=== PATIENT | female | born 1950 | race Hispanic/Latino ===

== ENCOUNTER 2017-01-06 15:58 | Inpatient (IN) | payer MEDICARE, OTHER ==
[2017-01-06 16:40] LABS: ABG ALLEN TEST YES; ARTERIAL BLOOD GAS HCO3 25.2 mmol/L (21-28); ARTERIAL BLOOD GAS O2 SAT 98.1 % (95-98); ARTERIAL BLOOD GAS PCO2 41 mm/Hg (35-45); ARTERIAL BLOOD GAS PO2 67 mm/Hg (80-100); ARTERIAL BLOOD GAS TCO2 26.7 mmol/L (22-28)
[2017-01-06] MEDS ORDERED: Nitroglycerin 2% Ointment Foilpak UD TOP STA (16:43)
--- NOTE | 2017-01-06 17:00 | RAD ---
HISTORY: sob COMPARISON: Comparison made with chest radiograph and CTA chest both dated 02/04/2016. FINDINGS: LUNGS: The current study re- demonstrates in situ left-sided MediPort with tip in the SVC/RA junction. Lung caraballo appear overinflated with consistent with emphysema. There appears to be some mild bibasilar atelectasis/scarring changes. PLEURA: No evidence of effusion or pneumothorax. No significant pleural effusion identified, no pneumothorax apparent. CARDIOVASCULAR: Normal. OSSEOUS STRUCTURES: No significant abnormalities. VISUALIZED UPPER ABDOMEN: Normal. OTHER FINDINGS: None. IMPRESSION: Hyperinflation without secondary underlying emphysema seen to much better advantage on prior CTA chest. Bibasilar atelectasis/scarring.
--- NOTE | 2017-01-06 17:22 | ED PDOC ---
HPI: SOB/CHF/COPD Time Seen by Provider: 01/06/17 16:12 Chief Complaint (Nursing): Respiratory Distress Chief Complaint (Provider): Weakness History Per: Patient History/Exam Limitations: no limitations Onset/Duration Of Symptoms: Days (3) Current Symptoms Are (Timing): Still Present Quality: Other (chest heaviness) Additional Complaint(s): The patient is a 66yo female, presents to the Ed for evaluation of weakness which started about three days ago but has been progressively worsening. Pt reports she fees light headed and as if she will pass out; additionally reports she is having neck pain. Pt reports she has shortness of breath, cough and phlegm which are chronic due to her COPD but have recently worsened; states she has been using more Albuterol than usual. She reports associated chest heaviness but denies any fever, chest pain, leg swelling, focal weaknesses or blurry vision. Pt does not offer any other medical complaints. PMHx: COPD, kidney failure, electrolyte abnormalities, HTN (taken off medications 10 yrs ago). PCP: Dr. Jared Culver Past Medical History Reviewed: Historical Data, Nursing Documentation, Vital Signs Vital Signs: Last Vital Signs Temp 98.6 F 01/06/17 16:02 Pulse 85 01/06/17 17:41 Resp 20 01/06/17 16:02 BP 206/92 H 01/06/17 16:02 Pulse Ox 94 L 01/06/17 17:41 - Medical History PMH: COPD, Fibromyalgia, HTN (not on meds) Denies: Chronic Kidney Disease Other PMH: Kidney failure, electrolyte abnormalities - Surgical History Surgical History: Cholecystectomy, Hernia Repair (ileostomy s/p complications with hernia repair) Other surgeries: port-a-cath - Family History Family History: States: [place] (father ( at age 48), brother ( at age 55)) - Social History Current smoker - smoking cessation education provided: Yes Alcohol: None Drugs: Denies - Immunization History Hx Tetanus Toxoid Vaccination: No Hx Influenza Vaccination: Yes Hx Pneumococcal Vaccination: Yes - Home Medications Home Medications: Ambulatory Orders Medication Instructions Recorded Alprazolam [Xanax] 0.5 mg PO HS 02/02/16 Budesonide/Formoterol Fumarate 2 puff IH Q12H 02/02/16 [Symbicort 160-4.5 Mcg Inhaler] Cyanocobalamin [Vitamin B12 1000 1,000 mcg IM Q14D 02/02/16 mcg/ml Inj] Ergocalciferol (Vitamin D2) 50,000 unit PO MWF 02/02/16 [Vitamin D] HYDROmorphone [Dilaudid] 2 mg PO Q4 PRN 02/02/16 Multivitamin/Iron/Folic Acid 1 tab PO DAILY 02/02/16 [Daily Multivitamin-Iron Tablet] Omeprazole 40 mg PO DAILY 02/02/16 Sodium Bicarbonate 325 mg PO BID 02/02/16 Zolpidem [Ambien] 5 mg HS 02/02/16 traZODone [Desyrel] 100 mg PO HS 02/02/16 Albuterol Sulfate [Proair Hfa] 2 puff IH Q4H PRN 01/06/17 Cetirizine HCl [All Day Allergy 10 mg PO QPM 01/06/17 Relief] Fluticasone Nasal [Flonase] 2 spray PRATIBHA HS PRN 01/06/17 Octreotide [SandoSTATIN] 100 mcg SQ BID 01/06/17 Zolpidem [Ambien] 5 mg PO HS 01/06/17 - Allergies Allergies/Adverse Reactions: Allergies Allergy/AdvReac Type Severity Reaction Status Date / Time Sulfa (Sulfonamide Allergy crystallized Verified 02/02/16 18:10 Antibiotics) kidneys Review of Systems ROS Statement: Except As Marked, All Systems Reviewed And Found Negative Constitutional: Negative for: Fever Eyes: Negative for: Vision Change Cardiovascular: Positive for: Light Headedness, Other (chest heaviness). Negative for: Chest Pain Respiratory: Positive for: Cough, Shortness of Breath, Sputum Neurological: Negative for: Weakness Physical Exam - Reviewed Nursing Documentation Reviewed: Yes Vital Signs Reviewed: Yes - Physical Exam Appears: Positive for: Non-toxic, Uncomfortable (tired appearing; very hypertensive) Head Exam: Positive for: ATRAUMATIC, NORMAL INSPECTION, NORMOCEPHALIC Skin: Positive for: Normal Color, Warm Eye Exam: Positive for: Normal appearance Neck: Positive for: Normal, Painless ROM, Supple Respiratory: Positive for: Rhonchi (coarse rhonchi diffusely) Gastrointestinal/Abdominal: Positive for: Normal Exam Extremity: Positive for: Pedal Edema (trace b/l leg edema) Neurologic/Psych: Positive for: Alert, Oriented - Laboratory Results Result Diagrams: 01/06/17 17:10 01/06/17 17:10 - ECG ECG: Positive for: Interpreted By Me, Viewed By Me ECG Rhythm: Positive for: Sinus Rhythm, 1st Degree Heart Block. Negative for: ST/T Changes Rate: 85 O2 Sat by Pulse Oximetry: 94 (RA) Pulse Ox Interpretation: Normal (low normal, c/w COPD) - Radiology X-Ray: Read By Radiologist - Progress Re-evaluation Time: 18:00 Condition: Improving,but remains with symptoms - Critical Care Total Time (In Min): 30 Documented Critical Care: Time excludes all time spent performint seperately billable procedures Medical Decision Making Medical Decision Making: Time: 1630 Impression: Weakness and HTN Differential: ACS, CHF, HTN encephalopathy electrolyte abnormality, acute kidney injury or failure. Plan: -- EKG -- Bloodwork -- Albuterol -- Solumedrol -- Nitrobid 2% Reassess Accession No. : [id number] Patient Name / ID : JORDEN DILL / [id number] Exam Date : 01/06/2017 16:44:06 ( Approved ) Study Comment : Sex / Age : F / 66Y Creator : Jan Patricio MD Dictator : Jan Patricio MD Research Contracts Supervisor : Inventory Specialist Manager : Jan Patricio MD Approver2 : Report Date : 01/06/2017 16:58:55 My Comment : HISTORY: sob COMPARISON: Comparison made with chest radiograph and CTA chest both dated 02/04/2016. FINDINGS: LUNGS: The current study re- demonstrates in situ left-sided MediPort with tip in the SVC/RA junction. Lung caraballo appear overinflated with consistent with emphysema. There appears to be some mild bibasilar atelectasis/scarring changes. PLEURA: No evidence of effusion or pneumothorax. No significant pleural effusion identified, no pneumothorax apparent. CARDIOVASCULAR: Normal. OSSEOUS STRUCTURES: No significant abnormalities. VISUALIZED UPPER ABDOMEN: Normal. OTHER FINDINGS: None. IMPRESSION: Hyperinflation without secondary underlying emphysema seen to much better advantage on prior CTA chest. Bibasilar atelectasis/scarring. Mild hyponatremia, hypomagnesemia, otherwise no clinically significant lab abnormalities. Ms Kaiser presents with COPD exacerbation (by history, increased use of nebulizer and exam findings of rhonchi) and new accelerated hypertension ( currently not on medications) and neck pain which may be atypical angina. Will need admission for stabilization of multisystem conditions. [facility] Cook admitting for PMD Dr Rodriguez. Requests Dr Martinez for Cardiology. DW pt findings and plan of care. Scribe Attestation: Documented by Christin Jung acting as a scribe for Jane Rivera MD. Provider Attestation: All medical record entries made by the Scribe were at my direction and personally dictated by me. I have reviewed the chart and agree that the record accurately reflects my personal performance of the history, physical exam, medical decision making, and the department course for this patient. I have also personally directed, reviewed, and agree with the discharge instructions and disposition. Disposition - Clinical Impression Clinical Impression: Hyponatremia, COPD exacerbation, Hypertension, uncontrolled Counseled Patient/Family Regarding: Studies Performed, Diagnosis - Disposition Disposition Time: 18:00 Condition: FAIR - Pt Status Changed To: Hospital Disposition Of: Inpatient - Admit Certification Admit to Inpatient:: After my assessment, the patient will require hospitalization for at least two midnights. This is because of the severity of symptoms shown, intensity of services needed, and/or the medical risk in this patient being treated as an outpatient. - POA Present On Arrival: None
[2017-01-06 17:32] LABS: ALB/GLOB RATIO 1.6 (1.0-2.1); ALBUMIN 4.3 g/dL (3.5-5.0); ALT/SGPT 34 U/L (9-52); AST/SGOT 27 U/L (14-36); BLOOD UREA NITROGEN 10 mg/dl (7-17); CALCIUM 9.5 mg/dL (8.4-10.2); GFR AFRICAN-AMERICAN > 60; GFR NON-AFRICAN AMERICAN 55; MAGNESIUM 1.2 MG/DL (1.6-2.3)
[2017-01-06 17:34] LABS: BASO # 0.1 K/uL (0.0-0.2); EOS # 0.2 K/uL (0.0-0.7); EOS % 2.7 % (0.0-4.0); HEMOGLOBIN 13.3 g/dL (12.0-16.0); LYMPH # 1.7 K/uL (1.0-4.3); LYMPH % 22.3 % (20.0-40.0); MEAN CORPUSCULAR HEMOGLOBIN 31.3 pg (27.0-31.0); MEAN PLATELET VOLUME 7.4 fl (7.2-11.7); MONO # 0.7 K/uL (0.0-0.8); MONO % 8.5 % (0.0-10.0); NEUT # 5.1 K/uL (1.8-7.0); NEUT % 65.5 % (50.0-75.0); RBC 4.25 Mil/uL (3.80-5.20); RED CELL DISTRIBUTION WIDTH 14.1 % (11.5-14.5); WHITE BLOOD COUNT 7.7 K/uL (4.8-10.8)
[2017-01-06] MEDS ORDERED: Albuterol-Ipratrop 3 mg / 0.5 (3 ml) UD INH STA (17:37)
[2017-01-06] MEDS ORDERED: Albuterol-Ipratrop 3 mg / 0.5 (3 ml) UD ONE (17:39)
[2017-01-06 17:44] LABS: B-TYPE NATRIURETIC PEPTIDE 228 pg/ml (0-900)
[2017-01-06 18:00] LABS: PARTIAL THROMBOPLASTIN TIME 137.3 Seconds (25.6-37.1); PROTHROMBIN TIME 10.8 Seconds (9.8-13.1)
[2017-01-06] MEDS ORDERED: Magnesium Sulfate 2 gm/50 ml 2 GM/50 ML BAG IVPB ONE (18:04)
[2017-01-06] MEDS ORDERED: Magnesium Sulfate 2 gm/50 ml 2 GM/50 ML BAG ONE (18:40)
[2017-01-06] MEDS ORDERED: Albuterol-Ipratrop 3 mg / 0.5 (3 ml) UD INH PRN (23:40)
[2017-01-06] MEDS ORDERED: Patient's Own Med (Budesonide/Formoterol Fumarate [Symbicort 160-4.5 Mcg Inhaler] 2 PUFF) IH SCH (23:45)
[2017-01-06] MEDS ORDERED: Patient's Own Med (Albuterol Sulfate 2 PUFF) IH PRN (23:46)
[2017-01-07] MEDS ORDERED: Albuterol HFA 90 mcg/actuation (8 g) INH PRN (00:25)
[2017-01-07 06:08] LABS: HEMOGLOBIN 13.6 g/dL (12.0-16.0); MEAN CORPUSCULAR HEMOGLOBIN 31.8 pg (27.0-31.0); MEAN CORPUSCULAR HGB CONC 33.8 g/dL (33.0-37.0); RBC 4.26 Mil/uL (3.80-5.20); WHITE BLOOD COUNT 8.4 K/uL (4.8-10.8)
[2017-01-07 06:15] LABS: ALB/GLOB RATIO 1.5 (1.0-2.1); ALBUMIN 4.7 g/dL (3.5-5.0); ALT/SGPT 33 U/L (9-52); AST/SGOT 33 U/L (14-36); BLOOD UREA NITROGEN 10 mg/dl (7-17); CALCIUM 9.9 mg/dL (8.4-10.2); GFR AFRICAN-AMERICAN > 60; GFR NON-AFRICAN AMERICAN > 60
[2017-01-07] MEDS ORDERED: PRO AIR HFA 8.5GM INHALER(FOR OR USE ONLY) IH PRN (07:30)
[2017-01-07] MEDS: Fluticasone-Salmeterol 250-50mcg Diskus IH SCH ×2 (08:42→10:26)
[2017-01-07] MEDS: Pantoprazole 40 mg EC Tab PO SCH (08:44)
[2017-01-07] MEDS: Multivitamin With Minerals Tab PO SCH (08:45)
[2017-01-07] MEDS ORDERED: IRON PO SCH (09:00)
[2017-01-07] MEDS ORDERED: Patient's Own Med (Omeprazole [Omeprazole] 40 MG) PO SCH (09:00)
[2017-01-07] MEDS ORDERED: MULTIVITAMIN PO SCH (09:00)
[2017-01-07] MEDS ORDERED: FOLIC ACID PO SCH (09:00)
--- NOTE | 2017-01-07 09:50 | CARD ---
APPROVED REPORT EKG Measurement Heart [id number] <Conclusion> Sinus rhythm with 1st degree AV block Otherwise normal ECG
--- NOTE | 2017-01-07 13:51 | CP.PCM.CON ---
History of Present Illness - History of Present Illness History of Present Illness: THE PATIENT IS A 66 YEAR OLD FEMALE WITH A HISTORY OF COPD WITH A LONG HISTORY OF CIGARETTE SMOKING UP TO 3 PACKS PER DAY. SHE ALSO HAS A HISTORY OF HYPERTENSION, ANXIETY AND AN ELECTROLYTE IMBALANCE RESULTING FROM SURGERY FOR AN ABDOMINAL HERNIA WITH COMPLICATIONS THAT RESULTED IN A PERMANENT ILIOSTOMY. SHE STATES SHE WAS TOLD YEARS AGO THAT SHE DIDN'T NEED HER MEDICINE FOR HYPERTENSION ANY MORE AND SHE STOPPED TAKING IT. FOR A FEW WEEKS NOW SHE HAD AN INCREASE IN HER CHRONIC SOB, COUGH AND PHLEGM PRODUCTION. SHE NOW FELT WEAK AND TIRED FELT IF SHE MAY BLACK OUT SO SHE CAME TO THE ER. IN THE ER SHE WAS FOUND TO HAVE EXACERBATION OF COPD AND HYPERTENSION AND WAS ADMITTED. CARDIOLOGY WAS CALLED FOR HYPERTENSION AND CHEST PRESSURE. BUT, SHE ABSOLUTELY DENIES ANY CHEST PAIN OF ANY KIND TO ME. Past Patient History - Past Medical History & Family History Past Medical History?: Yes - Past Social History Smoking Status: Current Some Days Smoker - CARDIAC Hx Cardiac Disorders: Yes Hx Hypertension: Yes (not on any medication) - PULMONARY Hx Respiratory Disorders: Yes Hx Chronic Obstructive Pulmonary Disease (COPD): Yes - NEUROLOGICAL Hx Neurological Disorder: Yes Other/Comment: FIBROMYALGIA - HEENT Hx HEENT Problems: No - RENAL Hx Chronic Kidney Disease: No - ENDOCRINE/METABOLIC Hx Endocrine Disorders: No - HEMATOLOGICAL/ONCOLOGICAL Hx Blood Disorders: No Other/Comment: cytomegalovirus - INTEGUMENTARY Hx Dermatological Problems: No - MUSCULOSKELETAL/RHEUMATOLOGICAL Hx Musculoskeletal Disorders: No Hx Falls: No - GASTROINTESTINAL Hx Gastrointestinal Disorders: Yes Hx Ileostomy: Yes - GENITOURINARY/GYNECOLOGICAL Hx Genitourinary Disorders: No - PSYCHIATRIC Hx Psychophysiologic Disorder: Yes Hx Anxiety: Yes Hx Substance Use: No - SURGICAL HISTORY Hx Surgeries: Yes Hx Cholecystectomy: Yes Hx Herniorrhaphy: Yes Hx Hysterectomy: Yes (ovary removal) - ANESTHESIA Hx Anesthesia: Yes Hx Anesthesia Reactions: No Hx Malignant Hyperthermia: No Has any member of the family had a problem w/ anesthesia?: No Meds Allergies/Adverse Reactions: Allergies Allergy/AdvReac Type Severity Reaction Status Date / Time Sulfa (Sulfonamide Allergy crystallized Verified 02/02/16 18:10 Antibiotics) kidneys - Medications Medications: Current Medications Albuterol Sulfate (Proair Hfa) 2 puff IH RQ4 PRN PRN Reason: Shortness of Breath Albuterol/Ipratropium (Duoneb 3 Mg/0.5 Mg (3 Ml) Ud) 3 ml INH RQ6 PRN PRN Reason: Shortness of Breath Last Admin: 01/07/17 00:49 Dose: 3 ml Alprazolam (Xanax) 0.5 mg PO Q12 [facility] Last Admin: 01/07/17 08:48 Dose: 0.5 mg Amlodipine Besylate (Norvasc) 10 mg PO DAILY [facility] Last Admin: 01/07/17 08:44 Dose: 10 mg Cyanocobalamin (Vitamin B12 1000 Mcg/Ml Inj) 1,000 mcg IM Q14D [facility] Last Admin: 01/07/17 01:03 Dose: Not Given Ergocalciferol (Drisdol 50,000 Intl Units Cap) 1 cap PO MWF [facility] Fluticasone Propionate (Flonase) 2 spr PRATIBHA HS PRN PRN Reason: Allergy symptoms Hydromorphone HCl (Dilaudid) 2 mg PO Q4 PRN PRN Reason: Pain, severe (8-10) Last Admin: 01/07/17 10:58 Dose: 2 mg Loratadine (Claritin) 10 mg PO QPM [facility] Multivitamins/Minerals (Therapeutic-M Tab) 1 tab PO DAILY [facility] Last Admin: 01/07/17 08:45 Dose: 1 tab Nicotine (Nicoderm Cq) 1 patch TD DAILY [facility] Last Admin: 01/07/17 08:44 Dose: 1 patch Octreotide Acetate (Sandostatin) 100 mcg SC BID [facility] Last Admin: 01/07/17 08:44 Dose: 100 mcg Pantoprazole Sodium (Protonix Ec Tab) 40 mg PO DAILY [facility] Last Admin: 01/07/17 08:44 Dose: 40 mg Fluticasone/Salmeterol (Advair Diskus 250/50) 2 puff IH Q12 [facility] Last Admin: 01/07/17 10:26 Dose: Not Given Sodium Bicarbonate (Sodium Bicarbonate Tab) 325 mg PO BID [facility] Last Admin: 01/07/17 08:45 Dose: 325 mg Trazodone HCl (Desyrel) 100 mg PO HS [facility] Last Admin: 01/07/17 00:33 Dose: 100 mg Zolpidem Tartrate (Ambien) 5 mg PO HS [facility] Last Admin: 01/07/17 00:39 Dose: 5 mg Physical Exam - Respiratory Exam Respiratory Exam: Rhonchi, Wheezes - Cardiovascular Exam Cardiovascular Exam: REGULAR RHYTHM, +S1, +S2 - Extremities Exam Extremities exam: Positive for: normal inspection - Additional Findings Additional findings: EKG NSR, FIRST DEGREE AV BLOCK TROPONIN NORMAL X 3 CXR CHRONIC CHANGES NA 129 Results - Vital Signs Recent Vital Signs: Last Vital Signs Temp 97.4 F L 01/07/17 12:16 Pulse 84 01/07/17 12:16 Resp 20 01/07/17 12:16 BP 142/77 01/07/17 12:16 Pulse Ox 94 L 01/07/17 12:16 - Labs Result Diagrams: 01/07/17 05:40 01/07/17 05:40 Labs: Laboratory Results - last 24 hr 01/07/17 01/07/17 01/07/17 00:30 05:40 05:40 WBC 8.4 RBC 4.26 Hgb 13.6 Hct 40.1 MCV 94.0 MCH 31.8 H MCHC 33.8 RDW 14.0 Plt Count 206 APTT 34.6 D Sodium Potassium Chloride Carbon Dioxide Anion Gap BUN Creatinine Est GFR ( Amer) Est GFR (Non-Af Amer) Random Glucose Calcium Total Bilirubin AST ALT Alkaline Phosphatase Troponin I < 0.0120 Total Protein Albumin Globulin Albumin/Globulin Ratio 01/07/17 01/07/17 05:40 08:30 WBC RBC Hgb Hct MCV MCH MCHC RDW Plt Count APTT Sodium 130 L Potassium 4.0 Chloride 95 L Carbon Dioxide 23 Anion Gap 16 BUN 10 Creatinine 0.9 Est GFR ( Amer) > 60 Est GFR (Non-Af Amer) > 60 Random Glucose 140 H Calcium 9.9 Total Bilirubin 0.6 AST 33 ALT 33 Alkaline Phosphatase 81 Troponin I < 0.0120 Total Protein 7.7 Albumin 4.7 Globulin 3.1 Albumin/Globulin Ratio 1.5 Assessment & Plan - Assessment and Plan (Free Text) Assessment: COPD EXACERBATION HYPERTENSION HYPONATREMIA Plan: CONTINUE AMLODIPINE AND BRONCHODILATORS ECHOCARDIOGRAM
--- NOTE | 2017-01-07 15:17 | CT ---
PROCEDURE: CT HEAD WITHOUT CONTRAST. HISTORY: Possible TIA COMPARISON: 09/21/2010 TECHNIQUE: Axial computed tomography images were obtained through the head/brain without intravenous contrast. Radiation dose: Total exam DLP = 769.48 mGy-cm. This CT exam was performed using one or more of the following dose reduction techniques: Automated exposure control, adjustment of the mA and/or kV according to patient size, and/or use of iterative reconstruction technique. FINDINGS: HEMORRHAGE: No intracranial hemorrhage. BRAIN: No mass effect or edema. Mild volume loss, essentially stable. Patchy and confluent hypodensities throughout the bilateral cerebral hemispheric white matter are most likely from chronic small vessel ischemic changes. VENTRICLES: Unremarkable. No hydrocephalus. CALVARIUM: Unremarkable. PARANASAL SINUSES: Unremarkable as visualized. No significant inflammatory changes. MASTOID AIR CELLS: Unremarkable as visualized. No inflammatory changes. OTHER FINDINGS: None. IMPRESSION: No CT evidence of acute intracranial hemorrhage or acute territorial infarct. Acute infarction may be CT occult within first 24 hours. If a focal deficit persists, consider followup CT or MRI for further evaluation. Other findings as above
--- NOTE | 2017-01-07 16:33 | US ---
PROCEDURE: Duplex ultrasound of the carotid and vertebral arteries. HISTORY: MD orders COMPARISON: None available. TECHNIQUE: Grayscale and duplex Doppler evaluation of the cervical carotid and vertebral arteries were performed. The common carotid, carotid bifurcations and cervical ICA and proximal ECA were evaluated. The vertebral arteries were evaluated for gross patency and direction. FINDINGS: RIGHT CAROTID ARTERIES: Common Carotid Artery: Patent with minimal calcific plaque. Carotid Bifurcation: Mild heterogeneous plaque. Internal Carotid Artery:Focal calcific plaque in the proximal segment. Maximal flow velocity of 113.6 cm/s. Tortuous course. External Carotid Artery (proximal branches): Patent with no significant focal plaque. ICA/CCA Ratio: 2.3 LEFT CAROTID ARTERIES: Common Carotid Artery: Minimal calcific plaque. Carotid Bifurcation: Heterogeneous plaque. Internal Carotid Artery:Minimal scattered heterogeneous plaque. Maximal flow velocity of 75.5 cm/s. Tortuous course. External Carotid Artery (proximal branches): Patent with no significant focal plaque. ICA/CCA Ratio: 1.7 VERTEBRAL ARTERIES: Right Vertebral Artery: Patent. Antegrade flow. Left Vertebral Artery: Patent. Retrograde flow. OTHER FINDINGS: None. IMPRESSION: No hemodynamically significant stenosis identified in the extracranial internal carotid arteries. Retrograde flow in the left vertebral artery.
[2017-01-07] MEDS: Azithromycin 500 MG in Sodium Chloride 0.9% 250 ML IVPB SCH (17:34)
[2017-01-07] MEDS: Albuterol-Ipratrop 3 mg / 0.5 (3 ml) UD INH SCH (19:31)
[2017-01-07] MEDS: Acetylcysteine 20% Inhal Soln (4ml) INH SCH (19:31)
--- NOTE | 2017-01-07 22:32 | CP.PCM.PN ---
Subjective - Date & Time of Evaluation Date of Evaluation: 01/07/17 Time of Evaluation: 11:00 - Subjective Subjective: 66 year old with history of multiple medical problems Presented to ER with symptoms of worsening cough and shortness of breath over the last week. Patient carries the diagnosis of COPD. She is an active smoker. Patient also has cough with expectoration of yellowish sputum. Patient complains also of dizziness with tendency to fall towards the right side that has been noticed for two weeks duration. Patient has history of complicated abdominal hernia surgery. Currently she has iliostomy. Objective - Vital Signs/Intake and Output Vital Signs (last 24 hours): Temp Pulse Resp BP Pulse Ox 97.8 F 71 18 124/74 93 L 01/07/17 20:30 01/07/17 21:00 01/07/17 20:30 01/07/17 20:30 01/07/17 20:30 Intake and Output: 01/07/17 01/08/17 18:59 06:59 Intake Total 500 Balance 500 - Medications Medications: Current Medications Acetylcysteine (Acetylcysteine 20%) 2 ml INH Q6H [facility] Last Admin: 01/07/17 19:31 Dose: 2 ml Albuterol Sulfate (Proair Hfa) 2 puff IH RQ4 PRN PRN Reason: Shortness of Breath Albuterol/Ipratropium (Duoneb 3 Mg/0.5 Mg (3 Ml) Ud) 3 ml INH RQ6 PRN PRN Reason: Shortness of Breath Last Admin: 01/07/17 00:49 Dose: 3 ml Albuterol/Ipratropium (Duoneb 3 Mg/0.5 Mg (3 Ml) Ud) 3 ml INH RQ6 [facility] Last Admin: 01/07/17 19:31 Dose: 3 ml Alprazolam (Xanax) 0.5 mg PO Q12 [facility] Last Admin: 01/07/17 21:08 Dose: 0.5 mg Amlodipine Besylate (Norvasc) 10 mg PO DAILY [facility] Last Admin: 01/07/17 08:44 Dose: 10 mg Cyanocobalamin (Vitamin B12 1000 Mcg/Ml Inj) 1,000 mcg IM Q14D [facility] Last Admin: 01/07/17 01:03 Dose: Not Given Ergocalciferol (Drisdol 50,000 Intl Units Cap) 1 cap PO MWF [facility] Fluticasone Propionate (Flonase) 2 spr PRATIBHA HS PRN PRN Reason: Allergy symptoms Hydromorphone HCl (Dilaudid) 2 mg PO Q4 PRN PRN Reason: Pain, severe (8-10) Last Admin: 01/07/17 21:13 Dose: 2 mg Azithromycin 500 mg/ Sodium (Chloride) 250 mls @ 250 mls/hr IVPB DAILY [facility] Last Admin: 01/07/17 17:34 Dose: 250 mls/hr Ceftriaxone Sodium 1 gm/ (Sodium Chloride) 100 mls @ 100 mls/hr IVPB DAILY [facility] Last Admin: 01/07/17 17:33 Dose: 100 mls/hr Loratadine (Claritin) 10 mg PO QPM [facility] Last Admin: 01/07/17 17:35 Dose: 10 mg Multivitamins/Minerals (Therapeutic-M Tab) 1 tab PO DAILY [facility] Last Admin: 01/07/17 08:45 Dose: 1 tab Nicotine (Nicoderm Cq) 1 patch TD DAILY [facility] Last Admin: 01/07/17 08:44 Dose: 1 patch Octreotide Acetate (Sandostatin) 100 mcg SC Q12 [facility] Last Admin: 01/07/17 21:16 Dose: 100 mcg Pantoprazole Sodium (Protonix Ec Tab) 40 mg PO DAILY [facility] Last Admin: 01/07/17 08:44 Dose: 40 mg Sodium Bicarbonate (Sodium Bicarbonate Tab) 325 mg PO BID [facility] Last Admin: 01/07/17 17:34 Dose: 325 mg Trazodone HCl (Desyrel) 100 mg PO HS [facility] Last Admin: 01/07/17 00:33 Dose: 100 mg Zolpidem Tartrate (Ambien) 5 mg PO HS [facility] Last Admin: 01/07/17 00:39 Dose: 5 mg - Labs Labs: 01/07/17 05:40 01/07/17 05:40 PT 10.8 Seconds (9.8-13.1) 01/06/17 17:10 INR 1.0 (0.9-1.2) 01/06/17 17:10 APTT 34.6 Seconds (25.6-37.1) D 01/07/17 05:40 - Head Exam Head Exam: ATRAUMATIC, NORMAL INSPECTION, NORMOCEPHALIC - Eye Exam Eye Exam: Conjunctival injection - ENT Exam ENT Exam: Normal Exam - Neck Exam Neck Exam: Full ROM - Respiratory Exam Respiratory Exam: Clear to Ausculation Bilateral, NORMAL BREATHING PATTERN - Cardiovascular Exam Cardiovascular Exam: REGULAR RHYTHM - GI/Abdominal Exam GI & Abdominal Exam: Soft, Normal Bowel Sounds Additional comments: iliostomy is in place - Back Exam Back Exam: Full ROM Assessment and Plan - Assessment and Plan (Free Text) Assessment: Exacerbation of COPD Rule out TIA versus CVA Iliostomy Chest pain Plan: Cardiology and neurology consults and follow recommendations CT head and carotid Doppler Start Solumedrol and bronchodilators Resume home medications Echocardiogram PT
[2017-01-08] MEDS: Albuterol-Ipratrop 3 mg / 0.5 (3 ml) UD INH SCH ×4 (00:59→19:05)
[2017-01-08] MEDS: Acetylcysteine 20% Inhal Soln (4ml) INH SCH ×3 (08:04→19:05)
[2017-01-08] MEDS ORDERED: Azithromycin 500 MG in Sodium Chloride 0.9% 250 ML IVPB SCH (09:00)
[2017-01-08] MEDS ORDERED: ERGOCALCIFEROL 50000 UNIT PO SCH (09:00)
[2017-01-08] MEDS: Multivitamin With Minerals Tab PO SCH (09:01)
[2017-01-08] MEDS: Pantoprazole 40 mg EC Tab PO SCH (09:01)
[2017-01-08] MEDS: Azithromycin 500 MG in Sodium Chloride 0.9% 250 ML IVPB SCH (09:03)
[2017-01-08] MEDS: Ergocalciferol 50,000 Intl Units Cap PO SCH (09:05)
--- NOTE | 2017-01-08 10:45 | CP.PCM.PN ---
Subjective - Date & Time of Evaluation Date of Evaluation: 01/08/17 Time of Evaluation: 08:45 - Subjective Subjective: NO CHEST PAIN BREATHING BETTER Objective - Vital Signs/Intake and Output Vital Signs (last 24 hours): Temp Pulse Resp BP Pulse Ox 97.2 F L 80 20 105/55 L 94 L 01/08/17 08:40 01/08/17 09:09 01/08/17 08:40 01/08/17 09:09 01/08/17 08:40 - Medications Medications: Current Medications Acetylcysteine (Acetylcysteine 20%) 2 ml INH Q6H [facility] Last Admin: 01/08/17 08:04 Dose: 2 ml Albuterol/Ipratropium (Duoneb 3 Mg/0.5 Mg (3 Ml) Ud) 3 ml INH RQ6 PRN PRN Reason: Shortness of Breath Last Admin: 01/07/17 00:49 Dose: 3 ml Albuterol/Ipratropium (Duoneb 3 Mg/0.5 Mg (3 Ml) Ud) 3 ml INH RQ6 [facility] Last Admin: 01/08/17 08:05 Dose: 3 ml Alprazolam (Xanax) 0.5 mg PO Q12 [facility] Last Admin: 01/08/17 09:01 Dose: 0.5 mg Amlodipine Besylate (Norvasc) 10 mg PO DAILY [facility] Last Admin: 01/08/17 09:09 Dose: Not Given Cyanocobalamin (Vitamin B12 1000 Mcg/Ml Inj) 1,000 mcg IM Q14D [facility] Last Admin: 01/07/17 01:03 Dose: Not Given Ergocalciferol (Drisdol 50,000 Intl Units Cap) 1 cap PO MWF [facility] Last Admin: 01/08/17 09:05 Dose: 1 cap Fluticasone Propionate (Flonase) 2 spr PRATIBHA HS PRN PRN Reason: Allergy symptoms Hydromorphone HCl (Dilaudid) 2 mg PO Q4 PRN PRN Reason: Pain, severe (8-10) Last Admin: 01/08/17 01:30 Dose: 2 mg Azithromycin 500 mg/ Sodium (Chloride) 250 mls @ 250 mls/hr IVPB DAILY [facility] Last Admin: 01/08/17 09:03 Dose: 250 mls/hr Ceftriaxone Sodium 1 gm/ (Sodium Chloride) 100 mls @ 100 mls/hr IVPB DAILY [facility] Last Admin: 01/08/17 09:04 Dose: 100 mls/hr Loratadine (Claritin) 10 mg PO QPM [facility] Last Admin: 01/07/17 17:35 Dose: 10 mg Multivitamins/Minerals (Therapeutic-M Tab) 1 tab PO DAILY [facility] Last Admin: 01/08/17 09:01 Dose: 1 tab Nicotine (Nicoderm Cq) 1 patch TD DAILY [facility] Last Admin: 01/08/17 09:05 Dose: 1 patch Octreotide Acetate (Sandostatin) 100 mcg SC Q12 [facility] Last Admin: 01/08/17 09:02 Dose: 100 mcg Pantoprazole Sodium (Protonix Ec Tab) 40 mg PO DAILY [facility] Last Admin: 01/08/17 09:01 Dose: 40 mg Sodium Bicarbonate (Sodium Bicarbonate Tab) 325 mg PO BID [facility] Last Admin: 01/08/17 09:02 Dose: 325 mg Trazodone HCl (Desyrel) 100 mg PO HS [facility] Last Admin: 01/07/17 23:04 Dose: 100 mg Zolpidem Tartrate (Ambien) 5 mg PO HS [facility] Last Admin: 01/07/17 23:04 Dose: 5 mg - Labs Labs: 01/07/17 05:40 01/07/17 05:40 PT 10.8 Seconds (9.8-13.1) 01/06/17 17:10 INR 1.0 (0.9-1.2) 01/06/17 17:10 APTT 34.6 Seconds (25.6-37.1) D 01/07/17 05:40 - Respiratory Exam Respiratory Exam: Clear to Ausculation Bilateral - Cardiovascular Exam Cardiovascular Exam: REGULAR RHYTHM, +S1, +S2 - Extremities Exam Extremities Exam: Normal Inspection - Additional Findings Additional findings: BP 105/55 THIS AM [employer] NSR Assessment and Plan - Assessment and Plan (Free Text) Assessment: COPD EXACERBATION HYPERTENSION HISTORY BUT BLOOD PRESSURE IS LOW ON PRESENT DOSE OF AMLODIPINE Plan: WILL NOT GIVE AMLODIPINE TODAY AND OBSERVE BLOOD PRESSURE AND RESUME IT AT A LOWER DOSE IF NEEDED
[2017-01-08] MEDS: methylPREDNISolone 40 MG in Sodium Chloride 0.9% 50 ML IVPB SCH ×2 (14:19→21:09)
--- NOTE | 2017-01-08 14:30 | CP.PCM.CON ---
History of Present Illness - History of Present Illness History of Present Illness: Mrs. Kaiser is a 66-year-old woman with a past medical history of COPD, hypertension, who states that for the last 3 days, she has been having neck pain and developed difficulty with ambulation, feeling dizzy and wobbly. Head turning and looking down also makes her dizzy. Review of Systems - Review of Systems All systems: reviewed and no additional remarkable complaints except Past Patient History - Past Medical History & Family History Past Medical History?: Yes - Past Social History Smoking Status: Current Some Days Smoker - CARDIAC Hx Cardiac Disorders: Yes Hx Hypertension: Yes (not on any medication) - PULMONARY Hx Respiratory Disorders: Yes Hx Chronic Obstructive Pulmonary Disease (COPD): Yes - NEUROLOGICAL Hx Neurological Disorder: Yes Other/Comment: FIBROMYALGIA - HEENT Hx HEENT Problems: No - RENAL Hx Chronic Kidney Disease: No - ENDOCRINE/METABOLIC Hx Endocrine Disorders: No - HEMATOLOGICAL/ONCOLOGICAL Hx Blood Disorders: No Other/Comment: cytomegalovirus - INTEGUMENTARY Hx Dermatological Problems: No - MUSCULOSKELETAL/RHEUMATOLOGICAL Hx Musculoskeletal Disorders: No Hx Falls: No - GASTROINTESTINAL Hx Gastrointestinal Disorders: Yes Hx Ileostomy: Yes - GENITOURINARY/GYNECOLOGICAL Hx Genitourinary Disorders: No - PSYCHIATRIC Hx Psychophysiologic Disorder: Yes Hx Anxiety: Yes Hx Substance Use: No - SURGICAL HISTORY Hx Surgeries: Yes Hx Cholecystectomy: Yes Hx Herniorrhaphy: Yes Hx Hysterectomy: Yes (ovary removal) - ANESTHESIA Hx Anesthesia: Yes Hx Anesthesia Reactions: No Hx Malignant Hyperthermia: No Has any member of the family had a problem w/ anesthesia?: No Meds Allergies/Adverse Reactions: Allergies Allergy/AdvReac Type Severity Reaction Status Date / Time Sulfa (Sulfonamide Allergy crystallized Verified 02/02/16 18:10 Antibiotics) kidneys - Medications Medications: Current Medications Acetylcysteine (Acetylcysteine 20%) 2 ml INH Q6H [facility] Last Admin: 01/08/17 13:10 Dose: 2 ml Albuterol/Ipratropium (Duoneb 3 Mg/0.5 Mg (3 Ml) Ud) 3 ml INH RQ6 PRN PRN Reason: Shortness of Breath Last Admin: 01/07/17 00:49 Dose: 3 ml Albuterol/Ipratropium (Duoneb 3 Mg/0.5 Mg (3 Ml) Ud) 3 ml INH RQ6 [facility] Last Admin: 01/08/17 13:10 Dose: 3 ml Alprazolam (Xanax) 0.5 mg PO Q12 [facility] Last Admin: 01/08/17 09:01 Dose: 0.5 mg Cyanocobalamin (Vitamin B12 1000 Mcg/Ml Inj) 1,000 mcg IM Q14D [facility] Last Admin: 01/07/17 01:03 Dose: Not Given Ergocalciferol (Drisdol 50,000 Intl Units Cap) 1 cap PO MWF [facility] Last Admin: 01/08/17 09:05 Dose: 1 cap Fluticasone Propionate (Flonase) 2 spr PRATIBHA HS PRN PRN Reason: Allergy symptoms Hydromorphone HCl (Dilaudid) 2 mg PO Q4 PRN PRN Reason: Pain, severe (8-10) Last Admin: 01/08/17 14:18 Dose: 2 mg Azithromycin 500 mg/ Sodium (Chloride) 250 mls @ 250 mls/hr IVPB DAILY [facility] Last Admin: 01/08/17 09:03 Dose: 250 mls/hr Ceftriaxone Sodium 1 gm/ (Sodium Chloride) 100 mls @ 100 mls/hr IVPB DAILY [facility] Last Admin: 01/08/17 09:04 Dose: 100 mls/hr Methylprednisolone 40 mg/ (Sodium Chloride) 50 mls @ 100 mls/hr IVPB Q12 [facility] Loratadine (Claritin) 10 mg PO QPM [facility] Last Admin: 01/07/17 17:35 Dose: 10 mg Multivitamins/Minerals (Therapeutic-M Tab) 1 tab PO DAILY [facility] Last Admin: 01/08/17 09:01 Dose: 1 tab Nicotine (Nicoderm Cq) 1 patch TD DAILY [facility] Last Admin: 01/08/17 09:05 Dose: 1 patch Octreotide Acetate (Sandostatin) 100 mcg SC Q12 [facility] Last Admin: 01/08/17 09:02 Dose: 100 mcg Pantoprazole Sodium (Protonix Ec Tab) 40 mg PO DAILY [facility] Last Admin: 01/08/17 09:01 Dose: 40 mg Sodium Bicarbonate (Sodium Bicarbonate Tab) 325 mg PO BID [facility] Last Admin: 01/08/17 09:02 Dose: 325 mg Trazodone HCl (Desyrel) 100 mg PO HS [facility] Last Admin: 01/07/17 23:04 Dose: 100 mg Zolpidem Tartrate (Ambien) 5 mg PO HS [facility] Last Admin: 01/07/17 23:04 Dose: 5 mg Physical Exam - Constitutional Appears: Cachectic - Head Exam Head Exam: ATRAUMATIC, NORMAL INSPECTION, NORMOCEPHALIC - Eye Exam Eye Exam: Nystagmus Pupil Exam: PERRL - ENT Exam ENT Exam: Mucous Membranes Moist, Normal Exam - Neck Exam Neck exam: Positive for: Tenderness - Respiratory Exam Respiratory Exam: Decreased Breath Sounds, Wheezes, Stridor - Cardiovascular Exam Cardiovascular Exam: REGULAR RHYTHM, +S1, +S2 - GI/Abdominal Exam GI & Abdominal Exam: Normal Bowel Sounds, Soft. absent: Tenderness - Rectal Exam Rectal Exam: Deferred - Extremities Exam Extremities exam: Positive for: normal inspection - Back Exam Back exam: NORMAL INSPECTION - Neurological Exam Neurological exam: Abnormal Gait, Alert, CN II-XII Intact, Oriented x3, Reflexes Normal - Expanded Neurological Exam Expanded Patient oriented to: person, place, time Cranial nerves: Facial Sensation: Normal, Nystagmus: Abnormal Right Ataxia: Yes Cerebellar Function: Finger to Nose: Abnormal Right, Heel to Hall: Abnormal Right Upper motor neuron: Babinski Sign: Normal Sensory exam: Lower Extremity Light Touch: Normal, Lower Extremity Pin Prick: Normal, Upper Extremity Light Touch: Normal, Upper Extremity Pin Prick: Normal Neuro motor strength exam: Left Upper Extremity: 5, Right Upper Extremity: 5, Left Lower Extremity: 5, Right Lower Extremity: 5 DTR: Achilles Tendon Left: 2+, Achilles Tendon Right: 2+, Bicep Left: 2+, Bicep Right: 2+, Brachioradialis Left: 2+, Brachioradialis Right: 2+, Patellar Left: 2 +, Patellar Right: 2+, Tricep Left: 2+, Tricep Right: 2+ - Psychiatric Exam Psychiatric exam: Normal Affect, Normal Mood - Skin Skin Exam: Dry, Intact, Normal Color, Warm Results - Vital Signs Recent Vital Signs: Last Vital Signs Temp 97.3 F L 01/08/17 12:42 Pulse 71 01/08/17 12:42 Resp 20 01/08/17 12:42 BP 112/63 01/08/17 12:42 Pulse Ox 97 01/08/17 12:42 - Labs Result Diagrams: 01/07/17 05:40 01/07/17 05:40 - Imaging and Cardiology CT scan - head Status: Image reviewed by me, Report reviewed by me (No acute findings) Additional comment: No acute findings. Assessment & Plan (1) Vertigo Assessment and Plan: There is concern that there may be vertebrobasilar insufficiency in consideration of the carotid doppler report. I would like to obtain a STAT CTA of the head/neck and obtain an MRI of the brain. Since she has nystagmus on exam and continues to be ataxia with vertigo, I recommend loading her with Plavix 300 mg PO once and aspirin 81 mg PO. Continue aspirin 81 mg daily. Fluids with NS at 100 mL/hour. PT/OT eval and treat. Check lipids, HbA1c, TSH, B12. Permissive hypertension (do note treat SBP <180/100 mm Hg). Thank you. Status: Acute Priority: High
--- NOTE | 2017-01-08 16:06 | CARD ---
APPROVED REPORT EXAM: Two-dimensional and M-mode echocardiogram with Doppler and color Doppler. Other Information Quality : GoodRhythm : NSR INDICATION Hypertension/HCVD COPD 2D DIMENSIONS IVSd0.70 (0.7-1.1cm)LVDd4.30 (3.9-5.9cm) PWd0.68 (0.7-1.1cm)IVSs0.77 (0.8-1.2cm) LVDs3.04 (2.5-4.0cm)FS (%) 29.3 % PWs0.82 (0.8-1.2cm) M-Mode DIMENSIONS Left Atrium (MM)1.83 (2.5-4.0cm)IVSd0.79 (0.7-1.1cm) Aortic Root2.47 (2.2-3.7cm)LVDd5.09 (4.0-5.6cm) Aortic Cusp Exc.1.54 (1.5-2.0cm)PWd0.94 (0.7-1.1cm) IVSs1.62 cmFS (%) 52 % LVDs2.44 (2.0-3.8cm)PWs1.50 cm Mitral Valve MV E Xcmeyfri38.3cm/sMV DECEL [id number] A Hftktzjc59.6cm/s MV SRO63dsD/A ratio1.1MVA (PHT)4.58cm2 TDI Lateral E' Peak V11.16cm/sMedial E' Peak V10.43cm/sE/Lateral E'7.4 E/Medial E'7.9 Tricuspid Valve TR Peak Bqtwjjrz467uo/sRAP [id number] Peak Gr.26mmHg [id number] LEFT VENTRICLE The left ventricle is normal size. There is normal left ventricular wall thickness. The left ventricular function is normal. The left ventricular ejection fraction is within the normal range. The Ejection Fraction is 65-70%. There is normal LV segmental wall motion. The left ventricular diastolic function is normal. No left ventricle thrombus noted on this study. There is no mass noted in the left ventricle. RIGHT VENTRICLE The right ventricle is normal size. There is normal right ventricular wall thickness. The right ventricular systolic function is normal. ATRIA The left atrium size is normal. The right atrium size is normal. The interatrial septum is intact with no evidence for an atrial septal defect. AORTIC VALVE The aortic valve is normal in structure and function. No aortic regurgitation is present. There is no aortic valvular stenosis. There is no aortic valvular vegetation. MITRAL VALVE The mitral valve is normal in structure and function. There is no evidence of mitral valve prolapse. There is no mitral valve stenosis. There is no mitral valve regurgitation noted. TRICUSPID VALVE The tricuspid valve is normal in structure and function. There is mild tricuspid regurgitation. Right ventricular systolic pressure is estimated at 36 mmHg. There is mild pulmonary hypertension. There is no tricuspid valve prolapse or vegetation. There is no tricuspid valve stenosis. PULMONIC VALVE The pulmonary valve is normal in structure and function. There is no pulmonic valvular regurgitation. There is no pulmonic valvular stenosis. GREAT VESSELS The aortic root is normal in size. The IVC is normal in size and collapses >50% with inspiration. PERICARDIAL EFFUSION The pericardium appears normal. There is no pleural effusion. <Conclusion> The left ventricle is normal size. The left ventricular function is normal. The left ventricular ejection fraction is within the normal range. The Ejection Fraction is 65-70%. There is mild tricuspid regurgitation. Right ventricular systolic pressure is estimated at 36 mmHg. There is mild pulmonary hypertension.
[2017-01-08] MEDS ORDERED: Iodixanol 320 MG/ML 100 ML BOTTLE IV ONE (16:48)
[2017-01-08] MEDS ORDERED: Sodium Chloride 0.9% 50 ML IV ONE (16:49)
--- NOTE | 2017-01-08 19:49 | CT ---
EXAM: CT Angiography Head With Intravenous Contrast CT Angiography Neck With Intravenous Contrast CLINICAL HISTORY: 66 years old, female; Signs and symptoms; Other: Verterobasilar insufficiency; Additional info: Vertebrobasilar insufficiency TECHNIQUE: Axial computed tomographic angiography images of the head and neck with intravenous contrast using CT angiography protocol. This CT exam was performed using one or more of the following dose reduction techniques: automated exposure control, adjustment of the mA and/or kV according to patient size, and/or use of iterative reconstruction technique. MIP reconstructed images were created and reviewed. Coronal and sagittal reformatted images were created and reviewed. CONTRAST: 75 mL of VISIPAQUE 320 administered intravenously. EXAM DATE/TIME: 01/08/2017 2:04 PM COMPARISON: Prior head CT of 01/07/2017 2:38:13 PM FINDINGS: HEAD: RIGHT ANTERIOR CEREBRAL ARTERY: No evidence of occlusion. No aneurysm visualized. RIGHT MIDDLE CEREBRAL ARTERY: No evidence of occlusion. No aneurysm visualized. RIGHT POSTERIOR CEREBRAL ARTERY: The P3 branches of the right posterior cerebral artery are small in size compared with the left, however, there is no evidence of occlusion. RIGHT INTERNAL CAROTID ARTERY: Calcified plaque is seen in the cavernous and supraclinoid segments of the right internal carotid artery, with no evidence of associated significant stenosis or occlusion. LEFT ANTERIOR CEREBRAL ARTERY: No evidence of occlusion. No aneurysm visualized. LEFT MIDDLE CEREBRAL ARTERY: No evidence of occlusion. No aneurysm visualized. LEFT POSTERIOR CEREBRAL ARTERY: No evidence of occlusion. No aneurysm visualized. LEFT INTERNAL CAROTID ARTERY:Calcified plaque is seen in the cavernous and supraclinoid segments of the left internal carotid artery, with no evidence of significant associated stenosis or occlusion. BASILAR ARTERY: No evidence of occlusion or significant stenosis. No aneurysm visualized. NECK: RIGHT COMMON CAROTID ARTERY: No evidence of occlusion or significant stenosis. No evidence of dissection. RIGHT INTERNAL CAROTID ARTERY: Small amount of calcified plaque in the proximal right internal carotid artery, causing an approximately 20-30% stenosis. No evidence of occlusion. RIGHT EXTERNAL CAROTID ARTERY: No evidence of occlusion. RIGHT VERTEBRAL ARTERY: Small amount of calcified plaque at the origin of the right vertebral artery, with no evidence of associated significant stenosis or occlusion. Right vertebral artery is dominant. LEFT COMMON CAROTID ARTERY: No evidence of occlusion or significant stenosis. No evidence of dissection. LEFT INTERNAL CAROTID ARTERY: No evidence of occlusion or significant stenosis. No evidence of dissection. LEFT EXTERNAL CAROTID ARTERY: No evidence of occlusion. LEFT VERTEBRAL ARTERY: No evidence of occlusion or significant stenosis. No evidence of dissection. LUNG APICES: Diffuse emphysematous changes incidentally noted in the lung apices. HEAD and NECK: BRAIN: No CT findings to suggest an acute, large territorial infarct, however, small or early acute infarcts may not be visible on CT. BONES/JOINTS: No acute bony abnormality identified. SOFT TISSUES: No acute abnormality of the visualized soft tissues seen. TUBES, LINES AND DEVICES: Left Mediport catheter is in place. CAROTID STENOSIS REFERENCE USING NASCET CRITERIA: % ICA stenosis = (1 - narrowest ICA diameter/diameter of distal cervical ICA) x 100. Mild - <50% stenosis. Moderate - 50-69% stenosis. Severe - 70-94% stenosis. Near occlusion - 95-99% stenosis. Occluded - 100% stenosis. IMPRESSION: - No evidence of occlusion or other acute abnormality of the major intracranial or neck arteries. - Findings compatible with a mild approximately 20-30% stenosis of the right internal carotid artery. No evidence of occlusion. - See above for remaining findings.
--- NOTE | 2017-01-08 22:30 | CP.PCM.PN ---
Subjective - Date & Time of Evaluation Date of Evaluation: 01/08/17 Time of Evaluation: 16:50 - Subjective Subjective: Still has dizzness with tendency to fall to the rt. side. Objective - Vital Signs/Intake and Output Vital Signs (last 24 hours): Temp Pulse Resp BP Pulse Ox 97.4 F L 81 18 141/68 93 L 01/08/17 18:59 01/08/17 18:59 01/08/17 18:59 01/08/17 18:59 01/08/17 18:59 Intake and Output: 01/08/17 01/09/17 18:59 06:59 Intake Total 300 Output Total 60 Balance 300 -60 - Medications Medications: Current Medications Acetylcysteine (Acetylcysteine 20%) 2 ml INH Q6H [facility] Last Admin: 01/08/17 19:05 Dose: 2 ml Albuterol/Ipratropium (Duoneb 3 Mg/0.5 Mg (3 Ml) Ud) 3 ml INH RQ6 PRN PRN Reason: Shortness of Breath Last Admin: 01/07/17 00:49 Dose: 3 ml Albuterol/Ipratropium (Duoneb 3 Mg/0.5 Mg (3 Ml) Ud) 3 ml INH RQ6 [facility] Last Admin: 01/08/17 19:05 Dose: 3 ml Alprazolam (Xanax) 0.5 mg PO Q12 [facility] Last Admin: 01/08/17 21:10 Dose: 0.5 mg Aspirin (Ecotrin) 81 mg PO DAILY [facility] Last Admin: 01/08/17 14:36 Dose: 81 mg Cyanocobalamin (Vitamin B12 1000 Mcg/Ml Inj) 1,000 mcg IM Q14D [facility] Last Admin: 01/07/17 01:03 Dose: Not Given Ergocalciferol (Drisdol 50,000 Intl Units Cap) 1 cap PO MWF [facility] Last Admin: 01/08/17 09:05 Dose: 1 cap Fluticasone Propionate (Flonase) 2 spr PRATIBHA HS PRN PRN Reason: Allergy symptoms Hydromorphone HCl (Dilaudid) 2 mg PO Q4 PRN PRN Reason: Pain, severe (8-10) Last Admin: 01/08/17 14:18 Dose: 2 mg Azithromycin 500 mg/ Sodium (Chloride) 250 mls @ 250 mls/hr IVPB DAILY [facility] Last Admin: 01/08/17 09:03 Dose: 250 mls/hr Ceftriaxone Sodium 1 gm/ (Sodium Chloride) 100 mls @ 100 mls/hr IVPB DAILY [facility] Last Admin: 01/08/17 09:04 Dose: 100 mls/hr Methylprednisolone 40 mg/ (Sodium Chloride) 50 mls @ 100 mls/hr IVPB Q12 [facility] Last Admin: 01/08/17 21:09 Dose: 100 mls/hr Loratadine (Claritin) 10 mg PO QPM [facility] Last Admin: 01/08/17 21:10 Dose: 10 mg Multivitamins/Minerals (Therapeutic-M Tab) 1 tab PO DAILY [facility] Last Admin: 01/08/17 09:01 Dose: 1 tab Nicotine (Nicoderm Cq) 1 patch TD DAILY [facility] Last Admin: 01/08/17 09:05 Dose: 1 patch Octreotide Acetate (Sandostatin) 100 mcg SC Q12 [facility] Last Admin: 01/08/17 09:02 Dose: 100 mcg Pantoprazole Sodium (Protonix Ec Tab) 40 mg PO DAILY [facility] Last Admin: 01/08/17 09:01 Dose: 40 mg Sodium Bicarbonate (Sodium Bicarbonate Tab) 325 mg PO BID [facility] Last Admin: 01/08/17 21:11 Dose: 325 mg Trazodone HCl (Desyrel) 100 mg PO HS [facility] Last Admin: 01/07/17 23:04 Dose: 100 mg Zolpidem Tartrate (Ambien) 5 mg PO HS [facility] Last Admin: 01/07/17 23:04 Dose: 5 mg - Labs Labs: 01/07/17 05:40 01/07/17 05:40 PT 10.8 Seconds (9.8-13.1) 01/06/17 17:10 INR 1.0 (0.9-1.2) 01/06/17 17:10 APTT 34.6 Seconds (25.6-37.1) D 01/07/17 05:40 - Head Exam Head Exam: ATRAUMATIC, NORMOCEPHALIC - Eye Exam Eye Exam: PERRL - ENT Exam ENT Exam: Mucous Membranes Moist, Normal Exam - Neck Exam Neck Exam: Full ROM - Respiratory Exam Respiratory Exam: Rhonchi, Wheezes - Cardiovascular Exam Cardiovascular Exam: REGULAR RHYTHM - GI/Abdominal Exam GI & Abdominal Exam: Soft, Normal Bowel Sounds - Back Exam Back Exam: Full ROM - Neurological Exam Additional comments: Tendency to fall to the rt. side Assessment and Plan - Assessment and Plan (Free Text) Assessment: Exacerbation of COPD Rule out TIA versus CVA Iliostomy Chest pain Plan: Continue current medications and treatment . for CTA and follow neurology recommendations Fall precautions
[2017-01-09] MEDS: Acetylcysteine 20% Inhal Soln (4ml) INH SCH ×4 (01:13→20:53)
[2017-01-09] MEDS: Albuterol-Ipratrop 3 mg / 0.5 (3 ml) UD INH SCH ×4 (01:14→20:53)
[2017-01-09] MEDS: Pantoprazole 40 mg EC Tab PO SCH (08:50)
[2017-01-09] MEDS: Multivitamin With Minerals Tab PO SCH (08:50)
[2017-01-09] MEDS: methylPREDNISolone 40 MG in Sodium Chloride 0.9% 50 ML IVPB SCH ×2 (08:51→21:36)
[2017-01-09] MEDS: Azithromycin 500 MG in Sodium Chloride 0.9% 250 ML IVPB SCH (08:55)
--- NOTE | 2017-01-09 09:45 | CP.PCM.PN ---
Subjective - Date & Time of Evaluation Date of Evaluation: 01/09/17 Time of Evaluation: 09:00 - Subjective Subjective: NO CHEST PAIN OR SOB Objective - Vital Signs/Intake and Output Vital Signs (last 24 hours): Temp Pulse Resp BP Pulse Ox 97.7 F 69 18 99/63 L 97 01/09/17 08:00 01/09/17 08:00 01/09/17 08:00 01/09/17 08:00 01/09/17 08:00 Intake and Output: 01/09/17 01/09/17 06:59 18:59 Output Total 60 Balance -60 - Medications Medications: Current Medications Acetylcysteine (Acetylcysteine 20%) 2 ml INH Q6H [facility] Last Admin: 01/09/17 08:09 Dose: 2 ml Albuterol/Ipratropium (Duoneb 3 Mg/0.5 Mg (3 Ml) Ud) 3 ml INH RQ6 PRN PRN Reason: Shortness of Breath Last Admin: 01/07/17 00:49 Dose: 3 ml Albuterol/Ipratropium (Duoneb 3 Mg/0.5 Mg (3 Ml) Ud) 3 ml INH RQ6 [facility] Last Admin: 01/09/17 08:10 Dose: 3 ml Alprazolam (Xanax) 0.5 mg PO Q12 [facility] Last Admin: 01/09/17 08:57 Dose: 0.5 mg Aspirin (Ecotrin) 81 mg PO DAILY [facility] Last Admin: 01/09/17 08:52 Dose: 81 mg Cyanocobalamin (Vitamin B12 1000 Mcg/Ml Inj) 1,000 mcg IM Q14D [facility] Last Admin: 01/07/17 01:03 Dose: Not Given Ergocalciferol (Drisdol 50,000 Intl Units Cap) 1 cap PO MWF [facility] Last Admin: 01/08/17 09:05 Dose: 1 cap Fluticasone Propionate (Flonase) 2 spr PRATIBHA HS PRN PRN Reason: Allergy symptoms Hydromorphone HCl (Dilaudid) 2 mg PO Q4 PRN PRN Reason: Pain, severe (8-10) Last Admin: 01/09/17 02:20 Dose: 2 mg Azithromycin 500 mg/ Sodium (Chloride) 250 mls @ 250 mls/hr IVPB DAILY [facility] Last Admin: 01/09/17 08:55 Dose: 250 mls/hr Ceftriaxone Sodium 1 gm/ (Sodium Chloride) 100 mls @ 100 mls/hr IVPB DAILY [facility] Last Admin: 01/09/17 08:51 Dose: 100 mls/hr Methylprednisolone 40 mg/ (Sodium Chloride) 50 mls @ 100 mls/hr IVPB Q12 [facility] Last Admin: 01/09/17 08:51 Dose: 100 mls/hr Loratadine (Claritin) 10 mg PO QPM [facility] Last Admin: 01/08/17 21:10 Dose: 10 mg Multivitamins/Minerals (Therapeutic-M Tab) 1 tab PO DAILY [facility] Last Admin: 01/09/17 08:50 Dose: 1 tab Nicotine (Nicoderm Cq) 1 patch TD DAILY [facility] Last Admin: 01/09/17 08:50 Dose: 1 patch Octreotide Acetate (Sandostatin) 100 mcg SC Q12 [facility] Last Admin: 01/08/17 23:03 Dose: 100 mcg Pantoprazole Sodium (Protonix Ec Tab) 40 mg PO DAILY [facility] Last Admin: 01/09/17 08:50 Dose: 40 mg Sodium Bicarbonate (Sodium Bicarbonate Tab) 325 mg PO BID [facility] Last Admin: 01/09/17 08:49 Dose: 325 mg Trazodone HCl (Desyrel) 100 mg PO HS [facility] Last Admin: 01/08/17 23:59 Dose: 100 mg Zolpidem Tartrate (Ambien) 5 mg PO HS [facility] Last Admin: 01/08/17 23:59 Dose: 5 mg - Labs Labs: 01/07/17 05:40 01/07/17 05:40 PT 10.8 Seconds (9.8-13.1) 01/06/17 17:10 INR 1.0 (0.9-1.2) 01/06/17 17:10 APTT 34.6 Seconds (25.6-37.1) D 01/07/17 05:40 - Respiratory Exam Respiratory Exam: Clear to Ausculation Bilateral - Cardiovascular Exam Cardiovascular Exam: REGULAR RHYTHM, +S1, +S2 - Extremities Exam Extremities Exam: Normal Inspection - Additional Findings 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
--- NOTE | 2017-01-09 13:38 | MRI ---
PROCEDURE: MRI BRAIN WITHOUT CONTRAST HISTORY: rule out posterior circulation stroke COMPARISON: Noncontrast head CT from 01/07/2017 and MRI brain without contrast from 09/25/2010 TECHNIQUE: Multiplanar, multisequence MR images of the brain were obtained without intravenous contrast enhancement. FINDINGS: HEMORRHAGE: None DWI: No evidence of an acute or early subacute infarction. BRAIN PARENCHYMA: There are mild chronic microangiopathic changes. There is no mass, mass effect or abnormal extra-axial fluid collection. The midline sagittal structures are normal. VENTRICLES: There is mild age-related global parenchymal volume loss and proportionate enlargement of the ventricles and cortical sulci. CRANIUM: There is normal bone marrow signal pattern. ORBITS: Grossly unremarkable. PARANASAL SINUSES/MASTOIDS: The paranasal sinuses are predominantly clear. There are small mastoid effusions. VASCULAR SYSTEM: There are normal signal voids in the larger intracranial arteries. OTHER FINDINGS: None. IMPRESSION: No acute intracranial abnormality. Specifically, no evidence of acute infarction. Mild chronic microangiopathic changes and mild age-related global parenchymal volume loss.
--- NOTE | 2017-01-09 22:10 | CP.PCM.PN ---
Subjective - Date & Time of Evaluation Date of Evaluation: 01/09/17 Time of Evaluation: 16:30 - Subjective Subjective: Pt. had MRI today. , she still has tendency to fall on standing Objective - Vital Signs/Intake and Output Vital Signs (last 24 hours): Temp Pulse Resp BP Pulse Ox 97.8 F 77 18 93/52 L 93 L 01/09/17 20:04 01/09/17 20:04 01/09/17 20:04 01/09/17 20:04 01/09/17 20:04 Intake and Output: 01/09/17 01/10/17 18:59 06:59 Intake Total 1100 Balance 1100 - Medications Medications: Current Medications Acetylcysteine (Acetylcysteine 20%) 2 ml INH Q6H [facility] Last Admin: 01/09/17 20:53 Dose: 2 ml Albuterol/Ipratropium (Duoneb 3 Mg/0.5 Mg (3 Ml) Ud) 3 ml INH RQ6 PRN PRN Reason: Shortness of Breath Last Admin: 01/07/17 00:49 Dose: 3 ml Albuterol/Ipratropium (Duoneb 3 Mg/0.5 Mg (3 Ml) Ud) 3 ml INH RQ6 [facility] Last Admin: 01/09/17 20:53 Dose: 3 ml Alprazolam (Xanax) 0.5 mg PO Q12 [facility] Last Admin: 01/09/17 21:40 Dose: 0.5 mg Aspirin (Ecotrin) 81 mg PO DAILY [facility] Last Admin: 01/09/17 08:52 Dose: 81 mg Cyanocobalamin (Vitamin B12 1000 Mcg/Ml Inj) 1,000 mcg IM Q14D [facility] Last Admin: 01/07/17 01:03 Dose: Not Given Ergocalciferol (Drisdol 50,000 Intl Units Cap) 1 cap PO MWF [facility] Last Admin: 01/08/17 09:05 Dose: 1 cap Fluticasone Propionate (Flonase) 2 spr PRATIBHA HS PRN PRN Reason: Allergy symptoms Hydromorphone HCl (Dilaudid) 2 mg PO Q4 PRN PRN Reason: Pain, severe (8-10) Last Admin: 01/09/17 13:11 Dose: 2 mg Azithromycin 500 mg/ Sodium (Chloride) 250 mls @ 250 mls/hr IVPB DAILY [facility] Last Admin: 01/09/17 08:55 Dose: 250 mls/hr Ceftriaxone Sodium 1 gm/ (Sodium Chloride) 100 mls @ 100 mls/hr IVPB DAILY [facility] Last Admin: 01/09/17 08:51 Dose: 100 mls/hr Methylprednisolone 40 mg/ (Sodium Chloride) 50 mls @ 100 mls/hr IVPB Q12 [facility] Last Admin: 01/09/17 21:36 Dose: 100 mls/hr Loratadine (Claritin) 10 mg PO QPM [facility] Last Admin: 01/09/17 17:14 Dose: 10 mg Multivitamins/Minerals (Therapeutic-M Tab) 1 tab PO DAILY [facility] Last Admin: 01/09/17 08:50 Dose: 1 tab Nicotine (Nicoderm Cq) 1 patch TD DAILY [facility] Last Admin: 01/09/17 08:50 Dose: 1 patch Octreotide Acetate (Sandostatin) 100 mcg SC Q12 [facility] Last Admin: 01/09/17 21:40 Dose: 100 mcg Pantoprazole Sodium (Protonix Ec Tab) 40 mg PO DAILY [facility] Last Admin: 01/09/17 08:50 Dose: 40 mg Sodium Bicarbonate (Sodium Bicarbonate Tab) 325 mg PO BID [facility] Last Admin: 01/09/17 16:55 Dose: 325 mg Trazodone HCl (Desyrel) 100 mg PO HS [facility] Last Admin: 01/08/17 23:59 Dose: 100 mg Zolpidem Tartrate (Ambien) 5 mg PO HS [facility] Last Admin: 01/08/17 23:59 Dose: 5 mg - Labs Labs: 01/07/17 05:40 01/07/17 05:40 PT 10.8 Seconds (9.8-13.1) 01/06/17 17:10 INR 1.0 (0.9-1.2) 01/06/17 17:10 APTT 34.6 Seconds (25.6-37.1) D 01/07/17 05:40 - Head Exam Head Exam: ATRAUMATIC, NORMOCEPHALIC - Eye Exam Eye Exam: Normal appearance Pupil Exam: PERRL - ENT Exam ENT Exam: Mucous Membranes Moist - Neck Exam Neck Exam: Full ROM - Respiratory Exam Respiratory Exam: Rhonchi - Cardiovascular Exam Cardiovascular Exam: REGULAR RHYTHM - GI/Abdominal Exam GI & Abdominal Exam: Soft, Normal Bowel Sounds - Extremities Exam Extremities Exam: Full ROM - Back Exam Back Exam: NORMAL INSPECTION - Neurological Exam Neurological Exam: Alert, Awake Additional comments: unstedeaness and tendency to fall toward rt. side Assessment and Plan - Assessment and Plan (Free Text) Assessment: Exacerbation of COPD Rule out TIA versus CVA Iliostomy Chest pain Plan: Continue current medications. For MRI today F/U recommendations of neurologest.
[2017-01-10] MEDS: Acetylcysteine 20% Inhal Soln (4ml) INH SCH ×2 (00:59→07:53)
[2017-01-10] MEDS: Albuterol-Ipratrop 3 mg / 0.5 (3 ml) UD INH SCH ×3 (01:00→13:43)
[2017-01-10 08:28] VITALS: O2SAT 95
--- NOTE | 2017-01-10 09:11 | CP.PCM.PN ---
Subjective - Date & Time of Evaluation Date of Evaluation: 01/10/17 Time of Evaluation: 08:15 - Subjective Subjective: NO CHEST PAIN OR SOB Objective - Vital Signs/Intake and Output Vital Signs (last 24 hours): Temp Pulse Resp BP Pulse Ox 97.7 F 69 18 112/69 95 01/10/17 08:00 01/10/17 08:00 01/10/17 08:00 01/10/17 08:00 01/10/17 08:00 Intake and Output: 01/10/17 01/10/17 06:59 18:59 Intake Total 340 Balance 340 - Medications Medications: Current Medications Acetylcysteine (Acetylcysteine 20%) 2 ml INH Q6H [facility] Last Admin: 01/10/17 07:53 Dose: 2 ml Albuterol/Ipratropium (Duoneb 3 Mg/0.5 Mg (3 Ml) Ud) 3 ml INH RQ6 PRN PRN Reason: Shortness of Breath Last Admin: 01/07/17 00:49 Dose: 3 ml Albuterol/Ipratropium (Duoneb 3 Mg/0.5 Mg (3 Ml) Ud) 3 ml INH RQ6 [facility] Last Admin: 01/10/17 07:53 Dose: 3 ml Alprazolam (Xanax) 0.5 mg PO Q12 [facility] Last Admin: 01/09/17 21:40 Dose: 0.5 mg Aspirin (Ecotrin) 81 mg PO DAILY [facility] Last Admin: 01/09/17 08:52 Dose: 81 mg Cyanocobalamin (Vitamin B12 1000 Mcg/Ml Inj) 1,000 mcg IM Q14D [facility] Last Admin: 01/07/17 01:03 Dose: Not Given Ergocalciferol (Drisdol 50,000 Intl Units Cap) 1 cap PO MWF [facility] Last Admin: 01/08/17 09:05 Dose: 1 cap Fluticasone Propionate (Flonase) 2 spr PRATIBHA HS PRN PRN Reason: Allergy symptoms Hydromorphone HCl (Dilaudid) 2 mg PO Q4 PRN PRN Reason: Pain, severe (8-10) Last Admin: 01/10/17 01:27 Dose: 2 mg Azithromycin 500 mg/ Sodium (Chloride) 250 mls @ 250 mls/hr IVPB DAILY [facility] Last Admin: 01/09/17 08:55 Dose: 250 mls/hr Ceftriaxone Sodium 1 gm/ (Sodium Chloride) 100 mls @ 100 mls/hr IVPB DAILY [facility] Last Admin: 01/09/17 08:51 Dose: 100 mls/hr Methylprednisolone 40 mg/ (Sodium Chloride) 50 mls @ 100 mls/hr IVPB Q12 [facility] Last Admin: 01/09/17 21:36 Dose: 100 mls/hr Loratadine (Claritin) 10 mg PO QPM [facility] Last Admin: 01/09/17 17:14 Dose: 10 mg Multivitamins/Minerals (Therapeutic-M Tab) 1 tab PO DAILY [facility] Last Admin: 01/09/17 08:50 Dose: 1 tab Nicotine (Nicoderm Cq) 1 patch TD DAILY [facility] Last Admin: 01/09/17 08:50 Dose: 1 patch Octreotide Acetate (Sandostatin) 100 mcg SC Q12 [facility] Last Admin: 01/09/17 21:40 Dose: 100 mcg Pantoprazole Sodium (Protonix Ec Tab) 40 mg PO DAILY [facility] Last Admin: 01/09/17 08:50 Dose: 40 mg Sodium Bicarbonate (Sodium Bicarbonate Tab) 325 mg PO BID [facility] Last Admin: 01/09/17 16:55 Dose: 325 mg Trazodone HCl (Desyrel) 100 mg PO HS [facility] Last Admin: 01/09/17 23:53 Dose: 100 mg Zolpidem Tartrate (Ambien) 5 mg PO HS [facility] Last Admin: 01/09/17 23:54 Dose: 5 mg - Labs Labs: 01/07/17 05:40 01/07/17 05:40 PT 10.8 Seconds (9.8-13.1) 01/06/17 17:10 INR 1.0 (0.9-1.2) 01/06/17 17:10 APTT 34.6 Seconds (25.6-37.1) D 01/07/17 05:40 - Respiratory Exam Respiratory Exam: Clear to Ausculation Bilateral - Cardiovascular Exam Cardiovascular Exam: REGULAR RHYTHM, +S1, +S2 - Extremities Exam Extremities Exam: Normal Inspection - Additional Findings 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
[2017-01-10] MEDS: Ergocalciferol 50,000 Intl Units Cap PO SCH (09:38)
[2017-01-10] MEDS: Multivitamin With Minerals Tab PO SCH (09:38)
[2017-01-10] MEDS: Pantoprazole 40 mg EC Tab PO SCH (09:39)
[2017-01-10] MEDS: methylPREDNISolone 40 MG in Sodium Chloride 0.9% 50 ML IVPB SCH (09:40)
[2017-01-10] MEDS: Azithromycin 500 MG in Sodium Chloride 0.9% 250 ML IVPB SCH (09:54)
[2017-01-10 14:11] LABS: T4 6.45 ug/dl (5.5-11.0)
[2017-01-10 14:24] LABS: T3 0.524 nmol/L (1.49-2.60)
[2017-01-10 16:19] VITALS: BP 124/71; PULSE 74; RESP 16; TEMP 97.7
== END 2017-01-10 15:55 | DRG 191 ==
LOC: H.ER 15:58 → H.ERHOLD 17:59 → H.TEL 23:06
PROVIDERS: ADMIT Internal Medicine; ATTEND Internal Medicine
PROC: 3E0F7GC Introduction of Other Therapeutic Substance into Respiratory Tract, Via Natural or Artificial Opening (ICD-10-PCS; principal; 2017-01-07)
DX: J44.1 Chronic obstructive pulmonary disease with (acute) exacerbation (principal); E87.1 Hypo-osmolality and hyponatremia; I10 Essential (primary) hypertension; H55.00 Unspecified nystagmus; Z79.82 Long term (current) use of aspirin; M79.7 Fibromyalgia; R29.6 Repeated falls; Z90.49 Acquired absence of other specified parts of digestive tract; Z90.710 Acquired absence of both cervix and uterus; F41.9 Anxiety disorder, unspecified; M54.2 Cervicalgia; R07.89 Other chest pain; R42 Dizziness and giddiness; F17.210 Nicotine dependence, cigarettes, uncomplicated

== ENCOUNTER 2017-01-10 12:01 | Inpatient (IN) | payer OTHER ==
[2017-01-10 16:34] VITALS: BMI 20.2
[2017-01-10 17:39] VITALS: RESP 20
[2017-01-10] MEDS ORDERED: Albuterol-Ipratrop 3 mg / 0.5 (3 ml) UD INH PRN (20:14)
[2017-01-11] MEDS: Albuterol-Ipratrop 3 mg / 0.5 (3 ml) UD INH SCH ×4 (01:00→19:47)
[2017-01-11] MEDS: Multivitamin With Minerals Tab PO SCH (09:06)
--- NOTE | 2017-01-11 15:59 | CP.PCM.CON ---
History of Present Illness - History of Present Illness History of Present Illness: THE PATIENT IS A 67 YEAR OLD FEMALE WHO WAS ADMITTED TO LAST WEEK FOR COPD EXACERBATION AND NOW SHE WAS DISCHARGED TO TCU FOR REHAB. SHE ALSO HAS A HISTORY OF LABILE HYPERTENSION WITH A SYSTOLIC BLOOD PRESSURE OVER 200 IN THE ER LAST WEEK AND WAS GIVEN AMLODIPINE 10 MGS DAILY. HER BLOOD PRESSURE FELL TO LOW TO LOW-NORMAL SO IT WAS STOPPED. SHE ALSO HAD VERTIGO AND ATAXIA AND WAS SEEN BY NEUROLOGY AND HAD A NEGATIVE NEUROLOGY WORK UP WITH CAROTID US, CT SCAN AND MRI. HER BP WAS ELEVATED TODAY HIGH 182/80 IN TCU. SHE DENIES CHEAT PAIN OR PALPITATIONS. Past Patient History - Past Medical History & Family History Past Medical History?: Yes - Past Social History Smoking Status: Current Some Days Smoker - CARDIAC Hx Cardiac Disorders: Yes Hx Hypertension: Yes - PULMONARY Hx Chronic Obstructive Pulmonary Disease (COPD): Yes - NEUROLOGICAL Hx Neurological Disorder: Yes Other/Comment: FIBROMYALGIA - HEENT Hx HEENT Problems: No - RENAL Hx Chronic Kidney Disease: No - ENDOCRINE/METABOLIC Hx Endocrine Disorders: No - HEMATOLOGICAL/ONCOLOGICAL Hx Blood Disorders: No Hx AIDS: No Hx Human Immunodeficiency Virus (HIV): No Other/Comment: cytomegalovirus - INTEGUMENTARY Hx Dermatological Problems: No - MUSCULOSKELETAL/RHEUMATOLOGICAL Hx Musculoskeletal Disorders: No Hx Falls: No - GASTROINTESTINAL Hx Gastrointestinal Disorders: Yes Hx Ileostomy: Yes - GENITOURINARY/GYNECOLOGICAL Hx Genitourinary Disorders: No - PSYCHIATRIC Hx Psychophysiologic Disorder: Yes Hx Anxiety: Yes Hx Substance Use: No - SURGICAL HISTORY Hx Surgeries: Yes Hx Cholecystectomy: Yes Hx Herniorrhaphy: Yes Hx Hysterectomy: Yes (ovary removal) - ANESTHESIA Hx Anesthesia: Yes Hx Anesthesia Reactions: No Hx Malignant Hyperthermia: No Meds Allergies/Adverse Reactions: Allergies Allergy/AdvReac Type Severity Reaction Status Date / Time Sulfa (Sulfonamide Allergy crystallized Verified 01/10/17 16:34 Antibiotics) kidneys - Medications Medications: Current Medications Albuterol/Ipratropium (Duoneb 3 Mg/0.5 Mg (3 Ml) Ud) 3 ml INH RQ6 PRN PRN Reason: Shortness of Breath Albuterol/Ipratropium (Duoneb 3 Mg/0.5 Mg (3 Ml) Ud) 3 ml INH RQ6 [facility] Last Admin: 01/11/17 13:30 Dose: 3 ml Alprazolam (Xanax) 0.5 mg PO Q12 [facility] Last Admin: 01/11/17 09:11 Dose: 0.5 mg Amlodipine Besylate (Norvasc) 2.5 mg PO DAILY [facility] Aspirin (Aspirin Chewable) 81 mg PO DAILY [facility] Last Admin: 01/11/17 09:06 Dose: 81 mg Cyanocobalamin (Vitamin B12 1000 Mcg/Ml Inj) 1,000 mcg IM Q14D [facility] Last Admin: 01/10/17 21:06 Dose: Not Given Ergocalciferol (Drisdol 50,000 Intl Units Cap) 1 cap PO MWF [facility] Fluticasone Propionate (Flonase) 2 spr PRATIBHA HS PRN PRN Reason: Allergy symptoms Last Admin: 01/11/17 09:07 Dose: 2 spr Hydromorphone HCl (Dilaudid) 2 mg PO Q4 PRN PRN Reason: Pain, severe (8-10) Last Admin: 01/11/17 02:50 Dose: 2 mg Loratadine (Claritin) 10 mg PO QPM [facility] Multivitamins/Minerals (Therapeutic-M Tab) 1 tab PO DAILY [facility] Last Admin: 01/11/17 09:06 Dose: 1 tab Nicotine (Nicoderm Cq) 1 patch TD DAILY [facility] Last Admin: 01/11/17 09:06 Dose: 1 patch Octreotide Acetate (Sandostatin) 100 mcg SC Q12 [facility] Last Admin: 01/11/17 09:22 Dose: 100 mcg Prednisone (Prednisone Tab) 10 mg PO BID [facility] Stop: 01/13/17 17:01 Last Admin: 01/11/17 09:06 Dose: 10 mg Prednisone (Prednisone Tab) 10 mg PO DAILY [facility] Stop: 01/16/17 09:01 Sodium Bicarbonate (Sodium Bicarbonate Tab) 325 mg PO BID [facility] Last Admin: 01/11/17 09:08 Dose: 325 mg Trazodone HCl (Desyrel) 100 mg PO HS [facility] Last Admin: 01/10/17 22:03 Dose: 100 mg Zolpidem Tartrate (Ambien) 5 mg PO HS [facility] Last Admin: 01/10/17 22:03 Dose: 5 mg Physical Exam - Respiratory Exam Respiratory Exam: Clear to Auscultation Bilateral - Cardiovascular Exam Cardiovascular Exam: REGULAR RHYTHM, +S1, +S2 - Extremities Exam Extremities exam: Positive for: normal inspection Results - Vital Signs Recent Vital Signs: Last Vital Signs Temp 97.5 F L 01/11/17 08:41 Pulse 57 L 01/11/17 08:41 Resp 20 01/11/17 08:41 BP 175/76 H 01/11/17 11:30 Pulse Ox 95 01/11/17 11:30 Assessment & Plan - Assessment and Plan (Free Text) Assessment: COPD HYPERTENSION DECONDITIONING Plan: WILL RESUME AMLODIPINE BUT AT ONLY 2.5 MGS DAILY AND OBSERVE BP CONTINUE BRONCHODILATORS AND PREDNISONE CONTINUE PHYSICAL THERAPY
[2017-01-11] MEDS ORDERED: Bacitracin OINT 15GM TOP SCH (19:15)
[2017-01-11] MEDS: Bacitracin 500 Units/gm Oint Foilpak UD TOP SCH (21:54)
[2017-01-12] MEDS: Albuterol-Ipratrop 3 mg / 0.5 (3 ml) UD INH SCH ×4 (00:59→19:36)
[2017-01-12] MEDS: Multivitamin With Minerals Tab PO SCH (08:33)
[2017-01-12] MEDS: Bacitracin 500 Units/gm Oint Foilpak UD TOP SCH ×2 (09:01→17:47)
--- NOTE | 2017-01-12 13:34 | CP.PCM.CON ---
History of Present Illness - History of Present Illness History of Present Illness: RECURRENT DIZZINESS FOR THE LAST 3 MONTHS LASTS IN FEW SECONDS BUT THE LAST ONE WAS ABRUPT ONSET AND LASTED FOR ABOUT > 24 HRS LOST HER BALANCE AND BODY TENDENCY TO MOVE ON HER RIGHT NO DOUBLE VISION NAUSEA VOMITING OR SPEECH IMPAIRMENT CHRONIC NECK PAIN NO MOTOR WEAKNESS Past Patient History - Past Medical History & Family History Past Medical History?: Yes - Past Social History Smoking Status: Current Some Days Smoker - CARDIAC Hx Cardiac Disorders: Yes Hx Hypertension: Yes - PULMONARY Hx Chronic Obstructive Pulmonary Disease (COPD): Yes - NEUROLOGICAL Hx Neurological Disorder: Yes Other/Comment: FIBROMYALGIA - HEENT Hx HEENT Problems: No - RENAL Hx Chronic Kidney Disease: No - ENDOCRINE/METABOLIC Hx Endocrine Disorders: No - HEMATOLOGICAL/ONCOLOGICAL Hx Blood Disorders: No Hx AIDS: No Hx Human Immunodeficiency Virus (HIV): No Other/Comment: cytomegalovirus - INTEGUMENTARY Hx Dermatological Problems: No - MUSCULOSKELETAL/RHEUMATOLOGICAL Hx Musculoskeletal Disorders: No Hx Falls: No - GASTROINTESTINAL Hx Gastrointestinal Disorders: Yes Hx Ileostomy: Yes - GENITOURINARY/GYNECOLOGICAL Hx Genitourinary Disorders: No - PSYCHIATRIC Hx Psychophysiologic Disorder: Yes Hx Anxiety: Yes Hx Substance Use: No - SURGICAL HISTORY Hx Surgeries: Yes Hx Cholecystectomy: Yes Hx Herniorrhaphy: Yes Hx Hysterectomy: Yes (ovary removal) - ANESTHESIA Hx Anesthesia: Yes Hx Anesthesia Reactions: No Hx Malignant Hyperthermia: No Meds Allergies/Adverse Reactions: Allergies Allergy/AdvReac Type Severity Reaction Status Date / Time Sulfa (Sulfonamide Allergy crystallized Verified 01/10/17 16:34 Antibiotics) kidneys - Medications Medications: Current Medications Albuterol/Ipratropium (Duoneb 3 Mg/0.5 Mg (3 Ml) Ud) 3 ml INH RQ6 PRN PRN Reason: Shortness of Breath Albuterol/Ipratropium (Duoneb 3 Mg/0.5 Mg (3 Ml) Ud) 3 ml INH RQ6 [facility] Last Admin: 01/12/17 08:41 Dose: 3 ml Alprazolam (Xanax) 0.5 mg PO Q12 [facility] Last Admin: 01/12/17 08:58 Dose: 0.5 mg Amlodipine Besylate (Norvasc) 2.5 mg PO DAILY [facility] Last Admin: 01/12/17 08:32 Dose: 2.5 mg Aspirin (Aspirin Chewable) 81 mg PO DAILY [facility] Last Admin: 01/12/17 08:33 Dose: 81 mg Bacitracin (Bacitracin) 1 ea TOP BID [facility] Last Admin: 01/12/17 09:01 Dose: 1 ea Cyanocobalamin (Vitamin B12 1000 Mcg/Ml Inj) 1,000 mcg IM Q14D [facility] Last Admin: 01/10/17 21:06 Dose: Not Given Ergocalciferol (Drisdol 50,000 Intl Units Cap) 1 cap PO MWF [facility] Fluticasone Propionate (Flonase) 2 spr PRATIBHA HS PRN PRN Reason: Allergy symptoms Last Admin: 01/11/17 21:54 Dose: 2 spr Hydromorphone HCl (Dilaudid) 2 mg PO Q4 PRN PRN Reason: Pain, severe (8-10) Last Admin: 01/12/17 10:15 Dose: 2 mg Loratadine (Claritin) 10 mg PO QPM [facility] Last Admin: 01/11/17 18:30 Dose: 10 mg Multivitamins/Minerals (Therapeutic-M Tab) 1 tab PO DAILY [facility] Last Admin: 01/12/17 08:33 Dose: 1 tab Nicotine (Nicoderm Cq) 1 patch TD DAILY [facility] Last Admin: 01/12/17 08:32 Dose: 1 patch Octreotide Acetate (Sandostatin) 100 mcg SC Q12 [facility] Last Admin: 01/12/17 10:12 Dose: 100 mcg Prednisone (Prednisone Tab) 10 mg PO BID [facility] Stop: 01/13/17 17:01 Last Admin: 01/12/17 08:32 Dose: 10 mg Prednisone (Prednisone Tab) 10 mg PO DAILY [facility] Stop: 01/16/17 09:01 Sodium Bicarbonate (Sodium Bicarbonate Tab) 325 mg PO BID [facility] Last Admin: 01/12/17 08:32 Dose: 325 mg Trazodone HCl (Desyrel) 100 mg PO HS [facility] Last Admin: 01/11/17 21:54 Dose: 100 mg Zolpidem Tartrate (Ambien) 5 mg PO HS [facility] Last Admin: 01/11/17 21:54 Dose: 5 mg Physical Exam - Constitutional Appears: Non-toxic - Head Exam Head Exam: ATRAUMATIC - Eye Exam Eye Exam: EOMI, Normal appearance Pupil Exam: NORMAL ACCOMODATION - ENT Exam ENT Exam: Normal Exam - Respiratory Exam Additional comments: RIGHT CAROTID BRUIT - Cardiovascular Exam Additional comments: HEART RATE IS REGULARLY IRREGULAR VITAL SIGNS BEEN CHECKED BY ME SITTING 200 /80 PULSE 72 ONE MINUTE LATER STANDING 210/80 PULSE 110 - Neurological Exam Neurological exam: Abnormal Gait - Expanded Neurological Exam Expanded Patient oriented to: person, place, time Cranial nerves: EOM's Intact: Normal, Facial Palsey w/Forehead Movement: Normal , Facial Palsey w/o Forehead Movement: Normal, Facial Sensation: Normal, Gag Reflex: Normal, Nystagmus: Normal (2 -3 BEAT), Tongue Deviation: Normal Cerebellar Function: Finger to Nose: Abnormal Left, Romberg: Abnormal Left, Abnormal Right (POSITIVE) Upper motor neuron: Babinski Sign: Normal, Satish Neglect: Normal, Pronator Drift : Normal, Sensory Extinction: Normal Sensory exam: Lower Extremity Light Touch: Abnormal Left, Abnormal Right Neuro motor strength exam: Left Upper Extremity: 5, Right Upper Extremity: 5, Left Lower Extremity: 5, Right Lower Extremity: 5 DTR: Achilles Tendon Left: 1+, Achilles Tendon Right: 3+, Bicep Left: 0, Bicep Right: 2+, Brachioradialis Left: 1+, Brachioradialis Right: 1+, Patellar Left: 1 +, Patellar Right: 3+, Tricep Left: 1+, Tricep Right: 1+ Results - Vital Signs Recent Vital Signs: Last Vital Signs Temp 97.2 F L 01/12/17 08:09 Pulse 62 01/12/17 08:32 Resp 20 01/12/17 08:09 BP 155/76 H 01/12/17 08:32 Pulse Ox 98 01/12/17 08:09 - Imaging and Cardiology MRI BRAIN - NO ACUTE PATHOLOGY Additional comment: CAROTID DOPPLER ICA /CCA RT 2.3 LT 1.7 AND LEFT VERTEBRAL RETROGRADE FLOW Assessment & Plan (1) Steal syndrome, subclavian Assessment and Plan: CORRECT HER ORTHOSTATIC BLOOD PRESSURE CHANGES CORRECT ELECTROLYTES HYDRATION PLAVIX FOR STROKE PROPHYLAXIS FALL PRECAUTION PT CARDIOLOGY TO FOLLOW REASSURANCE AMBIEN , TRAZADONE CAN COME OFF AND LIMITED USE OF NARCOTICS Status: Acute
--- NOTE | 2017-01-12 15:49 | CP.PCM.PN ---
Subjective - Date & Time of Evaluation Date of Evaluation: 01/12/17 Time of Evaluation: 15:00 - Subjective Subjective: NO CHEST PAIN OR SOB Objective - Vital Signs/Intake and Output Vital Signs (last 24 hours): Temp Pulse Resp BP Pulse Ox 97.2 F L 62 20 155/76 H 98 01/12/17 08:09 01/12/17 08:32 01/12/17 08:09 01/12/17 08:32 01/12/17 08:09 - Medications Medications: Current Medications Albuterol/Ipratropium (Duoneb 3 Mg/0.5 Mg (3 Ml) Ud) 3 ml INH RQ6 PRN PRN Reason: Shortness of Breath Albuterol/Ipratropium (Duoneb 3 Mg/0.5 Mg (3 Ml) Ud) 3 ml INH RQ6 [facility] Last Admin: 01/12/17 13:58 Dose: 3 ml Alprazolam (Xanax) 0.5 mg PO Q12 [facility] Last Admin: 01/12/17 08:58 Dose: 0.5 mg Amlodipine Besylate (Norvasc) 2.5 mg PO DAILY [facility] Last Admin: 01/12/17 08:32 Dose: 2.5 mg Bacitracin (Bacitracin) 1 ea TOP BID [facility] Last Admin: 01/12/17 09:01 Dose: 1 ea Clopidogrel Bisulfate (Plavix) 75 mg PO DAILY [facility] Cyanocobalamin (Vitamin B12 1000 Mcg/Ml Inj) 1,000 mcg IM Q14D [facility] Last Admin: 01/10/17 21:06 Dose: Not Given Ergocalciferol (Drisdol 50,000 Intl Units Cap) 1 cap PO MWF [facility] Fluticasone Propionate (Flonase) 2 spr PRATIBHA HS PRN PRN Reason: Allergy symptoms Last Admin: 01/11/17 21:54 Dose: 2 spr Hydromorphone HCl (Dilaudid) 2 mg PO Q4 PRN PRN Reason: Pain, severe (8-10) Last Admin: 01/12/17 10:15 Dose: 2 mg Loratadine (Claritin) 10 mg PO QPM [facility] Last Admin: 01/11/17 18:30 Dose: 10 mg Multivitamins/Minerals (Therapeutic-M Tab) 1 tab PO DAILY [facility] Last Admin: 01/12/17 08:33 Dose: 1 tab Nicotine (Nicoderm Cq) 1 patch TD DAILY [facility] Last Admin: 01/12/17 08:32 Dose: 1 patch Octreotide Acetate (Sandostatin) 100 mcg SC Q12 [facility] Last Admin: 01/12/17 10:12 Dose: 100 mcg Prednisone (Prednisone Tab) 10 mg PO BID [facility] Stop: 01/13/17 17:01 Last Admin: 01/12/17 08:32 Dose: 10 mg Prednisone (Prednisone Tab) 10 mg PO DAILY [facility] Stop: 01/16/17 09:01 Sodium Bicarbonate (Sodium Bicarbonate Tab) 325 mg PO BID [facility] Last Admin: 01/12/17 08:32 Dose: 325 mg Trazodone HCl (Desyrel) 100 mg PO HS [facility] Last Admin: 01/11/17 21:54 Dose: 100 mg Zolpidem Tartrate (Ambien) 5 mg PO [facility] Last Admin: 01/11/17 21:54 Dose: 5 mg - Respiratory Exam Respiratory Exam: Clear to Ausculation Bilateral - Cardiovascular Exam Cardiovascular Exam: REGULAR RHYTHM, +S1, +S2 - Extremities Exam Extremities Exam: Normal Inspection Assessment and Plan - Assessment and Plan (Free Text) Assessment: HYPERTENSION COPD Plan: CONTINUE LOW DOSE AMLODIPINE, CLOPIDOGREL AND BRONCHODILATORS
--- NOTE | 2017-01-12 22:48 | CP.PCM.HP ---
History of Present Illness - History of Present Illness History of Present Illness: 67 years old white female was admitted to TCU after an acute care admission. Patient has been complaining of dizziness with tendency to fall towards the right side. Work up that included MRI, CTA, MRA of the head and neck did not reveal any significant abnormalities. Patient denied to have any shortness of breath, palpations, and other review of systems is negative. Past Patient History - Past Medical History & Family History Past Medical History?: Yes - Past Social History Smoking Status: Current Some Days Smoker - CARDIAC Hx Cardiac Disorders: Yes Hx Hypertension: Yes - PULMONARY Hx Chronic Obstructive Pulmonary Disease (COPD): Yes - NEUROLOGICAL Hx Neurological Disorder: Yes Other/Comment: FIBROMYALGIA - HEENT Hx HEENT Problems: No - RENAL Hx Chronic Kidney Disease: No - ENDOCRINE/METABOLIC Hx Endocrine Disorders: No - HEMATOLOGICAL/ONCOLOGICAL Hx Blood Disorders: No Hx AIDS: No Hx Human Immunodeficiency Virus (HIV): No Other/Comment: cytomegalovirus - INTEGUMENTARY Hx Dermatological Problems: No - MUSCULOSKELETAL/RHEUMATOLOGICAL Hx Musculoskeletal Disorders: No Hx Falls: No - GASTROINTESTINAL Hx Gastrointestinal Disorders: Yes Hx Ileostomy: Yes - GENITOURINARY/GYNECOLOGICAL Hx Genitourinary Disorders: No - PSYCHIATRIC Hx Psychophysiologic Disorder: Yes Hx Anxiety: Yes Hx Substance Use: No - SURGICAL HISTORY Hx Surgeries: Yes Hx Cholecystectomy: Yes Hx Herniorrhaphy: Yes Hx Hysterectomy: Yes (ovary removal) - ANESTHESIA Hx Anesthesia: Yes Hx Anesthesia Reactions: No Hx Malignant Hyperthermia: No Meds Allergies/Adverse Reactions: Allergies Allergy/AdvReac Type Severity Reaction Status Date / Time Sulfa (Sulfonamide Allergy crystallized Verified 01/10/17 16:34 Antibiotics) kidneys Physical Exam - Head Exam Head Exam: ATRAUMATIC, NORMOCEPHALIC - Eye Exam Eye Exam: PERRL - ENT Exam ENT Exam: Mucous Membranes Moist, Normal Exam - Neck Exam Neck exam: Positive for: Full Rom - Respiratory Exam Respiratory Exam: Clear to Auscultation Bilateral, NORMAL BREATHING PATTERN - Cardiovascular Exam Cardiovascular Exam: REGULAR RHYTHM - GI/Abdominal Exam GI & Abdominal Exam: Soft Results - Vital Signs Recent Vital Signs: Last Vital Signs Temp 97.3 F L 01/12/17 21:17 Pulse 72 01/12/17 21:17 Resp 20 01/12/17 21:17 BP 151/69 H 01/12/17 21:17 Pulse Ox 97 01/12/17 21:17 Assessment & Plan - Assessment and Plan (Free Text) Assessment: - Assessment and Plan (Free Text) Assessment: COPD HYPERTENSION DECONDITIONING Plan: WILL RESUME AMLODIPINE BUT AT ONLY 2.5 MGS DAILY AND OBSERVE BP CONTINUE BRONCHODILATORS AND PREDNISONE Plan: As above - Date & Time Date: 01/11/17 Time: 17:30
[2017-01-13] MEDS: Albuterol-Ipratrop 3 mg / 0.5 (3 ml) UD INH SCH ×4 (01:06→19:25)
[2017-01-13] MEDS: Bacitracin 500 Units/gm Oint Foilpak UD TOP SCH ×2 (09:08→17:30)
[2017-01-13] MEDS: Ergocalciferol 50,000 Intl Units Cap PO SCH (09:18)
[2017-01-13] MEDS: Multivitamin With Minerals Tab PO SCH (09:24)
[2017-01-13 13:05] LABS: MEAN CELL VOLUME 93.7 fl (81.0-99.0); MEAN CORPUSCULAR HEMOGLOBIN 31.7 pg (27.0-31.0); MEAN CORPUSCULAR HGB CONC 33.9 g/dL (33.0-37.0); RBC 2.84 Mil/uL (3.80-5.20); RED CELL DISTRIBUTION WIDTH 13.9 % (11.5-14.5)
[2017-01-13 13:31] LABS: BLOOD UREA NITROGEN 17 mg/dl (7-17); CALCIUM 9.4 mg/dL (8.4-10.2); GFR AFRICAN-AMERICAN > 60; GFR NON-AFRICAN AMERICAN 55
--- NOTE | 2017-01-13 14:11 | CP.PCM.PN ---
Subjective - Date & Time of Evaluation Date of Evaluation: 01/13/17 Time of Evaluation: 14:00 - Subjective Subjective: NO CHEST PAIN Objective - Vital Signs/Intake and Output Vital Signs (last 24 hours): Temp Pulse Resp BP Pulse Ox 98.2 F 60 20 150/72 95 01/13/17 08:39 01/13/17 09:19 01/13/17 08:39 01/13/17 09:19 01/13/17 08:39 - Medications Medications: Current Medications Albuterol/Ipratropium (Duoneb 3 Mg/0.5 Mg (3 Ml) Ud) 3 ml INH RQ6 PRN PRN Reason: Shortness of Breath Albuterol/Ipratropium (Duoneb 3 Mg/0.5 Mg (3 Ml) Ud) 3 ml INH RQ6 [facility] Last Admin: 01/13/17 13:55 Dose: 3 ml Alprazolam (Xanax) 0.5 mg PO Q12 [facility] Last Admin: 01/13/17 09:26 Dose: 0.5 mg Amlodipine Besylate (Norvasc) 2.5 mg PO DAILY [facility] Last Admin: 01/13/17 09:19 Dose: 2.5 mg Bacitracin (Bacitracin) 1 ea TOP BID [facility] Last Admin: 01/13/17 09:08 Dose: 1 ea Clopidogrel Bisulfate (Plavix) 75 mg PO DAILY [facility] Last Admin: 01/13/17 09:20 Dose: 75 mg Cyanocobalamin (Vitamin B12 1000 Mcg/Ml Inj) 1,000 mcg IM Q14D [facility] Last Admin: 01/10/17 21:06 Dose: Not Given Ergocalciferol (Drisdol 50,000 Intl Units Cap) 1 cap PO MWF [facility] Last Admin: 01/13/17 09:18 Dose: 1 cap Fluticasone Propionate (Flonase) 2 spr PRATIBHA HS PRN PRN Reason: Allergy symptoms Last Admin: 01/11/17 21:54 Dose: 2 spr Hydromorphone HCl (Dilaudid) 2 mg PO Q4 PRN PRN Reason: Pain, severe (8-10) Last Admin: 01/13/17 12:12 Dose: 2 mg Loratadine (Claritin) 10 mg PO QPM [facility] Last Admin: 01/12/17 17:11 Dose: 10 mg Multivitamins/Minerals (Therapeutic-M Tab) 1 tab PO DAILY [facility] Last Admin: 01/13/17 09:24 Dose: 1 tab Nicotine (Nicoderm Cq) 1 patch TD DAILY [facility] Last Admin: 01/13/17 09:18 Dose: 1 patch Octreotide Acetate (Sandostatin) 100 mcg SC Q12 [facility] Last Admin: 01/13/17 09:23 Dose: 100 mcg Prednisone (Prednisone Tab) 10 mg PO BID [facility] Stop: 01/13/17 17:01 Last Admin: 01/13/17 09:20 Dose: 10 mg Prednisone (Prednisone Tab) 10 mg PO DAILY [facility] Stop: 01/16/17 09:01 Sodium Bicarbonate (Sodium Bicarbonate Tab) 325 mg PO BID [facility] Last Admin: 01/13/17 09:24 Dose: 325 mg Trazodone HCl (Desyrel) 100 mg PO [facility] Last Admin: 01/12/17 21:57 Dose: 100 mg Zolpidem Tartrate (Ambien) 5 mg PO [facility] Last Admin: 01/12/17 21:57 Dose: 5 mg - Labs Labs: 01/13/17 12:30 01/13/17 12:30 - Respiratory Exam Respiratory Exam: Decreased Breath Sounds, Clear to Ausculation Bilateral - Cardiovascular Exam Cardiovascular Exam: REGULAR RHYTHM, +S1, +S2 - Extremities Exam Extremities Exam: Normal Inspection Assessment and Plan - Assessment and Plan (Free Text) Assessment: HYPERTENSION COPD [place] AND VERTIGO Plan: CONTINUE AMLODIPINE, CLOPIDOGREL AND BRONCHODILATORS
[2017-01-14] MEDS: Albuterol-Ipratrop 3 mg / 0.5 (3 ml) UD INH SCH ×4 (01:05→19:12)
[2017-01-14] MEDS: Multivitamin With Minerals Tab PO SCH (08:57)
[2017-01-14] MEDS: Bacitracin 500 Units/gm Oint Foilpak UD TOP SCH ×2 (08:57→16:47)
--- NOTE | 2017-01-14 11:34 | CP.PCM.PN ---
Subjective - Date & Time of Evaluation Date of Evaluation: 01/14/17 Time of Evaluation: 10:00 - Subjective Subjective: NO CHEST PAIN OR SOB FEELS BETTER TODAY, MORE ALERT, LESS DIZZY Objective - Vital Signs/Intake and Output Vital Signs (last 24 hours): Temp Pulse Resp BP Pulse Ox 98.1 F 68 20 131/61 100 01/13/17 19:37 01/14/17 08:54 01/13/17 19:37 01/14/17 08:54 01/13/17 19:37 - Medications Medications: Current Medications Albuterol/Ipratropium (Duoneb 3 Mg/0.5 Mg (3 Ml) Ud) 3 ml INH RQ6 PRN PRN Reason: Shortness of Breath Albuterol/Ipratropium (Duoneb 3 Mg/0.5 Mg (3 Ml) Ud) 3 ml INH RQ6 [facility] Last Admin: 01/14/17 07:30 Dose: 3 ml Alprazolam (Xanax) 0.5 mg PO Q12 [facility] Last Admin: 01/14/17 09:02 Dose: 0.5 mg Amlodipine Besylate (Norvasc) 2.5 mg PO DAILY [facility] Last Admin: 01/14/17 08:54 Dose: 2.5 mg Bacitracin (Bacitracin) 1 ea TOP BID [facility] Last Admin: 01/14/17 08:57 Dose: 1 ea Clopidogrel Bisulfate (Plavix) 75 mg PO DAILY [facility] Last Admin: 01/14/17 08:57 Dose: 75 mg Cyanocobalamin (Vitamin B12 1000 Mcg/Ml Inj) 1,000 mcg IM Q14D [facility] Last Admin: 01/10/17 21:06 Dose: Not Given Ergocalciferol (Drisdol 50,000 Intl Units Cap) 1 cap PO MWF [facility] Last Admin: 01/13/17 09:18 Dose: 1 cap Fluticasone Propionate (Flonase) 2 spr PRATIBHA HS PRN PRN Reason: Allergy symptoms Last Admin: 01/11/17 21:54 Dose: 2 spr Hydromorphone HCl (Dilaudid) 2 mg PO Q4 PRN PRN Reason: Pain, severe (8-10) Last Admin: 01/14/17 02:58 Dose: 2 mg Loratadine (Claritin) 10 mg PO QPM [facility] Last Admin: 01/13/17 17:30 Dose: 10 mg Multivitamins/Minerals (Therapeutic-M Tab) 1 tab PO DAILY [facility] Last Admin: 01/14/17 08:57 Dose: 1 tab Nicotine (Nicoderm Cq) 1 patch TD DAILY [facility] Last Admin: 01/14/17 08:58 Dose: 1 patch Octreotide Acetate (Sandostatin) 100 mcg SC Q12 [facility] Last Admin: 01/14/17 09:00 Dose: 100 mcg Prednisone (Prednisone Tab) 10 mg PO DAILY [facility] Stop: 01/16/17 09:01 Last Admin: 01/14/17 08:57 Dose: 10 mg Sodium Bicarbonate (Sodium Bicarbonate Tab) 325 mg PO BID [facility] Last Admin: 01/14/17 08:56 Dose: 325 mg Trazodone HCl (Desyrel) 100 mg PO HS [facility] Last Admin: 01/13/17 22:15 Dose: 100 mg Zolpidem Tartrate (Ambien) 5 mg PO HS [facility] Last Admin: 01/13/17 22:15 Dose: 5 mg - Labs Labs: 01/13/17 12:30 01/13/17 12:30 - Respiratory Exam Respiratory Exam: Clear to Ausculation Bilateral - Cardiovascular Exam Cardiovascular Exam: REGULAR RHYTHM, +S1, +S2 - Extremities Exam Extremities Exam: Normal Inspection Assessment and Plan - Assessment and Plan (Free Text) Assessment: HYPERTENSION COPD Plan: CONTINUE CLOPIDOGREL, AMLODIPINE AND BRONCHODILATORS
--- NOTE | 2017-01-14 13:12 | CP.PCM.PN ---
Subjective - Date & Time of Evaluation Date of Evaluation: 01/13/17 Time of Evaluation: 12:00 - Subjective Subjective: Blood pressure is not well controlled. Still feels dizzy on changing position. Objective - Vital Signs/Intake and Output Vital Signs (last 24 hours): Temp Pulse Resp BP Pulse Ox 98.1 F 76 20 193/82 H 100 01/13/17 19:37 01/14/17 12:35 01/13/17 19:37 01/14/17 12:35 01/13/17 19:37 - Medications Medications: Current Medications Albuterol/Ipratropium (Duoneb 3 Mg/0.5 Mg (3 Ml) Ud) 3 ml INH RQ6 PRN PRN Reason: Shortness of Breath Albuterol/Ipratropium (Duoneb 3 Mg/0.5 Mg (3 Ml) Ud) 3 ml INH RQ6 [facility] Last Admin: 01/14/17 07:30 Dose: 3 ml Alprazolam (Xanax) 0.5 mg PO Q12 [facility] Last Admin: 01/14/17 09:02 Dose: 0.5 mg Amlodipine Besylate (Norvasc) 2.5 mg PO DAILY [facility] Last Admin: 01/14/17 08:54 Dose: 2.5 mg Bacitracin (Bacitracin) 1 ea TOP BID [facility] Last Admin: 01/14/17 08:57 Dose: 1 ea Clopidogrel Bisulfate (Plavix) 75 mg PO DAILY [facility] Last Admin: 01/14/17 08:57 Dose: 75 mg Cyanocobalamin (Vitamin B12 1000 Mcg/Ml Inj) 1,000 mcg IM Q14D [facility] Last Admin: 01/10/17 21:06 Dose: Not Given Ergocalciferol (Drisdol 50,000 Intl Units Cap) 1 cap PO MWF [facility] Last Admin: 01/13/17 09:18 Dose: 1 cap Fluticasone Propionate (Flonase) 2 spr PRATIBHA HS PRN PRN Reason: Allergy symptoms Last Admin: 01/11/17 21:54 Dose: 2 spr Hydromorphone HCl (Dilaudid) 2 mg PO Q4 PRN PRN Reason: Pain, severe (8-10) Last Admin: 01/14/17 02:58 Dose: 2 mg Loratadine (Claritin) 10 mg PO QPM [facility] Last Admin: 01/13/17 17:30 Dose: 10 mg Multivitamins/Minerals (Therapeutic-M Tab) 1 tab PO DAILY [facility] Last Admin: 01/14/17 08:57 Dose: 1 tab Nicotine (Nicoderm Cq) 1 patch TD DAILY [facility] Last Admin: 01/14/17 08:58 Dose: 1 patch Octreotide Acetate (Sandostatin) 100 mcg SC Q12 [facility] Last Admin: 01/14/17 09:00 Dose: 100 mcg Prednisone (Prednisone Tab) 10 mg PO DAILY [facility] Stop: 01/16/17 09:01 Last Admin: 01/14/17 08:57 Dose: 10 mg Sodium Bicarbonate (Sodium Bicarbonate Tab) 325 mg PO BID [facility] Last Admin: 01/14/17 08:56 Dose: 325 mg Trazodone HCl (Desyrel) 100 mg PO HS [facility] Last Admin: 01/13/17 22:15 Dose: 100 mg Zolpidem Tartrate (Ambien) 5 mg PO HS [facility] Last Admin: 01/13/17 22:15 Dose: 5 mg - Labs Labs: 01/13/17 12:30 01/13/17 12:30 Assessment and Plan - Assessment and Plan (Free Text) Assessment: Uncontrlled HTN Exacerbation of COPD Positional vertigo Plan: CORRECT HER ORTHOSTATIC BLOOD PRESSURE CHANGES CORRECT ELECTROLYTES HYDRATION PLAVIX FOR STROKE PROPHYLAXIS FALL PRECAUTION PT CARDIOLOGY TO FOLLOW REASSURANCE AMBIEN , TRAZADONE CAN COME OFF AND LIMITED USE OF NARCOTICS
[2017-01-14] MEDS: Metoprolol Succinate 25 mg XL Tab PO SCH (18:09)
[2017-01-14] MEDS ORDERED: Bacitracin 500 Units/gm Oint Foilpak UD TOP PRN (20:49)
[2017-01-15] MEDS: Albuterol-Ipratrop 3 mg / 0.5 (3 ml) UD INH SCH ×4 (01:22→20:01)
[2017-01-15] MEDS: Ergocalciferol 50,000 Intl Units Cap PO SCH (08:22)
[2017-01-15] MEDS: Multivitamin With Minerals Tab PO SCH (08:24)
[2017-01-15] MEDS: Metoprolol Succinate 25 mg XL Tab PO SCH (08:25)
[2017-01-15 12:32] LABS: HEMOGLOBIN 13.2 g/dL (12.0-16.0); MEAN CELL VOLUME 94.4 fl (81.0-99.0); MEAN CORPUSCULAR HEMOGLOBIN 31.4 pg (27.0-31.0); MEAN CORPUSCULAR HGB CONC 33.3 g/dL (33.0-37.0); RBC 4.2 Mil/uL (3.80-5.20); RED CELL DISTRIBUTION WIDTH 13.9 % (11.5-14.5); WHITE BLOOD COUNT 16.3 K/uL (4.8-10.8)
[2017-01-15 12:56] LABS: ALB/GLOB RATIO 1.3 (1.0-2.1); ALBUMIN 3.8 g/dL (3.5-5.0); ALT/SGPT 37 U/L (9-52); AST/SGOT 27 U/L (14-36); BLOOD UREA NITROGEN 19 mg/dl (7-17); CALCIUM 9.6 mg/dL (8.4-10.2); GFR AFRICAN-AMERICAN > 60; GFR NON-AFRICAN AMERICAN 55; MAGNESIUM 1.5 MG/DL (1.6-2.3)
[2017-01-15 12:58] LABS: IRON 106 ug/dL (37-170)
[2017-01-15 13:07] LABS: % IRON SATURATION 36 % (20-55); TOTAL IRON BINDING CAPACITY 296 ug/dL (250-450)
--- NOTE | 2017-01-15 14:10 | CP.PCM.PN ---
Subjective - Date & Time of Evaluation Date of Evaluation: 01/15/17 Time of Evaluation: 11:00 - Subjective Subjective: NO CHEST PAIN FEELS BETTER Objective - Vital Signs/Intake and Output Vital Signs (last 24 hours): Temp Pulse Resp BP Pulse Ox 98.2 F 78 20 134/69 95 01/14/17 19:52 01/15/17 09:31 01/14/17 19:52 01/15/17 09:31 01/15/17 09:31 - Medications Medications: Current Medications Albuterol/Ipratropium (Duoneb 3 Mg/0.5 Mg (3 Ml) Ud) 3 ml INH RQ6 PRN PRN Reason: Shortness of Breath Albuterol/Ipratropium (Duoneb 3 Mg/0.5 Mg (3 Ml) Ud) 3 ml INH RQ6 [facility] Last Admin: 01/15/17 13:08 Dose: 3 ml Alprazolam (Xanax) 0.5 mg PO Q12 PRN PRN Reason: Anxiety Last Admin: 01/14/17 22:31 Dose: 0.5 mg Amlodipine Besylate (Norvasc) 2.5 mg PO DAILY [facility] Last Admin: 01/15/17 08:23 Dose: 2.5 mg Bacitracin (Bacitracin) 1 ea TOP BID PRN PRN Reason: Rash Clopidogrel Bisulfate (Plavix) 75 mg PO DAILY [facility] Last Admin: 01/15/17 08:23 Dose: 75 mg Cyanocobalamin (Vitamin B12 1000 Mcg/Ml Inj) 1,000 mcg IM Q14D [facility] Last Admin: 01/10/17 21:06 Dose: Not Given Ergocalciferol (Drisdol 50,000 Intl Units Cap) 1 cap PO MWF [facility] Last Admin: 01/15/17 08:22 Dose: 1 cap Fluticasone Propionate (Flonase) 2 spr PRATIBHA HS PRN PRN Reason: Allergy symptoms Last Admin: 01/11/17 21:54 Dose: 2 spr Hydromorphone HCl (Dilaudid) 2 mg PO Q8 PRN PRN Reason: Pain, severe (8-10) Last Admin: 01/14/17 16:50 Dose: 2 mg Loratadine (Claritin) 10 mg PO QPM [facility] Last Admin: 01/14/17 18:10 Dose: 10 mg Metoprolol Succinate (Toprol Xl) 25 mg PO DAILY [facility] Last Admin: 01/15/17 08:25 Dose: 25 mg Multivitamins/Minerals (Therapeutic-M Tab) 1 tab PO DAILY [facility] Last Admin: 01/15/17 08:24 Dose: 1 tab Nicotine (Nicoderm Cq) 1 patch TD DAILY [facility] Last Admin: 01/15/17 08:22 Dose: 1 patch Octreotide Acetate (Sandostatin) 100 mcg SC Q12 [facility] Last Admin: 01/15/17 08:42 Dose: 100 mcg Prednisone (Prednisone Tab) 10 mg PO DAILY [facility] Stop: 01/16/17 09:01 Last Admin: 01/15/17 08:23 Dose: 10 mg Sodium Bicarbonate (Sodium Bicarbonate Tab) 325 mg PO BID [facility] Last Admin: 01/15/17 08:24 Dose: 325 mg Trazodone HCl (Desyrel) 100 mg PO HS [facility] Last Admin: 01/14/17 21:49 Dose: 100 mg - Labs Labs: 01/15/17 12:26 01/15/17 12:26 - Respiratory Exam Respiratory Exam: Clear to Ausculation Bilateral - Cardiovascular Exam Cardiovascular Exam: REGULAR RHYTHM, +S1, +S2 - Extremities Exam Extremities Exam: Normal Inspection Assessment and Plan - Assessment and Plan (Free Text) Assessment: COPD HYPERTENSION DECONDITIONING Plan: CONTINUE BRONCHODILATORS AND CLOPIDOGREL AMLODIPINE STOPPED AND METOPROLOL STARTED CONTINUE PHYSICAL THERAPY
--- NOTE | 2017-01-15 18:54 | CP.PCM.PN ---
Subjective - Date & Time of Evaluation Date of Evaluation: 01/15/17 Time of Evaluation: 18:53 - Subjective Subjective: SHE IS MORE AWAKE DIZZINESS IS BETTER AND TOLERATING PLAVIX STILL HAVING HEADACHE ON AND OFF BP IS STABLE TODAY ENCOURAGE FLUIDS AVOID NARCOTICS Objective - Vital Signs/Intake and Output Vital Signs (last 24 hours): Temp Pulse Resp BP Pulse Ox 98.1 F 65 20 135/64 95 01/15/17 17:08 01/15/17 17:08 01/15/17 17:08 01/15/17 17:08 01/15/17 17:08 - Medications Medications: Current Medications Albuterol/Ipratropium (Duoneb 3 Mg/0.5 Mg (3 Ml) Ud) 3 ml INH RQ6 PRN PRN Reason: Shortness of Breath Albuterol/Ipratropium (Duoneb 3 Mg/0.5 Mg (3 Ml) Ud) 3 ml INH RQ6 [facility] Last Admin: 01/15/17 13:08 Dose: 3 ml Alprazolam (Xanax) 0.5 mg PO Q12 PRN PRN Reason: Anxiety Last Admin: 01/14/17 22:31 Dose: 0.5 mg Amlodipine Besylate (Norvasc) 2.5 mg PO DAILY [facility] Last Admin: 01/15/17 08:23 Dose: 2.5 mg Bacitracin (Bacitracin) 1 ea TOP BID PRN PRN Reason: Rash Clopidogrel Bisulfate (Plavix) 75 mg PO DAILY [facility] Last Admin: 01/15/17 08:23 Dose: 75 mg Cyanocobalamin (Vitamin B12 1000 Mcg/Ml Inj) 1,000 mcg IM Q14D [facility] Last Admin: 01/10/17 21:06 Dose: Not Given Ergocalciferol (Drisdol 50,000 Intl Units Cap) 1 cap PO MWF [facility] Last Admin: 01/15/17 08:22 Dose: 1 cap Fluticasone Propionate (Flonase) 2 spr PRATIBHA HS PRN PRN Reason: Allergy symptoms Last Admin: 01/11/17 21:54 Dose: 2 spr Hydromorphone HCl (Dilaudid) 2 mg PO Q8 PRN PRN Reason: Pain, severe (8-10) Last Admin: 01/15/17 16:38 Dose: 2 mg Loratadine (Claritin) 10 mg PO QPM [facility] Last Admin: 01/15/17 17:33 Dose: 10 mg Metoprolol Succinate (Toprol Xl) 25 mg PO DAILY [facility] Last Admin: 01/15/17 08:25 Dose: 25 mg Multivitamins/Minerals (Therapeutic-M Tab) 1 tab PO DAILY [facility] Last Admin: 01/15/17 08:24 Dose: 1 tab Nicotine (Nicoderm Cq) 1 patch TD DAILY [facility] Last Admin: 01/15/17 08:22 Dose: 1 patch Octreotide Acetate (Sandostatin) 100 mcg SC Q12 [facility] Last Admin: 01/15/17 08:42 Dose: 100 mcg Prednisone (Prednisone Tab) 10 mg PO DAILY [facility] Stop: 01/16/17 09:01 Last Admin: 01/15/17 08:23 Dose: 10 mg Sodium Bicarbonate (Sodium Bicarbonate Tab) 325 mg PO BID [facility] Last Admin: 01/15/17 17:33 Dose: 325 mg Trazodone HCl (Desyrel) 100 mg PO HS [facility] Last Admin: 01/14/17 21:49 Dose: 100 mg - Labs Labs: 01/15/17 12:26 01/15/17 12:26 Assessment and Plan (1) Steal syndrome, subclavian Status: Acute
[2017-01-15] MEDS ORDERED: Magnesium Sulfate 2 gm/50 ml 2 GM/50 ML BAG IVPB ONE (23:15)
--- NOTE | 2017-01-15 23:21 | CP.PCM.PN ---
Subjective - Date & Time of Evaluation Date of Evaluation: 01/15/17 Time of Evaluation: 12:00 - Subjective Subjective: Overall feels better. Objective - Vital Signs/Intake and Output Vital Signs (last 24 hours): Temp Pulse Resp BP Pulse Ox 98.1 F 65 20 135/64 95 01/15/17 17:08 01/15/17 17:08 01/15/17 17:08 01/15/17 17:08 01/15/17 17:08 - Medications Medications: Current Medications Albuterol/Ipratropium (Duoneb 3 Mg/0.5 Mg (3 Ml) Ud) 3 ml INH RQ6 PRN PRN Reason: Shortness of Breath Albuterol/Ipratropium (Duoneb 3 Mg/0.5 Mg (3 Ml) Ud) 3 ml INH RQ6 [facility] Last Admin: 01/15/17 20:01 Dose: 3 ml Alprazolam (Xanax) 0.5 mg PO Q12 PRN PRN Reason: Anxiety Last Admin: 01/14/17 22:31 Dose: 0.5 mg Amlodipine Besylate (Norvasc) 2.5 mg PO DAILY [facility] Last Admin: 01/15/17 08:23 Dose: 2.5 mg Bacitracin (Bacitracin) 1 ea TOP BID PRN PRN Reason: Rash Clopidogrel Bisulfate (Plavix) 75 mg PO DAILY [facility] Last Admin: 01/15/17 08:23 Dose: 75 mg Cyanocobalamin (Vitamin B12 1000 Mcg/Ml Inj) 1,000 mcg IM Q14D [facility] Last Admin: 01/10/17 21:06 Dose: Not Given Ergocalciferol (Drisdol 50,000 Intl Units Cap) 1 cap PO MWF [facility] Last Admin: 01/15/17 08:22 Dose: 1 cap Fluticasone Propionate (Flonase) 2 spr PRATIBHA HS PRN PRN Reason: Allergy symptoms Last Admin: 01/11/17 21:54 Dose: 2 spr Hydromorphone HCl (Dilaudid) 2 mg PO Q8 PRN PRN Reason: Pain, severe (8-10) Last Admin: 01/15/17 16:38 Dose: 2 mg Magnesium Sulfate (Magnesium Sulfate 2 Gm/50 Ml Water) 2 gm in 50 mls @ 50 mls/ hr IVPB ONCE ONE PRN Reason: 2 GM/HR Stop: 01/16/17 00:14 Loratadine (Claritin) 10 mg PO QPM [facility] Last Admin: 01/15/17 17:33 Dose: 10 mg Metoprolol Succinate (Toprol Xl) 25 mg PO DAILY [facility] Last Admin: 01/15/17 08:25 Dose: 25 mg Multivitamins/Minerals (Therapeutic-M Tab) 1 tab PO DAILY [facility] Last Admin: 01/15/17 08:24 Dose: 1 tab Nicotine (Nicoderm Cq) 1 patch TD DAILY [facility] Last Admin: 01/15/17 08:22 Dose: 1 patch Octreotide Acetate (Sandostatin) 100 mcg SC Q12 [facility] Last Admin: 01/15/17 21:47 Dose: 100 mcg Prednisone (Prednisone Tab) 10 mg PO DAILY [facility] Stop: 01/16/17 09:01 Last Admin: 01/15/17 08:23 Dose: 10 mg Sodium Bicarbonate (Sodium Bicarbonate Tab) 325 mg PO BID [facility] Last Admin: 01/15/17 17:33 Dose: 325 mg Trazodone HCl (Desyrel) 100 mg PO HS [facility] Last Admin: 01/15/17 21:47 Dose: 100 mg - Labs Labs: 01/15/17 12:26 01/15/17 12:26 - Head Exam Head Exam: ATRAUMATIC - Eye Exam Eye Exam: EOMI, PERRL Assessment and Plan - Assessment and Plan (Free Text) Assessment: Uncontrlled HTN Exacerbation of COPD Positional vertigo hyponatremia hypomagnesemia Plan: Nephrology consult Replace magnesium. Continue PT and OT
[2017-01-16] MEDS: Albuterol-Ipratrop 3 mg / 0.5 (3 ml) UD INH SCH ×4 (01:17→19:42)
[2017-01-16] MEDS: Multivitamin With Minerals Tab PO SCH (09:44)
[2017-01-16] MEDS: Metoprolol Succinate 25 mg XL Tab PO SCH ×2 (09:45→16:50)
--- NOTE | 2017-01-16 11:25 | CP.PCM.PN ---
Subjective - Date & Time of Evaluation Date of Evaluation: 01/16/17 Time of Evaluation: 10:30 - Subjective Subjective: FEELS BETTER AND STRONGER OVERALL NO CHEST PAIN BREATHING BETTER Objective - Vital Signs/Intake and Output Vital Signs (last 24 hours): Temp Pulse Resp BP Pulse Ox 97.2 F L 77 20 129/59 L 99 01/16/17 08:59 01/16/17 09:47 01/16/17 08:59 01/16/17 09:47 01/16/17 08:59 - Medications Medications: Current Medications Albuterol/Ipratropium (Duoneb 3 Mg/0.5 Mg (3 Ml) Ud) 3 ml INH RQ6 PRN PRN Reason: Shortness of Breath Albuterol/Ipratropium (Duoneb 3 Mg/0.5 Mg (3 Ml) Ud) 3 ml INH RQ6 [facility] Last Admin: 01/16/17 07:30 Dose: 3 ml Alprazolam (Xanax) 0.5 mg PO Q12 PRN PRN Reason: Anxiety Last Admin: 01/15/17 23:30 Dose: 0.5 mg Amlodipine Besylate (Norvasc) 2.5 mg PO DAILY [facility] Last Admin: 01/16/17 09:47 Dose: 2.5 mg Bacitracin (Bacitracin) 1 ea TOP BID PRN PRN Reason: Rash Clopidogrel Bisulfate (Plavix) 75 mg PO DAILY [facility] Last Admin: 01/16/17 09:43 Dose: 75 mg Cyanocobalamin (Vitamin B12 1000 Mcg/Ml Inj) 1,000 mcg IM Q14D [facility] Last Admin: 01/10/17 21:06 Dose: Not Given Ergocalciferol (Drisdol 50,000 Intl Units Cap) 1 cap PO MWF [facility] Last Admin: 01/15/17 08:22 Dose: 1 cap Fluticasone Propionate (Flonase) 2 spr PRATIBHA HS PRN PRN Reason: Allergy symptoms Last Admin: 01/11/17 21:54 Dose: 2 spr Hydromorphone HCl (Dilaudid) 2 mg PO Q8 PRN PRN Reason: Pain, severe (8-10) Last Admin: 01/16/17 01:03 Dose: 2 mg Loratadine (Claritin) 10 mg PO QPM [facility] Last Admin: 01/15/17 17:33 Dose: 10 mg Metoprolol Succinate (Toprol Xl) 25 mg PO DAILY [facility] Last Admin: 01/16/17 09:45 Dose: Not Given Multivitamins/Minerals (Therapeutic-M Tab) 1 tab PO DAILY [facility] Last Admin: 01/16/17 09:44 Dose: 1 tab Nicotine (Nicoderm Cq) 1 patch TD DAILY [facility] Last Admin: 01/16/17 09:42 Dose: 1 patch Octreotide Acetate (Sandostatin) 100 mcg SC Q12 [facility] Last Admin: 01/16/17 09:48 Dose: 100 mcg Sodium Bicarbonate (Sodium Bicarbonate Tab) 325 mg PO BID [facility] Last Admin: 01/16/17 09:43 Dose: 325 mg Trazodone HCl (Desyrel) 100 mg PO HS [facility] Last Admin: 01/15/17 21:47 Dose: 100 mg - Labs Labs: 01/15/17 12:26 01/15/17 12:26 - Respiratory Exam Respiratory Exam: Clear to Ausculation Bilateral - Cardiovascular Exam Cardiovascular Exam: REGULAR RHYTHM, +S1, +S2 - Extremities Exam Extremities Exam: Normal Inspection Assessment and Plan - Assessment and Plan (Free Text) Assessment: HYPERTENSION COPD DECONDITIONING Plan: CONTINUE BRONCHODILATORS, METOPROLOL, AMLODIPINE AND CLOPIDOGREL CONTINUE SUBACUTE REHAB AND OT
[2017-01-16 12:08] LABS: MEAN CELL VOLUME 93.7 fl (81.0-99.0); MEAN CORPUSCULAR HGB CONC 33.1 g/dL (33.0-37.0); RBC 4.18 Mil/uL (3.80-5.20); WHITE BLOOD COUNT 13.3 K/uL (4.8-10.8)
[2017-01-16] MEDS: Cholestyramine 4 gm/Pkt UD PO SCH ×2 (12:43→21:46)
[2017-01-16 12:57] LABS: ALB/GLOB RATIO 1.3 (1.0-2.1); ALBUMIN 3.7 g/dL (3.5-5.0); ALT/SGPT 36 U/L (9-52); AST/SGOT 28 U/L (14-36); BLOOD UREA NITROGEN 18 mg/dl (7-17); CALCIUM 9.2 mg/dL (8.4-10.2); GFR AFRICAN-AMERICAN > 60; GFR NON-AFRICAN AMERICAN > 60; MAGNESIUM 1.7 MG/DL (1.6-2.3)
[2017-01-16] MEDS ORDERED: Sodium Chloride 0.9% 1,000 ML IV SCH (13:00)
[2017-01-16 13:53] LABS: URINE BACTERIA RARE (<OCC); URINE BILIRUBIN NEGATIVE (NEGATIVE); URINE BLOOD NEGATIVE (NEGATIVE); URINE CLARITY CLEAR (Clear); URINE COLOR YELLOW (YELLOW); URINE GLUCOSE (UA) NEG (Normal); URINE LEUKOCYTE ESTERASE NEG Leu/uL (Negative); URINE NITRATE NEGATIVE (NEGATIVE); URINE PROTEIN NEGATIVE (NEGATIVE); URINE UROBILINOGEN 0.2-1.0 mg/dL (0.2-1.0)
--- NOTE | 2017-01-16 20:21 | CP.PCM.CON ---
History of Present Illness - History of Present Illness History of Present Illness: pt seen and examined by, full consult is dictated #[id number] 1. hyponatrimeia, r/o siadh, r/o psychogenic polydepsia 2. hypertension 3. anxiety 4. copd check urine lytes, osm serum tsh, cortisol, uric acid level, bmp stat and im, advised to hold ivf until bmp is results are avilable Past Patient History - Past Medical History & Family History Past Medical History?: Yes - Past Social History Smoking Status: Current Some Days Smoker - CARDIAC Hx Cardiac Disorders: Yes Hx Hypertension: Yes - PULMONARY Hx Chronic Obstructive Pulmonary Disease (COPD): Yes - NEUROLOGICAL Hx Neurological Disorder: Yes Other/Comment: FIBROMYALGIA - HEENT Hx HEENT Problems: No - RENAL Hx Chronic Kidney Disease: No - ENDOCRINE/METABOLIC Hx Endocrine Disorders: No - HEMATOLOGICAL/ONCOLOGICAL Hx Blood Disorders: No Hx AIDS: No Hx Human Immunodeficiency Virus (HIV): No Other/Comment: cytomegalovirus - INTEGUMENTARY Hx Dermatological Problems: No - MUSCULOSKELETAL/RHEUMATOLOGICAL Hx Musculoskeletal Disorders: No Hx Falls: No - GASTROINTESTINAL Hx Gastrointestinal Disorders: Yes Hx Ileostomy: Yes - GENITOURINARY/GYNECOLOGICAL Hx Genitourinary Disorders: No - PSYCHIATRIC Hx Psychophysiologic Disorder: Yes Hx Anxiety: Yes Hx Substance Use: No - SURGICAL HISTORY Hx Surgeries: Yes Hx Cholecystectomy: Yes Hx Herniorrhaphy: Yes Hx Hysterectomy: Yes (ovary removal) - ANESTHESIA Hx Anesthesia: Yes Hx Anesthesia Reactions: No Hx Malignant Hyperthermia: No Meds Allergies/Adverse Reactions: Allergies Allergy/AdvReac Type Severity Reaction Status Date / Time Sulfa (Sulfonamide Allergy crystallized Verified 01/10/17 16:34 Antibiotics) kidneys - Medications Medications: Current Medications Albuterol/Ipratropium (Duoneb 3 Mg/0.5 Mg (3 Ml) Ud) 3 ml INH RQ6 PRN PRN Reason: Shortness of Breath Albuterol/Ipratropium (Duoneb 3 Mg/0.5 Mg (3 Ml) Ud) 3 ml INH RQ6 [facility] Last Admin: 01/16/17 19:42 Dose: 3 ml Alprazolam (Xanax) 0.5 mg PO Q12 PRN PRN Reason: Anxiety Last Admin: 01/15/17 23:30 Dose: 0.5 mg Amlodipine Besylate (Norvasc) 2.5 mg PO DAILY [facility] Last Admin: 01/16/17 09:47 Dose: 2.5 mg Bacitracin (Bacitracin) 1 ea TOP BID PRN PRN Reason: Rash Cholestyramine Resin (Questran) 4 gm PO Q12 [facility] Last Admin: 01/16/17 12:43 Dose: 4 gm Clopidogrel Bisulfate (Plavix) 75 mg PO DAILY [facility] Last Admin: 01/16/17 09:43 Dose: 75 mg Cyanocobalamin (Vitamin B12 1000 Mcg/Ml Inj) 1,000 mcg IM Q14D [facility] Last Admin: 01/10/17 21:06 Dose: Not Given Ergocalciferol (Drisdol 50,000 Intl Units Cap) 1 cap PO MWF [facility] Last Admin: 01/15/17 08:22 Dose: 1 cap Fluticasone Propionate (Flonase) 2 spr PRATIBHA HS PRN PRN Reason: Allergy symptoms Last Admin: 01/11/17 21:54 Dose: 2 spr Hydromorphone HCl (Dilaudid) 2 mg PO Q8 PRN PRN Reason: Pain, severe (8-10) Last Admin: 01/16/17 01:03 Dose: 2 mg Sodium Chloride (Sodium Chloride 0.9%) 1,000 mls @ 70 mls/hr IV .[id number] [facility] Last Admin: 01/16/17 16:48 Dose: 70 mls/hr Loratadine (Claritin) 10 mg PO QPM PRN PRN Reason: Allergy symptoms Metoprolol Succinate (Toprol Xl) 25 mg PO DAILY [facility] Last Admin: 01/16/17 16:50 Dose: 25 mg Multivitamins/Minerals (Therapeutic-M Tab) 1 tab PO DAILY [facility] Last Admin: 01/16/17 09:44 Dose: 1 tab Nicotine (Nicoderm Cq) 1 patch TD DAILY [facility] Last Admin: 01/16/17 09:42 Dose: 1 patch Octreotide Acetate (Sandostatin) 100 mcg SC Q12 [facility] Last Admin: 01/16/17 09:48 Dose: 100 mcg Sodium Bicarbonate (Sodium Bicarbonate Tab) 325 mg PO BID [facility] Last Admin: 01/16/17 16:49 Dose: 325 mg Trazodone HCl (Desyrel) 100 mg PO HS [facility] Last Admin: 01/15/17 21:47 Dose: 100 mg Results - Vital Signs Recent Vital Signs: Last Vital Signs Temp 98.4 F 01/16/17 16:29 Pulse 66 01/16/17 16:50 Resp 20 01/16/17 16:29 BP 124/59 L 01/16/17 16:50 Pulse Ox 95 01/16/17 16:29 - Labs Result Diagrams: 01/16/17 11:50 01/16/17 21:00 Labs: Laboratory Results - last 24 hr 01/16/17 01/16/17 01/16/17 11:50 11:50 11:50 WBC 13.3 H RBC 4.18 Hgb 13.0 Hct 39.1 MCV 93.7 MCH 31.0 MCHC 33.1 RDW 14.0 Plt Count 237 Sodium 123 L Potassium 3.8 Chloride 91 L Carbon Dioxide 25 Anion Gap 11 BUN 18 H Creatinine 0.9 Est GFR ( Amer) > 60 Est GFR (Non-Af Amer) > 60 Random Glucose 116 H Calcium 9.2 Magnesium 1.7 Iron 84 Ferritin 277.0 Total Bilirubin 0.6 AST 28 ALT 36 Alkaline Phosphatase 79 Total Protein 6.4 Albumin 3.7 Globulin 2.8 Albumin/Globulin Ratio 1.3 Urine Color Urine Clarity Urine pH Ur Specific Reed Urine Protein Urine Glucose (UA) Urine Ketones Urine Blood Urine Nitrate Urine Bilirubin Urine Urobilinogen Ur Leukocyte Esterase Urine RBC (Auto) Urine Bacteria Urine Osmolality Ur Random Sodium Ur Random Potassium 01/16/17 01/16/17 13:32 13:32 WBC RBC Hgb Hct MCV MCH MCHC RDW Plt Count Sodium Potassium Chloride Carbon Dioxide Anion Gap BUN Creatinine Est GFR ( Amer) Est GFR (Non-Af Amer) Random Glucose Calcium Magnesium Iron Ferritin Total Bilirubin AST ALT Alkaline Phosphatase Total Protein Albumin Globulin Albumin/Globulin Ratio Urine Color Yellow Urine Clarity Clear Urine pH 6.0 Ur Specific Reed 1.005 Urine Protein Negative Urine Glucose (UA) Neg Urine Ketones Negative Urine Blood Negative Urine Nitrate Negative Urine Bilirubin Negative Urine Urobilinogen 0.2-1.0 Ur Leukocyte Esterase Neg Urine RBC (Auto) 1 Urine Bacteria Rare Urine Osmolality 210 L Ur Random Sodium 34 Ur Random Potassium 8.3
[2017-01-16 21:36] LABS: BLOOD UREA NITROGEN 16 mg/dl (7-17); GFR AFRICAN-AMERICAN > 60; GFR NON-AFRICAN AMERICAN > 60
[2017-01-16] MEDS: Sodium Chloride 0.9% 1,000 ML IV SCH (23:58)
[2017-01-17] MEDS: Albuterol-Ipratrop 3 mg / 0.5 (3 ml) UD INH SCH ×5 (01:56→23:56)
[2017-01-17 07:01] LABS: BLOOD UREA NITROGEN 13 mg/dl (7-17); CALCIUM 8.9 mg/dL (8.4-10.2); GFR AFRICAN-AMERICAN > 60; GFR NON-AFRICAN AMERICAN > 60; URIC ACID 4.7 mg/Dl (2.2-7.5)
[2017-01-17] MEDS: Ergocalciferol 50,000 Intl Units Cap PO SCH (08:30)
[2017-01-17] MEDS: Multivitamin With Minerals Tab PO SCH (08:30)
[2017-01-17] MEDS: Cholestyramine 4 gm/Pkt UD PO SCH ×3 (08:31→20:28)
[2017-01-17] MEDS: Sodium Chloride 0.9% 1,000 ML IV SCH (12:47)
--- NOTE | 2017-01-17 13:30 | CP.PCM.PN ---
Subjective - Date & Time of Evaluation Date of Evaluation: 01/17/17 Time of Evaluation: 12:30 - Subjective Subjective: NO CHEST PAIN BREATHING MUCH BETTER Objective - Vital Signs/Intake and Output Vital Signs (last 24 hours): Temp Pulse Resp BP Pulse Ox 97.7 F 56 L 20 121/63 92 L 01/17/17 08:28 01/17/17 08:31 01/17/17 08:28 01/17/17 08:31 01/17/17 08:28 - Medications Medications: Current Medications Albuterol/Ipratropium (Duoneb 3 Mg/0.5 Mg (3 Ml) Ud) 3 ml INH RQ6 PRN PRN Reason: Shortness of Breath Albuterol/Ipratropium (Duoneb 3 Mg/0.5 Mg (3 Ml) Ud) 3 ml INH RQ6 [facility] Last Admin: 01/17/17 07:49 Dose: 3 ml Alprazolam (Xanax) 0.5 mg PO Q12 PRN PRN Reason: Anxiety Last Admin: 01/16/17 23:56 Dose: 0.5 mg Amlodipine Besylate (Norvasc) 2.5 mg PO DAILY [facility] Last Admin: 01/17/17 08:31 Dose: 2.5 mg Bacitracin (Bacitracin) 1 ea TOP BID PRN PRN Reason: Rash Cholestyramine Resin (Questran) 4 gm PO Q12 [facility] Last Admin: 01/17/17 08:40 Dose: Not Given Clopidogrel Bisulfate (Plavix) 75 mg PO DAILY [facility] Last Admin: 01/17/17 08:31 Dose: 75 mg Cyanocobalamin (Vitamin B12 1000 Mcg/Ml Inj) 1,000 mcg IM Q14D [facility] Last Admin: 01/10/17 21:06 Dose: Not Given Ergocalciferol (Drisdol 50,000 Intl Units Cap) 1 cap PO MWF [facility] Last Admin: 01/17/17 08:30 Dose: 1 cap Fluticasone Propionate (Flonase) 2 spr PRATIBHA HS PRN PRN Reason: Allergy symptoms Last Admin: 01/11/17 21:54 Dose: 2 spr Hydromorphone HCl (Dilaudid) 2 mg PO Q8 PRN PRN Reason: Pain, severe (8-10) Last Admin: 01/17/17 01:40 Dose: 2 mg Sodium Chloride (Sodium Chloride 0.9%) 1,000 mls @ 80 mls/hr IV .[id number] [facility] Stop: 01/17/17 23:38 Last Admin: 01/17/17 12:47 Dose: 80 mls/hr Loratadine (Claritin) 10 mg PO QPM PRN PRN Reason: Allergy symptoms Metoprolol Succinate (Toprol Xl) 25 mg PO DAILY@1700 [facility] Multivitamins/Minerals (Therapeutic-M Tab) 1 tab PO DAILY [facility] Last Admin: 01/17/17 08:30 Dose: 1 tab Nicotine (Nicoderm Cq) 1 patch TD DAILY [facility] Last Admin: 01/17/17 08:32 Dose: 1 patch Octreotide Acetate (Sandostatin) 100 mcg SC Q12 [facility] Last Admin: 01/17/17 08:33 Dose: 100 mcg Sodium Bicarbonate (Sodium Bicarbonate Tab) 325 mg PO BID [facility] Last Admin: 01/17/17 08:31 Dose: 325 mg Trazodone HCl (Desyrel) 100 mg PO HS [facility] Last Admin: 01/16/17 23:57 Dose: 100 mg - Labs Labs: 01/16/17 11:50 01/17/17 05:30 - Respiratory Exam Respiratory Exam: Clear to Ausculation Bilateral - Cardiovascular Exam Cardiovascular Exam: REGULAR RHYTHM, +S1, +S2 - Extremities Exam Extremities Exam: Normal Inspection - Additional Findings Additional findings: NEPHROLOGY REPORT SEEN Assessment and Plan - Assessment and Plan (Free Text) Assessment: COPD NEPHROLOGY HYPONATREMIA DECONDITIONING Plan: CONTINUE AMLODIPINE, METOPROLOL, PLAVIX, BRONCHODILATORS CONTINUE PHYSICAL THERAPY
--- NOTE | 2017-01-17 17:20 | PN ---
DATE: 01/16/2017 SUBJECTIVE: The patient is seen today, 01/16/2017. She has low sodium of 126 and she is cooperative with physical therapy and occupational therapy. PHYSICAL EXAMINATION VITAL SIGNS: Blood pressure is 124/59, temperature 98.4, respiratory rate 20, and pulse 66. HEENT: Pupils equally reactive to light. Normal-appearing mucosa. [place] conjunctivae. Normal oropharyngeal mucosa. NECK: Supple. No JVD. No carotid bruits. No lymph nodes. No thyromegaly. CHEST AND LUNGS: Bilateral symmetrical expansion. Good air exchange. No rales. No rhonchi. CARDIOVASCULAR SYSTEM: PMI not recognized. S1, S2. No additional sounds. ABDOMEN: Normoactive bowel sounds. No tenderness. No organomegaly. No masses. The patient has ileostomy bag in place. EXTREMITIES: No cyanosis. No clubbing. No edema. NEUROLOGIC: Alert, awake, and oriented x2. No neurologic deficits could be appreciated. ASSESSMENT: 1. Hyponatremia. 2. Vertigo. 3. Hypertension. 4. Type 2 diabetes mellitus. PLAN: 1. Nephrology consult. 2. Anemia workup. 3. Continue physical therapy and occupational therapy. [facility] MD Joey
[2017-01-17] MEDS: Metoprolol Succinate 25 mg XL Tab PO SCH (17:22)
[2017-01-17 21:54] LABS: CORTISOL AM 1.2 ug/dL (4.46-22.7)
[2017-01-18] MEDS: Albuterol-Ipratrop 3 mg / 0.5 (3 ml) UD INH SCH ×4 (01:00→19:03)
[2017-01-18 05:51] LABS: GFR AFRICAN-AMERICAN > 60; GFR NON-AFRICAN AMERICAN > 60
[2017-01-18 05:52] LABS: BLOOD UREA NITROGEN 12 mg/dl (7-17); CALCIUM 8.9 mg/dL (8.4-10.2)
[2017-01-18] MEDS: Multivitamin With Minerals Tab PO SCH (08:43)
[2017-01-18] MEDS: Cholestyramine 4 gm/Pkt UD PO SCH ×2 (08:45→21:05)
--- NOTE | 2017-01-18 09:52 | CON ---
DATE:01/16/2017 The patient is located in Transitional Care Unit, room 709, bed 2. REQUESTING PHYSICIAN: Dr. Berny Cook. REASON FOR RENAL CONSULTATION: Hyponatremia and for further evaluation. HISTORY OF PRESENT ILLNESS: Mrs. Kaiser is a 67-year-old elderly female with past medical history significant for hypertension for 3-4 years in the past and for the last 10 years, the patient was not on any antihypertensive medications and was admitted to the emergency room with chief complaint of headache and found to have a very high blood pressure and also history of hernia repair complicated by multiple surgeries and requiring ileostomy in 2010 and also history COPD, active smoker, and total abdominal hysterectomy, and also cholecystectomy, was initially admitted on the ICU, subsequently transferred to transitional care unit. The patient is not in any acute distress. The patient is very anxious and complains of insomnia and renal consult was requested for evaluation of hyponatremia. The patient is also taking trazodone and Ambien. Denies any chest pain or palpitations. Denies any fever or cough. Denies any headache. No dizziness. Denies any nausea, vomiting, or diarrhea. The patient does complain of feeling thirsty. PAST MEDICAL HISTORY: Significant for insomnia and COPD and also hypertension about 10 years ago, not on any medication until this admission. PAST SURGICAL HISTORY: Status post hernia repair complications followed by ileostomy and also total abdominal hysterectomy and also cholecystectomy. ALLERGIES: ALLERGIC TO SULFA. CURRENT MEDICATIONS: Include: 1. Bacitracin topical b.i.d. 2. Claritin 10 mg p.o. at bedtime. 3. Trazodone 100 mg p.o. at bedtime. 4. Dilaudid 2 mg p.o. q.8 hours. 5. Vitamin D 50,000 units 3 times a week. 6. DuoNeb inhalers q.6 hours. 7. Flonase 2 sprays nasal at bedtime. 8. Nicotine patch daily. 9. Norvasc 2.5 mg daily. 10. Plavix 75 mg p.o. daily. 11. Questran 4 mg p.o. q.12 hours. 12. Octreotide 100 mg subcutaneously q.12 hours. 13. Sodium bicarbonate 325 mg p.o. t.i.d. 14. Multivitamin 1 tablet daily. 15. Metoprolol XL 25 mg daily. 16. B12 200 mcg every 2 weeks. 17. Xanax 0.5 mg p.o. q.12 hours. FAMILY HISTORY: Not significant. SOCIAL HISTORY: The patient is an active smoker. No alcohol abuse. No drug abuse. PERSONAL HISTORY: She is . She has one son. REVIEW OF SYSTEMS: Significant for feeling thirsty, anxious, and insomnia. All other review of systems are reviewed and are negative. PHYSICAL EXAMINATION GENERAL: Mrs. Kaiser is a 67-year-old elderly female, moderately built, moderately nourished, and not in distress. VITAL SIGNS: Blood pressure 151/66, pulse 66, respirations 20, temperature 97.7, saturation 98%, height 5 feet 2 inches, and weight 111 pounds. HEENT: Pupils are normal and reactive to light and accommodation. Conjunctivae pink. Sclerae anicteric. Tongue is dry. Trachea is midline. No thyroid enlargement. CARDIOVASCULAR: [place] of the fifth intercostal space, loudest at midclavicular line. S1 and S2 audible. No murmur. No gallop. LUNGS: Symmetrical on both sides. Bilateral breath sounds clear on auscultation. ABDOMEN: Normal in appearance. The patient has an ileostomy. The patient has a midline scar present from the previous surgeries. Abdomen is soft and there are no guarding. No rigidity. No hepatosplenomegaly. CENTRAL NERVOUS SYSTEM: The patient is alert, awake, and oriented x3. Nonfocal neurologic examination. Cranial nerves II through XII are grossly intact. Sensory motor system is within normal limits. EXTREMITIES: No cyanosis. No clubbing. No edema. LABORATORY DATA: Include as follows: As of 01/13/2017; WBC 9, hemoglobin 9, hematocrit is 26.6, and platelets 158. Sodium 128, potassium is 4, chloride 95, CO2 of 24, BUN 17, creatinine 1.0, glucose 101, and calcium 9.4. As of 01/15/2017; sodium 126, potassium 3.9, BUN and creatinine 19/1.0; total protein 6.6, and albumin is 3.8. As of 01/16/2017; WBC 13.3, hemoglobin 13, hematocrit 39.1, platelets 227; and sodium 123, potassium 3.8, chloride 91, CO2 of 25, BUN 18, creatinine 0.9, glucose 116, calcium is 9, magnesium 1.7, and iron is 84 and 106 and TIBC is 296, saturation is 26, and ferritin 277, total bilirubin 0.6, AST 28, ALT 36, alkaline phosphatase is 79, total protein is 6.4, and albumin 3.7. On urinalysis yellow clear, pH 6, specific gravity of 1.005. Urine protein negative, glucose negative, ketones negative, blood negative, bilirubin negative. Urobilinogen 0.2 to 1.0 and leukocyte esterase negative, RBC 1, bacteria rare, urine osmolality 210, urine sodium is 34, and urine potassium is 8.3. ASSESSMENT: In summary, Mrs. Kaiser is a 67-year-old elderly female with a history of chronic obstructive pulmonary disease, active smoker, was admitted with hypertension, headache, uncontrolled, not on any medication for the last 10-12 years, now renal consult requested for hyponatremia. 1. Hyponatremia. Rule out syndrome of inappropriate antidiuretic hormone secretion secondary to drugs and rule out psychogenic polydipsia also in the way specific gravity of 1.005. 2. Hypertension. 3. Anxiety. PLAN: We will check TSH level, serum uric acid level, serum cortisol level, and IV fluids are on the hold until repeat BMP was available this evening, now serum sodium is 126, we will continue normal saline, IV fluids, and repeat BMP in the a.m. If serum sodium na continue to improve, we will continue normal saline, otherwise, if there is any further decrease in serum sodium, we will stop IV fluids and then we will conside tolvaptan, also consider to hold trazodone also if needed, we will follow with you. Thank you for allowing me to participate in your patient's care. Deysi Carrillo MD [employer]
--- NOTE | 2017-01-18 14:32 | CP.PCM.PN ---
Subjective - Date & Time of Evaluation Date of Evaluation: 01/18/17 Time of Evaluation: 13:40 - Subjective Subjective: NO CHEST PAIN LESS SOB FEELS STRONGER Objective - Vital Signs/Intake and Output Vital Signs (last 24 hours): Temp Pulse Resp BP Pulse Ox 97.9 F 65 20 119/63 99 01/18/17 10:00 01/18/17 10:00 01/18/17 10:00 01/18/17 10:00 01/18/17 10:00 - Medications Medications: Current Medications Albuterol/Ipratropium (Duoneb 3 Mg/0.5 Mg (3 Ml) Ud) 3 ml INH RQ6 PRN PRN Reason: Shortness of Breath Albuterol/Ipratropium (Duoneb 3 Mg/0.5 Mg (3 Ml) Ud) 3 ml INH RQ6 [facility] Last Admin: 01/18/17 13:03 Dose: 3 ml Alprazolam (Xanax) 0.5 mg PO Q12 PRN PRN Reason: Anxiety Last Admin: 01/17/17 23:36 Dose: 0.5 mg Amlodipine Besylate (Norvasc) 2.5 mg PO DAILY [facility] Last Admin: 01/18/17 08:43 Dose: 2.5 mg Bacitracin (Bacitracin) 1 ea TOP BID PRN PRN Reason: Rash Last Admin: 01/17/17 15:06 Dose: 1 ea Cholestyramine Resin (Questran) 4 gm PO Q12 [facility] Last Admin: 01/18/17 08:45 Dose: Not Given Clopidogrel Bisulfate (Plavix) 75 mg PO DAILY [facility] Last Admin: 01/18/17 08:43 Dose: 75 mg Cyanocobalamin (Vitamin B12 1000 Mcg/Ml Inj) 1,000 mcg IM Q14D [facility] Last Admin: 01/10/17 21:06 Dose: Not Given Ergocalciferol (Drisdol 50,000 Intl Units Cap) 1 cap PO MWF [facility] Last Admin: 01/17/17 08:30 Dose: 1 cap Fluticasone Propionate (Flonase) 2 spr PRATIBHA HS PRN PRN Reason: Allergy symptoms Last Admin: 01/11/17 21:54 Dose: 2 spr Hydromorphone HCl (Dilaudid) 2 mg PO Q8 PRN PRN Reason: Pain, severe (8-10) Last Admin: 01/17/17 15:05 Dose: 2 mg Loratadine (Claritin) 10 mg PO QPM PRN PRN Reason: Allergy symptoms Metoprolol Succinate (Toprol Xl) 25 mg PO DAILY@1700 [facility] Last Admin: 01/17/17 17:22 Dose: 25 mg Multivitamins/Minerals (Therapeutic-M Tab) 1 tab PO DAILY [facility] Last Admin: 01/18/17 08:43 Dose: 1 tab Nicotine (Nicoderm Cq) 1 patch TD DAILY [facility] Last Admin: 01/18/17 08:44 Dose: 1 patch Octreotide Acetate (Sandostatin) 100 mcg SC Q12 [facility] Last Admin: 01/18/17 08:46 Dose: 100 mcg Sodium Bicarbonate (Sodium Bicarbonate Tab) 325 mg PO BID [facility] Last Admin: 01/18/17 08:42 Dose: 325 mg Trazodone HCl (Desyrel) 100 mg PO HS [facility] Last Admin: 01/17/17 23:36 Dose: 100 mg - Labs Labs: 01/16/17 11:50 01/18/17 05:20 Assessment and Plan - Assessment and Plan (Free Text) Assessment: COPD HYPERTENSION Plan: CONTINUE METOPROLOL, ATORVASTATIN, CLOPIDOGREL AND BRONCHODILATORS
--- NOTE | 2017-01-18 15:29 | CP.PCM.PN ---
Subjective - Date & Time of Evaluation Date of Evaluation: 01/18/17 Time of Evaluation: 15:28 - Subjective Subjective: pt seen and examined, by me, follow up consult is dictated #[id number] low serum cortisol and low tsh will need endo evaluation Objective - Vital Signs/Intake and Output Vital Signs (last 24 hours): Temp Pulse Resp BP Pulse Ox 97.9 F 65 20 119/63 99 01/18/17 10:00 01/18/17 10:00 01/18/17 10:00 01/18/17 10:00 01/18/17 10:00 - Medications Medications: Current Medications Albuterol/Ipratropium (Duoneb 3 Mg/0.5 Mg (3 Ml) Ud) 3 ml INH RQ6 PRN PRN Reason: Shortness of Breath Albuterol/Ipratropium (Duoneb 3 Mg/0.5 Mg (3 Ml) Ud) 3 ml INH RQ6 [facility] Last Admin: 01/18/17 13:03 Dose: 3 ml Alprazolam (Xanax) 0.5 mg PO Q12 PRN PRN Reason: Anxiety Last Admin: 01/17/17 23:36 Dose: 0.5 mg Amlodipine Besylate (Norvasc) 2.5 mg PO DAILY [facility] Last Admin: 01/18/17 08:43 Dose: 2.5 mg Bacitracin (Bacitracin) 1 ea TOP BID PRN PRN Reason: Rash Last Admin: 01/17/17 15:06 Dose: 1 ea Cholestyramine Resin (Questran) 4 gm PO Q12 [facility] Last Admin: 01/18/17 08:45 Dose: Not Given Clopidogrel Bisulfate (Plavix) 75 mg PO DAILY [facility] Last Admin: 01/18/17 08:43 Dose: 75 mg Cyanocobalamin (Vitamin B12 1000 Mcg/Ml Inj) 1,000 mcg IM Q14D [facility] Last Admin: 01/10/17 21:06 Dose: Not Given Ergocalciferol (Drisdol 50,000 Intl Units Cap) 1 cap PO MWF [facility] Last Admin: 01/17/17 08:30 Dose: 1 cap Fluticasone Propionate (Flonase) 2 spr PRATIBHA HS PRN PRN Reason: Allergy symptoms Last Admin: 01/11/17 21:54 Dose: 2 spr Hydromorphone HCl (Dilaudid) 2 mg PO Q8 PRN PRN Reason: Pain, severe (8-10) Last Admin: 01/17/17 15:05 Dose: 2 mg Sodium Chloride (Sodium Chloride 0.9%) 1,000 mls @ 80 mls/hr IV .[id number] [facility] Stop: 01/19/17 15:23 Loratadine (Claritin) 10 mg PO QPM PRN PRN Reason: Allergy symptoms Metoprolol Succinate (Toprol Xl) 25 mg PO DAILY@1700 [facility] Last Admin: 01/17/17 17:22 Dose: 25 mg Multivitamins/Minerals (Therapeutic-M Tab) 1 tab PO DAILY [facility] Last Admin: 01/18/17 08:43 Dose: 1 tab Nicotine (Nicoderm Cq) 1 patch TD DAILY [facility] Last Admin: 01/18/17 08:44 Dose: 1 patch Octreotide Acetate (Sandostatin) 100 mcg SC Q12 [facility] Last Admin: 01/18/17 08:46 Dose: 100 mcg Sodium Bicarbonate (Sodium Bicarbonate Tab) 325 mg PO BID [facility] Last Admin: 01/18/17 08:42 Dose: 325 mg Trazodone HCl (Desyrel) 100 mg PO HS [facility] Last Admin: 01/17/17 23:36 Dose: 100 mg - Labs Labs: 01/16/17 11:50 01/18/17 05:20
[2017-01-18] MEDS: Sodium Chloride 0.9% 1,000 ML IV SCH (15:52)
[2017-01-18] MEDS: Metoprolol Succinate 25 mg XL Tab PO SCH (16:48)
[2017-01-19] MEDS: Albuterol-Ipratrop 3 mg / 0.5 (3 ml) UD INH SCH ×4 (01:00→19:04)
[2017-01-19] MEDS: Sodium Chloride 0.9% 1,000 ML IV SCH (03:37)
[2017-01-19 08:45] LABS: T3 UPTAKE 0.71 T3 UPTAK (0.736-1.37); T4 7.79 ug/dl (5.5-11.0)
[2017-01-19 08:50] LABS: BLOOD UREA NITROGEN 9 mg/dl (7-17); CALCIUM 9.3 mg/dL (8.4-10.2); GFR AFRICAN-AMERICAN > 60; GFR NON-AFRICAN AMERICAN > 60
[2017-01-19 08:58] LABS: T3 0.691 nmol/L (1.49-2.60)
[2017-01-19] MEDS: Multivitamin With Minerals Tab PO SCH (09:46)
[2017-01-19] MEDS: Cholestyramine 4 gm/Pkt UD PO SCH ×2 (09:47→21:52)
[2017-01-19] MEDS: Metoprolol Succinate 25 mg XL Tab PO SCH (17:43)
--- NOTE | 2017-01-19 21:25 | CON ---
RENAL CONSULTATION DATE: The patient is located in room 709, bed 2. REQUESTING PHYSICIAN: Berny Cook MD REASON FOR RENAL CONSULTATION: Hyponatremia and for further evaluation. HISTORY OF PRESENT ILLNESS: Mrs. Kaiser is a 67-year-old elderly female with past medical history significant for hypertension, COPD, anxiety, and status post ileostomy, was admitted with uncontrolled hypertension and headache to the ICU initially, subsequently transferred to transitional care unit for physical therapy. The patient is feeling much better and not in acute distress and renal consult was initially requested for evaluation of the hyponatremia. The patient was started on IV fluids, normal saline, and serum sodium gradually improved now. Serum sodium improved from 123 to 131 this morning. The patient is not in acute distress. Denies any headache, dizziness, and denies any nausea, vomiting, or diarrhea. Denies any swelling of the legs. The patient does complain of occasional dizziness. CURRENT MEDICATIONS: Include as follows, 1. Bacitracin ointment topical. 2. Claritin 10 mg p.o. at bedtime. 3. Trazodone 100 mg p.o. at bedtime. 4. Dilaudid 2 mg p.o. q.8 hours. 5. Ergocalciferol 50,000 units 3 times a week. 6. DuoNeb inhaler. 7. Flonase. 8. Nicoderm patch daily. 9. Norvasc 2.5 mg daily. 10. Plavix 75 mg daily. 11. Prednisone 5 mg p.o. b.i.d. 12. Questran 4 mg p.o. q.12 hours. 13. Octreotide 100 mcg subcutaneously q.12 hours. 14. Sodium bicarbonate 325 mg p.o. b.i.d. 15. Multivitamin 1 tablet p.o. daily. 16. IV fluids, normal saline at 80 mL per hour. 17. Toprol-XL 25 mg p.o. daily. 18. Vitamin B12 1000 mcg every 2 weeks. 19. Xanax 0.5 mg p.o. q.12 hours. 20. Prednisone 10 mg p.o. x1 dose. PHYSICAL EXAMINATION GENERAL: Mrs. Kaiser is a 67-year-old elderly female, moderately built, moderately nourished, and not in acute distress. VITAL SIGNS: This afternoon as follows, blood pressure 123/52, pulse 67, respirations 20, temperature 97.2, and saturation 99%. HEENT: Pupils are normal, reactive to light and accommodation. Conjunctivae pink. Sclerae anicteric. Tongue is moist. NECK: Trachea is midline. CARDIOVASCULAR: [place] at the fifth intercostal space midclavicular line. S1 and S2 audible. No murmur or gallop. LUNGS: Symmetrical on both sides. Bilateral breath sounds clear on auscultation. ABDOMEN: Normal in appearance. The patient has ileostomy. No hepatosplenomegaly. Bowel sounds present and tympanic. No guarding. No rigidity. The patient has a midline scar present from the previous surgeries. CENTRAL NERVOUS SYSTEM: The patient is alert, awake, and oriented x3. Nonfocal neurologic examination. Cranial nerves II through XII are grossly intact. Sensory motor system is within normal limits. EXTREMITIES: No cyanosis. No clubbing. No edema. LABORATORY DATA: Include as follows; as of 01/18/2017, sodium 131, potassium 3.9, chloride 101, CO2 of 25, BUN 12, creatinine 0.9, glucose 79, and calcium 8.9. Other laboratory data, TSH 0.37 and serum cortisone level is 1.2. ASSESSMENT: In summary, Mrs. Kaiser is a 67-year-old elderly female with a history of hypertension, anxiety, status post ileostomy, who was admitted with uncontrolled hypertension and with dizziness and now found to have hyponatremia. Her workup showing low TSH level and low serum cortisone level, on IV fluids, normal saline: 1. Hyponatremia, etiology is not clear, rule out adrenal insufficiency, rule out thyroid disease, rule out hyperthyroidism. PLAN: We will continue IV fluids, normal saline at 80 mL per hour and endocrinology consult for further evaluation and the patient may need Cortrosyn stimulation test for evaluation of adrenal insufficiency and also we will check free T4 and T3 uptake and also we will check thyroglobulin antibodies and also antiperoxidase antibodies. Endocrinology consulted as per Dr. Cook and repeat BMP in the a.m. Thank you for allowing me to participate in your patient's care. Deysi Carrillo MD 2DT: 01/19/2017 1:56:56 [facility] # [id number]
--- NOTE | 2017-01-19 22:15 | CON ---
LOCATION: TCU room #709, [facility]. HISTORY OF PRESENT ILLNESS: This is a 67-year-old female with chronic obstructive lung disease and had a recent acute exacerbation and transferred now to TCU for further physical therapy from deconditioning and is also now being referred for endocrine evaluation because of abnormal thyroid and cortisol levels as noted. PAST MEDICAL HISTORY: As mentioned above, history of hypertension and dyslipidemia, history of chronic obstructive lung disease from nicotine dependence, history of chronic vertigo and recent bouts of dizziness and lightheadedness with recent ataxia and is currently undergoing neurological workup as noted. Also history of chronic fibromyalgia with polyarthralgias and myalgias noted episodically. PAST SURGICAL HISTORY: History of cholecystectomy and hysterectomy as noted. SOCIAL HISTORY: The patient has a supportive family and is actively smoking at this time. FAMILY HISTORY: Positive for hypertension and diabetes. REVIEW OF SYSTEMS: As mentioned above, admits to generalized body weakness with easy fatigability and tiredness and suboptimal energy level. Also admits to severe bouts of dizziness and lightheadedness with unsteady gait and ataxia, worse in the last few days while inpatient. No recent chest pain or palpitations or PNDs, however, admits to recent bronchorrhea and exacerbation of shortness of breath and productive cough as noted. Her oral intake is variable with nausea, dyspepsia, and occasional bouts of upper abdominal pain. She also admits to episodic neck and upper back pain with lower back pain in the last few days as noted. No recent alterations of bowel and her urinary patterns. PHYSICAL EXAMINATION GENERAL: This is a female, in no apparent distress. VITAL SIGNS: Blood pressure of 140/80, pulse of 70 beats per minute and regular, temperature 98, and respirations 20. Height is 5 feet 2 inches, weight is 111 pounds. HEENT: Head, normocephalic. Eyes, anicteric with pink conjunctivae. Funduscopy not possible at this time.. Ears, nose and throat are otherwise normal. NECK: Supple. Thyroid gland is normal sized. No carotid bruits or any cervical adenopathy. CARDIOPULMONARY: Adynamic precordium. S1 and S2 is rapid and regular. LUNGS: Clear to auscultation. ABDOMEN: Flat, soft with positive bowel sounds. EXTREMITIES: No peripheral edema. Pulses are +2 bilaterally. LABORATORY DATA: Her chemistries showed a BUN of 12, sodium 131, potassium 3.5, chloride 101, CO2 of 25, glucose 79 and creatinine 0.9. Her thyroid studies showed a TSH of 0.37 with a cortisol level of 1.2 mcg/dL. ASSESSMENT: This is a 67-year-old female with recent acute exacerbation of chronic obstructive pulmonary disease and steroid dependence, now transferred to TCU and is being referred for evaluation of abnormal thyroid and cortisol levels as noted. The thyroid levels are indicative of the so called acute sick euthyroid syndrome, especially with the recent steroid usage with transient TSH suppression from steroid use and will need further clarification of her thyroid studies with a comprehensive thyroid testing to be undertaken. 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 PLAN OF MANAGEMENT: We will restart her oral steroids right away with prednisone to be given at 10 mg as a stat dose tonight and tomorrow, start her on a lower dose of prednisone at 5 mg b.i.d. after meals as ordered. She cannot be taken off abruptly from the steroids being given as this will provoke or precipitate secondary adrenal insufficiency and will affect her hemodynamically and clinically as expected. We will obtain serum cortisol levels and titrate her dose regimen accordingly. We will also obtain a comprehensive thyroid hormonal profile to confirm the presence of thyroid dysfunction which is temporary again from the intercurrent stressors as mentioned. We will follow and advise accordingly. Karin Whitney MD
[2017-01-20] MEDS: Albuterol-Ipratrop 3 mg / 0.5 (3 ml) UD INH SCH ×4 (01:13→19:27)
--- NOTE | 2017-01-20 02:42 | PN ---
DATE: 01/19/2015 ROOM: 709. SUBJECTIVE: This is a 67-year-old female with recent admission for acute exacerbation of COPD and started on IV steroid therapy and has since then improved clinically and metabolically as noted. She is also being evaluated for hypoadrenalism and hypothyroidism as noted thereof. She is undergoing IV antibiotic management for acute pneumonitis as given and noted. Her glycemic values are much improved at this time and have ranged from 95 to 103 mg/dL. LABORATORY DATA: The latest chemistry showed the BUN of 9, sodium 134, potassium 4.2, chloride 102, CO2 of 24, glucose 103 and creatinine 0.4. A T4 of 7.79 with a free T4 which was actually not done and a TSH of 0.69. ASSESSMENT AND PLAN: At this time, we will continue the same medical therapy with Tapazole given as 10 mg b.i.d. as ordered. Her serum cortisol level is 1.2 mcg/dL and most likely related to hypoalbuminemia from the underlying *------* accordingly. We will obtain serial chemistries and supplement accordingly as needed. Karin Whitney MD
[2017-01-20 07:08] LABS: ALB/GLOB RATIO 1.3 (1.0-2.1); ALBUMIN 3.3 g/dL (3.5-5.0); ALT/SGPT 31 U/L (9-52); AST/SGOT 29 U/L (14-36); BLOOD UREA NITROGEN 11 mg/dl (7-17); CALCIUM 9.1 mg/dL (8.4-10.2); GFR AFRICAN-AMERICAN > 60; GFR NON-AFRICAN AMERICAN > 60
[2017-01-20 07:20] LABS: T4 6.93 ug/dl (5.5-11.0)
[2017-01-20] MEDS: Multivitamin With Minerals Tab PO SCH (09:22)
[2017-01-20] MEDS: Cholestyramine 4 gm/Pkt UD PO SCH ×2 (09:23→21:55)
[2017-01-20] MEDS: Ergocalciferol 50,000 Intl Units Cap PO SCH (09:29)
[2017-01-20 12:12] LABS: CORTISOL AM 2.5 ug/dL (4.46-22.7)
--- NOTE | 2017-01-20 13:41 | CP.PCM.PN ---
Subjective - Date & Time of Evaluation Date of Evaluation: 01/20/17 Time of Evaluation: 12:30 - Subjective Subjective: NO CHEST PAIN OR SOB FEELS BETTER Objective - Vital Signs/Intake and Output Vital Signs (last 24 hours): Temp Pulse Resp BP Pulse Ox 98.1 F 54 L 20 146/73 99 01/20/17 08:22 01/20/17 09:22 01/20/17 08:22 01/20/17 09:22 01/20/17 08:22 - Medications Medications: Current Medications Albuterol/Ipratropium (Duoneb 3 Mg/0.5 Mg (3 Ml) Ud) 3 ml INH RQ6 PRN PRN Reason: Shortness of Breath Last Admin: 01/18/17 23:41 Dose: 3 ml Albuterol/Ipratropium (Duoneb 3 Mg/0.5 Mg (3 Ml) Ud) 3 ml INH RQ6 ALCON Last Admin: 01/20/17 07:43 Dose: 3 ml Alprazolam (Xanax) 0.5 mg PO Q12 PRN PRN Reason: Anxiety Last Admin: 01/19/17 23:30 Dose: 0.5 mg Amlodipine Besylate (Norvasc) 2.5 mg PO DAILY [facility] Last Admin: 01/20/17 09:22 Dose: 2.5 mg Bacitracin (Bacitracin) 1 ea TOP BID PRN PRN Reason: Rash Last Admin: 01/17/17 15:06 Dose: 1 ea Cholestyramine Resin (Questran) 4 gm PO Q12 [facility] Last Admin: 01/20/17 09:23 Dose: Not Given Clopidogrel Bisulfate (Plavix) 75 mg PO DAILY [facility] Last Admin: 01/20/17 09:21 Dose: 75 mg Cyanocobalamin (Vitamin B12 1000 Mcg/Ml Inj) 1,000 mcg IM Q14D [facility] Last Admin: 01/10/17 21:06 Dose: Not Given Ergocalciferol (Drisdol 50,000 Intl Units Cap) 1 cap PO MWF [facility] Last Admin: 01/20/17 09:29 Dose: 1 cap Fluticasone Propionate (Flonase) 2 spr PRATIBHA HS PRN PRN Reason: Allergy symptoms Last Admin: 01/11/17 21:54 Dose: 2 spr Hydromorphone HCl (Dilaudid) 2 mg PO Q8 PRN PRN Reason: Pain, severe (8-10) Last Admin: 01/20/17 01:41 Dose: 2 mg Loratadine (Claritin) 10 mg PO QPM PRN PRN Reason: Allergy symptoms Last Admin: 01/19/17 21:52 Dose: 10 mg Metoprolol Succinate (Toprol Xl) 25 mg PO DAILY@1700 [facility] Last Admin: 01/19/17 17:43 Dose: 25 mg Multivitamins/Minerals (Therapeutic-M Tab) 1 tab PO DAILY [facility] Last Admin: 01/20/17 09:22 Dose: 1 tab Nicotine (Nicoderm Cq) 1 patch TD DAILY [facility] Last Admin: 01/20/17 09:23 Dose: 1 patch Octreotide Acetate (Sandostatin) 100 mcg SC Q12 [facility] Last Admin: 01/20/17 09:29 Dose: 100 mcg Prednisone (Prednisone Tab) 5 mg PO BID [facility] Last Admin: 01/20/17 09:22 Dose: 5 mg Sodium Bicarbonate (Sodium Bicarbonate Tab) 325 mg PO BID [facility] Last Admin: 01/20/17 09:23 Dose: 325 mg Trazodone HCl (Desyrel) 100 mg PO HS [facility] Last Admin: 01/19/17 21:52 Dose: 100 mg - Labs Labs: 01/16/17 11:50 01/20/17 05:45 - Respiratory Exam Respiratory Exam: Clear to Ausculation Bilateral - Cardiovascular Exam Cardiovascular Exam: REGULAR RHYTHM, +S1, +S2 - Extremities Exam Extremities Exam: Normal Inspection - Additional Findings Additional findings: T4 NORMAL T3, TSH AND CORTISOL ARE LOW Assessment and Plan - Assessment and Plan (Free Text) Assessment: COPD HYPERTENSION Plan: CONTINUE BRONCHODILATORS, CLOPIDOGREL, AMLODIPINE AND METOPROLOL ENDOCRINOLOGY TO SEE
[2017-01-20] MEDS: Metoprolol Succinate 25 mg XL Tab PO SCH (17:46)
[2017-01-21] MEDS: Albuterol-Ipratrop 3 mg / 0.5 (3 ml) UD INH SCH ×3 (01:01→13:09)
--- NOTE | 2017-01-21 03:12 | PN ---
ENDOCRINOLOGY FOLLOWUP NOTE DATE: ROOM: 709. SUBJECTIVE: This is a 67-year-old female with recent acute exacerbation of COPD and received IV steroids and has improved clinically and hemodynamically as noted thereof. She has been transferred now to TCU for ongoing physical therapy as noted and given. She remains clinically euthyroid and by chemically has evidence of the so called acute sick euthyroid syndrome as noted. Her thyroid indices showed a TSH of 0.14 with a total T4 of 6.93 expected with intercurrent oral steroid therapy as given. Her serum cortisol level done initially was 1.2 mcg/dL, which is extremely low and a repeat level today at 2.5 mcg/dL as noted. LABORATORY DATA: Her latest chemistry showed BUN of 11, sodium 132, potassium 4.0, chloride 100, CO2 of 24, glucose 106, and creatinine 0.9. ASSESSMENT AND PLAN: So at this time, we will continue the prednisone given as 5 mg b.i.d. after meals as ordered to optimize metabolic control. She clearly needs almost a lifelong low-dose basal steroid replacement to optimize the effects of secondary hypoadrenalism. We will follow and advise accordingly. Karin Whitney MD
--- NOTE | 2017-01-21 05:26 | CON ---
DATE: 01/20/2017 HISTORY OF PRESENT ILLNESS: Neurological problems, vertebrobasilar insufficiency. PHYSICAL EXAMINATION VITAL SIGNS: Blood pressure 175/71, mean arterial pressure of 110, pulse rate 60, respiratory rate 16, temperature afebrile. ASSESSMENT: The patient seems to be stable with vital signs. No dizziness. The patient is ambulatory on her own. The patient's neurostatus is improved and cardiac status also improved as well. RECOMMENDATIONS: The patient continues with the present management. No other workup is needed from neurological point of view. Jacobo Patterson MD
[2017-01-21 08:07] VITALS: BP 144/64; PULSE 56; TEMP 98.2; O2SAT 98
[2017-01-21] MEDS: Multivitamin With Minerals Tab PO SCH (08:26)
[2017-01-21] MEDS: Cholestyramine 4 gm/Pkt UD PO SCH (09:41)
--- NOTE | 2017-01-21 10:55 | CP.PCM.PN ---
Subjective - Date & Time of Evaluation Date of Evaluation: 01/21/17 Time of Evaluation: 10:00 - Subjective Subjective: NO CHEST PAIN BREATHING WELL TODAY NO DIZZINESS GAIT IS BETTER Objective - Vital Signs/Intake and Output Vital Signs (last 24 hours): Temp Pulse Resp BP Pulse Ox 98.2 F 56 L 20 144/64 98 01/21/17 08:06 01/21/17 08:27 01/21/17 08:06 01/21/17 08:27 01/21/17 08:06 - Medications Medications: Current Medications Albuterol/Ipratropium (Duoneb 3 Mg/0.5 Mg (3 Ml) Ud) 3 ml INH RQ6 PRN PRN Reason: Shortness of Breath Last Admin: 01/18/17 23:41 Dose: 3 ml Albuterol/Ipratropium (Duoneb 3 Mg/0.5 Mg (3 Ml) Ud) 3 ml INH RQ6 [facility] Last Admin: 01/21/17 07:35 Dose: 3 ml Alprazolam (Xanax) 0.5 mg PO Q12 PRN PRN Reason: Anxiety Last Admin: 01/20/17 21:57 Dose: 0.5 mg Amlodipine Besylate (Norvasc) 2.5 mg PO DAILY [facility] Last Admin: 01/21/17 08:27 Dose: 2.5 mg Bacitracin (Bacitracin) 1 ea TOP BID PRN PRN Reason: Rash Last Admin: 01/17/17 15:06 Dose: 1 ea Cholestyramine Resin (Questran) 4 gm PO Q12 [facility] Last Admin: 01/21/17 09:41 Dose: Not Given Clopidogrel Bisulfate (Plavix) 75 mg PO DAILY [facility] Last Admin: 01/21/17 08:26 Dose: 75 mg Cyanocobalamin (Vitamin B12 1000 Mcg/Ml Inj) 1,000 mcg IM Q14D [facility] Last Admin: 01/10/17 21:06 Dose: Not Given Ergocalciferol (Drisdol 50,000 Intl Units Cap) 1 cap PO MWF [facility] Last Admin: 01/20/17 09:29 Dose: 1 cap Fluticasone Propionate (Flonase) 2 spr PRATIBHA HS PRN PRN Reason: Allergy symptoms Last Admin: 01/11/17 21:54 Dose: 2 spr Hydromorphone HCl (Dilaudid) 2 mg PO Q8 PRN PRN Reason: Pain, severe (8-10) Last Admin: 01/21/17 01:14 Dose: 2 mg Loratadine (Claritin) 10 mg PO QPM PRN PRN Reason: Allergy symptoms Last Admin: 01/19/17 21:52 Dose: 10 mg Metoprolol Succinate (Toprol Xl) 25 mg PO DAILY@1700 [facility] Last Admin: 01/20/17 17:46 Dose: 25 mg Multivitamins/Minerals (Therapeutic-M Tab) 1 tab PO DAILY [facility] Last Admin: 01/21/17 08:26 Dose: 1 tab Nicotine (Nicoderm Cq) 1 patch TD DAILY [facility] Last Admin: 01/21/17 08:26 Dose: 1 patch Octreotide Acetate (Sandostatin) 100 mcg SC Q12 [facility] Last Admin: 01/21/17 09:55 Dose: 100 mcg Prednisone (Prednisone Tab) 5 mg PO BID [facility] Last Admin: 01/21/17 08:26 Dose: 5 mg Sodium Bicarbonate (Sodium Bicarbonate Tab) 325 mg PO BID [facility] Last Admin: 01/21/17 08:26 Dose: 325 mg Trazodone HCl (Desyrel) 100 mg PO HS [facility] Last Admin: 01/20/17 21:54 Dose: 100 mg - Labs Labs: 01/16/17 11:50 01/20/17 05:45 - Respiratory Exam Respiratory Exam: Clear to Ausculation Bilateral - Cardiovascular Exam Cardiovascular Exam: REGULAR RHYTHM, +S1, +S2 - Extremities Exam Extremities Exam: Normal Inspection Assessment and Plan - Assessment and Plan (Free Text) Assessment: HYPERTENSION COPD DECONDITIONING-IMPROVED Plan: CONTINUE BRONCHODILATORS, CLOPIDOGREL, AMLODIPINE AND METOPROLOL FOR DISCHARGE TODAY
--- NOTE | 2017-01-21 17:09 | PN ---
DATE: 01/20/2017 SUBJECTIVE: The patient is seen today, 01/20/2017. She is cooperative with physical therapy. PHYSICAL EXAMINATION VITAL SIGNS: Her blood pressure is 146/73, temperature 97.5, respiratory rate 20, and pulse 60. HEENT: Pupils are equal and reactive to light. Normal-appearing mucosa of the conjunctivae, oropharyngeal, and nasal membrane mucosa. NECK: Supple. No JVD, no carotid bruit, no lymph node, and no thyromegaly. CHEST AND LUNGS: Bilateral symmetrical expansion. Good air exchange. No rales, no rhonchi. CARDIOVASCULAR: PMI not localized. S1 and S2. No additional sounds. ABDOMEN: Normoactive bowel sounds. No tenderness. No organomegaly. No masses. EXTREMITIES: No cyanosis, no clubbing, no edema. HEAD OF HISTORY: Alert, awake and oriented x3. The patient moves all extremities equally. ASSESSMENT: 1. Transient ischemic attack. 2. Chest pain, likely musculoskeletal. 3. Status post ileostomy after a complicated *------* surgery. PLAN: Continue current medications and physical therapy and follow recommendation of manager route and stone sawyer regarding the low sodium and the possible adrenal deficiency. Berny Cook MD
--- NOTE | 2017-01-22 01:05 | PN ---
DATE: 01/21/2017 ROOM 709 [facility]. SUBJECTIVE: This is a 67-year-old female with recent acute exacerbation of COPD and given IV steroids and switched over to oral steroids as noted thereof. She continues, however, to have persistent generalized body weakness with headaches and episodic bouts of shortness of breath especially on exertion as noted thereof. Her latest chemistry showed a BUN of 11, sodium 132, potassium 4.0, chloride 100, CO2 of 24, glucose 106, creatinine 0.9. Her latest thyroid study showed a T4 of 6.93 with TSH of 0.14 and a total T3 of 0.691, which is indicative of the so called acute sick euthyroid syndrome with superimposed TSH suppression from the intercurrent steroid therapy as given. She also have been evaluated to have secondary adrenal insufficiency with hypoadrenalism and the initial cortisol level was 1.2 mg/dL with a repeat level yesterday of 2.5 mg/dL with the initiation of steroid therapy as ordered. So at this time, will clearly need long-term oral steroid therapy as maintenance dosing to obviate hypoadrenalism and adrenal insufficiency. We will continue the prednisone given at the lower dose of 5 mg b.i.d. after meals as ordered. We will titrate incremental as indicated to optimize metabolic control. We will also obtain serial thyroid studies and serial cortisol levels and even serial chemistries and supplement accordingly as needed. We will follow with you. Karin Whitney MD
--- NOTE | 2017-01-22 15:57 | DS ---
REASON FOR ADMISSION: This is a 67-year-old female with history of multiple medical problems, who was admitted to transitional care unit for deconditioning and subacute rehabilitation. COURSE OF HOSPITALIZATION: The patent was admitted to transitional care unit and she was started on physical therapy and occupational therapy. During the stay, the patient was found to be hyponatremic and she had a nephrology and endocrinology consultation. The patient also continued to be followed by treatment specialist, Dr. Rutledge. The patient was found to have some adrenal insufficiency and she was started on prednisone by endocrinology. The patient was discharged home in a stable condition to follow with her primary care physician, Dr. Chauncey Rodriguez. The patient will be continued on her cardiac medications and follow with Dr. Whitney, endocrinology as well as with her primary care physician. FINAL DIAGNOSES: Hypertension, adrenal insufficiency, hyponatremia, chronic obstructive pulmonary disease, smoker, status post ileostomy after complicated hernia surgery. Berny Cook MD
== END 2017-01-21 14:07 | disposition home health service (06) | DRG 190 ==
LOC: H.TCU 16:35
PROVIDERS: ADMIT Internal Medicine; ATTEND Internal Medicine
PROC: 3E0F7GC Introduction of Other Therapeutic Substance into Respiratory Tract, Via Natural or Artificial Opening (ICD-10-PCS; principal; 2017-01-11)
PROC: F07M6FZ Therapeutic Exercise Treatment of Musculoskeletal System - Whole Body using Assistive, Adaptive, Supportive or Protective Equipment (ICD-10-PCS; 2017-01-11)
PROC: F08Z4FZ Home Management Treatment using Assistive, Adaptive, Supportive or Protective Equipment (ICD-10-PCS; 2017-01-11)
DX: J44.0 Chronic obstructive pulmonary disease with (acute) lower respiratory infection (principal); J18.9 Pneumonia, unspecified organism; E27.49 Other adrenocortical insufficiency; E87.1 Hypo-osmolality and hyponatremia; G45.0 Vertebro-basilar artery syndrome; J44.1 Chronic obstructive pulmonary disease with (acute) exacerbation; E11.9 Type 2 diabetes mellitus without complications; E07.81 Sick-euthyroid syndrome; E83.42 Hypomagnesemia; E88.09 Other disorders of plasma-protein metabolism, not elsewhere classified; F17.200 Nicotine dependence, unspecified, uncomplicated; F41.9 Anxiety disorder, unspecified; I10 Essential (primary) hypertension; M79.7 Fibromyalgia; R29.6 Repeated falls; Z79.52 Long term (current) use of systemic steroids; Z83.3 Family history of diabetes mellitus; Z90.49 Acquired absence of other specified parts of digestive tract; Z90.710 Acquired absence of both cervix and uterus; Z93.2 Ileostomy status; G47.00 Insomnia, unspecified; M62.81 Muscle weakness (generalized); H81.10 Benign paroxysmal vertigo, unspecified ear

== ENCOUNTER 2017-09-02 16:04 | Inpatient (IN) | payer MEDICARE, OTHER ==
[2017-09-02 16:04] VITALS: BMI 20.2
[2017-09-02] MEDS ORDERED: Albuterol-Ipratrop 3 mg / 0.5 (3 ml) UD IH STA ×3 (16:17→16:26)
[2017-09-02] MEDS ORDERED: Albuterol-Ipratrop 3 mg / 0.5 (3 ml) UD ONE (16:22)
--- NOTE | 2017-09-02 16:32 | ED PDOC ---
HPI: SOB/CHF/COPD Time Seen by Provider: 09/02/17 16:13 Chief Complaint (Nursing): Shortness Of Breath Chief Complaint (Provider): Shortness Of Breath History Per: Patient History/Exam Limitations: no limitations Onset/Duration Of Symptoms: Days (x1 week) Current Symptoms Are (Timing): Still Present Additional Complaint(s): 67 year old female with medical history of COPD, presents to the emergency department with a complaint of progressive shortness of breath associated with productive cough of yellow sputum ongoing for 1 week. Denied any fever or chills. Patient reported no improvement with inhaler use at home. PMD: Lasha Rodriguez MD Past Medical History Reviewed: Historical Data, Nursing Documentation, Vital Signs Vital Signs: Last Vital Signs Temp 98.0 F 09/02/17 16:13 Pulse 91 H 09/02/17 16:13 Resp 18 09/02/17 16:13 BP 173/108 H 09/02/17 16:13 Pulse Ox 98 09/02/17 16:42 - Medical History PMH: Anxiety, COPD, Fibromyalgia, HTN Denies: HIV, Chronic Kidney Disease - Surgical History Surgical History: Cholecystectomy, Hernia Repair (ileostomy s/p complications with hernia repair) - Family History Family History: States: [place] (father ( at age 48), brother ( at age 55)) - Social History Current smoker - smoking cessation education provided: No Alcohol: None Drugs: Denies - Immunization History Hx Tetanus Toxoid Vaccination: No Hx Influenza Vaccination: Yes Hx Pneumococcal Vaccination: Yes - Home Medications Home Medications: Ambulatory Orders Medication Instructions Recorded Budesonide/Formoterol Fumarate 2 puff IH Q12H 02/02/16 [Symbicort 160-4.5 Mcg Inhaler] Cyanocobalamin [Vitamin B12 1000 1,000 mcg IM Q14D 02/02/16 mcg/ml Inj] Multivitamin/Iron/Folic Acid 1 tab PO DAILY 02/02/16 [Daily Multivitamin-Iron Tablet] Omeprazole 40 mg PO DAILY 02/02/16 traZODone [Desyrel] 100 mg PO HS 02/02/16 Albuterol Sulfate [Proair Hfa] 2 puff IH Q4H PRN 01/06/17 Cetirizine HCl [All Day Allergy 10 mg PO QPM 01/06/17 Relief] Fluticasone Nasal [Flonase] 2 spray PRATIBHA HS PRN 01/06/17 Octreotide [SandoSTATIN] 100 mcg SQ Q12 01/06/17 Alprazolam [Xanax] 0.5 mg PO HS 01/07/17 Alprazolam [Xanax] 0.5 mg PO DAILY PRN 09/02/17 Calcium Carbonate/Vitamin D3 1 tab PO DAILY 09/02/17 [Oyster Shell Calcium-Vit D Tab] Ergocalciferol (Vitamin D2) 50,000 unit PO MO 09/02/17 [Vitamin D2] Metoprolol Succinate [Toprol XL] 25 mg PO DAILY 09/02/17 Sodium Bicarbonate Tab [Sodium 650 mg PO Q12 09/02/17 Bicarbonate Tab] Zolpidem [Ambien] 10 mg PO HS 09/02/17 - Allergies Allergies/Adverse Reactions: Allergies Allergy/AdvReac Type Severity Reaction Status Date / Time Sulfa (Sulfonamide Allergy crystallized Verified 09/02/17 16:12 Antibiotics) kidneys Review of Systems ROS Statement: Except As Marked, All Systems Reviewed And Found Negative Constitutional: Negative for: Fever, Chills Respiratory: Positive for: Cough, Shortness of Breath, Sputum (thick and yellow) Physical Exam - Reviewed Nursing Documentation Reviewed: Yes Vital Signs Reviewed: Yes - Physical Exam Appears: Positive for: Uncomfortable, In Acute Distress Cardiovascular/Chest: Positive for: Chest Non Tender, Tachycardia, Other ( regular rate). Negative for: Regular Rate, Rhythm, Bradycardia Respiratory: Positive for: Decreased Breath Sounds, Rhonchi (bilateral), Wheezing (expiratory), Respiratory Distress (moderate). Negative for: Normal Breath Sounds Extremity: Positive for: Normal ROM (upper/lower). Negative for: Pedal Edema ( bilateral), Calf Tenderness (bilateral) Neurologic/Psych: Positive for: Alert (x3), Oriented - Laboratory Results Result Diagrams: 09/02/17 16:52 09/02/17 16:52 - ECG O2 Sat by Pulse Oximetry: 98 (RA) Pulse Ox Interpretation: Normal Medical Decision Making Medical Decision Making: Initial Impression: Progressive shortness of breath Initial Plan: * EKG * CMP * CBC * CXR * Duoneb 3ml INH * Prednisone 125mg IVP * Blood culture * Vapotherm * Peak flow pre/post treatment * Influenza A B Scribe Attestation: Documented by Karin Norris, acting as a scribe for Hipolito Jacobsen MD. Provider Scribe Attestation: All medical record entries made by the Scribe were at my direction and personally dictated by me. I have reviewed the chart and agree that the record accurately reflects my personal performance of the history, physical exam, medical decision making, and the department course for this patient. I have also personally directed, reviewed, and agree with the discharge instructions and disposition. Disposition - Clinical Impression Clinical Impression: COPD exacerbation, Bronchitis - Patient ED Disposition Is Patient to be Admitted: Yes - Disposition Disposition Time: 17:45 Condition: FAIR Forms: saambaa (Moroccan) - Pt Status Changed To: Hospital Disposition Of: Inpatient - Admit Certification Admit to Inpatient:: After my assessment, the patient will require hospitalization for at least two midnights. This is because of the severity of symptoms shown, intensity of services needed, and/or the medical risk in this patient being treated as an outpatient. - POA Present On Arrival: None
[2017-09-02] MEDS ORDERED: Azithromycin 500 MG in Sodium Chloride 0.9% 250 ML IVPB STA (16:53)
[2017-09-02] MEDS ORDERED: cefTRIAXone (Rocephin) 1 gm Inj ONE (17:00)
[2017-09-02 17:06] LABS: BASO % 0.4 % (0.0-2.0); EOS % 0.3 % (0.0-4.0); HEMOGLOBIN 15.5 g/dL (12.0-16.0); LYMPH # 1.3 K/uL (1.0-4.3); LYMPH % 15.2 % (20.0-40.0); MEAN CELL VOLUME 97.7 fl (81.0-99.0); MEAN CORPUSCULAR HEMOGLOBIN 32.5 pg (27.0-31.0); MEAN CORPUSCULAR HGB CONC 33.2 g/dL (33.0-37.0); MEAN PLATELET VOLUME 7.1 fl (7.2-11.7); MONO # 0.7 K/uL (0.0-0.8); MONO % 8.1 % (0.0-10.0); NEUT # 6.6 K/uL (1.8-7.0); NRBC % 0.1 % (0.0-0.0); RBC 4.79 Mil/uL (3.80-5.20); RED CELL DISTRIBUTION WIDTH 13.6 % (11.5-14.5); WHITE BLOOD COUNT 8.7 K/uL (4.8-10.8)
[2017-09-02 17:07] LABS: ALB/GLOB RATIO 1.2 (1.0-2.1); ALBUMIN 4.2 g/dL (3.5-5.0); ALT/SGPT 35 U/L (9-52); AST/SGOT 37 U/L (14-36); BLOOD UREA NITROGEN 8 mg/dl (7-17); CALCIUM 9.8 mg/dL (8.4-10.2); GFR AFRICAN-AMERICAN > 60; GFR NON-AFRICAN AMERICAN > 60
[2017-09-02 18:25] LABS: ABG ALLEN TEST YES; ARTERIAL BLOOD GAS O2 SAT 95.5 % (95-98); ARTERIAL BLOOD GAS PCO2 42 mm/Hg (35-45); ARTERIAL BLOOD GAS PH 7.41 (7.35-7.45); ARTERIAL BLOOD GAS PO2 57 mm/Hg (80-100); ARTERIAL BLOOD GAS TCO2 27.9 mmol/L (22-28)
--- NOTE | 2017-09-02 18:34 | RAD ---
HISTORY: cough COMPARISON: Comparison made with chest radiograph and CTA chest dated 01/06/2017 and 02/03/2016 respectively FINDINGS: In situ left subclavian MediPort with tip in the SVC unchanged LUNGS: Lung caraballo appear hyperinflated with flattened diaphragms consistent with underlying emphysema seen to much better advantage on prior CTA of the chest. Blunting both CP angles may be due to chronic pleural thickening. PLEURA: No significant pleural effusion identified, no pneumothorax apparent. CARDIOVASCULAR: Heart size normal. OSSEOUS STRUCTURES: No significant abnormalities. VISUALIZED UPPER ABDOMEN: Normal. OTHER FINDINGS: None. IMPRESSION: Hyperinflation consistent with emphysema. Blunting both CP angles likely due to chronic pleural thickening. No acute consolidation.
[2017-09-02 19:12] LABS: URINE AMORPHOUS SEDIMENT RARE /ul (<OCC); URINE BILIRUBIN NEGATIVE (NEGATIVE); URINE BLOOD SMALL (NEGATIVE); URINE CLARITY CLEAR (Clear); URINE COLOR YELLOW (YELLOW); URINE GLUCOSE (UA) NEG (Normal); URINE LEUKOCYTE ESTERASE NEG Leu/uL (Negative); URINE NITRATE NEGATIVE (NEGATIVE); URINE PROTEIN 100 mg/dL (NEGATIVE); URINE UROBILINOGEN 0.2-1.0 mg/dL (0.2-1.0)
[2017-09-02] MEDS ORDERED: Albuterol HFA 90 mcg/actuation (8 g) IH PRN (21:07)
[2017-09-02] MEDS ORDERED: Fluticasone-Salmeterol 250-50mcg Diskus IH SCH (21:15)
[2017-09-02] MEDS: Fluticasone-Salmeterol 250-50mcg Diskus IH SCH (23:17)
[2017-09-03] MEDS ORDERED: Albuterol-Ipratrop 3 mg / 0.5 (3 ml) UD INH STA (02:06)
[2017-09-03] MEDS ORDERED: Albuterol-Ipratrop 3 mg / 0.5 (3 ml) UD INH SCH (04:00)
[2017-09-03] MEDS ORDERED: methylPREDNISolone 60 MG in Sodium Chloride 0.9% 50 ML IVPB SCH (04:00)
[2017-09-03 07:33] LABS: BASO % 0.3 % (0.0-2.0); HEMOGLOBIN 13.9 g/dL (12.0-16.0); LYMPH # 0.7 K/uL (1.0-4.3); LYMPH % 13.6 % (20.0-40.0); MEAN CELL VOLUME 96.8 fl (81.0-99.0); MEAN CORPUSCULAR HEMOGLOBIN 32.6 pg (27.0-31.0); MEAN CORPUSCULAR HGB CONC 33.7 g/dL (33.0-37.0); MEAN PLATELET VOLUME 7.8 fl (7.2-11.7); MONO # 0.3 K/uL (0.0-0.8); MONO % 4.6 % (0.0-10.0); NEUT # 4.4 K/uL (1.8-7.0); NEUT % 81.5 % (50.0-75.0); NRBC % 0.2 % (0.0-0.0); RBC 4.28 Mil/uL (3.80-5.20); RED CELL DISTRIBUTION WIDTH 13.1 % (11.5-14.5); WHITE BLOOD COUNT 5.4 K/uL (4.8-10.8)
--- NOTE | 2017-09-03 08:05 | CP.PCM.HP ---
History of Present Illness - History of Present Illness History of Present Illness: Patient evaluated with Dr Munson during rounds. 67 Y/O FEMALE WITH A HISTORY OF COPD, HTN, Anxiety and LONG HISTORY OF CIGARETTE SMOKING UP TO 3 PACKS PER DAY. Presented Yesterday to ED c/o worsening SOB for the past 2-3 days not improving with home HFA treatment and patient was admitted for COPD exacerbation. Today patient is still SOB and c/o chest/epigastric pressure which is not new to her. Afebrile. Present on Admission - Present on Admission Any Indicators Present on Admission: No Review of Systems - Review of Systems All systems: reviewed and no additional remarkable complaints except - Cardiovascular Cardiovascular: Other (Chest pressure) - Respiratory Respiratory: Cough, Dyspnea, Wheezing. absent: Hemoptysis Past Patient History - Past Medical History & Family History Past Medical History?: Yes - Past Social History Smoking Status: Light Smoker < 10 Cigarettes Daily - CARDIAC Hx Cardiac Disorders: Yes Hx Hypertension: Yes - PULMONARY Hx Respiratory Disorders: Yes Hx Chronic Obstructive Pulmonary Disease (COPD): Yes - NEUROLOGICAL Hx Neurological Disorder: Yes Other/Comment: FIBROMYALGIA - HEENT Hx HEENT Problems: No - RENAL Hx Chronic Kidney Disease: No - ENDOCRINE/METABOLIC Hx Endocrine Disorders: No - HEMATOLOGICAL/ONCOLOGICAL Hx Blood Disorders: No Hx Human Immunodeficiency Virus (HIV): No - INTEGUMENTARY Hx Dermatological Problems: No - MUSCULOSKELETAL/RHEUMATOLOGICAL Hx Musculoskeletal Disorders: No Hx Falls: No - GASTROINTESTINAL Hx Gastrointestinal Disorders: Yes Hx Ileostomy: Yes - GENITOURINARY/GYNECOLOGICAL Hx Genitourinary Disorders: No - PSYCHIATRIC Hx Psychophysiologic Disorder: Yes Hx Anxiety: Yes Hx Substance Use: No - SURGICAL HISTORY Hx Surgeries: Yes Hx Cholecystectomy: Yes Hx Herniorrhaphy: Yes Hx Hysterectomy: Yes - ANESTHESIA Hx Anesthesia: Yes Hx Anesthesia Reactions: No Hx Malignant Hyperthermia: No Meds Allergies/Adverse Reactions: Allergies Allergy/AdvReac Type Severity Reaction Status Date / Time Sulfa (Sulfonamide Allergy crystallized Verified 09/02/17 16:12 Antibiotics) kidneys Physical Exam - Constitutional Appears: Non-toxic, In Acute Distress (SOB) - Eye Exam Eye Exam: EOMI, PERRL - ENT Exam ENT Exam: Mucous Membranes Moist - Respiratory Exam Respiratory Exam: Decreased Breath Sounds (B/L), Rhonchi, Wheezes. absent: Clear to Auscultation Bilateral - Cardiovascular Exam Cardiovascular Exam: REGULAR RHYTHM, +S1, +S2. absent: Gallop - GI/Abdominal Exam GI & Abdominal Exam: Normal Bowel Sounds, Soft. absent: Tenderness - Extremities Exam Extremities exam: Positive for: full ROM. Negative for: calf tenderness - Neurological Exam Neurological exam: Alert, Oriented x3 - Psychiatric Exam Psychiatric exam: Normal Affect, Normal Mood - Skin Skin Exam: Normal Color, Warm Results - Vital Signs Recent Vital Signs: Last Vital Signs Temp 97.7 F 09/03/17 08:00 Pulse 73 09/03/17 08:00 Resp 18 09/03/17 08:00 BP 171/91 H 09/03/17 08:00 Pulse Ox 96 09/03/17 08:00 - Labs Result Diagrams: 09/03/17 07:28 09/02/17 16:52 Labs: Laboratory Results - last 24 hr 09/02/17 09/02/17 09/02/17 16:52 16:52 17:08 WBC 8.7 RBC 4.79 Hgb 15.5 D Hct 46.8 MCV 97.7 D MCH 32.5 H MCHC 33.2 RDW 13.6 Plt Count 214 MPV 7.1 L Neut % (Auto) 76.0 H Lymph % (Auto) 15.2 L [place] % (Auto) 8.1 Eos % (Auto) 0.3 Baso % (Auto) 0.4 Neut # (Auto) 6.6 Lymph # (Auto) 1.3 [place] # (Auto) 0.7 Eos # (Auto) 0.0 Baso # (Auto) 0.0 pCO2 pO2 HCO3 ABG pH ABG Total CO2 ABG O2 Saturation ABG Base Excess Jonatan Test ABG Potassium A-a O2 Difference Glucose Lactate Vent Mode FiO2 Sodium 130 L Potassium 4.1 Chloride 93 L Carbon Dioxide 24 Anion Gap 17 BUN 8 Creatinine 0.8 Est GFR ( Amer) > 60 Est GFR (Non-Af Amer) > 60 Random Glucose 119 H Calcium 9.8 Total Bilirubin 0.6 AST 37 H ALT 35 Alkaline Phosphatase 94 Total Protein 7.7 Albumin 4.2 Globulin 3.5 Albumin/Globulin Ratio 1.2 Arterial Blood Potassium Urine Color Urine Clarity Urine pH Ur Specific [place] Urine Protein Urine Glucose (UA) Urine Ketones Urine Blood Urine Nitrate Urine Bilirubin Urine Urobilinogen Ur Leukocyte Esterase Urine RBC (Auto) Urine Microscopic WBC Amorphous Sediment Influenza Typ A,B (EIA) Negative for flu a/b 09/02/17 09/02/17 09/03/17 18:03 19:01 07:28 WBC 5.4 RBC 4.28 Hgb 13.9 Hct 41.4 MCV 96.8 MCH 32.6 H MCHC 33.7 RDW 13.1 Plt Count 183 MPV 7.8 Neut % (Auto) 81.5 H Lymph % (Auto) 13.6 L [place] % (Auto) 4.6 Eos % (Auto) 0.0 Baso % (Auto) 0.3 Neut # (Auto) 4.4 Lymph # (Auto) 0.7 L [place] # (Auto) 0.3 Eos # (Auto) 0.0 Baso # (Auto) 0.0 pCO2 42 pO2 57 L HCO3 26.0 ABG pH 7.41 ABG Total CO2 27.9 ABG O2 Saturation 95.5 ABG Base Excess 1.7 Jonatan Test Yes ABG Potassium 4.1 A-a O2 Difference 176.0 Glucose 138 H Lactate 1.3 Vent Mode High flow lpm FiO2 40.0 Sodium 127.0 L Potassium Chloride 96.0 L Carbon Dioxide Anion Gap BUN Creatinine Est GFR ( Amer) Est GFR (Non-Af Amer) Random Glucose Calcium Total Bilirubin AST ALT Alkaline Phosphatase Total Protein Albumin Globulin Albumin/Globulin Ratio Arterial Blood Potassium 4.1 Urine Color Yellow Urine Clarity Clear Urine pH 7.0 Ur Specific [place] 1.005 Urine Protein 100 Urine Glucose (UA) Neg Urine Ketones Negative Urine Blood Small Urine Nitrate Negative Urine Bilirubin Negative Urine Urobilinogen 0.2-1.0 Ur Leukocyte Esterase Neg Urine RBC (Auto) 1 Urine Microscopic WBC 2 Amorphous Sediment Rare H Influenza Typ A,B (EIA) Assessment & Plan - Assessment and Plan (Free Text) Assessment: 67 y/o F admitted for COPD exacerbation COPD exacerbation CXR no infiltrates C/W Duoneb and Steroids C/W IV Abx ABG at ED. PO2 57. Rest unremarkable CPT/PEP valve q8h ordered monitor Chest/Epigastric discomfort Poss due to COPD exacerbation Troponin stat to R/o Cardiac EKG at ED: NO acute ischemic changes: Pending report C/W Protonix daily Anxiety Chronic C/W Home meds
[2017-09-03] MEDS ORDERED: Azithromycin 500 MG in Sodium Chloride 0.9% 250 ML IVPB SCH (09:00)
[2017-09-03] MEDS: Fluticasone-Salmeterol 250-50mcg Diskus IH SCH ×2 (09:14→23:21)
[2017-09-03] MEDS: Pantoprazole 40 mg EC Tab PO SCH (09:15)
[2017-09-03] MEDS: Calcium-Vit D 500 mg-200 Units Tab UD PO SCH (09:15)
[2017-09-03] MEDS: Multivitamin With Minerals Tab PO SCH (09:19)
[2017-09-03] MEDS: Metoprolol Succinate 25 mg XL Tab PO SCH (09:20)
[2017-09-03 09:24] LABS: LDL CHOLESTEROL 48 mg/dL (0-129)
[2017-09-03 09:28] LABS: ALB/GLOB RATIO 1.2 (1.0-2.1); ALBUMIN 3.6 g/dL (3.5-5.0); ALT/SGPT 38 U/L (9-52); AST/SGOT 45 U/L (14-36); BLOOD UREA NITROGEN 12 mg/dl (7-17); CALCIUM 9.6 mg/dL (8.4-10.2); GFR AFRICAN-AMERICAN > 60; GFR NON-AFRICAN AMERICAN > 60; HDL CHOLESTEROL 34 MG/DL (30-70); T4 8.43 ug/dl (5.5-11.0)
[2017-09-03 09:42] LABS: T3 0.634 nmol/L (1.49-2.60)
[2017-09-03] MEDS ORDERED: Sodium Chloride 3% for Inhalation 4 ML VIAL.NEB IH PRN (10:03)
--- NOTE | 2017-09-03 11:35 | CARD ---
APPROVED REPORT EKG Measurement Heart [id number] <Conclusion> Normal sinus rhythm ST & Marked T wave abnormality, consider anterolateral ischemia Prolonged QT Abnormal ECG
--- NOTE | 2017-09-03 11:49 | CARD ---
APPROVED REPORT EKG Measurement Heart [id number] <Conclusion> Normal Sinus Rhythm
--- NOTE | 2017-09-03 12:16 | CON ---
DATE: HISTORY OF PRESENT ILLNESS: Ms. Kaiser is a 67-year-old female who was referred for pulmonary evaluation by Dr. Munson. She was admitted via the Emergency Room because of progressively worsening shortness of breath, exercise intolerance, swelling of legs and chest tightness for the past several days prior to presentation. She did not want to come to the Emergency Room, but EMT was called by family and then she was brought to the Emergency Room where she was diagnosed with acute exacerbation of chronic obstructive pulmonary disease. She has a history of hypertension, chronic obstructive pulmonary disease and continues to smoke cigarettes up to three packs a day for the past several years. She follows up with Dr. Rodriguez at [facility] who does not come to [facility]. She indicates that for the past several days has had what appeared to be a cold and has had exercise intolerance and chest tightness and has been taking high nebulized treatments and aerosolized bronchodilators, but continues to smoke cigarettes. She also took some Zithromax that was ordered by her primary care physician. FAMILY HISTORY: Remarkable for sister has COPD and hypertension and brother that of complications from cerebrovascular accident. PHYSICAL EXAMINATION GENERAL: The patient is alert and oriented, still has shortness of breath at rest and on mild exertion. VITAL SIGNS: Blood pressure of 171/91 with a pulse of 73 and respiratory rate of 18 to 20 per minute. She is febrile and O2 saturation of 96% on high-flow oxygen. SKIN: Shows fair turgor. HEENT: Pupils are equal and reactive to light and accommodation. Mouth shows fair hygiene with mucous engorgement of pharynx. LUNGS: Poor aeration bilaterally with rales and wheezing bilaterally with dullness at both bases. HEART: S1 and S2. ABDOMEN: Soft, nontender, and no organomegaly. EXTREMITIES: Shows 1+ bilateral pitting pedal edema. CENTRAL NERVOUS SYSTEM: Exam is grossly intact. LABORATORY DATA: WBC of 5.4, hemoglobin of 13.9, platelet count of 183,000, neutrophils of 81% and lymphocytes of 13. Sodium of 133, potassium of 4.5, BUN of 12, creatinine of 0.8, and serum glucose of 138. Troponin of 1.11. Arterial blood gas on 40% high-flow, pH of 7.41, pCO2 of 42, pO2 of 57, and O2 saturation of 95%. IMAGING DATA: Chest x-ray; hyperinflation consistent with emphysema, blunted costophrenic angles probably due to pleural thickening. EKG; accelerated junctional rhythm, some P-waves, so probably sinus rhythm, but official report is pending. IMPRESSION: Acute exacerbation of chronic obstructive pulmonary disease, probably secondary to upper respiratory tract infection, history of chronic cigarette smoking, history of hypertension, and mucus plugging of airways. PLAN: bronchodilators, oxygen high-flow, continuous. We will place the patient on Mucomyst to help expectorate specimen and sputum. The patient may benefit from cardiac evaluation in view of elevated at troponin level. Empiric antibiotic therapy for upper respiratory tract infection as well as bronchodilators [id number] and IV steroids. We will continue to follow with you. Further therapy will depend on findings. Nam Huddleston MD
[2017-09-03] MEDS: Enoxaparin 60 mg Syringe SC SCH ×2 (13:00→23:22)
[2017-09-03] MEDS ORDERED: Nitroglycerin 50mg in D5W 50 MG/250 ML BOTTLE IV ONE ×2 (13:17→23:28)
--- NOTE | 2017-09-03 13:52 | CP.PCM.CON ---
History of Present Illness - History of Present Illness History of Present Illness: THE PATIENT IS A 67 YEAR OLD FEMALE WITH A HISTORY OF COPD FROM CIGARETTE SMOKING, HYPERTENSION AND ANXIETY. SHE STATES THAT SHE HAD A COLD BEGINNING 6 DAYS AGO AND TOOK A Z PACK AND WAS STILL NOT FEELING BETTER AND SHE WAS COUGHING AND HAD SOB SO SHE WENT TO THE ER AND WAS ADMITTED FOR ACUTE EXACERBATION OF COPD AND WAS TREATED WITH ANTIBIOTICS, BRONCHODILATORS AND STEROIDS. SHE ALWAYS HAS CHEST PAIN FROM COUGHING AND CHEST WALL TENDERNESS. AN EKG DONE IN THE ER YESTERDAY WAS NORMAL. SHE HAD A TROPONIN DRAWN THIS MORNING SO CARDIOLOGY WAS CALLED. THE PATIENT TOLD ME THAT THE CHEST PAIN WAS A HEAVINESS AND TIGHTNESS. SHE DENIES ARM PAIN, NECK OR BACK PAIN, NAUSEA, VOMITING OR DIAPHORESIS. Past Patient History - Past Medical History & Family History Past Medical History?: Yes - Past Social History Smoking Status: Light Smoker < 10 Cigarettes Daily - CARDIAC Hx Cardiac Disorders: Yes Hx Hypertension: Yes - PULMONARY Hx Respiratory Disorders: Yes Hx Chronic Obstructive Pulmonary Disease (COPD): Yes - NEUROLOGICAL Hx Neurological Disorder: Yes Other/Comment: FIBROMYALGIA - HEENT Hx HEENT Problems: No - RENAL Hx Chronic Kidney Disease: No - ENDOCRINE/METABOLIC Hx Endocrine Disorders: No - HEMATOLOGICAL/ONCOLOGICAL Hx Blood Disorders: No Hx Human Immunodeficiency Virus (HIV): No - INTEGUMENTARY Hx Dermatological Problems: No - MUSCULOSKELETAL/RHEUMATOLOGICAL Hx Musculoskeletal Disorders: No Hx Falls: No - GASTROINTESTINAL Hx Gastrointestinal Disorders: Yes Hx Ileostomy: Yes - GENITOURINARY/GYNECOLOGICAL Hx Genitourinary Disorders: No - PSYCHIATRIC Hx Psychophysiologic Disorder: Yes Hx Anxiety: Yes Hx Substance Use: No - SURGICAL HISTORY Hx Surgeries: Yes Hx Cholecystectomy: Yes Hx Herniorrhaphy: Yes Hx Hysterectomy: Yes - ANESTHESIA Hx Anesthesia: Yes Hx Anesthesia Reactions: No Hx Malignant Hyperthermia: No Meds Allergies/Adverse Reactions: Allergies Allergy/AdvReac Type Severity Reaction Status Date / Time Sulfa (Sulfonamide Allergy crystallized Verified 09/02/17 16:12 Antibiotics) kidneys - Medications Medications: Current Medications Acetylcysteine (Acetylcysteine 20%) 2 ml INH RBID [facility] Albuterol/Ipratropium (Duoneb 3 Mg/0.5 Mg (3 Ml) Ud) 3 ml INH RQ4 [facility] Alprazolam (Xanax) 0.5 mg PO DAILY PRN PRN Reason: Anxiety Last Admin: 09/03/17 09:33 Dose: 0.5 mg Alprazolam (Xanax) 0.5 mg PO HS [facility] Last Admin: 09/02/17 23:15 Dose: 0.5 mg Aspirin (Aspirin) 325 mg PO DAILY [facility] Atorvastatin Calcium (Lipitor) 20 mg PO DAILY [facility] Calcium/Vitamin D (Oyster Shell Calcium/Vitamin D 500 Mg-200 Iu) 1 tab PO DAILY [facility] Last Admin: 09/03/17 09:15 Dose: 1 tab Cyanocobalamin (Vitamin B12 1000 Mcg/Ml Inj) 1,000 mcg IM Q14D [facility] Last Admin: 09/02/17 23:16 Dose: 1,000 mcg Enoxaparin Sodium (Lovenox) 50 mg SC Q12 [facility] PRN Reason: Protocol Last Admin: 09/03/17 13:00 Dose: 50 mg Ergocalciferol (Drisdol 50,000 Intl Units Cap) 1 cap PO MO [facility] Fluticasone Propionate (Flonase) 2 spr PRATIBHA HS PRN PRN Reason: Allergy symptoms Ceftriaxone Sodium 1 gm/ (Sodium Chloride) 100 mls @ 100 mls/hr IVPB DAILY@ 1600 [facility] PRN Reason: Protocol Azithromycin 500 mg/ Sodium (Chloride) 250 mls @ 250 mls/hr IVPB DAILY@1800 [facility] PRN Reason: Protocol Nitroglycerin/Dextrose (Nitroglycerin 50 Mg/250 Ml D5w) 50 mg in 250 mls @ 1.5 mls/hr IV .Q24H ONE; 5 MCG/MIN PRN Reason: Protocol Stop: 09/04/17 13:16 Methylprednisolone (Solu-Medrol) 60 mg IV Q6 [facility] Last Admin: 09/03/17 09:19 Dose: 60 mg Metoprolol Succinate (Toprol Xl) 25 mg PO DAILY [facility] Last Admin: 09/03/17 09:20 Dose: 25 mg Multivitamins/Minerals (Therapeutic-M Tab) 1 tab PO DAILY [facility] Last Admin: 09/03/17 09:19 Dose: 1 tab Octreotide Acetate (Sandostatin) 100 mcg SC Q12 [facility] Last Admin: 09/03/17 13:11 Dose: 100 mcg Pantoprazole Sodium (Protonix Ec Tab) 40 mg PO DAILY [facility] Last Admin: 09/03/17 09:15 Dose: 40 mg Fluticasone/Salmeterol (Advair Diskus 250/50) 1 puff IH Q12H [facility] Last Admin: 09/03/17 09:14 Dose: 1 puff Sodium Bicarbonate (Sodium Bicarbonate Tab) 650 mg PO Q12 [facility] Last Admin: 09/03/17 09:19 Dose: 650 mg Ticagrelor (Brilinta) 180 mg PO ONCE ONE Stop: 09/03/17 14:01 Trazodone HCl (Desyrel) 100 mg PO [facility] Last Admin: 09/03/17 00:30 Dose: Not Given Zolpidem Tartrate (Ambien) 5 mg PO [facility] Last Admin: 09/03/17 00:30 Dose: Not Given Physical Exam - Respiratory Exam Respiratory Exam: Decreased Breath Sounds - Cardiovascular Exam Cardiovascular Exam: REGULAR RHYTHM, +S1, +S2 - Extremities Exam Additional comments: NO LE EDEMA - Additional Findings Additional findings: EKG YESTERDAY NSR REPEAT EKG TODAY, NSR, NEW DEEP COVING OF THE T WAVES IN LIMB LEADS 2,3 AND F WELL CHEST LEADS V2 TO V6, AND NEW 1-[address] SEGMENT ELEVATIONS IN THE CHEST LEADS AND ABOUT [address] SEGMENT ELEVATIONS IN LIMB LEAD 2 TROPONIN # 1 ELEVATED AT 1.11 Results - Vital Signs Recent Vital Signs: Last Vital Signs Temp 97.7 F 09/03/17 12:00 Pulse 67 09/03/17 12:00 Resp 18 09/03/17 12:00 BP 145/88 09/03/17 12:00 Pulse Ox 99 09/03/17 12:00 - Labs Result Diagrams: 09/03/17 07:28 09/03/17 07:28 Labs: Laboratory Results - last 24 hr 09/02/17 09/02/17 09/02/17 16:52 16:52 17:08 WBC 8.7 RBC 4.79 Hgb 15.5 D Hct 46.8 MCV 97.7 D MCH 32.5 H MCHC 33.2 RDW 13.6 Plt Count 214 MPV 7.1 L Neut % (Auto) 76.0 H Lymph % (Auto) 15.2 L [place] % (Auto) 8.1 Eos % (Auto) 0.3 Baso % (Auto) 0.4 Neut # (Auto) 6.6 Lymph # (Auto) 1.3 [place] # (Auto) 0.7 Eos # (Auto) 0.0 Baso # (Auto) 0.0 pCO2 pO2 HCO3 ABG pH ABG Total CO2 ABG O2 Saturation ABG Base Excess Jonatan Test ABG Potassium A-a O2 Difference Glucose Lactate Vent Mode FiO2 Sodium 130 L Potassium 4.1 Chloride 93 L Carbon Dioxide 24 Anion Gap 17 BUN 8 Creatinine 0.8 Est GFR ( Amer) > 60 Est GFR (Non-Af Amer) > 60 Random Glucose 119 H Calcium 9.8 Total Bilirubin 0.6 AST 37 H ALT 35 Alkaline Phosphatase 94 Troponin I Total Protein 7.7 Albumin 4.2 Globulin 3.5 Albumin/Globulin Ratio 1.2 Triglycerides Cholesterol LDL Cholesterol Direct HDL Cholesterol Vitamin B12 Thyroxine (T4) Total T3 Arterial Blood Potassium Urine Color Urine Clarity Urine pH Ur Specific [place] Urine Protein Urine Glucose (UA) Urine Ketones Urine Blood Urine Nitrate Urine Bilirubin Urine Urobilinogen Ur Leukocyte Esterase Urine RBC (Auto) Urine Microscopic WBC Amorphous Sediment Influenza Typ A,B (EIA) Negative for flu a/b 09/02/17 09/02/17 09/03/17 18:03 19:01 07:20 WBC RBC Hgb Hct MCV MCH MCHC RDW Plt Count MPV Neut % (Auto) Lymph % (Auto) [place] % (Auto) Eos % (Auto) Baso % (Auto) Neut # (Auto) Lymph # (Auto) [place] # (Auto) Eos # (Auto) Baso # (Auto) pCO2 42 pO2 57 L HCO3 26.0 ABG pH 7.41 ABG Total CO2 27.9 ABG O2 Saturation 95.5 ABG Base Excess 1.7 Jonatan Test Yes ABG Potassium 4.1 A-a O2 Difference 176.0 Glucose 138 H Lactate 1.3 Vent Mode High flow lpm FiO2 40.0 Sodium 127.0 L Potassium Chloride 96.0 L Carbon Dioxide Anion Gap BUN Creatinine Est GFR ( Amer) Est GFR (Non-Af Amer) Random Glucose Calcium Total Bilirubin AST ALT Alkaline Phosphatase Troponin I 1.1100 H* Total Protein Albumin Globulin Albumin/Globulin Ratio Triglycerides Cholesterol LDL Cholesterol Direct HDL Cholesterol Vitamin B12 Thyroxine (T4) Total T3 Arterial Blood Potassium 4.1 Urine Color Yellow Urine Clarity Clear Urine pH 7.0 Ur Specific [place] 1.005 Urine Protein 100 Urine Glucose (UA) Neg Urine Ketones Negative Urine Blood Small Urine Nitrate Negative Urine Bilirubin Negative Urine Urobilinogen 0.2-1.0 Ur Leukocyte Esterase Neg Urine RBC (Auto) 1 Urine Microscopic WBC 2 Amorphous Sediment Rare H Influenza Typ A,B (EIA) 09/03/17 09/03/17 09/03/17 07:28 07:28 07:28 WBC 5.4 RBC 4.28 Hgb 13.9 Hct 41.4 MCV 96.8 MCH 32.6 H MCHC 33.7 RDW 13.1 Plt Count 183 MPV 7.8 Neut % (Auto) 81.5 H Lymph % (Auto) 13.6 L [place] % (Auto) 4.6 Eos % (Auto) 0.0 Baso % (Auto) 0.3 Neut # (Auto) 4.4 Lymph # (Auto) 0.7 L [place] # (Auto) 0.3 Eos # (Auto) 0.0 Baso # (Auto) 0.0 pCO2 pO2 HCO3 ABG pH ABG Total CO2 ABG O2 Saturation ABG Base Excess Jonatan Test ABG Potassium A-a O2 Difference Glucose Lactate Vent Mode FiO2 Sodium 133 Potassium 4.5 Chloride 93 L Carbon Dioxide 25 Anion Gap 20 BUN 12 Creatinine 0.8 Est GFR ( Amer) > 60 Est GFR (Non-Af Amer) > 60 Random Glucose 138 H Calcium 9.6 Total Bilirubin 0.4 AST 45 H D ALT 38 Alkaline Phosphatase 72 Troponin I Total Protein 6.7 Albumin 3.6 Globulin 3.1 Albumin/Globulin Ratio 1.2 Triglycerides 66 D Cholesterol 102 LDL Cholesterol Direct 48 HDL Cholesterol 34 Vitamin B12 > 1000 H Thyroxine (T4) 8.43 Total T3 0.634 L Arterial Blood Potassium Urine Color Urine Clarity Urine pH Ur Specific [place] Urine Protein Urine Glucose (UA) Urine Ketones Urine Blood Urine Nitrate Urine Bilirubin Urine Urobilinogen Ur Leukocyte Esterase Urine RBC (Auto) Urine Microscopic WBC Amorphous Sediment Influenza Typ A,B (EIA) Assessment & Plan - Assessment and Plan (Free Text) Assessment: ACUTE STEMI INVOLVING THE ANTERIOR WALL AND POSSIBLY THE INFERIOR WALL ALSO WITH ELEVATED FIRST TROPONIN AND THE EKG CHANGES ARE NEW FROM THE FIRST EKG DONE YESTERDAY HYPERTENSION COPD Plan: DR TINAJERO AND DR SANCHEZ WERE CALLED AND WE ALL AGREED THAT THE PATIENT SHOULD BE TRANSFERRED HAILY FOR A CARDIAC CATH TO SEE IF SHE NEED STENT(S) INSERTION OR EVEN CABGS DR Abigail VANG WAS CALLED AND HE WILL DO A CARDIAC CATH AND AGREES THAT IT MUST BE DONE TODAY AND HE WILL ARRANGE FOR A TRANSFER TO ANOTHER FACILITY THAT CAN DO A CARDIAC CATH THE PATIENT IS AGREEABLE AND HER BROTHER WHO WAS AT THE BEDSIDE AGREES THE PATIENT IS ON O2, METOPROLOL, ASPIRIN, ATORVASTATIN AND THERAPEUTIC DOSE LOVENOX A SECOND TROPONIN WAS ORDERED IV NTG WAS STARTED AND SHE WAS GIVEN [place] PER DR VANG SHE WAS TRANSFERRED TO THE ICU UNTIL SHE IS TRANSFERRED FOR A CARDIAC CATH
--- NOTE | 2017-09-03 14:51 | CP.CCUPN ---
CCU Subjective - Physician Review Subjective (Free Text): [employer] PROGRESS NOTE Patient examined, bloodwork and interim events reviewed: 67F with PMH COPD / smoker, HTN and anxiety disorder, transferred to ICU this AM [place] [facility] [place]. Patient had chest discomfort associated with SOB this AM prompting an EKG and cardiac enzyme eval which revealed diffuse, near-symmetrical T inversions in inferior and anterolateral leads, and with mild ST elevations V3-V4; and Trop level of 1.11. She is awake and alert, denies any increase in chest discomfort, nausea, palpitations diaphoresis nor radiation of discomfort. Other vitals and I/O s reviewed: afebrile, no fever spikes since admission. Allergies: Sulfa Meds: ProAir, Flonase, Budesonide, Xanax, CaCO3, D3, Toprol XL, Sandostatin, Omeprazole, YANG HCO3, Desyrel, Ambien. ROS: No other pertinent negs or positives on 10+ system review. PMSFH: All other Nursing and physician documentation reviewed to date; no new pertinent info noted relevant to current medical problems. LABS: WBC= 5.4 HGB= 13.9 PLTs= 183K Na= 133 K= 4.5 HCO3=25 CL= 93 BUN/Cr= 12/0.8 BS= 138 IMPRESSION / MAJOR PROBLEMS NOW: 1. ACS with Acute NSTEMI 2. COPD Exacerbation 3. 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 PLAN: 1. ASA, Ticagrelor loading, statin, BBs; and started on nitrates as per Cardio. 2. Has been on IV steroids Q6H Solumedrol, consider decreasing dosage to 40mg Q12h for now, Duonebs for any breakthrough wheezing. 3. Empiric abx coverage noted. 4. Hold Trazedone. CCU Objective - Vital Signs / Intake & Output Vital Signs (Last 4 hours): Vital Signs Temp Pulse Resp BP Pulse Ox 09/03/17 14:27 68 24 163/87 H 99 09/03/17 14:00 71 35 H 172/84 H 97 09/03/17 13:35 97.7 F 71 18 153/95 H 100 09/03/17 12:00 97.7 F 67 18 145/88 99 Intake and Output (Last 8hrs): Intake & Output 09/02/17 09/03/17 09/03/17 22:59 06:59 14:59 Weight 119 lb - Physical Exam Head: Positive for: Normocephalic Pupils: Positive for: PERRL Extroacular Muscles: Positive for: EOMI Conjunctiva: Positive for: Normal. Negative for: Icteric Mouth: Positive for: Moist Mucous Membranes Neck: Negative for: JVD Respiratory/Chest: Positive for: Clear to Auscultation, Decreased Breath Sounds Cardiovascular: Positive for: Regular Rate and Rhythm, Normal S1, S2. Negative for: Murmurs, Rub Abdomen: Positive for: Normal Bowel Sounds. Negative for: Tenderness, Distention, Mass/Organomegaly Lower Extremity: Positive for: NORMAL PULSES, Capillary Refill < 2 s. Negative for: CALF TENDERNESS, Cyanosis Neurological: Positive for: GCS=15, CN II-XII Intact, Motor Func Grossly Intact , Normal Sensory Function Skin: Positive for: Warm, Dry. Negative for: Rashes Psychiatric: Positive for: Alert, Oriented x 3 - Medications Active Medications: Active Medications Generic Name Dose Route Start Last Admin Trade Name Freq PRN Reason Stop Dose Admin Acetylcysteine 2 ml 09/03/17 20:00 Acetylcysteine 20% INH RBID ALCON Albuterol/Ipratropium 3 ml 09/03/17 12:00 Duoneb 3 Mg/0.5 Mg (3 Ml) Ud INH RQ4 [facility] Alprazolam 0.5 mg 09/02/17 21:07 09/03/17 09:33 Xanax PO 0.5 mg DAILY PRN Administration Anxiety Alprazolam 0.5 mg 09/02/17 22:00 09/02/17 23:15 Xanax PO 0.5 mg HS ALCON Administration Aspirin 325 mg 09/04/17 09:00 Aspirin PO DAILY [facility] Atorvastatin Calcium 20 mg 09/03/17 12:00 09/03/17 14:02 Lipitor PO 20 mg DAILY [facility] Administration Calcium/Vitamin D 1 tab 09/03/17 09:00 09/03/17 09:15 Oyster Shell Calcium/Vitamin D 500 Mg-200 Iu PO 1 tab DAILY [facility] Administration Cyanocobalamin 1,000 mcg 09/02/17 21:15 09/02/17 23:16 Vitamin B12 1000 Mcg/Ml Inj IM 1,000 mcg Q14D [facility] Administration Enoxaparin Sodium 50 mg 09/03/17 09:45 09/03/17 13:00 Lovenox SC 50 mg Q12 [facility] Administration Protocol Ergocalciferol 1 cap 09/08/17 21:07 Drisdol 50,000 Intl Units Cap PO MO [facility]CON Fluticasone Propionate 2 spr 09/02/17 21:07 Flonase PRATIBHA HS PRN Allergy symptoms Ceftriaxone Sodium 1 gm/ 100 mls @ 100 mls/hr 09/03/17 16:00 Sodium Chloride IVPB DAILY@1600 [facility] Protocol Azithromycin 500 mg/ Sodium 250 mls @ 250 mls/hr 09/03/17 18:00 Chloride IVPB DAILY@1800 [facility] Protocol Nitroglycerin/Dextrose 50 mg in 250 mls @ 1.5 mls/hr 09/03/17 13:17 09/03/17 14:00 Nitroglycerin 50 Mg/250 Ml D5w IV 09/04/17 13:16 1.5 mls/hr .Q24H ONE Administration Protocol 5 MCG/MIN Methylprednisolone 60 mg 09/02/17 22:00 09/03/17 09:19 Solu-Medrol IV 60 mg Q6 [facility] Administration Metoprolol Succinate 25 mg 09/03/17 09:00 09/03/17 09:20 Toprol Xl PO 25 mg DAILY [facility] Administration Multivitamins/Minerals 1 tab 09/03/17 09:00 09/03/17 09:19 Therapeutic-M Tab PO 1 tab DAILY [facility] Administration Octreotide Acetate 100 mcg 09/03/17 09:00 09/03/17 13:11 Sandostatin SC 100 mcg Q12 [facility] Administration Pantoprazole Sodium 40 mg 09/03/17 09:00 09/03/17 09:15 Protonix Ec Tab PO 40 mg DAILY [facility] Administration Fluticasone/Salmeterol 1 puff 09/02/17 21:45 09/03/17 09:14 Advair Diskus 250/50 IH 1 puff Q12H [facility] Administration Sodium Bicarbonate 650 mg 09/03/17 09:00 09/03/17 09:19 Sodium Bicarbonate Tab PO 650 mg Q12 [facility] Administration Trazodone HCl 100 mg 09/02/17 22:00 09/03/17 00:30 Desyrel PO Not Given HS ALCON Zolpidem Tartrate 5 mg 09/02/17 22:00 09/03/17 00:30 Ambien PO Not Given HS ALCON - Patient Studies Lab Studies: Lab Studies 09/03/17 09/03/17 09/03/17 Range/Units 07:28 07:28 07:28 WBC 5.4 (4.8-10.8) K/uL RBC 4.28 (3.80-5.20) Mil/uL Hgb 13.9 (12.0-16.0) g/dL Hct 41.4 (34.0-47.0) % MCV 96.8 (81.0-99.0) fl MCH 32.6 H (27.0-31.0) pg MCHC 33.7 (33.0-37.0) g/dL RDW 13.1 (11.5-14.5) % Plt Count 183 (130-400) K/uL MPV 7.8 (7.2-11.7) fl Neut % (Auto) 81.5 H (50.0-75.0) % Lymph % (Auto) 13.6 L (20.0-40.0) % Harris % (Auto) 4.6 (0.0-10.0) % Eos % (Auto) 0.0 (0.0-4.0) % Baso % (Auto) 0.3 (0.0-2.0) % Neut # (Auto) 4.4 (1.8-7.0) K/uL Lymph # (Auto) 0.7 L (1.0-4.3) K/uL Harris # (Auto) 0.3 (0.0-0.8) K/uL Eos # (Auto) 0.0 (0.0-0.7) K/uL Baso # (Auto) 0.0 (0.0-0.2) K/uL pCO2 (35-45) mm/Hg pO2 (80-100) mm/Hg HCO3 (21-28) mmol/L ABG pH (7.35-7.45) ABG Total CO2 (22-28) mmol/L ABG O2 Saturation (95-98) % ABG Base Excess (-2.0-3.0) mmol/L Jonatan Test ABG Potassium (3.6-5.2) mmol/L A-a O2 Difference mm/Hg Glucose (65-105) mg/dL Lactate (0.7-2.1) mmol/L Vent Mode FiO2 % Sodium 133 (132-148) mmol/l Potassium 4.5 (3.6-5.0) MMOL/L Chloride 93 L (98-107) mmol/L Carbon Dioxide 25 (22-30) mmol/L Anion Gap 20 (10-20) BUN 12 (7-17) mg/dl Creatinine 0.8 (0.7-1.2) mg/dl Est GFR ( Amer) > 60 Est GFR (Non-Af Amer) > 60 Random Glucose 138 H (65-105) mg/dL Calcium 9.6 (8.4-10.2) mg/dL Total Bilirubin 0.4 (0.2-1.3) mg/dl AST 45 H D (14-36) U/L ALT 38 (9-52) U/L Alkaline Phosphatase 72 (38-126) U/L Troponin I (0.00-0.120) ng/mL Total Protein 6.7 (6.3-8.2) G/DL Albumin 3.6 (3.5-5.0) g/dL Globulin 3.1 (2.2-3.9) gm/dL Albumin/Globulin Ratio 1.2 (1.0-2.1) Triglycerides 66 D (0-149) mg/DL Cholesterol 102 (0-199) mg/dL LDL Cholesterol Direct 48 (0-129) mg/dL HDL Cholesterol 34 (30-70) MG/DL Vitamin B12 > 1000 H (239-931) pg/mL Thyroxine (T4) 8.43 (5.5-11.0) ug/dl Total T3 0.634 L (1.49-2.60) nmol/L Arterial Blood Potassium (3.6-5.2) mmol/L Urine Color (YELLOW) Urine Clarity (Clear) Urine pH (5.0-8.0) Ur Specific [place] (1.003-1.030) Urine Protein (NEGATIVE) mg/dL Urine Glucose (UA) (Normal) mg/dL Urine Ketones (NEGATIVE) mg/dL Urine Blood (NEGATIVE) Urine Nitrate (NEGATIVE) Urine Bilirubin (NEGATIVE) Urine Urobilinogen (0.2-1.0) mg/dL Ur Leukocyte Esterase (Negative) Vasu/uL Urine RBC (Auto) (0-3) /hpf Urine Microscopic WBC (0-5) /hpf Amorphous Sediment (<OCC) /ul Influenza Typ A,B (EIA) (NEGATIVE) 09/03/17 09/02/17 09/02/17 Range/Units 07:20 19:01 18:03 WBC (4.8-10.8) K/uL RBC (3.80-5.20) Mil/uL Hgb (12.0-16.0) g/dL Hct (34.0-47.0) % MCV (81.0-99.0) fl MCH (27.0-31.0) pg MCHC (33.0-37.0) g/dL RDW (11.5-14.5) % Plt Count (130-400) K/uL MPV (7.2-11.7) fl Neut % (Auto) (50.0-75.0) % Lymph % (Auto) (20.0-40.0) % Harris % (Auto) (0.0-10.0) % Eos % (Auto) (0.0-4.0) % Baso % (Auto) (0.0-2.0) % Neut # (Auto) (1.8-7.0) K/uL Lymph # (Auto) (1.0-4.3) K/uL Harris # (Auto) (0.0-0.8) K/uL Eos # (Auto) (0.0-0.7) K/uL Baso # (Auto) (0.0-0.2) K/uL pCO2 42 (35-45) mm/Hg pO2 57 L (80-100) mm/Hg HCO3 26.0 (21-28) mmol/L ABG pH 7.41 (7.35-7.45) ABG Total CO2 27.9 (22-28) mmol/L ABG O2 Saturation 95.5 (95-98) % ABG Base Excess 1.7 (-2.0-3.0) mmol/L Jonatan Test Yes ABG Potassium 4.1 (3.6-5.2) mmol/L A-a O2 Difference 176.0 mm/Hg Glucose 138 H (65-105) mg/dL Lactate 1.3 (0.7-2.1) mmol/L Vent Mode High flow lpm FiO2 40.0 % Sodium 127.0 L (132-148) mmol/l Potassium (3.6-5.0) MMOL/L Chloride 96.0 L (98-107) mmol/L Carbon Dioxide (22-30) mmol/L Anion Gap (10-20) BUN (7-17) mg/dl Creatinine (0.7-1.2) mg/dl Est GFR ( Amer) Est GFR (Non-Af Amer) Random Glucose (65-105) mg/dL Calcium (8.4-10.2) mg/dL Total Bilirubin (0.2-1.3) mg/dl AST (14-36) U/L ALT (9-52) U/L Alkaline Phosphatase (38-126) U/L Troponin I 1.1100 H* (0.00-0.120) ng/mL Total Protein (6.3-8.2) G/DL Albumin (3.5-5.0) g/dL Globulin (2.2-3.9) gm/dL Albumin/Globulin Ratio (1.0-2.1) Triglycerides (0-149) mg/DL Cholesterol (0-199) mg/dL LDL Cholesterol Direct (0-129) mg/dL HDL Cholesterol (30-70) MG/DL Vitamin B12 (239-931) pg/mL Thyroxine (T4) (5.5-11.0) ug/dl Total T3 (1.49-2.60) nmol/L Arterial Blood Potassium 4.1 (3.6-5.2) mmol/L Urine Color Yellow (YELLOW) Urine Clarity Clear (Clear) Urine pH 7.0 (5.0-8.0) Ur Specific [place] 1.005 (1.003-1.030) Urine Protein 100 (NEGATIVE) mg/dL Urine Glucose (UA) Neg (Normal) mg/dL Urine Ketones Negative (NEGATIVE) mg/dL Urine Blood Small (NEGATIVE) Urine Nitrate Negative (NEGATIVE) Urine Bilirubin Negative (NEGATIVE) Urine Urobilinogen 0.2-1.0 (0.2-1.0) mg/dL Ur Leukocyte Esterase Neg (Negative) Vasu/uL Urine RBC (Auto) 1 (0-3) /hpf Urine Microscopic WBC 2 (0-5) /hpf Amorphous Sediment Rare H (<OCC) /ul Influenza Typ A,B (EIA) (NEGATIVE) 09/02/17 09/02/17 09/02/17 Range/Units 17:08 16:52 16:52 WBC 8.7 (4.8-10.8) K/uL RBC 4.79 (3.80-5.20) Mil/uL Hgb 15.5 D (12.0-16.0) g/dL Hct 46.8 (34.0-47.0) % MCV 97.7 D (81.0-99.0) fl MCH 32.5 H (27.0-31.0) pg MCHC 33.2 (33.0-37.0) g/dL RDW 13.6 (11.5-14.5) % Plt Count 214 (130-400) K/uL MPV 7.1 L (7.2-11.7) fl Neut % (Auto) 76.0 H (50.0-75.0) % Lymph % (Auto) 15.2 L (20.0-40.0) % Harris % (Auto) 8.1 (0.0-10.0) % Eos % (Auto) 0.3 (0.0-4.0) % Baso % (Auto) 0.4 (0.0-2.0) % Neut # (Auto) 6.6 (1.8-7.0) K/uL Lymph # (Auto) 1.3 (1.0-4.3) K/uL Harris # (Auto) 0.7 (0.0-0.8) K/uL Eos # (Auto) 0.0 (0.0-0.7) K/uL Baso # (Auto) 0.0 (0.0-0.2) K/uL pCO2 (35-45) mm/Hg pO2 (80-100) mm/Hg HCO3 (21-28) mmol/L ABG pH (7.35-7.45) ABG Total CO2 (22-28) mmol/L ABG O2 Saturation (95-98) % ABG Base Excess (-2.0-3.0) mmol/L Jonatan Test ABG Potassium (3.6-5.2) mmol/L A-a O2 Difference mm/Hg Glucose (65-105) mg/dL Lactate (0.7-2.1) mmol/L Vent Mode FiO2 % Sodium 130 L (132-148) mmol/l Potassium 4.1 (3.6-5.0) MMOL/L Chloride 93 L (98-107) mmol/L Carbon Dioxide 24 (22-30) mmol/L Anion Gap 17 (10-20) BUN 8 (7-17) mg/dl Creatinine 0.8 (0.7-1.2) mg/dl Est GFR ( Amer) > 60 Est GFR (Non-Af Amer) > 60 Random Glucose 119 H (65-105) mg/dL Calcium 9.8 (8.4-10.2) mg/dL Total Bilirubin 0.6 (0.2-1.3) mg/dl AST 37 H (14-36) U/L ALT 35 (9-52) U/L Alkaline Phosphatase 94 (38-126) U/L Troponin I (0.00-0.120) ng/mL Total Protein 7.7 (6.3-8.2) G/DL Albumin 4.2 (3.5-5.0) g/dL Globulin 3.5 (2.2-3.9) gm/dL Albumin/Globulin Ratio 1.2 (1.0-2.1) Triglycerides (0-149) mg/DL Cholesterol (0-199) mg/dL LDL Cholesterol Direct (0-129) mg/dL HDL Cholesterol (30-70) MG/DL Vitamin B12 (239-931) pg/mL Thyroxine (T4) (5.5-11.0) ug/dl Total T3 (1.49-2.60) nmol/L Arterial Blood Potassium (3.6-5.2) mmol/L Urine Color (YELLOW) Urine Clarity (Clear) Urine pH (5.0-8.0) Ur Specific [place] (1.003-1.030) Urine Protein (NEGATIVE) mg/dL Urine Glucose (UA) (Normal) mg/dL Urine Ketones (NEGATIVE) mg/dL Urine Blood (NEGATIVE) Urine Nitrate (NEGATIVE) Urine Bilirubin (NEGATIVE) Urine Urobilinogen (0.2-1.0) mg/dL Ur Leukocyte Esterase (Negative) Vasu/uL Urine RBC (Auto) (0-3) /hpf Urine Microscopic WBC (0-5) /hpf Amorphous Sediment (<OCC) /ul Influenza Typ A,B (EIA) Negative for flu a/b (NEGATIVE) Laboratory Results - last 24 hr 09/02/17 09/02/17 09/02/17 16:52 16:52 17:08 WBC 8.7 RBC 4.79 Hgb 15.5 D Hct 46.8 MCV 97.7 D MCH 32.5 H MCHC 33.2 RDW 13.6 Plt Count 214 MPV 7.1 L Neut % (Auto) 76.0 H Lymph % (Auto) 15.2 L Harris % (Auto) 8.1 Eos % (Auto) 0.3 Baso % (Auto) 0.4 Neut # (Auto) 6.6 Lymph # (Auto) 1.3 Harris # (Auto) 0.7 Eos # (Auto) 0.0 Baso # (Auto) 0.0 pCO2 pO2 HCO3 ABG pH ABG Total CO2 ABG O2 Saturation ABG Base Excess Jonatan Test ABG Potassium A-a O2 Difference Glucose Lactate Vent Mode FiO2 Sodium 130 L Potassium 4.1 Chloride 93 L Carbon Dioxide 24 Anion Gap 17 BUN 8 Creatinine 0.8 Est GFR ( Amer) > 60 Est GFR (Non-Af Amer) > 60 Random Glucose 119 H Calcium 9.8 Total Bilirubin 0.6 AST 37 H ALT 35 Alkaline Phosphatase 94 Troponin I Total Protein 7.7 Albumin 4.2 Globulin 3.5 Albumin/Globulin Ratio 1.2 Triglycerides Cholesterol LDL Cholesterol Direct HDL Cholesterol Vitamin B12 Thyroxine (T4) Total T3 Arterial Blood Potassium Urine Color Urine Clarity Urine pH Ur Specific [place] Urine Protein Urine Glucose (UA) Urine Ketones Urine Blood Urine Nitrate Urine Bilirubin Urine Urobilinogen Ur Leukocyte Esterase Urine RBC (Auto) Urine Microscopic WBC Amorphous Sediment Influenza Typ A,B (EIA) Negative for flu a/b 09/02/17 09/02/17 09/03/17 18:03 19:01 07:20 WBC RBC Hgb Hct MCV MCH MCHC RDW Plt Count MPV Neut % (Auto) Lymph % (Auto) Harris % (Auto) Eos % (Auto) Baso % (Auto) Neut # (Auto) Lymph # (Auto) Harris # (Auto) Eos # (Auto) Baso # (Auto) pCO2 42 pO2 57 L HCO3 26.0 ABG pH 7.41 ABG Total CO2 27.9 ABG O2 Saturation 95.5 ABG Base Excess 1.7 Jonatan Test Yes ABG Potassium 4.1 A-a O2 Difference 176.0 Glucose 138 H Lactate 1.3 Vent Mode High flow lpm FiO2 40.0 Sodium 127.0 L Potassium Chloride 96.0 L Carbon Dioxide Anion Gap BUN Creatinine Est GFR ( Amer) Est GFR (Non-Af Amer) Random Glucose Calcium Total Bilirubin AST ALT Alkaline Phosphatase Troponin I 1.1100 H* Total Protein Albumin Globulin Albumin/Globulin Ratio Triglycerides Cholesterol LDL Cholesterol Direct HDL Cholesterol Vitamin B12 Thyroxine (T4) Total T3 Arterial Blood Potassium 4.1 Urine Color Yellow Urine Clarity Clear Urine pH 7.0 Ur Specific [place] 1.005 Urine Protein 100 Urine Glucose (UA) Neg Urine Ketones Negative Urine Blood Small Urine Nitrate Negative Urine Bilirubin Negative Urine Urobilinogen 0.2-1.0 Ur Leukocyte Esterase Neg Urine RBC (Auto) 1 Urine Microscopic WBC 2 Amorphous Sediment Rare H Influenza Typ A,B (EIA) 09/03/17 09/03/17 09/03/17 07:28 07:28 07:28 WBC 5.4 RBC 4.28 Hgb 13.9 Hct 41.4 MCV 96.8 MCH 32.6 H MCHC 33.7 RDW 13.1 Plt Count 183 MPV 7.8 Neut % (Auto) 81.5 H Lymph % (Auto) 13.6 L Harris % (Auto) 4.6 Eos % (Auto) 0.0 Baso % (Auto) 0.3 Neut # (Auto) 4.4 Lymph # (Auto) 0.7 L Harris # (Auto) 0.3 Eos # (Auto) 0.0 Baso # (Auto) 0.0 pCO2 pO2 HCO3 ABG pH ABG Total CO2 ABG O2 Saturation ABG Base Excess Jonatan Test ABG Potassium A-a O2 Difference Glucose Lactate Vent Mode FiO2 Sodium 133 Potassium 4.5 Chloride 93 L Carbon Dioxide 25 Anion Gap 20 BUN 12 Creatinine 0.8 Est GFR ( Amer) > 60 Est GFR (Non-Af Amer) > 60 Random Glucose 138 H Calcium 9.6 Total Bilirubin 0.4 AST 45 H D ALT 38 Alkaline Phosphatase 72 Troponin I Total Protein 6.7 Albumin 3.6 Globulin 3.1 Albumin/Globulin Ratio 1.2 Triglycerides 66 D Cholesterol 102 LDL Cholesterol Direct 48 HDL Cholesterol 34 Vitamin B12 > 1000 H Thyroxine (T4) 8.43 Total T3 0.634 L Arterial Blood Potassium Urine Color Urine Clarity Urine pH Ur Specific [place] Urine Protein Urine Glucose (UA) Urine Ketones Urine Blood Urine Nitrate Urine Bilirubin Urine Urobilinogen Ur Leukocyte Esterase Urine RBC (Auto) Urine Microscopic WBC Amorphous Sediment Influenza Typ A,B (EIA) EKG/Cardiology Studies: See above Review of Systems - Review of Systems All systems: reviewed and no additional remarkable complaints except (as above) Critical Care Progress Note - Nutrition Nutrition: Nutrition Category Date Time Status NPO Diet [DIET] Diets 09/03/17 Lunch Active
[2017-09-03] MEDS: Albuterol-Ipratrop 3 mg / 0.5 (3 ml) UD INH SCH ×2 (15:40→19:38)
[2017-09-03] MEDS: Acetylcysteine 20% Inhal Soln (4ml) INH SCH (19:38)
[2017-09-03] MEDS ORDERED: HYDROmorphone 0.5 mg/0.5 ml ISec IVP STA (23:22)
[2017-09-04] MEDS: MethylPREDNISolone 40 mg Vial IV SCH ×3 (00:26→20:53)
[2017-09-04] MEDS: Albuterol-Ipratrop 3 mg / 0.5 (3 ml) UD INH SCH ×7 (00:29→19:37)
[2017-09-04] MEDS: Azithromycin 500 MG in Sodium Chloride 0.9% 250 ML IVPB SCH ×2 (02:55→17:04)
[2017-09-04 05:38] LABS: ABG ALLEN TEST YES; ARTERIAL BLOOD GAS HCO3 25.7 mmol/L (21-28); ARTERIAL BLOOD GAS HEMOGLOBIN 12.7 g/dL (11.7-17.4); ARTERIAL BLOOD GAS O2 CAPACITY 17.3 mL/dL (16-24); ARTERIAL BLOOD GAS O2 SAT 98.2 % (95-98); ARTERIAL BLOOD GAS PCO2 37 mm/Hg (35-45); ARTERIAL BLOOD GAS PH 7.44 (7.35-7.45); ARTERIAL BLOOD GAS PO2 83 mm/Hg (80-100); ARTERIAL BLOOD GAS TCO2 26.2 mmol/L (22-28)
[2017-09-04 05:55] LABS: HEMOGLOBIN 12.1 g/dL (12.0-16.0); MEAN CELL VOLUME 96.2 fl (81.0-99.0); MEAN CORPUSCULAR HEMOGLOBIN 32.2 pg (27.0-31.0); MEAN CORPUSCULAR HGB CONC 33.5 g/dL (33.0-37.0); RBC 3.75 Mil/uL (3.80-5.20); RED CELL DISTRIBUTION WIDTH 13.3 % (11.5-14.5); WHITE BLOOD COUNT 15.3 K/uL (4.8-10.8)
[2017-09-04 06:45] LABS: BLOOD UREA NITROGEN 19 mg/dl (7-17); CALCIUM 8.8 mg/dL (8.4-10.2); GFR AFRICAN-AMERICAN > 60; GFR NON-AFRICAN AMERICAN > 60
[2017-09-04] MEDS: Acetylcysteine 20% Inhal Soln (4ml) INH SCH ×2 (08:04→19:37)
[2017-09-04] MEDS: Pantoprazole 40 mg EC Tab PO SCH (08:41)
[2017-09-04] MEDS: Calcium-Vit D 500 mg-200 Units Tab UD PO SCH (08:42)
[2017-09-04] MEDS: Multivitamin With Minerals Tab PO SCH (08:42)
[2017-09-04] MEDS: Enoxaparin 60 mg Syringe SC SCH ×2 (08:44→20:54)
[2017-09-04] MEDS: Fluticasone-Salmeterol 250-50mcg Diskus IH SCH ×2 (08:45→20:52)
--- NOTE | 2017-09-04 08:52 | CP.PCM.PN ---
Subjective - Date & Time of Evaluation Date of Evaluation: 09/04/17 Time of Evaluation: 07:10 - Subjective Subjective: Patient evaluated with Dr Munson during rounds. Feeling better, CP resolved. Still SOB but improving. S/P Cardiac cath Yesterday. Objective - Vital Signs/Intake and Output Vital Signs (last 24 hours): Temp Pulse Resp BP Pulse Ox 97.9 F 76 15 112/62 99 09/04/17 08:00 09/04/17 08:00 09/04/17 08:05 09/04/17 08:00 09/04/17 08:00 - Medications Medications: Current Medications Acetylcysteine (Acetylcysteine 20%) 2 ml INH RBID [facility] Last Admin: 09/04/17 08:04 Dose: 2 ml Albuterol/Ipratropium (Duoneb 3 Mg/0.5 Mg (3 Ml) Ud) 3 ml INH RQ4 [facility] Last Admin: 09/04/17 08:05 Dose: 3 ml Alprazolam (Xanax) 0.5 mg PO DAILY PRN PRN Reason: Anxiety Last Admin: 09/03/17 09:33 Dose: 0.5 mg Alprazolam (Xanax) 0.5 mg PO HS [facility] Last Admin: 09/03/17 23:21 Dose: 0.5 mg Aspirin (Ecotrin) 81 mg PO DAILY [facility] Atorvastatin Calcium (Lipitor) 20 mg PO DAILY [facility] Last Admin: 09/04/17 08:42 Dose: 20 mg Calcium/Vitamin D (Oyster Shell Calcium/Vitamin D 500 Mg-200 Iu) 1 tab PO DAILY [facility] Last Admin: 09/04/17 08:42 Dose: 1 tab Clopidogrel Bisulfate (Plavix) 75 mg PO DAILY [facility] Cyanocobalamin (Vitamin B12 1000 Mcg/Ml Inj) 1,000 mcg IM Q14D [facility] Last Admin: 09/02/17 23:16 Dose: 1,000 mcg Enoxaparin Sodium (Lovenox) 50 mg SC Q12 [facility] PRN Reason: Protocol Last Admin: 09/04/17 08:44 Dose: 50 mg Ergocalciferol (Drisdol 50,000 Intl Units Cap) 1 cap PO MO [facility] Fluticasone Propionate (Flonase) 2 spr PRATIBHA HS PRN PRN Reason: Allergy symptoms Ceftriaxone Sodium 1 gm/ (Sodium Chloride) 100 mls @ 100 mls/hr IVPB DAILY@ 1600 [facility] PRN Reason: Protocol Last Admin: 09/04/17 02:56 Dose: 100 mls/hr Azithromycin 500 mg/ Sodium (Chloride) 250 mls @ 250 mls/hr IVPB DAILY@1800 [facility] PRN Reason: Protocol Last Admin: 09/04/17 02:55 Dose: 250 mls/hr Nitroglycerin/Dextrose (Nitroglycerin 50 Mg/250 Ml D5w) 50 mg in 250 mls @ 12 mls/hr IV .[id number] ONE; 40 MCG/MIN PRN Reason: Protocol Stop: 09/04/17 10:06 Last Admin: 09/04/17 07:49 Dose: 12 mls/hr Methylprednisolone (Solu-Medrol) 40 mg IV Q12 [facility] Last Admin: 09/04/17 08:43 Dose: 40 mg Metoprolol Succinate (Toprol Xl) 25 mg PO DAILY [facility] Last Admin: 09/03/17 09:20 Dose: 25 mg Multivitamins/Minerals (Therapeutic-M Tab) 1 tab PO DAILY [facility] Last Admin: 09/04/17 08:42 Dose: 1 tab Octreotide Acetate (Sandostatin) 100 mcg SC Q12 [facility] Last Admin: 09/03/17 23:37 Dose: 100 mcg Pantoprazole Sodium (Protonix Ec Tab) 40 mg PO DAILY [facility] Last Admin: 09/04/17 08:41 Dose: 40 mg Fluticasone/Salmeterol (Advair Diskus 250/50) 1 puff IH Q12H [facility] Last Admin: 09/04/17 08:45 Dose: 1 puff Sodium Bicarbonate (Sodium Bicarbonate Tab) 650 mg PO Q12 [facility] Last Admin: 09/04/17 08:42 Dose: 650 mg Trazodone HCl (Desyrel) 100 mg PO [facility] Last Admin: 09/03/17 00:30 Dose: Not Given Zolpidem Tartrate (Ambien) 5 mg PO [facility] Last Admin: 09/04/17 01:17 Dose: 5 mg - Labs Labs: 09/04/17 05:45 09/04/17 05:46 - Constitutional Appears: Non-toxic, Chronically Ill - Eye Exam Eye Exam: EOMI, PERRL - ENT Exam ENT Exam: Mucous Membranes Moist - Respiratory Exam Respiratory Exam: Decreased Breath Sounds (B/L), Wheezes (Scattered), NORMAL BREATHING PATTERN. absent: Stridor - Cardiovascular Exam Cardiovascular Exam: +S1, +S2. absent: Gallop - GI/Abdominal Exam GI & Abdominal Exam: Soft, Normal Bowel Sounds. absent: Tenderness - Extremities Exam Extremities Exam: absent: Calf Tenderness, Tenderness - Neurological Exam Neurological Exam: Alert, Awake, Oriented x3 - Psychiatric Exam Psychiatric exam: Anxious - Skin Skin Exam: Normal Color, Warm Assessment and Plan - Assessment and Plan (Free Text) Assessment: COPD exacerbation C/W Current meds Will add Spiriva daily Pulmonology consult appreciated Need to quit smoking Acute PA Likely Elevated trop with EKG changes yesterday CP resolved now S/P Cardiac Cath by Dr Armenta that showed multivessel stenosis but no oclusions. NO stent placed Likely patient had PA that resolved with medical treatment given in unit. Cardiology consult appreciated.
--- NOTE | 2017-09-04 09:23 | CP.PCM.PN ---
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 RX AND STEROIDS CARDIOLOGY FOLLOW UP Objective - Vital Signs/Intake and Output Vital Signs (last 24 hours): Temp Pulse Resp BP Pulse Ox 97.9 F 98 H 16 131/74 94 L 09/04/17 08:00 09/04/17 09:00 09/04/17 09:00 09/04/17 09:00 09/04/17 09:00 - Medications Medications: Current Medications Acetylcysteine (Acetylcysteine 20%) 2 ml INH RBID [facility] Last Admin: 09/04/17 08:04 Dose: 2 ml Albuterol/Ipratropium (Duoneb 3 Mg/0.5 Mg (3 Ml) Ud) 3 ml INH RQ4 [facility] Last Admin: 09/04/17 08:05 Dose: 3 ml Alprazolam (Xanax) 0.5 mg PO DAILY PRN PRN Reason: Anxiety Last Admin: 09/03/17 09:33 Dose: 0.5 mg Alprazolam (Xanax) 0.5 mg PO HS [facility] Last Admin: 09/03/17 23:21 Dose: 0.5 mg Aspirin (Ecotrin) 81 mg PO DAILY [facility] Atorvastatin Calcium (Lipitor) 20 mg PO DAILY [facility] Last Admin: 09/04/17 08:42 Dose: 20 mg Calcium/Vitamin D (Oyster Shell Calcium/Vitamin D 500 Mg-200 Iu) 1 tab PO DAILY [facility] Last Admin: 09/04/17 08:42 Dose: 1 tab Clopidogrel Bisulfate (Plavix) 75 mg PO DAILY [facility] Cyanocobalamin (Vitamin B12 1000 Mcg/Ml Inj) 1,000 mcg IM Q14D [facility] Last Admin: 09/02/17 23:16 Dose: 1,000 mcg Enoxaparin Sodium (Lovenox) 50 mg SC Q12 [facility] PRN Reason: Protocol Last Admin: 09/04/17 08:44 Dose: 50 mg Ergocalciferol (Drisdol 50,000 Intl Units Cap) 1 cap PO MO [facility] Fluticasone Propionate (Flonase) 2 spr PRATIBHA HS PRN PRN Reason: Allergy symptoms Ceftriaxone Sodium 1 gm/ (Sodium Chloride) 100 mls @ 100 mls/hr IVPB DAILY@ 1600 [facility] PRN Reason: Protocol Last Admin: 09/04/17 02:56 Dose: 100 mls/hr Azithromycin 500 mg/ Sodium (Chloride) 250 mls @ 250 mls/hr IVPB DAILY@1800 [facility] PRN Reason: Protocol Last Admin: 09/04/17 02:55 Dose: 250 mls/hr Nitroglycerin/Dextrose (Nitroglycerin 50 Mg/250 Ml D5w) 50 mg in 250 mls @ 12 mls/hr IV .[id number] ONE; 40 MCG/MIN PRN Reason: Protocol Stop: 09/04/17 10:06 Last Admin: 09/04/17 07:49 Dose: 12 mls/hr Methylprednisolone (Solu-Medrol) 40 mg IV Q12 [facility] Last Admin: 09/04/17 08:43 Dose: 40 mg Metoprolol Succinate (Toprol Xl) 25 mg PO DAILY [facility] Last Admin: 09/03/17 09:20 Dose: 25 mg Multivitamins/Minerals (Therapeutic-M Tab) 1 tab PO DAILY [facility] Last Admin: 09/04/17 08:42 Dose: 1 tab Octreotide Acetate (Sandostatin) 100 mcg SC Q12 [facility] Last Admin: 09/04/17 08:52 Dose: 100 mcg Pantoprazole Sodium (Protonix Ec Tab) 40 mg PO DAILY [facility] Last Admin: 09/04/17 08:41 Dose: 40 mg Fluticasone/Salmeterol (Advair Diskus 250/50) 1 puff IH Q12H [facility] Last Admin: 09/04/17 08:45 Dose: 1 puff Sodium Bicarbonate (Sodium Bicarbonate Tab) 650 mg PO Q12 [facility] Last Admin: 09/04/17 08:42 Dose: 650 mg Trazodone HCl (Desyrel) 100 mg PO [facility] Last Admin: 09/03/17 00:30 Dose: Not Given Zolpidem Tartrate (Ambien) 5 mg PO [facility] Last Admin: 09/04/17 01:17 Dose: 5 mg - Labs Labs: 09/04/17 05:45 09/04/17 05:46
[2017-09-04] MEDS: Metoprolol Succinate 25 mg XL Tab PO SCH (09:59)
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
[2017-09-04] MEDS: Tiotropium 18 mcg Cap For Inhalation INH SCH (13:29)
--- NOTE | 2017-09-04 18:21 | CARD ---
APPROVED REPORT EXAM: Two-dimensional and M-mode echocardiogram with Doppler and color Doppler. Other Information Quality : GoodRhythm : NSR INDICATION Chest Pain Non STEMI 2D DIMENSIONS IVSd0.87 (0.7-1.1cm)LVDd4.53 (3.9-5.9cm) LVOT Diameter2.18 (1.8-2.4cm)PWd0.87 (0.7-1.1cm) IVSs1.01 (0.8-1.2cm)LVDs3.42 (2.5-4.0cm) FS (%) 24.4 %PWs1.28 (0.8-1.2cm) M-Mode DIMENSIONS Left Atrium (MM)2.90 (2.5-4.0cm)IVSd0.74 (0.7-1.1cm) Aortic Root2.90 (2.2-3.7cm)LVDd5.13 (4.0-5.6cm) Aortic Cusp Exc.1.38 (1.5-2.0cm)PWd0.97 (0.7-1.1cm) IVSs1.38 cmFS (%) 47 % LVDs2.70 (2.0-3.8cm)PWs1.24 cm Mitral Valve MV E Ekoizmqi25.2cm/sMV DECEL [id number] A Sgtjolin75.1cm/s MV QPO57ifM/A ratio0.5MVA (PHT)2.34cm2 TDI Lateral E' Peak V3.42cm/sMedial E' Peak V3.59cm/sE/Lateral E'10.0 E/Medial E'9.5 Tricuspid Valve TR Peak Iiooshad472xn/sRAP [id number] Peak Gr.22mmHg [id number] LEFT VENTRICLE The left ventricle is normal size. There is normal left ventricular wall thickness. Left ventricle systolic function is moderately impaired. The Ejection Fraction is 40% The mayelin-septum , apical septum and apex are hypokinetic. Transmitral Doppler flow pattern is Grade I-abnormal relaxation pattern. No left ventricle thrombus noted on this study. There is no ventricular septal defect visualized. There is no left ventricular aneurysm. There is no mass noted in the left ventricle. RIGHT VENTRICLE The right ventricle is normal size. There is normal right ventricular wall thickness. The right ventricular systolic function is normal. ATRIA The left atrium size is normal. The right atrium size is normal. The interatrial septum is intact with no evidence for an atrial septal defect. AORTIC VALVE The aortic valve is normal in structure. No aortic regurgitation is present. There is no aortic valvular stenosis. There is no aortic valvular vegetation. MITRAL VALVE The mitral valve is normal in structure. There is no evidence of mitral valve prolapse. There is no mitral valve stenosis. There is no mitral valve regurgitation noted. TRICUSPID VALVE The tricuspid valve is normal in structure. There is mild tricuspid regurgitation. Right ventricular systolic pressure is estimated at 30-40 mmHg. There is no tricuspid valve prolapse or vegetation. There is no tricuspid valve stenosis. PULMONIC VALVE The pulmonary valve is normal in structure. There is no pulmonic valvular regurgitation. There is no pulmonic valvular stenosis. GREAT VESSELS The aortic root is normal in size. The ascending aorta is normal in size. The IVC is normal in size and collapses >50% with inspiration. PERICARDIAL EFFUSION The pericardium appears normal. There is no pleural effusion. <Conclusion> Moderate LV Systolic Dysfunction LVEF 40% LAD regional wall motion abnormality
[2017-09-04] MEDS ORDERED: Chlorhexidine Gluconate 1 APPL/PKT TP ONE (20:44)
[2017-09-05] MEDS: Albuterol-Ipratrop 3 mg / 0.5 (3 ml) UD INH SCH ×7 (00:29→23:32)
[2017-09-05 05:05] LABS: BASO % 0.1 % (0.0-2.0); HEMOGLOBIN 11.2 g/dL (12.0-16.0); LYMPH # 1.4 K/uL (1.0-4.3); MEAN CELL VOLUME 95.6 fl (81.0-99.0); MEAN CORPUSCULAR HGB CONC 33.4 g/dL (33.0-37.0); MEAN PLATELET VOLUME 7.9 fl (7.2-11.7); MONO # 0.9 K/uL (0.0-0.8); MONO % 5.2 % (0.0-10.0); NEUT # 15.6 K/uL (1.8-7.0); NEUT % 86.7 % (50.0-75.0); PLATELET COUNT 269 K/uL (130-400); RBC 3.49 Mil/uL (3.80-5.20); RED CELL DISTRIBUTION WIDTH 13.2 % (11.5-14.5)
[2017-09-05 05:41] LABS: ALB/GLOB RATIO 1.2 (1.0-2.1); CALCIUM 8.8 mg/dL (8.4-10.2)
[2017-09-05] MEDS: Acetylcysteine 20% Inhal Soln (4ml) INH SCH (07:43)
[2017-09-05] MEDS: Enoxaparin 60 mg Syringe SC SCH (08:21)
[2017-09-05] MEDS: Calcium-Vit D 500 mg-200 Units Tab UD PO SCH (08:21)
[2017-09-05] MEDS: Pantoprazole 40 mg EC Tab PO SCH (08:22)
[2017-09-05] MEDS: MethylPREDNISolone 40 mg Vial IV SCH ×2 (08:23→22:12)
[2017-09-05] MEDS: Metoprolol Succinate 25 mg XL Tab PO SCH (08:24)
[2017-09-05] MEDS: Tiotropium 18 mcg Cap For Inhalation INH SCH (08:24)
[2017-09-05] MEDS: Multivitamin With Minerals Tab PO SCH (08:24)
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
[2017-09-05 09:21] LABS: ANISOCYTOSIS SLIGHT; BANDS 1 % (0-2); BURR CELLS SLIGHT; GIANT PLATELETS PRESENT; LARGE PLATELETS PRESENT; LYMPHOCYTE 8 % (20-50); MONOCYTE 6 % (0-10); MYELOCYTE 1 % (0-0); NEUTROPHIL 83 % (42-75); OVALOCYTES SLIGHT; PLATELET ESTIMATE NORMAL (NORMAL); POIKILOCYTOSIS SLIGHT; REACTIVE LYMPHOCYTES 1 % (0-0); SCHISTOCYTES SLIGHT; TEARDROP CELLS SLIGHT; TOTAL CELLS COUNTED 100
[2017-09-05] MEDS: Fluticasone-Salmeterol 250-50mcg Diskus IH SCH ×2 (10:24→22:03)
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
[2017-09-05 11:51] LABS: OSMOLALITY,URINE 436 mosm/kg (300-1000)
[2017-09-05] MEDS ORDERED: Sodium Chloride 0.9% 500 ML IV SCH (15:00)
--- NOTE | 2017-09-05 16:04 | CP.PCM.PN ---
Subjective - Date & Time of Evaluation Date of Evaluation: 09/05/17 Time of Evaluation: 16:05 - Subjective Subjective: FEELS BETTER CHEST PAINS/SOB IMPROVED Objective - Vital Signs/Intake and Output Vital Signs (last 24 hours): Temp Pulse Resp BP Pulse Ox 98.0 F 88 17 123/63 95 09/05/17 08:00 09/05/17 13:59 09/05/17 13:59 09/05/17 13:59 09/05/17 13:59 Intake and Output: 09/05/17 09/05/17 06:59 18:59 Intake Total 120 Output Total 1000 Balance -880 - Medications Medications: Current Medications Albuterol/Ipratropium (Duoneb 3 Mg/0.5 Mg (3 Ml) Ud) 3 ml INH RQ4 [facility] Last Admin: 09/05/17 15:54 Dose: 3 ml Alprazolam (Xanax) 0.5 mg PO DAILY PRN PRN Reason: Anxiety Last Admin: 09/05/17 11:05 Dose: 0.5 mg Alprazolam (Xanax) 0.5 mg PO HS [facility] Last Admin: 09/04/17 21:01 Dose: 0.5 mg Aspirin (Ecotrin) 81 mg PO DAILY [facility] Last Admin: 09/05/17 08:20 Dose: 81 mg Atorvastatin Calcium (Lipitor) 20 mg PO DAILY [facility] Last Admin: 09/05/17 08:20 Dose: 20 mg Calcium/Vitamin D (Oyster Shell Calcium/Vitamin D 500 Mg-200 Iu) 1 tab PO DAILY [facility] Last Admin: 09/05/17 08:21 Dose: 1 tab Clopidogrel Bisulfate (Plavix) 75 mg PO DAILY [facility] Last Admin: 09/05/17 08:21 Dose: 75 mg Cyanocobalamin (Vitamin B12 1000 Mcg/Ml Inj) 1,000 mcg IM Q14D [facility] Last Admin: 09/02/17 23:16 Dose: 1,000 mcg Enoxaparin Sodium (Lovenox) 40 mg SC DAILY [facility] PRN Reason: Protocol Ergocalciferol (Drisdol 50,000 Intl Units Cap) 1 cap PO [facility] Fluticasone Propionate (Flonase) 2 spr PRATIBHA HS PRN PRN Reason: Allergy symptoms Last Admin: 09/05/17 11:03 Dose: 2 spr Ceftriaxone Sodium 1 gm/ (Sodium Chloride) 100 mls @ 100 mls/hr IVPB DAILY@ 1600 [facility] PRN Reason: Protocol Last Admin: 09/05/17 15:29 Dose: 100 mls/hr Azithromycin 500 mg/ Sodium (Chloride) 250 mls @ 250 mls/hr IVPB DAILY@1800 [facility] PRN Reason: Protocol Last Admin: 09/04/17 17:04 Dose: 250 mls/hr Sodium Chloride (Sodium Chloride 0.9%) 500 mls @ 80 mls/hr IV .Q6H15M [facility] Stop: 09/05/17 21:14 Last Admin: 09/05/17 15:30 Dose: 80 mls/hr Losartan Potassium (Cozaar) 12.5 mg PO DAILY [facility] Last Admin: 09/05/17 08:19 Dose: 12.5 mg Methylprednisolone (Solu-Medrol) 40 mg IV Q12 [facility] Last Admin: 09/05/17 08:23 Dose: 40 mg Metoprolol Succinate (Toprol Xl) 25 mg PO DAILY [facility] Last Admin: 09/05/17 08:24 Dose: 25 mg Multivitamins/Minerals (Therapeutic-M Tab) 1 tab PO DAILY [facility] Last Admin: 09/05/17 08:24 Dose: 1 tab Nicotine (Nicoderm Cq) 1 patch TD DAILY [facility] Last Admin: 09/05/17 10:17 Dose: 1 patch Octreotide Acetate (Sandostatin) 100 mcg SC Q12 [facility] Last Admin: 09/05/17 08:27 Dose: 100 mcg Pantoprazole Sodium (Protonix Ec Tab) 40 mg PO DAILY [facility] Last Admin: 09/05/17 08:22 Dose: 40 mg Fluticasone/Salmeterol (Advair Diskus 250/50) 1 puff IH Q12H [facility] Last Admin: 09/05/17 10:24 Dose: 1 puff Sodium Bicarbonate (Sodium Bicarbonate Tab) 650 mg PO Q12 [facility] Last Admin: 09/05/17 08:23 Dose: 650 mg Trazodone HCl (Desyrel) 100 mg PO HS [facility] Last Admin: 09/03/17 00:30 Dose: Not Given Zolpidem Tartrate (Ambien) 5 mg PO HS [facility] Last Admin: 09/05/17 00:42 Dose: 5 mg - Labs Labs: 09/05/17 04:13 09/05/17 04:13 - Constitutional Appears: Chronically Ill - Head Exam Head Exam: ATRAUMATIC, NORMAL INSPECTION, NORMOCEPHALIC - Eye Exam Eye Exam: EOMI, Normal appearance, PERRL Pupil Exam: NORMAL ACCOMODATION, PERRL - ENT Exam ENT Exam: Mucous Membranes Moist, Normal Exam - Neck Exam Neck Exam: Full ROM, Normal Inspection. absent: Lymphadenopathy - Respiratory Exam Respiratory Exam: Decreased Breath Sounds, Prolonged Expiratory Phase, Rales, Wheezes, NORMAL BREATHING PATTERN Additional comments: ON HIGH FLOW O2 - Cardiovascular Exam Cardiovascular Exam: REGULAR RHYTHM, +S1, +S2. absent: Murmur - GI/Abdominal Exam GI & Abdominal Exam: Soft, Normal Bowel Sounds. absent: Tenderness - Rectal Exam Rectal Exam: NORMAL INSPECTION - Extremities Exam Extremities Exam: Full ROM, Normal Capillary Refill, Normal Inspection. absent : Joint Swelling, Pedal Edema - Back Exam Back Exam: NORMAL INSPECTION - Neurological Exam Neurological Exam: Alert, Awake, CN II-XII Intact, Normal Gait, Oriented x3 - Psychiatric Exam Psychiatric exam: Anxious - Skin Skin Exam: Dry, Intact, Normal Color, Warm Assessment and Plan - Assessment and Plan (Free Text) Assessment: ACUTE EXAC OF COPD-IMPROVING ACUTE [place] ANXIETY Plan: FOR TRANSFER TO REGULAR FLOOR WILL CONTINUE HIGH FLOW O2 WILL BENEFIT FROM TCU
[2017-09-05] MEDS: Azithromycin 500 MG in Sodium Chloride 0.9% 250 ML IVPB SCH (17:12)
--- NOTE | 2017-09-05 18:02 | CARD ---
APPROVED REPORT EKG Measurement Heart [id number] <Conclusion> Normal sinus rhythm ST & Marked T wave abnormality, consider anterolateral ischemia Prolonged QT Abnormal ECG
--- NOTE | 2017-09-05 18:10 | CARD ---
APPROVED REPORT EKG Measurement Heart [id number] <Conclusion> Sinus rhythm with premature atrial complexes ST & Marked T wave abnormality, consider inferior ischemia ST & Marked T wave abnormality, consider anterolateral ischemia Prolonged QT Abnormal ECG
--- NOTE | 2017-09-05 18:20 | CARD ---
APPROVED REPORT EKG Measurement Heart [id number] <Conclusion> Normal sinus rhythm Anterior infarct, age undetermined Marked T wave abnormality, consider inferolateral ischemia Abnormal ECG
[2017-09-06] MEDS: Albuterol-Ipratrop 3 mg / 0.5 (3 ml) UD INH SCH ×6 (04:04→23:26)
[2017-09-06 07:29] LABS: BLOOD UREA NITROGEN 19 mg/dl (7-17); CALCIUM 8.6 mg/dL (8.4-10.2); GFR AFRICAN-AMERICAN > 60; GFR NON-AFRICAN AMERICAN > 60
[2017-09-06] MEDS: Pantoprazole 40 mg EC Tab PO SCH (08:22)
[2017-09-06] MEDS: Enoxaparin 40 mg Syringe SC SCH (08:22)
[2017-09-06] MEDS: Calcium-Vit D 500 mg-200 Units Tab UD PO SCH (08:23)
[2017-09-06] MEDS: Multivitamin With Minerals Tab PO SCH (08:23)
[2017-09-06] MEDS: MethylPREDNISolone 40 mg Vial IV SCH (08:23)
[2017-09-06] MEDS: Metoprolol Succinate 25 mg XL Tab PO SCH (08:23)
[2017-09-06] MEDS: Fluticasone-Salmeterol 250-50mcg Diskus IH SCH ×3 (08:36→22:08)
--- NOTE | 2017-09-06 12:29 | CP.PCM.PN ---
Subjective - Date & Time of Evaluation Date of Evaluation: 09/06/17 Time of Evaluation: 12:29 - Subjective Subjective: C/O PANIC ATTACKS SOB IMPROVING NO CHEST PAINS WANTS TO MAINTAIN HIGH FLOW O2 TODAY Objective - Vital Signs/Intake and Output Vital Signs (last 24 hours): Temp Pulse Resp BP Pulse Ox 98.1 F 73 18 104/61 98 09/06/17 08:00 09/06/17 08:23 09/06/17 11:13 09/06/17 08:23 09/06/17 08:00 - Medications Medications: Current Medications Albuterol/Ipratropium (Duoneb 3 Mg/0.5 Mg (3 Ml) Ud) 3 ml INH RQ4 [facility] Last Admin: 09/06/17 11:11 Dose: 3 ml Alprazolam (Xanax) 0.5 mg PO HS [facility] Last Admin: 09/05/17 22:05 Dose: 0.5 mg Alprazolam (Xanax) 0.5 mg PO Q8 [facility] Aspirin (Ecotrin) 81 mg PO DAILY [facility] Last Admin: 09/06/17 08:22 Dose: 81 mg Atorvastatin Calcium (Lipitor) 20 mg PO DAILY [facility] Last Admin: 09/06/17 08:24 Dose: 20 mg Calcium/Vitamin D (Oyster Shell Calcium/Vitamin D 500 Mg-200 Iu) 1 tab PO DAILY [facility] Last Admin: 09/06/17 08:23 Dose: 1 tab Clopidogrel Bisulfate (Plavix) 75 mg PO DAILY [facility] Last Admin: 09/06/17 08:22 Dose: 75 mg Cyanocobalamin (Vitamin B12 1000 Mcg/Ml Inj) 1,000 mcg IM Q14D [facility] Last Admin: 09/02/17 23:16 Dose: 1,000 mcg Enoxaparin Sodium (Lovenox) 40 mg SC DAILY [facility] PRN Reason: Protocol Last Admin: 09/06/17 08:22 Dose: 40 mg Ergocalciferol (Drisdol 50,000 Intl Units Cap) 1 cap PO [facility] Fluticasone Propionate (Flonase) 2 spr PRATIBHA HS PRN PRN Reason: Allergy symptoms Last Admin: 09/05/17 11:03 Dose: 2 spr Ceftriaxone Sodium 1 gm/ (Sodium Chloride) 100 mls @ 100 mls/hr IVPB DAILY@ 1600 [facility] PRN Reason: Protocol Last Admin: 09/05/17 15:29 Dose: 100 mls/hr Azithromycin 500 mg/ Sodium (Chloride) 250 mls @ 250 mls/hr IVPB DAILY@1800 [facility] PRN Reason: Protocol Last Admin: 09/05/17 17:12 Dose: 250 mls/hr Losartan Potassium (Cozaar) 12.5 mg PO DAILY [facility] Last Admin: 09/06/17 08:24 Dose: 12.5 mg Methylprednisolone (Solu-Medrol) 40 mg IV Q12 [facility] Last Admin: 09/06/17 08:23 Dose: 40 mg Metoprolol Succinate (Toprol Xl) 25 mg PO DAILY [facility] Last Admin: 09/06/17 08:23 Dose: 25 mg Multivitamins/Minerals (Therapeutic-M Tab) 1 tab PO DAILY [facility] Last Admin: 09/06/17 08:23 Dose: 1 tab Nicotine (Nicoderm Cq) 1 patch TD DAILY [facility] Last Admin: 09/06/17 08:23 Dose: 1 patch Octreotide Acetate (Sandostatin) 100 mcg SC Q12 [facility] Last Admin: 09/06/17 08:25 Dose: 100 mcg Pantoprazole Sodium (Protonix Ec Tab) 40 mg PO DAILY [facility] Last Admin: 09/06/17 08:22 Dose: 40 mg Fluticasone/Salmeterol (Advair Diskus 250/50) 1 puff IH Q12H [facility] Last Admin: 09/06/17 08:57 Dose: Not Given Sodium Bicarbonate (Sodium Bicarbonate Tab) 650 mg PO Q12 [facility] Last Admin: 09/06/17 08:23 Dose: 650 mg Trazodone HCl (Desyrel) 100 mg PO [facility] Last Admin: 09/03/17 00:30 Dose: Not Given Zolpidem Tartrate (Ambien) 5 mg PO [facility] Last Admin: 09/06/17 00:49 Dose: 5 mg - Labs Labs: 09/05/17 04:13 09/06/17 05:30 - Constitutional Appears: No Acute Distress - Head Exam Head Exam: ATRAUMATIC, NORMAL INSPECTION, NORMOCEPHALIC - Eye Exam Eye Exam: EOMI, Normal appearance, PERRL Pupil Exam: NORMAL ACCOMODATION, PERRL - ENT Exam ENT Exam: Mucous Membranes Moist, Normal Exam - Neck Exam Neck Exam: Full ROM, Normal Inspection. absent: Lymphadenopathy - Respiratory Exam Respiratory Exam: Decreased Breath Sounds, Prolonged Expiratory Phase, NORMAL BREATHING PATTERN - Cardiovascular Exam Cardiovascular Exam: REGULAR RHYTHM, +S1, +S2. absent: Murmur - GI/Abdominal Exam GI & Abdominal Exam: Soft, Normal Bowel Sounds. absent: Tenderness - Rectal Exam Rectal Exam: NORMAL INSPECTION - Extremities Exam Extremities Exam: Full ROM, Normal Capillary Refill, Normal Inspection. absent : Joint Swelling, Pedal Edema - Back Exam Back Exam: NORMAL INSPECTION - Neurological Exam Neurological Exam: Alert, Awake, CN II-XII Intact, Normal Gait, Oriented x3 - Psychiatric Exam Psychiatric exam: Anxious - Skin Skin Exam: Dry, Intact, Normal Color, Warm Assessment and Plan - Assessment and Plan (Free Text) Assessment: COPD ANXIETY S/P NM Plan: CONTINUE PRESENT RX TAPER STEROIDS REPEAT LABS IN AM INCREASE XANAX TO Q8H
[2017-09-06] MEDS: Azithromycin 500 MG in Sodium Chloride 0.9% 250 ML IVPB SCH (17:30)
[2017-09-06] MEDS ORDERED: HYDROmorphone 0.5 mg/0.5 ml ISec IVP ONE (22:18)
[2017-09-07] MEDS: Albuterol-Ipratrop 3 mg / 0.5 (3 ml) UD INH SCH ×6 (04:32→23:46)
[2017-09-07 07:00] LABS: HEMOGLOBIN 8.8 g/dL (12.0-16.0); MEAN CELL VOLUME 96.5 fl (81.0-99.0); MEAN CORPUSCULAR HEMOGLOBIN 32.8 pg (27.0-31.0); RBC 2.68 Mil/uL (3.80-5.20); RED CELL DISTRIBUTION WIDTH 13.3 % (11.5-14.5); WHITE BLOOD COUNT 18.2 K/uL (4.8-10.8)
[2017-09-07 07:12] LABS: ALB/GLOB RATIO 1.1 (1.0-2.1); ALBUMIN 2.7 g/dL (3.5-5.0); ALT/SGPT 41 U/L (9-52); AST/SGOT 38 U/L (14-36); BLOOD UREA NITROGEN 17 mg/dl (7-17); CALCIUM 8.6 mg/dL (8.4-10.2); GFR AFRICAN-AMERICAN > 60; GFR NON-AFRICAN AMERICAN > 60
[2017-09-07] MEDS: Multivitamin With Minerals Tab PO SCH (08:49)
[2017-09-07] MEDS: Fluticasone-Salmeterol 250-50mcg Diskus IH SCH ×2 (08:49→21:22)
[2017-09-07] MEDS: Calcium-Vit D 500 mg-200 Units Tab UD PO SCH (08:49)
[2017-09-07] MEDS: Metoprolol Succinate 25 mg XL Tab PO SCH (08:50)
[2017-09-07] MEDS: Pantoprazole 40 mg EC Tab PO SCH (08:50)
[2017-09-07] MEDS: Enoxaparin 40 mg Syringe SC SCH (08:51)
[2017-09-07] MEDS: MethylPREDNISolone 40 mg Vial IV SCH (10:17)
--- NOTE | 2017-09-07 11:06 | CP.PCM.PN ---
Subjective - Date & Time of Evaluation Date of Evaluation: 09/07/17 Time of Evaluation: 11:08 - Subjective Subjective: SOB LESS NO CHEST PAINS HAS ECCHYMOSIS OF SKIN HB LOWER THAN ON ADMISSION--PROBABLY DUE TO CATH AND ANTICOAGULATION Objective - Vital Signs/Intake and Output Vital Signs (last 24 hours): Temp Pulse Resp BP Pulse Ox 97.8 F 74 16 134/69 98 09/07/17 08:13 09/07/17 08:50 09/07/17 08:24 09/07/17 08:50 09/07/17 08:13 - Medications Medications: Current Medications Albuterol/Ipratropium (Duoneb 3 Mg/0.5 Mg (3 Ml) Ud) 3 ml INH RQ4 [facility] Last Admin: 09/07/17 08:10 Dose: 3 ml Alprazolam (Xanax) 0.5 mg PO HS [facility] Last Admin: 09/06/17 23:38 Dose: 0.5 mg Alprazolam (Xanax) 0.5 mg PO Q8 [facility] Last Admin: 09/07/17 08:52 Dose: Not Given Aspirin (Ecotrin) 81 mg PO DAILY [facility] Last Admin: 09/07/17 08:50 Dose: 81 mg Atorvastatin Calcium (Lipitor) 20 mg PO DAILY [facility] Last Admin: 09/07/17 08:50 Dose: 20 mg Calcium/Vitamin D (Oyster Shell Calcium/Vitamin D 500 Mg-200 Iu) 1 tab PO DAILY [facility] Last Admin: 09/07/17 08:49 Dose: 1 tab Clopidogrel Bisulfate (Plavix) 75 mg PO DAILY [facility] Last Admin: 09/07/17 08:50 Dose: 75 mg Cyanocobalamin (Vitamin B12 1000 Mcg/Ml Inj) 1,000 mcg IM Q14D [facility] Last Admin: 09/02/17 23:16 Dose: 1,000 mcg Enoxaparin Sodium (Lovenox) 40 mg SC DAILY [facility] PRN Reason: Protocol Last Admin: 09/07/17 08:51 Dose: 40 mg Ergocalciferol (Drisdol 50,000 Intl Units Cap) 1 cap PO MO [facility] Fluticasone Propionate (Flonase) 2 spr PRATIBHA HS PRN PRN Reason: Allergy symptoms Last Admin: 09/06/17 23:47 Dose: 2 spr Ceftriaxone Sodium 1 gm/ (Sodium Chloride) 100 mls @ 100 mls/hr IVPB DAILY@ 1600 [facility] PRN Reason: Protocol Last Admin: 09/06/17 16:08 Dose: 100 mls/hr Azithromycin 500 mg/ Sodium (Chloride) 250 mls @ 250 mls/hr IVPB DAILY@1800 [facility] PRN Reason: Protocol Last Admin: 09/06/17 17:30 Dose: 250 mls/hr Losartan Potassium (Cozaar) 12.5 mg PO DAILY [facility] Last Admin: 09/07/17 08:51 Dose: 12.5 mg Methylprednisolone (Solu-Medrol) 40 mg IV DAILY [facility] Last Admin: 09/07/17 10:17 Dose: 40 mg Metoprolol Succinate (Toprol Xl) 25 mg PO DAILY [facility] Last Admin: 09/07/17 08:50 Dose: 25 mg Multivitamins/Minerals (Therapeutic-M Tab) 1 tab PO DAILY [facility] Last Admin: 09/07/17 08:49 Dose: 1 tab Nicotine (Nicoderm Cq) 1 patch TD DAILY [facility] Last Admin: 09/07/17 08:51 Dose: 1 patch Octreotide Acetate (Sandostatin) 100 mcg SC Q12 [facility] Last Admin: 09/07/17 08:51 Dose: 100 mcg Pantoprazole Sodium (Protonix Ec Tab) 40 mg PO DAILY [facility] Last Admin: 09/07/17 08:50 Dose: 40 mg Fluticasone/Salmeterol (Advair Diskus 250/50) 1 puff IH Q12H [facility] Last Admin: 09/07/17 08:49 Dose: 1 puff Sodium Bicarbonate (Sodium Bicarbonate Tab) 650 mg PO Q12 [facility] Last Admin: 09/07/17 08:50 Dose: 650 mg Trazodone HCl (Desyrel) 100 mg PO [facility] Last Admin: 09/03/17 00:30 Dose: Not Given Zolpidem Tartrate (Ambien) 5 mg PO [facility] Last Admin: 09/06/17 23:44 Dose: 5 mg - Labs Labs: 09/07/17 05:30 09/07/17 05:30 - Constitutional Appears: No Acute Distress - Head Exam Head Exam: ATRAUMATIC, NORMAL INSPECTION, NORMOCEPHALIC - Eye Exam Eye Exam: EOMI, Normal appearance, PERRL Pupil Exam: NORMAL ACCOMODATION, PERRL - ENT Exam ENT Exam: Mucous Membranes Moist, Normal Exam - Neck Exam Neck Exam: Full ROM, Normal Inspection. absent: Lymphadenopathy - Respiratory Exam Respiratory Exam: Decreased Breath Sounds, Prolonged Expiratory Phase, Rales, NORMAL BREATHING PATTERN - Cardiovascular Exam Cardiovascular Exam: REGULAR RHYTHM, +S1, +S2. absent: Murmur - GI/Abdominal Exam GI & Abdominal Exam: Soft, Normal Bowel Sounds. absent: Tenderness Additional comments: COLOSTOMY IN PLACE - Rectal Exam Rectal Exam: NORMAL INSPECTION - Extremities Exam Extremities Exam: Full ROM, Normal Capillary Refill, Normal Inspection. absent : Joint Swelling, Pedal Edema - Back Exam Back Exam: NORMAL INSPECTION - Neurological Exam Neurological Exam: Alert, Awake, CN II-XII Intact, Normal Gait, Oriented x3 - Psychiatric Exam Psychiatric exam: Anxious - Skin Skin Exam: Dry, Intact, Warm Additional comments: ECCHYMOSIS Assessment and Plan - Assessment and Plan (Free Text) Assessment: COPD EXAC--IMPROVING CORONARY ARTERY DZ S/P AL POST OP ANEMIA Plan: D/C HIGH FLOW O2 PLACE ON O2 VIA NC MONITOR HB OOB TO CHAIR TOLERATED
--- NOTE | 2017-09-07 13:09 | CP.PCM.CON ---
<Lakisha Greer - Last Filed: 09/07/17 13:21> History of Present Illness - History of Present Illness History of Present Illness: PGY4 Initial GI consult ' Mayra Kaiser is a 67 F w/ hx of COPD, HTN, ileotomy s/p complicated hernia? who presented to the Er with complaints of SOB, chest pain, and cough. Pt was found to have ACS with NSTEMI. She was eventually loaded with ASA, antiplat, and lovenox. She eventually had a cath which revealed some LAD disease, but was " auto lysed" so no stent was deployed. For the past 2 days her hgb has trended down to 8.8. She denies any BRBPR or in her ilieostomy bag. Denies any melena, hematemesis or coffee-ground emesis. Pt does have a hx of colonic resection with ileostomy for complicated "hernia" as per pt. She denies any abd pain. She does noted marked echymosis around her IV site, inguinal area. PMHx: HTN, COPD, CAD PSHx: Iliostomy Family hx: denies [place] hx: longer term smoker > 30 years, at least 1PPD, social drinker, denies any illicit drugs Endo hx: EGD 2013: gastritis, esophageal stricture, hiatial hernia ROS: 12point ROS conducted neg other than above Past Patient History - Past Medical History & Family History Past Medical History?: Yes - Past Social History Smoking Status: Light Smoker < 10 Cigarettes Daily - CARDIAC Hx Cardiac Disorders: Yes Hx Hypertension: Yes - PULMONARY Hx Respiratory Disorders: Yes Hx Chronic Obstructive Pulmonary Disease (COPD): Yes - NEUROLOGICAL Hx Neurological Disorder: Yes Other/Comment: FIBROMYALGIA - HEENT Hx HEENT Problems: No - RENAL Hx Chronic Kidney Disease: No - ENDOCRINE/METABOLIC Hx Endocrine Disorders: No - HEMATOLOGICAL/ONCOLOGICAL Hx Blood Disorders: No Hx Human Immunodeficiency Virus (HIV): No - INTEGUMENTARY Hx Dermatological Problems: No - MUSCULOSKELETAL/RHEUMATOLOGICAL Hx Musculoskeletal Disorders: No Hx Falls: No - GASTROINTESTINAL Hx Gastrointestinal Disorders: Yes Hx Ileostomy: Yes - GENITOURINARY/GYNECOLOGICAL Hx Genitourinary Disorders: No - PSYCHIATRIC Hx Psychophysiologic Disorder: Yes Hx Anxiety: Yes Hx Substance Use: No - SURGICAL HISTORY Hx Surgeries: Yes Hx Cholecystectomy: Yes Hx Herniorrhaphy: Yes Hx Hysterectomy: Yes - ANESTHESIA Hx Anesthesia: Yes Hx Anesthesia Reactions: No Hx Malignant Hyperthermia: No Meds Allergies/Adverse Reactions: Allergies Allergy/AdvReac Type Severity Reaction Status Date / Time Sulfa (Sulfonamide Allergy crystallized Verified 09/02/17 16:12 Antibiotics) kidneys - Medications Medications: Current Medications Albuterol/Ipratropium (Duoneb 3 Mg/0.5 Mg (3 Ml) Ud) 3 ml INH RQ4 [facility] Last Admin: 09/07/17 11:33 Dose: 3 ml Alprazolam (Xanax) 0.5 mg PO HS [facility] Last Admin: 09/06/17 23:38 Dose: 0.5 mg Alprazolam (Xanax) 0.5 mg PO Q8 [facility] Last Admin: 09/07/17 08:52 Dose: Not Given Aspirin (Ecotrin) 81 mg PO DAILY [facility] Last Admin: 09/07/17 08:50 Dose: 81 mg Atorvastatin Calcium (Lipitor) 20 mg PO DAILY [facility] Last Admin: 09/07/17 08:50 Dose: 20 mg Calcium/Vitamin D (Oyster Shell Calcium/Vitamin D 500 Mg-200 Iu) 1 tab PO DAILY [facility] Last Admin: 09/07/17 08:49 Dose: 1 tab Clopidogrel Bisulfate (Plavix) 75 mg PO DAILY [facility] Last Admin: 09/07/17 08:50 Dose: 75 mg Cyanocobalamin (Vitamin B12 1000 Mcg/Ml Inj) 1,000 mcg IM Q14D [facility] Last Admin: 09/02/17 23:16 Dose: 1,000 mcg Enoxaparin Sodium (Lovenox) 40 mg SC DAILY [facility] PRN Reason: Protocol Last Admin: 09/07/17 08:51 Dose: 40 mg Ergocalciferol (Drisdol 50,000 Intl Units Cap) 1 cap PO MO [facility] Fluticasone Propionate (Flonase) 2 spr PRATIBHA HS PRN PRN Reason: Allergy symptoms Last Admin: 09/06/17 23:47 Dose: 2 spr Ceftriaxone Sodium 1 gm/ (Sodium Chloride) 100 mls @ 100 mls/hr IVPB DAILY@ 1600 [facility] PRN Reason: Protocol Last Admin: 09/06/17 16:08 Dose: 100 mls/hr Azithromycin 500 mg/ Sodium (Chloride) 250 mls @ 250 mls/hr IVPB DAILY@1800 [facility] PRN Reason: Protocol Last Admin: 09/06/17 17:30 Dose: 250 mls/hr Losartan Potassium (Cozaar) 12.5 mg PO DAILY [facility] Last Admin: 09/07/17 08:51 Dose: 12.5 mg Methylprednisolone (Solu-Medrol) 40 mg IV DAILY [facility] Last Admin: 09/07/17 10:17 Dose: 40 mg Metoprolol Succinate (Toprol Xl) 25 mg PO DAILY [facility] Last Admin: 09/07/17 08:50 Dose: 25 mg Multivitamins/Minerals (Therapeutic-M Tab) 1 tab PO DAILY [facility] Last Admin: 09/07/17 08:49 Dose: 1 tab Nicotine (Nicoderm Cq) 1 patch TD DAILY [facility] Last Admin: 09/07/17 08:51 Dose: 1 patch Octreotide Acetate (Sandostatin) 100 mcg SC Q12 [facility] Last Admin: 09/07/17 08:51 Dose: 100 mcg Pantoprazole Sodium (Protonix Ec Tab) 40 mg PO DAILY [facility] Last Admin: 09/07/17 08:50 Dose: 40 mg Fluticasone/Salmeterol (Advair Diskus 250/50) 1 puff IH Q12H [facility] Last Admin: 09/07/17 08:49 Dose: 1 puff Sodium Bicarbonate (Sodium Bicarbonate Tab) 650 mg PO Q12 [facility] Last Admin: 09/07/17 08:50 Dose: 650 mg Trazodone HCl (Desyrel) 100 mg PO [facility] Last Admin: 09/03/17 00:30 Dose: Not Given Zolpidem Tartrate (Ambien) 5 mg PO [facility] Last Admin: 09/06/17 23:44 Dose: 5 mg Physical Exam - Constitutional Appears: Well, No Acute Distress - Head Exam Head Exam: ATRAUMATIC, NORMOCEPHALIC - Eye Exam Eye Exam: Normal appearance - ENT Exam ENT Exam: Mucous Membranes Moist, Normal Exam - Neck Exam Neck exam: Positive for: Normal Inspection - Respiratory Exam Respiratory Exam: Clear to Auscultation Bilateral, NORMAL BREATHING PATTERN. absent: Rales, Rhonchi, Wheezes, Respiratory Distress - Cardiovascular Exam Cardiovascular Exam: REGULAR RHYTHM, +S1, +S2 - GI/Abdominal Exam GI & Abdominal Exam: Normal Bowel Sounds. absent: Guarding, Organomegaly, Rigid Additional comments: ileostomy bag with green/brown stool - Extremities Exam Extremities exam: Negative for: joint swelling, pedal edema - Neurological Exam Neurological exam: Alert, Oriented x3 - Psychiatric Exam Psychiatric exam: Normal Affect, Normal Mood - Skin Skin Exam: Dry, Intact, Normal Color, Warm Results - Vital Signs Recent Vital Signs: Last Vital Signs Temp 97.8 F 09/07/17 08:13 Pulse 74 09/07/17 08:50 Resp 16 09/07/17 08:24 BP 134/69 09/07/17 08:50 Pulse Ox 97 09/07/17 12:29 - Labs Result Diagrams: 09/07/17 05:30 09/07/17 05:30 Labs: Laboratory Results - last 24 hr 09/07/17 09/07/17 05:30 05:30 WBC 18.2 H RBC 2.68 L Hgb 8.8 L D Hct 25.8 L MCV 96.5 MCH 32.8 H MCHC 34.0 RDW 13.3 Plt Count 236 Sodium 128 L Potassium 4.0 Chloride 93 L Carbon Dioxide 28 Anion Gap 11 BUN 17 Creatinine 0.9 Est GFR ( Amer) > 60 Est GFR (Non-Af Amer) > 60 Random Glucose 91 Calcium 8.6 Total Bilirubin 0.5 AST 38 H ALT 41 Alkaline Phosphatase 45 Total Protein 5.0 L Albumin 2.7 L Globulin 2.4 Albumin/Globulin Ratio 1.1 Assessment & Plan - Assessment and Plan (Free Text) Assessment: Mayra Kaiser is a 67F w/ hx of ilieostomy, HTN, COPD, who presents with NTEMI. GI was consulted for TN Anemia, likely 2/2 blood loss from cath site Ecchymosis Ileiostomy Plan: -would eval CT Abd pelv to rule out hematoma from cath site -unlikley GI loss -monitor ilietomy bag -continue PPI -no endoscopic eval indicated at this time in the setting of acute TN -colonoscopy as oupt -should wait at least 6months prior to any endoscopic eval D/W Dr. Hirsch <Dwaine Hirsch - Last Filed: 09/07/17 15:36> Meds - Medications Medications: Current Medications Albuterol/Ipratropium (Duoneb 3 Mg/0.5 Mg (3 Ml) Ud) 3 ml INH RQ4 [facility] Last Admin: 09/07/17 11:33 Dose: 3 ml Alprazolam (Xanax) 0.5 mg PO HS [facility] Last Admin: 09/06/17 23:38 Dose: 0.5 mg Alprazolam (Xanax) 0.5 mg PO Q8 [facility] Last Admin: 09/07/17 13:08 Dose: 0.5 mg Aspirin (Ecotrin) 81 mg PO DAILY [facility] Last Admin: 09/07/17 08:50 Dose: 81 mg Atorvastatin Calcium (Lipitor) 20 mg PO DAILY [facility] Last Admin: 09/07/17 08:50 Dose: 20 mg Calcium/Vitamin D (Oyster Shell Calcium/Vitamin D 500 Mg-200 Iu) 1 tab PO DAILY [facility] Last Admin: 09/07/17 08:49 Dose: 1 tab Clopidogrel Bisulfate (Plavix) 75 mg PO DAILY [facility] Last Admin: 09/07/17 08:50 Dose: 75 mg Cyanocobalamin (Vitamin B12 1000 Mcg/Ml Inj) 1,000 mcg IM Q14D [facility] Last Admin: 09/02/17 23:16 Dose: 1,000 mcg Enoxaparin Sodium (Lovenox) 40 mg SC DAILY [facility] PRN Reason: Protocol Last Admin: 09/07/17 08:51 Dose: 40 mg Ergocalciferol (Drisdol 50,000 Intl Units Cap) 1 cap PO [facility] Fluticasone Propionate (Flonase) 2 spr PRATIBHA HS PRN PRN Reason: Allergy symptoms Last Admin: 09/06/17 23:47 Dose: 2 spr Ceftriaxone Sodium 1 gm/ (Sodium Chloride) 100 mls @ 100 mls/hr IVPB DAILY@ 1600 [facility] PRN Reason: Protocol Last Admin: 09/06/17 16:08 Dose: 100 mls/hr Azithromycin 500 mg/ Sodium (Chloride) 250 mls @ 250 mls/hr IVPB DAILY@1800 [facility] PRN Reason: Protocol Last Admin: 09/06/17 17:30 Dose: 250 mls/hr Losartan Potassium (Cozaar) 12.5 mg PO DAILY [facility] Last Admin: 09/07/17 08:51 Dose: 12.5 mg Methylprednisolone (Solu-Medrol) 40 mg IV DAILY [facility] Last Admin: 09/07/17 10:17 Dose: 40 mg Metoprolol Succinate (Toprol Xl) 25 mg PO DAILY [facility] Last Admin: 09/07/17 08:50 Dose: 25 mg Multivitamins/Minerals (Therapeutic-M Tab) 1 tab PO DAILY [facility] Last Admin: 09/07/17 08:49 Dose: 1 tab Nicotine (Nicoderm Cq) 1 patch TD DAILY [facility] Last Admin: 09/07/17 08:51 Dose: 1 patch Octreotide Acetate (Sandostatin) 100 mcg SC Q12 [facility] Last Admin: 09/07/17 08:51 Dose: 100 mcg Pantoprazole Sodium (Protonix Ec Tab) 40 mg PO DAILY [facility] Last Admin: 09/07/17 08:50 Dose: 40 mg Fluticasone/Salmeterol (Advair Diskus 250/50) 1 puff IH Q12H [facility] Last Admin: 09/07/17 08:49 Dose: 1 puff Sodium Bicarbonate (Sodium Bicarbonate Tab) 650 mg PO Q12 [facility] Last Admin: 09/07/17 08:50 Dose: 650 mg Trazodone HCl (Desyrel) 100 mg PO [facility] Last Admin: 09/03/17 00:30 Dose: Not Given Zolpidem Tartrate (Ambien) 5 mg PO [facility] Last Admin: 09/06/17 23:44 Dose: 5 mg Results - Vital Signs Recent Vital Signs: Last Vital Signs Temp 97.8 F 09/07/17 08:13 Pulse 80 09/07/17 14:19 Resp 17 09/07/17 14:19 BP 134/69 09/07/17 08:50 Pulse Ox 96 09/07/17 14:19 - Labs Result Diagrams: 09/07/17 05:30 09/07/17 05:30 Labs: Laboratory Results - last 24 hr 09/07/17 09/07/17 05:30 05:30 WBC 18.2 H RBC 2.68 L Hgb 8.8 L D Hct 25.8 L MCV 96.5 MCH 32.8 H MCHC 34.0 RDW 13.3 Plt Count 236 Sodium 128 L Potassium 4.0 Chloride 93 L Carbon Dioxide 28 Anion Gap 11 BUN 17 Creatinine 0.9 Est GFR ( Amer) > 60 Est GFR (Non-Af Amer) > 60 Random Glucose 91 Calcium 8.6 Total Bilirubin 0.5 AST 38 H ALT 41 Alkaline Phosphatase 45 Total Protein 5.0 L Albumin 2.7 L Globulin 2.4 Albumin/Globulin Ratio 1.1 Attending/Attestation - Attestation I have personally seen and examined this patient.: Yes I have fully participated in the care of the patient.: Yes I have reviewed all pertinent clinical information: Yes Notes (Text): 09/07/17 15:34 67 year old female with h/o COPD, HTN, CAD admitted with NSTEMI and COPD exacervation s/p cardiac cath, on dual antiplatelet therapy and also received brillinta and lovenox. We are consulted for anemia. She has acute blood loss anemia. She has significant eccyhmoses in the groin at the site of cath and likely developed a hematoma there as a consequence of anticoagulation/ procedure. She has no signs of GI bleeding, with green/brown output from the ileostomy. Would recommend cardiology eval of hematoma. Supportive measures. No indication for urgent endoscopy. Recommend PPI daily. Will sign off.
[2017-09-07 16:14] LABS: MEAN CELL VOLUME 96.5 fl (81.0-99.0); MEAN CORPUSCULAR HGB CONC 33.2 g/dL (33.0-37.0); RBC 2.8 Mil/uL (3.80-5.20); RED CELL DISTRIBUTION WIDTH 13.2 % (11.5-14.5); WHITE BLOOD COUNT 16.3 K/uL (4.8-10.8)
[2017-09-07] MEDS: Azithromycin 500 MG in Sodium Chloride 0.9% 250 ML IVPB SCH (17:02)
[2017-09-08] MEDS: Albuterol-Ipratrop 3 mg / 0.5 (3 ml) UD INH SCH ×5 (04:24→19:25)
[2017-09-08 07:07] LABS: ALB/GLOB RATIO 1.1 (1.0-2.1); ALBUMIN 2.5 g/dL (3.5-5.0); ALT/SGPT 48 U/L (9-52); AST/SGOT 33 U/L (14-36); BLOOD UREA NITROGEN 12 mg/dl (7-17); CALCIUM 8.4 mg/dL (8.4-10.2); GFR AFRICAN-AMERICAN > 60; GFR NON-AFRICAN AMERICAN > 60
[2017-09-08 07:09] LABS: MEAN CELL VOLUME 96.9 fl (81.0-99.0); MEAN CORPUSCULAR HEMOGLOBIN 32.7 pg (27.0-31.0); MEAN CORPUSCULAR HGB CONC 33.7 g/dL (33.0-37.0); RBC 2.46 Mil/uL (3.80-5.20); RED CELL DISTRIBUTION WIDTH 13.3 % (11.5-14.5)
--- NOTE | 2017-09-08 08:24 | PN ---
DATE: 09/06/2017 SUBJECTIVE: The patient is seen and examined. Interim events noted. Consults noted and appreciated. The patient remains in regular medical floor still complains of generalized weakness, also needed . No chest pain. No shortness of breath at this time. Sleeping actually has improved a lot. PHYSICAL EXAMINATION: GENERAL: The patient is in no acute distress. VITAL SIGNS: Stable. HEART: S1 and S2, normal and regular. LUNGS: Improved bilateral air exchange. ABDOMEN: Soft and nontender. EXTREMITIES: No edema. No calf swelling. No tenderness. No acute ischemia. The patient has ecchymosis cardiac . The patient also had little bleeding episode overnight, but now it has stopped. SENIOR QA TESTER: Essentially unchanged. DIAGNOSTIC DATA: Available diagnostic data reviewed. PLAN: Overall, the patient's general medical condition is stable and improving. Plan as ordered. Porfirio Munson MD
--- NOTE | 2017-09-08 08:48 | CP.PCM.PN ---
Subjective - Date & Time of Evaluation Date of Evaluation: 09/08/17 Time of Evaluation: 08:48 - Subjective Subjective: FEELS MUCH BETTER LESS ANXIOUS NO CHEST PAINS SOB LESS Objective - Vital Signs/Intake and Output Vital Signs (last 24 hours): Temp Pulse Resp BP Pulse Ox 97.7 F 82 20 147/67 99 09/08/17 07:54 09/08/17 07:54 09/08/17 07:54 09/08/17 07:54 09/08/17 07:54 - Medications Medications: Current Medications Albuterol/Ipratropium (Duoneb 3 Mg/0.5 Mg (3 Ml) Ud) 3 ml INH RQ4 [facility] Last Admin: 09/08/17 08:04 Dose: 3 ml Alprazolam (Xanax) 0.5 mg PO HS [facility] Last Admin: 09/07/17 21:18 Dose: 0.5 mg Alprazolam (Xanax) 0.5 mg PO Q8 [facility] Last Admin: 09/08/17 01:11 Dose: 0.5 mg Aspirin (Ecotrin) 81 mg PO DAILY [facility] Last Admin: 09/07/17 08:50 Dose: 81 mg Atorvastatin Calcium (Lipitor) 20 mg PO DAILY [facility] Last Admin: 09/07/17 08:50 Dose: 20 mg Calcium/Vitamin D (Oyster Shell Calcium/Vitamin D 500 Mg-200 Iu) 1 tab PO DAILY [facility] Last Admin: 09/07/17 08:49 Dose: 1 tab Clopidogrel Bisulfate (Plavix) 75 mg PO DAILY [facility] Last Admin: 09/07/17 08:50 Dose: 75 mg Cyanocobalamin (Vitamin B12 1000 Mcg/Ml Inj) 1,000 mcg IM Q14D [facility] Last Admin: 09/02/17 23:16 Dose: 1,000 mcg Enoxaparin Sodium (Lovenox) 40 mg SC DAILY [facility] PRN Reason: Protocol Last Admin: 09/07/17 08:51 Dose: 40 mg Ergocalciferol (Drisdol 50,000 Intl Units Cap) 1 cap PO MO [facility] Ferrous Sulfate (Feosol) 325 mg PO BID [facility] Last Admin: 09/07/17 17:03 Dose: 325 mg Fluticasone Propionate (Flonase) 2 spr PRATIBHA HS PRN PRN Reason: Allergy symptoms Last Admin: 09/06/17 23:47 Dose: 2 spr Ceftriaxone Sodium 1 gm/ (Sodium Chloride) 100 mls @ 100 mls/hr IVPB DAILY@ 1600 [facility] PRN Reason: Protocol Last Admin: 09/07/17 16:10 Dose: 100 mls/hr Azithromycin 500 mg/ Sodium (Chloride) 250 mls @ 250 mls/hr IVPB DAILY@1800 [facility] PRN Reason: Protocol Last Admin: 09/07/17 17:02 Dose: 250 mls/hr Losartan Potassium (Cozaar) 12.5 mg PO DAILY [facility] Last Admin: 09/07/17 08:51 Dose: 12.5 mg Methylprednisolone (Solu-Medrol) 40 mg IV DAILY [facility] Last Admin: 09/07/17 10:17 Dose: 40 mg Metoprolol Succinate (Toprol Xl) 25 mg PO DAILY [facility] Last Admin: 09/07/17 08:50 Dose: 25 mg Multivitamins/Minerals (Therapeutic-M Tab) 1 tab PO DAILY [facility] Last Admin: 09/07/17 08:49 Dose: 1 tab Nicotine (Nicoderm Cq) 1 patch TD DAILY [facility] Last Admin: 09/07/17 08:51 Dose: 1 patch Octreotide Acetate (Sandostatin) 100 mcg SC Q12 [facility] Last Admin: 09/07/17 21:22 Dose: 100 mcg Pantoprazole Sodium (Protonix Ec Tab) 40 mg PO DAILY [facility] Last Admin: 09/07/17 08:50 Dose: 40 mg Fluticasone/Salmeterol (Advair Diskus 250/50) 1 puff IH Q12H [facility] Last Admin: 09/07/17 21:22 Dose: 1 puff Sodium Bicarbonate (Sodium Bicarbonate Tab) 650 mg PO Q12 [facility] Last Admin: 09/07/17 21:19 Dose: 650 mg Trazodone HCl (Desyrel) 100 mg PO [facility] Last Admin: 09/03/17 00:30 Dose: Not Given Zolpidem Tartrate (Ambien) 5 mg PO [facility] Last Admin: 09/07/17 21:58 Dose: 5 mg - Labs Labs: 09/08/17 05:50 09/08/17 05:50 - Constitutional Appears: No Acute Distress - Head Exam Head Exam: ATRAUMATIC, NORMAL INSPECTION, NORMOCEPHALIC - Eye Exam Eye Exam: EOMI, Normal appearance, PERRL Pupil Exam: NORMAL ACCOMODATION, PERRL - ENT Exam ENT Exam: Mucous Membranes Moist, Normal Exam - Neck Exam Neck Exam: Full ROM, Normal Inspection. absent: Lymphadenopathy - Respiratory Exam Respiratory Exam: Clear to Ausculation Bilateral, Prolonged Expiratory Phase, NORMAL BREATHING PATTERN - Cardiovascular Exam Cardiovascular Exam: REGULAR RHYTHM, +S1, +S2. absent: Murmur - GI/Abdominal Exam GI & Abdominal Exam: Soft, Normal Bowel Sounds. absent: Tenderness - Rectal Exam Rectal Exam: NORMAL INSPECTION - Extremities Exam Extremities Exam: Full ROM, Normal Capillary Refill, Normal Inspection. absent : Joint Swelling, Pedal Edema - Back Exam Back Exam: NORMAL INSPECTION - Neurological Exam Neurological Exam: Alert, Awake, CN II-XII Intact, Normal Gait, Oriented x3 - Psychiatric Exam Psychiatric exam: Normal Affect, Normal Mood - Skin Skin Exam: Dry, Intact, Normal Color, Warm Assessment and Plan - Assessment and Plan (Free Text) Assessment: COPD IMPROVED S/P ACUTE PR DM ANXIETY Plan: CONTINUE PRESENT RX PT EVAL OK TO GO TO TCU IF APPROVED BY DR TINAJERO
[2017-09-08] MEDS: Fluticasone-Salmeterol 250-50mcg Diskus IH SCH ×2 (08:57→21:34)
[2017-09-08] MEDS: Enoxaparin 40 mg Syringe SC SCH (09:01)
[2017-09-08] MEDS: Calcium-Vit D 500 mg-200 Units Tab UD PO SCH (09:02)
[2017-09-08] MEDS: Pantoprazole 40 mg EC Tab PO SCH (09:03)
[2017-09-08] MEDS: MethylPREDNISolone 40 mg Vial IV SCH (09:06)
[2017-09-08] MEDS: Multivitamin With Minerals Tab PO SCH (09:07)
[2017-09-08] MEDS: Metoprolol Succinate 25 mg XL Tab PO SCH (09:07)
--- NOTE | 2017-09-08 14:46 | CP.PCM.PCO ---
Assessment/Plan - Assessment/Plan Assessment (Free Text): Pt stable, seen and cleared for d/c to TCU by all consultants. Pt seen and cleared for d/c to TCU by Dr. Munson. Cbc and chemistry reviewed with Dr. Munson Per Dr. Munson pt. may be transferred to TCU, he will monitor pt there
[2017-09-08 16:21] VITALS: BP 132/68; PULSE 83; RESP 19; TEMP 97.5; O2SAT 97
[2017-09-08] MEDS: Azithromycin 500 MG in Sodium Chloride 0.9% 250 ML IVPB SCH (17:37)
[2017-09-08] MEDS ORDERED: Ergocalciferol 50,000 Intl Units Cap PO SCH (21:07)
[2017-09-09] MEDS: Albuterol-Ipratrop 3 mg / 0.5 (3 ml) UD INH SCH (00:26)
--- NOTE | 2017-09-09 09:07 | PN ---
DATE: 09/08/2017 SUBJECTIVE: The patient is seen and examined. Interim events noted and appreciated. The patient had low hemoglobin. GI consult was requested, which is noted and appreciated. The patient is sleepy, arousable but does not want to get into conversation at this time as the patient has poor sleep, but denies any chest pain or shortness of breath. No specific issue reported by nursing staff other than lack of sleep. PHYSICAL EXAMINATION: GENERAL: The patient is in no acute distress. VITAL SIGNS: Stable. HEART: S1, S2, normal and regular. LUNGS: Improved bilateral air exchange. ABDOMEN: Soft, nontender. Ecchymosis is slowly resolving. No edema, no calf swelling. No tenderness. No acute ischemia. RELATIONSHIP MANAGEMENT LEAD: Essentially unchanged. DIAGNOSTIC DATA: Available diagnostic data reviewed. ASSESSMENT: Overall, the patient's general medical condition is stable. PLAN: Plan as ordered. Porfirio Munson MD
== END 2017-09-08 23:00 | DRG 190 ==
LOC: H.ER 16:04 → H.ERHOLD 17:42 → H.TEL 22:10 → H.ICU/CCU 09-03 13:32 → H.MEDSURG1 09-05 21:10
PROVIDERS: ADMIT Internal Medicine; ATTEND Internal Medicine
PROC: 3E0F73Z Introduction of Anti-inflammatory into Respiratory Tract, Via Natural or Artificial Opening (ICD-10-PCS; principal; 2017-09-02)
PROC: 4A023N7 Measurement of Cardiac Sampling and Pressure, Left Heart, Percutaneous Approach (ICD-10-PCS; 2017-09-03)
PROC: B205YZZ Plain Radiography of Left Heart using Other Contrast (ICD-10-PCS; 2017-09-03)
DX: J44.1 Chronic obstructive pulmonary disease with (acute) exacerbation (principal); I21.09 ST elevation (STEMI) myocardial infarction involving other coronary artery of anterior wall; E87.1 Hypo-osmolality and hyponatremia; D62 Acute posthemorrhagic anemia; J06.9 Acute upper respiratory infection, unspecified; E11.9 Type 2 diabetes mellitus without complications; I25.10 Atherosclerotic heart disease of native coronary artery without angina pectoris; F41.0 Panic disorder [episodic paroxysmal anxiety]; I10 Essential (primary) hypertension; M79.7 Fibromyalgia; F17.210 Nicotine dependence, cigarettes, uncomplicated; Z93.2 Ileostomy status; Z88.2 Allergy status to sulfonamides; Z79.51 Long term (current) use of inhaled steroids; Z90.710 Acquired absence of both cervix and uterus

== ENCOUNTER 2017-09-08 17:11 | Inpatient (IN) | payer OTHER ==
[2017-09-09] MEDS ORDERED: Patient's Own Med (Budesonide/Formoterol Fumarate [Symbicort 160-4.5 Mcg Inhaler] 2 PUFF) IH SCH (00:30)
[2017-09-09] MEDS: Albuterol-Ipratrop 3 mg / 0.5 (3 ml) UD INH SCH ×7 (06:14→23:42)
[2017-09-09 06:44] LABS: HEMOGLOBIN 7.6 g/dL (12.0-16.0); MEAN CORPUSCULAR HEMOGLOBIN 32.2 pg (27.0-31.0); MEAN CORPUSCULAR HGB CONC 32.8 g/dL (33.0-37.0); RBC 2.35 Mil/uL (3.80-5.20); RED CELL DISTRIBUTION WIDTH 13.7 % (11.5-14.5); WHITE BLOOD COUNT 19.7 K/uL (4.8-10.8)
--- NOTE | 2017-09-09 07:00 | CP.PCM.HP ---
<Anthony Rene - Last Filed: 09/09/17 11:04> History of Present Illness - History of Present Illness History of Present Illness: Evaluated with DR Munson this morning 67 F w/ PMhx of COPD, HTN, ileostomy, who was admitted to hosp for COPD exacerbation and found to have AWMI, had a cath which revealed some LAD disease , but was " auto lysed" so no stent was deployed. Patient recovered well cardiac and respiratory moses and was admitted to TCU yesterday for PT although for the past 2 days her hgb has been trending down to 7.6 today. She denies any BRBPR or in her ilieostomy bag. Denies any melena, hematemesis or coffee-ground emesis. She denies any abd pain. She does noted marked echymosis around her IV site, inguinal area. C/O feeling feet cold. She developed big ecchymotic areas in UE after CC and anticoagulation. PMHx: HTN, COPD, CAD PSHx: Iliostomy Family hx: denies [place] hx: longer term smoker > 30 years, at least 1PPD, social drinker, denies any illicit drugs Endo hx: EGD 2014: gastritis, esophageal stricture, hiatial hernia Present on Admission - Present on Admission Any Indicators Present on Admission: No Review of Systems - Review of Systems All systems: reviewed and no additional remarkable complaints except Review of Systems: as per HPi Past Patient History - Past Medical History & Family History Past Medical History?: Yes - Past Social History Smoking Status: Light Smoker < 10 Cigarettes Daily - CARDIAC Hx Cardiac Disorders: Yes Hx Hypertension: Yes Other/Comment: S/P cardiac cath - PULMONARY Hx Respiratory Disorders: Yes Hx Chronic Obstructive Pulmonary Disease (COPD): Yes Hx Emphysema: Yes - NEUROLOGICAL Hx Neurological Disorder: Yes Other/Comment: FIBROMYALGIA - HEENT Hx HEENT Problems: No - RENAL Hx Chronic Kidney Disease: No - ENDOCRINE/METABOLIC Hx Endocrine Disorders: No - HEMATOLOGICAL/ONCOLOGICAL Hx AIDS: No Hx Human Immunodeficiency Virus (HIV): No - INTEGUMENTARY Hx Dermatological Problems: No - MUSCULOSKELETAL/RHEUMATOLOGICAL Hx Falls: No - GASTROINTESTINAL Hx Gastrointestinal Disorders: Yes Hx Ileostomy: Yes - GENITOURINARY/GYNECOLOGICAL Hx Genitourinary Disorders: No - PSYCHIATRIC Hx Substance Use: No - SURGICAL HISTORY Hx Surgeries: Yes Hx Cholecystectomy: Yes Hx Herniorrhaphy: Yes Hx Hysterectomy: Yes - ANESTHESIA Hx Anesthesia: Yes Hx Anesthesia Reactions: No Hx Malignant Hyperthermia: No Meds Allergies/Adverse Reactions: Allergies Allergy/AdvReac Type Severity Reaction Status Date / Time Sulfa (Sulfonamide Allergy crystallized Verified 09/08/17 23:14 Antibiotics) kidneys Physical Exam - Constitutional Appears: Non-toxic, No Acute Distress - Eye Exam Eye Exam: EOMI, PERRL - ENT Exam ENT Exam: Mucous Membranes Moist - Respiratory Exam Respiratory Exam: NORMAL BREATHING PATTERN. absent: Rales, Respiratory Distress - Cardiovascular Exam Cardiovascular Exam: REGULAR RHYTHM, +S1, +S2. absent: Gallop - GI/Abdominal Exam GI & Abdominal Exam: Normal Bowel Sounds, Soft. absent: Tenderness Additional comments: Ileostomy bag intact. Greenish/brownish content in bag. - Extremities Exam Extremities exam: Positive for: normal capillary refill, pedal pulses present. Negative for: calf tenderness - Neurological Exam Neurological exam: Alert, Oriented x3 - Psychiatric Exam Psychiatric exam: Normal Affect, Normal Mood - Skin Skin Exam: Pallor, Warm Results - Vital Signs Recent Vital Signs: Last Vital Signs Temp Pulse Resp 20 09/09/17 01:24 BP Pulse Ox 93 L 09/09/17 01:24 - Labs Result Diagrams: 09/09/17 06:15 Assessment & Plan - Assessment and Plan (Free Text) Assessment: S/P AWMI C/W dual antiplatelet therapy C/W Statins, BB and ARbs Cardio consult appreciated C/W PT services Stable COPD exacerbation Improved C/W Current therapy Pulm consult appreciated Acute anemia Hgb trending down 7.6 today Big ecchymotic areas hold lovenox for now GI consult appreciated Hem-Onc consult ordered F/U Iron studies, Haptoglobin, Retic count Will order 2 units of PRBC <Porfirio Munson K - Last Filed: 09/13/17 10:54> Results - Vital Signs Recent Vital Signs: Last Vital Signs Temp 97.9 F 09/13/17 08:25 Pulse 78 09/13/17 09:34 Resp 20 09/13/17 08:25 BP 133/60 09/13/17 09:34 Pulse Ox 99 09/13/17 08:25 - Labs Result Diagrams: 09/12/17 06:50 Assessment & Plan - Assessment and Plan (Free Text) Assessment: Patient was personally seen and examined by me in rounds with residents. Available labs and diagnostic data reviewed. Case, patient's conditions and management plan discussed with residents in rounds. Agree with resident's progress note. Plan: As ordered.
--- NOTE | 2017-09-09 07:40 | CP.PCM.CON ---
<German Acuna - Last Filed: 09/09/17 08:32> History of Present Illness - History of Present Illness History of Present Illness: PGY5 GI Fellow Consult Note Patient is a 67yo female with PMHx significant for COPD, HTN, recent STEMI (09/03) s/p auto-lysis of an LAD lesion on cardiac catheterization, CAD with wall motion abnormality and systolic CHF with EF~30% who presented initially with chest pain and SOB and has now been moved to TCU. Our service was consulted following cardiac catheterization to evaluate patient for anemia. She remains on dual anti-platelet therapy with ASA/Plavix as well as anticoagulation with Lovenox daily. The patient has had no signs of overt GI blood loss and has only had brown/green stool in her ostomy. She did however develop eccymosis following her catheterization and blood loss was thought to be secondary to the procedure and eccymosis formation. She continues to have no evidence of overt GI blood loss. PMHx: See HPI PSHx: Ventral hernia repair with complications leading to need for permanent ileostomy, PCI FHx: Discussed with patient and she denies any significant family history Social: Extensive smoking history (3ppd at one point), occasional EtOH, denies illicit drug use Endo: EGD - 07/2013 - Esophageal stricture and spasm, hiatal hernia, gastric erosion 12 system ROS performed and negative except where stated Past Patient History - Past Medical History & Family History Past Medical History?: Yes - Past Social History Smoking Status: Light Smoker < 10 Cigarettes Daily - CARDIAC Hx Cardiac Disorders: Yes Hx Hypertension: Yes Other/Comment: S/P cardiac cath - PULMONARY Hx Respiratory Disorders: Yes Hx Chronic Obstructive Pulmonary Disease (COPD): Yes Hx Emphysema: Yes - NEUROLOGICAL Hx Neurological Disorder: Yes Other/Comment: FIBROMYALGIA - HEENT Hx HEENT Problems: No - RENAL Hx Chronic Kidney Disease: No - ENDOCRINE/METABOLIC Hx Endocrine Disorders: No - HEMATOLOGICAL/ONCOLOGICAL Hx AIDS: No Hx Human Immunodeficiency Virus (HIV): No - INTEGUMENTARY Hx Dermatological Problems: No - MUSCULOSKELETAL/RHEUMATOLOGICAL Hx Falls: No - GASTROINTESTINAL Hx Gastrointestinal Disorders: Yes Hx Ileostomy: Yes - GENITOURINARY/GYNECOLOGICAL Hx Genitourinary Disorders: No - PSYCHIATRIC Hx Substance Use: No - SURGICAL HISTORY Hx Surgeries: Yes Hx Cholecystectomy: Yes Hx Herniorrhaphy: Yes Hx Hysterectomy: Yes - ANESTHESIA Hx Anesthesia: Yes Hx Anesthesia Reactions: No Hx Malignant Hyperthermia: No Meds Allergies/Adverse Reactions: Allergies Allergy/AdvReac Type Severity Reaction Status Date / Time Sulfa (Sulfonamide Allergy crystallized Verified 09/08/17 23:14 Antibiotics) kidneys - Medications Medications: Current Medications Albuterol/Ipratropium (Duoneb 3 Mg/0.5 Mg (3 Ml) Ud) 3 ml INH RQ4 [facility] Last Admin: 09/09/17 06:14 Dose: Not Given Alprazolam (Xanax) 0.5 mg PO Q8@0600,1400,2200 [facility] Last Admin: 09/09/17 06:09 Dose: 0.5 mg Aspirin (Ecotrin) 81 mg PO DAILY [facility] Atorvastatin Calcium (Lipitor) 20 mg PO DAILY [facility] Calcium/Vitamin D (Oyster Shell Calcium/Vitamin D 500 Mg-200 Iu) 1 tab PO DAILY [facility] Ceftriaxone Sodium (Rocephin) 1 gm IM DAILY [facility] PRN Reason: Protocol Clopidogrel Bisulfate (Plavix) 75 mg PO DAILY [facility] Cyanocobalamin (Vitamin B12 1000 Mcg/Ml Inj) 1,000 mcg IM Q2W [facility] Enoxaparin Sodium (Lovenox) 40 mg SC DAILY [facility] PRN Reason: Protocol Ergocalciferol (Drisdol 50,000 Intl Units Cap) 1 cap PO MO [facility] Ferrous Sulfate (Feosol) 325 mg PO BID [facility] Fluticasone Propionate (Flonase) 2 spr PRATIBHA HS PRN PRN Reason: Allergy symptoms Hydromorphone HCl (Dilaudid) 1 mg PO Q12 [facility] PRN Reason: for pain 8-10 Azithromycin 500 mg/ Sodium (Chloride) 250 mls @ 250 mls/hr IVPB DAILY [facility] PRN Reason: Protocol Losartan Potassium (Cozaar) 12.5 mg PO DAILY [facility] Methylprednisolone (Solu-Medrol) 40 mg IV DAILY [facility] Metoprolol Succinate (Toprol Xl) 25 mg PO DAILY [facility] Multivitamins/Minerals (Therapeutic-M Tab) 1 tab PO DAILY [facility] Nicotine (Nicoderm Cq) 1 patch TD DAILY [facility] Octreotide Acetate (Sandostatin) 100 mcg SC Q12 [facility] Pantoprazole Sodium (Protonix Ec Tab) 40 mg PO DAILY [facility] Fluticasone/Salmeterol (Advair Diskus 250/50) 1 puff IH Q12 [facility] Sodium Bicarbonate (Sodium Bicarbonate Tab) 650 mg PO Q12 [facility] Zolpidem Tartrate (Ambien) 5 mg PO [facility] Last Admin: 09/09/17 01:00 Dose: 5 mg Zolpidem Tartrate (Ambien) 5 mg PO [facility] Physical Exam - Constitutional Appears: Non-toxic, No Acute Distress - Eye Exam Eye Exam: EOMI, PERRL - ENT Exam ENT Exam: Mucous Membranes Moist - Respiratory Exam Respiratory Exam: Decreased Breath Sounds. absent: Rales, Rhonchi, Wheezes - Cardiovascular Exam Cardiovascular Exam: RRR, +S1, +S2 - GI/Abdominal Exam GI & Abdominal Exam: Normal Bowel Sounds, Soft. absent: Distended, Firm, Guarding, Organomegaly, Rigid, Tenderness Additional comments: ostomy patent in RLQ with green/brown stool - Extremities Exam Extremities exam: Negative for: pedal edema Additional comments: significant ecchymosis on RUE - Neurological Exam Neurological exam: Alert, Oriented x3 - Psychiatric Exam Psychiatric exam: Normal Affect, Normal Mood - Skin Skin Exam: Dry, Warm Additional comments: right flank, thigh ecchymosis noted extending to pelvic area Results - Vital Signs Recent Vital Signs: Last Vital Signs Temp Pulse Resp 20 09/09/17 01:24 BP Pulse Ox 93 L 09/09/17 01:24 - Labs Result Diagrams: 09/09/17 06:15 Assessment & Plan - Assessment and Plan (Free Text) Assessment: Patient is a 67yo female with PMHx significant for COPD, HTN, recent STEMI (09/03) s/p auto-lysis of an LAD lesion on cardiac catheterization, CAD with wall motion abnormality and systolic CHF with EF~30% who presented initially with chest pain and SOB and has now been moved to TCU -Acute blood loss anemia following PCI, on dual antiplatelet therapy -Significant ecchymosis on RUE and RLE -Multi-vessel CAD with recent STEMI -Systolic CHF with EF 30% on recent catheterization -COPD -HTN Plan: -There is no evidence of overt GI blood loss, however there is significant ecchymosis of the RUE, right thigh extending to the pelvis -Suspect losses as a result of recent procedure/instrumentation with noted ecchymosis stated above -Continue Protonix 40mg PO QAMAC -Check iron studies, LDH, haptoglobin, reticulocyte count -No indication for urgent endoscopic interventions at this time -Consider further GI evaluation once patient returns home unless patient develops overt bleeding; however, given multiple co-morbidities and need for DAP therapy with recent STEMI/CAD, it is unlikely therapeutic options will be available until acute cardiac and pulmonary issues stabilize -Supportive care, transfusion support as needed - goal HGB per cardiology recommendations -Ambulation as tolerated -Miralax to prevent constipation PRN - Date & Time Date: 09/09/17 Time: 07:41 <Edmundo Nichole - Last Filed: 09/09/17 14:55> Meds - Medications Medications: Current Medications Albuterol/Ipratropium (Duoneb 3 Mg/0.5 Mg (3 Ml) Ud) 3 ml INH RQ4 [facility] Last Admin: 09/09/17 11:42 Dose: 3 ml Alprazolam (Xanax) 0.5 mg PO Q8@0600,1400,2200 [facility] Last Admin: 09/09/17 06:09 Dose: 0.5 mg Aspirin (Ecotrin) 81 mg PO DAILY [facility] Last Admin: 09/09/17 09:08 Dose: 81 mg Atorvastatin Calcium (Lipitor) 20 mg PO DAILY [facility] Last Admin: 09/09/17 09:10 Dose: 20 mg Calcium/Vitamin D (Oyster Shell Calcium/Vitamin D 500 Mg-200 Iu) 1 tab PO DAILY [facility] Last Admin: 09/09/17 09:09 Dose: 1 tab Ceftriaxone Sodium (Rocephin) 1 gm IM DAILY [facility] PRN Reason: Protocol Clopidogrel Bisulfate (Plavix) 75 mg PO DAILY [facility] Last Admin: 09/09/17 09:11 Dose: 75 mg Cyanocobalamin (Vitamin B12 1000 Mcg/Ml Inj) 1,000 mcg IM Q2W [facility] Enoxaparin Sodium (Lovenox) 40 mg SC DAILY [facility] PRN Reason: Protocol Last Admin: 09/09/17 09:08 Dose: 40 mg Ergocalciferol (Drisdol 50,000 Intl Units Cap) 1 cap PO MO [facility] Ferrous Sulfate (Feosol) 325 mg PO BID [facility] Last Admin: 09/09/17 09:09 Dose: 325 mg Fluticasone Propionate (Flonase) 2 spr PRATIBHA HS PRN PRN Reason: Allergy symptoms Hydromorphone HCl (Dilaudid) 1 mg PO Q12 PRN PRN Reason: for pain 8-10 Azithromycin 500 mg/ Sodium (Chloride) 250 mls @ 250 mls/hr IVPB DAILY [facility] PRN Reason: Protocol Losartan Potassium (Cozaar) 12.5 mg PO DAILY [facility] Last Admin: 09/09/17 09:08 Dose: 12.5 mg Methylprednisolone (Solu-Medrol) 40 mg IV DAILY [facility] Last Admin: 09/09/17 12:41 Dose: 40 mg Metoprolol Succinate (Toprol Xl) 25 mg PO DAILY [facility] Last Admin: 09/09/17 09:09 Dose: 25 mg Multivitamins/Minerals (Therapeutic-M Tab) 1 tab PO DAILY [facility] Last Admin: 09/09/17 09:09 Dose: 1 tab Nicotine (Nicoderm Cq) 1 patch TD DAILY [facility] Last Admin: 09/09/17 09:10 Dose: 1 patch Pantoprazole Sodium (Protonix Ec Tab) 40 mg PO DAILY [facility] Last Admin: 09/09/17 09:09 Dose: 40 mg Fluticasone/Salmeterol (Advair Diskus 250/50) 1 puff IH Q12 [facility] Last Admin: 09/09/17 09:07 Dose: 1 puff Sodium Bicarbonate (Sodium Bicarbonate Tab) 650 mg PO Q12 [facility] Last Admin: 09/09/17 09:10 Dose: 650 mg Zolpidem Tartrate (Ambien) 5 mg PO HS [facility] Last Admin: 09/09/17 01:00 Dose: 5 mg Zolpidem Tartrate (Ambien) 5 mg PO HS [facility] Results - Vital Signs Recent Vital Signs: Last Vital Signs Temp 98.1 F 09/09/17 09:04 Pulse 78 09/09/17 10:34 Resp 20 09/09/17 09:04 BP 115/55 L 09/09/17 09:09 Pulse Ox 95 09/09/17 10:34 - Labs Result Diagrams: 09/09/17 06:15 Labs: Laboratory Results - last 24 hr 09/09/17 09/09/17 09/09/17 06:15 08:30 08:30 WBC 19.7 H RBC 2.35 L Hgb 7.6 L Hct 23.1 L MCV 98.0 MCH 32.2 H MCHC 32.8 L RDW 13.7 Plt Count 234 Retic Count 5.0 H Iron TIBC % Saturation Ferritin 169.0 Lactate Dehydrogenase 380 Vitamin B12 Blood Type Antibody Screen Crossmatch BBK History Checked 03/12/2209/09/17 09/09/17 08:30 10:22 12:25 WBC RBC Hgb Hct MCV MCH MCHC RDW Plt Count Retic Count Iron 56 TIBC 286 % Saturation 20 Ferritin Lactate Dehydrogenase Vitamin B12 > 1000 H Blood Type O POSITIVE Antibody Screen Negative Crossmatch See Detail BBK History Checked Patient has bt Attending/Attestation - Attestation I have personally seen and examined this patient.: Yes I have fully participated in the care of the patient.: Yes I have reviewed all pertinent clinical information: Yes Notes (Text): 09/09/17 14:46 Patient seen and examined at bedside this am with GI fellow. In a nutshell this is a 67 yr old female with PMHx significant for COPD, HTN, recent STEMI (09/03/17 ) s/p cardiac catheterization, CAD with wall motion abnormality and systolic CHF with EF~30% who presented initially with chest pain and SOB and has now been moved to TCU. GI consulted with slow drop in hb. Large echchymotic area in pelvis and groin. Concern for hematoma with hemolysis. Will get CT abdomen and pelvis to rule out bleeding. Will send hemolysis work up. No indication for urgent endoscopic interventions at this time. Supportive care, transfusion support as needed - goal HGB per cardiology recommendations
[2017-09-09] MEDS ORDERED: CALCIUM CARBONATE PO SCH (09:00)
[2017-09-09] MEDS ORDERED: Enoxaparin 40 mg Syringe SC SCH (09:00)
[2017-09-09] MEDS ORDERED: VITAMIN D3 PO SCH (09:00)
[2017-09-09] MEDS ORDERED: FOLIC ACID PO SCH (09:00)
[2017-09-09] MEDS ORDERED: IRON PO SCH (09:00)
[2017-09-09] MEDS ORDERED: Patient's Own Med (Omeprazole [Omeprazole] 40 MG) PO SCH (09:00)
[2017-09-09] MEDS ORDERED: MULTIVITAMIN PO SCH (09:00)
[2017-09-09] MEDS: Fluticasone-Salmeterol 250-50mcg Diskus IH SCH ×2 (09:07→21:03)
[2017-09-09] MEDS: Pantoprazole 40 mg EC Tab PO SCH (09:09)
[2017-09-09] MEDS: Multivitamin With Minerals Tab PO SCH (09:09)
[2017-09-09] MEDS: Metoprolol Succinate 25 mg XL Tab PO SCH (09:09)
[2017-09-09] MEDS: Calcium-Vit D 500 mg-200 Units Tab UD PO SCH (09:09)
[2017-09-09 09:14] LABS: IRON 56 ug/dL (37-170)
[2017-09-09 09:23] LABS: % IRON SATURATION 20 % (20-55); TOTAL IRON BINDING CAPACITY 286 ug/dL (250-450)
--- NOTE | 2017-09-09 10:04 | CON ---
DATE: HISTORY OF PRESENT ILLNESS: Mrs. Kaiser is a 67-year-old female who is well known to me from a medical floor. She was originally admitted with acute exacerbation of chronic obstructive pulmonary disease and diagnosed to have an acute myocardial infarction status post cardiac catheterization for revascularization. She is transferred to the Transitional Care Unit for further therapy and physical therapy. She indicates that shortness of breath has improved and she no longer has chest pains, but still feels weak and tired. PAST MEDICAL HISTORY: Remarkable for chronic obstructive pulmonary disease, status post colostomy placement, hypertension, and coronary artery disease. FAMILY HISTORY: Remarkable for sister who has COPD and hypertension and her brother who of complications following cerebrovascular accident. SOCIAL HISTORY: Socially, the patient continues to smoke cigarettes. Does not drink alcohol. 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 PHYSICAL EXAMINATION: GENERAL: The patient is alert, oriented, and very anxious. VITAL SIGNS: Blood pressure, pulse and respiratory rate all reviewed and within normal limits. O2 saturation is 98% on nasal cannula oxygen. SKIN: Shows fair turgor with ecchymosis of right thigh and upper extremities. HEENT: Central nervous system exam is grossly intact. Mouth shows fair hygiene. LUNGS: Fair aeration with some basal dullness and few rales. HEART: Regular. BREASTS: Normal. ABDOMEN: Soft. Colostomy in place. EXTREMITIES: Trace bilateral pitting edema. CENTRAL NERVOUS SYSTEM: Exam grossly intact. LABORATORY DATA: Remarkable for hemoglobin of 7.6, WBC of 19.7, and platelet count of 234,000. IMPRESSION: Acute exacerbation of chronic obstructive pulmonary disease, improving with therapy, status post acute myocardial infarction, and anemia which is new probably secondary to some blood, loss but etiology has to be determined. Anxiety disorder and hyperlipidemia. PLAN: The plan is to continue therapy as ordered. The patient may need hematology intervention regarding transfusion of packed red blood cells or iron in view of decline in hemoglobin from 13 g to 7 g. We will continue to follow with you. Continue bronchodilator therapy and oxygen. Further therapy will depend on findings. Nam Huddleston MD
[2017-09-09] MEDS: MethylPREDNISolone 40 mg Vial IV SCH (12:41)
[2017-09-09] MEDS ORDERED: cefTRIAXone (Rocephin) 1 gm Inj IM SCH (16:00)
[2017-09-09] MEDS: Nystatin 100,000 Units/ml Oral Susp 5 ml UD PO SCH (21:01)
--- NOTE | 2017-09-09 21:09 | CP.PCM.CON ---
History of Present Illness - History of Present Illness History of Present Illness: 67 year old female with a history of tobacco abuse, COPD, admitted for COPD exacerbation, complicated by CA with autolysis of coronary thrombus, on dual antiplatelet therapy, currently admitted to TCU with progressive anemia. The patient reports to increased bruising. She denies overt abnormal bleeding. Review of her labs shows she was admitted with a normal hgb but has nadired today at 7.6. Past medical history: tobacco abuse, COPD, CAD Past surgical history: Hysterectomy Family history: Denies hematologic and oncologic problems Social history: 1ppd x 45 years, denies alcohol, and illicit drug use. Allergies: Sulfa Review of systems: All remaining review of systems including HEENT, cardiovascular, respiratory, gastrointestinal, genitourinary, musculoskeletal, dermatologic, neurologic, and psychiatric are negative unless mentioned in the HPI. Past Patient History - Past Medical History & Family History Past Medical History?: Yes - Past Social History Smoking Status: Light Smoker < 10 Cigarettes Daily - CARDIAC Hx Cardiac Disorders: Yes Hx Hypertension: Yes Other/Comment: S/P cardiac cath - PULMONARY Hx Respiratory Disorders: Yes Hx Chronic Obstructive Pulmonary Disease (COPD): Yes Hx Emphysema: Yes - NEUROLOGICAL Hx Neurological Disorder: Yes Other/Comment: FIBROMYALGIA - HEENT Hx HEENT Problems: No - RENAL Hx Chronic Kidney Disease: No - ENDOCRINE/METABOLIC Hx Endocrine Disorders: No - HEMATOLOGICAL/ONCOLOGICAL Hx AIDS: No Hx Human Immunodeficiency Virus (HIV): No - INTEGUMENTARY Hx Dermatological Problems: No - MUSCULOSKELETAL/RHEUMATOLOGICAL Hx Falls: No - GASTROINTESTINAL Hx Gastrointestinal Disorders: Yes Hx Ileostomy: Yes - GENITOURINARY/GYNECOLOGICAL Hx Genitourinary Disorders: No - PSYCHIATRIC Hx Substance Use: No - SURGICAL HISTORY Hx Surgeries: Yes Hx Cholecystectomy: Yes Hx Herniorrhaphy: Yes Hx Hysterectomy: Yes - ANESTHESIA Hx Anesthesia: Yes Hx Anesthesia Reactions: No Hx Malignant Hyperthermia: No Meds Allergies/Adverse Reactions: Allergies Allergy/AdvReac Type Severity Reaction Status Date / Time Sulfa (Sulfonamide Allergy crystallized Verified 09/08/17 23:14 Antibiotics) kidneys - Medications Medications: Current Medications Albuterol/Ipratropium (Duoneb 3 Mg/0.5 Mg (3 Ml) Ud) 3 ml INH RQ4 [facility] Last Admin: 09/09/17 19:33 Dose: 3 ml Alprazolam (Xanax) 0.5 mg PO Q8@0600,1400,2200 [facility] Last Admin: 09/09/17 21:00 Dose: 0.5 mg Aspirin (Ecotrin) 81 mg PO DAILY [facility] Last Admin: 09/09/17 09:08 Dose: 81 mg Atorvastatin Calcium (Lipitor) 20 mg PO DAILY [facility] Last Admin: 09/09/17 09:10 Dose: 20 mg Calcium/Vitamin D (Oyster Shell Calcium/Vitamin D 500 Mg-200 Iu) 1 tab PO DAILY [facility] Last Admin: 09/09/17 09:09 Dose: 1 tab Clopidogrel Bisulfate (Plavix) 75 mg PO DAILY [facility] Last Admin: 09/09/17 09:11 Dose: 75 mg Cyanocobalamin (Vitamin B12 1000 Mcg/Ml Inj) 1,000 mcg IM Q2W [facility] Enoxaparin Sodium (Lovenox) 40 mg SC DAILY [facility] PRN Reason: Protocol Last Admin: 09/09/17 09:08 Dose: 40 mg Ergocalciferol (Drisdol 50,000 Intl Units Cap) 1 cap PO MO [facility] Ferrous Sulfate (Feosol) 325 mg PO BID [facility] Last Admin: 09/09/17 17:14 Dose: 325 mg Fluticasone Propionate (Flonase) 2 spr PRATIBHA HS PRN PRN Reason: Allergy symptoms Hydromorphone HCl (Dilaudid) 1 mg PO Q12 PRN PRN Reason: for pain 8-10 Azithromycin 500 mg/ Sodium (Chloride) 250 mls @ 250 mls/hr IVPB DAILY [facility] PRN Reason: Protocol Ceftriaxone Sodium 1 gm/ (Dextrose) 100 mls @ 100 mls/hr IVPB DAILY@1700 [facility] PRN Reason: Protocol Last Admin: 09/09/17 20:47 Dose: 100 mls/hr Losartan Potassium (Cozaar) 12.5 mg PO DAILY [facility] Last Admin: 09/09/17 09:08 Dose: 12.5 mg Methylprednisolone (Solu-Medrol) 40 mg IV DAILY [facility] Last Admin: 09/09/17 12:41 Dose: 40 mg Metoprolol Succinate (Toprol Xl) 25 mg PO DAILY [facility] Last Admin: 09/09/17 09:09 Dose: 25 mg Multivitamins/Minerals (Therapeutic-M Tab) 1 tab PO DAILY [facility] Last Admin: 09/09/17 09:09 Dose: 1 tab Nicotine (Nicoderm Cq) 1 patch TD DAILY [facility] Last Admin: 09/09/17 09:10 Dose: 1 patch Nystatin (Nystatin Oral Susp) 5 ml PO QID [facility] Last Admin: 09/09/17 21:01 Dose: 5 ml Pantoprazole Sodium (Protonix Ec Tab) 40 mg PO DAILY [facility] Last Admin: 09/09/17 09:09 Dose: 40 mg Fluticasone/Salmeterol (Advair Diskus 250/50) 1 puff IH Q12 [facility] Last Admin: 09/09/17 21:03 Dose: 1 puff Sodium Bicarbonate (Sodium Bicarbonate Tab) 650 mg PO Q12 [facility] Last Admin: 09/09/17 21:01 Dose: 650 mg Zolpidem Tartrate (Ambien) 5 mg PO HS [facility] Last Admin: 09/09/17 01:00 Dose: 5 mg Physical Exam - Head Exam Head Exam: ATRAUMATIC - Eye Exam Eye Exam: Normal appearance - ENT Exam ENT Exam: Mucous Membranes Dry - Respiratory Exam Respiratory Exam: NORMAL BREATHING PATTERN - Cardiovascular Exam Cardiovascular Exam: +S1, +S2 - GI/Abdominal Exam GI & Abdominal Exam: Normal Bowel Sounds - Skin Skin Exam: Petechiae Additional comments: diffuse ecchymosis Results - Vital Signs Recent Vital Signs: Last Vital Signs Temp 97.2 F L 09/09/17 20:32 Pulse 87 09/09/17 20:32 Resp 20 09/09/17 20:32 BP 160/78 H 09/09/17 20:32 Pulse Ox 99 09/09/17 20:32 - Labs Result Diagrams: 09/09/17 06:15 Labs: Laboratory Results - last 24 hr 09/09/17 09/09/17 09/09/17 06:15 08:30 08:30 WBC 19.7 H RBC 2.35 L Hgb 7.6 L Hct 23.1 L MCV 98.0 MCH 32.2 H MCHC 32.8 L RDW 13.7 Plt Count 234 Retic Count 5.0 H Iron TIBC % Saturation Transferrin Ferritin 169.0 Lactate Dehydrogenase 380 Vitamin B12 Blood Type Antibody Screen Crossmatch [facility] History Checked 09/09/17 09/09/17 09/09/17 08:30 08:30 10:22 WBC RBC Hgb Hct MCV MCH MCHC RDW Plt Count Retic Count Iron 56 TIBC 286 % Saturation 20 Transferrin 200.89 L Ferritin Lactate Dehydrogenase Vitamin B12 > 1000 H Blood Type Antibody Screen Crossmatch BBK History Checked 09/09/17 12:25 WBC RBC Hgb Hct MCV MCH MCHC RDW Plt Count Retic Count Iron TIBC % Saturation Transferrin Ferritin Lactate Dehydrogenase Vitamin B12 Blood Type O POSITIVE Antibody Screen Negative Crossmatch See Detail [facility] History Checked Patient has bt Assessment & Plan (1) Anemia Assessment and Plan: hypoproliferative erythroid response; no evidence of hemolysis normal iron and b12 stores, f/u folate FOBT negative agree with transfusion support; 2U PRBC today ? blunted bone marrow response due to recent acute illness will check for monoclonal protein will consider Procrit supplementation if H/H cont. to decline despite transfusion Thank you for this interesting consult. Status: Acute
[2017-09-09] MEDS: Azithromycin 500 MG in Sodium Chloride 0.9% 250 ML IVPB SCH (21:49)
[2017-09-09 22:11] LABS: FOLATE > 20.0 ng/mL
[2017-09-10] MEDS: Albuterol-Ipratrop 3 mg / 0.5 (3 ml) UD INH SCH ×6 (05:00→23:40)
[2017-09-10 06:21] LABS: HEMOGLOBIN 9.7 g/dL (12.0-16.0); MEAN CORPUSCULAR HEMOGLOBIN 32.2 pg (27.0-31.0); MEAN CORPUSCULAR HGB CONC 33.9 g/dL (33.0-37.0); RED CELL DISTRIBUTION WIDTH 14.6 % (11.5-14.5); WHITE BLOOD COUNT 21.8 K/uL (4.8-10.8)
--- NOTE | 2017-09-10 07:35 | CP.PCM.PN ---
<Anthony Rene - Last Filed: 09/10/17 09:38> Subjective - Date & Time of Evaluation Date of Evaluation: 09/10/17 Time of Evaluation: 07:00 - Subjective Subjective: Evaluated at bedside with Dr Munson this morning Stable, feels improved after 1 unit of PRBC overnight, c/o multiple ecchymosis mostly R/leg one. Denies CP, SOB, dizziness. Concerned about ebcoming axnious at times but admits improvement with PO PRN meds. Objective - Vital Signs/Intake and Output Vital Signs (last 24 hours): Temp Pulse Resp BP Pulse Ox 97.2 F L 87 20 160/78 H 99 09/09/17 20:32 09/09/17 20:32 09/09/17 20:32 09/09/17 20:32 09/09/17 20:32 - Medications Medications: Current Medications Albuterol/Ipratropium (Duoneb 3 Mg/0.5 Mg (3 Ml) Ud) 3 ml INH RQ4 [facility] Last Admin: 09/10/17 05:00 Dose: 3 ml Alprazolam (Xanax) 0.5 mg PO Q8@0600,1400,2200 [facility] Last Admin: 09/10/17 05:19 Dose: 0.5 mg Aspirin (Ecotrin) 81 mg PO DAILY [facility] Last Admin: 09/09/17 09:08 Dose: 81 mg Atorvastatin Calcium (Lipitor) 20 mg PO DAILY [facility] Last Admin: 09/09/17 09:10 Dose: 20 mg Calcium/Vitamin D (Oyster Shell Calcium/Vitamin D 500 Mg-200 Iu) 1 tab PO DAILY [facility] Last Admin: 09/09/17 09:09 Dose: 1 tab Clopidogrel Bisulfate (Plavix) 75 mg PO DAILY [facility] Last Admin: 09/09/17 09:11 Dose: 75 mg Cyanocobalamin (Vitamin B12 1000 Mcg/Ml Inj) 1,000 mcg IM Q2W [facility] Ergocalciferol (Drisdol 50,000 Intl Units Cap) 1 cap PO MO [facility] Ferrous Sulfate (Feosol) 325 mg PO BID [facility] Last Admin: 09/09/17 17:14 Dose: 325 mg Fluticasone Propionate (Flonase) 2 spr PRATIBHA HS PRN PRN Reason: Allergy symptoms Hydromorphone HCl (Dilaudid) 1 mg PO Q12 PRN PRN Reason: for pain 8-10 Last Admin: 09/10/17 00:27 Dose: 1 mg Azithromycin 500 mg/ Sodium (Chloride) 250 mls @ 250 mls/hr IVPB DAILY [facility] PRN Reason: Protocol Last Admin: 09/09/17 21:49 Dose: 250 mls/hr Ceftriaxone Sodium 1 gm/ (Dextrose) 100 mls @ 100 mls/hr IVPB DAILY@1700 [facility] PRN Reason: Protocol Last Admin: 09/09/17 20:47 Dose: 100 mls/hr Losartan Potassium (Cozaar) 12.5 mg PO DAILY [facility] Last Admin: 09/09/17 09:08 Dose: 12.5 mg Methylprednisolone (Solu-Medrol) 40 mg IV DAILY [facility] Last Admin: 09/09/17 12:41 Dose: 40 mg Metoprolol Succinate (Toprol Xl) 25 mg PO DAILY [facility] Last Admin: 09/09/17 09:09 Dose: 25 mg Multivitamins/Minerals (Therapeutic-M Tab) 1 tab PO DAILY [facility] Last Admin: 09/09/17 09:09 Dose: 1 tab Nicotine (Nicoderm Cq) 1 patch TD DAILY [facility] Last Admin: 09/09/17 09:10 Dose: 1 patch Nystatin (Nystatin Oral Susp) 5 ml PO QID [facility] Last Admin: 09/09/17 21:01 Dose: 5 ml Pantoprazole Sodium (Protonix Ec Tab) 40 mg PO DAILY [facility] Last Admin: 09/09/17 09:09 Dose: 40 mg Fluticasone/Salmeterol (Advair Diskus 250/50) 1 puff IH Q12 [facility] Last Admin: 09/09/17 21:03 Dose: 1 puff Sodium Bicarbonate (Sodium Bicarbonate Tab) 650 mg PO Q12 [facility] Last Admin: 09/09/17 21:01 Dose: 650 mg Zolpidem Tartrate (Ambien) 5 mg PO HS [facility] Last Admin: 09/09/17 23:59 Dose: 5 mg - Labs Labs: 09/10/17 05:15 - Constitutional Appears: Non-toxic, Chronically Ill - Eye Exam Eye Exam: EOMI, PERRL - ENT Exam ENT Exam: Mucous Membranes Moist - Respiratory Exam Respiratory Exam: Clear to Ausculation Bilateral, NORMAL BREATHING PATTERN - Cardiovascular Exam Cardiovascular Exam: REGULAR RHYTHM, +S1, +S2. absent: Gallop - GI/Abdominal Exam GI & Abdominal Exam: Soft. absent: Guarding, Tenderness, Rebound - Extremities Exam Extremities Exam: absent: Normal Inspection (Multiple big ecchymosis in upper and lower ext) - Neurological Exam Neurological Exam: Alert, Awake, Oriented x3 - Psychiatric Exam Psychiatric exam: Normal Affect, Normal Mood - Skin Skin Exam: Warm. absent: Normal Color (Ecchymosis) Assessment and Plan - Assessment and Plan (Free Text) Assessment: Acute anemia S/P 1 unit of PRBC Hgb 9.[address] abd and pelvic to check for poss hematomas FOBT neg Retic count 5 Iron studies unremarkable C/W Feosol BID Hem-onc consult appreciated GI consult appreciated S/O AWMI Stable No CP Cardio consult appreciated C/W Current plan COPD Stable improved Pulm consult appreciated C/W Current plan <Porfirio Munson K - Last Filed: 09/13/17 10:57> Objective - Vital Signs/Intake and Output Vital Signs (last 24 hours): Temp Pulse Resp BP Pulse Ox 97.9 F 78 20 133/60 99 09/13/17 08:25 09/13/17 09:34 09/13/17 08:25 09/13/17 09:34 09/13/17 08:25 - Medications Medications: Current Medications Albuterol/Ipratropium (Duoneb 3 Mg/0.5 Mg (3 Ml) Ud) 3 ml INH RQ4 [facility] Last Admin: 09/13/17 07:28 Dose: Not Given Aspirin (Ecotrin) 81 mg PO DAILY [facility] Last Admin: 09/13/17 09:33 Dose: 81 mg Atorvastatin Calcium (Lipitor) 20 mg PO DAILY@2100 [facility] Last Admin: 09/12/17 22:04 Dose: 20 mg Calcium/Vitamin D (Oyster Shell Calcium/Vitamin D 500 Mg-200 Iu) 1 tab PO DAILY [facility] Last Admin: 09/13/17 09:33 Dose: 1 tab Clopidogrel Bisulfate (Plavix) 75 mg PO DAILY [facility] Last Admin: 09/13/17 09:33 Dose: 75 mg Cyanocobalamin (Vitamin B12 1000 Mcg/Ml Inj) 1,000 mcg IM Q2W [facility] Ergocalciferol (Drisdol 50,000 Intl Units Cap) 1 cap PO MO [facility] Ferrous Sulfate (Feosol) 325 mg PO BID [facility] Last Admin: 09/13/17 09:33 Dose: 325 mg Fluticasone Propionate (Flonase) 2 spr PRATIBHA HS PRN PRN Reason: Allergy symptoms Last Admin: 09/11/17 16:39 Dose: 2 spr Hydromorphone HCl (Dilaudid) 1 mg PO Q8 PRN PRN Reason: for pain 8-10 Last Admin: 09/13/17 00:04 Dose: 1 mg Azithromycin 500 mg/ Sodium (Chloride) 250 mls @ 250 mls/hr IVPB DAILY@1700 [facility] PRN Reason: Protocol Last Admin: 09/12/17 17:18 Dose: 250 mls/hr Losartan Potassium (Cozaar) 12.5 mg PO DAILY [facility] Last Admin: 09/13/17 09:34 Dose: 12.5 mg Metoprolol Succinate (Toprol Xl) 25 mg PO DAILY [facility] Last Admin: 09/13/17 09:34 Dose: 25 mg Multivitamins/Minerals (Therapeutic-M Tab) 1 tab PO DAILY [facility] Last Admin: 09/13/17 09:33 Dose: 1 tab Nicotine (Nicoderm Cq) 1 patch TD DAILY [facility] Last Admin: 09/13/17 09:34 Dose: 1 patch Nystatin (Nystatin Oral Susp) 5 ml PO QID [facility] Last Admin: 09/13/17 09:34 Dose: 5 ml Octreotide Acetate (Sandostatin) 100 mcg SC Q12 [facility] Last Admin: 09/13/17 09:32 Dose: 100 mcg Pantoprazole Sodium (Protonix Ec Tab) 40 mg PO DAILY [facility] Last Admin: 09/13/17 09:32 Dose: 40 mg Prednisone (Prednisone Tab) 10 mg PO DAILY [facility] Fluticasone/Salmeterol (Advair Diskus 250/50) 1 puff IH Q12 [facility] Last Admin: 09/13/17 09:31 Dose: 1 puff Sodium Bicarbonate (Sodium Bicarbonate Tab) 650 mg PO Q12 [facility] Last Admin: 09/13/17 09:32 Dose: 650 mg Zolpidem Tartrate (Ambien) 5 mg PO HS [facility] Last Admin: 09/13/17 00:40 Dose: 5 mg - Labs Labs: 09/12/17 06:50 Assessment and Plan - Assessment and Plan (Free Text) Assessment: Patient was personally seen and examined by me in rounds with residents. Available labs and diagnostic data reviewed. Case, patient's conditions and management plan discussed with residents in rounds. Agree with resident's progress note. Plan: As ordered.
--- NOTE | 2017-09-10 07:43 | CP.PCM.PN ---
<GalindomariaGerman - Last Filed: 09/10/17 08:13> Subjective - Date & Time of Evaluation Date of Evaluation: 09/10/17 Time of Evaluation: 07:42 - Subjective Subjective: PGY5 GI Fellow Progress Note Patient seen and examined bedside this morning. The patient states she feels a heaviness in the right leg upon ambulating yesterday. Also admitting to sore throat and concern for thrush with use of inhalers. Denies any dysphagia, odynophagia, nausea, vomiting, fever, chills. 12 system ROS performed and negative except where stated. Objective - Vital Signs/Intake and Output Vital Signs (last 24 hours): Temp Pulse Resp BP Pulse Ox 97.2 F L 87 20 160/78 H 99 09/09/17 20:32 09/09/17 20:32 09/09/17 20:32 09/09/17 20:32 09/09/17 20:32 - Medications Medications: Current Medications Albuterol/Ipratropium (Duoneb 3 Mg/0.5 Mg (3 Ml) Ud) 3 ml INH RQ4 [facility] Last Admin: 09/10/17 05:00 Dose: 3 ml Alprazolam (Xanax) 0.5 mg PO Q8@0600,1400,2200 [facility] Last Admin: 09/10/17 05:19 Dose: 0.5 mg Aspirin (Ecotrin) 81 mg PO DAILY [facility] Last Admin: 09/09/17 09:08 Dose: 81 mg Atorvastatin Calcium (Lipitor) 20 mg PO DAILY [facility] Last Admin: 09/09/17 09:10 Dose: 20 mg Calcium/Vitamin D (Oyster Shell Calcium/Vitamin D 500 Mg-200 Iu) 1 tab PO DAILY [facility] Last Admin: 09/09/17 09:09 Dose: 1 tab Clopidogrel Bisulfate (Plavix) 75 mg PO DAILY [facility] Last Admin: 09/09/17 09:11 Dose: 75 mg Cyanocobalamin (Vitamin B12 1000 Mcg/Ml Inj) 1,000 mcg IM Q2W [facility] Ergocalciferol (Drisdol 50,000 Intl Units Cap) 1 cap PO MO [facility] Ferrous Sulfate (Feosol) 325 mg PO BID [facility] Last Admin: 09/09/17 17:14 Dose: 325 mg Fluticasone Propionate (Flonase) 2 spr PRATIBHA HS PRN PRN Reason: Allergy symptoms Hydromorphone HCl (Dilaudid) 1 mg PO Q12 PRN PRN Reason: for pain 8-10 Last Admin: 09/10/17 00:27 Dose: 1 mg Azithromycin 500 mg/ Sodium (Chloride) 250 mls @ 250 mls/hr IVPB DAILY [facility] PRN Reason: Protocol Last Admin: 09/09/17 21:49 Dose: 250 mls/hr Ceftriaxone Sodium 1 gm/ (Dextrose) 100 mls @ 100 mls/hr IVPB DAILY@1700 [facility] PRN Reason: Protocol Last Admin: 09/09/17 20:47 Dose: 100 mls/hr Losartan Potassium (Cozaar) 12.5 mg PO DAILY [facility] Last Admin: 09/09/17 09:08 Dose: 12.5 mg Methylprednisolone (Solu-Medrol) 40 mg IV DAILY [facility] Last Admin: 09/09/17 12:41 Dose: 40 mg Metoprolol Succinate (Toprol Xl) 25 mg PO DAILY [facility] Last Admin: 09/09/17 09:09 Dose: 25 mg Multivitamins/Minerals (Therapeutic-M Tab) 1 tab PO DAILY [facility] Last Admin: 09/09/17 09:09 Dose: 1 tab Nicotine (Nicoderm Cq) 1 patch TD DAILY [facility] Last Admin: 09/09/17 09:10 Dose: 1 patch Nystatin (Nystatin Oral Susp) 5 ml PO QID [facility] Last Admin: 09/09/17 21:01 Dose: 5 ml Pantoprazole Sodium (Protonix Ec Tab) 40 mg PO DAILY [facility] Last Admin: 09/09/17 09:09 Dose: 40 mg Fluticasone/Salmeterol (Advair Diskus 250/50) 1 puff IH Q12 [facility] Last Admin: 09/09/17 21:03 Dose: 1 puff Sodium Bicarbonate (Sodium Bicarbonate Tab) 650 mg PO Q12 [facility] Last Admin: 09/09/17 21:01 Dose: 650 mg Zolpidem Tartrate (Ambien) 5 mg PO HS [facility] Last Admin: 09/09/17 23:59 Dose: 5 mg - Labs Labs: 09/10/17 05:15 - Constitutional Appears: Non-toxic, No Acute Distress - Eye Exam Eye Exam: EOMI, PERRL - ENT Exam ENT Exam: Mucous Membranes Moist - Respiratory Exam Respiratory Exam: Decreased Breath Sounds. absent: Rales, Rhonchi, Wheezes - Cardiovascular Exam Cardiovascular Exam: RRR, +S1, +S2 - GI/Abdominal Exam GI & Abdominal Exam: Soft, Normal Bowel Sounds. absent: Distended, Firm, Guarding, Rigid, Tenderness, Organomegaly Additional comments: iliostomy patent, green stool in bag - Extremities Exam Extremities Exam: Normal Inspection. absent: Pedal Edema - Neurological Exam Neurological Exam: Alert, Awake, Oriented x3 - Psychiatric Exam Psychiatric exam: Normal Affect, Normal Mood - Skin Skin Exam: Dry, Warm Assessment and Plan - Assessment and Plan (Free Text) Assessment: Patient is a 67yo female with PMHx significant for COPD, HTN, recent STEMI (09/03) s/p auto-lysis of an LAD lesion on cardiac catheterization, CAD with wall motion abnormality and systolic CHF with EF~30% who presented initially with chest pain and SOB and has now been moved to TCU -Acute blood loss anemia following PCI, on dual antiplatelet therapy -Significant ecchymosis on RUE and RLE -Multi-vessel CAD with recent STEMI -Systolic CHF with EF 30% on recent catheterization -COPD -HTN Plan: -Still without overt GI blood loss -Patient s/p 1 unit PRBC yesterday, to get another unit today per nursing -CT with and without IV contrast ordered to evaluate abd/pelvis and cardiac cath site - r/o worsening hematoma or ongoing hemorrhage; patient does not need to be NPO for CT abd/pelvis -Protonix 40mg PO QAMAC -Patient was on octreotide 100mcg SC BID since January of 2017 for high output to ostomy - will resume therapy -Iron studies WNL, Retic count elevated, Haptoglobin pending -Hematology consult appreciate -Started on Nytatin swish and swallow, monitor for improvement -No indication for urgent endoscopic interventions at this time; will benefit as outpatient when patient can safely be off DAP therapy -Ambulation as tolerated -Miralax to prevent constipation PRN <Dwaine Hirsch - Last Filed: 09/10/17 14:27> Objective - Vital Signs/Intake and Output Vital Signs (last 24 hours): Temp Pulse Resp BP Pulse Ox 97.2 F L 89 20 130/64 95 09/10/17 08:32 09/10/17 09:31 09/10/17 08:32 09/10/17 09:31 09/10/17 08:32 - Medications Medications: Current Medications Albuterol/Ipratropium (Duoneb 3 Mg/0.5 Mg (3 Ml) Ud) 3 ml INH RQ4 [facility] Last Admin: 09/10/17 11:02 Dose: 3 ml Alprazolam (Xanax) 0.5 mg PO Q8@0600,1400,2200 [facility] Last Admin: 09/10/17 13:25 Dose: 0.5 mg Aspirin (Ecotrin) 81 mg PO DAILY [facility] Last Admin: 09/10/17 09:30 Dose: 81 mg Atorvastatin Calcium (Lipitor) 20 mg PO DAILY@2100 [facility] Calcium/Vitamin D (Oyster Shell Calcium/Vitamin D 500 Mg-200 Iu) 1 tab PO DAILY [facility] Last Admin: 09/10/17 09:30 Dose: 1 tab Clopidogrel Bisulfate (Plavix) 75 mg PO DAILY [facility] Last Admin: 09/10/17 09:30 Dose: 75 mg Cyanocobalamin (Vitamin B12 1000 Mcg/Ml Inj) 1,000 mcg IM Q2W [facility] Ergocalciferol (Drisdol 50,000 Intl Units Cap) 1 cap PO MO [facility] Ferrous Sulfate (Feosol) 325 mg PO BID [facility] Last Admin: 09/10/17 09:30 Dose: 325 mg Fluticasone Propionate (Flonase) 2 spr PRATIBHA HS PRN PRN Reason: Allergy symptoms Hydromorphone HCl (Dilaudid) 1 mg PO Q12 PRN PRN Reason: for pain 8-10 Last Admin: 09/10/17 00:27 Dose: 1 mg Azithromycin 500 mg/ Sodium (Chloride) 250 mls @ 250 mls/hr IVPB DAILY@2100 [facility] PRN Reason: Protocol Losartan Potassium (Cozaar) 12.5 mg PO DAILY [facility] Last Admin: 09/10/17 09:29 Dose: 12.5 mg Metoprolol Succinate (Toprol Xl) 25 mg PO DAILY [facility] Last Admin: 09/10/17 09:31 Dose: 25 mg Multivitamins/Minerals (Therapeutic-M Tab) 1 tab PO DAILY [facility] Last Admin: 09/10/17 09:30 Dose: 1 tab Nicotine (Nicoderm Cq) 1 patch TD DAILY [facility] Last Admin: 09/10/17 09:30 Dose: 1 patch Nystatin (Nystatin Oral Susp) 5 ml PO QID [facility] Last Admin: 09/10/17 12:20 Dose: 5 ml Octreotide Acetate (Sandostatin) 100 mcg SC Q12 [facility] Last Admin: 09/10/17 10:48 Dose: 100 mcg Pantoprazole Sodium (Protonix Ec Tab) 40 mg PO DAILY [facility] Last Admin: 09/10/17 09:30 Dose: 40 mg Prednisone (Prednisone Tab) 20 mg PO DAILY [facility] Last Admin: 09/10/17 11:56 Dose: 20 mg Fluticasone/Salmeterol (Advair Diskus 250/50) 1 puff IH Q12 [facility] Last Admin: 09/10/17 09:28 Dose: 1 puff Sodium Bicarbonate (Sodium Bicarbonate Tab) 650 mg PO Q12 [facility] Last Admin: 09/10/17 09:30 Dose: 650 mg Zolpidem Tartrate (Ambien) 5 mg PO HS [facility] Last Admin: 09/09/17 23:59 Dose: 5 mg - Labs Labs: 09/10/17 05:15 Attending/Attestation - Attestation I have personally seen and examined this patient.: Yes I have fully participated in the care of the patient.: Yes I have reviewed all pertinent clinical information, including history, physical exam and plan: Yes Notes (Text): 09/10/17 14:26 67 year old female with h/o CAD, COPD admitted to rehab after NSTEMI, also with anemia in the setting of recent anticoagulation and dual antiplatelet therapy, with cath and hematoma. Supportive measures. Agree with transfusion. No GI bleeding. Green stool. Restart octreotide for ileostomy output reduction. COntinue PPi.
[2017-09-10] MEDS: Azithromycin 500 MG in Sodium Chloride 0.9% 250 ML IVPB SCH ×2 (08:31→21:22)
[2017-09-10] MEDS: Fluticasone-Salmeterol 250-50mcg Diskus IH SCH ×2 (09:28→21:10)
[2017-09-10] MEDS: MethylPREDNISolone 40 mg Vial IV SCH (09:29)
[2017-09-10] MEDS: Calcium-Vit D 500 mg-200 Units Tab UD PO SCH (09:30)
[2017-09-10] MEDS: Pantoprazole 40 mg EC Tab PO SCH (09:30)
[2017-09-10] MEDS: Nystatin 100,000 Units/ml Oral Susp 5 ml UD PO SCH ×4 (09:30→21:11)
[2017-09-10] MEDS: Multivitamin With Minerals Tab PO SCH (09:30)
[2017-09-10] MEDS: Metoprolol Succinate 25 mg XL Tab PO SCH (09:31)
--- NOTE | 2017-09-10 09:31 | CP.PCM.PN ---
Subjective - Date & Time of Evaluation Date of Evaluation: 09/10/17 Time of Evaluation: 09:35 - Subjective Subjective: FEELS BETTER SOB IMPROVED Objective - Vital Signs/Intake and Output Vital Signs (last 24 hours): Temp Pulse Resp BP Pulse Ox 97.2 F L 89 20 130/64 95 09/10/17 08:32 09/10/17 08:32 09/10/17 08:32 09/10/17 08:32 09/10/17 08:32 - Medications Medications: Current Medications Albuterol/Ipratropium (Duoneb 3 Mg/0.5 Mg (3 Ml) Ud) 3 ml INH RQ4 [facility] Last Admin: 09/10/17 08:18 Dose: Not Given Alprazolam (Xanax) 0.5 mg PO Q8@0600,1400,2200 [facility] Last Admin: 09/10/17 05:19 Dose: 0.5 mg Aspirin (Ecotrin) 81 mg PO DAILY [facility] Last Admin: 09/09/17 09:08 Dose: 81 mg Atorvastatin Calcium (Lipitor) 20 mg PO DAILY@2100 [facility] Calcium/Vitamin D (Oyster Shell Calcium/Vitamin D 500 Mg-200 Iu) 1 tab PO DAILY [facility] Last Admin: 09/09/17 09:09 Dose: 1 tab Clopidogrel Bisulfate (Plavix) 75 mg PO DAILY [facility] Last Admin: 09/09/17 09:11 Dose: 75 mg Cyanocobalamin (Vitamin B12 1000 Mcg/Ml Inj) 1,000 mcg IM Q2W [facility] Ergocalciferol (Drisdol 50,000 Intl Units Cap) 1 cap PO MO [facility] Ferrous Sulfate (Feosol) 325 mg PO BID [facility] Last Admin: 09/09/17 17:14 Dose: 325 mg Fluticasone Propionate (Flonase) 2 spr PRATIBHA HS PRN PRN Reason: Allergy symptoms Hydromorphone HCl (Dilaudid) 1 mg PO Q12 PRN PRN Reason: for pain 8-10 Last Admin: 09/10/17 00:27 Dose: 1 mg Ceftriaxone Sodium 1 gm/ (Dextrose) 100 mls @ 100 mls/hr IVPB DAILY@1700 [facility] PRN Reason: Protocol Last Admin: 09/09/17 20:47 Dose: 100 mls/hr Azithromycin 500 mg/ Sodium (Chloride) 250 mls @ 250 mls/hr IVPB DAILY@2100 [facility] PRN Reason: Protocol Losartan Potassium (Cozaar) 12.5 mg PO DAILY [facility] Last Admin: 09/09/17 09:08 Dose: 12.5 mg Methylprednisolone (Solu-Medrol) 40 mg IV DAILY [facility] Last Admin: 09/09/17 12:41 Dose: 40 mg Metoprolol Succinate (Toprol Xl) 25 mg PO DAILY [facility] Last Admin: 09/09/17 09:09 Dose: 25 mg Multivitamins/Minerals (Therapeutic-M Tab) 1 tab PO DAILY [facility] Last Admin: 09/09/17 09:09 Dose: 1 tab Nicotine (Nicoderm Cq) 1 patch TD DAILY [facility] Last Admin: 09/09/17 09:10 Dose: 1 patch Nystatin (Nystatin Oral Susp) 5 ml PO QID [facility] Last Admin: 09/09/17 21:01 Dose: 5 ml Octreotide Acetate (Sandostatin) 100 mcg SC Q12 [facility] Pantoprazole Sodium (Protonix Ec Tab) 40 mg PO DAILY [facility] Last Admin: 09/09/17 09:09 Dose: 40 mg Fluticasone/Salmeterol (Advair Diskus 250/50) 1 puff IH Q12 [facility] Last Admin: 09/09/17 21:03 Dose: 1 puff Sodium Bicarbonate (Sodium Bicarbonate Tab) 650 mg PO Q12 [facility] Last Admin: 09/09/17 21:01 Dose: 650 mg Zolpidem Tartrate (Ambien) 5 mg PO HS [facility] Last Admin: 09/09/17 23:59 Dose: 5 mg - Labs Labs: 09/10/17 05:15 - Constitutional Appears: No Acute Distress - Head Exam Head Exam: ATRAUMATIC, NORMAL INSPECTION, NORMOCEPHALIC - Eye Exam Eye Exam: EOMI, Normal appearance, PERRL Pupil Exam: NORMAL ACCOMODATION, PERRL - ENT Exam ENT Exam: Mucous Membranes Moist, Normal Exam - Neck Exam Neck Exam: Full ROM, Normal Inspection. absent: Lymphadenopathy - Respiratory Exam Respiratory Exam: Decreased Breath Sounds, Prolonged Expiratory Phase, NORMAL BREATHING PATTERN - Cardiovascular Exam Cardiovascular Exam: REGULAR RHYTHM, +S1, +S2. absent: Murmur - GI/Abdominal Exam GI & Abdominal Exam: Soft, Normal Bowel Sounds. absent: Tenderness - Rectal Exam Rectal Exam: NORMAL INSPECTION - Extremities Exam Extremities Exam: Full ROM, Normal Capillary Refill, Normal Inspection. absent : Joint Swelling, Pedal Edema - Back Exam Back Exam: NORMAL INSPECTION - Neurological Exam Neurological Exam: Alert, Awake, CN II-XII Intact, Normal Gait, Oriented x3 - Psychiatric Exam Psychiatric exam: Normal Affect, Normal Mood - Skin Skin Exam: Dry, Intact, Normal Color, Warm Assessment and Plan - Assessment and Plan (Free Text) Assessment: COPD EXAC S/P [place] URI ANEMIA Plan: CONTINUE CURRENT RX D/C SOLUMEDROL AND BEGIN PO PREDNISONE D/C ROCEPHIN AND MAINTAIN ZITHROMAX
[2017-09-10 14:42] VITALS: BMI 22.6
--- NOTE | 2017-09-10 16:16 | CT ---
PROCEDURE: CT Abdomen and Pelvis with and without intravenous contrast HISTORY: R/O HEMATOMA. RECENT CARDIAC CATH COMPARISON: Unenhanced abdomen pelvis CT examination 05/28/2010. TECHNIQUE: Axial images of the abdomen were obtained in the pre contrast, portal venous and delayed phases of enhancement. Coronal and sagittal reformats were generated. Contrast dose: Omnipaque 300, 85 cc Radiation dose: Total exam DLP = 749.38 mGy-cm. This CT exam was performed using one or more of the following dose reduction techniques: Automated exposure control, adjustment of the mA and/or kV according to patient size, and/or use of iterative reconstruction technique. FINDINGS: LOWER THORAX: Dense infiltrate left lower lobe with limited left pleural effusion in question. Small hiatal hernia identified. No right-sided infiltrate or pleural effusion. LIVER: Unremarkable. No gross lesion or ductal dilatation. GALLBLADDER AND BILE DUCTS: Prior cholecystectomy again evident. PANCREAS: Unremarkable. No gross lesion or ductal dilatation. SPLEEN: Unremarkable. ADRENALS: Unremarkable. No mass. KIDNEYS AND URETERS: Unremarkable. No hydronephrosis. No solid mass. VASCULATURE: Unremarkable. No aortic aneurysm. BOWEL: Stomach is collapsed. There is no bowel obstruction appreciated. Patient status post subtotal if not total colectomy in the right lower quadrant ostomy present. APPENDIX: Not identified. No right lower quadrant inflammatory change appreciable. PERITONEUM: Unremarkable. No free fluid. No free air. LYMPH NODES: Unremarkable. No enlarged lymph nodes. BLADDER: Unremarkable. REPRODUCTIVE: Prior hysterectomy again evident. BONES: No acute fracture. OTHER FINDINGS: A 4.2 x 2.7 x 2.3 cm (superoinferior by transverse by anteroposterior dimensions) pain in toes appreciated in the deep subcutaneous fat superficial to the anterior compartments which are of the proximal right thigh approximate 2-3 cm inferior to the right femoral head. IMPRESSION: 4.2 cm hematoma is appreciated in the deep subcutaneous fat overlying the musculature of proximal right thigh at 2-3 cm inferior to the level of the right femoral head. If a larger hematoma is palpated here than consider ultrasound of the affected territory including color Doppler technique. Other lesser, nonacute findings as discussed above.
[2017-09-11] MEDS: Albuterol-Ipratrop 3 mg / 0.5 (3 ml) UD INH SCH ×6 (04:17→23:38)
[2017-09-11 06:15] LABS: HEMOGLOBIN 11.5 g/dL (12.0-16.0); MEAN CELL VOLUME 94.4 fl (81.0-99.0); MEAN CORPUSCULAR HEMOGLOBIN 31.7 pg (27.0-31.0); MEAN CORPUSCULAR HGB CONC 33.5 g/dL (33.0-37.0); RBC 3.63 Mil/uL (3.80-5.20); RED CELL DISTRIBUTION WIDTH 15.2 % (11.5-14.5); WHITE BLOOD COUNT 23.1 K/uL (4.8-10.8)
--- NOTE | 2017-09-11 07:48 | CP.PCM.PN ---
<Anthony Rene - Last Filed: 09/11/17 08:25> Subjective - Date & Time of Evaluation Date of Evaluation: 09/11/17 Time of Evaluation: 07:20 - Subjective Subjective: Evaluated at bedside with Dr Munson during rounds Feels much better, stable, is eager to c/w PT. Denies CP, SOB, palpitations, nausea, vomiting, melena, hematochezia. S/P 2 units of PRBC Objective - Vital Signs/Intake and Output Vital Signs (last 24 hours): Temp Pulse Resp BP Pulse Ox 97.5 F L 86 20 117/60 98 09/10/17 21:50 09/10/17 21:50 09/10/17 21:50 09/10/17 21:50 09/10/17 21:50 - Medications Medications: Current Medications Albuterol/Ipratropium (Duoneb 3 Mg/0.5 Mg (3 Ml) Ud) 3 ml INH RQ4 [facility] Last Admin: 09/11/17 04:17 Dose: 3 ml Alprazolam (Xanax) 0.5 mg PO Q8@0600,1400,2200 [facility] Last Admin: 09/11/17 05:46 Dose: 0.5 mg Aspirin (Ecotrin) 81 mg PO DAILY [facility] Last Admin: 09/10/17 09:30 Dose: 81 mg Atorvastatin Calcium (Lipitor) 20 mg PO DAILY@2100 [facility] Last Admin: 09/10/17 21:10 Dose: 20 mg Calcium/Vitamin D (Oyster Shell Calcium/Vitamin D 500 Mg-200 Iu) 1 tab PO DAILY [facility] Last Admin: 09/10/17 09:30 Dose: 1 tab Clopidogrel Bisulfate (Plavix) 75 mg PO DAILY [facility] Last Admin: 09/10/17 09:30 Dose: 75 mg Cyanocobalamin (Vitamin B12 1000 Mcg/Ml Inj) 1,000 mcg IM Q2W [facility] Ergocalciferol (Drisdol 50,000 Intl Units Cap) 1 cap PO MO [facility] Ferrous Sulfate (Feosol) 325 mg PO BID [facility] Last Admin: 09/10/17 17:15 Dose: 325 mg Fluticasone Propionate (Flonase) 2 spr PRATIBHA HS PRN PRN Reason: Allergy symptoms Hydromorphone HCl (Dilaudid) 1 mg PO Q8 PRN PRN Reason: for pain 8-10 Last Admin: 09/11/17 01:00 Dose: 1 mg Azithromycin 500 mg/ Sodium (Chloride) 250 mls @ 250 mls/hr IVPB DAILY@2100 [facility] PRN Reason: Protocol Last Admin: 09/10/17 21:22 Dose: 250 mls/hr Losartan Potassium (Cozaar) 12.5 mg PO DAILY [facility] Last Admin: 09/10/17 09:29 Dose: 12.5 mg Metoprolol Succinate (Toprol Xl) 25 mg PO DAILY [facility] Last Admin: 09/10/17 09:31 Dose: 25 mg Multivitamins/Minerals (Therapeutic-M Tab) 1 tab PO DAILY [facility] Last Admin: 09/10/17 09:30 Dose: 1 tab Nicotine (Nicoderm Cq) 1 patch TD DAILY [facility] Last Admin: 09/10/17 09:30 Dose: 1 patch Nystatin (Nystatin Oral Susp) 5 ml PO QID [facility] Last Admin: 09/10/17 21:11 Dose: 5 ml Octreotide Acetate (Sandostatin) 100 mcg SC Q12 [facility] Last Admin: 09/10/17 21:11 Dose: 100 mcg Pantoprazole Sodium (Protonix Ec Tab) 40 mg PO DAILY [facility] Last Admin: 09/10/17 09:30 Dose: 40 mg Prednisone (Prednisone Tab) 20 mg PO DAILY [facility] Last Admin: 09/10/17 11:56 Dose: 20 mg Fluticasone/Salmeterol (Advair Diskus 250/50) 1 puff IH Q12 [facility] Last Admin: 09/10/17 21:10 Dose: 1 puff Sodium Bicarbonate (Sodium Bicarbonate Tab) 650 mg PO Q12 [facility] Last Admin: 09/10/17 21:10 Dose: 650 mg Zolpidem Tartrate (Ambien) 5 mg PO HS [facility] Last Admin: 09/10/17 23:09 Dose: 5 mg - Labs Labs: 09/11/17 05:45 - Constitutional Appears: Non-toxic, No Acute Distress, Chronically Ill - Eye Exam Eye Exam: PERRL - ENT Exam ENT Exam: Mucous Membranes Moist - Respiratory Exam Respiratory Exam: NORMAL BREATHING PATTERN. absent: Decreased Breath Sounds, Prolonged Expiratory Phase, Respiratory Distress - Cardiovascular Exam Cardiovascular Exam: REGULAR RHYTHM, +S1, +S2. absent: Gallop - GI/Abdominal Exam GI & Abdominal Exam: Soft, Normal Bowel Sounds. absent: Tenderness - Neurological Exam Neurological Exam: Alert, Awake, Oriented x3 - Psychiatric Exam Psychiatric exam: Normal Affect, Normal Mood - Skin Skin Exam: Warm. absent: Normal Color (Multiple ecchymosis in different stages of evolution mainly in right arm and leg) Assessment and Plan - Assessment and Plan (Free Text) Assessment: Acute anemia improved s/p 2 units of PRBC Hgb today =11s Feeling much better Hem-onc consult appreciated GI consult appreciated: FOBT+ s/p AWMI Stable C/W Dual antiplatelet therapy R/thigh hematoma Sx consult Likely secondary to procedure + anticoagulation Stable <Munson,Porfirio K - Last Filed: 09/13/17 11:01> Objective - Vital Signs/Intake and Output Vital Signs (last 24 hours): Temp Pulse Resp BP Pulse Ox 97.9 F 78 20 133/60 99 09/13/17 08:25 09/13/17 09:34 09/13/17 08:25 09/13/17 09:34 09/13/17 08:25 - Medications Medications: Current Medications Albuterol/Ipratropium (Duoneb 3 Mg/0.5 Mg (3 Ml) Ud) 3 ml INH RQ4 [facility] Last Admin: 09/13/17 07:28 Dose: Not Given Aspirin (Ecotrin) 81 mg PO DAILY [facility] Last Admin: 09/13/17 09:33 Dose: 81 mg Atorvastatin Calcium (Lipitor) 20 mg PO DAILY@2100 [facility] Last Admin: 09/12/17 22:04 Dose: 20 mg Calcium/Vitamin D (Oyster Shell Calcium/Vitamin D 500 Mg-200 Iu) 1 tab PO DAILY [facility] Last Admin: 09/13/17 09:33 Dose: 1 tab Clopidogrel Bisulfate (Plavix) 75 mg PO DAILY [facility] Last Admin: 09/13/17 09:33 Dose: 75 mg Cyanocobalamin (Vitamin B12 1000 Mcg/Ml Inj) 1,000 mcg IM Q2W [facility] Ergocalciferol (Drisdol 50,000 Intl Units Cap) 1 cap PO MO [facility] Ferrous Sulfate (Feosol) 325 mg PO BID [facility] Last Admin: 09/13/17 09:33 Dose: 325 mg Fluticasone Propionate (Flonase) 2 spr PRATIBHA HS PRN PRN Reason: Allergy symptoms Last Admin: 09/11/17 16:39 Dose: 2 spr Hydromorphone HCl (Dilaudid) 1 mg PO Q8 PRN PRN Reason: for pain 8-10 Last Admin: 09/13/17 00:04 Dose: 1 mg Azithromycin 500 mg/ Sodium (Chloride) 250 mls @ 250 mls/hr IVPB DAILY@1700 [facility] PRN Reason: Protocol Last Admin: 09/12/17 17:18 Dose: 250 mls/hr Losartan Potassium (Cozaar) 12.5 mg PO DAILY [facility] Last Admin: 09/13/17 09:34 Dose: 12.5 mg Metoprolol Succinate (Toprol Xl) 25 mg PO DAILY [facility] Last Admin: 09/13/17 09:34 Dose: 25 mg Multivitamins/Minerals (Therapeutic-M Tab) 1 tab PO DAILY [facility] Last Admin: 09/13/17 09:33 Dose: 1 tab Nicotine (Nicoderm Cq) 1 patch TD DAILY [facility] Last Admin: 09/13/17 09:34 Dose: 1 patch Nystatin (Nystatin Oral Susp) 5 ml PO QID [facility] Last Admin: 09/13/17 09:34 Dose: 5 ml Octreotide Acetate (Sandostatin) 100 mcg SC Q12 [facility] Last Admin: 09/13/17 09:32 Dose: 100 mcg Pantoprazole Sodium (Protonix Ec Tab) 40 mg PO DAILY [facility] Last Admin: 09/13/17 09:32 Dose: 40 mg Prednisone (Prednisone Tab) 10 mg PO DAILY [facility] Fluticasone/Salmeterol (Advair Diskus 250/50) 1 puff IH Q12 [facility] Last Admin: 09/13/17 09:31 Dose: 1 puff Sodium Bicarbonate (Sodium Bicarbonate Tab) 650 mg PO Q12 [facility] Last Admin: 09/13/17 09:32 Dose: 650 mg Zolpidem Tartrate (Ambien) 5 mg PO HS [facility] Last Admin: 09/13/17 00:40 Dose: 5 mg - Labs Labs: 09/12/17 06:50 Assessment and Plan - Assessment and Plan (Free Text) Assessment: Patient was personally seen and examined by me in rounds with residents. Available labs and diagnostic data reviewed. Case, patient's conditions and management plan discussed with residents in rounds. Agree with resident's progress note. Plan: As ordered.
--- NOTE | 2017-09-11 08:18 | CP.PCM.CON ---
<Zach Greer - Last Filed: 09/11/17 10:35> History of Present Illness - History of Present Illness History of Present Illness: Surgery Consult Note: Dr. Dunbar 67 year old female patient with PMHx of COPD, HTN, ileostomy, EGD 2013, gastritis, esophageal stricture, hiatial hernia, and a recent IL was seen and evaluated at bedside for hematoma on the right thigh. Patient reports that she has been taking a lot of medications since the IL and she started developing ecchymosis all over her body due to blood pressure cuffs and lead placements. Reports that she just recently had a cardiac cath done. Patient denies of any other complains at this time. Denies of having any recent F/N/V/C/SOB/headache. PMHx: COPD, HTN, EGD 2013: gastritis, esophageal stricture, hiatial hernia, ileostomy, and a recent IL PSHx: Cardiac cath, Hysterectomy, Cholecystectomy, ileostomy Allergies: Sulfa drugs SocialHx: onger term smoker > 30 years, at least 1PPD, social drinker, denies any illicit drugs Review of Systems - Constitutional Constitutional: As Per HPI - Integumentary Integumentary: Unusual Bruising Past Patient History - Past Medical History & Family History Past Medical History?: Yes - Past Social History Smoking Status: Light Smoker < 10 Cigarettes Daily - CARDIAC Hx Cardiac Disorders: Yes Hx Hypertension: Yes Other/Comment: S/P cardiac cath - PULMONARY Hx Respiratory Disorders: Yes Hx Chronic Obstructive Pulmonary Disease (COPD): Yes Hx Emphysema: Yes - NEUROLOGICAL Hx Neurological Disorder: Yes Other/Comment: FIBROMYALGIA - HEENT Hx HEENT Problems: No - RENAL Hx Chronic Kidney Disease: No - ENDOCRINE/METABOLIC Hx Endocrine Disorders: No - HEMATOLOGICAL/ONCOLOGICAL Hx AIDS: No Hx Human Immunodeficiency Virus (HIV): No - INTEGUMENTARY Hx Dermatological Problems: No - MUSCULOSKELETAL/RHEUMATOLOGICAL Hx Falls: No - GASTROINTESTINAL Hx Gastrointestinal Disorders: Yes Hx Ileostomy: Yes - GENITOURINARY/GYNECOLOGICAL Hx Genitourinary Disorders: No - PSYCHIATRIC Hx Substance Use: No - SURGICAL HISTORY Hx Surgeries: Yes Hx Cholecystectomy: Yes Hx Herniorrhaphy: Yes Hx Hysterectomy: Yes - ANESTHESIA Hx Anesthesia: Yes Hx Anesthesia Reactions: No Hx Malignant Hyperthermia: No Meds Allergies/Adverse Reactions: Allergies Allergy/AdvReac Type Severity Reaction Status Date / Time Sulfa (Sulfonamide Allergy crystallized Verified 09/08/17 23:14 Antibiotics) kidneys - Medications Medications: Current Medications Albuterol/Ipratropium (Duoneb 3 Mg/0.5 Mg (3 Ml) Ud) 3 ml INH RQ4 [facility] Last Admin: 09/11/17 04:17 Dose: 3 ml Alprazolam (Xanax) 0.5 mg PO Q8@0600,1400,2200 [facility] Last Admin: 09/11/17 05:46 Dose: 0.5 mg Aspirin (Ecotrin) 81 mg PO DAILY [facility] Last Admin: 09/10/17 09:30 Dose: 81 mg Atorvastatin Calcium (Lipitor) 20 mg PO DAILY@2100 [facility] Last Admin: 09/10/17 21:10 Dose: 20 mg Calcium/Vitamin D (Oyster Shell Calcium/Vitamin D 500 Mg-200 Iu) 1 tab PO DAILY [facility] Last Admin: 09/10/17 09:30 Dose: 1 tab Clopidogrel Bisulfate (Plavix) 75 mg PO DAILY [facility] Last Admin: 09/10/17 09:30 Dose: 75 mg Cyanocobalamin (Vitamin B12 1000 Mcg/Ml Inj) 1,000 mcg IM Q2W [facility] Ergocalciferol (Drisdol 50,000 Intl Units Cap) 1 cap PO MO [facility] Ferrous Sulfate (Feosol) 325 mg PO BID [facility] Last Admin: 09/10/17 17:15 Dose: 325 mg Fluticasone Propionate (Flonase) 2 spr PRATIBHA HS PRN PRN Reason: Allergy symptoms Hydromorphone HCl (Dilaudid) 1 mg PO Q8 PRN PRN Reason: for pain 8-10 Last Admin: 09/11/17 01:00 Dose: 1 mg Azithromycin 500 mg/ Sodium (Chloride) 250 mls @ 250 mls/hr IVPB DAILY@2100 [facility] PRN Reason: Protocol Last Admin: 09/10/17 21:22 Dose: 250 mls/hr Losartan Potassium (Cozaar) 12.5 mg PO DAILY [facility] Last Admin: 09/10/17 09:29 Dose: 12.5 mg Metoprolol Succinate (Toprol Xl) 25 mg PO DAILY [facility] Last Admin: 09/10/17 09:31 Dose: 25 mg Multivitamins/Minerals (Therapeutic-M Tab) 1 tab PO DAILY [facility] Last Admin: 09/10/17 09:30 Dose: 1 tab Nicotine (Nicoderm Cq) 1 patch TD DAILY [facility] Last Admin: 09/10/17 09:30 Dose: 1 patch Nystatin (Nystatin Oral Susp) 5 ml PO QID [facility] Last Admin: 09/10/17 21:11 Dose: 5 ml Octreotide Acetate (Sandostatin) 100 mcg SC Q12 [facility] Last Admin: 09/10/17 21:11 Dose: 100 mcg Pantoprazole Sodium (Protonix Ec Tab) 40 mg PO DAILY [facility] Last Admin: 09/10/17 09:30 Dose: 40 mg Prednisone (Prednisone Tab) 20 mg PO DAILY [facility] Last Admin: 09/10/17 11:56 Dose: 20 mg Fluticasone/Salmeterol (Advair Diskus 250/50) 1 puff IH Q12 [facility] Last Admin: 09/10/17 21:10 Dose: 1 puff Sodium Bicarbonate (Sodium Bicarbonate Tab) 650 mg PO Q12 [facility] Last Admin: 09/10/17 21:10 Dose: 650 mg Zolpidem Tartrate (Ambien) 5 mg PO HS [facility] Last Admin: 09/10/17 23:09 Dose: 5 mg Physical Exam - Constitutional Appears: Well, Non-toxic, No Acute Distress - Eye Exam Eye Exam: Normal appearance - Neck Exam Neck exam: Positive for: Normal Inspection - Respiratory Exam Respiratory Exam: NORMAL BREATHING PATTERN - GI/Abdominal Exam GI & Abdominal Exam: Soft. absent: Mass, Rigid, Tenderness - Rectal Exam Rectal Exam: Deferred - Extremities Exam Additional comments: Site of cardiac cath entry point on R thigh appears non-infected. Hematoma appears to have resolved on its own. no active bleeding Ecchymosis noted on bilateral lower and upper extremities Results - Vital Signs Recent Vital Signs: Last Vital Signs Temp 97.5 F L 09/10/17 21:50 Pulse 86 09/10/17 21:50 Resp 20 09/10/17 21:50 BP 117/60 09/10/17 21:50 Pulse Ox 98 09/10/17 21:50 - Labs Result Diagrams: 09/11/17 05:45 Labs: Laboratory Results - last 24 hr 09/09/17 09/10/17 09/11/17 12:25 17:50 05:45 WBC 23.1 H RBC 3.63 L Hgb 11.5 L Hct 34.3 MCV 94.4 MCH 31.7 H MCHC 33.5 RDW 15.2 H Plt Count 246 Stool Occult Blood Positive H Blood Type O POSITIVE Antibody Screen Negative Crossmatch See Detail BBK History Checked Patient has bt Assessment & Plan - Assessment and Plan (Free Text) Assessment: 67 year old female patient with significant PMHx with right thigh hematoma Plan: -Patient seen and evaluated -Compressive dressing, CATHLEEN bandage -No surgical intervention at this time -Thank you for the consult; Surgical team to signoff at this time, please re- consult if needed above discussed with Dr. Dunbar - Date & Time Date: 09/11/17 Time: 08:24 <Parker Dunbar - Last Filed: 09/12/17 13:16> History of Present Illness - History of Present Illness History of Present Illness: Patient was seen and examined at the bedside. Agree with resident's note above. Meds - Medications Medications: Current Medications Albuterol/Ipratropium (Duoneb 3 Mg/0.5 Mg (3 Ml) Ud) 3 ml INH RQ4 [facility] Last Admin: 09/12/17 11:58 Dose: 3 ml Alprazolam (Xanax) 0.5 mg PO Q8@0600,1400,2200 [facility] Last Admin: 09/12/17 06:05 Dose: 0.5 mg Aspirin (Ecotrin) 81 mg PO DAILY [facility] Last Admin: 09/12/17 09:42 Dose: 81 mg Atorvastatin Calcium (Lipitor) 20 mg PO DAILY@2100 [facility] Last Admin: 09/11/17 21:27 Dose: 20 mg Calcium/Vitamin D (Oyster Shell Calcium/Vitamin D 500 Mg-200 Iu) 1 tab PO DAILY [facility] Last Admin: 09/12/17 09:41 Dose: 1 tab Clopidogrel Bisulfate (Plavix) 75 mg PO DAILY [facility] Last Admin: 09/12/17 09:41 Dose: 75 mg Cyanocobalamin (Vitamin B12 1000 Mcg/Ml Inj) 1,000 mcg IM Q2W [facility] Ergocalciferol (Drisdol 50,000 Intl Units Cap) 1 cap PO MO [facility] Ferrous Sulfate (Feosol) 325 mg PO BID [facility] Last Admin: 09/12/17 09:40 Dose: 325 mg Fluticasone Propionate (Flonase) 2 spr PRATIBHA HS PRN PRN Reason: Allergy symptoms Last Admin: 09/11/17 16:39 Dose: 2 spr Hydromorphone HCl (Dilaudid) 1 mg PO Q8 PRN PRN Reason: for pain 8-10 Last Admin: 09/11/17 01:00 Dose: 1 mg Azithromycin 500 mg/ Sodium (Chloride) 250 mls @ 250 mls/hr IVPB DAILY@1700 [facility] PRN Reason: Protocol Losartan Potassium (Cozaar) 12.5 mg PO DAILY [facility] Last Admin: 09/12/17 09:42 Dose: 12.5 mg Metoprolol Succinate (Toprol Xl) 25 mg PO DAILY [facility] Last Admin: 09/12/17 09:41 Dose: 25 mg Multivitamins/Minerals (Therapeutic-M Tab) 1 tab PO DAILY [facility] Last Admin: 09/12/17 09:48 Dose: 1 tab Nicotine (Nicoderm Cq) 1 patch TD DAILY [facility] Last Admin: 09/12/17 09:40 Dose: 1 patch Nystatin (Nystatin Oral Susp) 5 ml PO QID [facility] Last Admin: 09/12/17 12:23 Dose: 5 ml Octreotide Acetate (Sandostatin) 100 mcg SC Q12 [facility] Last Admin: 09/12/17 09:55 Dose: 100 mcg Pantoprazole Sodium (Protonix Ec Tab) 40 mg PO DAILY [facility] Last Admin: 09/12/17 09:41 Dose: 40 mg Prednisone (Prednisone Tab) 20 mg PO DAILY [facility] Last Admin: 09/12/17 09:41 Dose: 20 mg Fluticasone/Salmeterol (Advair Diskus 250/50) 1 puff IH Q12 [facility] Last Admin: 09/12/17 09:39 Dose: 1 puff Sodium Bicarbonate (Sodium Bicarbonate Tab) 650 mg PO Q12 [facility] Last Admin: 09/12/17 09:41 Dose: 650 mg Zolpidem Tartrate (Ambien) 5 mg PO HS [facility] Last Admin: 09/11/17 21:30 Dose: 5 mg Results - Vital Signs Recent Vital Signs: Last Vital Signs Temp 97.7 F 09/12/17 08:39 Pulse 89 09/12/17 10:21 Resp 20 09/12/17 08:39 BP 139/62 09/12/17 09:42 Pulse Ox 94 L 09/12/17 10:21 - Labs Result Diagrams: 09/12/17 06:50 Labs: Laboratory Results - last 24 hr 09/12/17 06:50 WBC 17.4 H RBC 3.26 L Hgb 10.6 L Hct 30.6 L MCV 93.9 MCH 32.5 H MCHC 34.6 RDW 15.0 H Plt Count 207
[2017-09-11] MEDS: Fluticasone-Salmeterol 250-50mcg Diskus IH SCH ×2 (08:47→21:27)
[2017-09-11] MEDS: Nystatin 100,000 Units/ml Oral Susp 5 ml UD PO SCH ×4 (08:48→21:28)
[2017-09-11] MEDS: Pantoprazole 40 mg EC Tab PO SCH (08:49)
[2017-09-11] MEDS: Calcium-Vit D 500 mg-200 Units Tab UD PO SCH (08:49)
[2017-09-11] MEDS: Multivitamin With Minerals Tab PO SCH (08:50)
[2017-09-11] MEDS: Metoprolol Succinate 25 mg XL Tab PO SCH (08:50)
--- NOTE | 2017-09-11 10:37 | CP.PCM.PN ---
<ShelbyneetamariaGerman - Last Filed: 09/11/17 10:34> Subjective - Date & Time of Evaluation Date of Evaluation: 09/11/17 Time of Evaluation: 08:15 - Subjective Subjective: PGY5 GI Fellow Progress Note Patient seen and exmained bedside this morning. The patient states that she is feeling well and has no complaints. Some fatigue after working with PT in the gym on the TCU floor. 12 system ROS performed and negative except where stated. Objective - Vital Signs/Intake and Output Vital Signs (last 24 hours): Temp Pulse Resp BP Pulse Ox 97.5 F L 89 20 121/87 95 09/11/17 08:14 09/11/17 10:00 09/11/17 08:14 09/11/17 10:00 09/11/17 10:00 - Medications Medications: Current Medications Albuterol/Ipratropium (Duoneb 3 Mg/0.5 Mg (3 Ml) Ud) 3 ml INH RQ4 [facility] Last Admin: 09/11/17 08:54 Dose: 3 ml Alprazolam (Xanax) 0.5 mg PO Q8@0600,1400,2200 [facility] Last Admin: 09/11/17 05:46 Dose: 0.5 mg Aspirin (Ecotrin) 81 mg PO DAILY [facility] Last Admin: 09/11/17 08:49 Dose: 81 mg Atorvastatin Calcium (Lipitor) 20 mg PO DAILY@2100 [facility] Last Admin: 09/10/17 21:10 Dose: 20 mg Calcium/Vitamin D (Oyster Shell Calcium/Vitamin D 500 Mg-200 Iu) 1 tab PO DAILY [facility] Last Admin: 09/11/17 08:49 Dose: 1 tab Clopidogrel Bisulfate (Plavix) 75 mg PO DAILY [facility] Last Admin: 09/11/17 08:49 Dose: 75 mg Cyanocobalamin (Vitamin B12 1000 Mcg/Ml Inj) 1,000 mcg IM Q2W [facility] Ergocalciferol (Drisdol 50,000 Intl Units Cap) 1 cap PO MO [facility] Ferrous Sulfate (Feosol) 325 mg PO BID [facility] Last Admin: 09/11/17 08:49 Dose: 325 mg Fluticasone Propionate (Flonase) 2 spr PRATIBHA HS PRN PRN Reason: Allergy symptoms Hydromorphone HCl (Dilaudid) 1 mg PO Q8 PRN PRN Reason: for pain 8-10 Last Admin: 09/11/17 01:00 Dose: 1 mg Azithromycin 500 mg/ Sodium (Chloride) 250 mls @ 250 mls/hr IVPB DAILY@2100 [facility] PRN Reason: Protocol Last Admin: 09/10/17 21:22 Dose: 250 mls/hr Losartan Potassium (Cozaar) 12.5 mg PO DAILY [facility] Last Admin: 09/11/17 08:48 Dose: 12.5 mg Metoprolol Succinate (Toprol Xl) 25 mg PO DAILY [facility] Last Admin: 09/11/17 08:50 Dose: 25 mg Multivitamins/Minerals (Therapeutic-M Tab) 1 tab PO DAILY [facility] Last Admin: 09/11/17 08:50 Dose: 1 tab Nicotine (Nicoderm Cq) 1 patch TD DAILY [facility] Last Admin: 09/11/17 08:49 Dose: 1 patch Nystatin (Nystatin Oral Susp) 5 ml PO QID [facility] Last Admin: 09/11/17 08:48 Dose: 5 ml Octreotide Acetate (Sandostatin) 100 mcg SC Q12 [facility] Last Admin: 09/11/17 08:54 Dose: 100 mcg Pantoprazole Sodium (Protonix Ec Tab) 40 mg PO DAILY [facility] Last Admin: 09/11/17 08:49 Dose: 40 mg Prednisone (Prednisone Tab) 20 mg PO DAILY [facility] Last Admin: 09/11/17 08:49 Dose: 20 mg Fluticasone/Salmeterol (Advair Diskus 250/50) 1 puff IH Q12 [facility] Last Admin: 09/11/17 08:47 Dose: 1 puff Sodium Bicarbonate (Sodium Bicarbonate Tab) 650 mg PO Q12 [facility] Last Admin: 09/11/17 08:48 Dose: 650 mg Zolpidem Tartrate (Ambien) 5 mg PO HS [facility] Last Admin: 09/10/17 23:09 Dose: 5 mg - Labs Labs: 09/11/17 05:45 - Constitutional Appears: Non-toxic, No Acute Distress - Eye Exam Eye Exam: EOMI, PERRL - ENT Exam ENT Exam: Mucous Membranes Moist - Respiratory Exam Respiratory Exam: Clear to Ausculation Bilateral. absent: Rales, Rhonchi, Wheezes - Cardiovascular Exam Cardiovascular Exam: RRR, +S1, +S2 - GI/Abdominal Exam GI & Abdominal Exam: Soft, Normal Bowel Sounds. absent: Distended, Firm, Guarding, Rigid, Tenderness, Organomegaly - Extremities Exam Extremities Exam: absent: Pedal Edema Additional comments: hematoma in right groin, improving - Neurological Exam Neurological Exam: Alert, Awake, Oriented x3 - Psychiatric Exam Psychiatric exam: Normal Affect, Normal Mood - Skin Skin Exam: Dry, Warm Assessment and Plan - Assessment and Plan (Free Text) Assessment: Patient is a 67yo female with PMHx significant for COPD, HTN, recent STEMI (09/03) s/p auto-lysis of an LAD lesion on cardiac catheterization, CAD with wall motion abnormality and systolic CHF with EF~30% who presented initially with chest pain and SOB and has now been moved to TCU -Acute blood loss anemia following PCI, on dual antiplatelet therapy - hematoma in right groin -Significant ecchymosis on RUE and RLE -Multi-vessel CAD with recent STEMI -Systolic CHF with EF 30% on recent catheterization -COPD -HTN Plan: -Continue to monitor right groin hematoma for any concern of expansion/blood loss in to this limb/area -No evidence of overt GI blood loss -S/P 2 units PRBCs with more than appropriate response -CT reviewed - hematoma noted -Protonix 40mg PO QAMAC -Octreotide 100mcg SC BID for high output to ostomy -Nytatin swish and swallow, monitor for improvement -No indication for urgent endoscopic interventions at this time; will benefit as outpatient when patient can safely be off DAP therapy -Ambulation as tolerated -Miralax to prevent constipation PRN <Edmundo Nichole - Last Filed: 09/11/17 15:37> Objective - Vital Signs/Intake and Output Vital Signs (last 24 hours): Temp Pulse Resp BP Pulse Ox 97.5 F L 89 20 121/87 95 09/11/17 08:14 09/11/17 10:00 09/11/17 08:14 09/11/17 10:00 09/11/17 10:00 - Medications Medications: Current Medications Albuterol/Ipratropium (Duoneb 3 Mg/0.5 Mg (3 Ml) Ud) 3 ml INH RQ4 [facility] Last Admin: 09/11/17 12:09 Dose: 3 ml Alprazolam (Xanax) 0.5 mg PO Q8@0600,1400,2200 [facility] Last Admin: 09/11/17 13:19 Dose: 0.5 mg Aspirin (Ecotrin) 81 mg PO DAILY [facility] Last Admin: 09/11/17 08:49 Dose: 81 mg Atorvastatin Calcium (Lipitor) 20 mg PO DAILY@2100 [facility] Last Admin: 09/10/17 21:10 Dose: 20 mg Calcium/Vitamin D (Oyster Shell Calcium/Vitamin D 500 Mg-200 Iu) 1 tab PO DAILY [facility] Last Admin: 09/11/17 08:49 Dose: 1 tab Clopidogrel Bisulfate (Plavix) 75 mg PO DAILY [facility] Last Admin: 09/11/17 08:49 Dose: 75 mg Cyanocobalamin (Vitamin B12 1000 Mcg/Ml Inj) 1,000 mcg IM Q2W [facility] Ergocalciferol (Drisdol 50,000 Intl Units Cap) 1 cap PO MO [facility] Ferrous Sulfate (Feosol) 325 mg PO BID [facility] Last Admin: 09/11/17 08:49 Dose: 325 mg Fluticasone Propionate (Flonase) 2 spr PRATIBHA HS PRN PRN Reason: Allergy symptoms Hydromorphone HCl (Dilaudid) 1 mg PO Q8 PRN PRN Reason: for pain 8-10 Last Admin: 09/11/17 01:00 Dose: 1 mg Azithromycin 500 mg/ Sodium (Chloride) 250 mls @ 250 mls/hr IVPB DAILY@2100 [facility] PRN Reason: Protocol Last Admin: 09/10/17 21:22 Dose: 250 mls/hr Losartan Potassium (Cozaar) 12.5 mg PO DAILY [facility] Last Admin: 09/11/17 08:48 Dose: 12.5 mg Metoprolol Succinate (Toprol Xl) 25 mg PO DAILY [facility] Last Admin: 09/11/17 08:50 Dose: 25 mg Multivitamins/Minerals (Therapeutic-M Tab) 1 tab PO DAILY [facility] Last Admin: 09/11/17 08:50 Dose: 1 tab Nicotine (Nicoderm Cq) 1 patch TD DAILY [facility] Last Admin: 09/11/17 08:49 Dose: 1 patch Nystatin (Nystatin Oral Susp) 5 ml PO QID [facility] Last Admin: 09/11/17 12:53 Dose: 5 ml Octreotide Acetate (Sandostatin) 100 mcg SC Q12 [facility] Last Admin: 09/11/17 08:54 Dose: 100 mcg Pantoprazole Sodium (Protonix Ec Tab) 40 mg PO DAILY [facility] Last Admin: 09/11/17 08:49 Dose: 40 mg Prednisone (Prednisone Tab) 20 mg PO DAILY [facility] Last Admin: 09/11/17 08:49 Dose: 20 mg Fluticasone/Salmeterol (Advair Diskus 250/50) 1 puff IH Q12 [facility] Last Admin: 09/11/17 08:47 Dose: 1 puff Sodium Bicarbonate (Sodium Bicarbonate Tab) 650 mg PO Q12 [facility] Last Admin: 09/11/17 08:48 Dose: 650 mg Zolpidem Tartrate (Ambien) 5 mg PO HS [facility] Last Admin: 09/10/17 23:09 Dose: 5 mg - Labs Labs: 09/11/17 05:45 Attending/Attestation - Attestation I have personally seen and examined this patient.: Yes I have fully participated in the care of the patient.: Yes I have reviewed all pertinent clinical information, including history, physical exam and plan: Yes Notes (Text): 09/11/17 15:36 Patient seen and examined at bedside this am with GI fellow. In a nutshell this is a 67 yr old female with PMHx significant for COPD, HTN, recent STEMI (09/03/17 ) s/p cardiac catheterization, CAD with wall motion abnormality and systolic CHF with EF~30% who presented initially with chest pain and SOB and has now been moved to TCU. GI consulted with slow drop in hb. Large echchymotic area in pelvis and groin. Concern for hematoma with hemolysis. CT abdomen and pelvis confirmed the suspicion. No indication for urgent endoscopic interventions at this time. Supportive care, transfusion support as needed - goal HGB per cardiology recommendations. Will sign off at this time. Thank you for letting us participate in the care of your patient
--- NOTE | 2017-09-11 16:36 | CP.PCM.PN ---
Subjective - Date & Time of Evaluation Date of Evaluation: 09/11/17 Time of Evaluation: 16:00 - Subjective Subjective: Participating with PT CT scan findings noted Objective - Vital Signs/Intake and Output Vital Signs (last 24 hours): Temp Pulse Resp BP Pulse Ox 97.5 F L 89 20 121/87 95 09/11/17 08:14 09/11/17 10:00 09/11/17 08:14 09/11/17 10:00 09/11/17 10:00 - Medications Medications: Current Medications Albuterol/Ipratropium (Duoneb 3 Mg/0.5 Mg (3 Ml) Ud) 3 ml INH RQ4 [facility] Last Admin: 09/11/17 12:09 Dose: 3 ml Alprazolam (Xanax) 0.5 mg PO Q8@0600,1400,2200 [facility] Last Admin: 09/11/17 13:19 Dose: 0.5 mg Aspirin (Ecotrin) 81 mg PO DAILY [facility] Last Admin: 09/11/17 08:49 Dose: 81 mg Atorvastatin Calcium (Lipitor) 20 mg PO DAILY@2100 [facility] Last Admin: 09/10/17 21:10 Dose: 20 mg Calcium/Vitamin D (Oyster Shell Calcium/Vitamin D 500 Mg-200 Iu) 1 tab PO DAILY [facility] Last Admin: 09/11/17 08:49 Dose: 1 tab Clopidogrel Bisulfate (Plavix) 75 mg PO DAILY [facility] Last Admin: 09/11/17 08:49 Dose: 75 mg Cyanocobalamin (Vitamin B12 1000 Mcg/Ml Inj) 1,000 mcg IM Q2W [facility] Ergocalciferol (Drisdol 50,000 Intl Units Cap) 1 cap PO MO [facility] Ferrous Sulfate (Feosol) 325 mg PO BID [facility] Last Admin: 09/11/17 08:49 Dose: 325 mg Fluticasone Propionate (Flonase) 2 spr PRATIBHA HS PRN PRN Reason: Allergy symptoms Hydromorphone HCl (Dilaudid) 1 mg PO Q8 PRN PRN Reason: for pain 8-10 Last Admin: 09/11/17 01:00 Dose: 1 mg Azithromycin 500 mg/ Sodium (Chloride) 250 mls @ 250 mls/hr IVPB DAILY@2100 [facility] PRN Reason: Protocol Last Admin: 09/10/17 21:22 Dose: 250 mls/hr Losartan Potassium (Cozaar) 12.5 mg PO DAILY [facility] Last Admin: 09/11/17 08:48 Dose: 12.5 mg Metoprolol Succinate (Toprol Xl) 25 mg PO DAILY [facility] Last Admin: 09/11/17 08:50 Dose: 25 mg Multivitamins/Minerals (Therapeutic-M Tab) 1 tab PO DAILY [facility] Last Admin: 09/11/17 08:50 Dose: 1 tab Nicotine (Nicoderm Cq) 1 patch TD DAILY [facility] Last Admin: 09/11/17 08:49 Dose: 1 patch Nystatin (Nystatin Oral Susp) 5 ml PO QID [facility] Last Admin: 09/11/17 12:53 Dose: 5 ml Octreotide Acetate (Sandostatin) 100 mcg SC Q12 [facility] Last Admin: 09/11/17 08:54 Dose: 100 mcg Pantoprazole Sodium (Protonix Ec Tab) 40 mg PO DAILY [facility] Last Admin: 09/11/17 08:49 Dose: 40 mg Prednisone (Prednisone Tab) 20 mg PO DAILY [facility] Last Admin: 09/11/17 08:49 Dose: 20 mg Fluticasone/Salmeterol (Advair Diskus 250/50) 1 puff IH Q12 [facility] Last Admin: 09/11/17 08:47 Dose: 1 puff Sodium Bicarbonate (Sodium Bicarbonate Tab) 650 mg PO Q12 [facility] Last Admin: 09/11/17 08:48 Dose: 650 mg Zolpidem Tartrate (Ambien) 5 mg PO HS [facility] Last Admin: 09/10/17 23:09 Dose: 5 mg - Labs Labs: 09/11/17 05:45 - Head Exam Head Exam: ATRAUMATIC - Eye Exam Eye Exam: Normal appearance - ENT Exam ENT Exam: Mucous Membranes Dry - Respiratory Exam Respiratory Exam: NORMAL BREATHING PATTERN - Cardiovascular Exam Cardiovascular Exam: +S1, +S2 - GI/Abdominal Exam GI & Abdominal Exam: Normal Bowel Sounds - Extremities Exam Extremities Exam: Normal Inspection Assessment and Plan (1) Anemia Assessment & Plan: hematoma noted by CT; secondary to cath intervention and antiplatelets s/p 2U PRBC normal iron/b12/folate stores H/H improved Status: Acute
[2017-09-11] MEDS: Azithromycin 500 MG in Sodium Chloride 0.9% 250 ML IVPB SCH (21:28)
[2017-09-12] MEDS: Albuterol-Ipratrop 3 mg / 0.5 (3 ml) UD INH SCH ×7 (04:22→23:15)
[2017-09-12 07:31] LABS: HEMOGLOBIN 10.6 g/dL (12.0-16.0); MEAN CELL VOLUME 93.9 fl (81.0-99.0); MEAN CORPUSCULAR HEMOGLOBIN 32.5 pg (27.0-31.0); MEAN CORPUSCULAR HGB CONC 34.6 g/dL (33.0-37.0); RBC 3.26 Mil/uL (3.80-5.20); WHITE BLOOD COUNT 17.4 K/uL (4.8-10.8)
[2017-09-12] MEDS: Fluticasone-Salmeterol 250-50mcg Diskus IH SCH ×2 (09:39→22:03)
[2017-09-12] MEDS: Nystatin 100,000 Units/ml Oral Susp 5 ml UD PO SCH ×4 (09:40→22:04)
[2017-09-12] MEDS: Metoprolol Succinate 25 mg XL Tab PO SCH (09:41)
[2017-09-12] MEDS: Pantoprazole 40 mg EC Tab PO SCH (09:41)
[2017-09-12] MEDS: Calcium-Vit D 500 mg-200 Units Tab UD PO SCH (09:41)
--- NOTE | 2017-09-12 09:43 | CP.PCM.PN ---
<Anthony Rene - Last Filed: 09/12/17 12:17> Subjective - Date & Time of Evaluation Date of Evaluation: 09/12/17 Time of Evaluation: 07:55 - Subjective Subjective: Evaluated at bedside with Dr Munson during rounds Feels much better, stable. Denies CP, SOB, palpitations, nausea, vomiting, melena, hematochezia. No acute events overnight. C/O Anxiety at times but she is able to control it and doesnt want to be evaluated by psych. Denies SI, HI, hallucinations Objective - Vital Signs/Intake and Output Vital Signs (last 24 hours): Temp Pulse Resp BP Pulse Ox 97.7 F 78 20 139/62 99 09/12/17 08:39 09/12/17 08:39 09/12/17 08:39 09/12/17 08:39 09/12/17 08:39 - Medications Medications: Current Medications Albuterol/Ipratropium (Duoneb 3 Mg/0.5 Mg (3 Ml) Ud) 3 ml INH RQ4 [facility] Last Admin: 09/12/17 08:21 Dose: Not Given Alprazolam (Xanax) 0.5 mg PO Q8@0600,1400,2200 [facility] Last Admin: 09/12/17 06:05 Dose: 0.5 mg Aspirin (Ecotrin) 81 mg PO DAILY [facility] Last Admin: 09/11/17 08:49 Dose: 81 mg Atorvastatin Calcium (Lipitor) 20 mg PO DAILY@2100 [facility] Last Admin: 09/11/17 21:27 Dose: 20 mg Calcium/Vitamin D (Oyster Shell Calcium/Vitamin D 500 Mg-200 Iu) 1 tab PO DAILY [facility] Last Admin: 09/11/17 08:49 Dose: 1 tab Clopidogrel Bisulfate (Plavix) 75 mg PO DAILY [facility] Last Admin: 09/11/17 08:49 Dose: 75 mg Cyanocobalamin (Vitamin B12 1000 Mcg/Ml Inj) 1,000 mcg IM Q2W [facility] Ergocalciferol (Drisdol 50,000 Intl Units Cap) 1 cap PO MO [facility] Ferrous Sulfate (Feosol) 325 mg PO BID [facility] Last Admin: 09/11/17 16:40 Dose: 325 mg Fluticasone Propionate (Flonase) 2 spr PRATIBHA HS PRN PRN Reason: Allergy symptoms Last Admin: 09/11/17 16:39 Dose: 2 spr Hydromorphone HCl (Dilaudid) 1 mg PO Q8 PRN PRN Reason: for pain 8-10 Last Admin: 09/11/17 01:00 Dose: 1 mg Azithromycin 500 mg/ Sodium (Chloride) 250 mls @ 250 mls/hr IVPB DAILY@1700 [facility] PRN Reason: Protocol Losartan Potassium (Cozaar) 12.5 mg PO DAILY [facility] Last Admin: 09/11/17 08:48 Dose: 12.5 mg Metoprolol Succinate (Toprol Xl) 25 mg PO DAILY [facility] Last Admin: 09/11/17 08:50 Dose: 25 mg Multivitamins/Minerals (Therapeutic-M Tab) 1 tab PO DAILY [facility] Last Admin: 09/11/17 08:50 Dose: 1 tab Nicotine (Nicoderm Cq) 1 patch TD DAILY [facility] Last Admin: 09/11/17 08:49 Dose: 1 patch Nystatin (Nystatin Oral Susp) 5 ml PO QID [facility] Last Admin: 09/11/17 21:28 Dose: 5 ml Octreotide Acetate (Sandostatin) 100 mcg SC Q12 [facility] Last Admin: 09/11/17 21:54 Dose: 100 mcg Pantoprazole Sodium (Protonix Ec Tab) 40 mg PO DAILY [facility] Last Admin: 09/11/17 08:49 Dose: 40 mg Prednisone (Prednisone Tab) 20 mg PO DAILY [facility] Last Admin: 09/11/17 08:49 Dose: 20 mg Fluticasone/Salmeterol (Advair Diskus 250/50) 1 puff IH Q12 [facility] Last Admin: 09/11/17 21:27 Dose: 1 puff Sodium Bicarbonate (Sodium Bicarbonate Tab) 650 mg PO Q12 [facility] Last Admin: 09/11/17 21:27 Dose: 650 mg Zolpidem Tartrate (Ambien) 5 mg PO HS [facility] Last Admin: 09/11/17 21:30 Dose: 5 mg - Labs Labs: 09/12/17 06:50 - Constitutional Appears: Non-toxic, Chronically Ill - Eye Exam Eye Exam: PERRL - ENT Exam ENT Exam: Mucous Membranes Moist - Respiratory Exam Respiratory Exam: NORMAL BREATHING PATTERN. absent: Decreased Breath Sounds, Rales, Respiratory Distress - Cardiovascular Exam Cardiovascular Exam: REGULAR RHYTHM, +S1, +S2. absent: Gallop - GI/Abdominal Exam GI & Abdominal Exam: Soft, Normal Bowel Sounds. absent: Guarding, Rigid, Tenderness - Extremities Exam Extremities Exam: absent: Normal Inspection (Extensive area in LE and UE of ecchymosis that seems in resolution) Additional comments: 4 cm hematoma R/thigh - Neurological Exam Neurological Exam: Alert - Psychiatric Exam Psychiatric exam: Anxious (at times), Normal Affect, Normal Mood - Skin Skin Exam: Warm. absent: Normal Color Assessment and Plan - Assessment and Plan (Free Text) Assessment: Acute anemia improved after transfusion Poss due to hematoma in R/thigh and anticoagulation FOBT + Stable VS Doing better Lovenox stopped C/W Dual antiplatelet s/p AWMI Vascular Sx consult GI, Hem-onc, Sx, Cardio, Pulmonology consults appreciated <Porfirio Munson K - Last Filed: 09/13/17 11:04> Objective - Vital Signs/Intake and Output Vital Signs (last 24 hours): Temp Pulse Resp BP Pulse Ox 97.9 F 78 20 133/60 99 09/13/17 08:25 09/13/17 09:34 09/13/17 08:25 09/13/17 09:34 09/13/17 08:25 - Medications Medications: Current Medications Albuterol/Ipratropium (Duoneb 3 Mg/0.5 Mg (3 Ml) Ud) 3 ml INH RQ4 [facility] Last Admin: 09/13/17 07:28 Dose: Not Given Aspirin (Ecotrin) 81 mg PO DAILY [facility] Last Admin: 09/13/17 09:33 Dose: 81 mg Atorvastatin Calcium (Lipitor) 20 mg PO DAILY@2100 [facility] Last Admin: 09/12/17 22:04 Dose: 20 mg Calcium/Vitamin D (Oyster Shell Calcium/Vitamin D 500 Mg-200 Iu) 1 tab PO DAILY [facility] Last Admin: 09/13/17 09:33 Dose: 1 tab Clopidogrel Bisulfate (Plavix) 75 mg PO DAILY [facility] Last Admin: 09/13/17 09:33 Dose: 75 mg Cyanocobalamin (Vitamin B12 1000 Mcg/Ml Inj) 1,000 mcg IM Q2W [facility] Ergocalciferol (Drisdol 50,000 Intl Units Cap) 1 cap PO MO [facility] Ferrous Sulfate (Feosol) 325 mg PO BID [facility] Last Admin: 09/13/17 09:33 Dose: 325 mg Fluticasone Propionate (Flonase) 2 spr PRATIBHA HS PRN PRN Reason: Allergy symptoms Last Admin: 09/11/17 16:39 Dose: 2 spr Hydromorphone HCl (Dilaudid) 1 mg PO Q8 PRN PRN Reason: for pain 8-10 Last Admin: 09/13/17 00:04 Dose: 1 mg Azithromycin 500 mg/ Sodium (Chloride) 250 mls @ 250 mls/hr IVPB DAILY@1700 [facility] PRN Reason: Protocol Last Admin: 09/12/17 17:18 Dose: 250 mls/hr Losartan Potassium (Cozaar) 12.5 mg PO DAILY [facility] Last Admin: 09/13/17 09:34 Dose: 12.5 mg Metoprolol Succinate (Toprol Xl) 25 mg PO DAILY [facility] Last Admin: 09/13/17 09:34 Dose: 25 mg Multivitamins/Minerals (Therapeutic-M Tab) 1 tab PO DAILY [facility] Last Admin: 09/13/17 09:33 Dose: 1 tab Nicotine (Nicoderm Cq) 1 patch TD DAILY [facility] Last Admin: 09/13/17 09:34 Dose: 1 patch Nystatin (Nystatin Oral Susp) 5 ml PO QID [facility] Last Admin: 09/13/17 09:34 Dose: 5 ml Octreotide Acetate (Sandostatin) 100 mcg SC Q12 [facility] Last Admin: 09/13/17 09:32 Dose: 100 mcg Pantoprazole Sodium (Protonix Ec Tab) 40 mg PO DAILY [facility] Last Admin: 09/13/17 09:32 Dose: 40 mg Prednisone (Prednisone Tab) 10 mg PO DAILY [facility] Fluticasone/Salmeterol (Advair Diskus 250/50) 1 puff IH Q12 [facility] Last Admin: 09/13/17 09:31 Dose: 1 puff Sodium Bicarbonate (Sodium Bicarbonate Tab) 650 mg PO Q12 [facility] Last Admin: 09/13/17 09:32 Dose: 650 mg Zolpidem Tartrate (Ambien) 5 mg PO HS [facility] Last Admin: 09/13/17 00:40 Dose: 5 mg - Labs Labs: 09/12/17 06:50 Assessment and Plan - Assessment and Plan (Free Text) Assessment: Patient was personally seen and examined by me in rounds with residents. Available labs and diagnostic data reviewed. Case, patient's conditions and management plan discussed with residents in rounds. Agree with resident's progress note. Plan: As ordered.
[2017-09-12] MEDS: Multivitamin With Minerals Tab PO SCH (09:48)
--- NOTE | 2017-09-12 14:52 | CP.PCM.PN ---
Subjective - Date & Time of Evaluation Date of Evaluation: 09/12/17 Time of Evaluation: 14:53 - Subjective Subjective: CLINICALLY IMPROVING NO APPARENT DISTRESS Objective - Vital Signs/Intake and Output Vital Signs (last 24 hours): Temp Pulse Resp BP Pulse Ox 97.7 F 89 20 139/62 94 L 09/12/17 08:39 09/12/17 10:21 09/12/17 08:39 09/12/17 09:42 09/12/17 10:21 - Medications Medications: Current Medications Albuterol/Ipratropium (Duoneb 3 Mg/0.5 Mg (3 Ml) Ud) 3 ml INH RQ4 [facility] Last Admin: 09/12/17 11:58 Dose: 3 ml Alprazolam (Xanax) 0.5 mg PO Q8@0600,1400,2200 [facility] Last Admin: 09/12/17 13:14 Dose: 0.5 mg Aspirin (Ecotrin) 81 mg PO DAILY [facility] Last Admin: 09/12/17 09:42 Dose: 81 mg Atorvastatin Calcium (Lipitor) 20 mg PO DAILY@2100 [facility] Last Admin: 09/11/17 21:27 Dose: 20 mg Calcium/Vitamin D (Oyster Shell Calcium/Vitamin D 500 Mg-200 Iu) 1 tab PO DAILY [facility] Last Admin: 09/12/17 09:41 Dose: 1 tab Clopidogrel Bisulfate (Plavix) 75 mg PO DAILY [facility] Last Admin: 09/12/17 09:41 Dose: 75 mg Cyanocobalamin (Vitamin B12 1000 Mcg/Ml Inj) 1,000 mcg IM Q2W [facility] Ergocalciferol (Drisdol 50,000 Intl Units Cap) 1 cap PO MO [facility] Ferrous Sulfate (Feosol) 325 mg PO BID [facility] Last Admin: 09/12/17 09:40 Dose: 325 mg Fluticasone Propionate (Flonase) 2 spr PRATIBHA HS PRN PRN Reason: Allergy symptoms Last Admin: 09/11/17 16:39 Dose: 2 spr Hydromorphone HCl (Dilaudid) 1 mg PO Q8 PRN PRN Reason: for pain 8-10 Last Admin: 09/11/17 01:00 Dose: 1 mg Azithromycin 500 mg/ Sodium (Chloride) 250 mls @ 250 mls/hr IVPB DAILY@1700 [facility] PRN Reason: Protocol Losartan Potassium (Cozaar) 12.5 mg PO DAILY [facility] Last Admin: 09/12/17 09:42 Dose: 12.5 mg Metoprolol Succinate (Toprol Xl) 25 mg PO DAILY [facility] Last Admin: 09/12/17 09:41 Dose: 25 mg Multivitamins/Minerals (Therapeutic-M Tab) 1 tab PO DAILY [facility] Last Admin: 09/12/17 09:48 Dose: 1 tab Nicotine (Nicoderm Cq) 1 patch TD DAILY [facility] Last Admin: 09/12/17 09:40 Dose: 1 patch Nystatin (Nystatin Oral Susp) 5 ml PO QID [facility] Last Admin: 09/12/17 12:23 Dose: 5 ml Octreotide Acetate (Sandostatin) 100 mcg SC Q12 [facility] Last Admin: 09/12/17 09:55 Dose: 100 mcg Pantoprazole Sodium (Protonix Ec Tab) 40 mg PO DAILY [facility] Last Admin: 09/12/17 09:41 Dose: 40 mg Prednisone (Prednisone Tab) 20 mg PO DAILY [facility] Last Admin: 09/12/17 09:41 Dose: 20 mg Fluticasone/Salmeterol (Advair Diskus 250/50) 1 puff IH Q12 [facility] Last Admin: 09/12/17 09:39 Dose: 1 puff Sodium Bicarbonate (Sodium Bicarbonate Tab) 650 mg PO Q12 [facility] Last Admin: 09/12/17 09:41 Dose: 650 mg Zolpidem Tartrate (Ambien) 5 mg PO HS [facility] Last Admin: 09/11/17 21:30 Dose: 5 mg - Labs Labs: 09/12/17 06:50 - Constitutional Appears: No Acute Distress - Head Exam Head Exam: ATRAUMATIC, NORMAL INSPECTION, NORMOCEPHALIC - Eye Exam Eye Exam: EOMI, Normal appearance, PERRL Pupil Exam: NORMAL ACCOMODATION, PERRL - ENT Exam ENT Exam: Mucous Membranes Moist, Normal Exam - Neck Exam Neck Exam: Full ROM, Normal Inspection. absent: Lymphadenopathy - Respiratory Exam Respiratory Exam: Prolonged Expiratory Phase, NORMAL BREATHING PATTERN - Cardiovascular Exam Cardiovascular Exam: REGULAR RHYTHM, +S1, +S2. absent: Murmur - GI/Abdominal Exam GI & Abdominal Exam: Soft, Normal Bowel Sounds. absent: Tenderness - Rectal Exam Rectal Exam: NORMAL INSPECTION - Extremities Exam Extremities Exam: Full ROM, Normal Capillary Refill, Normal Inspection. absent : Joint Swelling, Pedal Edema - Back Exam Back Exam: NORMAL INSPECTION - Neurological Exam Neurological Exam: Alert, Awake, CN II-XII Intact, Normal Gait, Oriented x3 - Psychiatric Exam Psychiatric exam: Normal Affect, Normal Mood - Skin Skin Exam: Dry, Intact, Normal Color, Warm Assessment and Plan - Assessment and Plan (Free Text) Assessment: COPD ANEMIA S/P [place] Plan: CONTINUE CURRENT RX
--- NOTE | 2017-09-12 15:36 | CP.PCM.CON ---
History of Present Illness - History of Present Illness History of Present Illness: Surgery Consult Note: Dr. Dunbar 67 year old female patient with PMHx of COPD, HTN, ileostomy, EGD 2013, gastritis, esophageal stricture, hiatial hernia, and a recent VA was seen and evaluated at bedside for hematoma on the right thigh. Patient reports that she has been taking dual antiplatlet therapy since the VA and she started developing ecchymosis all over her body due to blood pressure cuffs and lead placements. Reports that she just recently had a cardiac cath 09/02/17. Patient denies of any other complains at this time. Denies of having any recent F/N/V/C/ SOB/headache. PMHx: COPD, HTN, EGD 2013: gastritis, esophageal stricture, hiatial hernia, ileostomy, and a recent VA PSHx: Cardiac cath, Hysterectomy, Cholecystectomy, ileostomy Allergies: Sulfa drugs SocialHx: onger term smoker > 30 years, at least 1PPD, social drinker, denies any illicit drugs Review of Systems - Review of Systems All systems: reviewed and no additional remarkable complaints except - Integumentary Integumentary: As Per HPI - Hematologic/Lymphatic Hematologic: As Per HPI Past Patient History - Past Medical History & Family History Past Medical History?: Yes - Past Social History Smoking Status: Light Smoker < 10 Cigarettes Daily - CARDIAC Hx Cardiac Disorders: Yes Hx Congestive Heart Failure: Yes Hx Hypertension: Yes - PULMONARY Hx Respiratory Disorders: Yes Hx Chronic Obstructive Pulmonary Disease (COPD): Yes Hx Emphysema: Yes - NEUROLOGICAL Hx Neurological Disorder: Yes Other/Comment: FIBROMYALGIA - HEENT Hx HEENT Problems: No - RENAL Hx Chronic Kidney Disease: No - ENDOCRINE/METABOLIC Hx Endocrine Disorders: No - HEMATOLOGICAL/ONCOLOGICAL Hx AIDS: No Hx Human Immunodeficiency Virus (HIV): No - INTEGUMENTARY Hx Dermatological Problems: No - MUSCULOSKELETAL/RHEUMATOLOGICAL Hx Falls: No - GASTROINTESTINAL Hx Gastrointestinal Disorders: Yes Hx Ileostomy: Yes - GENITOURINARY/GYNECOLOGICAL Hx Genitourinary Disorders: No - PSYCHIATRIC Hx Substance Use: No - SURGICAL HISTORY Hx Surgeries: Yes Hx Cholecystectomy: Yes Hx Herniorrhaphy: Yes Hx Hysterectomy: Yes - ANESTHESIA Hx Anesthesia: Yes Hx Anesthesia Reactions: No Hx Malignant Hyperthermia: No Meds Allergies/Adverse Reactions: Allergies Allergy/AdvReac Type Severity Reaction Status Date / Time Sulfa (Sulfonamide Allergy crystallized Verified 09/08/17 23:14 Antibiotics) kidneys - Medications Medications: Current Medications Albuterol/Ipratropium (Duoneb 3 Mg/0.5 Mg (3 Ml) Ud) 3 ml INH RQ4 [facility] Last Admin: 09/12/17 11:58 Dose: 3 ml Alprazolam (Xanax) 0.5 mg PO Q8@0600,1400,2200 [facility] Last Admin: 09/12/17 13:14 Dose: 0.5 mg Aspirin (Ecotrin) 81 mg PO DAILY [facility] Last Admin: 09/12/17 09:42 Dose: 81 mg Atorvastatin Calcium (Lipitor) 20 mg PO DAILY@2100 [facility] Last Admin: 09/11/17 21:27 Dose: 20 mg Calcium/Vitamin D (Oyster Shell Calcium/Vitamin D 500 Mg-200 Iu) 1 tab PO DAILY [facility] Last Admin: 09/12/17 09:41 Dose: 1 tab Clopidogrel Bisulfate (Plavix) 75 mg PO DAILY [facility] Last Admin: 09/12/17 09:41 Dose: 75 mg Cyanocobalamin (Vitamin B12 1000 Mcg/Ml Inj) 1,000 mcg IM Q2W [facility] Ergocalciferol (Drisdol 50,000 Intl Units Cap) 1 cap PO MO [facility] Ferrous Sulfate (Feosol) 325 mg PO BID [facility] Last Admin: 09/12/17 09:40 Dose: 325 mg Fluticasone Propionate (Flonase) 2 spr PRATIBHA HS PRN PRN Reason: Allergy symptoms Last Admin: 09/11/17 16:39 Dose: 2 spr Hydromorphone HCl (Dilaudid) 1 mg PO Q8 PRN PRN Reason: for pain 8-10 Last Admin: 09/11/17 01:00 Dose: 1 mg Azithromycin 500 mg/ Sodium (Chloride) 250 mls @ 250 mls/hr IVPB DAILY@1700 [facility] PRN Reason: Protocol Losartan Potassium (Cozaar) 12.5 mg PO DAILY [facility] Last Admin: 09/12/17 09:42 Dose: 12.5 mg Metoprolol Succinate (Toprol Xl) 25 mg PO DAILY [facility] Last Admin: 09/12/17 09:41 Dose: 25 mg Multivitamins/Minerals (Therapeutic-M Tab) 1 tab PO DAILY [facility] Last Admin: 09/12/17 09:48 Dose: 1 tab Nicotine (Nicoderm Cq) 1 patch TD DAILY [facility] Last Admin: 09/12/17 09:40 Dose: 1 patch Nystatin (Nystatin Oral Susp) 5 ml PO QID [facility] Last Admin: 09/12/17 12:23 Dose: 5 ml Octreotide Acetate (Sandostatin) 100 mcg SC Q12 [facility] Last Admin: 09/12/17 09:55 Dose: 100 mcg Pantoprazole Sodium (Protonix Ec Tab) 40 mg PO DAILY [facility] Last Admin: 09/12/17 09:41 Dose: 40 mg Prednisone (Prednisone Tab) 20 mg PO DAILY [facility] Last Admin: 09/12/17 09:41 Dose: 20 mg Fluticasone/Salmeterol (Advair Diskus 250/50) 1 puff IH Q12 [facility] Last Admin: 09/12/17 09:39 Dose: 1 puff Sodium Bicarbonate (Sodium Bicarbonate Tab) 650 mg PO Q12 [facility] Last Admin: 09/12/17 09:41 Dose: 650 mg Zolpidem Tartrate (Ambien) 5 mg PO HS [facility] Last Admin: 09/11/17 21:30 Dose: 5 mg Physical Exam - Constitutional Additional comments: - Constitutional Appears: Well, Non-toxic, No Acute Distress - Eye Exam Eye Exam: Normal appearance - Neck Exam Neck exam: Positive for: Normal Inspection - Respiratory Exam Respiratory Exam: NORMAL BREATHING PATTERN - GI/Abdominal Exam GI & Abdominal Exam: Soft. absent: Mass, Rigid, Tenderness - Rectal Exam Rectal Exam: Deferred - Extremities Exam Additional comments: Site of cardiac cath entry point on R thigh appears non-infected. Hematoma appears to have resolved on its own. no active bleeding Ecchymosis noted on bilateral lower and upper extremities Results - Vital Signs Recent Vital Signs: Last Vital Signs Temp 97.7 F 09/12/17 08:39 Pulse 89 09/12/17 10:21 Resp 20 09/12/17 08:39 BP 139/62 09/12/17 09:42 Pulse Ox 94 L 09/12/17 10:21 - Labs Result Diagrams: 09/12/17 06:50 Labs: Laboratory Results - last 24 hr 09/12/17 06:50 WBC 17.4 H RBC 3.26 L Hgb 10.6 L Hct 30.6 L MCV 93.9 MCH 32.5 H MCHC 34.6 RDW 15.0 H Plt Count 207 Assessment & Plan - Assessment and Plan (Free Text) Assessment: 67 year old female patient with significant PMHx with right thigh hematoma 2 wks s/p cardiac cath Plan: -Patient seen and evaluated -RLE US Ordered will followup D/W Dr. Julianne Mayorga PGY2
[2017-09-12] MEDS: Azithromycin 500 MG in Sodium Chloride 0.9% 250 ML IVPB SCH (17:18)
[2017-09-13] MEDS: Albuterol-Ipratrop 3 mg / 0.5 (3 ml) UD INH SCH ×6 (03:48→23:52)
--- NOTE | 2017-09-13 05:37 | CP.PCM.PN ---
Subjective - Date & Time of Evaluation Date of Evaluation: 09/13/17 Time of Evaluation: 05:45 - Subjective Subjective: Vascular surgery Note for Dr Whitaker Patient seen and examined at bedside. No acute event overnight. Patient states that she still has some tenderness. She was able to do PT yesterday. US will be done this morning. Patient has no other complaints. Objective - Vital Signs/Intake and Output Vital Signs (last 24 hours): Temp Pulse Resp BP Pulse Ox 97.0 F L 73 20 114/60 100 09/12/17 19:39 09/12/17 19:39 09/12/17 19:39 09/12/17 19:39 09/12/17 19:39 - Medications Medications: Current Medications Albuterol/Ipratropium (Duoneb 3 Mg/0.5 Mg (3 Ml) Ud) 3 ml INH RQ4 [facility] Last Admin: 09/13/17 03:48 Dose: 3 ml Alprazolam (Xanax) 0.5 mg PO Q8@0600,1400,2200 [facility] Last Admin: 09/12/17 22:05 Dose: 0.5 mg Aspirin (Ecotrin) 81 mg PO DAILY [facility] Last Admin: 09/12/17 09:42 Dose: 81 mg Atorvastatin Calcium (Lipitor) 20 mg PO DAILY@2100 [facility] Last Admin: 09/12/17 22:04 Dose: 20 mg Calcium/Vitamin D (Oyster Shell Calcium/Vitamin D 500 Mg-200 Iu) 1 tab PO DAILY [facility] Last Admin: 09/12/17 09:41 Dose: 1 tab Clopidogrel Bisulfate (Plavix) 75 mg PO DAILY [facility] Last Admin: 09/12/17 09:41 Dose: 75 mg Cyanocobalamin (Vitamin B12 1000 Mcg/Ml Inj) 1,000 mcg IM Q2W [facility] Ergocalciferol (Drisdol 50,000 Intl Units Cap) 1 cap PO MO [facility] Ferrous Sulfate (Feosol) 325 mg PO BID [facility] Last Admin: 09/12/17 17:17 Dose: 325 mg Fluticasone Propionate (Flonase) 2 spr PRATIBHA HS PRN PRN Reason: Allergy symptoms Last Admin: 09/11/17 16:39 Dose: 2 spr Hydromorphone HCl (Dilaudid) 1 mg PO Q8 PRN PRN Reason: for pain 8-10 Last Admin: 09/13/17 00:04 Dose: 1 mg Azithromycin 500 mg/ Sodium (Chloride) 250 mls @ 250 mls/hr IVPB DAILY@1700 [facility] PRN Reason: Protocol Last Admin: 09/12/17 17:18 Dose: 250 mls/hr Losartan Potassium (Cozaar) 12.5 mg PO DAILY [facility] Last Admin: 09/12/17 09:42 Dose: 12.5 mg Metoprolol Succinate (Toprol Xl) 25 mg PO DAILY [facility] Last Admin: 09/12/17 09:41 Dose: 25 mg Multivitamins/Minerals (Therapeutic-M Tab) 1 tab PO DAILY [facility] Last Admin: 09/12/17 09:48 Dose: 1 tab Nicotine (Nicoderm Cq) 1 patch TD DAILY [facility] Last Admin: 09/12/17 09:40 Dose: 1 patch Nystatin (Nystatin Oral Susp) 5 ml PO QID [facility] Last Admin: 09/12/17 22:04 Dose: 5 ml Octreotide Acetate (Sandostatin) 100 mcg SC Q12 [facility] Last Admin: 09/12/17 22:04 Dose: 100 mcg Pantoprazole Sodium (Protonix Ec Tab) 40 mg PO DAILY [facility] Last Admin: 09/12/17 09:41 Dose: 40 mg Prednisone (Prednisone Tab) 20 mg PO DAILY [facility] Last Admin: 09/12/17 09:41 Dose: 20 mg Fluticasone/Salmeterol (Advair Diskus 250/50) 1 puff IH Q12 [facility] Last Admin: 09/12/17 22:03 Dose: 1 puff Sodium Bicarbonate (Sodium Bicarbonate Tab) 650 mg PO Q12 [facility] Last Admin: 09/12/17 22:05 Dose: 650 mg Zolpidem Tartrate (Ambien) 5 mg PO HS [facility] Last Admin: 09/13/17 00:40 Dose: 5 mg - Labs Labs: 09/12/17 06:50 - Constitutional Appears: No Acute Distress - Head Exam Head Exam: ATRAUMATIC, NORMOCEPHALIC - Eye Exam Eye Exam: EOMI, Normal appearance Pupil Exam: PERRL - ENT Exam ENT Exam: Mucous Membranes Moist - Respiratory Exam Respiratory Exam: NORMAL BREATHING PATTERN - Cardiovascular Exam Cardiovascular Exam: REGULAR RHYTHM - GI/Abdominal Exam GI & Abdominal Exam: Soft. absent: Tenderness - Extremities Exam Extremities Exam: Normal Capillary Refill Additional comments: groin is mildly tender, hematoma appears to be resolving but ecchymosis is has grown slightly larger outside demarcated borders - Neurological Exam Neurological Exam: Alert, Awake, Oriented x3 - Psychiatric Exam Psychiatric exam: Normal Affect, Normal Mood - Skin Skin Exam: Dry, Intact, Warm Additional comments: Ecchymosis noted on bilateral lower and upper extremities Assessment and Plan - Assessment and Plan (Free Text) Plan: 67 F with right groin hematoma s/p cardiac cath -US will be done this morning - f/u study -Medical management as per primary -will discuss with Dr. Julianne Sarkar PGY1
--- NOTE | 2017-09-13 09:11 | PN ---
DATE: 09/13/2017 SUBJECTIVE: The patient is seen and examined. Interim events noted. Consults noted and appreciated. Surgery followup and interventions noted and appreciated. The patient remains in Transitional Care Unit. The patient feels okay. Pain is improving. No chest pain, no shortness of breath. Current medication helping well. PHYSICAL EXAMINATION: GENERAL: The patient is in no acute distress. VITAL SIGNS: Stable. HEART: S1 and S2, normal and regular. LUNGS: Good bilateral air exchange. ABDOMEN: Soft and nontender. EXTREMITIES: No edema. No calf swelling. No tenderness. No acute ischemia. Right thigh ecchymosis is healing. No sign of worsening hematoma. No sign of distal neurovascular compromise. 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 DIAGNOSTIC DATA: Available diagnostic data reviewed. PLAN: Overall, the patient's general medical condition remains stable. The patient needs for extremity ultrasound today. Plan as ordered. Case and plan discussed with the patient. Porfirio Munson MD
[2017-09-13] MEDS: Fluticasone-Salmeterol 250-50mcg Diskus IH SCH ×2 (09:31→21:45)
[2017-09-13] MEDS: Pantoprazole 40 mg EC Tab PO SCH (09:32)
[2017-09-13] MEDS: Multivitamin With Minerals Tab PO SCH (09:33)
[2017-09-13] MEDS: Calcium-Vit D 500 mg-200 Units Tab UD PO SCH (09:33)
[2017-09-13] MEDS: Metoprolol Succinate 25 mg XL Tab PO SCH (09:34)
[2017-09-13] MEDS: Nystatin 100,000 Units/ml Oral Susp 5 ml UD PO SCH ×4 (09:34→21:45)
--- NOTE | 2017-09-13 10:48 | CP.PCM.PN ---
Subjective - Date & Time of Evaluation Date of Evaluation: 09/13/17 Time of Evaluation: 10:48 - Subjective Subjective: SOB IMPROVED COUGH LESS ECCHYMOSES OF SKIN PERSISTS Objective - Vital Signs/Intake and Output Vital Signs (last 24 hours): Temp Pulse Resp BP Pulse Ox 97.9 F 78 20 133/60 99 09/13/17 08:25 09/13/17 09:34 09/13/17 08:25 09/13/17 09:34 09/13/17 08:25 - Medications Medications: Current Medications Albuterol/Ipratropium (Duoneb 3 Mg/0.5 Mg (3 Ml) Ud) 3 ml INH RQ4 [facility] Last Admin: 09/13/17 07:28 Dose: Not Given Aspirin (Ecotrin) 81 mg PO DAILY [facility] Last Admin: 09/13/17 09:33 Dose: 81 mg Atorvastatin Calcium (Lipitor) 20 mg PO DAILY@2100 [facility] Last Admin: 09/12/17 22:04 Dose: 20 mg Calcium/Vitamin D (Oyster Shell Calcium/Vitamin D 500 Mg-200 Iu) 1 tab PO DAILY [facility] Last Admin: 09/13/17 09:33 Dose: 1 tab Clopidogrel Bisulfate (Plavix) 75 mg PO DAILY [facility] Last Admin: 09/13/17 09:33 Dose: 75 mg Cyanocobalamin (Vitamin B12 1000 Mcg/Ml Inj) 1,000 mcg IM Q2W [facility] Ergocalciferol (Drisdol 50,000 Intl Units Cap) 1 cap PO MO [facility] Ferrous Sulfate (Feosol) 325 mg PO BID [facility] Last Admin: 09/13/17 09:33 Dose: 325 mg Fluticasone Propionate (Flonase) 2 spr PRATIBHA HS PRN PRN Reason: Allergy symptoms Last Admin: 09/11/17 16:39 Dose: 2 spr Hydromorphone HCl (Dilaudid) 1 mg PO Q8 PRN PRN Reason: for pain 8-10 Last Admin: 09/13/17 00:04 Dose: 1 mg Azithromycin 500 mg/ Sodium (Chloride) 250 mls @ 250 mls/hr IVPB DAILY@1700 [facility] PRN Reason: Protocol Last Admin: 09/12/17 17:18 Dose: 250 mls/hr Losartan Potassium (Cozaar) 12.5 mg PO DAILY [facility] Last Admin: 09/13/17 09:34 Dose: 12.5 mg Metoprolol Succinate (Toprol Xl) 25 mg PO DAILY [facility] Last Admin: 09/13/17 09:34 Dose: 25 mg Multivitamins/Minerals (Therapeutic-M Tab) 1 tab PO DAILY [facility] Last Admin: 09/13/17 09:33 Dose: 1 tab Nicotine (Nicoderm Cq) 1 patch TD DAILY [facility] Last Admin: 09/13/17 09:34 Dose: 1 patch Nystatin (Nystatin Oral Susp) 5 ml PO QID [facility] Last Admin: 09/13/17 09:34 Dose: 5 ml Octreotide Acetate (Sandostatin) 100 mcg SC Q12 [facility] Last Admin: 09/13/17 09:32 Dose: 100 mcg Pantoprazole Sodium (Protonix Ec Tab) 40 mg PO DAILY [facility] Last Admin: 09/13/17 09:32 Dose: 40 mg Fluticasone/Salmeterol (Advair Diskus 250/50) 1 puff IH Q12 [facility] Last Admin: 09/13/17 09:31 Dose: 1 puff Sodium Bicarbonate (Sodium Bicarbonate Tab) 650 mg PO Q12 [facility] Last Admin: 09/13/17 09:32 Dose: 650 mg Zolpidem Tartrate (Ambien) 5 mg PO HS [facility] Last Admin: 09/13/17 00:40 Dose: 5 mg - Labs Labs: 09/12/17 06:50 - Constitutional Appears: No Acute Distress - Head Exam Head Exam: ATRAUMATIC, NORMAL INSPECTION, NORMOCEPHALIC - Eye Exam Eye Exam: EOMI, Normal appearance, PERRL Pupil Exam: NORMAL ACCOMODATION, PERRL - ENT Exam ENT Exam: Mucous Membranes Moist, Normal Exam - Neck Exam Neck Exam: Full ROM, Normal Inspection. absent: Lymphadenopathy - Respiratory Exam Respiratory Exam: Prolonged Expiratory Phase, NORMAL BREATHING PATTERN - Cardiovascular Exam Cardiovascular Exam: REGULAR RHYTHM, +S1, +S2. absent: Murmur - GI/Abdominal Exam GI & Abdominal Exam: Soft, Normal Bowel Sounds. absent: Tenderness - Rectal Exam Rectal Exam: NORMAL INSPECTION - Extremities Exam Extremities Exam: Full ROM, Normal Capillary Refill, Normal Inspection. absent : Joint Swelling, Pedal Edema - Back Exam Back Exam: NORMAL INSPECTION - Neurological Exam Neurological Exam: Alert, Awake, CN II-XII Intact, Normal Gait, Oriented x3 - Psychiatric Exam Psychiatric exam: Normal Affect, Normal Mood - Skin Skin Exam: Dry, Intact, Warm Additional comments: ECCHYMOSES Assessment and Plan - Assessment and Plan (Free Text) Assessment: COPD RESP FAILURE--IMPROVED S/P [place] ANEMIA Plan: CONTINUE CURRENT RX TAPER STEROIDS
[2017-09-13] MEDS: Azithromycin 500 MG in Sodium Chloride 0.9% 250 ML IVPB SCH (18:20)
--- NOTE | 2017-09-13 18:54 | CP.PCM.PN ---
Subjective - Date & Time of Evaluation Date of Evaluation: 09/13/17 Time of Evaluation: 18:35 - Subjective Subjective: Feeling better Objective - Vital Signs/Intake and Output Vital Signs (last 24 hours): Temp Pulse Resp BP Pulse Ox 97.3 F L 82 20 145/88 96 09/13/17 15:55 09/13/17 15:55 09/13/17 15:55 09/13/17 15:55 09/13/17 15:55 - Medications Medications: Current Medications Albuterol/Ipratropium (Duoneb 3 Mg/0.5 Mg (3 Ml) Ud) 3 ml INH RQ4 [facility] Last Admin: 09/13/17 15:23 Dose: Not Given Alprazolam (Xanax) 0.5 mg PO Q8@0600,1400,2200 [facility] Last Admin: 09/13/17 15:44 Dose: 0.5 mg Aspirin (Ecotrin) 81 mg PO DAILY [facility] Last Admin: 09/13/17 09:33 Dose: 81 mg Atorvastatin Calcium (Lipitor) 20 mg PO DAILY@2100 [facility] Last Admin: 09/12/17 22:04 Dose: 20 mg Calcium/Vitamin D (Oyster Shell Calcium/Vitamin D 500 Mg-200 Iu) 1 tab PO DAILY [facility] Last Admin: 09/13/17 09:33 Dose: 1 tab Clopidogrel Bisulfate (Plavix) 75 mg PO DAILY [facility] Last Admin: 09/13/17 09:33 Dose: 75 mg Cyanocobalamin (Vitamin B12 1000 Mcg/Ml Inj) 1,000 mcg IM Q2W [facility] Ergocalciferol (Drisdol 50,000 Intl Units Cap) 1 cap PO MO [facility] Ferrous Sulfate (Feosol) 325 mg PO BID [facility] Last Admin: 09/13/17 18:21 Dose: 325 mg Fluticasone Propionate (Flonase) 2 spr PRATIBHA HS PRN PRN Reason: Allergy symptoms Last Admin: 09/11/17 16:39 Dose: 2 spr Hydromorphone HCl (Dilaudid) 1 mg PO Q8 PRN PRN Reason: for pain 8-10 Last Admin: 09/13/17 00:04 Dose: 1 mg Azithromycin 500 mg/ Sodium (Chloride) 250 mls @ 250 mls/hr IVPB DAILY@1700 [facility] PRN Reason: Protocol Last Admin: 03/10/18 18:20 Dose: 250 mls/hr Losartan Potassium (Cozaar) 12.5 mg PO DAILY [facility] Last Admin: 09/13/17 09:34 Dose: 12.5 mg Metoprolol Succinate (Toprol Xl) 25 mg PO DAILY [facility] Last Admin: 09/13/17 09:34 Dose: 25 mg Multivitamins/Minerals (Therapeutic-M Tab) 1 tab PO DAILY [facility] Last Admin: 09/13/17 09:33 Dose: 1 tab Nicotine (Nicoderm Cq) 1 patch TD DAILY [facility] Last Admin: 09/13/17 09:34 Dose: 1 patch Nystatin (Nystatin Oral Susp) 5 ml PO QID [facility] Last Admin: 09/13/17 18:21 Dose: 5 ml Octreotide Acetate (Sandostatin) 100 mcg SC Q12 [facility] Last Admin: 09/13/17 09:32 Dose: 100 mcg Pantoprazole Sodium (Protonix Ec Tab) 40 mg PO DAILY [facility] Last Admin: 09/13/17 09:32 Dose: 40 mg Prednisone (Prednisone Tab) 10 mg PO DAILY [facility] Last Admin: 09/13/17 12:08 Dose: Not Given Fluticasone/Salmeterol (Advair Diskus 250/50) 1 puff IH Q12 [facility] Last Admin: 09/13/17 09:31 Dose: 1 puff Sodium Bicarbonate (Sodium Bicarbonate Tab) 650 mg PO Q12 [facility] Last Admin: 09/13/17 09:32 Dose: 650 mg Zolpidem Tartrate (Ambien) 5 mg PO HS [facility] Last Admin: 09/13/17 00:40 Dose: 5 mg - Labs Labs: 09/12/17 06:50 - Head Exam Head Exam: ATRAUMATIC - Eye Exam Eye Exam: Normal appearance - ENT Exam ENT Exam: Mucous Membranes Dry - Respiratory Exam Respiratory Exam: NORMAL BREATHING PATTERN - Cardiovascular Exam Cardiovascular Exam: +S1, +S2 - GI/Abdominal Exam GI & Abdominal Exam: Normal Bowel Sounds Assessment and Plan (1) Anemia Assessment & Plan: s/p groin bleeding with hematoma post cardiac cath and antiplatelet normal iron, b12, folate stores. s/p PRBC transfusion Status: Acute
--- NOTE | 2017-09-13 21:36 | US ---
EXAM: US Duplex Right Lower Extremity Arteries EXAM DATE/TIME: 09/13/2017 12:16 PM CLINICAL HISTORY: 67 years old, female; Signs and symptoms; Swelling; Upper leg; Right; Prior surgery; Surgery date: Post-operative (0-2 days); Surgery type: S/P cardiac cath; Additional info: S/P cath procedure R/O pseudoaneurysm TECHNIQUE: Real-time ultrasound scan of the arteries of the right lower extremity with 2-D sousa scale, color Doppler flow and spectral waveform analysis. COMPARISON: There are no prior studies for comparison. FINDINGS: There is expected color flow in the right common femoral artery. There is a triphasic in the common femoral artery above the puncture site.. There is a pseudoaneurysm at the puncture site. Neck of the aneurysm measures approximately 3 mm in diameter. Aneurysm measures approximately 2.5 x 2 x 1.7 cm. aneurysm is partially thrombosed. There is arterial flow in the pseudoaneurysm. There is triphasic waveform in the femoral artery inferior to the puncture site. IMPRESSION: Right groin pseudoaneurysm
[2017-09-14] MEDS: Albuterol-Ipratrop 3 mg / 0.5 (3 ml) UD INH SCH ×5 (05:15→19:17)
[2017-09-14] MEDS ORDERED: Thrombin Topical 5,000 Int Units Spray Kit TOP ONE (08:00)
[2017-09-14 08:20] LABS: BASO % 0.1 % (0.0-2.0); EOS # 0.1 K/uL (0.0-0.7); EOS % 0.6 % (0.0-4.0); HEMOGLOBIN 10.8 g/dL (12.0-16.0); LYMPH # 1.9 K/uL (1.0-4.3); MEAN CELL VOLUME 95.5 fl (81.0-99.0); MEAN CORPUSCULAR HEMOGLOBIN 31.3 pg (27.0-31.0); MEAN CORPUSCULAR HGB CONC 32.8 g/dL (33.0-37.0); MEAN PLATELET VOLUME 7.6 fl (7.2-11.7); MONO # 1.2 K/uL (0.0-0.8); MONO % 8.6 % (0.0-10.0); NEUT # 10.4 K/uL (1.8-7.0); NEUT % 76.7 % (50.0-75.0); NRBC % 0.1 % (0.0-0.0); RBC 3.45 Mil/uL (3.80-5.20); RED CELL DISTRIBUTION WIDTH 14.7 % (11.5-14.5); WHITE BLOOD COUNT 13.6 K/uL (4.8-10.8)
[2017-09-14] MEDS: Fluticasone-Salmeterol 250-50mcg Diskus IH SCH ×2 (08:30→21:22)
[2017-09-14] MEDS: Nystatin 100,000 Units/ml Oral Susp 5 ml UD PO SCH ×4 (08:31→21:23)
[2017-09-14] MEDS: Calcium-Vit D 500 mg-200 Units Tab UD PO SCH (08:31)
[2017-09-14] MEDS: Metoprolol Succinate 25 mg XL Tab PO SCH (08:32)
[2017-09-14] MEDS: Multivitamin With Minerals Tab PO SCH (08:32)
[2017-09-14] MEDS: Pantoprazole 40 mg EC Tab PO SCH (08:32)
[2017-09-14] MEDS: Azithromycin 500 MG in Sodium Chloride 0.9% 250 ML IVPB SCH (16:58)
--- NOTE | 2017-09-14 18:41 | CP.PCM.PN ---
Subjective - Date & Time of Evaluation Date of Evaluation: 09/14/17 Time of Evaluation: 08:15 - Subjective Subjective: Vascular surgery Note for Dr Daylin Savage, PGY-1 Pt S & E at bedside. Pt reports no pain in lower extremities. Is very anxious about having a procedure performed on her. Is OOBTC, was ambulating, tolerating diet. Objective - Vital Signs/Intake and Output Vital Signs (last 24 hours): Temp Pulse Resp BP Pulse Ox 97.9 F 81 20 117/61 99 09/14/17 16:45 09/14/17 16:45 09/14/17 16:45 09/14/17 16:45 09/14/17 16:45 - Medications Medications: Current Medications Albuterol/Ipratropium (Duoneb 3 Mg/0.5 Mg (3 Ml) Ud) 3 ml INH RQ4 [facility] Last Admin: 09/14/17 15:28 Dose: 3 ml Alprazolam (Xanax) 0.5 mg PO Q8@0600,1400,2200 [facility] Last Admin: 09/14/17 13:26 Dose: 0.5 mg Aspirin (Ecotrin) 81 mg PO DAILY [facility] Last Admin: 09/14/17 08:31 Dose: 81 mg Atorvastatin Calcium (Lipitor) 20 mg PO DAILY@2100 [facility] Last Admin: 09/13/17 21:45 Dose: 20 mg Calcium/Vitamin D (Oyster Shell Calcium/Vitamin D 500 Mg-200 Iu) 1 tab PO DAILY [facility] Last Admin: 09/14/17 08:31 Dose: 1 tab Clopidogrel Bisulfate (Plavix) 75 mg PO DAILY [facility] Last Admin: 09/14/17 08:31 Dose: 75 mg Cyanocobalamin (Vitamin B12 1000 Mcg/Ml Inj) 1,000 mcg IM Q2W [facility] Ergocalciferol (Drisdol 50,000 Intl Units Cap) 1 cap PO MO [facility] Ferrous Sulfate (Feosol) 325 mg PO BID [facility] Last Admin: 09/14/17 16:59 Dose: 325 mg Fluticasone Propionate (Flonase) 2 spr PRATIBHA HS PRN PRN Reason: Allergy symptoms Last Admin: 09/11/17 16:39 Dose: 2 spr Hydromorphone HCl (Dilaudid) 1 mg PO Q8 PRN PRN Reason: for pain 8-10 Last Admin: 09/14/17 01:41 Dose: 1 mg Azithromycin 500 mg/ Sodium (Chloride) 250 mls @ 250 mls/hr IVPB DAILY@2100 [facility] PRN Reason: Protocol Losartan Potassium (Cozaar) 12.5 mg PO DAILY [facility] Last Admin: 09/14/17 08:30 Dose: 12.5 mg Metoprolol Succinate (Toprol Xl) 25 mg PO DAILY [facility] Last Admin: 09/14/17 08:32 Dose: 25 mg Multivitamins/Minerals (Therapeutic-M Tab) 1 tab PO DAILY [facility] Last Admin: 09/14/17 08:32 Dose: 1 tab Nicotine (Nicoderm Cq) 1 patch TD DAILY [facility] Last Admin: 09/14/17 08:31 Dose: 1 patch Nystatin (Nystatin Oral Susp) 5 ml PO QID [facility] Last Admin: 09/14/17 16:59 Dose: 5 ml Octreotide Acetate (Sandostatin) 100 mcg SC Q12 [facility] Last Admin: 09/14/17 08:32 Dose: 100 mcg Pantoprazole Sodium (Protonix Ec Tab) 40 mg PO DAILY [facility] Last Admin: 09/14/17 08:32 Dose: 40 mg Prednisone (Prednisone Tab) 10 mg PO DAILY [facility] Last Admin: 09/14/17 08:31 Dose: 10 mg Fluticasone/Salmeterol (Advair Diskus 250/50) 1 puff IH Q12 [facility] Last Admin: 09/14/17 08:30 Dose: 1 puff Sodium Bicarbonate (Sodium Bicarbonate Tab) 650 mg PO Q12 [facility] Last Admin: 09/14/17 08:32 Dose: 650 mg Zolpidem Tartrate (Ambien) 5 mg PO HS [facility] Last Admin: 09/13/17 23:58 Dose: 5 mg - Labs Labs: 09/14/17 06:30 - Constitutional Appears: Non-toxic, No Acute Distress - Head Exam Head Exam: ATRAUMATIC, NORMAL INSPECTION, NORMOCEPHALIC - Eye Exam Eye Exam: EOMI, Normal appearance - ENT Exam ENT Exam: Mucous Membranes Moist, Normal Exam - Neck Exam Neck Exam: Full ROM, Normal Inspection - Respiratory Exam Respiratory Exam: NORMAL BREATHING PATTERN - Cardiovascular Exam Cardiovascular Exam: REGULAR RHYTHM, +S1, +S2 - GI/Abdominal Exam GI & Abdominal Exam: Soft. absent: Distended, Firm, Guarding, Rigid, Tenderness - Extremities Exam Extremities Exam: Normal Inspection. absent: Tenderness - Neurological Exam Neurological Exam: Alert, Awake, CN II-XII Intact, Oriented x3 - Psychiatric Exam Psychiatric exam: Normal Affect, Normal Mood - Skin Skin Exam: Dry, Intact, Warm. absent: Normal Color (pubic area with diffuse ecchymosis, multiple ecchymoses over b/l upper extremities) Assessment and Plan - Assessment and Plan (Free Text) Assessment: 67 F with right groin hematoma and pseudoaneurysm s/p cardiac cath Plan: U/S finding of Right femoral pseudoaneurysm Plan for thrombin injection therapy in [place] tomorrow Consent in chart NPO pMN Further mgmt as per primary team ALBERT attending Janette, PGY-1
[2017-09-14] MEDS ORDERED: Azithromycin 500 MG in Sodium Chloride 0.9% 250 ML IVPB SCH (21:00)
--- NOTE | 2017-09-14 23:55 | CP.PCM.PN ---
Subjective - Date & Time of Evaluation Date of Evaluation: 09/14/17 Time of Evaluation: 18:30 Objective - Vital Signs/Intake and Output Vital Signs (last 24 hours): Temp Pulse Resp BP Pulse Ox 97.7 F 84 20 142/69 100 09/14/17 20:05 09/14/17 20:05 09/14/17 20:05 09/14/17 20:05 09/14/17 20:05 - Medications Medications: Current Medications Albuterol/Ipratropium (Duoneb 3 Mg/0.5 Mg (3 Ml) Ud) 3 ml INH RQ4 [facility] Last Admin: 09/14/17 19:17 Dose: 3 ml Alprazolam (Xanax) 0.5 mg PO Q8@0600,1400,2200 [facility] Last Admin: 09/14/17 21:27 Dose: 0.5 mg Aspirin (Ecotrin) 81 mg PO DAILY [facility] Last Admin: 09/14/17 08:31 Dose: 81 mg Atorvastatin Calcium (Lipitor) 20 mg PO DAILY@2100 [facility] Last Admin: 09/14/17 21:23 Dose: 20 mg Calcium/Vitamin D (Oyster Shell Calcium/Vitamin D 500 Mg-200 Iu) 1 tab PO DAILY [facility] Last Admin: 09/14/17 08:31 Dose: 1 tab Clopidogrel Bisulfate (Plavix) 75 mg PO DAILY [facility] Last Admin: 09/14/17 08:31 Dose: 75 mg Cyanocobalamin (Vitamin B12 1000 Mcg/Ml Inj) 1,000 mcg IM Q2W [facility] Ergocalciferol (Drisdol 50,000 Intl Units Cap) 1 cap PO MO [facility] Ferrous Sulfate (Feosol) 325 mg PO BID [facility] Last Admin: 09/14/17 16:59 Dose: 325 mg Fluticasone Propionate (Flonase) 2 spr PRATIBHA HS PRN PRN Reason: Allergy symptoms Last Admin: 09/11/17 16:39 Dose: 2 spr Hydromorphone HCl (Dilaudid) 1 mg PO Q8 PRN PRN Reason: for pain 8-10 Last Admin: 09/14/17 01:41 Dose: 1 mg Azithromycin 500 mg/ Sodium (Chloride) 250 mls @ 250 mls/hr IVPB DAILY@2100 [facility] PRN Reason: Protocol Last Admin: 09/14/17 21:19 Dose: 250 mls/hr Losartan Potassium (Cozaar) 12.5 mg PO DAILY [facility] Last Admin: 09/14/17 08:30 Dose: 12.5 mg Metoprolol Succinate (Toprol Xl) 25 mg PO DAILY [facility] Last Admin: 09/14/17 08:32 Dose: 25 mg Multivitamins/Minerals (Therapeutic-M Tab) 1 tab PO DAILY [facility] Last Admin: 09/14/17 08:32 Dose: 1 tab Nicotine (Nicoderm Cq) 1 patch TD DAILY [facility] Last Admin: 09/14/17 08:31 Dose: 1 patch Nystatin (Nystatin Oral Susp) 5 ml PO QID [facility] Last Admin: 09/14/17 21:23 Dose: 5 ml Octreotide Acetate (Sandostatin) 100 mcg SC Q12 [facility] Last Admin: 09/14/17 21:27 Dose: 100 mcg Pantoprazole Sodium (Protonix Ec Tab) 40 mg PO DAILY [facility] Last Admin: 09/14/17 08:32 Dose: 40 mg Prednisone (Prednisone Tab) 10 mg PO DAILY [facility] Last Admin: 09/14/17 08:31 Dose: 10 mg Fluticasone/Salmeterol (Advair Diskus 250/50) 1 puff IH Q12 [facility] Last Admin: 09/14/17 21:22 Dose: 1 puff Sodium Bicarbonate (Sodium Bicarbonate Tab) 650 mg PO Q12 [facility] Last Admin: 09/14/17 21:25 Dose: 650 mg Zolpidem Tartrate (Ambien) 5 mg PO HS [facility] Last Admin: 09/14/17 22:46 Dose: 5 mg - Labs Labs: 09/14/17 06:30
[2017-09-15] MEDS: Albuterol-Ipratrop 3 mg / 0.5 (3 ml) UD INH SCH ×7 (00:04→23:24)
[2017-09-15] MEDS: Ergocalciferol 50,000 Intl Units Cap PO SCH ×2 (01:16→01:36)
[2017-09-15 06:52] LABS: PROTHROMBIN TIME 10.6 Seconds (9.8-13.1)
[2017-09-15 06:54] LABS: HEMOGLOBIN 10.8 g/dL (12.0-16.0); MEAN CELL VOLUME 95.8 fl (81.0-99.0); MEAN CORPUSCULAR HGB CONC 33.4 g/dL (33.0-37.0); RBC 3.36 Mil/uL (3.80-5.20)
[2017-09-15 06:58] LABS: ALB/GLOB RATIO 1.1 (1.0-2.1); ALBUMIN 2.8 g/dL (3.5-5.0); ALT/SGPT 48 U/L (9-52); AST/SGOT 33 U/L (14-36); BLOOD UREA NITROGEN 11 mg/dl (7-17); CALCIUM 8.9 mg/dL (8.4-10.2); GFR AFRICAN-AMERICAN > 60; GFR NON-AFRICAN AMERICAN > 60
[2017-09-15] MEDS: Calcium-Vit D 500 mg-200 Units Tab UD PO SCH (08:24)
[2017-09-15] MEDS: Nystatin 100,000 Units/ml Oral Susp 5 ml UD PO SCH ×4 (08:24→21:38)
[2017-09-15] MEDS: Pantoprazole 40 mg EC Tab PO SCH (08:25)
[2017-09-15] MEDS: Multivitamin With Minerals Tab PO SCH ×2 (08:25→21:43)
--- NOTE | 2017-09-15 08:27 | CP.PCM.PN ---
Subjective - Date & Time of Evaluation Date of Evaluation: 09/15/17 Time of Evaluation: 08:27 - Subjective Subjective: SCHEDULED FOR VASCULAR SURGERY TODAY DENIES CHEST PAINS SOB IMPROVED Objective - Vital Signs/Intake and Output Vital Signs (last 24 hours): Temp Pulse Resp BP Pulse Ox 97.2 F L 72 18 116/56 L 98 09/15/17 07:46 09/15/17 07:46 09/15/17 07:46 09/15/17 07:46 09/15/17 07:46 - Medications Medications: Current Medications Albuterol/Ipratropium (Duoneb 3 Mg/0.5 Mg (3 Ml) Ud) 3 ml INH RQ4 [facility] Last Admin: 09/15/17 07:00 Dose: 3 ml Alprazolam (Xanax) 0.5 mg PO Q8@0600,1400,2200 [facility] Last Admin: 09/15/17 06:49 Dose: 0.5 mg Aspirin (Ecotrin) 81 mg PO DAILY [facility] Last Admin: 09/14/17 08:31 Dose: 81 mg Atorvastatin Calcium (Lipitor) 20 mg PO DAILY@2100 [facility] Last Admin: 09/14/17 21:23 Dose: 20 mg Calcium/Vitamin D (Oyster Shell Calcium/Vitamin D 500 Mg-200 Iu) 1 tab PO DAILY [facility] Last Admin: 09/14/17 08:31 Dose: 1 tab Clopidogrel Bisulfate (Plavix) 75 mg PO DAILY [facility] Last Admin: 09/14/17 08:31 Dose: 75 mg Cyanocobalamin (Vitamin B12 1000 Mcg/Ml Inj) 1,000 mcg IM Q2W [facility] Ergocalciferol (Drisdol 50,000 Intl Units Cap) 1 cap PO MO [facility] Last Admin: 09/15/17 01:36 Dose: Not Given Ferrous Sulfate (Feosol) 325 mg PO BID [facility] Last Admin: 09/14/17 16:59 Dose: 325 mg Fluticasone Propionate (Flonase) 2 spr PRATIBHA HS PRN PRN Reason: Allergy symptoms Last Admin: 09/11/17 16:39 Dose: 2 spr Hydromorphone HCl (Dilaudid) 1 mg PO Q8 PRN PRN Reason: for pain 8-10 Last Admin: 09/15/17 01:04 Dose: 1 mg Azithromycin 500 mg/ Sodium (Chloride) 250 mls @ 250 mls/hr IVPB DAILY@2100 [facility] PRN Reason: Protocol Last Admin: 09/14/17 21:19 Dose: 250 mls/hr Losartan Potassium (Cozaar) 12.5 mg PO DAILY [facility] Last Admin: 09/14/17 08:30 Dose: 12.5 mg Metoprolol Succinate (Toprol Xl) 25 mg PO DAILY [facility] Last Admin: 09/14/17 08:32 Dose: 25 mg Multivitamins/Minerals (Therapeutic-M Tab) 1 tab PO DAILY [facility] Last Admin: 09/14/17 08:32 Dose: 1 tab Nicotine (Nicoderm Cq) 1 patch TD DAILY [facility] Last Admin: 09/14/17 08:31 Dose: 1 patch Nystatin (Nystatin Oral Susp) 5 ml PO QID [facility] Last Admin: 09/14/17 21:23 Dose: 5 ml Octreotide Acetate (Sandostatin) 100 mcg SC Q12 [facility] Last Admin: 09/14/17 21:27 Dose: 100 mcg Pantoprazole Sodium (Protonix Ec Tab) 40 mg PO DAILY [facility] Last Admin: 09/14/17 08:32 Dose: 40 mg Prednisone (Prednisone Tab) 10 mg PO DAILY [facility] Last Admin: 09/14/17 08:31 Dose: 10 mg Fluticasone/Salmeterol (Advair Diskus 250/50) 1 puff IH Q12 [facility] Last Admin: 09/14/17 21:22 Dose: 1 puff Sodium Bicarbonate (Sodium Bicarbonate Tab) 650 mg PO Q12 [facility] Last Admin: 09/14/17 21:25 Dose: 650 mg Zolpidem Tartrate (Ambien) 5 mg PO HS [facility] Last Admin: 09/14/17 22:46 Dose: 5 mg - Labs Labs: 09/15/17 05:45 09/15/17 05:45 PT 10.6 Seconds (9.8-13.1) 09/15/17 05:45 INR 1.0 (0.9-1.2) 09/15/17 05:45 - Constitutional Appears: No Acute Distress - Head Exam Head Exam: ATRAUMATIC, NORMAL INSPECTION, NORMOCEPHALIC - Eye Exam Eye Exam: EOMI, Normal appearance, PERRL Pupil Exam: NORMAL ACCOMODATION, PERRL - ENT Exam ENT Exam: Mucous Membranes Moist, Normal Exam - Neck Exam Neck Exam: Full ROM, Normal Inspection. absent: Lymphadenopathy - Respiratory Exam Respiratory Exam: Clear to Ausculation Bilateral, Prolonged Expiratory Phase, NORMAL BREATHING PATTERN - Cardiovascular Exam Cardiovascular Exam: REGULAR RHYTHM, +S1, +S2. absent: Murmur - GI/Abdominal Exam GI & Abdominal Exam: Soft, Normal Bowel Sounds. absent: Tenderness - Rectal Exam Rectal Exam: NORMAL INSPECTION - Extremities Exam Extremities Exam: Full ROM, Normal Capillary Refill, Normal Inspection, Pedal Edema. absent: Joint Swelling - Back Exam Back Exam: NORMAL INSPECTION - Neurological Exam Neurological Exam: Alert, Awake, CN II-XII Intact, Normal Gait, Oriented x3 - Psychiatric Exam Psychiatric exam: Anxious, Normal Affect, Normal Mood - Skin Skin Exam: Dry, Intact, Normal Color, Warm Assessment and Plan - Assessment and Plan (Free Text) Assessment: COPD--IMPROVING ANEMIA S/P NC Plan: CONTINUE CURRENT RX WILL FOLLOW WITH YOU
[2017-09-15] MEDS: Fluticasone-Salmeterol 250-50mcg Diskus IH SCH ×2 (08:33→21:25)
[2017-09-15] MEDS: Metoprolol Succinate 25 mg XL Tab PO SCH (08:34)
--- NOTE | 2017-09-15 08:37 | CP.PCM.CON ---
History of Present Illness - History of Present Illness History of Present Illness: THE PATIENT IS A 67 YEAR OLD FEMALE WITH A HISTORY OF CAD, HYPERTENSION, COPD FROM CIGARETTE SMOKING, ANEMIA AND ANXIETY. SHE WAS ON [facility] TWO WEEKS AGO AND ON 09/03/17 HAD AN ACUTE STEMI IN THE ANTERIOR WALL AND WAS TREATED WITH ASPIRIN, CLOPIDOGREL, LOVENOX AND BRILINTA AND SHE WAS TRANSFERRED FOR AN URGENT CARDIAC CATH. DR VANG DID THE CARDIAC CATH AND SHE APPARENTLY AUTOLYSED THE CLOT AND DIDN'T NEED A STENT OR CABGS. SHE WAS SENT BACK TO [facility] AND DID WELL FOR THE REST OF THAT ADMISSION AND WAS DISCHARGED TO TCU ON 09/08/17 AND HAS REMAINED CHEST PAIN FREE. LAST WEEK SHE WAS FOUND TO BE ANEMIC AND WAS TRANSFUSED. 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 Past Patient History - Past Medical History & Family History Past Medical History?: Yes - Past Social History Smoking Status: Light Smoker < 10 Cigarettes Daily - CARDIAC Hx Cardiac Disorders: Yes Hx Congestive Heart Failure: Yes Hx Hypertension: Yes - PULMONARY Hx Respiratory Disorders: Yes Hx Chronic Obstructive Pulmonary Disease (COPD): Yes Hx Emphysema: Yes - NEUROLOGICAL Hx Neurological Disorder: Yes Other/Comment: FIBROMYALGIA - HEENT Hx HEENT Problems: No - RENAL Hx Chronic Kidney Disease: No - ENDOCRINE/METABOLIC Hx Endocrine Disorders: No - HEMATOLOGICAL/ONCOLOGICAL Hx AIDS: No Hx Human Immunodeficiency Virus (HIV): No - INTEGUMENTARY Hx Dermatological Problems: No - MUSCULOSKELETAL/RHEUMATOLOGICAL Hx Falls: No - GASTROINTESTINAL Hx Gastrointestinal Disorders: Yes Hx Ileostomy: Yes - GENITOURINARY/GYNECOLOGICAL Hx Genitourinary Disorders: No - PSYCHIATRIC Hx Substance Use: No - SURGICAL HISTORY Hx Surgeries: Yes Hx Cholecystectomy: Yes Hx Herniorrhaphy: Yes Hx Hysterectomy: Yes - ANESTHESIA Hx Anesthesia: Yes Hx Anesthesia Reactions: No Hx Malignant Hyperthermia: No Meds Allergies/Adverse Reactions: Allergies Allergy/AdvReac Type Severity Reaction Status Date / Time Sulfa (Sulfonamide Allergy crystallized Verified 09/15/17 12:38 Antibiotics) kidneys - Medications Medications: Current Medications Albuterol/Ipratropium (Duoneb 3 Mg/0.5 Mg (3 Ml) Ud) 3 ml INH RQ4 [facility] Last Admin: 09/15/17 07:00 Dose: 3 ml Alprazolam (Xanax) 0.5 mg PO Q8@0600,1400,2200 [facility] Last Admin: 09/15/17 06:49 Dose: 0.5 mg Aspirin (Ecotrin) 81 mg PO DAILY [facility] Last Admin: 09/15/17 08:24 Dose: Not Given Atorvastatin Calcium (Lipitor) 20 mg PO DAILY@2100 [facility] Last Admin: 09/14/17 21:23 Dose: 20 mg Calcium/Vitamin D (Oyster Shell Calcium/Vitamin D 500 Mg-200 Iu) 1 tab PO DAILY [facility] Last Admin: 09/15/17 08:24 Dose: Not Given Clopidogrel Bisulfate (Plavix) 75 mg PO DAILY [facility] Last Admin: 09/15/17 08:24 Dose: Not Given Cyanocobalamin (Vitamin B12 1000 Mcg/Ml Inj) 1,000 mcg IM Q2W [facility] Ergocalciferol (Drisdol 50,000 Intl Units Cap) 1 cap PO MO [facility] Last Admin: 09/15/17 01:36 Dose: Not Given Ferrous Sulfate (Feosol) 325 mg PO BID [facility] Last Admin: 09/15/17 08:24 Dose: Not Given Fluticasone Propionate (Flonase) 2 spr PRATIBHA HS PRN PRN Reason: Allergy symptoms Last Admin: 09/11/17 16:39 Dose: 2 spr Hydromorphone HCl (Dilaudid) 1 mg PO Q8 PRN PRN Reason: for pain 8-10 Last Admin: 09/15/17 01:04 Dose: 1 mg Losartan Potassium (Cozaar) 12.5 mg PO DAILY [facility] Last Admin: 09/15/17 08:33 Dose: Not Given Metoprolol Succinate (Toprol Xl) 25 mg PO DAILY [facility] Last Admin: 09/15/17 08:34 Dose: 25 mg Multivitamins/Minerals (Therapeutic-M Tab) 1 tab PO DAILY [facility] Last Admin: 09/15/17 08:25 Dose: Not Given Nicotine (Nicoderm Cq) 1 patch TD DAILY [facility] Last Admin: 09/15/17 08:33 Dose: 1 patch Nystatin (Nystatin Oral Susp) 5 ml PO QID [facility] Last Admin: 09/15/17 08:24 Dose: Not Given Octreotide Acetate (Sandostatin) 100 mcg SC Q12 [facility] Last Admin: 09/15/17 08:33 Dose: 100 mcg Pantoprazole Sodium (Protonix Ec Tab) 40 mg PO DAILY [facility] Last Admin: 09/15/17 08:25 Dose: Not Given Prednisone (Prednisone Tab) 10 mg PO DAILY [facility] Last Admin: 09/15/17 08:24 Dose: Not Given Fluticasone/Salmeterol (Advair Diskus 250/50) 1 puff IH Q12 [facility] Last Admin: 09/15/17 08:33 Dose: 1 puff Sodium Bicarbonate (Sodium Bicarbonate Tab) 650 mg PO Q12 [facility] Last Admin: 09/15/17 08:25 Dose: Not Given Zolpidem Tartrate (Ambien) 5 mg PO HS [facility] Last Admin: 09/14/17 22:46 Dose: 5 mg Physical Exam - Respiratory Exam Respiratory Exam: Clear to Auscultation Bilateral - Cardiovascular Exam Cardiovascular Exam: REGULAR RHYTHM, +S1, +S2 - Extremities Exam Additional comments: RIGHT FEMORAL AREA HEMATOMA Results - Vital Signs Recent Vital Signs: Last Vital Signs Temp 97.2 F L 09/15/17 07:46 Pulse 72 09/15/17 08:34 Resp 18 09/15/17 07:46 BP 116/56 L 09/15/17 08:34 Pulse Ox 98 09/15/17 07:46 - Labs Result Diagrams: 09/22/17 07:50 09/22/17 07:50 Labs: Laboratory Results - last 24 hr 09/15/17 09/15/17 09/15/17 05:45 05:45 05:45 WBC 15.0 H RBC 3.36 L Hgb 10.8 L Hct 32.2 L MCV 95.8 MCH 32.0 H MCHC 33.4 RDW 15.0 H Plt Count 238 PT 10.6 INR 1.0 Sodium 124 L Potassium 3.8 Chloride 87 L Carbon Dioxide 26 Anion Gap 15 BUN 11 Creatinine 0.8 Est GFR ( Amer) > 60 Est GFR (Non-Af Amer) > 60 Random Glucose 88 Calcium 8.9 Total Bilirubin 1.7 H AST 33 ALT 48 Alkaline Phosphatase 55 Total Protein 5.5 L Albumin 2.8 L Globulin 2.7 Albumin/Globulin Ratio 1.1 Assessment & Plan - Assessment and Plan (Free Text) Assessment: CAD WITH RECENT AWMI AND CARDIAC CATH HYPERTENSION COPD RIGHT FEMORAL AREA HEMATOMA AND PSEUDOANEURYSM Plan: FOR THROMBIN INJECTION TODAY
--- NOTE | 2017-09-15 13:31 | PCM.SURG1 ---
Surgeon's Initial Post Op Note - Surgeon's Notes Surgeon: Julianne Fluid Jet Cutter Operator: Ace Pre-Operative Diagnosis: Right Common Femoral Artery Pseudoanerysm Operative Findings: Right Common Femoral Artery Pseudoanerysm Post-Operative Diagnosis: Right Common Femoral Artery Pseudoanerysm Operation Performed: Injection of thrombin into Right Common Femoral Artery Pseudoanerysm Specimen/Specimens Removed: n/a Estimated Blood Loss: EBL {In ML}: 0 Date of Surgery/Procedure: 09/15/17 Time of Surgery/Procedure: 12:00
--- NOTE | 2017-09-15 21:44 | CP.PCM.PN ---
Subjective - Date & Time of Evaluation Date of Evaluation: 09/15/17 Time of Evaluation: 19:45 - Subjective Subjective: No complaints, s/p pseudo aneurysm injection Objective - Vital Signs/Intake and Output Vital Signs (last 24 hours): Temp Pulse Resp BP Pulse Ox 96.8 F L 76 20 129/65 100 09/15/17 19:38 09/15/17 19:38 09/15/17 19:38 09/15/17 19:38 09/15/17 19:38 - Medications Medications: Current Medications Albuterol/Ipratropium (Duoneb 3 Mg/0.5 Mg (3 Ml) Ud) 3 ml INH RQ4 [facility] Last Admin: 09/15/17 19:12 Dose: 3 ml Alprazolam (Xanax) 0.5 mg PO Q8@0200,1000,1800 [facility] Last Admin: 09/15/17 18:38 Dose: 0.5 mg Aspirin (Ecotrin) 81 mg PO DAILY [facility] Last Admin: 09/15/17 08:24 Dose: Not Given Atorvastatin Calcium (Lipitor) 20 mg PO DAILY@2100 [facility] Last Admin: 09/15/17 21:38 Dose: 20 mg Calcium/Vitamin D (Oyster Shell Calcium/Vitamin D 500 Mg-200 Iu) 1 tab PO DAILY [facility] Last Admin: 09/15/17 08:24 Dose: Not Given Clopidogrel Bisulfate (Plavix) 75 mg PO DAILY [facility] Last Admin: 09/15/17 08:24 Dose: Not Given Cyanocobalamin (Vitamin B12 1000 Mcg/Ml Inj) 1,000 mcg IM Q2W [facility] Ergocalciferol (Drisdol 50,000 Intl Units Cap) 1 cap PO MO [facility] Last Admin: 09/15/17 01:36 Dose: Not Given Ferrous Sulfate (Feosol) 325 mg PO BID [facility] Last Admin: 09/15/17 17:17 Dose: 325 mg Fluticasone Propionate (Flonase) 2 spr PRTAIBHA HS PRN PRN Reason: Allergy symptoms Last Admin: 09/11/17 16:39 Dose: 2 spr Hydromorphone HCl (Dilaudid) 1 mg PO Q8 PRN PRN Reason: for pain 8-10 Last Admin: 09/15/17 01:04 Dose: 1 mg Losartan Potassium (Cozaar) 12.5 mg PO DAILY [facility] Last Admin: 09/15/17 08:33 Dose: Not Given Metoprolol Succinate (Toprol Xl) 25 mg PO DAILY [facility] Last Admin: 09/15/17 08:34 Dose: 25 mg Multivitamins/Minerals (Therapeutic-M Tab) 1 tab PO DAILY [facility] Last Admin: 09/15/17 08:25 Dose: Not Given Nicotine (Nicoderm Cq) 1 patch TD DAILY [facility] Last Admin: 09/15/17 08:33 Dose: 1 patch Nystatin (Nystatin Oral Susp) 5 ml PO QID [facility] Last Admin: 09/15/17 21:38 Dose: 5 ml Octreotide Acetate (Sandostatin) 100 mcg SC Q12 [facility] Last Admin: 09/15/17 08:33 Dose: 100 mcg Pantoprazole Sodium (Protonix Ec Tab) 40 mg PO DAILY [facility] Last Admin: 09/15/17 08:25 Dose: Not Given Prednisone (Prednisone Tab) 10 mg PO DAILY [facility] Last Admin: 09/15/17 08:24 Dose: Not Given Fluticasone/Salmeterol (Advair Diskus 250/50) 1 puff IH Q12 [facility] Last Admin: 09/15/17 21:25 Dose: 1 puff Sodium Bicarbonate (Sodium Bicarbonate Tab) 650 mg PO Q12 [facility] Last Admin: 09/15/17 08:25 Dose: Not Given Zolpidem Tartrate (Ambien) 5 mg PO HS [facility] Last Admin: 09/14/17 22:46 Dose: 5 mg - Labs Labs: 09/15/17 05:45 09/15/17 05:45 PT 10.6 Seconds (9.8-13.1) 09/15/17 05:45 INR 1.0 (0.9-1.2) 09/15/17 05:45 - Head Exam Head Exam: ATRAUMATIC - Eye Exam Eye Exam: Normal appearance - ENT Exam ENT Exam: Mucous Membranes Dry - Respiratory Exam Respiratory Exam: NORMAL BREATHING PATTERN - Cardiovascular Exam Cardiovascular Exam: +S1, +S2 Assessment and Plan (1) Anemia Assessment & Plan: chronic disease, hematoma bleeding s/p pseudo aneurysm injection s/p PRBC transfusion Status: Acute
--- NOTE | 2017-09-15 22:28 | CP.PCM.PN ---
Subjective - Date & Time of Evaluation Date of Evaluation: 09/15/17 - Subjective Subjective: feels much better today Objective - Vital Signs/Intake and Output Vital Signs (last 24 hours): Temp Pulse Resp BP Pulse Ox 96.8 F L 76 20 129/65 100 09/15/17 19:38 09/15/17 19:38 09/15/17 19:38 09/15/17 19:38 09/15/17 19:38 - Medications Medications: Current Medications Albuterol/Ipratropium (Duoneb 3 Mg/0.5 Mg (3 Ml) Ud) 3 ml INH RQ4 [facility] Last Admin: 09/15/17 19:12 Dose: 3 ml Alprazolam (Xanax) 0.5 mg PO Q8@0200,1000,1800 [facility] Last Admin: 09/15/17 18:38 Dose: 0.5 mg Aspirin (Ecotrin) 81 mg PO DAILY [facility] Last Admin: 09/15/17 08:24 Dose: Not Given Atorvastatin Calcium (Lipitor) 20 mg PO DAILY@2100 [facility] Last Admin: 09/15/17 21:38 Dose: 20 mg Calcium/Vitamin D (Oyster Shell Calcium/Vitamin D 500 Mg-200 Iu) 1 tab PO DAILY [facility] Last Admin: 09/15/17 08:24 Dose: Not Given Clopidogrel Bisulfate (Plavix) 75 mg PO DAILY [facility] Last Admin: 09/15/17 08:24 Dose: Not Given Cyanocobalamin (Vitamin B12 1000 Mcg/Ml Inj) 1,000 mcg IM Q2W [facility] Ergocalciferol (Drisdol 50,000 Intl Units Cap) 1 cap PO MO [facility] Last Admin: 09/15/17 01:36 Dose: Not Given Ferrous Sulfate (Feosol) 325 mg PO BID [facility] Last Admin: 09/15/17 17:17 Dose: 325 mg Fluticasone Propionate (Flonase) 2 spr PRATIBHA HS PRN PRN Reason: Allergy symptoms Last Admin: 09/11/17 16:39 Dose: 2 spr Hydromorphone HCl (Dilaudid) 1 mg PO Q8 PRN PRN Reason: for pain 8-10 Last Admin: 09/15/17 01:04 Dose: 1 mg Losartan Potassium (Cozaar) 12.5 mg PO DAILY [facility] Last Admin: 09/15/17 08:33 Dose: Not Given Metoprolol Succinate (Toprol Xl) 25 mg PO DAILY [facility] Last Admin: 09/15/17 08:34 Dose: 25 mg Multivitamins/Minerals (Therapeutic-M Tab) 1 tab PO DAILY [facility] Last Admin: 09/15/17 08:25 Dose: Not Given Nicotine (Nicoderm Cq) 1 patch TD DAILY [facility] Last Admin: 09/15/17 08:33 Dose: 1 patch Nystatin (Nystatin Oral Susp) 5 ml PO QID [facility] Last Admin: 09/15/17 21:38 Dose: 5 ml Octreotide Acetate (Sandostatin) 100 mcg SC Q12 [facility] Last Admin: 09/15/17 21:42 Dose: 100 mcg Pantoprazole Sodium (Protonix Ec Tab) 40 mg PO DAILY [facility] Last Admin: 09/15/17 08:25 Dose: Not Given Prednisone (Prednisone Tab) 10 mg PO DAILY [facility] Last Admin: 09/15/17 08:24 Dose: Not Given Fluticasone/Salmeterol (Advair Diskus 250/50) 1 puff IH Q12 [facility] Last Admin: 09/15/17 21:25 Dose: 1 puff Sodium Bicarbonate (Sodium Bicarbonate Tab) 650 mg PO Q12 [facility] Last Admin: 09/15/17 21:43 Dose: 650 mg Zolpidem Tartrate (Ambien) 5 mg PO HS [facility] Last Admin: 09/14/17 22:46 Dose: 5 mg - Labs Labs: 09/15/17 05:45 09/15/17 05:45 PT 10.6 Seconds (9.8-13.1) 09/15/17 05:45 INR 1.0 (0.9-1.2) 09/15/17 05:45 - Constitutional Appears: Well, Non-toxic - Head Exam Head Exam: ATRAUMATIC - Eye Exam Eye Exam: EOMI, PERRL - ENT Exam ENT Exam: Mucous Membranes Moist - Neck Exam Neck Exam: Full ROM - Respiratory Exam Respiratory Exam: Clear to Ausculation Bilateral - Cardiovascular Exam Cardiovascular Exam: REGULAR RHYTHM - GI/Abdominal Exam GI & Abdominal Exam: Normal Bowel Sounds Additional comments: R colostomy with output - Extremities Exam Extremities Exam: Full ROM Additional comments: R thigh extensive ecchymosis non tender, melissa Upper ext ecchymosis - Neurological Exam Neurological Exam: Alert, CN II-XII Intact, Oriented x3 - Psychiatric Exam Psychiatric exam: Normal Affect - Skin Skin Exam: Dry Assessment and Plan - Assessment and Plan (Free Text) Assessment: 67 y/o female with AMI s/p cath with hematoma R thigh, improved, continue with current medical management, monitor CBC chronic hyponatremia, monitor closely
[2017-09-16] MEDS: Albuterol-Ipratrop 3 mg / 0.5 (3 ml) UD INH SCH ×6 (04:34→23:48)
[2017-09-16 06:16] LABS: HEMOGLOBIN 10.6 g/dL (12.0-16.0); MEAN CELL VOLUME 95.1 fl (81.0-99.0); MEAN CORPUSCULAR HEMOGLOBIN 32.1 pg (27.0-31.0); MEAN CORPUSCULAR HGB CONC 33.8 g/dL (33.0-37.0); RBC 3.29 Mil/uL (3.80-5.20); RED CELL DISTRIBUTION WIDTH 14.7 % (11.5-14.5); WHITE BLOOD COUNT 13.5 K/uL (4.8-10.8)
[2017-09-16 06:33] LABS: BLOOD UREA NITROGEN 9 mg/dl (7-17); CALCIUM 8.8 mg/dL (8.4-10.2); GFR AFRICAN-AMERICAN > 60; GFR NON-AFRICAN AMERICAN > 60
--- NOTE | 2017-09-16 08:33 | CP.PCM.PN ---
Subjective - Date & Time of Evaluation Date of Evaluation: 09/16/17 Time of Evaluation: 08:33 - Subjective Subjective: CLINICALLY CONTINUES TO IMPROVE SOB LESS NO CHEST PAINS/COUGH Objective - Vital Signs/Intake and Output Vital Signs (last 24 hours): Temp Pulse Resp BP Pulse Ox 97.7 F 78 18 123/62 98 09/16/17 07:49 09/16/17 07:49 09/16/17 07:49 09/16/17 07:49 09/16/17 07:49 - Medications Medications: Current Medications Albuterol/Ipratropium (Duoneb 3 Mg/0.5 Mg (3 Ml) Ud) 3 ml INH RQ4 [facility] Last Admin: 09/16/17 07:26 Dose: 3 ml Alprazolam (Xanax) 0.5 mg PO Q8@0600,1400,2200 [facility] Last Admin: 09/16/17 06:52 Dose: 0.5 mg Aspirin (Ecotrin) 81 mg PO DAILY [facility] Last Admin: 09/15/17 08:24 Dose: Not Given Atorvastatin Calcium (Lipitor) 20 mg PO DAILY@2100 [facility] Last Admin: 09/15/17 21:38 Dose: 20 mg Calcium/Vitamin D (Oyster Shell Calcium/Vitamin D 500 Mg-200 Iu) 1 tab PO DAILY [facility] Last Admin: 09/15/17 08:24 Dose: Not Given Clopidogrel Bisulfate (Plavix) 75 mg PO DAILY [facility] Last Admin: 09/15/17 08:24 Dose: Not Given Cyanocobalamin (Vitamin B12 1000 Mcg/Ml Inj) 1,000 mcg IM Q2W [facility] Ergocalciferol (Drisdol 50,000 Intl Units Cap) 1 cap PO MO [facility] Last Admin: 09/15/17 01:36 Dose: Not Given Ferrous Sulfate (Feosol) 325 mg PO BID [facility] Last Admin: 09/15/17 17:17 Dose: 325 mg Fluticasone Propionate (Flonase) 2 spr PRATIBHA HS PRN PRN Reason: Allergy symptoms Last Admin: 09/11/17 16:39 Dose: 2 spr Hydromorphone HCl (Dilaudid) 1 mg PO Q8 PRN PRN Reason: for pain 8-10 Last Admin: 09/16/17 02:20 Dose: 1 mg Losartan Potassium (Cozaar) 12.5 mg PO DAILY [facility] Last Admin: 09/15/17 08:33 Dose: Not Given Metoprolol Succinate (Toprol Xl) 25 mg PO DAILY [facility] Last Admin: 09/15/17 08:34 Dose: 25 mg Multivitamins/Minerals (Therapeutic-M Tab) 1 tab PO DAILY [facility] Last Admin: 09/15/17 08:25 Dose: Not Given Nicotine (Nicoderm Cq) 1 patch TD DAILY [facility] Last Admin: 09/15/17 08:33 Dose: 1 patch Nystatin (Nystatin Oral Susp) 5 ml PO QID [facility] Last Admin: 09/15/17 21:38 Dose: 5 ml Octreotide Acetate (Sandostatin) 100 mcg SC Q12 [facility] Last Admin: 09/15/17 21:42 Dose: 100 mcg Pantoprazole Sodium (Protonix Ec Tab) 40 mg PO DAILY [facility] Last Admin: 09/15/17 08:25 Dose: Not Given Prednisone (Prednisone Tab) 10 mg PO DAILY [facility] Last Admin: 09/15/17 08:24 Dose: Not Given Fluticasone/Salmeterol (Advair Diskus 250/50) 1 puff IH Q12 [facility] Last Admin: 09/15/17 21:25 Dose: 1 puff Sodium Bicarbonate (Sodium Bicarbonate Tab) 650 mg PO Q12 [facility] Last Admin: 09/15/17 21:43 Dose: 650 mg Zolpidem Tartrate (Ambien) 5 mg PO HS [facility] Last Admin: 09/15/17 23:56 Dose: 5 mg - Labs Labs: 09/16/17 05:45 09/16/17 05:45 PT 10.6 Seconds (9.8-13.1) 09/15/17 05:45 INR 1.0 (0.9-1.2) 09/15/17 05:45 - Constitutional Appears: No Acute Distress - Head Exam Head Exam: ATRAUMATIC, NORMAL INSPECTION, NORMOCEPHALIC - Eye Exam Eye Exam: EOMI, Normal appearance, PERRL Pupil Exam: NORMAL ACCOMODATION, PERRL - ENT Exam ENT Exam: Mucous Membranes Moist, Normal Exam - Neck Exam Neck Exam: Full ROM, Normal Inspection. absent: Lymphadenopathy - Respiratory Exam Respiratory Exam: Clear to Ausculation Bilateral, NORMAL BREATHING PATTERN - Cardiovascular Exam Cardiovascular Exam: REGULAR RHYTHM, +S1, +S2. absent: Murmur - GI/Abdominal Exam GI & Abdominal Exam: Soft, Normal Bowel Sounds. absent: Tenderness - Rectal Exam Rectal Exam: NORMAL INSPECTION - Extremities Exam Extremities Exam: Full ROM, Normal Capillary Refill, Normal Inspection. absent : Joint Swelling, Pedal Edema - Back Exam Back Exam: NORMAL INSPECTION - Neurological Exam Neurological Exam: Alert, Awake, CN II-XII Intact, Normal Gait, Oriented x3 - Psychiatric Exam Psychiatric exam: Normal Affect, Normal Mood - Skin Skin Exam: Dry, Intact, Normal Color, Warm Assessment and Plan - Assessment and Plan (Free Text) Assessment: COPD IMPROVING S/P ACUTE [place] ANEMIA-STABLE Plan: CONTINUE CURRENT RX
[2017-09-16] MEDS: Fluticasone-Salmeterol 250-50mcg Diskus IH SCH ×2 (08:50→22:01)
[2017-09-16] MEDS: Pantoprazole 40 mg EC Tab PO SCH (08:55)
[2017-09-16] MEDS: Calcium-Vit D 500 mg-200 Units Tab UD PO SCH (08:56)
[2017-09-16] MEDS: Nystatin 100,000 Units/ml Oral Susp 5 ml UD PO SCH ×4 (08:56→22:09)
[2017-09-16] MEDS: Multivitamin With Minerals Tab PO SCH (08:57)
[2017-09-16] MEDS: Metoprolol Succinate 25 mg XL Tab PO SCH (08:57)
--- NOTE | 2017-09-16 09:06 | CP.PCM.PN ---
Subjective - Date & Time of Evaluation Date of Evaluation: 09/16/17 Time of Evaluation: 07:05 - Subjective Subjective: SURGERY PROGRESS FOR DR. HECK 67F seen and examined at bedside. No acute events overnight. Patient denies pain in the site of operation. Objective - Vital Signs/Intake and Output Vital Signs (last 24 hours): Temp Pulse Resp BP Pulse Ox 97.7 F 78 18 123/62 98 09/16/17 07:49 09/16/17 07:49 09/16/17 07:49 09/16/17 07:49 09/16/17 07:49 - Medications Medications: Current Medications Albuterol/Ipratropium (Duoneb 3 Mg/0.5 Mg (3 Ml) Ud) 3 ml INH RQ4 [facility] Last Admin: 09/16/17 07:26 Dose: 3 ml Alprazolam (Xanax) 0.5 mg PO Q8@0600,1400,2200 [facility] Last Admin: 09/16/17 06:52 Dose: 0.5 mg Aspirin (Ecotrin) 81 mg PO DAILY [facility] Last Admin: 09/15/17 08:24 Dose: Not Given Atorvastatin Calcium (Lipitor) 20 mg PO DAILY@2100 [facility] Last Admin: 09/15/17 21:38 Dose: 20 mg Calcium/Vitamin D (Oyster Shell Calcium/Vitamin D 500 Mg-200 Iu) 1 tab PO DAILY [facility] Last Admin: 09/15/17 08:24 Dose: Not Given Clopidogrel Bisulfate (Plavix) 75 mg PO DAILY [facility] Last Admin: 09/15/17 08:24 Dose: Not Given Cyanocobalamin (Vitamin B12 1000 Mcg/Ml Inj) 1,000 mcg IM Q2W [facility] Ergocalciferol (Drisdol 50,000 Intl Units Cap) 1 cap PO MO [facility] Last Admin: 09/15/17 01:36 Dose: Not Given Ferrous Sulfate (Feosol) 325 mg PO BID [facility] Last Admin: 09/15/17 17:17 Dose: 325 mg Fluticasone Propionate (Flonase) 2 spr PRATIBHA HS PRN PRN Reason: Allergy symptoms Last Admin: 09/11/17 16:39 Dose: 2 spr Hydromorphone HCl (Dilaudid) 1 mg PO Q8 PRN PRN Reason: for pain 8-10 Last Admin: 09/16/17 02:20 Dose: 1 mg Losartan Potassium (Cozaar) 12.5 mg PO DAILY [facility] Last Admin: 09/15/17 08:33 Dose: Not Given Metoprolol Succinate (Toprol Xl) 25 mg PO DAILY [facility] Last Admin: 09/15/17 08:34 Dose: 25 mg Multivitamins/Minerals (Therapeutic-M Tab) 1 tab PO DAILY [facility] Last Admin: 09/15/17 08:25 Dose: Not Given Nicotine (Nicoderm Cq) 1 patch TD DAILY [facility] Last Admin: 09/15/17 08:33 Dose: 1 patch Nystatin (Nystatin Oral Susp) 5 ml PO QID [facility] Last Admin: 09/15/17 21:38 Dose: 5 ml Octreotide Acetate (Sandostatin) 100 mcg SC Q12 [facility] Last Admin: 09/15/17 21:42 Dose: 100 mcg Pantoprazole Sodium (Protonix Ec Tab) 40 mg PO DAILY [facility] Last Admin: 09/15/17 08:25 Dose: Not Given Prednisone (Prednisone Tab) 10 mg PO DAILY [facility] Last Admin: 09/15/17 08:24 Dose: Not Given Fluticasone/Salmeterol (Advair Diskus 250/50) 1 puff IH Q12 [facility] Last Admin: 09/15/17 21:25 Dose: 1 puff Sodium Bicarbonate (Sodium Bicarbonate Tab) 650 mg PO Q12 [facility] Last Admin: 09/15/17 21:43 Dose: 650 mg Zolpidem Tartrate (Ambien) 5 mg PO HS [facility] Last Admin: 09/15/17 23:56 Dose: 5 mg - Labs Labs: 09/16/17 05:45 09/16/17 05:45 PT 10.6 Seconds (9.8-13.1) 09/15/17 05:45 INR 1.0 (0.9-1.2) 09/15/17 05:45 - Constitutional Appears: Well, Non-toxic, No Acute Distress - Respiratory Exam Respiratory Exam: Clear to Ausculation Bilateral, NORMAL BREATHING PATTERN - Cardiovascular Exam Cardiovascular Exam: REGULAR RHYTHM, +S1, +S2 - GI/Abdominal Exam GI & Abdominal Exam: Soft. 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 Julianne Bello, PGY2
--- NOTE | 2017-09-16 13:12 | CP.SDSHP ---
Same Day Surgery H & P - History Proposed Procedure: Port evaluation Pre-Op Diagnosis: Poor flow from port. - Allergies Allergies: Allergies Sulfa (Sulfonamide Antibiotics) Allergy (Verified 09/15/17 12:38) crystallized kidneys - Physical Exam Vital Signs: Vital Signs 09/16/17 09/16/17 09/16/17 07:49 08:57 09:02 Temperature 97.7 F Pulse Rate 78 78 91 H Respiratory 18 96 H Rate Blood Pressure 123/62 123/62 O2 Sat by Pulse 98 Oximetry 09/16/17 09:26 Temperature Pulse Rate 86 Respiratory Rate Blood Pressure 123/62 O2 Sat by Pulse Oximetry Mental Status: Alert & Oriented x3 - Impression Impression: Pt with left chest port with reported poor flow. Plan port evaluation with injection of contrast dye to assess for venous stenosis or fibrin products that may impact flow. Pt. Evaluated Today:Candidate for Anesthesia & Procedure: No - Date & Time Date: 09/16/17 Time: 13:05 Short Stay Discharge - Short Stay Discharge Admitting Diagnosis/Reason for Visit: EXACERBATION COPD Disposition: REHAB FACILITY/REHAB UNIT Referrals: Lasha Rodriguez MD [Primary Care Provider] -
--- NOTE | 2017-09-16 13:37 | PCM.SURG1 ---
Surgeon's Initial Post Op Note - Surgeon's Notes Surgeon: Wilber Bergeron MD Duct Layer: NONE Type of Anesthesia: None Pre-Operative Diagnosis: Port dysfunction Operative Findings: Left subclavian port. Port is intact. No evidence of fibrin sheet. Port flushes and aspirates easily. Post-Operative Diagnosis: Port dysfunction Operation Performed: Port evaluation Specimen/Specimens Removed: NONE Estimated Blood Loss: EBL {In ML}: 0 Blood Products Given: N/A Drains Used: No Drains Post-Op Condition: Fair Date of Surgery/Procedure: 09/16/17 Time of Surgery/Procedure: 13:30
--- NOTE | 2017-09-16 21:41 | CP.PCM.PN ---
Objective - Vital Signs/Intake and Output Vital Signs (last 24 hours): Temp Pulse Resp BP Pulse Ox 97.5 F L 88 20 137/65 94 L 09/16/17 20:53 09/16/17 20:53 09/16/17 20:53 09/16/17 20:53 09/16/17 20:53 - Medications Medications: Current Medications Albuterol/Ipratropium (Duoneb 3 Mg/0.5 Mg (3 Ml) Ud) 3 ml INH RQ4 [facility] Last Admin: 09/16/17 20:12 Dose: 3 ml Alprazolam (Xanax) 0.5 mg PO Q8@0600,1400,2200 [facility] Last Admin: 09/16/17 14:01 Dose: 0.5 mg Aspirin (Ecotrin) 81 mg PO DAILY [facility] Last Admin: 09/16/17 16:40 Dose: 81 mg Atorvastatin Calcium (Lipitor) 20 mg PO DAILY@2100 [facility] Last Admin: 09/15/17 21:38 Dose: 20 mg Calcium/Vitamin D (Oyster Shell Calcium/Vitamin D 500 Mg-200 Iu) 1 tab PO DAILY [facility] Last Admin: 09/16/17 08:56 Dose: 1 tab Clopidogrel Bisulfate (Plavix) 75 mg PO DAILY [facility] Last Admin: 09/16/17 16:40 Dose: 75 mg Cyanocobalamin (Vitamin B12 1000 Mcg/Ml Inj) 1,000 mcg IM Q2W [facility] Ergocalciferol (Drisdol 50,000 Intl Units Cap) 1 cap PO MO [facility] Last Admin: 09/15/17 01:36 Dose: Not Given Ferrous Sulfate (Feosol) 325 mg PO BID [facility] Last Admin: 09/16/17 16:40 Dose: 325 mg Fluticasone Propionate (Flonase) 2 spr PRATIBHA HS PRN PRN Reason: Allergy symptoms Last Admin: 09/11/17 16:39 Dose: 2 spr Hydromorphone HCl (Dilaudid) 1 mg PO Q8 PRN PRN Reason: for pain 8-10 Last Admin: 09/16/17 02:20 Dose: 1 mg Losartan Potassium (Cozaar) 12.5 mg PO DAILY [facility] Last Admin: 09/16/17 09:26 Dose: 12.5 mg Metoprolol Succinate (Toprol Xl) 25 mg PO DAILY [facility] Last Admin: 09/16/17 08:57 Dose: 25 mg Multivitamins/Minerals (Therapeutic-M Tab) 1 tab PO DAILY [facility] Last Admin: 09/16/17 08:57 Dose: 1 tab Nicotine (Nicoderm Cq) 1 patch TD DAILY [facility] Last Admin: 09/16/17 08:51 Dose: 1 patch Nystatin (Nystatin Oral Susp) 5 ml PO QID [facility] Last Admin: 09/16/17 16:39 Dose: 5 ml Octreotide Acetate (Sandostatin) 100 mcg SC Q12 [facility] Last Admin: 09/16/17 10:07 Dose: 100 mcg Pantoprazole Sodium (Protonix Ec Tab) 40 mg PO DAILY [facility] Last Admin: 09/16/17 08:55 Dose: 40 mg Prednisone (Prednisone Tab) 10 mg PO DAILY [facility] Last Admin: 09/16/17 08:55 Dose: 10 mg Fluticasone/Salmeterol (Advair Diskus 250/50) 1 puff IH Q12 [facility] Last Admin: 09/16/17 08:50 Dose: 1 puff Sodium Bicarbonate (Sodium Bicarbonate Tab) 650 mg PO Q12 [facility] Last Admin: 09/16/17 08:50 Dose: 650 mg Zolpidem Tartrate (Ambien) 5 mg PO HS [facility] Last Admin: 09/15/17 23:56 Dose: 5 mg - Labs Labs: 09/16/17 05:45 09/16/17 05:45 PT 10.6 Seconds (9.8-13.1) 09/15/17 05:45 INR 1.0 (0.9-1.2) 09/15/17 05:45
[2017-09-17] MEDS: Albuterol-Ipratrop 3 mg / 0.5 (3 ml) UD INH SCH ×6 (04:21→23:10)
[2017-09-17] MEDS: Fluticasone-Salmeterol 250-50mcg Diskus IH SCH ×2 (08:53→21:00)
[2017-09-17] MEDS: Calcium-Vit D 500 mg-200 Units Tab UD PO SCH (08:53)
[2017-09-17] MEDS: Multivitamin With Minerals Tab PO SCH (08:53)
[2017-09-17] MEDS: Pantoprazole 40 mg EC Tab PO SCH (08:54)
[2017-09-17] MEDS: Nystatin 100,000 Units/ml Oral Susp 5 ml UD PO SCH ×4 (08:57→21:01)
[2017-09-17] MEDS: Metoprolol Succinate 25 mg XL Tab PO SCH (09:30)
--- NOTE | 2017-09-17 10:42 | CP.PCM.PN ---
Subjective - Date & Time of Evaluation Date of Evaluation: 09/17/17 Time of Evaluation: 09:30 - Subjective Subjective: NO COMPLAINTS OF CHEST PAIN LESS DISCOMFORT IN THE RIGHT GROIN Objective - Vital Signs/Intake and Output Vital Signs (last 24 hours): Temp Pulse Resp BP Pulse Ox 96.6 F L 85 20 132/52 L 96 09/17/17 08:47 09/17/17 09:30 09/17/17 08:47 09/17/17 09:30 09/17/17 08:56 - Medications Medications: Current Medications Albuterol/Ipratropium (Duoneb 3 Mg/0.5 Mg (3 Ml) Ud) 3 ml INH RQ4 [facility] Last Admin: 09/17/17 07:30 Dose: 3 ml Alprazolam (Xanax) 0.5 mg PO Q8@0600,1400,2200 [facility] Last Admin: 09/17/17 06:19 Dose: 0.5 mg Aspirin (Ecotrin) 81 mg PO DAILY [facility] Last Admin: 09/17/17 09:31 Dose: 81 mg Atorvastatin Calcium (Lipitor) 20 mg PO DAILY@2100 [facility] Last Admin: 09/16/17 22:08 Dose: 20 mg Calcium/Vitamin D (Oyster Shell Calcium/Vitamin D 500 Mg-200 Iu) 1 tab PO DAILY [facility] Last Admin: 09/17/17 08:53 Dose: 1 tab Clopidogrel Bisulfate (Plavix) 75 mg PO DAILY [facility] Last Admin: 09/17/17 08:54 Dose: 75 mg Cyanocobalamin (Vitamin B12 1000 Mcg/Ml Inj) 1,000 mcg IM Q2W [facility] Ergocalciferol (Drisdol 50,000 Intl Units Cap) 1 cap PO MO [facility] Last Admin: 09/15/17 01:36 Dose: Not Given Ferrous Sulfate (Feosol) 325 mg PO BID [facility] Last Admin: 09/17/17 08:54 Dose: 325 mg Fluticasone Propionate (Flonase) 2 spr RPATIBHA HS PRN PRN Reason: Allergy symptoms Last Admin: 09/11/17 16:39 Dose: 2 spr Hydromorphone HCl (Dilaudid) 1 mg PO Q8 PRN PRN Reason: for pain 8-10 Last Admin: 09/17/17 00:53 Dose: 1 mg Losartan Potassium (Cozaar) 12.5 mg PO DAILY [facility] Last Admin: 09/17/17 08:54 Dose: 12.5 mg Metoprolol Succinate (Toprol Xl) 25 mg PO DAILY [facility] Last Admin: 09/17/17 09:30 Dose: 25 mg Multivitamins/Minerals (Therapeutic-M Tab) 1 tab PO DAILY [facility] Last Admin: 09/17/17 08:53 Dose: 1 tab Nicotine (Nicoderm Cq) 1 patch TD DAILY [facility] Last Admin: 09/17/17 08:57 Dose: 1 patch Nystatin (Nystatin Oral Susp) 5 ml PO QID [facility] Last Admin: 09/17/17 08:57 Dose: 5 ml Octreotide Acetate (Sandostatin) 100 mcg SC Q12 [facility] Last Admin: 09/17/17 09:31 Dose: 100 mcg Pantoprazole Sodium (Protonix Ec Tab) 40 mg PO DAILY [facility] Last Admin: 09/17/17 08:54 Dose: 40 mg Prednisone (Prednisone Tab) 10 mg PO DAILY [facility] Last Admin: 09/17/17 08:53 Dose: 10 mg Fluticasone/Salmeterol (Advair Diskus 250/50) 1 puff IH Q12 [facility] Last Admin: 09/17/17 08:53 Dose: 1 puff Sodium Bicarbonate (Sodium Bicarbonate Tab) 650 mg PO Q12 [facility] Last Admin: 09/17/17 08:53 Dose: 650 mg Zolpidem Tartrate (Ambien) 5 mg PO HS [facility] Last Admin: 09/16/17 22:06 Dose: 5 mg - Labs Labs: 09/16/17 05:45 09/16/17 05:45 PT 10.6 Seconds (9.8-13.1) 09/15/17 05:45 INR 1.0 (0.9-1.2) 09/15/17 05:45 - Respiratory Exam Respiratory Exam: Clear to Ausculation Bilateral - Cardiovascular Exam Cardiovascular Exam: REGULAR RHYTHM, +S1, +S2 - Extremities Exam Additional comments: NO LE EDEMA - Additional Findings Additional findings: OR NOTE FROM VASCULAR REVIEWED WITH THROMBIN INJECTION INTO RIGHT COMMON FEMORAL ARTERY PSEUDOANEURYSM Assessment and Plan - Assessment and Plan (Free Text) Assessment: CAD WITH AWMI 2 WEEKS AGO-STABLE HYPERTENSION COPD Plan: CONTINUE METOPROLOL, LOSARTAN, ASPIRIN, CLOPIDOGREL, ATORVASTATIN AND BRONCHODILATORS
--- NOTE | 2017-09-17 22:14 | CP.PCM.PN ---
Subjective - Subjective Subjective: Pt is resting in bed, no CP or SOB, no abd pain or leg pain Objective - Vital Signs/Intake and Output Vital Signs (last 24 hours): Temp Pulse Resp BP Pulse Ox 96.8 F L 75 20 125/58 L 92 L 09/17/17 19:44 09/17/17 19:44 09/17/17 19:44 09/17/17 19:44 09/17/17 19:44 - Medications Medications: Current Medications Albuterol/Ipratropium (Duoneb 3 Mg/0.5 Mg (3 Ml) Ud) 3 ml INH RQ4 [facility] Last Admin: 09/17/17 19:54 Dose: 3 ml Alprazolam (Xanax) 0.5 mg PO Q8@0600,1400,2200 [facility] Last Admin: 09/17/17 14:06 Dose: 0.5 mg Aspirin (Ecotrin) 81 mg PO DAILY [facility] Last Admin: 09/17/17 09:31 Dose: 81 mg Atorvastatin Calcium (Lipitor) 20 mg PO DAILY@2100 [facility] Last Admin: 09/17/17 21:00 Dose: 20 mg Calcium/Vitamin D (Oyster Shell Calcium/Vitamin D 500 Mg-200 Iu) 1 tab PO DAILY [facility] Last Admin: 09/17/17 08:53 Dose: 1 tab Clopidogrel Bisulfate (Plavix) 75 mg PO DAILY [facility] Last Admin: 09/17/17 08:54 Dose: 75 mg Cyanocobalamin (Vitamin B12 1000 Mcg/Ml Inj) 1,000 mcg IM Q2W [facility] Ergocalciferol (Drisdol 50,000 Intl Units Cap) 1 cap PO MO [facility] Last Admin: 09/15/17 01:36 Dose: Not Given Ferrous Sulfate (Feosol) 325 mg PO BID [facility] Last Admin: 09/17/17 17:21 Dose: 325 mg Fluticasone Propionate (Flonase) 2 spr PRATIBHA HS PRN PRN Reason: Allergy symptoms Last Admin: 09/11/17 16:39 Dose: 2 spr Hydromorphone HCl (Dilaudid) 1 mg PO Q8 PRN PRN Reason: for pain 8-10 Last Admin: 09/17/17 00:53 Dose: 1 mg Losartan Potassium (Cozaar) 12.5 mg PO DAILY [facility] Last Admin: 09/17/17 08:54 Dose: 12.5 mg Metoprolol Succinate (Toprol Xl) 25 mg PO DAILY [facility] Last Admin: 09/17/17 09:30 Dose: 25 mg Multivitamins/Minerals (Therapeutic-M Tab) 1 tab PO DAILY [facility] Last Admin: 09/17/17 08:53 Dose: 1 tab Nicotine (Nicoderm Cq) 1 patch TD DAILY [facility] Last Admin: 09/17/17 08:57 Dose: 1 patch Nystatin (Nystatin Oral Susp) 5 ml PO QID [facility] Last Admin: 09/17/17 21:01 Dose: 5 ml Octreotide Acetate (Sandostatin) 100 mcg SC Q12 [facility] Last Admin: 09/17/17 21:03 Dose: 100 mcg Pantoprazole Sodium (Protonix Ec Tab) 40 mg PO DAILY [facility] Last Admin: 09/17/17 08:54 Dose: 40 mg Prednisone (Prednisone Tab) 10 mg PO DAILY [facility] Last Admin: 09/17/17 08:53 Dose: 10 mg Fluticasone/Salmeterol (Advair Diskus 250/50) 1 puff IH Q12 [facility] Last Admin: 09/17/17 21:00 Dose: 1 puff Sodium Bicarbonate (Sodium Bicarbonate Tab) 650 mg PO Q12 [facility] Last Admin: 09/17/17 21:02 Dose: 650 mg Zolpidem Tartrate (Ambien) 5 mg PO HS [facility] Last Admin: 09/16/17 22:06 Dose: 5 mg - Labs Labs: 09/16/17 05:45 09/16/17 05:45 PT 10.6 Seconds (9.8-13.1) 09/15/17 05:45 INR 1.0 (0.9-1.2) 09/15/17 05:45 - Constitutional Appears: Well, No Acute Distress, Older Than Stated Age, Chronically Ill - Head Exam Head Exam: ATRAUMATIC - Eye Exam Eye Exam: EOMI, Normal appearance, PERRL Pupil Exam: NORMAL ACCOMODATION - ENT Exam ENT Exam: Mucous Membranes Moist - Neck Exam Neck Exam: Normal Inspection - Respiratory Exam Respiratory Exam: Clear to Ausculation Bilateral, NORMAL BREATHING PATTERN - Cardiovascular Exam Cardiovascular Exam: REGULAR RHYTHM - GI/Abdominal Exam GI & Abdominal Exam: Normal Bowel Sounds Additional comments: R colostomy - Extremities Exam Extremities Exam: Full ROM Additional comments: R thigh ecchymosis decreasing and resolving - Back Exam Back Exam: NORMAL INSPECTION - Neurological Exam Neurological Exam: Alert, Awake, Oriented x3 - Psychiatric Exam Psychiatric exam: Normal Affect, Normal Mood - Skin Skin Exam: Dry, Intact Additional comments: Ecchymosis to ext Assessment and Plan - Assessment and Plan (Free Text) Assessment: 67 y/o female with -AMI s/p cath with hematoma R thigh, improved, continue with current medical management, monitor CBC -chronic hyponatremia, asymptomatic, monitor closely -chronic COPD, ambulates short distance with decreasing O2 sat to <80%, will need home O2, continue medical management, home O2 supplement on discharge.
[2017-09-18] MEDS: Albuterol-Ipratrop 3 mg / 0.5 (3 ml) UD INH SCH ×5 (03:12→19:18)
[2017-09-18] MEDS: Fluticasone-Salmeterol 250-50mcg Diskus IH SCH ×2 (08:16→21:58)
[2017-09-18] MEDS: Calcium-Vit D 500 mg-200 Units Tab UD PO SCH (08:17)
[2017-09-18] MEDS: Metoprolol Succinate 25 mg XL Tab PO SCH (08:18)
[2017-09-18] MEDS: Multivitamin With Minerals Tab PO SCH (08:18)
[2017-09-18] MEDS: Pantoprazole 40 mg EC Tab PO SCH (08:18)
[2017-09-18] MEDS: Nystatin 100,000 Units/ml Oral Susp 5 ml UD PO SCH ×4 (08:19→21:59)
--- NOTE | 2017-09-18 16:31 | CP.PCM.PN ---
Subjective - Date & Time of Evaluation Date of Evaluation: 09/17/17 Time of Evaluation: 13:00 - Subjective Subjective: Gets short of breath with PT Objective - Vital Signs/Intake and Output Vital Signs (last 24 hours): Temp Pulse Resp BP Pulse Ox 97.9 F 84 20 114/56 L 97 09/18/17 07:59 09/18/17 08:47 09/18/17 07:59 09/18/17 08:19 09/18/17 08:47 - Medications Medications: Current Medications Albuterol/Ipratropium (Duoneb 3 Mg/0.5 Mg (3 Ml) Ud) 3 ml INH RQ4 [facility] Last Admin: 09/18/17 15:55 Dose: 3 ml Alprazolam (Xanax) 0.5 mg PO Q8@0600,1400,2200 [facility] Last Admin: 09/18/17 13:14 Dose: 0.5 mg Aspirin (Ecotrin) 81 mg PO DAILY [facility] Last Admin: 09/18/17 08:18 Dose: 81 mg Atorvastatin Calcium (Lipitor) 20 mg PO DAILY@2100 [facility] Last Admin: 09/17/17 21:00 Dose: 20 mg Calcium/Vitamin D (Oyster Shell Calcium/Vitamin D 500 Mg-200 Iu) 1 tab PO DAILY [facility] Last Admin: 09/18/17 08:17 Dose: 1 tab Clopidogrel Bisulfate (Plavix) 75 mg PO DAILY [facility] Last Admin: 09/18/17 08:18 Dose: 75 mg Cyanocobalamin (Vitamin B12 1000 Mcg/Ml Inj) 1,000 mcg IM Q2W [facility] Ergocalciferol (Drisdol 50,000 Intl Units Cap) 1 cap PO MO [facility] Last Admin: 09/15/17 01:36 Dose: Not Given Ferrous Sulfate (Feosol) 325 mg PO BID [facility] Last Admin: 09/18/17 08:18 Dose: 325 mg Fluticasone Propionate (Flonase) 2 spr PRATIBHA HS PRN PRN Reason: Allergy symptoms Last Admin: 09/11/17 16:39 Dose: 2 spr Hydromorphone HCl (Dilaudid) 1 mg PO Q8 PRN PRN Reason: for pain 8-10 Last Admin: 09/17/17 00:53 Dose: 1 mg Losartan Potassium (Cozaar) 12.5 mg PO DAILY [facility] Last Admin: 09/18/17 08:19 Dose: 12.5 mg Metoprolol Succinate (Toprol Xl) 25 mg PO DAILY [facility] Last Admin: 09/18/17 08:18 Dose: 25 mg Multivitamins/Minerals (Therapeutic-M Tab) 1 tab PO DAILY [facility] Last Admin: 09/18/17 08:18 Dose: 1 tab Nicotine (Nicoderm Cq) 1 patch TD DAILY [facility] Last Admin: 09/18/17 08:17 Dose: 1 patch Nystatin (Nystatin Oral Susp) 5 ml PO QID [facility] Last Admin: 09/18/17 13:09 Dose: 5 ml Octreotide Acetate (Sandostatin) 100 mcg SC Q12 [facility] Last Admin: 09/18/17 08:25 Dose: 100 mcg Pantoprazole Sodium (Protonix Ec Tab) 40 mg PO DAILY [facility] Last Admin: 09/18/17 08:18 Dose: 40 mg Fluticasone/Salmeterol (Advair Diskus 250/50) 1 puff IH Q12 [facility] Last Admin: 09/18/17 08:16 Dose: 1 puff Sodium Bicarbonate (Sodium Bicarbonate Tab) 650 mg PO Q12 [facility] Last Admin: 09/18/17 08:17 Dose: 650 mg Zolpidem Tartrate (Ambien) 5 mg PO HS [facility] Last Admin: 09/17/17 22:14 Dose: 5 mg - Labs Labs: 09/16/17 05:45 09/16/17 05:45 PT 10.6 Seconds (9.8-13.1) 09/15/17 05:45 INR 1.0 (0.9-1.2) 09/15/17 05:45 - Head Exam Head Exam: ATRAUMATIC - Eye Exam Eye Exam: Normal appearance - ENT Exam ENT Exam: Mucous Membranes Dry - Respiratory Exam Respiratory Exam: NORMAL BREATHING PATTERN - Cardiovascular Exam Cardiovascular Exam: +S1, +S2 - GI/Abdominal Exam GI & Abdominal Exam: Normal Bowel Sounds Assessment and Plan (1) Anemia Assessment & Plan: counts stable chronic disease, hematoma bleeding s/p pseudo aneurysm injection s/p PRBC transfusion Status: Acute
--- NOTE | 2017-09-18 22:09 | CP.PCM.PN ---
Objective - Vital Signs/Intake and Output Vital Signs (last 24 hours): Temp Pulse Resp BP Pulse Ox 97.5 F L 80 20 113/63 98 09/18/17 21:17 09/18/17 21:17 09/18/17 21:17 09/18/17 21:17 09/18/17 21:17 - Medications Medications: Current Medications Albuterol/Ipratropium (Duoneb 3 Mg/0.5 Mg (3 Ml) Ud) 3 ml INH RQ4 [facility] Last Admin: 09/18/17 19:18 Dose: 3 ml Alprazolam (Xanax) 0.5 mg PO Q8@0600,1400,2200 [facility] Last Admin: 09/18/17 22:05 Dose: 0.5 mg Aspirin (Ecotrin) 81 mg PO DAILY [facility] Last Admin: 09/18/17 08:18 Dose: 81 mg Atorvastatin Calcium (Lipitor) 20 mg PO DAILY@2100 [facility] Last Admin: 09/18/17 21:59 Dose: 20 mg Calcium/Vitamin D (Oyster Shell Calcium/Vitamin D 500 Mg-200 Iu) 1 tab PO DAILY [facility] Last Admin: 09/18/17 08:17 Dose: 1 tab Clopidogrel Bisulfate (Plavix) 75 mg PO DAILY [facility] Last Admin: 09/18/17 08:18 Dose: 75 mg Cyanocobalamin (Vitamin B12 1000 Mcg/Ml Inj) 1,000 mcg IM Q2W [facility] Ergocalciferol (Drisdol 50,000 Intl Units Cap) 1 cap PO MO [facility] Last Admin: 09/15/17 01:36 Dose: Not Given Ferrous Sulfate (Feosol) 325 mg PO BID [facility] Last Admin: 09/18/17 17:01 Dose: 325 mg Fluticasone Propionate (Flonase) 2 spr PRATIBHA HS PRN PRN Reason: Allergy symptoms Last Admin: 09/11/17 16:39 Dose: 2 spr Hydromorphone HCl (Dilaudid) 1 mg PO Q8 PRN PRN Reason: for pain 8-10 Last Admin: 09/17/17 00:53 Dose: 1 mg Losartan Potassium (Cozaar) 12.5 mg PO DAILY [facility] Last Admin: 09/18/17 08:19 Dose: 12.5 mg Metoprolol Succinate (Toprol Xl) 25 mg PO DAILY [facility] Last Admin: 09/18/17 08:18 Dose: 25 mg Multivitamins/Minerals (Therapeutic-M Tab) 1 tab PO DAILY [facility] Last Admin: 09/18/17 08:18 Dose: 1 tab Nicotine (Nicoderm Cq) 1 patch TD DAILY [facility] Last Admin: 09/18/17 08:17 Dose: 1 patch Nystatin (Nystatin Oral Susp) 5 ml PO QID [facility] Last Admin: 09/18/17 21:59 Dose: 5 ml Octreotide Acetate (Sandostatin) 100 mcg SC Q12 [facility] Last Admin: 09/18/17 22:00 Dose: 100 mcg Pantoprazole Sodium (Protonix Ec Tab) 40 mg PO DAILY [facility] Last Admin: 09/18/17 08:18 Dose: 40 mg Prednisone (Prednisone Tab) 10 mg PO DAILY [facility] Fluticasone/Salmeterol (Advair Diskus 250/50) 1 puff IH Q12 [facility] Last Admin: 09/18/17 21:58 Dose: 1 puff Sodium Bicarbonate (Sodium Bicarbonate Tab) 650 mg PO Q12 [facility] Last Admin: 09/18/17 22:05 Dose: 650 mg Zolpidem Tartrate (Ambien) 5 mg PO HS [facility] Last Admin: 09/17/17 22:14 Dose: 5 mg - Labs Labs: 09/16/17 05:45 09/16/17 05:45 PT 10.6 Seconds (9.8-13.1) 09/15/17 05:45 INR 1.0 (0.9-1.2) 09/15/17 05:45
[2017-09-19] MEDS: Albuterol-Ipratrop 3 mg / 0.5 (3 ml) UD INH SCH ×6 (00:04→21:08)
[2017-09-19 07:25] LABS: BLOOD UREA NITROGEN 10 mg/dl (7-17); GFR AFRICAN-AMERICAN > 60; GFR NON-AFRICAN AMERICAN > 60
[2017-09-19 07:29] LABS: HEMOGLOBIN 10.3 g/dL (12.0-16.0); MEAN CELL VOLUME 93.5 fl (81.0-99.0); MEAN CORPUSCULAR HEMOGLOBIN 32.5 pg (27.0-31.0); MEAN CORPUSCULAR HGB CONC 34.8 g/dL (33.0-37.0); RBC 3.18 Mil/uL (3.80-5.20); RED CELL DISTRIBUTION WIDTH 14.9 % (11.5-14.5); WHITE BLOOD COUNT 11.4 K/uL (4.8-10.8)
[2017-09-19] MEDS: Fluticasone-Salmeterol 250-50mcg Diskus IH SCH ×2 (08:37→21:25)
[2017-09-19] MEDS: Nystatin 100,000 Units/ml Oral Susp 5 ml UD PO SCH ×4 (08:38→21:48)
[2017-09-19] MEDS: Calcium-Vit D 500 mg-200 Units Tab UD PO SCH (08:38)
[2017-09-19] MEDS: Pantoprazole 40 mg EC Tab PO SCH (08:38)
[2017-09-19] MEDS: Multivitamin With Minerals Tab PO SCH (08:39)
[2017-09-19] MEDS: Metoprolol Succinate 25 mg XL Tab PO SCH (08:39)
--- NOTE | 2017-09-19 12:38 | CP.PCM.PN ---
Subjective - Date & Time of Evaluation Date of Evaluation: 09/19/17 Time of Evaluation: 11:45 - Subjective Subjective: NO CHEST PAIN BREATHING COMFORTABLY STILL DOESN'T THINK SHE IS READY TO GO HOME Objective - Vital Signs/Intake and Output Vital Signs (last 24 hours): Temp Pulse Resp BP Pulse Ox 97.9 F 81 20 132/59 L 100 09/19/17 08:59 09/19/17 08:59 09/19/17 08:59 09/19/17 08:59 09/19/17 08:59 - Medications Medications: Current Medications Albuterol/Ipratropium (Duoneb 3 Mg/0.5 Mg (3 Ml) Ud) 3 ml INH RQ4 [facility] Last Admin: 09/19/17 11:17 Dose: 3 ml Alprazolam (Xanax) 0.5 mg PO Q8@0600,1400,2200 [facility] Last Admin: 09/19/17 05:16 Dose: 0.5 mg Aspirin (Ecotrin) 81 mg PO DAILY [facility] Last Admin: 09/19/17 08:37 Dose: 81 mg Atorvastatin Calcium (Lipitor) 20 mg PO DAILY@2100 [facility] Last Admin: 09/18/17 21:59 Dose: 20 mg Calcium/Vitamin D (Oyster Shell Calcium/Vitamin D 500 Mg-200 Iu) 1 tab PO DAILY [facility] Last Admin: 09/19/17 08:38 Dose: 1 tab Clopidogrel Bisulfate (Plavix) 75 mg PO DAILY [facility] Last Admin: 09/19/17 08:38 Dose: 75 mg Cyanocobalamin (Vitamin B12 1000 Mcg/Ml Inj) 1,000 mcg IM Q2W [facility] Ergocalciferol (Drisdol 50,000 Intl Units Cap) 1 cap PO MO [facility] Last Admin: 09/15/17 01:36 Dose: Not Given Ferrous Sulfate (Feosol) 325 mg PO BID [facility] Last Admin: 09/19/17 08:37 Dose: 325 mg Fluticasone Propionate (Flonase) 2 spr PRATIBHA HS PRN PRN Reason: Allergy symptoms Last Admin: 09/11/17 16:39 Dose: 2 spr Hydromorphone HCl (Dilaudid) 1 mg PO Q8 PRN PRN Reason: for pain 8-10 Last Admin: 09/18/17 23:21 Dose: 1 mg Losartan Potassium (Cozaar) 12.5 mg PO DAILY [facility] Last Admin: 09/19/17 08:37 Dose: 12.5 mg Metoprolol Succinate (Toprol Xl) 25 mg PO DAILY [facility] Last Admin: 09/19/17 08:39 Dose: 25 mg Multivitamins/Minerals (Therapeutic-M Tab) 1 tab PO DAILY [facility] Last Admin: 09/19/17 08:39 Dose: 1 tab Nicotine (Nicoderm Cq) 1 patch TD DAILY [facility] Last Admin: 09/19/17 08:38 Dose: 1 patch Nystatin (Nystatin Oral Susp) 5 ml PO QID [facility] Last Admin: 09/19/17 12:34 Dose: 5 ml Octreotide Acetate (Sandostatin) 100 mcg SC Q12 [facility] Last Admin: 09/19/17 08:38 Dose: 100 mcg Pantoprazole Sodium (Protonix Ec Tab) 40 mg PO DAILY [facility] Last Admin: 09/19/17 08:38 Dose: 40 mg Prednisone (Prednisone Tab) 10 mg PO DAILY [facility] Last Admin: 09/19/17 08:38 Dose: 10 mg Fluticasone/Salmeterol (Advair Diskus 250/50) 1 puff IH Q12 [facility] Sodium Bicarbonate (Sodium Bicarbonate Tab) 650 mg PO Q12 [facility] Last Admin: 09/19/17 08:39 Dose: 650 mg Zolpidem Tartrate (Ambien) 5 mg PO HS [facility] Last Admin: 09/19/17 00:32 Dose: 5 mg - Labs Labs: 09/19/17 07:04 09/19/17 07:04 PT 10.6 Seconds (9.8-13.1) 09/15/17 05:45 INR 1.0 (0.9-1.2) 09/15/17 05:45 - Respiratory Exam Respiratory Exam: Clear to Ausculation Bilateral - Cardiovascular Exam Cardiovascular Exam: REGULAR RHYTHM, +S1, +S2 - Back Exam Additional comments: NO LE EDEMA AT THE PRESENT TIME Assessment and Plan - Assessment and Plan (Free Text) Assessment: CAD WITH RECENT PA HYPERTENSION COPD Plan: CONTINUE ASPIRIN, CLOPIDOGREL, ATORVASTATIN, METOPROLOL, LOSARTAN AND BRONCHODILATORS THE PATIENT HAS BEEN EXTENDED IN SUBACUTE REHAB
--- NOTE | 2017-09-19 13:38 | CP.PCM.PN ---
Subjective - Date & Time of Evaluation Date of Evaluation: 09/19/17 Time of Evaluation: 13:38 - Subjective Subjective: FEELS BETTER SOB IMPROVED PT/OT PROGRESSING WELL LUNGS-FAIR AERATION HEART-S1S2 IMP-COPD IMPROVING PLAN-CONTINUE CURRENT RX Objective - Vital Signs/Intake and Output Vital Signs (last 24 hours): Temp Pulse Resp BP Pulse Ox 97.9 F 81 20 132/59 L 100 09/19/17 08:59 09/19/17 08:59 09/19/17 08:59 09/19/17 08:59 09/19/17 08:59 - Medications Medications: Current Medications Albuterol/Ipratropium (Duoneb 3 Mg/0.5 Mg (3 Ml) Ud) 3 ml INH RQ4 [facility] Last Admin: 09/19/17 11:17 Dose: 3 ml Alprazolam (Xanax) 0.5 mg PO Q8@0600,1400,2200 [facility] Last Admin: 09/19/17 05:16 Dose: 0.5 mg Aspirin (Ecotrin) 81 mg PO DAILY [facility] Last Admin: 09/19/17 08:37 Dose: 81 mg Atorvastatin Calcium (Lipitor) 20 mg PO DAILY@2100 [facility] Last Admin: 09/18/17 21:59 Dose: 20 mg Calcium/Vitamin D (Oyster Shell Calcium/Vitamin D 500 Mg-200 Iu) 1 tab PO DAILY [facility] Last Admin: 09/19/17 08:38 Dose: 1 tab Clopidogrel Bisulfate (Plavix) 75 mg PO DAILY [facility] Last Admin: 09/19/17 08:38 Dose: 75 mg Cyanocobalamin (Vitamin B12 1000 Mcg/Ml Inj) 1,000 mcg IM Q2W [facility] Ergocalciferol (Drisdol 50,000 Intl Units Cap) 1 cap PO MO [facility] Last Admin: 09/15/17 01:36 Dose: Not Given Ferrous Sulfate (Feosol) 325 mg PO BID [facility] Last Admin: 09/19/17 08:37 Dose: 325 mg Fluticasone Propionate (Flonase) 2 spr PRATIBHA HS PRN PRN Reason: Allergy symptoms Last Admin: 09/11/17 16:39 Dose: 2 spr Hydromorphone HCl (Dilaudid) 1 mg PO Q8 PRN PRN Reason: for pain 8-10 Last Admin: 09/18/17 23:21 Dose: 1 mg Losartan Potassium (Cozaar) 12.5 mg PO DAILY [facility] Last Admin: 09/19/17 08:37 Dose: 12.5 mg Metoprolol Succinate (Toprol Xl) 25 mg PO DAILY [facility] Last Admin: 09/19/17 08:39 Dose: 25 mg Multivitamins/Minerals (Therapeutic-M Tab) 1 tab PO DAILY [facility] Last Admin: 09/19/17 08:39 Dose: 1 tab Nicotine (Nicoderm Cq) 1 patch TD DAILY [facility] Last Admin: 09/19/17 08:38 Dose: 1 patch Nystatin (Nystatin Oral Susp) 5 ml PO QID [facility] Last Admin: 09/19/17 12:34 Dose: 5 ml Octreotide Acetate (Sandostatin) 100 mcg SC Q12 [facility] Last Admin: 09/19/17 08:38 Dose: 100 mcg Pantoprazole Sodium (Protonix Ec Tab) 40 mg PO DAILY [facility] Last Admin: 09/19/17 08:38 Dose: 40 mg Prednisone (Prednisone Tab) 10 mg PO DAILY [facility] Last Admin: 09/19/17 08:38 Dose: 10 mg Fluticasone/Salmeterol (Advair Diskus 250/50) 1 puff IH Q12 [facility] Sodium Bicarbonate (Sodium Bicarbonate Tab) 650 mg PO Q12 [facility] Last Admin: 09/19/17 08:39 Dose: 650 mg Zolpidem Tartrate (Ambien) 5 mg PO HS [facility] Last Admin: 09/19/17 00:32 Dose: 5 mg - Labs Labs: 09/19/17 07:04 09/19/17 07:04 PT 10.6 Seconds (9.8-13.1) 09/15/17 05:45 INR 1.0 (0.9-1.2) 09/15/17 05:45
--- NOTE | 2017-09-19 22:14 | CP.PCM.PN ---
Objective - Vital Signs/Intake and Output Vital Signs (last 24 hours): Temp Pulse Resp BP Pulse Ox 98.1 F 71 20 127/67 91 L 09/19/17 20:24 09/19/17 20:24 09/19/17 20:24 09/19/17 20:24 09/19/17 20:24 - Medications Medications: Current Medications Albuterol/Ipratropium (Duoneb 3 Mg/0.5 Mg (3 Ml) Ud) 3 ml INH RQ4 [facility] Last Admin: 09/19/17 21:08 Dose: 3 ml Alprazolam (Xanax) 0.5 mg PO Q8@0600,1400,2200 [facility] Last Admin: 09/19/17 14:11 Dose: 0.5 mg Aspirin (Ecotrin) 81 mg PO DAILY [facility] Last Admin: 09/19/17 08:37 Dose: 81 mg Atorvastatin Calcium (Lipitor) 20 mg PO DAILY@2100 [facility] Last Admin: 09/19/17 21:26 Dose: 20 mg Calcium/Vitamin D (Oyster Shell Calcium/Vitamin D 500 Mg-200 Iu) 1 tab PO DAILY [facility] Last Admin: 09/19/17 08:38 Dose: 1 tab Clopidogrel Bisulfate (Plavix) 75 mg PO DAILY [facility] Last Admin: 09/19/17 08:38 Dose: 75 mg Cyanocobalamin (Vitamin B12 1000 Mcg/Ml Inj) 1,000 mcg IM Q2W [facility] Ergocalciferol (Drisdol 50,000 Intl Units Cap) 1 cap PO MO [facility] Last Admin: 09/15/17 01:36 Dose: Not Given Ferrous Sulfate (Feosol) 325 mg PO BID [facility] Last Admin: 09/19/17 16:50 Dose: 325 mg Fluticasone Propionate (Flonase) 2 spr PRATIBHA HS PRN PRN Reason: Allergy symptoms Last Admin: 09/11/17 16:39 Dose: 2 spr Hydromorphone HCl (Dilaudid) 1 mg PO Q8 PRN PRN Reason: for pain 8-10 Last Admin: 09/18/17 23:21 Dose: 1 mg Losartan Potassium (Cozaar) 12.5 mg PO DAILY [facility] Last Admin: 09/19/17 08:37 Dose: 12.5 mg Metoprolol Succinate (Toprol Xl) 25 mg PO DAILY [facility] Last Admin: 09/19/17 08:39 Dose: 25 mg Multivitamins/Minerals (Therapeutic-M Tab) 1 tab PO DAILY [facility] Last Admin: 09/19/17 08:39 Dose: 1 tab Nicotine (Nicoderm Cq) 1 patch TD DAILY [facility] Last Admin: 09/19/17 08:38 Dose: 1 patch Nystatin (Nystatin Oral Susp) 5 ml PO QID [facility] Last Admin: 09/19/17 21:48 Dose: 5 ml Octreotide Acetate (Sandostatin) 100 mcg SC Q12 [facility] Last Admin: 09/19/17 21:26 Dose: 100 mcg Pantoprazole Sodium (Protonix Ec Tab) 40 mg PO DAILY [facility] Last Admin: 09/19/17 08:38 Dose: 40 mg Prednisone (Prednisone Tab) 10 mg PO DAILY [facility] Last Admin: 09/19/17 08:38 Dose: 10 mg Fluticasone/Salmeterol (Advair Diskus 250/50) 1 puff IH Q12 [facility] Last Admin: 09/19/17 21:25 Dose: 1 puff Sodium Bicarbonate (Sodium Bicarbonate Tab) 650 mg PO Q12 [facility] Last Admin: 09/19/17 21:27 Dose: 650 mg Zolpidem Tartrate (Ambien) 5 mg PO HS [facility] Last Admin: 09/19/17 00:32 Dose: 5 mg - Labs Labs: 09/19/17 07:04 09/19/17 07:04 PT 10.6 Seconds (9.8-13.1) 09/15/17 05:45 INR 1.0 (0.9-1.2) 09/15/17 05:45
[2017-09-20] MEDS: Albuterol-Ipratrop 3 mg / 0.5 (3 ml) UD INH SCH ×7 (00:02→23:38)
[2017-09-20] MEDS: Fluticasone-Salmeterol 250-50mcg Diskus IH SCH ×2 (08:18→20:29)
[2017-09-20] MEDS: Calcium-Vit D 500 mg-200 Units Tab UD PO SCH (08:19)
[2017-09-20] MEDS: Multivitamin With Minerals Tab PO SCH (08:19)
[2017-09-20] MEDS: Nystatin 100,000 Units/ml Oral Susp 5 ml UD PO SCH ×4 (08:20→21:22)
[2017-09-20] MEDS: Pantoprazole 40 mg EC Tab PO SCH (08:21)
[2017-09-20] MEDS: Metoprolol Succinate 25 mg XL Tab PO SCH (08:21)
--- NOTE | 2017-09-20 16:42 | CP.PCM.PN ---
Objective - Vital Signs/Intake and Output Vital Signs (last 24 hours): Temp Pulse Resp BP Pulse Ox 97.7 F 72 20 152/76 H 97 09/20/17 15:41 09/20/17 15:41 09/20/17 15:41 09/20/17 15:41 09/20/17 15:41 - Medications Medications: Current Medications Albuterol/Ipratropium (Duoneb 3 Mg/0.5 Mg (3 Ml) Ud) 3 ml INH RQ4 [facility] Last Admin: 09/20/17 15:56 Dose: 3 ml Alprazolam (Xanax) 0.5 mg PO Q8@0600,1400,2200 [facility] Last Admin: 09/20/17 13:55 Dose: 0.5 mg Aspirin (Ecotrin) 81 mg PO DAILY [facility] Last Admin: 09/20/17 08:19 Dose: 81 mg Atorvastatin Calcium (Lipitor) 20 mg PO DAILY@2100 [facility] Last Admin: 09/19/17 21:26 Dose: 20 mg Calcium/Vitamin D (Oyster Shell Calcium/Vitamin D 500 Mg-200 Iu) 1 tab PO DAILY [facility] Last Admin: 09/20/17 08:19 Dose: 1 tab Clopidogrel Bisulfate (Plavix) 75 mg PO DAILY [facility] Last Admin: 09/20/17 08:18 Dose: 75 mg Cyanocobalamin (Vitamin B12 1000 Mcg/Ml Inj) 1,000 mcg IM Q2W [facility] Ergocalciferol (Drisdol 50,000 Intl Units Cap) 1 cap PO MO [facility] Last Admin: 09/15/17 01:36 Dose: Not Given Ferrous Sulfate (Feosol) 325 mg PO BID [facility] Last Admin: 09/20/17 08:18 Dose: 325 mg Fluticasone Propionate (Flonase) 2 spr PRATIBHA HS PRN PRN Reason: Allergy symptoms Last Admin: 09/11/17 16:39 Dose: 2 spr Hydromorphone HCl (Dilaudid) 1 mg PO Q8 PRN PRN Reason: for pain 8-10 Last Admin: 09/19/17 23:18 Dose: 1 mg Losartan Potassium (Cozaar) 12.5 mg PO DAILY [facility] Last Admin: 09/20/17 08:22 Dose: 12.5 mg Metoprolol Succinate (Toprol Xl) 25 mg PO DAILY [facility] Last Admin: 09/20/17 08:21 Dose: 25 mg Multivitamins/Minerals (Therapeutic-M Tab) 1 tab PO DAILY [facility] Last Admin: 09/20/17 08:19 Dose: 1 tab Nicotine (Nicoderm Cq) 1 patch TD DAILY [facility] Last Admin: 09/20/17 08:20 Dose: 1 patch Nystatin (Nystatin Oral Susp) 5 ml PO QID [facility] Last Admin: 09/20/17 12:36 Dose: 5 ml Octreotide Acetate (Sandostatin) 100 mcg SC Q12 [facility] Last Admin: 09/20/17 08:24 Dose: 100 mcg Pantoprazole Sodium (Protonix Ec Tab) 40 mg PO DAILY [facility] Last Admin: 09/20/17 08:21 Dose: 40 mg Prednisone (Prednisone Tab) 10 mg PO DAILY [facility] Last Admin: 09/20/17 08:19 Dose: 10 mg Fluticasone/Salmeterol (Advair Diskus 250/50) 1 puff IH Q12 [facility] Last Admin: 09/20/17 08:18 Dose: 1 puff Sodium Bicarbonate (Sodium Bicarbonate Tab) 650 mg PO Q12 [facility] Last Admin: 09/20/17 08:19 Dose: 650 mg Zolpidem Tartrate (Ambien) 5 mg PO HS [facility] Last Admin: 09/20/17 00:23 Dose: 5 mg - Labs Labs: 09/19/17 07:04 09/19/17 07:04 PT 10.6 Seconds (9.8-13.1) 09/15/17 05:45 INR 1.0 (0.9-1.2) 09/15/17 05:45
--- NOTE | 2017-09-20 18:24 | CP.PCM.PN ---
Subjective - Date & Time of Evaluation Date of Evaluation: 09/20/17 Time of Evaluation: 17:00 - Subjective Subjective: No complaints, feeling better. Objective - Vital Signs/Intake and Output Vital Signs (last 24 hours): Temp Pulse Resp BP Pulse Ox 97.7 F 72 20 152/76 H 97 09/20/17 15:41 09/20/17 15:41 09/20/17 15:41 09/20/17 15:41 09/20/17 15:41 - Medications Medications: Current Medications Albuterol/Ipratropium (Duoneb 3 Mg/0.5 Mg (3 Ml) Ud) 3 ml INH RQ4 [facility] Last Admin: 09/20/17 15:56 Dose: 3 ml Alprazolam (Xanax) 0.5 mg PO Q8@0600,1400,2200 [facility] Last Admin: 09/20/17 13:55 Dose: 0.5 mg Aspirin (Ecotrin) 81 mg PO DAILY [facility] Last Admin: 09/20/17 08:19 Dose: 81 mg Atorvastatin Calcium (Lipitor) 20 mg PO DAILY@2100 [facility] Last Admin: 09/19/17 21:26 Dose: 20 mg Calcium/Vitamin D (Oyster Shell Calcium/Vitamin D 500 Mg-200 Iu) 1 tab PO DAILY [facility] Last Admin: 09/20/17 08:19 Dose: 1 tab Clopidogrel Bisulfate (Plavix) 75 mg PO DAILY [facility] Last Admin: 09/20/17 08:18 Dose: 75 mg Cyanocobalamin (Vitamin B12 1000 Mcg/Ml Inj) 1,000 mcg IM Q2W [facility] Ergocalciferol (Drisdol 50,000 Intl Units Cap) 1 cap PO MO [facility] Last Admin: 09/15/17 01:36 Dose: Not Given Ferrous Sulfate (Feosol) 325 mg PO BID [facility] Last Admin: 09/20/17 17:11 Dose: 325 mg Fluticasone Propionate (Flonase) 2 spr PRATIBHA HS PRN PRN Reason: Allergy symptoms Last Admin: 09/11/17 16:39 Dose: 2 spr Hydromorphone HCl (Dilaudid) 1 mg PO Q8 PRN PRN Reason: for pain 8-10 Last Admin: 09/19/17 23:18 Dose: 1 mg Losartan Potassium (Cozaar) 12.5 mg PO DAILY [facility] Last Admin: 09/20/17 08:22 Dose: 12.5 mg Metoprolol Succinate (Toprol Xl) 25 mg PO DAILY [facility] Last Admin: 09/20/17 08:21 Dose: 25 mg Multivitamins/Minerals (Therapeutic-M Tab) 1 tab PO DAILY [facility] Last Admin: 09/20/17 08:19 Dose: 1 tab Nicotine (Nicoderm Cq) 1 patch TD DAILY [facility] Last Admin: 09/20/17 08:20 Dose: 1 patch Nystatin (Nystatin Oral Susp) 5 ml PO QID [facility] Last Admin: 09/20/17 17:11 Dose: 5 ml Octreotide Acetate (Sandostatin) 100 mcg SC Q12 [facility] Last Admin: 09/20/17 08:24 Dose: 100 mcg Pantoprazole Sodium (Protonix Ec Tab) 40 mg PO DAILY [facility] Last Admin: 09/20/17 08:21 Dose: 40 mg Prednisone (Prednisone Tab) 10 mg PO DAILY [facility] Last Admin: 09/20/17 08:19 Dose: 10 mg Fluticasone/Salmeterol (Advair Diskus 250/50) 1 puff IH Q12 [facility] Last Admin: 09/20/17 08:18 Dose: 1 puff Sodium Bicarbonate (Sodium Bicarbonate Tab) 650 mg PO Q12 [facility] Last Admin: 09/20/17 08:19 Dose: 650 mg Zolpidem Tartrate (Ambien) 5 mg PO HS [facility] Last Admin: 09/20/17 00:23 Dose: 5 mg - Labs Labs: 09/19/17 07:04 09/19/17 07:04 PT 10.6 Seconds (9.8-13.1) 09/15/17 05:45 INR 1.0 (0.9-1.2) 09/15/17 05:45 - Head Exam Head Exam: ATRAUMATIC - Eye Exam Eye Exam: Normal appearance - ENT Exam ENT Exam: Mucous Membranes Dry - Respiratory Exam Respiratory Exam: NORMAL BREATHING PATTERN - Cardiovascular Exam Cardiovascular Exam: +S1, +S2 - GI/Abdominal Exam GI & Abdominal Exam: Normal Bowel Sounds Assessment and Plan (1) Anemia Assessment & Plan: counts stable chronic disease, hematoma bleeding s/p pseudo aneurysm injection s/p PRBC transfusion Status: Acute
[2017-09-21] MEDS: Albuterol-Ipratrop 3 mg / 0.5 (3 ml) UD INH SCH ×6 (03:56→23:58)
[2017-09-21] MEDS: Fluticasone-Salmeterol 250-50mcg Diskus IH SCH ×2 (08:02→22:40)
[2017-09-21] MEDS: Pantoprazole 40 mg EC Tab PO SCH (08:04)
[2017-09-21] MEDS: Nystatin 100,000 Units/ml Oral Susp 5 ml UD PO SCH ×4 (08:04→22:41)
[2017-09-21] MEDS: Calcium-Vit D 500 mg-200 Units Tab UD PO SCH (08:04)
[2017-09-21] MEDS: Multivitamin With Minerals Tab PO SCH (08:04)
[2017-09-21] MEDS: Metoprolol Succinate 25 mg XL Tab PO SCH (08:05)
--- NOTE | 2017-09-21 09:16 | PN ---
DATE: 09/21/2017 SUBJECTIVE: The patient is seen and examined. Interim events noted. The patient remains in Transitional Care Unit. She feels much better. Leg pain is present, but controlled. She is able to do her ADLs with assistance and walker. PHYSICAL EXAMINATION: GENERAL: The patient is in no acute distress. VITAL SIGNS: Stable. HEART: S1 and S2, normal and regular. LUNGS: Good bilateral air exchange. ABDOMEN: Soft and nontender. EXTREMITIES: No edema. No calf swelling. No tenderness. No acute ischemia. CENTRAL NERVOUS SYSTEM: Exam is essentially unchanged. Hematoma on the leg is healing nicely. Ecchymosis is also fading. IMPRESSION AND PLAN: Overall, the patient's general medical condition is stable and improving. Plan as ordered. Porfirio Munson MD
--- NOTE | 2017-09-21 10:42 | CP.PCM.PN ---
Subjective - Date & Time of Evaluation Date of Evaluation: 09/21/17 Time of Evaluation: 10:49 - Subjective Subjective: FEELS BETTER NO CHEST PAINS/SOB Objective - Vital Signs/Intake and Output Vital Signs (last 24 hours): Temp Pulse Resp BP Pulse Ox 97.2 F L 74 20 120/61 95 09/21/17 07:59 09/21/17 08:05 09/21/17 07:59 09/21/17 08:05 09/21/17 07:59 - Medications Medications: Current Medications Albuterol/Ipratropium (Duoneb 3 Mg/0.5 Mg (3 Ml) Ud) 3 ml INH RQ4 [facility] Last Admin: 09/21/17 07:24 Dose: 3 ml Alprazolam (Xanax) 0.5 mg PO Q8@0600,1400,2200 [facility] Last Admin: 09/21/17 06:17 Dose: 0.5 mg Aspirin (Ecotrin) 81 mg PO DAILY [facility] Last Admin: 09/21/17 08:03 Dose: 81 mg Atorvastatin Calcium (Lipitor) 20 mg PO DAILY@2100 [facility] Last Admin: 09/20/17 20:27 Dose: 20 mg Calcium/Vitamin D (Oyster Shell Calcium/Vitamin D 500 Mg-200 Iu) 1 tab PO DAILY [facility] Last Admin: 09/21/17 08:04 Dose: 1 tab Clopidogrel Bisulfate (Plavix) 75 mg PO DAILY [facility] Last Admin: 09/21/17 08:04 Dose: 75 mg Cyanocobalamin (Vitamin B12 1000 Mcg/Ml Inj) 1,000 mcg IM Q2W [facility] Ergocalciferol (Drisdol 50,000 Intl Units Cap) 1 cap PO MO [facility] Last Admin: 09/15/17 01:36 Dose: Not Given Ferrous Sulfate (Feosol) 325 mg PO BID [facility] Last Admin: 09/21/17 08:03 Dose: 325 mg Fluticasone Propionate (Flonase) 2 spr PRATIBHA HS PRN PRN Reason: Allergy symptoms Last Admin: 09/11/17 16:39 Dose: 2 spr Hydromorphone HCl (Dilaudid) 1 mg PO Q8 PRN PRN Reason: for pain 8-10 Last Admin: 09/20/17 23:25 Dose: 1 mg Losartan Potassium (Cozaar) 12.5 mg PO DAILY [facility] Last Admin: 09/21/17 08:03 Dose: 12.5 mg Metoprolol Succinate (Toprol Xl) 25 mg PO DAILY [facility] Last Admin: 09/21/17 08:05 Dose: 25 mg Multivitamins/Minerals (Therapeutic-M Tab) 1 tab PO DAILY [facility] Last Admin: 09/21/17 08:04 Dose: 1 tab Nicotine (Nicoderm Cq) 1 patch TD DAILY [facility] Last Admin: 09/21/17 08:03 Dose: 1 patch Nystatin (Nystatin Oral Susp) 5 ml PO QID [facility] Last Admin: 09/21/17 08:04 Dose: 5 ml Octreotide Acetate (Sandostatin) 100 mcg SC Q12 [facility] Last Admin: 09/21/17 08:02 Dose: 100 mcg Pantoprazole Sodium (Protonix Ec Tab) 40 mg PO DAILY [facility] Last Admin: 09/21/17 08:04 Dose: 40 mg Prednisone (Prednisone Tab) 10 mg PO DAILY [facility] Last Admin: 09/21/17 08:04 Dose: 10 mg Fluticasone/Salmeterol (Advair Diskus 250/50) 1 puff IH Q12 [facility] Last Admin: 09/21/17 08:02 Dose: 1 puff Sodium Bicarbonate (Sodium Bicarbonate Tab) 650 mg PO Q12 [facility] Last Admin: 09/21/17 08:04 Dose: 650 mg Sodium Chloride (Sodium Chloride Tab) 1 gm PO BID [facility] Last Admin: 09/21/17 08:05 Dose: 1 gm Zolpidem Tartrate (Ambien) 5 mg PO HS [facility] Last Admin: 09/20/17 22:46 Dose: 5 mg - Labs Labs: 09/19/17 07:04 09/19/17 07:04 PT 10.6 Seconds (9.8-13.1) 09/15/17 05:45 INR 1.0 (0.9-1.2) 09/15/17 05:45 - Constitutional Appears: Well - Head Exam Head Exam: ATRAUMATIC, NORMAL INSPECTION, NORMOCEPHALIC - Eye Exam Eye Exam: EOMI, Normal appearance, PERRL Pupil Exam: NORMAL ACCOMODATION, PERRL - ENT Exam ENT Exam: Mucous Membranes Moist, Normal Exam - Neck Exam Neck Exam: Full ROM, Normal Inspection. absent: Lymphadenopathy - Respiratory Exam Respiratory Exam: Clear to Ausculation Bilateral, NORMAL BREATHING PATTERN - Cardiovascular Exam Cardiovascular Exam: REGULAR RHYTHM, +S1, +S2. absent: Murmur - GI/Abdominal Exam GI & Abdominal Exam: Soft, Normal Bowel Sounds. absent: Tenderness - Rectal Exam Rectal Exam: NORMAL INSPECTION - Extremities Exam Extremities Exam: Full ROM, Normal Capillary Refill, Normal Inspection. absent : Joint Swelling, Pedal Edema - Back Exam Back Exam: NORMAL INSPECTION - Neurological Exam Neurological Exam: Alert, Awake, CN II-XII Intact, Normal Gait, Oriented x3 - Psychiatric Exam Psychiatric exam: Normal Affect, Normal Mood - Skin Skin Exam: Dry, Intact, Normal Color, Warm Assessment and Plan - Assessment and Plan (Free Text) Assessment: COPD S/P AR ANEMIA Plan: CONTINUE CURRENT RX FOR SUBACUTE CARE
[2017-09-22] MEDS: Ergocalciferol 50,000 Intl Units Cap PO SCH (01:12)
[2017-09-22] MEDS: Albuterol-Ipratrop 3 mg / 0.5 (3 ml) UD INH SCH ×2 (04:00→07:43)
[2017-09-22 07:39] VITALS: BP 136/65; PULSE 76; RESP 18; TEMP 98.2; O2SAT 98
[2017-09-22 08:00] LABS: HEMOGLOBIN 10.9 g/dL (12.0-16.0); MEAN CELL VOLUME 93.9 fl (81.0-99.0); MEAN CORPUSCULAR HGB CONC 35.1 g/dL (33.0-37.0); RBC 3.32 Mil/uL (3.80-5.20); RED CELL DISTRIBUTION WIDTH 14.9 % (11.5-14.5); WHITE BLOOD COUNT 12.1 K/uL (4.8-10.8)
[2017-09-22] MEDS: Multivitamin With Minerals Tab PO SCH (08:05)
[2017-09-22] MEDS: Fluticasone-Salmeterol 250-50mcg Diskus IH SCH (08:05)
[2017-09-22] MEDS: Nystatin 100,000 Units/ml Oral Susp 5 ml UD PO SCH (08:05)
[2017-09-22] MEDS: Calcium-Vit D 500 mg-200 Units Tab UD PO SCH (08:06)
[2017-09-22] MEDS: Metoprolol Succinate 25 mg XL Tab PO SCH (08:06)
[2017-09-22] MEDS: Pantoprazole 40 mg EC Tab PO SCH (08:07)
[2017-09-22 08:12] LABS: ALB/GLOB RATIO 1.1 (1.0-2.1); ALBUMIN 3.1 g/dL (3.5-5.0); ALT/SGPT 65 U/L (9-52); AST/SGOT 46 U/L (14-36); BLOOD UREA NITROGEN 10 mg/dl (7-17); CALCIUM 9.1 mg/dL (8.4-10.2); GFR AFRICAN-AMERICAN > 60; GFR NON-AFRICAN AMERICAN > 60
--- NOTE | 2017-09-22 09:38 | CP.PCM.PN ---
Subjective - Date & Time of Evaluation Date of Evaluation: 09/22/17 Time of Evaluation: 09:00 - Subjective Subjective: NO CHEST PAIN BREATHING WELL STILL FEELS WEAK Objective - Vital Signs/Intake and Output Vital Signs (last 24 hours): Temp Pulse Resp BP Pulse Ox 98.2 F 76 18 136/65 98 09/22/17 07:38 09/22/17 08:06 09/22/17 07:38 09/22/17 08:06 09/22/17 07:38 - Medications Medications: Current Medications Albuterol/Ipratropium (Duoneb 3 Mg/0.5 Mg (3 Ml) Ud) 3 ml INH RQ4 [facility] Last Admin: 09/22/17 07:43 Dose: 3 ml Alprazolam (Xanax) 0.5 mg PO Q8@0600,1400,2200 [facility] Last Admin: 09/22/17 06:06 Dose: 0.5 mg Aspirin (Ecotrin) 81 mg PO DAILY [facility] Last Admin: 09/22/17 08:06 Dose: 81 mg Atorvastatin Calcium (Lipitor) 20 mg PO DAILY@2100 [facility] Last Admin: 09/21/17 22:41 Dose: 20 mg Calcium/Vitamin D (Oyster Shell Calcium/Vitamin D 500 Mg-200 Iu) 1 tab PO DAILY [facility] Last Admin: 09/22/17 08:06 Dose: 1 tab Clopidogrel Bisulfate (Plavix) 75 mg PO DAILY [facility] Last Admin: 09/22/17 08:07 Dose: 75 mg Cyanocobalamin (Vitamin B12 1000 Mcg/Ml Inj) 1,000 mcg IM Q2W [facility] Ergocalciferol (Drisdol 50,000 Intl Units Cap) 1 cap PO MO [facility] Last Admin: 09/22/17 01:12 Dose: 1 cap Ferrous Sulfate (Feosol) 325 mg PO BID [facility] Last Admin: 09/22/17 08:06 Dose: 325 mg Fluticasone Propionate (Flonase) 2 spr PRATIBHA HS PRN PRN Reason: Allergy symptoms Last Admin: 09/11/17 16:39 Dose: 2 spr Hydromorphone HCl (Dilaudid) 1 mg PO Q8 PRN PRN Reason: for pain 8-10 Last Admin: 09/21/17 23:29 Dose: 1 mg Losartan Potassium (Cozaar) 12.5 mg PO DAILY [facility] Last Admin: 09/22/17 08:05 Dose: 12.5 mg Metoprolol Succinate (Toprol Xl) 25 mg PO DAILY [facility] Last Admin: 09/22/17 08:06 Dose: 25 mg Multivitamins/Minerals (Therapeutic-M Tab) 1 tab PO DAILY [facility] Last Admin: 09/22/17 08:05 Dose: 1 tab Nicotine (Nicoderm Cq) 1 patch TD DAILY [facility] Last Admin: 09/22/17 08:05 Dose: 1 patch Nystatin (Nystatin Oral Susp) 5 ml PO QID [facility] Last Admin: 09/22/17 08:05 Dose: 5 ml Octreotide Acetate (Sandostatin) 100 mcg SC Q12 [facility] Last Admin: 09/22/17 09:14 Dose: 100 mcg Pantoprazole Sodium (Protonix Ec Tab) 40 mg PO DAILY [facility] Last Admin: 09/22/17 08:07 Dose: 40 mg Prednisone (Prednisone Tab) 10 mg PO DAILY [facility] Last Admin: 09/22/17 08:06 Dose: 10 mg Fluticasone/Salmeterol (Advair Diskus 250/50) 1 puff IH Q12 [facility] Last Admin: 09/22/17 08:05 Dose: 1 puff Sodium Bicarbonate (Sodium Bicarbonate Tab) 650 mg PO Q12 [facility] Last Admin: 09/22/17 08:06 Dose: 650 mg Sodium Chloride (Sodium Chloride Tab) 1 gm PO BID [facility] Last Admin: 09/22/17 08:06 Dose: 1 gm Zolpidem Tartrate (Ambien) 5 mg PO HS [facility] Last Admin: 09/22/17 00:19 Dose: 5 mg - Labs Labs: 09/22/17 07:50 09/22/17 07:50 PT 10.6 Seconds (9.8-13.1) 09/15/17 05:45 INR 1.0 (0.9-1.2) 09/15/17 05:45 - Respiratory Exam Respiratory Exam: Clear to Ausculation Bilateral - Cardiovascular Exam Cardiovascular Exam: REGULAR RHYTHM, +S1, +S2 - Extremities Exam Extremities Exam: Normal Inspection Assessment and Plan - Assessment and Plan (Free Text) Assessment: CAD WITH RECENT AWMI HYPERTENSION COPD Plan: CONTINUE ASPIRIN, CLOPIDOGREL, LOSARTAN, METOPROLOL, ATORVASTATIN, BRONCHODILATORS FOR DISCHARGE TO [facility]
--- NOTE | 2017-09-23 09:34 | PN ---
DATE: 09/22/2017 SUBJECTIVE: The patient is seen and examined. Interim events noted. The patient remains in Transitional Care Unit. Pulmonary followup and interventions noted and appreciated. The patient feels better. No new complaints. No chest pain or shortness of breath. Complains of generalized weakness. Leg pain has improved. PHYSICAL EXAMINATION: GENERAL: The patient is in no acute distress. VITAL SIGNS: Stable. Physical examination is essentially unchanged. DIAGNOSTIC DATA: Available diagnostic data reviewed. PLAN: Overall, the patient's general medical condition is stable. The patient is possible transfer to subacute rehab. Plan as ordered. Porfirio Munson MD
== END 2017-09-22 11:26 | DRG 280 ==
LOC: H.TCU 23:49
PROVIDERS: ADMIT Internal Medicine; ATTEND Internal Medicine
PROC: 30233N1 Transfusion of Nonautologous Red Blood Cells into Peripheral Vein, Percutaneous Approach (ICD-10-PCS; principal; 2017-09-10)
PROC: 3E0F7GC Introduction of Other Therapeutic Substance into Respiratory Tract, Via Natural or Artificial Opening (ICD-10-PCS; 2017-09-10)
PROC: F08Z4FZ Home Management Treatment using Assistive, Adaptive, Supportive or Protective Equipment (ICD-10-PCS; 2017-09-10)
PROC: F07M6FZ Therapeutic Exercise Treatment of Musculoskeletal System - Whole Body using Assistive, Adaptive, Supportive or Protective Equipment (ICD-10-PCS; 2017-09-10)
DX: I21.09 ST elevation (STEMI) myocardial infarction involving other coronary artery of anterior wall (principal); J96.90 Respiratory failure, unspecified, unspecified whether with hypoxia or hypercapnia; J44.1 Chronic obstructive pulmonary disease with (acute) exacerbation; D62 Acute posthemorrhagic anemia; I11.0 Hypertensive heart disease with heart failure; E87.1 Hypo-osmolality and hyponatremia; I50.20 Unspecified systolic (congestive) heart failure; E78.5 Hyperlipidemia, unspecified; F17.210 Nicotine dependence, cigarettes, uncomplicated; F41.9 Anxiety disorder, unspecified; I25.10 Atherosclerotic heart disease of native coronary artery without angina pectoris; M79.7 Fibromyalgia; S30.1XXD Contusion of abdominal wall, subsequent encounter; Y84.0 Cardiac catheterization as the cause of abnormal reaction of the patient, or of later complication, without mention of misadventure at the time of the procedure; Y82.9 Unspecified medical devices associated with adverse incidents; S70.11XD Contusion of right thigh, subsequent encounter; Z82.3 Family history of stroke; Z90.49 Acquired absence of other specified parts of digestive tract; Z90.710 Acquired absence of both cervix and uterus; Z93.3 Colostomy status; I72.4 Aneurysm of artery of lower extremity; J02.9 Acute pharyngitis, unspecified

== ENCOUNTER 2017-09-15 09:47 | Day surgery (SDC) | payer MEDICARE, OTHER ==
[2017-09-15] MEDS ORDERED: Thrombin Topical 5,000 Int Units Spray Kit ONE ×2 (11:04→11:44)
[2017-09-15] MEDS ORDERED: Lidocaine 1% w Epi 1:100,000 Inj ONE (11:44)
[2017-09-15] MEDS ORDERED: Bupivacaine 0.5% Inj(30mL) ONE (11:44)
[2017-09-15] MEDS ORDERED: Lidocaine 1% Inj (20ml) ONE (11:44)
[2017-09-15 11:51] VITALS: BMI 22.4
[2017-09-15] MEDS ORDERED: Thrombin Topical 5,000 Int Units Spray Kit TOP ONE ×2 (12:38→12:55)
[2017-09-15] MEDS ORDERED: Lidocaine 1% Inj (20ml) IJ ONE (12:55)
[2017-09-15 13:40] VITALS: RESP 18
[2017-09-15 15:26] VITALS: PULSE 80
[2017-09-15 15:53] VITALS: BP 133/58; TEMP 97.8; O2SAT 97
--- NOTE | 2017-10-24 08:19 | OP ---
PROCEDURE DATE: 09/15/2017 PREOPERATIVE DIAGNOSIS: Pseudoaneurysm, right groin. POSTOPERATIVE DIAGNOSES: Pseudoaneurysm, right groin and pseudoaneurysm right common femoral artery. PROCEDURE: Thrombin injection, right femoral artery pseudoaneurysm. SURGEON: Charlie Whitaker MD ANESTHESIA: Local anesthesia. COMPLICATIONS: None. INDICATIONS: Mrs. Kaiser is a 67-year-old female patient who underwent cardiac cath and postoperatively she developed small pseudoaneurysm. The patient was on antiplatelet therapy. The pseudoaneurysm observed and has not clotted, so brought her for the operating room for the injection thrombin to the aneurysm. Risks and benefits were explained to the family and the patient and they agreed to proceed. DESCRIPTION OF PROCEDURE: The patient came to the operating room and she was lying in a supine position. She was prepped and draped in usual sterile fashion. Local anesthesia, 1% lidocaine to infiltrate the skin. Ultrasound guided, we identified the pseudoaneurysm and the small connection to the artery which has been excised and we used needle to spray the thrombin and ultrasound guided, we injected pseudoaneurysm about 0.3 mm. Going thrombosis incidentally ____ was injected to close to neck and the pseudoaneurysm will no flow had detected anymore. Pressure was applied to the area for few minute and after that sterile dressing applied. The patient tolerated the procedure well. No complications. Charlie Whitaker MD
== END 2017-09-15 16:35 ==
LOC: H.SDS 09:47
PROVIDERS: ATTEND Surgery
DX: I72.4 Aneurysm of artery of lower extremity (principal)
CPT/HCPCS: 36002; 96374; C1894; J7030

== ENCOUNTER 2017-09-16 11:28 | Day surgery (SDC) | payer MEDICARE, OTHER ==
[2017-09-15 11:51] VITALS: BMI 22.4
[2017-09-16 11:56] VITALS: RESP 20
[2017-09-16] MEDS ORDERED: Iodixanol 320 mg/ml 50 ml Sol IV ONE (13:10)
[2017-09-16 15:55] VITALS: BP 138/62; PULSE 79; TEMP 97.9; O2SAT 99
--- NOTE | 2017-09-17 10:43 | VASCULAR ---
PROCEDURE: Date of study: 09/16/2017 Procedure: 1. Port Evaluation 2. Superior vena cavagram. Medications: None Fluoroscopic time: 15 seconds Radiation: 2.4 mGy Blood loss: 0 HISTORY: No blood return from left internal jugular vein port. TECHNIQUE: History and physical performed prior to the procedure. Following formed consent the procedure time-out, the patient placed supine on interventional table and the left neck and chest were prepped and draped in the usual sterile fashion. A fluoroscopic image showed a left subclavian vein port catheter with tip in the SVC. Contrast injected through the Bland needle a showed an intact port catheter. No fibrin sheath is present at end of the port catheter. A superior vena cavagram was performed that showed no stenosis in the SVC. The port flushes easily and there was good blood return. The port was flushed and locked with heparin. IMPRESSION: Left subclavian vein port is intact and may be used.
== END 2017-09-16 16:00 | disposition home or self-care (01) ==
LOC: H.OPSURG 11:28
PROVIDERS: ATTEND Internal Medicine
DX: Z46.89 Encounter for fitting and adjustment of other specified devices (principal)
CPT/HCPCS: 37799; Q9967

== ENCOUNTER 2018-07-23 00:02 | Inpatient (IN) | payer MEDICARE, OTHER ==
[2018-07-23 00:02] VITALS: BMI 22.4
[2018-07-23] MEDS ORDERED: Albuterol-Ipratrop 3 mg / 0.5 (3 ml) UD INH STA ×3 (00:22→00:29)
[2018-07-23 00:49] LABS: BASO % 0.2 % (0.0-2.0); EOS % 0.1 % (0.0-4.0); HEMOGLOBIN 13.5 g/dL (12.0-16.0); LYMPH # 0.4 K/uL (1.0-4.3); LYMPH % 4.5 % (20.0-40.0); MEAN CELL VOLUME 100.8 fl (81.0-99.0); MEAN CORPUSCULAR HEMOGLOBIN 33.8 pg (27.0-31.0); MEAN CORPUSCULAR HGB CONC 33.6 g/dL (33.0-37.0); MEAN PLATELET VOLUME 7.4 fl (7.2-11.7); MONO # 0.5 K/uL (0.0-0.8); MONO % 5.6 % (0.0-10.0); NEUT # 8.3 K/uL (1.8-7.0); NEUT % 89.6 % (50.0-75.0); PLATELET COUNT 165 K/uL (130-400); WHITE BLOOD COUNT 9.2 K/uL (4.8-10.8)
[2018-07-23 01:09] LABS: ABG ALLEN TEST YES; ARTERIAL BLOOD GAS HCO3 23.7 mmol/L (21-28); ARTERIAL BLOOD GAS PCO2 52 mm/Hg (35-45); ARTERIAL BLOOD GAS PO2 215 mm/Hg (80-100); ARTERIAL BLOOD GAS TCO2 27.2 mmol/L (22-28)
[2018-07-23 01:11] LABS: B-TYPE NATRIURETIC PEPTIDE 840 pg/ml (0-900); BLOOD UREA NITROGEN 12 mg/dl (7-17); CALCIUM 9.4 mg/dL (8.4-10.2); GFR NON-AFRICAN AMERICAN > 60
--- NOTE | 2018-07-23 02:01 | ED PDOC ---
HPI: SOB/CHF/COPD Time Seen by Provider: 07/23/18 00:16 Chief Complaint (Nursing): Shortness Of Breath Chief Complaint (Provider): Shortness Of Breath History Per: Patient History/Exam Limitations: no limitations Additional Complaint(s): 68 y/o female with PMHx of COPD, Subclavian steal syndrome, anemia, hyponatremia, presents with shortness of breath, worsening throughout the day. Patient reports there was no improvement with nebulizer treatment at home. She state that in the last 36 hours she developed a subjective fever and chills. States she also had chst pain today. Patient took x2 sublingual nitros prior to arrival. Patient states it feels like this is COPD. When asked about previous intubation states she is DNR and DNI. Otherwise no nausea or vomiting. Patient did not take temperature for her fever. Of note, patient has left sided chest port and refuses to take IV attempts anywhere else. Past Medical History Reviewed: Historical Data, Nursing Documentation, Vital Signs Vital Signs: Last Vital Signs Temp 98.9 F 07/23/18 00:08 Pulse 124 H 07/23/18 00:08 Resp 21 07/23/18 00:08 BP 207/116 H 07/23/18 00:08 Pulse Ox 100 07/23/18 00:08 - Medical History PMH: Anemia, Anxiety, COPD, Depression, Emphysema, Fibromyalgia, HTN, Hypercholesterolemia Denies: HIV, Chronic Kidney Disease Other PMH: Subclavian steal syndrome, hyponatremia - Surgical History Surgical History: Cholecystectomy, Hernia Repair (ileostomy s/p complications with hernia repair) - Family History Family History: States: [place] (father ( at age 48), brother ( at age 55)) - Immunization History Hx Tetanus Toxoid Vaccination: No Hx Influenza Vaccination: Yes Hx Pneumococcal Vaccination: Yes - Home Medications Home Medications: Ambulatory Orders Medication Instructions Recorded RX: Cyanocobalamin [Vitamin B12 1,000 mcg IM Q14D 02/02/16 1000 mcg/ml Inj] RX: Multivitamin/Iron/Folic Acid 1 tab PO DAILY 02/02/16 [Daily Multivitamin-Iron Tablet] RX: Omeprazole 40 mg PO DAILY 02/02/16 RX: Fluticasone Nasal [Flonase] 2 spray PRATIBHA HS PRN 01/06/17 RX: Octreotide [SandoSTATIN] 100 mcg SQ Q12 01/06/17 RX: Alprazolam [Xanax] 0.5 mg PO Q8 09/02/17 RX: Ergocalciferol (Vitamin D2) 50,000 unit PO MO 09/02/17 [Vitamin D2] RX: Metoprolol Succinate XL 25 mg PO DAILY 09/02/17 [Toprol XL] RX: Zolpidem [Ambien] 5 mg PO HS 09/02/17 Nicotine [Nicoderm Cq] 14 mg TD DAILY 09/08/17 RX: Atorvastatin [Lipitor] 20 mg PO DAILY tab 09/08/17 HYDROmorphone [Dilaudid] 1 mg PO Q4 PRN 09/22/17 Nystatin [Nystatin Oral Susp] 2 mg PO QID 09/22/17 RX: Sodium Chloride [Sodium 325 mg PO BID 09/22/17 Chloride Tab] predniSONE [Prednisone] 2.5 mg PO BID 09/22/17 Albuterol 0.083% [Albuterol 3 ml IH Q4 07/23/18 Sulfate 3 Ml] Albuterol Sulfate [Proair Hfa] 0.09 mg IH Q4 PRN 07/23/18 Budesonide/Formoterol Fumarate 2 puff IH BID 07/23/18 [Symbicort] Fluticasone Propionate [Flovent 0.22 mg IH BID 07/23/18 Hfa] Nitroglycerin [Nitrostat] 0.4 mg SL DAILY 07/23/18 RX: Isosorbide Mononitrate 30 mg PO DAILY 07/23/18 [Isosorbide Mononitrate ER] RX: Losartan [Cozaar] 25 mg PO DAILY 07/23/18 RX: traZODone [Desyrel] 100 mg PO HS 07/23/18 - Allergies Allergies/Adverse Reactions: Allergies Allergy/AdvReac Type Severity Reaction Status Date / Time Sulfa (Sulfonamide Allergy crystallized Verified 09/15/17 12:38 Antibiotics) kidneys Review of Systems ROS Statement: Except As Marked, All Systems Reviewed And Found Negative Constitutional: Positive for: Chills. Negative for: Fever Cardiovascular: Positive for: Chest Pain Respiratory: Positive for: Shortness of Breath Gastrointestinal: Negative for: Nausea, Vomiting Physical Exam - Reviewed Nursing Documentation Reviewed: Yes Vital Signs Reviewed: Yes - Physical Exam Appears: Positive for: Well, Non-toxic, No Acute Distress Head Exam: Positive for: ATRAUMATIC, NORMOCEPHALIC Skin: Positive for: Normal Color, Warm, DRY Eye Exam: Positive for: EOMI, Normal appearance, PERRL Neck: Positive for: Normal, Painless ROM Cardiovascular/Chest: Positive for: Regular Rate, Rhythm, Tachycardia. Negative for: Murmur Respiratory: Positive for: Crackles (bilateral mild), Respiratory Distress (shortness of breath) Gastrointestinal/Abdominal: Positive for: Normal Exam, Soft. Negative for: Tenderness Extremity: Positive for: Normal ROM. Negative for: Pedal Edema, Calf Tenderness (pain on calf squeeze), Deformity, Swelling Neurologic/Psych: Positive for: Alert, Oriented. Negative for: Motor/Sensory Deficits - Laboratory Results Result Diagrams: 07/23/18 08:50 07/23/18 08:50 Lab Results: pCO2 52 mm/Hg (35-45) H 07/23/18 01:03 pO2 215 mm/Hg (80-100) H 07/23/18 01:03 HCO3 23.7 mmol/L (21-28) 07/23/18 01:03 ABG pH 7.30 (7.35-7.45) L 07/23/18 01:03 ABG Total CO2 27.2 mmol/L (22-28) 07/23/18 01:03 ABG O2 Saturation 101.0 % (95-98) H 07/23/18 01:03 ABG Base Excess -1.6 mmol/L (-2.0-3.0) 07/23/18 01:03 Jonatan Test Yes 07/23/18 01:03 ABG Potassium 4.6 mmol/L (3.6-5.2) 07/23/18 01:03 A-a O2 Difference 34.0 mm/Hg 07/23/18 01:03 Sodium 119.0 mmol/L (132-148) L* 07/23/18 01:03 Chloride 90.0 mmol/L (98-107) L 07/23/18 01:03 Glucose 126 mg/dL (65-105) H 07/23/18 01:03 Lactate 0.7 mmol/L (0.7-2.1) 07/23/18 01:03 Vent Mode 6l nebtx 07/23/18 01:03 FiO2 44.0 % 07/23/18 01:03 Crit Value Called To Angelica shen md 07/23/18 01:03 Crit Value Called By Viral 07/23/18 01:03 Crit Value Read Back Y 07/23/18 01:03 Blood Gas Notified Time 109 07/23/18 01:03 Troponin I 0.0140 ng/mL (0.00-0.120) 07/23/18 00:40 NT-Pro-B Natriuret Pep 840 pg/ml (0-900) 07/23/18 00:40 - ECG O2 Sat by Pulse Oximetry: 100 (RA) Pulse Ox Interpretation: Normal Medical Decision Making Medical Decision Making: Time: 00:16 Initial Impression: Workup for shortness of breath also symptoms of viral ill ness * Initial Plan: * Duoneb * Solumedrol * Consider BIPAP (patient agrees to BIPAP if necessary) * Flu swab * Labs * Admits to Dr. Gonzales, will see patient in the morning 0220 Pt with improved respiration. CXR shows no infiltrates. Labs show no elevated WBC, troponin WNL, BNP WNL. Pt improved with duonebs, solumedrol, and magnesium. Pt to be admitted to telemetry for further COPD exacerbation shaneka atment. Scribe Attestation: Documented by Kirby Keyes acting as a scribe for Angelica Shen MD. Provider Scribe Attestation: All medical record entries made by the Scribe were at my direction and personally dictated by me. I have reviewed the chart and agree that the record accurately reflects my personal performance of the history, physical exam, medical decision making, and the department course for this patient. I have also personally directed, reviewed, and agree with the discharge instructions and disposition. Disposition - Clinical Impression Clinical Impression: Chronic congestive heart failure, COPD exacerbation - Patient ED Disposition Is Patient to be Admitted: Yes - Disposition Disposition Time: 02:20 Condition: FAIR
[2018-07-23] MEDS ORDERED: Magnesium Sulfate 2 gm/50 ml 2 GM/50 ML BAG IVPB STA (02:02)
[2018-07-23] MEDS ORDERED: Magnesium Sulfate 2 gm/50 ml 2 GM/50 ML BAG ONE (02:06)
[2018-07-23 02:41] LABS: LYMPHOCYTE 4 % (20-50); MONOCYTE 6 % (0-10); NEUTROPHIL 90 % (42-75); PLATELET ESTIMATE NORMAL (NORMAL); TOTAL CELLS COUNTED 100
[2018-07-23] MEDS ORDERED: Albuterol-Ipratrop 3 mg / 0.5 (3 ml) UD INH PRN (05:58)
[2018-07-23] MEDS ORDERED: HYDROMORPHONE 1 MG PO PRN (06:00)
[2018-07-23] MEDS: Budesonide 0.25 mg/2 ml Inhal Susp UD INH SCH ×2 (07:21→19:12)
--- NOTE | 2018-07-23 07:46 | RAD ---
Date of service: 07/23/2018 HISTORY: SOB, Influenza COMPARISON: Chest x-ray 09/02/2017 TECHNIQUE: Chest PA and lateral FINDINGS: LUNGS: Lungs are hyperinflated with flattening of the diaphragms which can be seen in COPD. mild left basilar atelectasis. PLEURA: No pleural effusion is identified. CARDIOVASCULAR: Heart size is within normal limits. Atherosclerotic calcifications present of the aorta.There is a left-sided Port-A-Cath with tip overlying the region of the distal SVC/right atrial junction. OSSEOUS STRUCTURES: Degenerative changes noted of the spine. VISUALIZED UPPER ABDOMEN: Unremarkable. OTHER FINDINGS: None. IMPRESSION: Lungs are hyperinflated with flattening of the diaphragms which can be seen in COPD. mild left basilar atelectasis.
--- NOTE | 2018-07-23 07:56 | CARD ---
APPROVED REPORT Date of service: 07/23/2018 EKG Measurement Heart [id number] <Conclusion> Normal sinus rhythm Baseline artifact Nonspecifc ST chnages Abnormal ECG
[2018-07-23] MEDS ORDERED: Sodium Chloride 3% for Inhalation 4 ML VIAL.NEB IH PRN (08:53)
[2018-07-23 08:55] LABS: BASO % 0.1 % (0.0-2.0); HEMOGLOBIN 14.2 g/dL (12.0-16.0); LYMPH # 0.2 K/uL (1.0-4.3); LYMPH % 2.2 % (20.0-40.0); MEAN CELL VOLUME 99.9 fl (81.0-99.0); MEAN CORPUSCULAR HEMOGLOBIN 34.1 pg (27.0-31.0); MEAN CORPUSCULAR HGB CONC 34.1 g/dL (33.0-37.0); MEAN PLATELET VOLUME 7.6 fl (7.2-11.7); MONO # 0.4 K/uL (0.0-0.8); MONO % 3.6 % (0.0-10.0); NEUT # 9.6 K/uL (1.8-7.0); NEUT % 94.1 % (50.0-75.0); NRBC % 0.1 % (0.0-0.0); PLATELET COUNT 183 K/uL (130-400); RBC 4.18 Mil/uL (3.80-5.20); RED CELL DISTRIBUTION WIDTH 13.9 % (11.5-14.5); WHITE BLOOD COUNT 10.2 K/uL (4.8-10.8)
[2018-07-23] MEDS ORDERED: IRON PO SCH (09:00)
[2018-07-23] MEDS ORDERED: MULTIVITAMIN PO SCH (09:00)
[2018-07-23] MEDS ORDERED: Enoxaparin 40 mg Syringe SC SCH (09:00)
[2018-07-23] MEDS ORDERED: FOLIC ACID PO SCH (09:00)
[2018-07-23] MEDS ORDERED: Patient's Own Med (Omeprazole [Omeprazole] 40 MG) PO SCH (09:00)
[2018-07-23 09:15] LABS: ALB/GLOB RATIO 1.2 (1.0-2.1); ALBUMIN 3.9 g/dL (3.5-5.0); ALT/SGPT 33 U/L (9-52); AST/SGOT 40 U/L (14-36); BLOOD UREA NITROGEN 12 mg/dl (7-17); CALCIUM 9.4 mg/dL (8.4-10.2); GFR NON-AFRICAN AMERICAN > 60
--- NOTE | 2018-07-23 10:03 | CP.PCM.CON ---
History of Present Illness - History of Present Illness History of Present Illness: THE PATIENT IS A 68 YEAR OLD FEMALE WITH A HISTORY OF CAD, HYPERTENSION COPD, ANEMIA, ANXIETY AND HYPONATREMIA. SHE HAD AN ACUTE ST ELEVATION ANTERIOR DE IN 2018 AND HAD AN EMERGENCY CARDIAC CATH AND THE LAD CLOT HAD RESOLVED WITH ANT ITHROMBOTICS GIVEN AT THE TIME OF THE DE AND THEREFORE SHE DID NOT NEED A STAENT. THE OTHER CORONARY ARTERIES WERE GOOD. SHE HAS HAD OCCASIONAL CHEST PAIN SINCE THEN RELIEVED BY NITRATES. SHE PRESENTLY STATES THE SHE HAS HAD PROGRESSIVELY MORE AND MORE SOB FOR ABOUT I WEEK ASSOCIATED WITH A HACKING COUGH AND SHE ALSO HAD FEVERS AND CHILLS. SHE WAS SO SOB YESTERDAY THAT SHE WENT TO THE ER AND WAS FOUND TO HAVE THE FLU AND WAS ADMITTED. I WAS ASKED TO FOLLOW HER DURING THIS ADMISSION. SHE ALSO HAD CHEST PAIN LAST NIGHT RELIEVED BY 2 SL NTG TABLETS AND IS PAIN FREE NOW. Past Patient History - Past Medical History & Family History Past Medical History?: Yes - Past Social History Smoking Status: Light Smoker < 10 Cigarettes Daily - CARDIAC Hx Cardiac Disorders: Yes Hx Hypercholesterolemia: Yes Hx Hypertension: Yes - PULMONARY Hx Respiratory Disorders: Yes Hx Chronic Obstructive Pulmonary Disease (COPD): Yes Hx Emphysema: Yes - NEUROLOGICAL Hx Neurological Disorder: Yes Other/Comment: FIBROMYALGIA - HEENT Hx HEENT Problems: No - RENAL Hx Chronic Kidney Disease: No - ENDOCRINE/METABOLIC Hx Endocrine Disorders: No - HEMATOLOGICAL/ONCOLOGICAL Hx Blood Disorders: Yes Hx Anemia: Yes Hx Human Immunodeficiency Virus (HIV): No - INTEGUMENTARY Hx Dermatological Problems: No - MUSCULOSKELETAL/RHEUMATOLOGICAL Hx Musculoskeletal Disorders: No Hx Falls: Yes - GASTROINTESTINAL Hx Gastrointestinal Disorders: Yes Hx Ileostomy: Yes - GENITOURINARY/GYNECOLOGICAL Hx Genitourinary Disorders: No - PSYCHIATRIC Hx Psychophysiologic Disorder: Yes Hx Anxiety: Yes Hx Depression: Yes - SURGICAL HISTORY Hx Surgeries: Yes Hx Cholecystectomy: Yes - ANESTHESIA Hx Anesthesia: Yes Hx Anesthesia Reactions: No Hx Malignant Hyperthermia: No Meds Allergies/Adverse Reactions: Allergies Allergy/AdvReac Type Severity Reaction Status Date / Time Sulfa (Sulfonamide Allergy crystallized Verified 09/15/17 12:38 Antibiotics) kidneys - Medications Medications: Current Medications Acetylcysteine (Acetylcysteine 20%) 2 ml INH RBID [facility] Albuterol/Ipratropium (Duoneb 3 Mg/0.5 Mg (3 Ml) Ud) 3 ml INH RQ4 [facility] Alprazolam (Xanax) 0.5 mg PO Q8 PRN PRN Reason: Anxiety Atorvastatin Calcium (Lipitor) 20 mg PO DAILY [facility] Budesonide (Pulmicort Respules) 0.25 mg INH RBID [facility] Last Admin: 07/23/18 07:21 Dose: 0.25 mg Cyanocobalamin (Vitamin B12 1000 Mcg/Ml Inj) 1,000 mcg IM Q14D [facility] Enoxaparin Sodium (Lovenox) 40 mg SC DAILY [facility]; Protocol Ergocalciferol (Drisdol 50,000 Intl Units Cap) 1 cap PO MO [facility] Fluticasone Propionate (Flonase) 2 spr PRATIBHA HS PRN PRN Reason: Allergy symptoms Hydromorphone HCl (Dilaudid) 1 mg PO Q4 PRN PRN Reason: Pain, severe (8-10) Azithromycin 500 mg/ Sodium (Chloride) 250 mls @ 250 mls/hr IVPB DAILY [facility]; Protocol Isosorbide Mononitrate (Imdur Er) 30 mg PO DAILY [facility] Losartan Potassium (Cozaar) 25 mg PO DAILY [facility] Methylprednisolone (Solu-Medrol) 60 mg IVP Q6 [facility] Metoprolol Succinate (Toprol Xl) 25 mg PO DAILY [facility] Multivitamins/Minerals (Therapeutic-M Tab) 1 tab PO DAILY [facility] Nicotine (Nicoderm Cq) 1 patch TD DAILY [facility] Nitroglycerin (Nitrostat Sl Tab) 0.4 mg SL DAILY PRN PRN Reason: chest pain Octreotide Acetate (Sandostatin) 100 mcg SC Q12 [facility] Oseltamivir Phosphate (Tamiflu Cap) 75 mg PO BID [facility]; Protocol Pantoprazole Sodium (Protonix Ec Tab) 40 mg PO DAILY [facility] Sodium Chloride (Sodium Chloride Tab) 1 gm PO DAILY [facility] Trazodone HCl (Desyrel) 100 mg PO HS [facility] Zolpidem Tartrate (Ambien) 5 mg PO HS PRN PRN Reason: Insomnia Physical Exam - Respiratory Exam Respiratory Exam: Wheezes - Cardiovascular Exam Cardiovascular Exam: REGULAR RHYTHM, +S1, +S2 - Extremities Exam Additional comments: NO SIGNIFICANT LE EDEMA - Additional Findings Additional findings: FIRST EKG SHOWS SINUS RHYTHM WITH BASELINE ARTEFACT AND NSSTT CHANGES EKG THIS AM SHOWS SINUS RHYTHM, NEW AND ACUTE ST ELEVATIONS IN CHEST LEADS V2 TO V6 TROPONIN #1 0.014 TROPONIN #2 1.20 NA 119 Results - Vital Signs Recent Vital Signs: Last Vital Signs Temp 98.4 F 07/23/18 08:02 Pulse 91 H 07/23/18 08:02 Resp 20 07/23/18 08:02 BP 154/89 H 07/23/18 08:02 Pulse Ox 97 07/23/18 04:53 - Labs Result Diagrams: 07/23/18 08:50 07/23/18 08:50 Labs: Laboratory Results - last 24 hr 07/23/18 07/23/18 07/23/18 00:40 00:40 00:48 WBC 9.2 RBC 4.00 Hgb 13.5 D Hct 40.3 MCV 100.8 H D MCH 33.8 H MCHC 33.6 RDW 14.0 Plt Count 165 MPV 7.4 Neut % (Auto) 89.6 H Lymph % (Auto) 4.5 L [place] % (Auto) 5.6 Eos % (Auto) 0.1 Baso % (Auto) 0.2 Neut # (Auto) 8.3 H Lymph # (Auto) 0.4 L [place] # (Auto) 0.5 Eos # (Auto) 0.0 Baso # (Auto) 0.0 Neutrophils % (Manual) 90 H Lymphocytes % (Manual) 4 L Monocytes % (Manual) 6 Platelet Estimate Normal RBC Morphology Normal pCO2 pO2 HCO3 ABG pH ABG Total CO2 ABG O2 Saturation ABG Base Excess Jonatan Test ABG Potassium A-a O2 Difference Glucose Lactate Vent Mode FiO2 Crit Value Called To Crit Value Called By Crit Value Read Back Blood Gas Notified Time Sodium 123 L Potassium 4.9 Chloride 86 L Carbon Dioxide 26 Anion Gap 16 BUN 12 Creatinine 0.8 Est GFR ( Amer) > 60 Est GFR (Non-Af Amer) > 60 Random Glucose 122 H Calcium 9.4 Magnesium Total Bilirubin AST ALT Alkaline Phosphatase Troponin I 0.0140 NT-Pro-B Natriuret Pep 840 Total Protein Albumin Globulin Albumin/Globulin Ratio TSH 3rd Generation Arterial Blood Potassium Influenza Typ A,B (EIA) Pos for influenza a H 07/23/18 07/23/18 07/23/18 01:03 08:50 08:50 WBC 10.2 RBC 4.18 Hgb 14.2 Hct 41.8 MCV 99.9 H MCH 34.1 H MCHC 34.1 RDW 13.9 Plt Count 183 MPV 7.6 Neut % (Auto) 94.1 H Lymph % (Auto) 2.2 L [place] % (Auto) 3.6 Eos % (Auto) 0.0 Baso % (Auto) 0.1 Neut # (Auto) 9.6 H Lymph # (Auto) 0.2 L [place] # (Auto) 0.4 Eos # (Auto) 0.0 Baso # (Auto) 0.0 Neutrophils % (Manual) Lymphocytes % (Manual) Monocytes % (Manual) Platelet Estimate RBC Morphology pCO2 52 H pO2 215 H HCO3 23.7 ABG pH 7.30 L ABG Total CO2 27.2 ABG O2 Saturation 101.0 H ABG Base Excess -1.6 Jonatan Test Yes ABG Potassium 4.6 A-a O2 Difference 34.0 Glucose 126 H Lactate 0.7 Vent Mode 6l nebtx FiO2 44.0 Crit Value Called To Angelica mcdonnell md Crit Value Called By 333 Crit Value Read Back Y Blood Gas Notified Time 109 Sodium 119.0 L* 126 L Potassium 4.7 Chloride 90.0 L 89 L Carbon Dioxide 29 Anion Gap 13 BUN 12 Creatinine 0.8 Est GFR ( Amer) > 60 Est GFR (Non-Af Amer) > 60 Random Glucose 151 H Calcium 9.4 Magnesium 2.2 Total Bilirubin 0.6 AST 40 H ALT 33 Alkaline Phosphatase 99 Troponin I 1.2000 H* NT-Pro-B Natriuret Pep Total Protein 7.3 Albumin 3.9 Globulin 3.4 Albumin/Globulin Ratio 1.2 TSH 3rd Generation 0.26 L Arterial Blood Potassium 4.6 Influenza Typ A,B (EIA) Assessment & Plan - Assessment and Plan (Free Text) Assessment: COPD WITH FLU INFECTION CAD WITH AWMI IN 2018 WITH DISSOLUTION OF THE LAD THROMBUS ON CARDIAC CATH. PRESENTLY WITH NEW AND ACUTE ANTERIOR WALL ST ELEVATIONS AND ELEVATED 2ND T ROPONIN C/W ACUTE AWMI. HYPONATREMIA Plan: THE PATIENT WAS TOLD ABOUT HER EKG CHANGES AND ELEVATED TROPONIN AND THAT THE CORRECT COURSE OF ACTION WOULD BE TO PROCEED WITH AN EMERGENCY CARDIAC CATH TO SEE IF SHE NEEDS A CORONARY STENT OR CABGS THIS WOULD DECREASE MYOCARDIAL INJURY AND MAY EVEN BE LIFE SAVING. SHE IS AWAKE, ALERT AND ORIENTED X 3 AND ABSOLUTELY REFUSES ANY INVASIVE TREATMENT INSISTING THAT SHE IS A DNR AND DNI AND ONLY WANTS CONSERVATIVE MEDICAL TREATMENT. CONTINUE O2, METOPROLOL, LOSARTAN, NITRATES, ASPIRIN, CLOPODOGREL, THERAPEUTIC DOSAGE LOVENOX, ATORVASTATIN, ANTIBIOTICS, TAMIFLU AND COPD MEDS
[2018-07-23] MEDS: Azithromycin 500 MG in Sodium Chloride 0.9% 250 ML IVPB SCH (10:07)
[2018-07-23] MEDS: Multivitamin With Minerals Tab PO SCH (10:09)
[2018-07-23] MEDS: Pantoprazole 40 mg EC Tab PO SCH (10:16)
[2018-07-23] MEDS: Metoprolol Succinate 25 mg XL Tab PO SCH (10:16)
[2018-07-23 10:23] LABS: BANDS 6 % (0-2); LYMPHOCYTE 4 % (20-50); MONOCYTE 2 % (0-10); NEUTROPHIL 88 % (42-75); PLATELET ESTIMATE NORMAL (NORMAL); TOTAL CELLS COUNTED 100
[2018-07-23] MEDS ORDERED: Enoxaparin 60 mg Syringe SC STA (10:29)
--- NOTE | 2018-07-23 10:53 | CP.PCM.PCO ---
Assessment and Plan - Assessment and Plan (Free Text) Assessment: Received a critical troponin elevation from lab this morning at 945am T=1.2. Patient was seen and examined, she denied chest pain, shortness of breath. EKG ordered, and some acute changes seen compared to old ekg. Discussed with Dr Rutledge and medications were ordered, aspirin, plavix, lovenox Patient does not want any invasive tests at this time. All the above discussed with Dr Rutledge and Dr Gonzales
[2018-07-23] MEDS: Aspirin 325 mg EC Tablets PO SCH (11:32)
[2018-07-23] MEDS: Albuterol-Ipratrop 3 mg / 0.5 (3 ml) UD INH SCH ×3 (13:50→19:12)
[2018-07-23] MEDS: Acetylcysteine 20% Inhal Soln (4ml) INH SCH (19:12)
--- NOTE | 2018-07-23 20:18 | CARD ---
APPROVED REPORT Date of service: 07/23/2018 EKG Measurement Heart [id number] <Conclusion> Normal sinus rhythm Left axis deviation Anteroseptal infarct, possibly acute T wave abnormality, consider lateral ischemia ACUTE [place] / STEMI Abnormal ECG
--- NOTE | 2018-07-23 20:20 | CARD ---
APPROVED REPORT Date of service: 07/23/2018 EKG Measurement Heart [id number] <Conclusion> Sinus rhythm with premature atrial complexes Left axis deviation Anteroseptal infarct, possibly acute ACUTE [place] / STEMI Abnormal ECG
[2018-07-23] MEDS: Enoxaparin 60 mg Syringe SC SCH (21:26)
[2018-07-24] MEDS: Albuterol-Ipratrop 3 mg / 0.5 (3 ml) UD INH SCH ×7 (04:56→23:46)
[2018-07-24] MEDS: Budesonide 0.25 mg/2 ml Inhal Susp UD INH SCH ×2 (08:15→20:01)
[2018-07-24] MEDS: Acetylcysteine 20% Inhal Soln (4ml) INH SCH ×2 (08:15→19:59)
[2018-07-24] MEDS: Metoprolol Succinate 25 mg XL Tab PO SCH (08:16)
[2018-07-24] MEDS: Multivitamin With Minerals Tab PO SCH (08:16)
[2018-07-24] MEDS: Aspirin 325 mg EC Tablets PO SCH (08:17)
[2018-07-24] MEDS: Pantoprazole 40 mg EC Tab PO SCH (08:17)
[2018-07-24] MEDS: Enoxaparin 60 mg Syringe SC SCH (08:18)
[2018-07-24] MEDS: Azithromycin 500 MG in Sodium Chloride 0.9% 250 ML IVPB SCH (08:27)
--- NOTE | 2018-07-24 08:30 | CARD ---
APPROVED REPORT Date of service: 07/24/2018 EKG Measurement Heart [id number] <Conclusion> Normal sinus rhythm ST & Marked T wave abnormality, consider anterolateral ischemia Prolonged QT Abnormal ECG
[2018-07-24 08:36] LABS: OSMOLALITY,URINE 472 mosm/kg (300-1000)
--- NOTE | 2018-07-24 09:03 | CP.PCM.HP ---
History of Present Illness - History of Present Illness History of Present Illness: CC: Shortness of breath and chest pain History of Present Illness: A 68 y/o female with PMHx of CAD status post Stents, Hypertension, COPD, Subclavian steal syndrome, anemia, and chronic hyponatremia, presents with shortness of breath, worsening throughout the day. She was prescribed Medrol pack and azithromycin by her PCP for Possible COPD exacerbation. Patient reports there was no improvement with outpatient treatment with DuoNeb and steroids. She also stated that in the last 36 hours she developed a subjective fever and chills but did not check temperature. She also had retrosternal chest pain on the day of presentation to the ER which has resolved since. Patien is DNR and DNI. Otherwise no nausea or vomiting. In the ER patient was found to have EKG changes, and later the troponin trended up. Patient was offered possible cardiac Catheterization which she does not want to have any invasive procedure. Also blood work showed Hyponatremia. Patient is currently being treated for COPD exacerbation, non-ST elevation OH and Hyponatremia. Present on Admission - Present on Admission Any Indicators Present on Admission: Yes Review of Systems - Review of Systems All systems: reviewed and no additional remarkable complaints except Review of Systems: as pe HPI Past Patient History - Past Medical History & Family History Past Medical History?: Yes Past Family History: Reviewed and not pertinent - Past Social History Smoking Status: Light Smoker < 10 Cigarettes Daily Alcohol: Social Drugs: Denies - CARDIAC Hx Hypercholesterolemia: Yes Hx Hypertension: Yes - PULMONARY Hx Chronic Obstructive Pulmonary Disease (COPD): Yes Hx Emphysema: Yes - NEUROLOGICAL Hx Neurological Disorder: Yes Other/Comment: FIBROMYALGIA - HEENT Hx HEENT Problems: No - RENAL Hx Chronic Kidney Disease: No - ENDOCRINE/METABOLIC Hx Endocrine Disorders: No - HEMATOLOGICAL/ONCOLOGICAL Hx Anemia: Yes Hx Human Immunodeficiency Virus (HIV): No - INTEGUMENTARY Hx Dermatological Problems: No - MUSCULOSKELETAL/RHEUMATOLOGICAL Hx Musculoskeletal Disorders: No Hx Falls: Yes - GASTROINTESTINAL Hx Gastrointestinal Disorders: Yes Hx Ileostomy: Yes - GENITOURINARY/GYNECOLOGICAL Hx Genitourinary Disorders: No - PSYCHIATRIC Hx Anxiety: Yes Hx Depression: Yes - SURGICAL HISTORY Hx Cholecystectomy: Yes - ANESTHESIA Hx Anesthesia: Yes Hx Anesthesia Reactions: No Hx Malignant Hyperthermia: No Meds Allergies/Adverse Reactions: Allergies Allergy/AdvReac Type Severity Reaction Status Date / Time Sulfa (Sulfonamide Allergy crystallized Verified 09/15/17 12:38 Antibiotics) kidneys Physical Exam - Constitutional Appears: In Acute Distress, Chronically Ill - Head Exam Head Exam: ATRAUMATIC, NORMAL INSPECTION, NORMOCEPHALIC - Eye Exam Eye Exam: EOMI - ENT Exam ENT Exam: Mucous Membranes Dry, Normal Exam - Neck Exam Neck exam: Positive for: Full Rom, Normal Inspection - Respiratory Exam Respiratory Exam: Accessory Muscle Use, Decreased Breath Sounds, Prolonged Expiratory Phase, Wheezes. absent: Rales Additional comments: Left Chest Port-A-Cath - Cardiovascular Exam Cardiovascular Exam: Tachycardia, REGULAR RHYTHM, +S1, +S2 - GI/Abdominal Exam GI & Abdominal Exam: Normal Bowel Sounds, Soft Additional comments: Colostomy bag - Extremities Exam Extremities exam: Positive for: full ROM, normal capillary refill - Back Exam Back exam: FULL ROM, NORMAL INSPECTION - Neurological Exam Neurological exam: Abnormal Gait, Alert, CN II-XII Intact, Oriented x3, Reflexes Normal - Psychiatric Exam Psychiatric exam: Anxious, Depressed - Skin Skin Exam: Dry, Intact, Normal Color Results - Vital Signs Recent Vital Signs: Last Vital Signs Temp 97.5 F L 07/24/18 07:59 Pulse 76 07/24/18 08:17 Resp 18 07/24/18 07:59 BP 126/65 07/24/18 08:17 Pulse Ox 96 07/24/18 07:59 - Labs Result Diagrams: 07/23/18 08:50 07/23/18 08:50 Labs: Laboratory Results - last 24 hr 07/23/18 07/23/18 07/23/18 08:50 08:50 17:00 WBC 10.2 RBC 4.18 Hgb 14.2 Hct 41.8 MCV 99.9 H MCH 34.1 H MCHC 34.1 RDW 13.9 Plt Count 183 MPV 7.6 Neut % (Auto) 94.1 H Lymph % (Auto) 2.2 L [place] % (Auto) 3.6 Eos % (Auto) 0.0 Baso % (Auto) 0.1 Neut # (Auto) 9.6 H Lymph # (Auto) 0.2 L [place] # (Auto) 0.4 Eos # (Auto) 0.0 Baso # (Auto) 0.0 Neutrophils % (Manual) 88 H Band Neutrophils % 6 H Lymphocytes % (Manual) 4 L Monocytes % (Manual) 2 Platelet Estimate Normal RBC Morphology Normal Sodium 126 L Potassium 4.7 Chloride 89 L Carbon Dioxide 29 Anion Gap 13 BUN 12 Creatinine 0.8 Est GFR ( Amer) > 60 Est GFR (Non-Af Amer) > 60 Random Glucose 151 H Serum Osmolality Calcium 9.4 Magnesium 2.2 Total Bilirubin 0.6 AST 40 H ALT 33 Alkaline Phosphatase 99 Troponin I 1.2000 H* 2.5800 H* Total Protein 7.3 Albumin 3.9 Globulin 3.4 Albumin/Globulin Ratio 1.2 Vitamin B12 606 TSH 3rd Generation 0.26 L Urine Osmolality Ur Random Sodium 07/23/18 07/24/18 07/24/18 23:25 00:55 06:40 WBC RBC Hgb Hct MCV MCH MCHC RDW Plt Count MPV Neut % (Auto) Lymph % (Auto) [place] % (Auto) Eos % (Auto) Baso % (Auto) Neut # (Auto) Lymph # (Auto) [place] # (Auto) Eos # (Auto) Baso # (Auto) Neutrophils % (Manual) Band Neutrophils % Lymphocytes % (Manual) Monocytes % (Manual) Platelet Estimate RBC Morphology Sodium Potassium Chloride Carbon Dioxide Anion Gap BUN Creatinine Est GFR ( Amer) Est GFR (Non-Af Amer) Random Glucose Serum Osmolality 269 L Calcium Magnesium Total Bilirubin AST ALT Alkaline Phosphatase Troponin I 1.9600 H* Total Protein Albumin Globulin Albumin/Globulin Ratio Vitamin B12 TSH 3rd Generation Urine Osmolality 472 Ur Random Sodium < 5 07/24/18 08:06 WBC RBC Hgb Hct MCV MCH MCHC RDW Plt Count MPV Neut % (Auto) Lymph % (Auto) [place] % (Auto) Eos % (Auto) Baso % (Auto) Neut # (Auto) Lymph # (Auto) [place] # (Auto) Eos # (Auto) Baso # (Auto) Neutrophils % (Manual) Band Neutrophils % Lymphocytes % (Manual) Monocytes % (Manual) Platelet Estimate RBC Morphology Sodium Potassium Chloride Carbon Dioxide Anion Gap BUN Creatinine Est GFR ( Amer) Est GFR (Non-Af Amer) Random Glucose Serum Osmolality Calcium Magnesium Total Bilirubin AST ALT Alkaline Phosphatase Troponin I 1.4700 H* Total Protein Albumin Globulin Albumin/Globulin Ratio Vitamin B12 TSH 3rd Generation Urine Osmolality Ur Random Sodium - EKG Data EKG Interpreted by: Other EKG shows normal: Sinus rhythm - Impressions Impression: EKG done 07/23/18: Normal sinus rhythm at 80 bpm, left axis deviation, T wave abnormalities on lateral leads, questionable ST elevation Assessment & Plan (1) Influenza A H1N1 infection Status: Acute Priority: High (2) COPD exacerbation Status: Acute Priority: High (3) NSTEMI (non-ST elevated myocardial infarction) Status: Acute Priority: High (4) Hyponatremia Status: Acute Priority: High (5) Chronic congestive heart failure Status: Acute Priority: Medium (6) Anxiety disorder Status: Acute (7) Hypertension Status: Chronic Priority: Low - Assessment and Plan (Free Text) Plan: Admit to telemetry O2 DuoNeb every 4 hours exnybl-vgi-oblah IV Solu-Medrol 60 mg IV every 6 hours Pulmicort 0.5 mg twice daily via neb Azithromycin 500 IV daily Tamiflu 75 mg twice daily for 5 days Aspirin /therapeutic Lovenox /Plavix/beta-jag Sodium salt Serum and urine osmolality Urine sodium, random Repeat transthoracic echo Serial Troponin and EKG TSH, lipid profile and vitamin B12 level Cardiology and pulmonary consult Continue home medications Colostomy care
[2018-07-24 10:43] LABS: BASO % 0.1 % (0.0-2.0); HEMOGLOBIN 11.9 g/dL (12.0-16.0); LYMPH # 0.4 K/uL (1.0-4.3); LYMPH % 3.4 % (20.0-40.0); MEAN CELL VOLUME 100.7 fl (81.0-99.0); MEAN CORPUSCULAR HEMOGLOBIN 33.5 pg (27.0-31.0); MEAN CORPUSCULAR HGB CONC 33.3 g/dL (33.0-37.0); MEAN PLATELET VOLUME 7.7 fl (7.2-11.7); MONO # 0.5 K/uL (0.0-0.8); MONO % 4.7 % (0.0-10.0); NEUT # 10.2 K/uL (1.8-7.0); NEUT % 91.8 % (50.0-75.0); PLATELET COUNT 161 K/uL (130-400); RBC 3.54 Mil/uL (3.80-5.20); RED CELL DISTRIBUTION WIDTH 13.7 % (11.5-14.5); WHITE BLOOD COUNT 11.1 K/uL (4.8-10.8)
[2018-07-24 11:05] LABS: BLOOD UREA NITROGEN 16 mg/dl (7-17); CALCIUM 8.6 mg/dL (8.4-10.2); GFR NON-AFRICAN AMERICAN > 60
[2018-07-24 11:12] LABS: B-TYPE NATRIURETIC PEPTIDE 10000 pg/ml (0-900)
--- NOTE | 2018-07-24 11:15 | CP.PCM.PN ---
Subjective - Date & Time of Evaluation Date of Evaluation: 07/24/18 Time of Evaluation: 11:18 - Subjective Subjective: FEELS WEAK COUGH PERSISTS BUT LESS C/O CHEST PRESSURE AND SWELLING WITH DISCOLORATION OF L GROIN AREA FOLLOWING LOVENOX INJECTION Objective - Vital Signs/Intake and Output Vital Signs (last 24 hours): Temp Pulse Resp BP Pulse Ox 97.5 F L 76 18 126/65 96 07/24/18 07:59 07/24/18 08:17 07/24/18 07:59 07/24/18 08:17 07/24/18 07:59 - Medications Medications: Current Medications Acetaminophen (Tylenol 325mg Tab) 650 mg PO Q6 PRN PRN Reason: Headache Last Admin: 07/23/18 22:24 Dose: 650 mg Acetylcysteine (Acetylcysteine 20%) 2 ml INH RBID [facility] Last Admin: 07/24/18 08:15 Dose: 2 ml Albuterol/Ipratropium (Duoneb 3 Mg/0.5 Mg (3 Ml) Ud) 3 ml INH RQ4 [facility] Last Admin: 07/24/18 08:15 Dose: 3 ml Alprazolam (Xanax) 0.5 mg PO Q8 PRN PRN Reason: Anxiety Last Admin: 07/23/18 21:26 Dose: 0.5 mg Aspirin (Ecotrin) 325 mg PO DAILY [facility] Last Admin: 07/24/18 08:17 Dose: 325 mg Atorvastatin Calcium (Lipitor) 20 mg PO DAILY [facility] Last Admin: 07/24/18 08:18 Dose: 20 mg Budesonide (Pulmicort Respules) 0.25 mg INH RBID [facility] Last Admin: 07/24/18 08:15 Dose: 0.25 mg Clopidogrel Bisulfate (Plavix) 75 mg PO DAILY [facility] Last Admin: 07/24/18 08:21 Dose: 75 mg Cyanocobalamin (Vitamin B12 1000 Mcg/Ml Inj) 1,000 mcg IM Q14D [facility] Last Admin: 07/23/18 10:17 Dose: 1,000 mcg Enoxaparin Sodium (Lovenox) 45 mg SC Q12 [facility]; Protocol Last Admin: 07/24/18 08:18 Dose: 45 mg Ergocalciferol (Drisdol 50,000 Intl Units Cap) 1 cap PO MO [facility] Fluticasone Propionate (Flonase) 2 spr PRATIBHA HS PRN PRN Reason: Allergy symptoms Hydromorphone HCl (Dilaudid) 1 mg PO Q4 PRN PRN Reason: Pain, severe (8-10) Azithromycin 500 mg/ Sodium (Chloride) 250 mls @ 250 mls/hr IVPB DAILY [facility]; Protocol Last Admin: 07/24/18 08:27 Dose: 250 mls/hr Isosorbide Mononitrate (Imdur Er) 30 mg PO DAILY [facility] Last Admin: 07/24/18 08:17 Dose: 30 mg Losartan Potassium (Cozaar) 25 mg PO DAILY [facility] Last Admin: 07/24/18 08:17 Dose: 25 mg Methylprednisolone (Solu-Medrol) 60 mg IVP Q6 [facility] Last Admin: 07/24/18 09:55 Dose: 60 mg Metoprolol Succinate (Toprol Xl) 25 mg PO DAILY [facility] Last Admin: 07/24/18 08:16 Dose: 25 mg Multivitamins/Minerals (Therapeutic-M Tab) 1 tab PO DAILY [facility] Last Admin: 07/24/18 08:16 Dose: 1 tab Nicotine (Nicoderm Cq) 1 patch TD DAILY [facility] Last Admin: 07/24/18 08:19 Dose: 1 patch Nitroglycerin (Nitrostat Sl Tab) 0.4 mg SL DAILY PRN PRN Reason: chest pain Octreotide Acetate (Sandostatin) 100 mcg SC Q12 [facility] Last Admin: 07/24/18 08:26 Dose: 100 mcg Oseltamivir Phosphate (Tamiflu Cap) 75 mg PO BID [facility]; Protocol Last Admin: 07/24/18 08:20 Dose: 75 mg Pantoprazole Sodium (Protonix Ec Tab) 40 mg PO DAILY [facility] Last Admin: 07/24/18 08:17 Dose: 40 mg Sodium Chloride (Sodium Chloride Tab) 1 gm PO DAILY [facility] Last Admin: 07/24/18 08:20 Dose: 1 gm Trazodone HCl (Desyrel) 100 mg PO HS [facility] Last Admin: 07/23/18 21:26 Dose: 100 mg Zolpidem Tartrate (Ambien) 5 mg PO HS PRN PRN Reason: Insomnia - Labs Labs: 07/24/18 10:35 07/24/18 08:06 - Constitutional Appears: Chronically Ill - Head Exam Head Exam: ATRAUMATIC, NORMAL INSPECTION, NORMOCEPHALIC - Eye Exam Eye Exam: EOMI, Normal appearance, PERRL Pupil Exam: NORMAL ACCOMODATION, PERRL - ENT Exam ENT Exam: Mucous Membranes Moist, Normal Exam - Neck Exam Neck Exam: Full ROM, Normal Inspection. absent: Lymphadenopathy - Respiratory Exam Respiratory Exam: Decreased Breath Sounds, Prolonged Expiratory Phase, Rales, Wheezes, NORMAL BREATHING PATTERN - Cardiovascular Exam Cardiovascular Exam: REGULAR RHYTHM, +S1, +S2. absent: Murmur - GI/Abdominal Exam GI & Abdominal Exam: Soft, Normal Bowel Sounds. absent: Tenderness - Rectal Exam Rectal Exam: NORMAL INSPECTION - Extremities Exam Extremities Exam: Full ROM, Normal Capillary Refill, Normal Inspection. absent: Joint Swelling, Pedal Edema - Back Exam Back Exam: NORMAL INSPECTION - Neurological Exam Neurological Exam: Alert, Awake, CN II-XII Intact, Normal Gait, Oriented x3 - Psychiatric Exam Psychiatric exam: Anxious - Skin Skin Exam: Dry, Intact, Warm Additional comments: L GROIN HEMATOMA/ECHYMOSIS Assessment and Plan - Assessment and Plan (Free Text) Assessment: ACUTE EXAC OF COPD H.FLU INFECTION ACUTE MYOCARDIAL INFARCTION HEMATOMA L GROIN AREA ANXIETY Plan: CONTINUE RX ORDERED WILL NEED CT SCAN OR U/S TO R/O HEMATOMA OF L GROIN--NURSE TO CALL PMD PT REFUSES CARDIAC INTERVENTION FOR ACUTE OH
--- NOTE | 2018-07-24 11:25 | CP.PCM.PN ---
Subjective - Date & Time of Evaluation Date of Evaluation: 07/24/18 Time of Evaluation: 09:00 - Subjective Subjective: NO CHEST PAIN TODAY LESS SOB AND LESS COUGH FEELS A LITTLE STRONGER TODAY Objective - Vital Signs/Intake and Output Vital Signs (last 24 hours): Temp Pulse Resp BP Pulse Ox 97.5 F L 76 18 126/65 96 07/24/18 07:59 07/24/18 08:17 07/24/18 07:59 07/24/18 08:17 07/24/18 07:59 - Medications Medications: Current Medications Acetaminophen (Tylenol 325mg Tab) 650 mg PO Q6 PRN PRN Reason: Headache Last Admin: 07/23/18 22:24 Dose: 650 mg Acetylcysteine (Acetylcysteine 20%) 2 ml INH RBID [facility] Last Admin: 07/24/18 08:15 Dose: 2 ml Albuterol/Ipratropium (Duoneb 3 Mg/0.5 Mg (3 Ml) Ud) 3 ml INH RQ4 [facility] Last Admin: 07/24/18 08:15 Dose: 3 ml Alprazolam (Xanax) 0.5 mg PO Q8 PRN PRN Reason: Anxiety Last Admin: 07/23/18 21:26 Dose: 0.5 mg Aspirin (Ecotrin) 325 mg PO DAILY [facility] Last Admin: 07/24/18 08:17 Dose: 325 mg Atorvastatin Calcium (Lipitor) 20 mg PO DAILY [facility] Last Admin: 07/24/18 08:18 Dose: 20 mg Budesonide (Pulmicort Respules) 0.25 mg INH RBID [facility] Last Admin: 07/24/18 08:15 Dose: 0.25 mg Clopidogrel Bisulfate (Plavix) 75 mg PO DAILY [facility] Last Admin: 07/24/18 08:21 Dose: 75 mg Cyanocobalamin (Vitamin B12 1000 Mcg/Ml Inj) 1,000 mcg IM Q14D [facility] Last Admin: 07/23/18 10:17 Dose: 1,000 mcg Enoxaparin Sodium (Lovenox) 45 mg SC Q12 [facility]; Protocol Last Admin: 07/24/18 08:18 Dose: 45 mg Ergocalciferol (Drisdol 50,000 Intl Units Cap) 1 cap PO MO [facility] Fluticasone Propionate (Flonase) 2 spr PRATIBHA HS PRN PRN Reason: Allergy symptoms Hydromorphone HCl (Dilaudid) 1 mg PO Q4 PRN PRN Reason: Pain, severe (8-10) Azithromycin 500 mg/ Sodium (Chloride) 250 mls @ 250 mls/hr IVPB DAILY [facility]; Protocol Last Admin: 07/24/18 08:27 Dose: 250 mls/hr Isosorbide Mononitrate (Imdur Er) 30 mg PO DAILY [facility] Last Admin: 07/24/18 08:17 Dose: 30 mg Losartan Potassium (Cozaar) 25 mg PO DAILY [facility] Last Admin: 07/24/18 08:17 Dose: 25 mg Methylprednisolone (Solu-Medrol) 60 mg IVP Q6 [facility] Last Admin: 07/24/18 09:55 Dose: 60 mg Metoprolol Succinate (Toprol Xl) 25 mg PO DAILY [facility] Last Admin: 07/24/18 08:16 Dose: 25 mg Multivitamins/Minerals (Therapeutic-M Tab) 1 tab PO DAILY [facility] Last Admin: 07/24/18 08:16 Dose: 1 tab Nicotine (Nicoderm Cq) 1 patch TD DAILY [facility] Last Admin: 07/24/18 08:19 Dose: 1 patch Nitroglycerin (Nitrostat Sl Tab) 0.4 mg SL DAILY PRN PRN Reason: chest pain Octreotide Acetate (Sandostatin) 100 mcg SC Q12 [facility] Last Admin: 07/24/18 08:26 Dose: 100 mcg Oseltamivir Phosphate (Tamiflu Cap) 75 mg PO BID [facility]; Protocol Last Admin: 07/24/18 08:20 Dose: 75 mg Pantoprazole Sodium (Protonix Ec Tab) 40 mg PO DAILY [facility] Last Admin: 07/24/18 08:17 Dose: 40 mg Sodium Chloride (Sodium Chloride Tab) 1 gm PO DAILY [facility] Last Admin: 07/24/18 08:20 Dose: 1 gm Trazodone HCl (Desyrel) 100 mg PO HS [facility] Last Admin: 07/23/18 21:26 Dose: 100 mg Zolpidem Tartrate (Ambien) 5 mg PO HS PRN PRN Reason: Insomnia - Labs Labs: 07/24/18 10:35 07/24/18 08:06 - Respiratory Exam Respiratory Exam: Clear to Ausculation Bilateral - Cardiovascular Exam Cardiovascular Exam: REGULAR RHYTHM, +S1, +S2 - Extremities Exam Extremities Exam: Normal Inspection - Additional Findings Additional findings: EKG TODAY NSR, STILL WITH SOME ST SEGMENT ELEVATION IN THE CHEST LEADS BUT ALSO DEEP DT WAVE COVING IN THE ANTERIOR AND INFERIOR LEADS TROPONINS TRENDING DOWN Assessment and Plan - Assessment and Plan (Free Text) Plan: CONTINUE O2, ASPIRIN, CLOPIDOGREL, LOVENOX, METOPROLOL, ATORVASTATIN, LOSARTAN, NITRATES, TAMIFLU, ANTIBIOTICS AND COPD MEDS
[2018-07-24 12:23] LABS: BANDS 7 % (0-2); LYMPHOCYTE 4 % (20-50); MONOCYTE 5 % (0-10); NEUTROPHIL 84 % (42-75); PLATELET ESTIMATE NORMAL (NORMAL); TOTAL CELLS COUNTED 100
--- NOTE | 2018-07-24 13:02 | CP.PCM.PCO ---
Assessment & Plan - Assessment and Plan (Free Text) Assessment: pt. sitting up in bed; c/o LLQ pain and intermittent sob large LLQ hematoma noted; cbc stat ordered; drop in hgb from 14 to [address] abd pelvis w/o contrast warm compress D/w Dr. Rutledge , cont. asa plavix, hold lovenox trend cbc this afternoon and cont to monitor
[2018-07-24] MEDS ORDERED: Nystatin 100,000 Units/ml Oral Susp 5 ml UD PO PRN (13:28)
[2018-07-24 13:38] LABS: PROTHROMBIN TIME 11.3 Seconds (9.8-13.1)
--- NOTE | 2018-07-24 16:38 | CT ---
Date of service: 07/24/2018 PROCEDURE: CT Abdomen and Pelvis without intravenous contrast HISTORY: LLQ hematoma, pain COMPARISON: 09/10/2017 TECHNIQUE: Without contrast.. Contrast dose: 0 Radiation dose: Total exam DLP = 258.17 mGy-cm. This CT exam was performed using one or more of the following dose reduction techniques: Automated exposure control, adjustment of the mA and/or kV according to patient size, and/or use of iterative reconstruction technique. FINDINGS: LOWER THORAX: Centrilobular pulmonary emphysema. Patchy bilateral lower lobe infiltrates, left greater than right. Possible pneumonia. LIVER: Unremarkable. No gross lesion or ductal dilatation. GALLBLADDER AND BILE DUCTS: Cholecystectomy PANCREAS: Unremarkable. No gross lesion or ductal dilatation. SPLEEN: Unremarkable. ADRENALS: Unremarkable. No mass. KIDNEYS AND URETERS: Unremarkable. No hydronephrosis. No solid mass. VASCULATURE: No aortic aneurysm. There is atherosclerotic calcification of the abdominal aorta. BOWEL: No bowel obstruction. Partial colectomy. Right lower quadrant colostomy. Parastomal hernia noted containing loop of likely small bowel. APPENDIX: Not identified. PERITONEUM: No ascites. No pneumoperitoneum. Please note that there is small amount of subcutaneous gas in the subcutaneous soft tissues of the far inferior right lower anterior abdominal wall with associated ill-defined soft tissue density. Uncertain significance. Possible subcutaneous injection site. Please correlate. There is a left lower anterior abdominal wall/left anterior pelvic soft tissue ecchymosis/hematoma with thickening of the overlying skin consistent with cutaneous ecchymosis. LYMPH NODES: Unremarkable. No enlarged lymph nodes. BLADDER: Unremarkable. REPRODUCTIVE: Nondistended hysterectomy BONES: No acute fracture. OTHER FINDINGS: None. IMPRESSION: Hematoma/subcutaneous ecchymosis left lower anterior abdominal wall. Right lower quadrant colostomy with parastomal hernia. No bowel obstruction. Bilateral lower lobe patchy infiltrates, left greater than right. Possible pneumonia. Small amount of gas seen in subcutaneous soft tissues far inferior right lower anterior abdominal wall associated with soft tissue density, uncertain significance. This could represent a subcutaneous injection site. Please correlate.
--- NOTE | 2018-07-24 20:48 | CARD ---
APPROVED REPORT Date of service: 07/24/2018 EXAM: Two-dimensional and M-mode echocardiogram with Doppler and color Doppler. Other Information Quality : AverageRhythm : NSR Technically limited study due to smoking.COPD INDICATION Non STEMI 2D DIMENSIONS IVSd0.98 (0.7-1.1cm)LVDd4.15 (3.9-5.9cm) PWd0.80 (0.7-1.1cm)IVSs1.09 (0.8-1.2cm) LVDs3.44 (2.5-4.0cm)FS (%) 17.2 % PWs0.76 (0.8-1.2cm) M-Mode DIMENSIONS Left Atrium (MM)1.85 (2.5-4.0cm)IVSd0.77 (0.7-1.1cm) Aortic Root2.26 (2.2-3.7cm)LVDd4.80 (4.0-5.6cm) Aortic Cusp Exc.1.63 (1.5-2.0cm)PWd0.94 (0.7-1.1cm) IVSs1.24 cmFS (%) 37 % LVDs3.03 (2.0-3.8cm)PWs1.16 cm Aortic Valve AoV Peak Flkynbti73.5cm/sAoV VTI18.4cmAO Peak GR.4mmHg LVOT Peak Bkrpbqqk57.6cm/sLVOT VTI17.65cmAO Mean GR.2mmHg Mitral Valve MV E Fpiwhvnj62.7cm/sMV DECEL [id number] A Aoricudy98.6cm/s MV SXF03boI/A ratio0.5MVA (PHT)2.86cm2 TDI Lateral E' Peak V4.48cm/sMedial E' Peak V4.97cm/sE/Lateral E'8.9 E/Medial E'8.0 Tricuspid Valve TR Peak [id number]/sRAP PIYBZKPF96xpFqOQ Peak Gr.19mmHg [id number] LEFT VENTRICLE The left ventricle is normal size. There is normal left ventricular wall thickness. The systolic function is moderately to severely impaired. The estimated ejection fraction is 35-40% Mid to apical anterior wall severe hypokinesis. Transmitral Doppler flow pattern is Grade I-abnormal relaxation pattern. No left ventricle thrombus noted on this study. There is no ventricular septal defect visualized. There is no left ventricular aneurysm. There is no mass noted in the left ventricle. RIGHT VENTRICLE The right ventricle is normal size. There is normal right ventricular wall thickness. The right ventricular systolic function is normal. ATRIA The left atrium size is normal. The right atrium size is normal. The interatrial septum is intact with no evidence for an atrial septal defect. AORTIC VALVE The aortic valve is normal in structure. No aortic regurgitation is present. There is no aortic valvular stenosis. There is no aortic valvular vegetation. MITRAL VALVE The mitral valve is normal in structure. There is no evidence of mitral valve prolapse. There is no mitral valve stenosis. There is no mitral valve regurgitation noted. TRICUSPID VALVE The tricuspid valve is normal in structure. There is mild tricuspid valve regurgitation noted. RVSP is calculated at 25 mm Hg. There is no tricuspid valve prolapse or vegetation. There is no tricuspid valve stenosis. PULMONIC VALVE The pulmonary valve is normal in structure. There is no pulmonic valvular regurgitation. There is no pulmonic valvular stenosis. GREAT VESSELS The aortic root is normal in size. The ascending aorta is normal in size. The pulmonary artery is normal. The IVC is normal in size and collapses >50% with inspiration. PERICARDIAL EFFUSION There is no pericardial effusion. There is no pleural effusion. <Conclusion> Technically difficult study The systolic function is moderately to severely impaired. The estimated ejection fraction is 35-40% Mid to apical anterior wall severe hypokinesis. Transmitral Doppler flow pattern is Grade I-abnormal relaxation pattern. There is mild tricuspid valve regurgitation noted. RVSP is calculated at 25 mm Hg.
--- NOTE | 2018-07-24 23:01 | CP.PCM.CON ---
History of Present Illness - History of Present Illness History of Present Illness: 68 yo F w of CAD status post stent last year, HTN, COPD, Subclavian steal syndrome, anemia, s/p ileostomy creation, and chronic hyponatremia, presented to ED with progressive shortness of breath; nephrology being consulted for hyponatremia; Patient reports increased dyspnea lately; also with increased leg swelling that is new since past few weeks; reports chest pain that she thinks is related to anxiety; has irregular appetite but eats adequate protein diet (fish, chicken for dinner); reports emptying ileostomy bag about 7-8 times per day and drinks about 3-4 sixteen oz bottles of water daily; adheres to low sodium diet; has kn own about hyponatremia for quite a while and reports having been on salt tabs previously but wasn't able to tolerate them; Patient additionally found to have NSTEMI with concern for anterior wall VT; however, she is currently refusing cardiac intervention due to previous complications that she had with cardiac cath; Review of Systems - Constitutional Constitutional: absent: Anorexia - EENT Eyes: absent: Change in Vision Nose/Mouth/Throat: Sore Throat - Respiratory Respiratory: Cough, Dyspnea - Gastrointestinal Gastrointestinal: As Per HPI - Genitourinary Genitourinary: absent: Difficulty Urinating, Dysuria - Musculoskeletal Musculoskeletal: Back Pain Additional comments: takes only tylenol arthritis, rarely takes dilaudid - Integumentary Integumentary: Unusual Bruising - Neurological Neurological: absent: Dizziness - Psychiatric Psychiatric: Anxiety - Hematologic/Lymphatic Hematologic: Easy Bruising Past Patient History - Past Medical History & Family History Past Medical History?: Yes Past Family History: Reviewed and not pertinent Pertinent Family History: heart disease - Past Social History Smoking Status: Light Smoker < 10 Cigarettes Daily Alcohol: Social Drugs: Denies - CARDIAC Hx Hypercholesterolemia: Yes Hx Hypertension: Yes - PULMONARY Hx Chronic Obstructive Pulmonary Disease (COPD): Yes Hx Emphysema: Yes - NEUROLOGICAL Hx Neurological Disorder: Yes Other/Comment: FIBROMYALGIA - HEENT Hx HEENT Problems: No - RENAL Hx Chronic Kidney Disease: No - ENDOCRINE/METABOLIC Hx Endocrine Disorders: No - HEMATOLOGICAL/ONCOLOGICAL Hx Anemia: Yes Hx Human Immunodeficiency Virus (HIV): No - INTEGUMENTARY Hx Dermatological Problems: No - MUSCULOSKELETAL/RHEUMATOLOGICAL Hx Musculoskeletal Disorders: No Hx Falls: Yes - GASTROINTESTINAL Hx Gastrointestinal Disorders: Yes Hx Ileostomy: Yes - GENITOURINARY/GYNECOLOGICAL Hx Genitourinary Disorders: No - PSYCHIATRIC Hx Anxiety: Yes Hx Depression: Yes - SURGICAL HISTORY Hx Cholecystectomy: Yes - ANESTHESIA Hx Anesthesia: Yes Hx Anesthesia Reactions: No Hx Malignant Hyperthermia: No Meds Allergies/Adverse Reactions: Allergies Allergy/AdvReac Type Severity Reaction Status Date / Time Sulfa (Sulfonamide Allergy crystallized Verified 09/15/17 12:38 Antibiotics) kidneys - Medications Medications: Current Medications Acetaminophen (Tylenol 325mg Tab) 650 mg PO Q6 PRN PRN Reason: Headache Last Admin: 07/23/18 22:24 Dose: 650 mg Acetylcysteine (Acetylcysteine 20%) 2 ml INH RBID [facility] Last Admin: 07/24/18 19:59 Dose: 2 ml Albuterol/Ipratropium (Duoneb 3 Mg/0.5 Mg (3 Ml) Ud) 3 ml INH RQ4 [facility] Last Admin: 07/24/18 19:59 Dose: 3 ml Alprazolam (Xanax) 0.5 mg PO Q8 PRN PRN Reason: Anxiety Last Admin: 07/24/18 16:33 Dose: 0.5 mg Aspirin (Ecotrin) 325 mg PO DAILY [facility] Last Admin: 07/24/18 08:17 Dose: 325 mg Atorvastatin Calcium (Lipitor) 20 mg PO DAILY [facility] Last Admin: 07/24/18 08:18 Dose: 20 mg Budesonide (Pulmicort Respules) 0.25 mg INH RBID [facility] Last Admin: 07/24/18 20:01 Dose: Not Given Clopidogrel Bisulfate (Plavix) 75 mg PO DAILY [facility] Last Admin: 07/24/18 08:21 Dose: 75 mg Cyanocobalamin (Vitamin B12 1000 Mcg/Ml Inj) 1,000 mcg IM Q14D [facility] Last Admin: 07/23/18 10:17 Dose: 1,000 mcg Enoxaparin Sodium (Lovenox) 45 mg SC Q12 [facility]; Protocol Last Admin: 07/24/18 08:18 Dose: 45 mg Ergocalciferol (Drisdol 50,000 Intl Units Cap) 1 cap PO MO [facility] Fluticasone Propionate (Flonase) 2 spr PRATIBHA HS PRN PRN Reason: Allergy symptoms Last Admin: 07/24/18 19:13 Dose: 2 spr Furosemide (Lasix) 20 mg PO DAILY [facility] Hydromorphone HCl (Dilaudid) 1 mg PO Q4 PRN PRN Reason: Pain, severe (8-10) Azithromycin 500 mg/ Sodium (Chloride) 250 mls @ 250 mls/hr IVPB DAILY [facility]; Protocol Last Admin: 07/24/18 08:27 Dose: 250 mls/hr Isosorbide Mononitrate (Imdur Er) 30 mg PO DAILY [facility] Last Admin: 07/24/18 08:17 Dose: 30 mg Losartan Potassium (Cozaar) 25 mg PO DAILY [facility] Last Admin: 07/24/18 08:17 Dose: 25 mg Methylprednisolone (Solu-Medrol) 60 mg IVP Q8 [facility] Last Admin: 07/24/18 16:25 Dose: 60 mg Metoprolol Succinate (Toprol Xl) 25 mg PO DAILY [facility] Last Admin: 07/24/18 08:16 Dose: 25 mg Multivitamins/Minerals (Therapeutic-M Tab) 1 tab PO DAILY [facility] Last Admin: 07/24/18 08:16 Dose: 1 tab Nicotine (Nicoderm Cq) 1 patch TD DAILY [facility] Last Admin: 07/24/18 08:19 Dose: 1 patch Nitroglycerin (Nitrostat Sl Tab) 0.4 mg SL DAILY PRN PRN Reason: chest pain Octreotide Acetate (Sandostatin) 100 mcg SC Q12 [facility] Last Admin: 07/24/18 22:18 Dose: 100 mcg Oseltamivir Phosphate (Tamiflu Cap) 75 mg PO BID [facility]; Protocol Last Admin: 07/24/18 16:26 Dose: 75 mg Pantoprazole Sodium (Protonix Ec Tab) 40 mg PO DAILY [facility] Last Admin: 07/24/18 08:17 Dose: 40 mg Sodium Chloride (Sodium Chloride Tab) 1 gm PO DAILY [facility] Last Admin: 07/24/18 08:20 Dose: 1 gm Trazodone HCl (Desyrel) 100 mg PO HS [facility] Last Admin: 07/23/18 21:26 Dose: 100 mg Zolpidem Tartrate (Ambien) 5 mg PO HS PRN PRN Reason: Insomnia Physical Exam - Constitutional Appears: Non-toxic, No Acute Distress - Eye Exam Eye Exam: Normal appearance - ENT Exam ENT Exam: Mucous Membranes Dry - Respiratory Exam Respiratory Exam: absent: Rhonchi, Wheezes, Respiratory Distress Additional comments: mild b/l basal rales; - Cardiovascular Exam Cardiovascular Exam: RRR, +S1, +S2. absent: Gallop, JVD, Rubs - GI/Abdominal Exam GI & Abdominal Exam: Soft. absent: Distended, Tenderness - Exam Exam: absent: Bladder Distension - Extremities Exam Additional comments: minimal lower leg edema; - Neurological Exam Neurological exam: Alert, Oriented x3 - Psychiatric Exam Psychiatric exam: Normal Affect, Normal Mood - Skin Skin Exam: Normal Color, Warm Results - Vital Signs Recent Vital Signs: Last Vital Signs Temp 98.6 F 07/24/18 19:51 Pulse 77 07/24/18 19:51 Resp 18 07/24/18 19:51 BP 116/72 07/24/18 19:51 Pulse Ox 95 07/24/18 19:51 - Labs Result Diagrams: 07/24/18 10:35 07/24/18 08:06 Labs: Laboratory Results - last 24 hr 07/23/18 07/24/18 07/24/18 23:25 00:55 06:40 WBC RBC Hgb Hct MCV MCH MCHC RDW Plt Count MPV Neut % (Auto) Lymph % (Auto) [place] % (Auto) Eos % (Auto) Baso % (Auto) Neut # (Auto) Lymph # (Auto) [place] # (Auto) Eos # (Auto) Baso # (Auto) Neutrophils % (Manual) Band Neutrophils % Lymphocytes % (Manual) Monocytes % (Manual) Platelet Estimate RBC Morphology PT INR Sodium Potassium Chloride Carbon Dioxide Anion Gap BUN Creatinine Est GFR ( Amer) Est GFR (Non-Af Amer) Random Glucose Serum Osmolality 269 L Calcium Magnesium Troponin I 1.9600 H* NT-Pro-B Natriuret Pep Urine Osmolality 472 Ur Random Sodium < 5 07/24/18 07/24/18 07/24/18 08:06 10:35 13:14 WBC 11.1 H RBC 3.54 L Hgb 11.9 L D Hct 35.7 MCV 100.7 H MCH 33.5 H MCHC 33.3 RDW 13.7 Plt Count 161 MPV 7.7 Neut % (Auto) 91.8 H Lymph % (Auto) 3.4 L [place] % (Auto) 4.7 Eos % (Auto) 0.0 Baso % (Auto) 0.1 Neut # (Auto) 10.2 H Lymph # (Auto) 0.4 L [place] # (Auto) 0.5 Eos # (Auto) 0.0 Baso # (Auto) 0.0 Neutrophils % (Manual) 84 H Band Neutrophils % 7 H Lymphocytes % (Manual) 4 L Monocytes % (Manual) 5 Platelet Estimate Normal RBC Morphology Normal PT 11.3 INR 1.0 Sodium 125 L Potassium 4.8 Chloride 91 L Carbon Dioxide 29 Anion Gap 10 BUN 16 Creatinine 0.8 Est GFR ( Amer) > 60 Est GFR (Non-Af Amer) > 60 Random Glucose 127 H Serum Osmolality Calcium 8.6 Magnesium 1.8 Troponin I 1.4700 H* NT-Pro-B Natriuret Pep 06316 H Urine Osmolality Ur Random Sodium - Imaging and Cardiology Chest x-ray Status: Image reviewed by me Additional comment: lungs clear Assessment & Plan (1) Hyponatremia Assessment and Plan: Mostly chronic with mild worsening on admission labs (Na 123 on chem panel, ABG result of 119 not accurate); virtually undetectable urine sodium is consistent with decreased effective arterial blood volume as the stimulus; clinically no evidence of being heart failure; appears dry on exam and is likely volume depleted, consistent with history of excessive ileostomy losses despite having hypertensive readings at times; -Agree with salt tabs if patient can tolerate them; -Recommend high sodium diet to avoid volume depletion (which is likely chronic); -Starting lasix 20 mg every other day to decrease urinary concentrating ability (will help alleviate degree of hyponatremia as long as patient adheres to some degree of PO fluid restriction); -Giving dose of tolvaptan; will try to get her tolvaptan as outpatient; Status: Acute (2) Chronic congestive heart failure Assessment and Plan: Systolic dysfunction but not currently in failure; continue B-jag/CATHLEEN inhibitor per cardio; Status: Chronic Priority: Medium (3) Hypertension Assessment and Plan: On toprol XL, losartan and imdur; BP controlled, continue; Status: Chronic Priority: Low
--- NOTE | 2018-07-24 23:03 | CP.PCM.PN ---
Subjective - Date & Time of Evaluation Date of Evaluation: 07/24/18 Objective - Vital Signs/Intake and Output Vital Signs (last 24 hours): Temp Pulse Resp BP Pulse Ox 98.6 F 77 18 116/72 95 07/24/18 19:51 07/24/18 19:51 07/24/18 19:51 07/24/18 19:51 07/24/18 19:51 - Medications Medications: Current Medications Acetaminophen (Tylenol 325mg Tab) 650 mg PO Q6 PRN PRN Reason: Headache Last Admin: 07/23/18 22:24 Dose: 650 mg Acetylcysteine (Acetylcysteine 20%) 2 ml INH RBID [facility] Last Admin: 07/24/18 19:59 Dose: 2 ml Albuterol/Ipratropium (Duoneb 3 Mg/0.5 Mg (3 Ml) Ud) 3 ml INH RQ4 [facility] Last Admin: 07/24/18 19:59 Dose: 3 ml Alprazolam (Xanax) 0.5 mg PO Q8 PRN PRN Reason: Anxiety Last Admin: 07/24/18 16:33 Dose: 0.5 mg Aspirin (Ecotrin) 325 mg PO DAILY [facility] Last Admin: 07/24/18 08:17 Dose: 325 mg Atorvastatin Calcium (Lipitor) 20 mg PO DAILY [facility] Last Admin: 07/24/18 08:18 Dose: 20 mg Budesonide (Pulmicort Respules) 0.25 mg INH RBID [facility] Last Admin: 07/24/18 20:01 Dose: Not Given Clopidogrel Bisulfate (Plavix) 75 mg PO DAILY [facility] Last Admin: 07/24/18 08:21 Dose: 75 mg Cyanocobalamin (Vitamin B12 1000 Mcg/Ml Inj) 1,000 mcg IM Q14D [facility] Last Admin: 07/23/18 10:17 Dose: 1,000 mcg Enoxaparin Sodium (Lovenox) 45 mg SC Q12 [facility]; Protocol Last Admin: 07/24/18 08:18 Dose: 45 mg Ergocalciferol (Drisdol 50,000 Intl Units Cap) 1 cap PO MO [facility] Fluticasone Propionate (Flonase) 2 spr PRATIBHA HS PRN PRN Reason: Allergy symptoms Last Admin: 07/24/18 19:13 Dose: 2 spr Furosemide (Lasix) 20 mg PO DAILY [facility] Hydromorphone HCl (Dilaudid) 1 mg PO Q4 PRN PRN Reason: Pain, severe (8-10) Azithromycin 500 mg/ Sodium (Chloride) 250 mls @ 250 mls/hr IVPB DAILY [facility]; Protocol Last Admin: 07/24/18 08:27 Dose: 250 mls/hr Isosorbide Mononitrate (Imdur Er) 30 mg PO DAILY [facility] Last Admin: 07/24/18 08:17 Dose: 30 mg Losartan Potassium (Cozaar) 25 mg PO DAILY [facility] Last Admin: 07/24/18 08:17 Dose: 25 mg Methylprednisolone (Solu-Medrol) 60 mg IVP Q8 [facility] Last Admin: 07/24/18 16:25 Dose: 60 mg Metoprolol Succinate (Toprol Xl) 25 mg PO DAILY [facility] Last Admin: 07/24/18 08:16 Dose: 25 mg Multivitamins/Minerals (Therapeutic-M Tab) 1 tab PO DAILY [facility] Last Admin: 07/24/18 08:16 Dose: 1 tab Nicotine (Nicoderm Cq) 1 patch TD DAILY [facility] Last Admin: 07/24/18 08:19 Dose: 1 patch Nitroglycerin (Nitrostat Sl Tab) 0.4 mg SL DAILY PRN PRN Reason: chest pain Octreotide Acetate (Sandostatin) 100 mcg SC Q12 [facility] Last Admin: 07/24/18 22:18 Dose: 100 mcg Oseltamivir Phosphate (Tamiflu Cap) 75 mg PO BID [facility]; Protocol Last Admin: 07/24/18 16:26 Dose: 75 mg Pantoprazole Sodium (Protonix Ec Tab) 40 mg PO DAILY [facility] Last Admin: 07/24/18 08:17 Dose: 40 mg Sodium Chloride (Sodium Chloride Tab) 1 gm PO DAILY [facility] Last Admin: 07/24/18 08:20 Dose: 1 gm Trazodone HCl (Desyrel) 100 mg PO HS [facility] Last Admin: 07/23/18 21:26 Dose: 100 mg Zolpidem Tartrate (Ambien) 5 mg PO HS PRN PRN Reason: Insomnia - Labs Labs: 07/24/18 10:35 07/24/18 08:06 PT 11.3 Seconds (9.8-13.1) 07/24/18 13:14 INR 1.0 07/24/18 13:14 Assessment and Plan (1) Influenza A H1N1 infection Status: Acute (2) COPD exacerbation Status: Acute (3) NSTEMI (non-ST elevated myocardial infarction) Status: Acute (4) Hyponatremia Status: Acute (5) Chronic congestive heart failure Status: Acute (6) Anxiety disorder Status: Acute (7) Hypertension Status: Chronic
[2018-07-25] MEDS: Mag&Al/Simet/Diphen/Lido 237 ML KIT MM SCH ×4 (00:35→17:28)
[2018-07-25] MEDS: Albuterol-Ipratrop 3 mg / 0.5 (3 ml) UD INH SCH ×6 (04:45→23:00)
[2018-07-25] MEDS: Acetylcysteine 20% Inhal Soln (4ml) INH SCH ×2 (08:05→19:10)
[2018-07-25] MEDS: Budesonide 0.25 mg/2 ml Inhal Susp UD INH SCH ×2 (08:05→19:10)
[2018-07-25] MEDS ORDERED: Tolvaptan 15 MG TAB PO ONE (09:12)
[2018-07-25] MEDS: Azithromycin 500 MG in Sodium Chloride 0.9% 250 ML IVPB SCH (10:13)
[2018-07-25] MEDS: Aspirin 325 mg EC Tablets PO SCH (10:22)
[2018-07-25] MEDS: Multivitamin With Minerals Tab PO SCH (10:23)
[2018-07-25] MEDS: Metoprolol Succinate 25 mg XL Tab PO SCH (10:25)
[2018-07-25] MEDS: Pantoprazole 40 mg EC Tab PO SCH (10:26)
--- NOTE | 2018-07-25 11:01 | CP.PCM.PN ---
Subjective - Date & Time of Evaluation Date of Evaluation: 07/25/18 Time of Evaluation: 11:02 - Subjective Subjective: SOB IMPROVING C/O DRY MOUTH REQUESTS A COUGH SYRUP Objective - Vital Signs/Intake and Output Vital Signs (last 24 hours): Temp Pulse Resp BP Pulse Ox 98.0 F 78 18 110/68 96 07/25/18 07:38 07/25/18 10:25 07/25/18 07:38 07/25/18 10:25 07/25/18 07:38 - Medications Medications: Current Medications Acetaminophen (Tylenol 325mg Tab) 650 mg PO Q6 PRN PRN Reason: Headache Last Admin: 07/23/18 22:24 Dose: 650 mg Acetylcysteine (Acetylcysteine 20%) 2 ml INH RBID [facility] Last Admin: 07/25/18 08:05 Dose: 2 ml Albuterol/Ipratropium (Duoneb 3 Mg/0.5 Mg (3 Ml) Ud) 3 ml INH RQ4 [facility] Last Admin: 07/25/18 08:05 Dose: 3 ml Alprazolam (Xanax) 0.5 mg PO Q8 PRN PRN Reason: Anxiety Last Admin: 07/24/18 16:33 Dose: 0.5 mg Aspirin (Ecotrin) 325 mg PO DAILY [facility] Last Admin: 07/25/18 10:22 Dose: 325 mg Atorvastatin Calcium (Lipitor) 20 mg PO DAILY [facility] Last Admin: 07/25/18 10:22 Dose: 20 mg Budesonide (Pulmicort Respules) 0.25 mg INH RBID [facility] Last Admin: 07/25/18 08:05 Dose: Not Given Clopidogrel Bisulfate (Plavix) 75 mg PO DAILY [facility] Last Admin: 07/25/18 10:22 Dose: 75 mg Cyanocobalamin (Vitamin B12 1000 Mcg/Ml Inj) 1,000 mcg IM Q14D [facility] Last Admin: 07/23/18 10:17 Dose: 1,000 mcg Enoxaparin Sodium (Lovenox) 45 mg SC Q12 [facility]; Protocol Last Admin: 07/24/18 08:18 Dose: 45 mg Ergocalciferol (Drisdol 50,000 Intl Units Cap) 1 cap PO MO [facility] Fluticasone Propionate (Flonase) 2 spr PRATIBHA HS PRN PRN Reason: Allergy symptoms Last Admin: 07/25/18 10:27 Dose: 2 spr Furosemide (Lasix) 20 mg PO DAILY [facility] Last Admin: 07/25/18 05:20 Dose: Not Given Hydromorphone HCl (Dilaudid) 1 mg PO Q4 PRN PRN Reason: Pain, severe (8-10) Azithromycin 500 mg/ Sodium (Chloride) 250 mls @ 250 mls/hr IVPB DAILY [facility]; Protocol Last Admin: 07/25/18 10:13 Dose: 250 mls/hr Isosorbide Mononitrate (Imdur Er) 30 mg PO DAILY [facility] Last Admin: 07/25/18 10:17 Dose: 30 mg Losartan Potassium (Cozaar) 25 mg PO DAILY [facility] Last Admin: 07/25/18 10:19 Dose: 25 mg Methylprednisolone (Solu-Medrol) 60 mg IVP Q8 [facility] Last Admin: 07/25/18 10:43 Dose: 60 mg Metoprolol Succinate (Toprol Xl) 25 mg PO DAILY [facility] Last Admin: 07/25/18 10:25 Dose: 25 mg Multivitamins/Minerals (Therapeutic-M Tab) 1 tab PO DAILY [facility] Last Admin: 07/25/18 10:23 Dose: 1 tab Nicotine (Nicoderm Cq) 1 patch TD DAILY [facility] Last Admin: 07/25/18 10:23 Dose: 1 patch Nitroglycerin (Nitrostat Sl Tab) 0.4 mg SL DAILY PRN PRN Reason: chest pain Octreotide Acetate (Sandostatin) 100 mcg SC Q12 [facility] Last Admin: 07/24/18 22:18 Dose: 100 mcg Oseltamivir Phosphate (Tamiflu Cap) 75 mg PO BID [facility]; Protocol Last Admin: 07/25/18 10:21 Dose: 75 mg Pantoprazole Sodium (Protonix Ec Tab) 40 mg PO DAILY [facility] Last Admin: 07/25/18 10:26 Dose: 40 mg Promethazine HCl/Codeine (Phenergan/Codeine Oral Syrup) 10 ml PO Q6 PRN PRN Reason: Cough Saliva Substitute (First Magic Mouthwash) 5 ml MM TID [facility] Last Admin: 07/25/18 10:53 Dose: 5 ml Sodium Chloride (Sodium Chloride Tab) 1 gm PO DAILY [facility] Last Admin: 07/25/18 10:23 Dose: 1 gm Trazodone HCl (Desyrel) 100 mg PO HS [facility] Last Admin: 07/24/18 22:30 Dose: 100 mg Zolpidem Tartrate (Ambien) 5 mg PO HS PRN PRN Reason: Insomnia - Labs Labs: 07/24/18 10:35 07/24/18 08:06 PT 11.3 Seconds (9.8-13.1) 07/24/18 13:14 INR 1.0 07/24/18 13:14 - Constitutional Appears: Chronically Ill - Head Exam Head Exam: ATRAUMATIC, NORMAL INSPECTION, NORMOCEPHALIC - Eye Exam Eye Exam: EOMI, Normal appearance, PERRL Pupil Exam: NORMAL ACCOMODATION, PERRL - ENT Exam ENT Exam: Mucous Membranes Moist, Normal Exam - Neck Exam Neck Exam: Full ROM, Normal Inspection. absent: Lymphadenopathy - Respiratory Exam Respiratory Exam: Decreased Breath Sounds, Prolonged Expiratory Phase, Rales, Wheezes, NORMAL BREATHING PATTERN - Cardiovascular Exam Cardiovascular Exam: REGULAR RHYTHM, +S1, +S2. absent: Murmur - GI/Abdominal Exam GI & Abdominal Exam: Soft, Normal Bowel Sounds. absent: Tenderness - Rectal Exam Rectal Exam: NORMAL INSPECTION - Exam External exam: NORMAL EXTERNAL EXAM - Extremities Exam Extremities Exam: Full ROM, Normal Capillary Refill, Normal Inspection. absent: Joint Swelling, Pedal Edema - Back Exam Back Exam: NORMAL INSPECTION - Neurological Exam Neurological Exam: Alert, Awake, CN II-XII Intact, Normal Gait, Oriented x3 - Psychiatric Exam Psychiatric exam: Anxious - Skin Skin Exam: Dry, Intact, Warm Additional comments: HEMATOMA L GROIN Assessment and Plan - Assessment and Plan (Free Text) Assessment: COPD EXAC S/P ACUTE LA URI ANXIETY HEMATOMA L GROIN Plan: CONTINUE RX ORDERED WILL FOLLOW CONTINUES TO REFUSE CARDIAC CATH AND INDICATES THAT SHE IS A DNR/DNI
[2018-07-25] MEDS: Promethazine/Cod 6.25mg-10mg/5ml Syr UD PO PRN (11:38)
--- NOTE | 2018-07-25 12:49 | CP.PCM.PN ---
Subjective - Date & Time of Evaluation Date of Evaluation: 07/25/18 Time of Evaluation: 11:45 - Subjective Subjective: NO CHEST PAIN BREATHING BETTER Objective - Vital Signs/Intake and Output Vital Signs (last 24 hours): Temp Pulse Resp BP Pulse Ox 97.5 F L 107 H 18 118/68 94 L 07/25/18 11:47 07/25/18 11:47 07/25/18 11:47 07/25/18 11:47 07/25/18 11:47 - Medications Medications: Current Medications Acetaminophen (Tylenol 325mg Tab) 650 mg PO Q6 PRN PRN Reason: Headache Last Admin: 07/23/18 22:24 Dose: 650 mg Acetylcysteine (Acetylcysteine 20%) 2 ml INH RBID [facility] Last Admin: 07/25/18 08:05 Dose: 2 ml Albuterol/Ipratropium (Duoneb 3 Mg/0.5 Mg (3 Ml) Ud) 3 ml INH RQ4 [facility] Last Admin: 07/25/18 12:14 Dose: 3 ml Alprazolam (Xanax) 0.5 mg PO Q8 PRN PRN Reason: Anxiety Last Admin: 07/25/18 11:05 Dose: 0.5 mg Aspirin (Ecotrin) 325 mg PO DAILY [facility] Last Admin: 07/25/18 10:22 Dose: 325 mg Atorvastatin Calcium (Lipitor) 20 mg PO DAILY [facility] Last Admin: 07/25/18 10:22 Dose: 20 mg Budesonide (Pulmicort Respules) 0.25 mg INH RBID [facility] Last Admin: 07/25/18 08:05 Dose: Not Given Clopidogrel Bisulfate (Plavix) 75 mg PO DAILY [facility] Last Admin: 07/25/18 10:22 Dose: 75 mg Cyanocobalamin (Vitamin B12 1000 Mcg/Ml Inj) 1,000 mcg IM Q14D [facility] Last Admin: 07/23/18 10:17 Dose: 1,000 mcg Enoxaparin Sodium (Lovenox) 45 mg SC Q12 [facility]; Protocol Last Admin: 07/24/18 08:18 Dose: 45 mg Ergocalciferol (Drisdol 50,000 Intl Units Cap) 1 cap PO MO [facility] Fluticasone Propionate (Flonase) 2 spr PRATIBHA HS PRN PRN Reason: Allergy symptoms Last Admin: 07/25/18 10:27 Dose: 2 spr Furosemide (Lasix) 20 mg PO Q48H [facility] Hydromorphone HCl (Dilaudid) 1 mg PO Q4 PRN PRN Reason: Pain, severe (8-10) Azithromycin 500 mg/ Sodium (Chloride) 250 mls @ 250 mls/hr IVPB DAILY [facility]; Protocol Last Admin: 07/25/18 10:13 Dose: 250 mls/hr Isosorbide Mononitrate (Imdur Er) 30 mg PO DAILY [facility] Last Admin: 07/25/18 10:17 Dose: 30 mg Losartan Potassium (Cozaar) 25 mg PO DAILY [facility] Last Admin: 07/25/18 10:19 Dose: 25 mg Methylprednisolone (Solu-Medrol) 60 mg IVP Q8 [facility] Last Admin: 07/25/18 10:43 Dose: 60 mg Metoprolol Succinate (Toprol Xl) 25 mg PO DAILY [facility] Last Admin: 07/25/18 10:25 Dose: 25 mg Multivitamins/Minerals (Therapeutic-M Tab) 1 tab PO DAILY [facility] Last Admin: 07/25/18 10:23 Dose: 1 tab Nicotine (Nicoderm Cq) 1 patch TD DAILY [facility] Last Admin: 07/25/18 10:23 Dose: 1 patch Nitroglycerin (Nitrostat Sl Tab) 0.4 mg SL DAILY PRN PRN Reason: chest pain Octreotide Acetate (Sandostatin) 100 mcg SC Q12 [facility] Last Admin: 07/25/18 11:40 Dose: 100 mcg Oseltamivir Phosphate (Tamiflu Cap) 75 mg PO BID [facility]; Protocol Last Admin: 07/25/18 10:21 Dose: 75 mg Pantoprazole Sodium (Protonix Ec Tab) 40 mg PO DAILY [facility] Last Admin: 07/25/18 10:26 Dose: 40 mg Promethazine HCl/Codeine (Phenergan/Codeine Oral Syrup) 10 ml PO Q6 PRN PRN Reason: Cough Last Admin: 07/25/18 11:38 Dose: 10 ml Saliva Substitute (First Magic Mouthwash) 5 ml MM TID [facility] Last Admin: 07/25/18 10:53 Dose: 5 ml Sodium Chloride (Sodium Chloride Tab) 1 gm PO DAILY [facility] Last Admin: 07/25/18 10:23 Dose: 1 gm Trazodone HCl (Desyrel) 100 mg PO HS [facility] Last Admin: 07/24/18 22:30 Dose: 100 mg Zolpidem Tartrate (Ambien) 5 mg PO HS PRN PRN Reason: Insomnia - Labs Labs: 07/24/18 10:35 07/24/18 08:06 PT 11.3 Seconds (9.8-13.1) 07/24/18 13:14 INR 1.0 07/24/18 13:14 - Respiratory Exam Respiratory Exam: Clear to Ausculation Bilateral - Cardiovascular Exam Cardiovascular Exam: REGULAR RHYTHM, +S1, +S2 - Extremities Exam Additional comments: NO LE EDEMA Assessment and Plan - Assessment and Plan (Free Text) Assessment: CAD WITH OLD AWMI AND NEW NE IN SAME AREA(PROBABLE EXTENSION)-CHEST PAIN FREE HYPERTENSION COPD WITH INFLUENZA Plan: CONTINUE ASPIRIN, CLOPIDOGREL, LOVENOX, METOPROLOL, LOSARTAN, NITRATES, ANTIBIOTICS, TAMIFLU, COPD MEDS
--- NOTE | 2018-07-25 13:27 | PQF ---
PROVIDER RESPONSE TEXT: Acute on Chronic Systolic CHF REVIEWER QUERY TEXT: Conflicting Documentation Clarification 2 (two) queries: 1. Please clarify if CHF is Chronic versus Acute : for this encounter. 2. Please clarify the Type of CHF if known Such as: Type: -- Systolic -- Diastolic -- Combined -- Other, please specify Acuity: -- Acute -- Chronic -- Acute on chronic -- Other, please specify --Or: Unable to determine ProBNP: [id number] 07/23 CXR: Lungs are hyperinflated with flattening of the diaphragms which can be seen in COPD. mild left basilar atelectasis. H and P: includes: Chronic congestive heart failure Status: Acute Priority: Medium 07/24 Pulmonary progress note includes: - Respiratory Exam: Decreased Breath Sounds, Prolonged Expirat ory Phase, Rales, Wheezes, NORMAL BREATHING PATTERN The patient's Clinical Indicators include: -- Query created by: Yoselin Jasmine on 07/24/2018 12:39 PM Electronically signed by: Ana Gonzales MD 07/25/2018 1:24 PM
[2018-07-25 14:39] LABS: LYMPH # 0.2 K/uL (1.0-4.3); LYMPH % 1.8 % (20.0-40.0); MEAN CORPUSCULAR HEMOGLOBIN 33.6 pg (27.0-31.0); MEAN CORPUSCULAR HGB CONC 33.2 g/dL (33.0-37.0); MEAN PLATELET VOLUME 7.3 fl (7.2-11.7); MONO # 0.5 K/uL (0.0-0.8); MONO % 4.7 % (0.0-10.0); NEUT # 10.7 K/uL (1.8-7.0); NEUT % 93.5 % (50.0-75.0); NRBC % 0.1 % (0.0-0.0); PLATELET COUNT 178 K/uL (130-400); RBC 2.98 Mil/uL (3.80-5.20); RED CELL DISTRIBUTION WIDTH 13.6 % (11.5-14.5); WHITE BLOOD COUNT 11.4 K/uL (4.8-10.8)
[2018-07-25 14:53] LABS: ALB/GLOB RATIO 0.9 (1.0-2.1); ALBUMIN 2.5 g/dL (3.5-5.0); ALT/SGPT 28 U/L (9-52); AST/SGOT 35 U/L (14-36); BLOOD UREA NITROGEN 17 mg/dl (7-17); CALCIUM 8.8 mg/dL (8.4-10.2); GFR NON-AFRICAN AMERICAN > 60
[2018-07-25 15:25] LABS: BANDS 6 % (0-2); BURR CELLS SLIGHT; HYPOCHROMIC SLIGHT; LYMPHOCYTE 3 % (20-50); METAMYELOCYTE 1 % (0-0); MONOCYTE 6 % (0-10); NEUTROPHIL 84 % (42-75); OVALOCYTES SLIGHT; PLATELET ESTIMATE NORMAL (NORMAL); TOTAL CELLS COUNTED 100
[2018-07-25 15:26] LABS: LARGE PLATELETS PRESENT
[2018-07-25] MEDS ORDERED: Sodium Chloride 0.9% 500 ML IV SCH (23:45)
--- NOTE | 2018-07-25 23:56 | CP.PCM.PN ---
Subjective - Date & Time of Evaluation Date of Evaluation: 07/25/18 Time of Evaluation: 12:30 - Subjective Subjective: Patient reporting anxiety; per nursing, empties out ostomy on her own, cannot say how many times; still reports dry mouth; Objective - Vital Signs/Intake and Output Vital Signs (last 24 hours): Temp Pulse Resp BP Pulse Ox 97.3 F L 83 20 95/57 L 94 L 07/25/18 20:06 07/25/18 20:06 07/25/18 20:06 07/25/18 20:06 07/25/18 20:06 - Medications Medications: Current Medications Acetaminophen (Tylenol 325mg Tab) 650 mg PO Q6 PRN PRN Reason: Headache Last Admin: 07/23/18 22:24 Dose: 650 mg Acetylcysteine (Acetylcysteine 20%) 2 ml INH RBID [facility] Last Admin: 07/25/18 19:10 Dose: 2 ml Albuterol/Ipratropium (Duoneb 3 Mg/0.5 Mg (3 Ml) Ud) 3 ml INH RQ4 [facility] Last Admin: 07/25/18 23:00 Dose: 3 ml Alprazolam (Xanax) 0.5 mg PO Q8 PRN PRN Reason: Anxiety Last Admin: 07/25/18 11:05 Dose: 0.5 mg Aspirin (Ecotrin) 325 mg PO DAILY [facility] Last Admin: 07/25/18 10:22 Dose: 325 mg Atorvastatin Calcium (Lipitor) 20 mg PO DAILY [facility] Last Admin: 07/25/18 10:22 Dose: 20 mg Budesonide (Pulmicort Respules) 0.25 mg INH RBID [facility] Last Admin: 07/25/18 19:10 Dose: Not Given Clopidogrel Bisulfate (Plavix) 75 mg PO DAILY [facility] Last Admin: 07/25/18 10:22 Dose: 75 mg Cyanocobalamin (Vitamin B12 1000 Mcg/Ml Inj) 1,000 mcg IM Q14D [facility] Last Admin: 07/23/18 10:17 Dose: 1,000 mcg Enoxaparin Sodium (Lovenox) 45 mg SC Q12 [facility]; Protocol Last Admin: 07/24/18 08:18 Dose: 45 mg Ergocalciferol (Drisdol 50,000 Intl Units Cap) 1 cap PO MO [facility] Fluticasone Propionate (Flonase) 2 spr PRATIBHA HS PRN PRN Reason: Allergy symptoms Last Admin: 07/25/18 10:27 Dose: 2 spr Furosemide (Lasix) 20 mg PO Q48H [facility] Hydromorphone HCl (Dilaudid) 1 mg PO Q4 PRN PRN Reason: Pain, severe (8-10) Azithromycin 500 mg/ Sodium (Chloride) 250 mls @ 250 mls/hr IVPB DAILY [facility]; Protocol Last Admin: 07/25/18 10:13 Dose: 250 mls/hr Sodium Chloride (Sodium Chloride 0.9%) 500 mls @ 80 mls/hr IV .Q6H15M [facility] Stop: 07/26/18 23:53 Isosorbide Mononitrate (Imdur Er) 30 mg PO DAILY [facility] Last Admin: 07/25/18 10:17 Dose: 30 mg Losartan Potassium (Cozaar) 25 mg PO DAILY [facility] Last Admin: 07/25/18 10:19 Dose: 25 mg Methylprednisolone (Solu-Medrol) 60 mg IVP Q8 [facility] Last Admin: 07/25/18 17:23 Dose: 60 mg Metoprolol Succinate (Toprol Xl) 25 mg PO DAILY [facility] Last Admin: 07/25/18 10:25 Dose: 25 mg Multivitamins/Minerals (Therapeutic-M Tab) 1 tab PO DAILY [facility] Last Admin: 07/25/18 10:23 Dose: 1 tab Nicotine (Nicoderm Cq) 1 patch TD DAILY [facility] Last Admin: 07/25/18 10:23 Dose: 1 patch Nitroglycerin (Nitrostat Sl Tab) 0.4 mg SL DAILY PRN PRN Reason: chest pain Octreotide Acetate (Sandostatin) 100 mcg SC Q12 [facility] Last Admin: 07/25/18 21:30 Dose: 100 mcg Oseltamivir Phosphate (Tamiflu Cap) 75 mg PO BID [facility]; Protocol Last Admin: 07/25/18 17:29 Dose: 75 mg Pantoprazole Sodium (Protonix Ec Tab) 40 mg PO DAILY [facility] Last Admin: 07/25/18 10:26 Dose: 40 mg Promethazine HCl/Codeine (Phenergan/Codeine Oral Syrup) 10 ml PO Q6 PRN PRN Reason: Cough Last Admin: 07/25/18 11:38 Dose: 10 ml Saliva Substitute (First Magic Mouthwash) 5 ml MM TID [facility] Last Admin: 07/25/18 17:28 Dose: 5 ml Sodium Chloride (Sodium Chloride Tab) 1 gm PO DAILY [facility] Last Admin: 07/25/18 10:23 Dose: 1 gm Trazodone HCl (Desyrel) 100 mg PO HS [facility] Last Admin: 07/25/18 21:30 Dose: 100 mg Zolpidem Tartrate (Ambien) 5 mg PO HS PRN PRN Reason: Insomnia - Labs Labs: 07/25/18 14:20 07/25/18 14:20 PT 11.3 Seconds (9.8-13.1) 07/24/18 13:14 INR 1.0 07/24/18 13:14 - Constitutional Appears: Non-toxic, No Acute Distress - Eye Exam Eye Exam: Normal appearance - ENT Exam Additional comments: dry tongue; - Respiratory Exam Respiratory Exam: absent: Rhonchi, Wheezes, Respiratory Distress - Cardiovascular Exam Cardiovascular Exam: RRR. absent: Gallop, Rubs - GI/Abdominal Exam GI & Abdominal Exam: Soft. absent: Distended, Tenderness - Extremities Exam Additional comments: no leg edema; - Neurological Exam Neurological Exam: Alert, Awake - Skin Skin Exam: Warm. absent: Cyanosis Assessment and Plan (1) Hyponatremia Assessment & Plan: Worsened today; given tolvaptan just before labs drawn but appears volume depleted; -giving 500 cc NS overnight at 80 cc/hr (cautiously due to CHF status) ; -holding lasix for now (hasn't gotten any) -continue salt tabs; should be on higher Na diet; Status: Acute (2) Chronic congestive heart failure Assessment & Plan: Continue B-jag/ARB for CHF optimization; Status: Chronic (3) Hypertension Assessment & Plan: Hypotensive at times; consider decreasing imdur dose; Status: Chronic
--- NOTE | 2018-07-26 00:48 | CP.PCM.PN ---
Subjective - Date & Time of Evaluation Date of Evaluation: 07/25/18 Objective - Vital Signs/Intake and Output Vital Signs (last 24 hours): Temp Pulse Resp BP Pulse Ox 97.3 F L 83 20 95/57 L 94 L 07/25/18 20:06 07/25/18 20:06 07/25/18 20:06 07/25/18 20:06 07/25/18 20:06 - Medications Medications: Current Medications Acetaminophen (Tylenol 325mg Tab) 650 mg PO Q6 PRN PRN Reason: Headache Last Admin: 07/23/18 22:24 Dose: 650 mg Acetylcysteine (Acetylcysteine 20%) 2 ml INH RBID [facility] Last Admin: 07/25/18 19:10 Dose: 2 ml Albuterol/Ipratropium (Duoneb 3 Mg/0.5 Mg (3 Ml) Ud) 3 ml INH RQ4 [facility] Last Admin: 07/25/18 23:00 Dose: 3 ml Alprazolam (Xanax) 0.5 mg PO Q8 PRN PRN Reason: Anxiety Last Admin: 07/25/18 11:05 Dose: 0.5 mg Aspirin (Ecotrin) 325 mg PO DAILY [facility] Last Admin: 07/25/18 10:22 Dose: 325 mg Atorvastatin Calcium (Lipitor) 20 mg PO DAILY [facility] Last Admin: 07/25/18 10:22 Dose: 20 mg Budesonide (Pulmicort Respules) 0.25 mg INH RBID [facility] Last Admin: 07/25/18 19:10 Dose: Not Given Clopidogrel Bisulfate (Plavix) 75 mg PO DAILY [facility] Last Admin: 07/25/18 10:22 Dose: 75 mg Cyanocobalamin (Vitamin B12 1000 Mcg/Ml Inj) 1,000 mcg IM Q14D [facility] Last Admin: 07/23/18 10:17 Dose: 1,000 mcg Enoxaparin Sodium (Lovenox) 45 mg SC Q12 [facility]; Protocol Last Admin: 07/24/18 08:18 Dose: 45 mg Ergocalciferol (Drisdol 50,000 Intl Units Cap) 1 cap PO MO [facility] Fluticasone Propionate (Flonase) 2 spr PRATIBHA HS PRN PRN Reason: Allergy symptoms Last Admin: 07/25/18 10:27 Dose: 2 spr Furosemide (Lasix) 20 mg PO Q48H [facility] Hydromorphone HCl (Dilaudid) 1 mg PO Q4 PRN PRN Reason: Pain, severe (8-10) Azithromycin 500 mg/ Sodium (Chloride) 250 mls @ 250 mls/hr IVPB DAILY [facility]; Protocol Last Admin: 07/25/18 10:13 Dose: 250 mls/hr Sodium Chloride (Sodium Chloride 0.9%) 500 mls @ 80 mls/hr IV .Q6H15M [facility] Stop: 07/26/18 23:53 Isosorbide Mononitrate (Imdur Er) 30 mg PO DAILY [facility] Last Admin: 07/25/18 10:17 Dose: 30 mg Losartan Potassium (Cozaar) 25 mg PO DAILY [facility] Last Admin: 07/25/18 10:19 Dose: 25 mg Methylprednisolone (Solu-Medrol) 60 mg IVP Q8 [facility] Last Admin: 07/25/18 17:23 Dose: 60 mg Metoprolol Succinate (Toprol Xl) 25 mg PO DAILY [facility] Last Admin: 07/25/18 10:25 Dose: 25 mg Multivitamins/Minerals (Therapeutic-M Tab) 1 tab PO DAILY [facility] Last Admin: 07/25/18 10:23 Dose: 1 tab Nicotine (Nicoderm Cq) 1 patch TD DAILY [facility] Last Admin: 07/25/18 10:23 Dose: 1 patch Nitroglycerin (Nitrostat Sl Tab) 0.4 mg SL DAILY PRN PRN Reason: chest pain Octreotide Acetate (Sandostatin) 100 mcg SC Q12 [facility] Last Admin: 07/25/18 21:30 Dose: 100 mcg Oseltamivir Phosphate (Tamiflu Cap) 75 mg PO BID [facility]; Protocol Last Admin: 07/25/18 17:29 Dose: 75 mg Pantoprazole Sodium (Protonix Ec Tab) 40 mg PO DAILY [facility] Last Admin: 07/25/18 10:26 Dose: 40 mg Promethazine HCl/Codeine (Phenergan/Codeine Oral Syrup) 10 ml PO Q6 PRN PRN Reason: Cough Last Admin: 07/25/18 11:38 Dose: 10 ml Saliva Substitute (First Magic Mouthwash) 5 ml MM TID [facility] Last Admin: 07/25/18 17:28 Dose: 5 ml Sodium Chloride (Sodium Chloride Tab) 1 gm PO DAILY [facility] Last Admin: 07/25/18 10:23 Dose: 1 gm Trazodone HCl (Desyrel) 100 mg PO HS [facility] Last Admin: 07/25/18 21:30 Dose: 100 mg Zolpidem Tartrate (Ambien) 5 mg PO HS PRN PRN Reason: Insomnia - Labs Labs: 07/25/18 14:20 07/25/18 14:20 PT 11.3 Seconds (9.8-13.1) 07/24/18 13:14 INR 1.0 07/24/18 13:14 Assessment and Plan (1) Influenza A H1N1 infection Status: Acute (2) COPD exacerbation Status: Acute (3) NSTEMI (non-ST elevated myocardial infarction) Status: Acute (4) Hyponatremia Status: Acute (5) Chronic congestive heart failure Status: Chronic (6) Anxiety disorder Status: Acute (7) Hypertension Status: Chronic
[2018-07-26] MEDS: Promethazine/Cod 6.25mg-10mg/5ml Syr UD PO PRN (04:02)
[2018-07-26] MEDS: Albuterol-Ipratrop 3 mg / 0.5 (3 ml) UD INH SCH ×6 (04:31→23:40)
[2018-07-26] MEDS: Acetylcysteine 20% Inhal Soln (4ml) INH SCH ×2 (08:19→19:34)
[2018-07-26] MEDS: Budesonide 0.25 mg/2 ml Inhal Susp UD INH SCH ×2 (08:19→19:34)
[2018-07-26] MEDS: Azithromycin 500 MG in Sodium Chloride 0.9% 250 ML IVPB SCH (08:50)
[2018-07-26] MEDS: Aspirin 325 mg EC Tablets PO SCH (08:52)
[2018-07-26] MEDS: Mag&Al/Simet/Diphen/Lido 237 ML KIT MM SCH ×3 (08:52→17:09)
[2018-07-26] MEDS: Pantoprazole 40 mg EC Tab PO SCH (08:52)
[2018-07-26] MEDS: Multivitamin With Minerals Tab PO SCH (08:52)
[2018-07-26] MEDS: Metoprolol Succinate 25 mg XL Tab PO SCH (08:55)
[2018-07-26 10:24] LABS: HEMOGLOBIN 10.7 g/dL (12.0-16.0); LYMPH # 0.8 K/uL (1.0-4.3); LYMPH % 6.9 % (20.0-40.0); MEAN CORPUSCULAR HEMOGLOBIN 33.2 pg (27.0-31.0); MEAN CORPUSCULAR HGB CONC 32.9 g/dL (33.0-37.0); MEAN PLATELET VOLUME 7.7 fl (7.2-11.7); MONO # 0.4 K/uL (0.0-0.8); MONO % 3.8 % (0.0-10.0); NEUT # 10.5 K/uL (1.8-7.0); NEUT % 89.3 % (50.0-75.0); RBC 3.21 Mil/uL (3.80-5.20); RED CELL DISTRIBUTION WIDTH 13.9 % (11.5-14.5); WHITE BLOOD COUNT 11.7 K/uL (4.8-10.8)
[2018-07-26 10:34] LABS: BLOOD UREA NITROGEN 16 mg/dl (7-17); CALCIUM 9.4 mg/dL (8.4-10.2); GFR NON-AFRICAN AMERICAN > 60
--- NOTE | 2018-07-26 11:23 | CP.PCM.PN ---
Subjective - Date & Time of Evaluation Date of Evaluation: 07/26/18 Time of Evaluation: 11:23 - Subjective Subjective: C/O PAINFUL ORAL THRUSH STILL HAS SOB Objective - Vital Signs/Intake and Output Vital Signs (last 24 hours): Temp Pulse Resp BP Pulse Ox 99.0 F 89 18 105/66 91 L 07/26/18 08:00 07/26/18 08:55 07/26/18 08:00 07/26/18 08:55 07/26/18 08:00 - Medications Medications: Current Medications Acetaminophen (Tylenol 325mg Tab) 650 mg PO Q6 PRN PRN Reason: Headache Last Admin: 07/23/18 22:24 Dose: 650 mg Acetylcysteine (Acetylcysteine 20%) 2 ml INH RBID [facility] Last Admin: 07/26/18 08:19 Dose: 2 ml Albuterol/Ipratropium (Duoneb 3 Mg/0.5 Mg (3 Ml) Ud) 3 ml INH RQ4 [facility] Last Admin: 07/26/18 08:19 Dose: 3 ml Alprazolam (Xanax) 0.5 mg PO Q8 PRN PRN Reason: Anxiety Last Admin: 07/26/18 09:02 Dose: 0.5 mg Aspirin (Ecotrin) 325 mg PO DAILY [facility] Last Admin: 07/26/18 08:52 Dose: 325 mg Atorvastatin Calcium (Lipitor) 20 mg PO DAILY [facility] Last Admin: 07/26/18 08:53 Dose: 20 mg Budesonide (Pulmicort Respules) 0.25 mg INH RBID [facility] Last Admin: 07/26/18 08:19 Dose: 0.25 mg Clopidogrel Bisulfate (Plavix) 75 mg PO DAILY [facility] Last Admin: 07/26/18 08:54 Dose: 75 mg Cyanocobalamin (Vitamin B12 1000 Mcg/Ml Inj) 1,000 mcg IM Q14D [facility] Last Admin: 07/23/18 10:17 Dose: 1,000 mcg Enoxaparin Sodium (Lovenox) 45 mg SC Q12 [facility]; Protocol Last Admin: 07/24/18 08:18 Dose: 45 mg Ergocalciferol (Drisdol 50,000 Intl Units Cap) 1 cap PO MO [facility] Fluticasone Propionate (Flonase) 2 spr PRATIBHA HS PRN PRN Reason: Allergy symptoms Last Admin: 07/25/18 10:27 Dose: 2 spr Furosemide (Lasix) 20 mg PO Q48H [facility] Hydromorphone HCl (Dilaudid) 1 mg PO Q4 PRN PRN Reason: Pain, severe (8-10) Azithromycin 500 mg/ Sodium (Chloride) 250 mls @ 250 mls/hr IVPB DAILY [facility]; Protocol Last Admin: 07/26/18 08:50 Dose: 250 mls/hr Sodium Chloride (Sodium Chloride 0.9%) 500 mls @ 80 mls/hr IV .Q6H15M [facility] Stop: 07/26/18 23:53 Isosorbide Mononitrate (Imdur Er) 30 mg PO DAILY [facility] Last Admin: 07/26/18 08:53 Dose: 30 mg Losartan Potassium (Cozaar) 25 mg PO DAILY [facility] Last Admin: 07/26/18 08:53 Dose: 25 mg Methylprednisolone (Solu-Medrol) 60 mg IVP Q8 [facility] Last Admin: 07/26/18 08:54 Dose: 60 mg Metoprolol Succinate (Toprol Xl) 25 mg PO DAILY [facility] Last Admin: 07/26/18 08:55 Dose: 25 mg Multivitamins/Minerals (Therapeutic-M Tab) 1 tab PO DAILY [facility] Last Admin: 07/26/18 08:52 Dose: 1 tab Nicotine (Nicoderm Cq) 1 patch TD DAILY [facility] Last Admin: 07/26/18 08:53 Dose: 1 patch Nitroglycerin (Nitrostat Sl Tab) 0.4 mg SL DAILY PRN PRN Reason: chest pain Octreotide Acetate (Sandostatin) 100 mcg SC Q12 [facility] Last Admin: 07/26/18 09:13 Dose: 100 mcg Oseltamivir Phosphate (Tamiflu Cap) 75 mg PO BID [facility]; Protocol Last Admin: 07/26/18 08:52 Dose: 75 mg Pantoprazole Sodium (Protonix Ec Tab) 40 mg PO DAILY [facility] Last Admin: 07/26/18 08:52 Dose: 40 mg Promethazine HCl/Codeine (Phenergan/Codeine Oral Syrup) 10 ml PO Q6 PRN PRN Reason: Cough Last Admin: 07/26/18 04:02 Dose: 10 ml Saliva Substitute (First Magic Mouthwash) 5 ml MM TID [facility] Last Admin: 07/26/18 08:52 Dose: 5 ml Sodium Chloride (Sodium Chloride Tab) 1 gm PO DAILY [facility] Last Admin: 07/26/18 08:54 Dose: 1 gm Trazodone HCl (Desyrel) 100 mg PO HS [facility] Last Admin: 07/25/18 21:30 Dose: 100 mg Zolpidem Tartrate (Ambien) 5 mg PO HS PRN PRN Reason: Insomnia Last Admin: 07/26/18 01:17 Dose: 5 mg - Labs Labs: 07/26/18 09:50 07/26/18 09:50 PT 11.3 Seconds (9.8-13.1) 07/24/18 13:14 INR 1.0 07/24/18 13:14 - Constitutional Appears: Chronically Ill - Head Exam Head Exam: ATRAUMATIC, NORMAL INSPECTION, NORMOCEPHALIC - Eye Exam Eye Exam: EOMI, Normal appearance, PERRL Pupil Exam: NORMAL ACCOMODATION, PERRL - ENT Exam ENT Exam: Mucous Membranes Moist, Normal Exam - Neck Exam Neck Exam: Full ROM, Normal Inspection. absent: Lymphadenopathy - Respiratory Exam Respiratory Exam: Decreased Breath Sounds, Prolonged Expiratory Phase, Rales, Wheezes, NORMAL BREATHING PATTERN Additional comments: ON O2 - Cardiovascular Exam Cardiovascular Exam: REGULAR RHYTHM, +S1, +S2. absent: Murmur - GI/Abdominal Exam GI & Abdominal Exam: Soft, Normal Bowel Sounds. absent: Tenderness Additional comments: COLOSTOMY IN PLACE - Rectal Exam Rectal Exam: NORMAL INSPECTION - Extremities Exam Extremities Exam: Full ROM, Normal Capillary Refill, Normal Inspection. absent: Joint Swelling, Pedal Edema - Back Exam Back Exam: NORMAL INSPECTION - Neurological Exam Neurological Exam: Alert, Awake, CN II-XII Intact, Normal Gait, Oriented x3 - Psychiatric Exam Psychiatric exam: Anxious - Skin Skin Exam: Dry, Intact, Normal Color, Warm Assessment and Plan - Assessment and Plan (Free Text) Assessment: COPD EXAC ACUTE TN MUCUS PLUGGING OF AIRWAYS ORAL THRUSH Plan: TAPER DOSE OF STEROIDS MAY NEED IV DIFLUCAN CONTINUE BRONCHODILATOR RX
[2018-07-26] MEDS: Sodium Chloride 0.9% 500 ML IV SCH ×2 (12:08→17:10)
[2018-07-26] MEDS ORDERED: Nystatin 100,000 Units/ml Oral Susp 5 ml UD PO SCH (13:00)
[2018-07-26 16:50] LABS: OSMOLALITY,URINE 323 mosm/kg (300-1000)
[2018-07-26] MEDS: MethylPREDNISolone 40 mg Vial IVP SCH (21:36)
--- NOTE | 2018-07-26 23:24 | CP.PCM.PN ---
Subjective - Date & Time of Evaluation Date of Evaluation: 07/26/18 Time of Evaluation: 18:00 - Subjective Subjective: Reports decreased output from ostomy as she is consuming less; breathing improved; increased urination yesterday; Objective - Vital Signs/Intake and Output Vital Signs (last 24 hours): Temp Pulse Resp BP Pulse Ox 97.6 F 85 20 96/57 L 97 07/26/18 19:35 07/26/18 21:00 07/26/18 19:35 07/26/18 19:35 07/26/18 19:35 - Medications Medications: Current Medications Acetaminophen (Tylenol 325mg Tab) 650 mg PO Q6 PRN PRN Reason: Headache Last Admin: 07/23/18 22:24 Dose: 650 mg Acetylcysteine (Acetylcysteine 20%) 2 ml INH RBID [facility] Last Admin: 07/26/18 19:34 Dose: 2 ml Albuterol/Ipratropium (Duoneb 3 Mg/0.5 Mg (3 Ml) Ud) 3 ml INH RQ4 [facility] Last Admin: 07/26/18 19:34 Dose: 3 ml Alprazolam (Xanax) 0.5 mg PO Q8 PRN PRN Reason: Anxiety Last Admin: 07/26/18 17:12 Dose: 0.5 mg Aspirin (Ecotrin) 325 mg PO DAILY [facility] Last Admin: 07/26/18 08:52 Dose: 325 mg Atorvastatin Calcium (Lipitor) 20 mg PO DAILY [facility] Last Admin: 07/26/18 08:53 Dose: 20 mg Budesonide (Pulmicort Respules) 0.25 mg INH RBID [facility] Last Admin: 07/26/18 19:34 Dose: Not Given Clopidogrel Bisulfate (Plavix) 75 mg PO DAILY [facility] Last Admin: 07/26/18 08:54 Dose: 75 mg Cyanocobalamin (Vitamin B12 1000 Mcg/Ml Inj) 1,000 mcg IM Q14D [facility] Last Admin: 07/23/18 10:17 Dose: 1,000 mcg Enoxaparin Sodium (Lovenox) 45 mg SC Q12 [facility]; Protocol Last Admin: 07/24/18 08:18 Dose: 45 mg Ergocalciferol (Drisdol 50,000 Intl Units Cap) 1 cap PO MO [facility] Fluconazole (Diflucan) 100 mg PO DAILY [facility]; Protocol Last Admin: 07/26/18 17:08 Dose: 100 mg Fluticasone Propionate (Flonase) 2 spr PRATIBHA HS PRN PRN Reason: Allergy symptoms Last Admin: 07/25/18 10:27 Dose: 2 spr Furosemide (Lasix) 20 mg PO Q48H [facility] Hydromorphone HCl (Dilaudid) 1 mg PO Q4 PRN PRN Reason: Pain, severe (8-10) Azithromycin 500 mg/ Sodium (Chloride) 250 mls @ 250 mls/hr IVPB DAILY [facility]; Protocol Last Admin: 07/26/18 08:50 Dose: 250 mls/hr Sodium Chloride (Sodium Chloride 0.9%) 500 mls @ 80 mls/hr IV .Q6H15M [facility] Stop: 07/26/18 23:53 Last Admin: 07/26/18 17:10 Dose: 80 mls/hr Isosorbide Mononitrate (Imdur Er) 30 mg PO DAILY [facility] Last Admin: 07/26/18 08:53 Dose: 30 mg Losartan Potassium (Cozaar) 25 mg PO DAILY [facility] Last Admin: 07/26/18 08:53 Dose: 25 mg Methylprednisolone (Solu-Medrol) 40 mg IVP Q12 [facility] Last Admin: 07/26/18 21:36 Dose: 40 mg Metoprolol Succinate (Toprol Xl) 25 mg PO DAILY [facility] Last Admin: 07/26/18 08:55 Dose: 25 mg Multivitamins/Minerals (Therapeutic-M Tab) 1 tab PO DAILY [facility] Last Admin: 07/26/18 08:52 Dose: 1 tab Nicotine (Nicoderm Cq) 1 patch TD DAILY [facility] Last Admin: 07/26/18 08:53 Dose: 1 patch Nitroglycerin (Nitrostat Sl Tab) 0.4 mg SL DAILY PRN PRN Reason: chest pain Octreotide Acetate (Sandostatin) 100 mcg SC Q12 [facility] Last Admin: 07/26/18 21:34 Dose: 100 mcg Oseltamivir Phosphate (Tamiflu Cap) 75 mg PO BID [facility]; Protocol Last Admin: 07/26/18 17:09 Dose: 75 mg Pantoprazole Sodium (Protonix Ec Tab) 40 mg PO DAILY [facility] Last Admin: 07/26/18 08:52 Dose: 40 mg Promethazine HCl/Codeine (Phenergan/Codeine Oral Syrup) 10 ml PO Q6 PRN PRN Reason: Cough Last Admin: 07/26/18 04:02 Dose: 10 ml Saliva Substitute (First Magic Mouthwash) 5 ml MM TID [facility] Last Admin: 07/26/18 17:09 Dose: 5 ml Sodium Chloride (Sodium Chloride Tab) 1 gm PO DAILY [facility] Last Admin: 07/26/18 08:54 Dose: 1 gm Trazodone HCl (Desyrel) 100 mg PO HS [facility] Last Admin: 07/25/18 21:30 Dose: 100 mg Zolpidem Tartrate (Ambien) 5 mg PO HS PRN PRN Reason: Insomnia Last Admin: 07/26/18 01:17 Dose: 5 mg - Labs Labs: 07/26/18 09:50 07/26/18 09:50 PT 11.3 Seconds (9.8-13.1) 07/24/18 13:14 INR 1.0 07/24/18 13:14 - Constitutional Appears: Non-toxic, No Acute Distress - Eye Exam Eye Exam: Normal appearance - Respiratory Exam Respiratory Exam: Clear to Ausculation Bilateral. absent: Respiratory Distress - Cardiovascular Exam Cardiovascular Exam: RRR, +S1, +S2 - GI/Abdominal Exam GI & Abdominal Exam: Soft. absent: Distended - Extremities Exam Additional comments: no leg edema; - Neurological Exam Neurological Exam: Alert, Awake - Psychiatric Exam Psychiatric exam: Normal Affect, Normal Mood. absent: Agitated - Skin Skin Exam: Warm. absent: Cyanosis Assessment and Plan (1) Hyponatremia Assessment & Plan: Likely due to chronic volume depletion; improved s/p dose of tolvaptan yesterday; didn't get IVF as ordered, getting it today (NS 500 cc at 80 cc/hr); -continue salt tabs and increased Na diet (no signs of CHF exacerbation); -will re-assess for need to re-dose tolvaptan, will likely benefit from it usp; -would recommend PO fluid restriction bit patient will likely not be able to comply; Status: Acute (2) Chronic congestive heart failure Status: Chronic (3) Hypertension Assessment & Plan: BP low/normal; has secondary indications for BP meds (angina, CHF), continue same; Status: Chronic
[2018-07-27] MEDS: Promethazine/Cod 6.25mg-10mg/5ml Syr UD PO PRN (00:11)
[2018-07-27] MEDS: Albuterol-Ipratrop 3 mg / 0.5 (3 ml) UD INH SCH ×6 (04:06→23:41)
[2018-07-27] MEDS: Acetylcysteine 20% Inhal Soln (4ml) INH SCH ×2 (07:47→19:18)
[2018-07-27] MEDS: MethylPREDNISolone 40 mg Vial IVP SCH ×2 (08:20→21:32)
[2018-07-27] MEDS: Ergocalciferol 50,000 Intl Units Cap PO SCH (08:20)
[2018-07-27] MEDS: Mag&Al/Simet/Diphen/Lido 237 ML KIT MM SCH (08:20)
[2018-07-27] MEDS: Metoprolol Succinate 25 mg XL Tab PO SCH (08:21)
[2018-07-27] MEDS: Multivitamin With Minerals Tab PO SCH (08:21)
[2018-07-27] MEDS: Pantoprazole 40 mg EC Tab PO SCH (08:22)
[2018-07-27] MEDS: Aspirin 325 mg EC Tablets PO SCH (08:22)
[2018-07-27] MEDS: Azithromycin 500 MG in Sodium Chloride 0.9% 250 ML IVPB SCH (08:35)
[2018-07-27 08:46] LABS: HEMOGLOBIN 8.8 g/dL (12.0-16.0); LYMPH # 0.5 K/uL (1.0-4.3); LYMPH % 4.2 % (20.0-40.0); MEAN CELL VOLUME 99.7 fl (81.0-99.0); MEAN CORPUSCULAR HGB CONC 34.1 g/dL (33.0-37.0); MEAN PLATELET VOLUME 7.7 fl (7.2-11.7); MONO # 0.4 K/uL (0.0-0.8); MONO % 3.5 % (0.0-10.0); NEUT % 92.3 % (50.0-75.0); PLATELET COUNT 173 K/uL (130-400); RBC 2.59 Mil/uL (3.80-5.20); RED CELL DISTRIBUTION WIDTH 14.1 % (11.5-14.5); WHITE BLOOD COUNT 10.9 K/uL (4.8-10.8)
[2018-07-27 09:12] LABS: BLOOD UREA NITROGEN 18 mg/dl (7-17); CALCIUM 8.9 mg/dL (8.4-10.2); GFR NON-AFRICAN AMERICAN > 60
--- NOTE | 2018-07-27 09:36 | CARD ---
APPROVED REPORT Date of service: 07/25/2018 EKG Measurement Heart [id number] <Conclusion> Normal sinus rhythm Septal infarct, age undetermined Marked T wave abnormality, consider anterolateral injury/iscehmia Abnormal ECG
--- NOTE | 2018-07-27 10:17 | CP.PCM.PN ---
Subjective - Date & Time of Evaluation Date of Evaluation: 07/27/18 Time of Evaluation: 09:00 - Subjective Subjective: NO CHEST PAIN BREATHING A LITTLE BETTER BUT STILL WITH SOB AND A COUGH Objective - Vital Signs/Intake and Output Vital Signs (last 24 hours): Temp Pulse Resp BP Pulse Ox 97.7 F 84 20 106/63 96 07/27/18 08:24 07/27/18 08:24 07/27/18 08:24 07/27/18 08:24 07/27/18 08:24 - Medications Medications: Current Medications Acetaminophen (Tylenol 325mg Tab) 650 mg PO Q6 PRN PRN Reason: Headache Last Admin: 07/23/18 22:24 Dose: 650 mg Acetylcysteine (Acetylcysteine 20%) 2 ml INH RBID [facility] Last Admin: 07/27/18 07:47 Dose: 2 ml Albuterol/Ipratropium (Duoneb 3 Mg/0.5 Mg (3 Ml) Ud) 3 ml INH RQ4 [facility] Last Admin: 07/27/18 07:48 Dose: 3 ml Alprazolam (Xanax) 0.5 mg PO Q8 PRN PRN Reason: Anxiety Last Admin: 07/27/18 08:27 Dose: 0.5 mg Aspirin (Ecotrin) 325 mg PO DAILY [facility] Last Admin: 07/27/18 08:22 Dose: 325 mg Atorvastatin Calcium (Lipitor) 20 mg PO DAILY [facility] Last Admin: 07/27/18 08:20 Dose: 20 mg Budesonide (Pulmicort Respules) 0.25 mg INH RBID [facility] Last Admin: 07/26/18 19:34 Dose: Not Given Clopidogrel Bisulfate (Plavix) 75 mg PO DAILY [facility] Last Admin: 07/27/18 08:22 Dose: 75 mg Cyanocobalamin (Vitamin B12 1000 Mcg/Ml Inj) 1,000 mcg IM Q14D [facility] Last Admin: 07/23/18 10:17 Dose: 1,000 mcg Enoxaparin Sodium (Lovenox) 45 mg SC Q12 [facility]; Protocol Last Admin: 07/24/18 08:18 Dose: 45 mg Ergocalciferol (Drisdol 50,000 Intl Units Cap) 1 cap PO MO [facility] Last Admin: 07/27/18 08:20 Dose: 1 cap Fluconazole (Diflucan) 100 mg PO DAILY [facility]; Protocol Last Admin: 07/27/18 08:20 Dose: 100 mg Fluticasone Propionate (Flonase) 2 spr PRATIBHA HS PRN PRN Reason: Allergy symptoms Last Admin: 07/27/18 01:35 Dose: 2 spr Furosemide (Lasix) 20 mg PO Q48H [facility] Azithromycin 500 mg/ Sodium (Chloride) 250 mls @ 250 mls/hr IVPB DAILY [facility]; Protocol Last Admin: 07/27/18 08:35 Dose: 250 mls/hr Isosorbide Mononitrate (Imdur Er) 30 mg PO DAILY [facility] Last Admin: 07/27/18 08:22 Dose: 30 mg Losartan Potassium (Cozaar) 25 mg PO DAILY [facility] Last Admin: 07/27/18 08:22 Dose: 25 mg Methylprednisolone (Solu-Medrol) 40 mg IVP Q12 [facility] Last Admin: 07/27/18 08:20 Dose: 40 mg Metoprolol Succinate (Toprol Xl) 25 mg PO DAILY [facility] Last Admin: 07/27/18 08:21 Dose: 25 mg Multivitamins/Minerals (Therapeutic-M Tab) 1 tab PO DAILY [facility] Last Admin: 07/27/18 08:21 Dose: 1 tab Nicotine (Nicoderm Cq) 1 patch TD DAILY [facility] Last Admin: 07/27/18 08:21 Dose: 1 patch Nitroglycerin (Nitrostat Sl Tab) 0.4 mg SL DAILY PRN PRN Reason: chest pain Octreotide Acetate (Sandostatin) 100 mcg SC Q12 [facility] Last Admin: 07/27/18 10:07 Dose: 100 mcg Oseltamivir Phosphate (Tamiflu Cap) 75 mg PO BID [facility]; Protocol Last Admin: 07/27/18 08:21 Dose: 75 mg Pantoprazole Sodium (Protonix Ec Tab) 40 mg PO DAILY [facility] Last Admin: 07/27/18 08:22 Dose: 40 mg Promethazine HCl/Codeine (Phenergan/Codeine Oral Syrup) 10 ml PO Q6 PRN PRN Reason: Cough Last Admin: 07/27/18 00:11 Dose: 10 ml Saliva Substitute (First Magic Mouthwash) 5 ml MM TID [facility] Last Admin: 07/27/18 08:20 Dose: 5 ml Sodium Chloride (Sodium Chloride Tab) 1 gm PO DAILY [facility] Last Admin: 07/27/18 08:21 Dose: 1 gm Trazodone HCl (Desyrel) 100 mg PO HS [facility] Last Admin: 07/26/18 23:00 Dose: 100 mg - Labs Labs: 07/27/18 08:23 07/27/18 08:23 PT 11.3 Seconds (9.8-13.1) 07/24/18 13:14 INR 1.0 07/24/18 13:14 - Respiratory Exam Respiratory Exam: Rales, Wheezes - Cardiovascular Exam Cardiovascular Exam: REGULAR RHYTHM, +S1, +S2 - Extremities Exam Additional comments: NO LE EDEMA - Additional Findings Additional findings: [employer] NSR Assessment and Plan - Assessment and Plan (Free Text) Assessment: CAD WITH OLD AWMI AND ACUTE EXTENSION IN THE SAME AREA-CHEST PAIN FREE NOW COPD WITH ACUTE EXACERBATION HYOERTENSION Plan: CONTINUE O2, ASPIRIN, CLOPIDOGREL, LOVENOX, METOPROLOL, NITRATES, METOPROLOL, LOSARTAN, ANTIBIOTICS AND BRONCHODILATORS
[2018-07-27 10:43] LABS: BANDS 1 % (0-2); LYMPHOCYTE 3 % (20-50); METAMYELOCYTE 1 % (0-0); MONOCYTE 3 % (0-10); MYELOCYTE 1 % (0-0); NEUTROPHIL 91 % (42-75); PLATELET ESTIMATE NORMAL (NORMAL); TOTAL CELLS COUNTED 100
[2018-07-27 10:50] LABS: HYPOCHROMIC SLIGHT; TOXIC GRANULATION PRESENT
[2018-07-27 10:52] LABS: BURR CELLS SLIGHT
[2018-07-27] MEDS: Budesonide 0.25 mg/2 ml Inhal Susp UD INH SCH ×2 (11:05→21:48)
--- NOTE | 2018-07-27 21:15 | CP.PCM.PN ---
Subjective - Date & Time of Evaluation Date of Evaluation: 07/27/18 Time of Evaluation: 12:45 - Subjective Subjective: Breathing improved, still on O2; still with difficulty swallowing due to thrush but improved; dry mouth improving; Objective - Vital Signs/Intake and Output Vital Signs (last 24 hours): Temp Pulse Resp BP Pulse Ox 97.8 F 87 18 110/61 98 07/27/18 20:04 07/27/18 20:04 07/27/18 20:04 07/27/18 20:04 07/27/18 20:04 - Medications Medications: Current Medications Acetaminophen (Tylenol 325mg Tab) 650 mg PO Q6 PRN PRN Reason: Headache Last Admin: 07/23/18 22:24 Dose: 650 mg Acetylcysteine (Acetylcysteine 20%) 2 ml INH RBID [facility] Last Admin: 07/27/18 19:18 Dose: 2 ml Albuterol/Ipratropium (Duoneb 3 Mg/0.5 Mg (3 Ml) Ud) 3 ml INH RQ4 [facility] Last Admin: 07/27/18 19:19 Dose: 3 ml Alprazolam (Xanax) 0.5 mg PO Q8 PRN PRN Reason: Anxiety Last Admin: 07/27/18 21:05 Dose: 0.5 mg Aspirin (Ecotrin) 325 mg PO DAILY [facility] Last Admin: 07/27/18 08:22 Dose: 325 mg Atorvastatin Calcium (Lipitor) 20 mg PO DAILY [facility] Last Admin: 07/27/18 08:20 Dose: 20 mg Budesonide (Pulmicort Respules) 0.25 mg INH RBID [facility] Last Admin: 07/27/18 11:05 Dose: 0.25 mg Clopidogrel Bisulfate (Plavix) 75 mg PO DAILY [facility] Last Admin: 07/27/18 08:22 Dose: 75 mg Cyanocobalamin (Vitamin B12 1000 Mcg/Ml Inj) 1,000 mcg IM Q14D [facility] Last Admin: 07/23/18 10:17 Dose: 1,000 mcg Enoxaparin Sodium (Lovenox) 45 mg SC Q12 [facility]; Protocol Last Admin: 07/24/18 08:18 Dose: 45 mg Ergocalciferol (Drisdol 50,000 Intl Units Cap) 1 cap PO MO [facility] Last Admin: 07/27/18 08:20 Dose: 1 cap Fluconazole (Diflucan) 100 mg PO DAILY [facility]; Protocol Last Admin: 07/27/18 08:20 Dose: 100 mg Fluticasone Propionate (Flonase) 2 spr PRATIBHA HS PRN PRN Reason: Allergy symptoms Last Admin: 07/27/18 01:35 Dose: 2 spr Furosemide (Lasix) 20 mg PO Q48H [facility] Home Med (Patient's Own Medication) 5 unit MT TID [facility] Last Admin: 07/27/18 16:53 Dose: 5 unit Hydromorphone HCl (Dilaudid) 0.5 mg IVP Q4 PRN PRN Reason: Pain, severe (8-10) Azithromycin 500 mg/ Sodium (Chloride) 250 mls @ 250 mls/hr IVPB DAILY [facility]; Protocol Last Admin: 07/27/18 08:35 Dose: 250 mls/hr Isosorbide Mononitrate (Imdur Er) 30 mg PO DAILY [facility] Last Admin: 07/27/18 08:22 Dose: 30 mg Losartan Potassium (Cozaar) 25 mg PO DAILY [facility] Last Admin: 07/27/18 08:22 Dose: 25 mg Methylprednisolone (Solu-Medrol) 40 mg IVP Q12 [facility] Last Admin: 07/27/18 08:20 Dose: 40 mg Metoprolol Succinate (Toprol Xl) 25 mg PO DAILY [facility] Last Admin: 07/27/18 08:21 Dose: 25 mg Multivitamins/Minerals (Therapeutic-M Tab) 1 tab PO DAILY [facility] Last Admin: 07/27/18 08:21 Dose: 1 tab Nicotine (Nicoderm Cq) 1 patch TD DAILY [facility] Last Admin: 07/27/18 08:21 Dose: 1 patch Nitroglycerin (Nitrostat Sl Tab) 0.4 mg SL DAILY PRN PRN Reason: chest pain Octreotide Acetate (Sandostatin) 100 mcg SC Q12 [facility] Last Admin: 07/27/18 10:07 Dose: 100 mcg Oseltamivir Phosphate (Tamiflu Cap) 75 mg PO BID [facility]; Protocol Last Admin: 07/27/18 16:53 Dose: 75 mg Pantoprazole Sodium (Protonix Ec Tab) 40 mg PO DAILY [facility] Last Admin: 07/27/18 08:22 Dose: 40 mg Promethazine HCl/Codeine (Phenergan/Codeine Oral Syrup) 10 ml PO Q6 PRN PRN Reason: Cough Last Admin: 07/27/18 00:11 Dose: 10 ml Sodium Chloride (Sodium Chloride Tab) 1 gm PO DAILY [facility] Last Admin: 07/27/18 08:21 Dose: 1 gm Trazodone HCl (Desyrel) 100 mg PO HS [facility] Last Admin: 07/26/18 23:00 Dose: 100 mg Zolpidem Tartrate (Ambien) 5 mg PO HS PRN PRN Reason: Sleep - Labs Labs: 07/27/18 08:23 07/27/18 08:23 PT 11.3 Seconds (9.8-13.1) 07/24/18 13:14 INR 1.0 07/24/18 13:14 - Constitutional Appears: Non-toxic, No Acute Distress - Eye Exam Eye Exam: Normal appearance - Respiratory Exam Respiratory Exam: absent: Respiratory Distress Additional comments: mild rales; - Cardiovascular Exam Cardiovascular Exam: RRR, +S1, +S2. absent: Gallop, Rubs - GI/Abdominal Exam GI & Abdominal Exam: Soft. absent: Distended, Tenderness - Extremities Exam Additional comments: no leg edema; - Neurological Exam Neurological Exam: Alert, Awake - Psychiatric Exam Psychiatric exam: Normal Mood. absent: Agitated - Skin Skin Exam: Warm. absent: Cyanosis Assessment and Plan (1) Hyponatremia Assessment & Plan: Improving s/p dose of tolvaptan 2 days ago and IVF yesterday; -continue salt tabs, increased dietary Na; -holding diuretics; -will re-dose tolvaptan as needed; Status: Acute (2) Chronic congestive heart failure Status: Chronic (3) Hypertension Assessment & Plan: On 3 anti-htn agents in the setting of CAD and CHF; continue per cardio but need to avoid volume depletion which patient is prone to due to ostomy losses; Status: Chronic
--- NOTE | 2018-07-28 01:13 | CP.PCM.PN ---
Subjective - Date & Time of Evaluation Date of Evaluation: 07/27/18 Time of Evaluation: 19:35 Objective - Vital Signs/Intake and Output Vital Signs (last 24 hours): Temp Pulse Resp BP Pulse Ox 97.9 F 84 20 110/53 L 98 07/27/18 23:55 07/27/18 23:55 07/27/18 23:55 07/27/18 23:55 07/27/18 23:55 - Medications Medications: Current Medications Acetaminophen (Tylenol 325mg Tab) 650 mg PO Q6 PRN PRN Reason: Headache Last Admin: 07/23/18 22:24 Dose: 650 mg Acetylcysteine (Acetylcysteine 20%) 2 ml INH RBID [facility] Last Admin: 07/27/18 19:18 Dose: 2 ml Albuterol/Ipratropium (Duoneb 3 Mg/0.5 Mg (3 Ml) Ud) 3 ml INH RQ4 [facility] Last Admin: 07/27/18 23:41 Dose: 3 ml Alprazolam (Xanax) 0.5 mg PO Q8 PRN PRN Reason: Anxiety Last Admin: 07/27/18 21:05 Dose: 0.5 mg Aspirin (Ecotrin) 325 mg PO DAILY [facility] Last Admin: 07/27/18 08:22 Dose: 325 mg Atorvastatin Calcium (Lipitor) 20 mg PO DAILY [facility] Last Admin: 07/27/18 08:20 Dose: 20 mg Budesonide (Pulmicort Respules) 0.25 mg INH RBID [facility] Last Admin: 07/27/18 21:48 Dose: 0.25 mg Clopidogrel Bisulfate (Plavix) 75 mg PO DAILY [facility] Last Admin: 07/27/18 08:22 Dose: 75 mg Cyanocobalamin (Vitamin B12 1000 Mcg/Ml Inj) 1,000 mcg IM Q14D [facility] Last Admin: 07/23/18 10:17 Dose: 1,000 mcg Enoxaparin Sodium (Lovenox) 45 mg SC Q12 [facility]; Protocol Last Admin: 07/24/18 08:18 Dose: 45 mg Ergocalciferol (Drisdol 50,000 Intl Units Cap) 1 cap PO MO [facility] Last Admin: 07/27/18 08:20 Dose: 1 cap Fluconazole (Diflucan) 100 mg PO DAILY [facility]; Protocol Last Admin: 07/27/18 08:20 Dose: 100 mg Fluticasone Propionate (Flonase) 2 spr PRATIBHA HS PRN PRN Reason: Allergy symptoms Last Admin: 07/27/18 01:35 Dose: 2 spr Furosemide (Lasix) 20 mg PO Q48H [facility] Home Med (Patient's Own Medication) 5 unit MT TID [facility] Last Admin: 07/27/18 16:53 Dose: 5 unit Hydromorphone HCl (Dilaudid) 0.5 mg IVP Q4 PRN PRN Reason: Pain, severe (8-10) Azithromycin 500 mg/ Sodium (Chloride) 250 mls @ 250 mls/hr IVPB DAILY [facility]; Protocol Last Admin: 07/27/18 08:35 Dose: 250 mls/hr Isosorbide Mononitrate (Imdur Er) 30 mg PO DAILY [facility] Last Admin: 07/27/18 08:22 Dose: 30 mg Losartan Potassium (Cozaar) 25 mg PO DAILY [facility] Last Admin: 07/27/18 08:22 Dose: 25 mg Methylprednisolone (Solu-Medrol) 40 mg IVP Q12 [facility] Last Admin: 07/27/18 21:32 Dose: 40 mg Metoprolol Succinate (Toprol Xl) 25 mg PO DAILY [facility] Last Admin: 07/27/18 08:21 Dose: 25 mg Multivitamins/Minerals (Therapeutic-M Tab) 1 tab PO DAILY [facility] Last Admin: 07/27/18 08:21 Dose: 1 tab Nicotine (Nicoderm Cq) 1 patch TD DAILY [facility] Last Admin: 07/27/18 08:21 Dose: 1 patch Nitroglycerin (Nitrostat Sl Tab) 0.4 mg SL DAILY PRN PRN Reason: chest pain Octreotide Acetate (Sandostatin) 100 mcg SC Q12 [facility] Last Admin: 07/27/18 21:32 Dose: 100 mcg Oseltamivir Phosphate (Tamiflu Cap) 75 mg PO BID [facility]; Protocol Last Admin: 07/27/18 16:53 Dose: 75 mg Pantoprazole Sodium (Protonix Ec Tab) 40 mg PO DAILY [facility] Last Admin: 07/27/18 08:22 Dose: 40 mg Promethazine HCl/Codeine (Phenergan/Codeine Oral Syrup) 10 ml PO Q6 PRN PRN Reason: Cough Last Admin: 07/27/18 00:11 Dose: 10 ml Sodium Chloride (Sodium Chloride Tab) 1 gm PO DAILY [facility] Last Admin: 07/27/18 08:21 Dose: 1 gm Trazodone HCl (Desyrel) 100 mg PO HS [facility] Last Admin: 07/27/18 22:19 Dose: 100 mg Zolpidem Tartrate (Ambien) 5 mg PO HS PRN PRN Reason: Sleep Last Admin: 07/28/18 00:16 Dose: 5 mg - Labs Labs: 07/27/18 08:23 07/27/18 08:23 PT 11.3 Seconds (9.8-13.1) 07/24/18 13:14 INR 1.0 07/24/18 13:14 Assessment and Plan (1) Influenza A H1N1 infection Status: Acute (2) COPD exacerbation Status: Acute (3) NSTEMI (non-ST elevated myocardial infarction) Status: Acute (4) Hyponatremia Status: Acute (5) Chronic congestive heart failure Status: Chronic (6) Anxiety disorder Status: Acute (7) Hypertension Status: Chronic
[2018-07-28] MEDS: Albuterol-Ipratrop 3 mg / 0.5 (3 ml) UD INH SCH ×5 (04:55→20:03)
[2018-07-28] MEDS: Budesonide 0.25 mg/2 ml Inhal Susp UD INH SCH ×2 (08:15→20:05)
[2018-07-28] MEDS: Acetylcysteine 20% Inhal Soln (4ml) INH SCH ×2 (08:15→20:03)
--- NOTE | 2018-07-28 09:12 | CP.PCM.PN ---
Subjective - Date & Time of Evaluation Date of Evaluation: 07/28/18 Time of Evaluation: 09:11 - Subjective Subjective: SLEEPING PEACEFULLY TODAY FEELS BETTER SOB IMPROVED NO NEW CLINICAL FINDINGS IMPRESSION-COPD -IMPROVING FLU PLAN-D/C TAMIFLU CONTINUE RX ORDERED Objective - Vital Signs/Intake and Output Vital Signs (last 24 hours): Temp Pulse Resp BP Pulse Ox 97.9 F 76 18 112/66 100 07/28/18 08:01 07/28/18 08:01 07/28/18 08:01 07/28/18 08:01 07/28/18 08:01 - Medications Medications: Current Medications Acetaminophen (Tylenol 325mg Tab) 650 mg PO Q6 PRN PRN Reason: Headache Last Admin: 07/23/18 22:24 Dose: 650 mg Acetylcysteine (Acetylcysteine 20%) 2 ml INH RBID [facility] Last Admin: 07/28/18 08:15 Dose: 2 ml Albuterol/Ipratropium (Duoneb 3 Mg/0.5 Mg (3 Ml) Ud) 3 ml INH RQ4 [facility] Last Admin: 07/28/18 08:15 Dose: 3 ml Alprazolam (Xanax) 0.5 mg PO Q8 PRN PRN Reason: Anxiety Last Admin: 07/28/18 06:56 Dose: 0.5 mg Aspirin (Ecotrin) 325 mg PO DAILY [facility] Last Admin: 07/27/18 08:22 Dose: 325 mg Atorvastatin Calcium (Lipitor) 20 mg PO DAILY [facility] Last Admin: 07/27/18 08:20 Dose: 20 mg Budesonide (Pulmicort Respules) 0.25 mg INH RBID [facility] Last Admin: 07/28/18 08:15 Dose: 0.25 mg Clopidogrel Bisulfate (Plavix) 75 mg PO DAILY [facility] Last Admin: 07/27/18 08:22 Dose: 75 mg Cyanocobalamin (Vitamin B12 1000 Mcg/Ml Inj) 1,000 mcg IM Q14D [facility] Last Admin: 07/23/18 10:17 Dose: 1,000 mcg Enoxaparin Sodium (Lovenox) 45 mg SC Q12 [facility]; Protocol Last Admin: 07/24/18 08:18 Dose: 45 mg Ergocalciferol (Drisdol 50,000 Intl Units Cap) 1 cap PO MO [facility] Last Admin: 07/27/18 08:20 Dose: 1 cap Fluconazole (Diflucan) 100 mg PO DAILY [facility]; Protocol Last Admin: 07/27/18 08:20 Dose: 100 mg Fluticasone Propionate (Flonase) 2 spr PRATIBHA HS PRN PRN Reason: Allergy symptoms Last Admin: 07/27/18 01:35 Dose: 2 spr Furosemide (Lasix) 20 mg PO Q48H [facility] Home Med (Patient's Own Medication) 5 unit MT TID [facility] Last Admin: 07/27/18 16:53 Dose: 5 unit Hydromorphone HCl (Dilaudid) 0.5 mg IVP Q4 PRN PRN Reason: Pain, severe (8-10) Azithromycin 500 mg/ Sodium (Chloride) 250 mls @ 250 mls/hr IVPB DAILY [facility]; Protocol Last Admin: 07/27/18 08:35 Dose: 250 mls/hr Isosorbide Mononitrate (Imdur Er) 30 mg PO DAILY [facility] Last Admin: 07/27/18 08:22 Dose: 30 mg Losartan Potassium (Cozaar) 25 mg PO DAILY [facility] Last Admin: 07/27/18 08:22 Dose: 25 mg Methylprednisolone (Solu-Medrol) 40 mg IVP Q12 [facility] Last Admin: 07/27/18 21:32 Dose: 40 mg Metoprolol Succinate (Toprol Xl) 25 mg PO DAILY [facility] Last Admin: 07/27/18 08:21 Dose: 25 mg Multivitamins/Minerals (Therapeutic-M Tab) 1 tab PO DAILY [facility] Last Admin: 07/27/18 08:21 Dose: 1 tab Nicotine (Nicoderm Cq) 1 patch TD DAILY [facility] Last Admin: 07/27/18 08:21 Dose: 1 patch Nitroglycerin (Nitrostat Sl Tab) 0.4 mg SL DAILY PRN PRN Reason: chest pain Octreotide Acetate (Sandostatin) 100 mcg SC Q12 [facility] Last Admin: 07/27/18 21:32 Dose: 100 mcg Pantoprazole Sodium (Protonix Ec Tab) 40 mg PO DAILY [facility] Last Admin: 07/27/18 08:22 Dose: 40 mg Promethazine HCl/Codeine (Phenergan/Codeine Oral Syrup) 10 ml PO Q6 PRN PRN Reason: Cough Last Admin: 07/27/18 00:11 Dose: 10 ml Sodium Chloride (Sodium Chloride Tab) 1 gm PO DAILY [facility] Last Admin: 07/27/18 08:21 Dose: 1 gm Trazodone HCl (Desyrel) 100 mg PO HS [facility] Last Admin: 07/27/18 22:19 Dose: 100 mg Zolpidem Tartrate (Ambien) 5 mg PO HS PRN PRN Reason: Sleep Last Admin: 07/28/18 00:16 Dose: 5 mg - Labs Labs: 07/27/18 08:23 07/27/18 08:23 PT 11.3 Seconds (9.8-13.1) 07/24/18 13:14 INR 1.0 07/24/18 13:14
[2018-07-28] MEDS: Aspirin 325 mg EC Tablets PO SCH (09:36)
[2018-07-28] MEDS: Multivitamin With Minerals Tab PO SCH (09:37)
[2018-07-28] MEDS: Pantoprazole 40 mg EC Tab PO SCH (09:39)
[2018-07-28] MEDS: Azithromycin 500 MG in Sodium Chloride 0.9% 250 ML IVPB SCH (09:40)
[2018-07-28] MEDS: Metoprolol Succinate 25 mg XL Tab PO SCH (09:41)
--- NOTE | 2018-07-28 11:08 | CP.PCM.PN ---
Subjective - Date & Time of Evaluation Date of Evaluation: 07/28/18 Time of Evaluation: 09:00 - Subjective Subjective: FEELS BETTER BREATHING IS BETTER AND COUGH IS LESS NO CHEST PAIN Objective - Vital Signs/Intake and Output Vital Signs (last 24 hours): Temp Pulse Resp BP Pulse Ox 97.9 F 76 18 112/66 100 07/28/18 08:01 07/28/18 09:41 07/28/18 08:01 07/28/18 09:41 07/28/18 08:01 - Medications Medications: Current Medications Acetaminophen (Tylenol 325mg Tab) 650 mg PO Q6 PRN PRN Reason: Headache Last Admin: 07/23/18 22:24 Dose: 650 mg Acetylcysteine (Acetylcysteine 20%) 2 ml INH RBID [facility] Last Admin: 07/28/18 08:15 Dose: 2 ml Albuterol/Ipratropium (Duoneb 3 Mg/0.5 Mg (3 Ml) Ud) 3 ml INH RQ4 [facility] Last Admin: 07/28/18 08:15 Dose: 3 ml Alprazolam (Xanax) 0.5 mg PO Q8 PRN PRN Reason: Anxiety Last Admin: 07/28/18 06:56 Dose: 0.5 mg Aspirin (Ecotrin) 325 mg PO DAILY [facility] Last Admin: 07/28/18 09:36 Dose: 325 mg Atorvastatin Calcium (Lipitor) 20 mg PO DAILY [facility] Last Admin: 07/28/18 09:38 Dose: 20 mg Budesonide (Pulmicort Respules) 0.25 mg INH RBID [facility] Last Admin: 07/28/18 08:15 Dose: 0.25 mg Clopidogrel Bisulfate (Plavix) 75 mg PO DAILY [facility] Last Admin: 07/28/18 09:39 Dose: 75 mg Cyanocobalamin (Vitamin B12 1000 Mcg/Ml Inj) 1,000 mcg IM Q14D [facility] Last Admin: 07/23/18 10:17 Dose: 1,000 mcg Enoxaparin Sodium (Lovenox) 45 mg SC Q12 [facility]; Protocol Last Admin: 07/24/18 08:18 Dose: 45 mg Ergocalciferol (Drisdol 50,000 Intl Units Cap) 1 cap PO MO [facility] Last Admin: 07/27/18 08:20 Dose: 1 cap Fluconazole (Diflucan) 100 mg PO DAILY [facility]; Protocol Last Admin: 07/28/18 09:37 Dose: 100 mg Fluticasone Propionate (Flonase) 2 spr PRATIBHA HS PRN PRN Reason: Allergy symptoms Last Admin: 07/27/18 01:35 Dose: 2 spr Furosemide (Lasix) 20 mg PO Q48H [facility] Home Med (Patient's Own Medication) 5 unit MT TID [facility] Last Admin: 07/28/18 09:43 Dose: 5 unit Hydromorphone HCl (Dilaudid) 0.5 mg IVP Q4 PRN PRN Reason: Pain, severe (8-10) Azithromycin 500 mg/ Sodium (Chloride) 250 mls @ 250 mls/hr IVPB DAILY [facility]; Protocol Last Admin: 07/28/18 09:40 Dose: 250 mls/hr Isosorbide Mononitrate (Imdur Er) 30 mg PO DAILY [facility] Last Admin: 07/28/18 09:36 Dose: 30 mg Losartan Potassium (Cozaar) 25 mg PO DAILY [facility] Last Admin: 07/28/18 09:37 Dose: 25 mg Methylprednisolone (Solu-Medrol) 40 mg IVP Q12 [facility] Last Admin: 07/27/18 21:32 Dose: 40 mg Metoprolol Succinate (Toprol Xl) 25 mg PO DAILY [facility] Last Admin: 07/28/18 09:41 Dose: 25 mg Multivitamins/Minerals (Therapeutic-M Tab) 1 tab PO DAILY [facility] Last Admin: 07/28/18 09:37 Dose: 1 tab Nicotine (Nicoderm Cq) 1 patch TD DAILY [facility] Last Admin: 07/28/18 09:38 Dose: 1 patch Nitroglycerin (Nitrostat Sl Tab) 0.4 mg SL DAILY PRN PRN Reason: chest pain Octreotide Acetate (Sandostatin) 100 mcg SC Q12 [facility] Last Admin: 07/28/18 10:04 Dose: 100 mcg Pantoprazole Sodium (Protonix Ec Tab) 40 mg PO DAILY [facility] Last Admin: 07/28/18 09:39 Dose: 40 mg Sodium Chloride (Sodium Chloride Tab) 1 gm PO DAILY [facility] Last Admin: 07/28/18 09:42 Dose: 1 gm Trazodone HCl (Desyrel) 100 mg PO HS [facility] Last Admin: 07/27/18 22:19 Dose: 100 mg Zolpidem Tartrate (Ambien) 5 mg PO HS PRN PRN Reason: Sleep Last Admin: 07/28/18 00:16 Dose: 5 mg - Labs Labs: 07/27/18 08:23 07/27/18 08:23 PT 11.3 Seconds (9.8-13.1) 07/24/18 13:14 INR 1.0 07/24/18 13:14 - Respiratory Exam Additional comments: CLEARER BILAT - Cardiovascular Exam Cardiovascular Exam: REGULAR RHYTHM, +S1, +S2 - Extremities Exam Additional comments: NO LE EDEMA - Additional Findings Additional findings: B[employer]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
[2018-07-28 15:28] LABS: HEMOGLOBIN 8.5 g/dL (12.0-16.0); MEAN CORPUSCULAR HEMOGLOBIN 33.7 pg (27.0-31.0); MEAN CORPUSCULAR HGB CONC 33.7 g/dL (33.0-37.0); RBC 2.52 Mil/uL (3.80-5.20); WHITE BLOOD COUNT 17.6 K/uL (4.8-10.8)
--- NOTE | 2018-07-28 16:29 | CP.PCM.CON ---
History of Present Illness - History of Present Illness History of Present Illness: 68 year old female with a history of tobacco abuse, COPD, HTN, subclavian steal syndrome, CAD s/p PCI complicated by hematoma, presenting with shortness of breath, NSTEMI, s/p lovenox injection complicated by abdominal hematoma. The p atient notes to receiving a lovenox injection and developed a large bruise that has tracked from the left to right side. She notes to abdominal soreness but no other complaints. She dtill feels short of breath with exertion but notes this is improving. She denies abnormal bleeding in the past but does bruise easily. Past medical history: tobacco abuse, COPD, HTN, subclavian steal syndrome, CAD s/p PCI Past surgical history: Hysterectomy, cholecystectomy, ileostomy Family history: Brother had throat cancer - smoker Social history: +tobacco Allergies: Sulfa Review of systems: All remaining review of systems including HEENT, cardiovascular, respiratory, gastrointestinal, genitourinary, musculoskeletal, dermatologic, neurologic, and psychiatric are negative unless mentioned in the HPI. Past Patient History - Past Medical History & Family History Past Medical History?: Yes Past Family History: Reviewed and not pertinent - Past Social History Smoking Status: Light Smoker < 10 Cigarettes Daily Alcohol: Social Drugs: Denies - CARDIAC Hx Hypercholesterolemia: Yes Hx Hypertension: Yes - PULMONARY Hx Chronic Obstructive Pulmonary Disease (COPD): Yes Hx Emphysema: Yes - NEUROLOGICAL Hx Neurological Disorder: Yes Other/Comment: FIBROMYALGIA - HEENT Hx HEENT Problems: No - RENAL Hx Chronic Kidney Disease: No - ENDOCRINE/METABOLIC Hx Endocrine Disorders: No - HEMATOLOGICAL/ONCOLOGICAL Hx Anemia: Yes Hx Human Immunodeficiency Virus (HIV): No - INTEGUMENTARY Hx Dermatological Problems: No - MUSCULOSKELETAL/RHEUMATOLOGICAL Hx Musculoskeletal Disorders: No Hx Falls: Yes - GASTROINTESTINAL Hx Gastrointestinal Disorders: Yes Hx Ileostomy: Yes - GENITOURINARY/GYNECOLOGICAL Hx Genitourinary Disorders: No - PSYCHIATRIC Hx Anxiety: Yes Hx Depression: Yes - SURGICAL HISTORY Hx Cholecystectomy: Yes - ANESTHESIA Hx Anesthesia: Yes Hx Anesthesia Reactions: No Hx Malignant Hyperthermia: No Meds Allergies/Adverse Reactions: Allergies Allergy/AdvReac Type Severity Reaction Status Date / Time Sulfa (Sulfonamide Allergy crystallized Verified 09/15/17 12:38 Antibiotics) kidneys - Medications Medications: Current Medications Acetaminophen (Tylenol 325mg Tab) 650 mg PO Q6 PRN PRN Reason: Headache Last Admin: 07/23/18 22:24 Dose: 650 mg Acetylcysteine (Acetylcysteine 20%) 2 ml INH RBID [facility] Last Admin: 07/28/18 08:15 Dose: 2 ml Albuterol/Ipratropium (Duoneb 3 Mg/0.5 Mg (3 Ml) Ud) 3 ml INH RQ4 [facility] Last Admin: 07/28/18 15:40 Dose: 3 ml Alprazolam (Xanax) 0.5 mg PO Q8 PRN PRN Reason: Anxiety Last Admin: 07/28/18 15:46 Dose: 0.5 mg Aspirin (Ecotrin) 325 mg PO DAILY [facility] Last Admin: 07/28/18 09:36 Dose: 325 mg Atorvastatin Calcium (Lipitor) 20 mg PO DAILY [facility] Last Admin: 07/28/18 09:38 Dose: 20 mg Budesonide (Pulmicort Respules) 0.25 mg INH RBID [facility] Last Admin: 07/28/18 08:15 Dose: 0.25 mg Clopidogrel Bisulfate (Plavix) 75 mg PO DAILY [facility] Last Admin: 07/28/18 09:39 Dose: 75 mg Cyanocobalamin (Vitamin B12 1000 Mcg/Ml Inj) 1,000 mcg IM Q14D [facility] Last Admin: 07/23/18 10:17 Dose: 1,000 mcg Ergocalciferol (Drisdol 50,000 Intl Units Cap) 1 cap PO MO [facility] Last Admin: 07/27/18 08:20 Dose: 1 cap Fluconazole (Diflucan) 100 mg PO DAILY [facility]; Protocol Last Admin: 07/28/18 09:37 Dose: 100 mg Fluticasone Propionate (Flonase) 2 spr PRATIBHA HS PRN PRN Reason: Allergy symptoms Last Admin: 07/27/18 01:35 Dose: 2 spr Furosemide (Lasix) 20 mg PO Q48H [facility] Home Med (Patient's Own Medication) 5 unit MT TID [facility] Last Admin: 07/28/18 15:48 Dose: 5 unit Hydromorphone HCl (Dilaudid) 0.5 mg IVP Q4 PRN PRN Reason: Pain, severe (8-10) Azithromycin 500 mg/ Sodium (Chloride) 250 mls @ 250 mls/hr IVPB DAILY [facility]; Protocol Last Admin: 07/28/18 09:40 Dose: 250 mls/hr Isosorbide Mononitrate (Imdur Er) 30 mg PO DAILY [facility] Last Admin: 07/28/18 09:36 Dose: 30 mg Losartan Potassium (Cozaar) 25 mg PO DAILY [facility] Last Admin: 07/28/18 09:37 Dose: 25 mg Methylprednisolone (Solu-Medrol) 40 mg IVP Q12 [facility] Last Admin: 07/27/18 21:32 Dose: 40 mg Metoprolol Succinate (Toprol Xl) 25 mg PO DAILY [facility] Last Admin: 07/28/18 09:41 Dose: 25 mg Multivitamins/Minerals (Therapeutic-M Tab) 1 tab PO DAILY [facility] Last Admin: 07/28/18 09:37 Dose: 1 tab Nicotine (Nicoderm Cq) 1 patch TD DAILY [facility] Last Admin: 07/28/18 09:38 Dose: 1 patch Nitroglycerin (Nitrostat Sl Tab) 0.4 mg SL DAILY PRN PRN Reason: chest pain Octreotide Acetate (Sandostatin) 100 mcg SC Q12 [facility] Last Admin: 07/28/18 10:04 Dose: 100 mcg Pantoprazole Sodium (Protonix Ec Tab) 40 mg PO DAILY [facility] Last Admin: 07/28/18 09:39 Dose: 40 mg Sodium Chloride (Sodium Chloride Tab) 1 gm PO DAILY [facility] Last Admin: 07/28/18 09:42 Dose: 1 gm Trazodone HCl (Desyrel) 100 mg PO HS [facility] Last Admin: 07/27/18 22:19 Dose: 100 mg Zolpidem Tartrate (Ambien) 5 mg PO HS PRN PRN Reason: Sleep Last Admin: 07/28/18 00:16 Dose: 5 mg Physical Exam - Head Exam Head Exam: ATRAUMATIC - Eye Exam Eye Exam: Normal appearance - ENT Exam ENT Exam: Mucous Membranes Dry - Respiratory Exam Respiratory Exam: NORMAL BREATHING PATTERN - Cardiovascular Exam Cardiovascular Exam: +S1, +S2 - GI/Abdominal Exam GI & Abdominal Exam: Normal Bowel Sounds - Extremities Exam Extremities exam: Positive for: pedal edema - Neurological Exam Neurological exam: Oriented x3 - Psychiatric Exam Psychiatric exam: Normal Affect, Normal Mood - Skin Skin Exam: Warm Results - Vital Signs Recent Vital Signs: Last Vital Signs Temp 98.3 F 07/28/18 16:26 Pulse 77 07/28/18 16:26 Resp 20 07/28/18 16:26 BP 131/68 07/28/18 16:26 Pulse Ox 97 07/28/18 16:26 - Labs Result Diagrams: 07/28/18 14:05 07/27/18 08:23 Labs: Laboratory Results - last 24 hr 07/28/18 14:05 WBC 17.6 H D RBC 2.52 L Hgb 8.5 L Hct 25.2 L MCV 100.0 H MCH 33.7 H MCHC 33.7 RDW 14.0 Plt Count 229 Assessment & Plan (1) Hematoma Assessment and Plan: exacerbated by antiplatelets and lovenox agree with holding lovenox H/H appears to have plateaud repeat coags Status: Acute (2) Anemia Assessment and Plan: retic count, b12, folate, ferritin to further characterize acute blood loss from hematoma Status: Acute (3) Leukocytosis Assessment and Plan: on steroids receiving antibiotics Thank you for this interesting consult. Status: Acute
--- NOTE | 2018-07-28 17:43 | CP.PCM.PN ---
Subjective - Date & Time of Evaluation Date of Evaluation: 07/28/18 Time of Evaluation: 14:20 Objective - Vital Signs/Intake and Output Vital Signs (last 24 hours): Temp Pulse Resp BP Pulse Ox 98.3 F 77 20 131/68 97 07/28/18 16:26 07/28/18 16:26 07/28/18 16:26 07/28/18 16:26 07/28/18 16:26 - Medications Medications: Current Medications Acetaminophen (Tylenol 325mg Tab) 650 mg PO Q6 PRN PRN Reason: Headache Last Admin: 07/23/18 22:24 Dose: 650 mg Acetylcysteine (Acetylcysteine 20%) 2 ml INH RBID REPLACED BY [facility] Last Admin: 07/28/18 08:15 Dose: 2 ml Albuterol/Ipratropium (Duoneb 3 Mg/0.5 Mg (3 Ml) Ud) 3 ml INH RQ4 REPLACED BY [facility] Last Admin: 07/28/18 15:40 Dose: 3 ml Alprazolam (Xanax) 0.5 mg PO Q8 PRN PRN Reason: Anxiety Last Admin: 07/28/18 15:46 Dose: 0.5 mg Aspirin (Ecotrin) 325 mg PO DAILY REPLACED BY [facility] Last Admin: 07/28/18 09:36 Dose: 325 mg Atorvastatin Calcium (Lipitor) 20 mg PO DAILY REPLACED BY [facility] Last Admin: 07/28/18 09:38 Dose: 20 mg Budesonide (Pulmicort Respules) 0.25 mg INH RBID REPLACED BY [facility] Last Admin: 07/28/18 08:15 Dose: 0.25 mg Clopidogrel Bisulfate (Plavix) 75 mg PO DAILY REPLACED BY [facility] Last Admin: 07/28/18 09:39 Dose: 75 mg Cyanocobalamin (Vitamin B12 1000 Mcg/Ml Inj) 1,000 mcg IM Q14D REPLACED BY [facility] Last Admin: 07/23/18 10:17 Dose: 1,000 mcg Ergocalciferol (Drisdol 50,000 Intl Units Cap) 1 cap PO MO REPLACED BY [facility] Last Admin: 07/27/18 08:20 Dose: 1 cap Fluconazole (Diflucan) 100 mg PO DAILY REPLACED BY [facility]; Protocol Last Admin: 07/28/18 09:37 Dose: 100 mg Fluticasone Propionate (Flonase) 2 spr PRATIBHA HS PRN PRN Reason: Allergy symptoms Last Admin: 07/27/18 01:35 Dose: 2 spr Furosemide (Lasix) 20 mg PO Q48H REPLACED BY [facility] Home Med (Patient's Own Medication) 5 unit MT TID REPLACED BY [facility] Last Admin: 07/28/18 15:48 Dose: 5 unit Hydromorphone HCl (Dilaudid) 0.5 mg IVP Q4 PRN PRN Reason: Pain, severe (8-10) Azithromycin 500 mg/ Sodium (Chloride) 250 mls @ 250 mls/hr IVPB DAILY REPLACED BY [facility]; Protocol Last Admin: 07/28/18 09:40 Dose: 250 mls/hr Isosorbide Mononitrate (Imdur Er) 30 mg PO DAILY REPLACED BY [facility] Last Admin: 07/28/18 09:36 Dose: 30 mg Losartan Potassium (Cozaar) 25 mg PO DAILY REPLACED BY [facility] Last Admin: 07/28/18 09:37 Dose: 25 mg Methylprednisolone (Solu-Medrol) 40 mg IVP Q12 REPLACED BY [facility] Last Admin: 07/27/18 21:32 Dose: 40 mg Metoprolol Succinate (Toprol Xl) 25 mg PO DAILY REPLACED BY [facility] Last Admin: 07/28/18 09:41 Dose: 25 mg Multivitamins/Minerals (Therapeutic-M Tab) 1 tab PO DAILY REPLACED BY [facility] Last Admin: 07/28/18 09:37 Dose: 1 tab Nicotine (Nicoderm Cq) 1 patch TD DAILY REPLACED BY [facility] Last Admin: 07/28/18 09:38 Dose: 1 patch Nitroglycerin (Nitrostat Sl Tab) 0.4 mg SL DAILY PRN PRN Reason: chest pain Octreotide Acetate (Sandostatin) 100 mcg SC Q12 REPLACED BY [facility] Last Admin: 07/28/18 10:04 Dose: 100 mcg Pantoprazole Sodium (Protonix Ec Tab) 40 mg PO DAILY REPLACED BY [facility] Last Admin: 07/28/18 09:39 Dose: 40 mg Sodium Chloride (Sodium Chloride Tab) 1 gm PO DAILY REPLACED BY [facility] Last Admin: 07/28/18 09:42 Dose: 1 gm Trazodone HCl (Desyrel) 100 mg PO HS REPLACED BY [facility] Last Admin: 07/27/18 22:19 Dose: 100 mg Zolpidem Tartrate (Ambien) 5 mg PO HS PRN PRN Reason: Sleep Last Admin: 07/28/18 00:16 Dose: 5 mg - Labs Labs: 07/28/18 14:05 07/27/18 08:23 PT 11.3 Seconds (9.8-13.1) 07/24/18 13:14 INR 1.0 07/24/18 13:14 Assessment and Plan (1) Influenza A H1N1 infection Status: Acute (2) COPD exacerbation Status: Acute (3) NSTEMI (non-ST elevated myocardial infarction) Status: Acute (4) Hyponatremia Status: Acute (5) Chronic congestive heart failure Status: Chronic (6) Anxiety disorder Status: Acute (7) Hypertension Status: Chronic (8) Anemia Status: Acute - Assessment and Plan (Free Text) Plan: Transfuse 1 Unit PRBCs in Splits.
--- NOTE | 2018-07-28 18:37 | CP.PCM.PN ---
Subjective - Date & Time of Evaluation Date of Evaluation: 07/28/18 Time of Evaluation: 13:00 - Subjective Subjective: Patient reports emptying out ostomy bag twice yesterday; not eating much; Objective - Vital Signs/Intake and Output Vital Signs (last 24 hours): Temp Pulse Resp BP Pulse Ox 98.3 F 77 20 131/68 97 07/28/18 16:26 07/28/18 16:26 07/28/18 16:26 07/28/18 16:26 07/28/18 16:26 - Medications Medications: Current Medications Acetaminophen (Tylenol 325mg Tab) 650 mg PO Q6 PRN PRN Reason: Headache Last Admin: 07/23/18 22:24 Dose: 650 mg Acetylcysteine (Acetylcysteine 20%) 2 ml INH RBID [facility] Last Admin: 07/28/18 08:15 Dose: 2 ml Albuterol/Ipratropium (Duoneb 3 Mg/0.5 Mg (3 Ml) Ud) 3 ml INH RQ4 [facility] Last Admin: 07/28/18 15:40 Dose: 3 ml Alprazolam (Xanax) 0.5 mg PO Q8 PRN PRN Reason: Anxiety Last Admin: 07/28/18 15:46 Dose: 0.5 mg Aspirin (Ecotrin) 325 mg PO DAILY [facility] Last Admin: 07/28/18 09:36 Dose: 325 mg Atorvastatin Calcium (Lipitor) 20 mg PO DAILY [facility] Last Admin: 07/28/18 09:38 Dose: 20 mg Budesonide (Pulmicort Respules) 0.25 mg INH RBID [facility] Last Admin: 07/28/18 08:15 Dose: 0.25 mg Clopidogrel Bisulfate (Plavix) 75 mg PO DAILY [facility] Last Admin: 07/28/18 09:39 Dose: 75 mg Cyanocobalamin (Vitamin B12 1000 Mcg/Ml Inj) 1,000 mcg IM Q14D [facility] Last Admin: 07/23/18 10:17 Dose: 1,000 mcg Ergocalciferol (Drisdol 50,000 Intl Units Cap) 1 cap PO MO [facility] Last Admin: 07/27/18 08:20 Dose: 1 cap Fluconazole (Diflucan) 100 mg PO DAILY [facility]; Protocol Last Admin: 07/28/18 09:37 Dose: 100 mg Fluticasone Propionate (Flonase) 2 spr PRATIBHA HS PRN PRN Reason: Allergy symptoms Last Admin: 07/27/18 01:35 Dose: 2 spr Furosemide (Lasix) 20 mg PO Q48H [facility] Home Med (Patient's Own Medication) 5 unit MT TID [facility] Last Admin: 07/28/18 15:48 Dose: 5 unit Hydromorphone HCl (Dilaudid) 0.5 mg IVP Q4 PRN PRN Reason: Pain, severe (8-10) Azithromycin 500 mg/ Sodium (Chloride) 250 mls @ 250 mls/hr IVPB DAILY [facility]; Protocol Last Admin: 07/28/18 09:40 Dose: 250 mls/hr Isosorbide Mononitrate (Imdur Er) 30 mg PO DAILY [facility] Last Admin: 07/28/18 09:36 Dose: 30 mg Losartan Potassium (Cozaar) 25 mg PO DAILY [facility] Last Admin: 07/28/18 09:37 Dose: 25 mg Methylprednisolone (Solu-Medrol) 40 mg IVP Q12 [facility] Last Admin: 07/27/18 21:32 Dose: 40 mg Metoprolol Succinate (Toprol Xl) 25 mg PO DAILY [facility] Last Admin: 07/28/18 09:41 Dose: 25 mg Multivitamins/Minerals (Therapeutic-M Tab) 1 tab PO DAILY [facility] Last Admin: 07/28/18 09:37 Dose: 1 tab Nicotine (Nicoderm Cq) 1 patch TD DAILY [facility] Last Admin: 07/28/18 09:38 Dose: 1 patch Nitroglycerin (Nitrostat Sl Tab) 0.4 mg SL DAILY PRN PRN Reason: chest pain Octreotide Acetate (Sandostatin) 100 mcg SC Q12 [facility] Last Admin: 07/28/18 10:04 Dose: 100 mcg Pantoprazole Sodium (Protonix Ec Tab) 40 mg PO DAILY [facility] Last Admin: 07/28/18 09:39 Dose: 40 mg Sodium Chloride (Sodium Chloride Tab) 1 gm PO DAILY [facility] Last Admin: 07/28/18 09:42 Dose: 1 gm Trazodone HCl (Desyrel) 100 mg PO HS [facility] Last Admin: 07/27/18 22:19 Dose: 100 mg Zolpidem Tartrate (Ambien) 5 mg PO HS PRN PRN Reason: Sleep Last Admin: 07/28/18 00:16 Dose: 5 mg - Labs Labs: 07/28/18 14:05 07/27/18 08:23 PT 11.3 Seconds (9.8-13.1) 07/24/18 13:14 INR 1.0 07/24/18 13:14 - Constitutional Appears: Non-toxic, No Acute Distress - Eye Exam Eye Exam: Normal appearance - Respiratory Exam Respiratory Exam: absent: Respiratory Distress - Cardiovascular Exam Cardiovascular Exam: RRR, +S1, +S2 - GI/Abdominal Exam GI & Abdominal Exam: Soft. absent: Distended - Extremities Exam Additional comments: no leg edema; - Neurological Exam Neurological Exam: Alert, Awake - Psychiatric Exam Psychiatric exam: Normal Mood. absent: Agitated - Skin Skin Exam: Warm. absent: Cyanosis Assessment and Plan (1) Hyponatremia Assessment & Plan: Acute on chronic; improved with IVF and single tolvaptan dose; -continue salt tabs and increased dietary Na intake; Status: Acute (2) Chronic congestive heart failure Status: Chronic (3) Hypertension Assessment & Plan: BP controlled on current meds, continue; Status: Chronic
[2018-07-28] MEDS: MethylPREDNISolone 40 mg Vial IVP SCH (21:53)
[2018-07-29] MEDS: Albuterol-Ipratrop 3 mg / 0.5 (3 ml) UD INH SCH ×6 (04:00→19:16)
[2018-07-29] MEDS ORDERED: Sodium Chloride 3% for Inhalation 4 ML VIAL.NEB IH PRN (08:06)
[2018-07-29] MEDS: Budesonide 0.25 mg/2 ml Inhal Susp UD INH SCH ×2 (08:13→19:16)
[2018-07-29] MEDS: Acetylcysteine 20% Inhal Soln (4ml) INH SCH ×2 (08:14→19:17)
[2018-07-29] MEDS: Pantoprazole 40 mg EC Tab PO SCH (08:56)
[2018-07-29] MEDS: Aspirin 325 mg EC Tablets PO SCH (08:56)
[2018-07-29] MEDS: Multivitamin With Minerals Tab PO SCH (08:58)
[2018-07-29] MEDS: MethylPREDNISolone 40 mg Vial IVP SCH ×2 (09:00→21:13)
[2018-07-29] MEDS: Metoprolol Succinate 25 mg XL Tab PO SCH (09:00)
[2018-07-29] MEDS: Azithromycin 500 MG in Sodium Chloride 0.9% 250 ML IVPB SCH (09:01)
[2018-07-29] MEDS: guaiFENesin-DM 600-30 mg ER Tab PO SCH ×2 (10:00→19:01)
--- NOTE | 2018-07-29 10:33 | CP.PCM.PN ---
Subjective - Date & Time of Evaluation Date of Evaluation: 07/29/18 Time of Evaluation: 10:33 - Subjective Subjective: STILL COUGHING WITH SOB UNABLE TO EXPECTORATE SPUTUM Objective - Vital Signs/Intake and Output Vital Signs (last 24 hours): Temp Pulse Resp BP Pulse Ox 97.6 F 78 20 146/71 99 07/29/18 08:13 07/29/18 09:00 07/29/18 08:13 07/29/18 09:00 07/29/18 08:13 - Medications Medications: Current Medications Acetaminophen (Tylenol 325mg Tab) 650 mg PO Q6 PRN PRN Reason: Headache Last Admin: 07/23/18 22:24 Dose: 650 mg Acetylcysteine (Acetylcysteine 20%) 2 ml INH RBID [facility] Last Admin: 07/29/18 08:14 Dose: 2 ml Albuterol/Ipratropium (Duoneb 3 Mg/0.5 Mg (3 Ml) Ud) 3 ml INH RQ4 [facility] Last Admin: 07/29/18 08:13 Dose: 3 ml Alprazolam (Xanax) 0.5 mg PO Q8 PRN PRN Reason: Anxiety Last Admin: 07/29/18 08:55 Dose: 0.5 mg Aspirin (Ecotrin) 325 mg PO DAILY [facility] Last Admin: 07/29/18 08:56 Dose: 325 mg Atorvastatin Calcium (Lipitor) 20 mg PO DAILY [facility] Last Admin: 07/29/18 08:58 Dose: 20 mg Budesonide (Pulmicort Respules) 0.25 mg INH RBID [facility] Last Admin: 07/29/18 08:13 Dose: 0.25 mg Clopidogrel Bisulfate (Plavix) 75 mg PO DAILY [facility] Last Admin: 07/29/18 08:58 Dose: 75 mg Cyanocobalamin (Vitamin B12 1000 Mcg/Ml Inj) 1,000 mcg IM Q14D [facility] Last Admin: 07/23/18 10:17 Dose: 1,000 mcg Ergocalciferol (Drisdol 50,000 Intl Units Cap) 1 cap PO MO [facility] Last Admin: 07/27/18 08:20 Dose: 1 cap Fluconazole (Diflucan) 100 mg PO DAILY [facility]; Protocol Last Admin: 07/29/18 08:59 Dose: 100 mg Fluticasone Propionate (Flonase) 2 spr PRATIBHA HS PRN PRN Reason: Allergy symptoms Last Admin: 07/27/18 01:35 Dose: 2 spr Furosemide (Lasix) 20 mg PO Q48H [facility] Guaifenesin/Dextromethorphan (Mucinex-Dm 600-30 Mg) 1 tab PO BID [facility] Home Med (Patient's Own Medication) 5 unit MT TID [facility] Last Admin: 07/29/18 08:55 Dose: 5 unit Hydromorphone HCl (Dilaudid) 0.5 mg IVP Q4 PRN PRN Reason: Pain, severe (8-10) Azithromycin 500 mg/ Sodium (Chloride) 250 mls @ 250 mls/hr IVPB DAILY [facility]; Protocol Last Admin: 07/29/18 09:01 Dose: 250 mls/hr Ceftriaxone Sodium 1 gm/ (Sodium Chloride) 100 mls @ 100 mls/hr IVPB DAILY [facility]; Protocol Isosorbide Mononitrate (Imdur Er) 30 mg PO DAILY [facility] Last Admin: 07/29/18 09:19 Dose: 30 mg Losartan Potassium (Cozaar) 25 mg PO DAILY [facility] Last Admin: 07/29/18 08:58 Dose: 25 mg Methylprednisolone (Solu-Medrol) 40 mg IVP Q12 [facility] Last Admin: 07/29/18 09:00 Dose: 40 mg Metoprolol Succinate (Toprol Xl) 25 mg PO DAILY [facility] Last Admin: 07/29/18 09:00 Dose: 25 mg Multivitamins/Minerals (Therapeutic-M Tab) 1 tab PO DAILY [facility] Last Admin: 07/29/18 08:58 Dose: 1 tab Nicotine (Nicoderm Cq) 1 patch TD DAILY [facility] Last Admin: 07/29/18 08:59 Dose: 1 patch Nitroglycerin (Nitrostat Sl Tab) 0.4 mg SL DAILY PRN PRN Reason: chest pain Octreotide Acetate (Sandostatin) 100 mcg SC Q12 [facility] Last Admin: 07/29/18 09:10 Dose: 100 mcg Pantoprazole Sodium (Protonix Ec Tab) 40 mg PO DAILY [facility] Last Admin: 07/29/18 08:56 Dose: 40 mg Sodium Chloride (Sodium Chloride Tab) 1 gm PO DAILY [facility] Last Admin: 07/29/18 08:58 Dose: 1 gm Trazodone HCl (Desyrel) 100 mg PO HS [facility] Last Admin: 07/28/18 21:55 Dose: 100 mg Zolpidem Tartrate (Ambien) 5 mg PO HS PRN PRN Reason: Sleep Last Admin: 07/28/18 00:16 Dose: 5 mg - Labs Labs: 07/28/18 14:05 07/27/18 08:23 PT 11.3 Seconds (9.8-13.1) 07/24/18 13:14 INR 1.0 07/24/18 13:14 - Constitutional Appears: Chronically Ill - Head Exam Head Exam: ATRAUMATIC, NORMAL INSPECTION, NORMOCEPHALIC - Eye Exam Eye Exam: EOMI, Normal appearance, PERRL Pupil Exam: NORMAL ACCOMODATION, PERRL - ENT Exam ENT Exam: Mucous Membranes Moist, Normal Exam - Neck Exam Neck Exam: Full ROM, Normal Inspection. absent: Lymphadenopathy - Respiratory Exam Respiratory Exam: Decreased Breath Sounds, Prolonged Expiratory Phase, Rales, Wheezes, NORMAL BREATHING PATTERN - Cardiovascular Exam Cardiovascular Exam: REGULAR RHYTHM, +S1, +S2. absent: Murmur - GI/Abdominal Exam GI & Abdominal Exam: Soft, Normal Bowel Sounds. absent: Tenderness - Rectal Exam Rectal Exam: NORMAL INSPECTION - Exam External exam: NORMAL EXTERNAL EXAM - Extremities Exam Extremities Exam: Full ROM, Normal Capillary Refill, Normal Inspection. absent: Joint Swelling, Pedal Edema - Back Exam Back Exam: NORMAL INSPECTION - Neurological Exam Neurological Exam: Alert, Awake, CN II-XII Intact, Normal Gait, Oriented x3 - Psychiatric Exam Psychiatric exam: Normal Affect, Normal Mood - Skin Skin Exam: Dry, Intact, Normal Color, Warm Assessment and Plan - Assessment and Plan (Free Text) Assessment: COPD EXAC MUCUS PLUGGING OF AIRWAYS FLU S/P NSTEMI Plan: CONTINUE CURRENT RX BEDSIDE SPIROMETRY
--- NOTE | 2018-07-29 10:39 | CP.PCM.PN ---
Subjective - Date & Time of Evaluation Date of Evaluation: 07/29/18 Time of Evaluation: 09:00 - Subjective Subjective: NO CHEST PAIN STILL WITH SOB AND COUGH Objective - Vital Signs/Intake and Output Vital Signs (last 24 hours): Temp Pulse Resp BP Pulse Ox 97.6 F 78 20 146/71 99 07/29/18 08:13 07/29/18 09:00 07/29/18 08:13 07/29/18 09:00 07/29/18 08:13 - Medications Medications: Current Medications Acetaminophen (Tylenol 325mg Tab) 650 mg PO Q6 PRN PRN Reason: Headache Last Admin: 07/23/18 22:24 Dose: 650 mg Acetylcysteine (Acetylcysteine 20%) 2 ml INH RBID [facility] Last Admin: 07/29/18 08:14 Dose: 2 ml Albuterol/Ipratropium (Duoneb 3 Mg/0.5 Mg (3 Ml) Ud) 3 ml INH RQ4 [facility] Last Admin: 07/29/18 08:13 Dose: 3 ml Alprazolam (Xanax) 0.5 mg PO Q8 PRN PRN Reason: Anxiety Last Admin: 07/29/18 08:55 Dose: 0.5 mg Aspirin (Ecotrin) 325 mg PO DAILY [facility] Last Admin: 07/29/18 08:56 Dose: 325 mg Atorvastatin Calcium (Lipitor) 20 mg PO DAILY [facility] Last Admin: 07/29/18 08:58 Dose: 20 mg Budesonide (Pulmicort Respules) 0.25 mg INH RBID [facility] Last Admin: 07/29/18 08:13 Dose: 0.25 mg Clopidogrel Bisulfate (Plavix) 75 mg PO DAILY [facility] Last Admin: 07/29/18 08:58 Dose: 75 mg Cyanocobalamin (Vitamin B12 1000 Mcg/Ml Inj) 1,000 mcg IM Q14D [facility] Last Admin: 07/23/18 10:17 Dose: 1,000 mcg Ergocalciferol (Drisdol 50,000 Intl Units Cap) 1 cap PO MO [facility] Last Admin: 07/27/18 08:20 Dose: 1 cap Fluconazole (Diflucan) 100 mg PO DAILY [facility]; Protocol Last Admin: 07/29/18 08:59 Dose: 100 mg Fluticasone Propionate (Flonase) 2 spr PRATIBHA HS PRN PRN Reason: Allergy symptoms Last Admin: 07/27/18 01:35 Dose: 2 spr Furosemide (Lasix) 20 mg PO Q48H [facility] Guaifenesin/Dextromethorphan (Mucinex-Dm 600-30 Mg) 1 tab PO BID [facility] Home Med (Patient's Own Medication) 5 unit MT TID [facility] Last Admin: 07/29/18 08:55 Dose: 5 unit Hydromorphone HCl (Dilaudid) 0.5 mg IVP Q4 PRN PRN Reason: Pain, severe (8-10) Azithromycin 500 mg/ Sodium (Chloride) 250 mls @ 250 mls/hr IVPB DAILY [facility]; Protocol Last Admin: 07/29/18 09:01 Dose: 250 mls/hr Ceftriaxone Sodium 1 gm/ (Sodium Chloride) 100 mls @ 100 mls/hr IVPB DAILY [facility]; Protocol Isosorbide Mononitrate (Imdur Er) 30 mg PO DAILY [facility] Last Admin: 07/29/18 09:19 Dose: 30 mg Losartan Potassium (Cozaar) 25 mg PO DAILY [facility] Last Admin: 07/29/18 08:58 Dose: 25 mg Methylprednisolone (Solu-Medrol) 40 mg IVP Q12 [facility] Last Admin: 07/29/18 09:00 Dose: 40 mg Metoprolol Succinate (Toprol Xl) 25 mg PO DAILY [facility] Last Admin: 07/29/18 09:00 Dose: 25 mg Multivitamins/Minerals (Therapeutic-M Tab) 1 tab PO DAILY [facility] Last Admin: 07/29/18 08:58 Dose: 1 tab Nicotine (Nicoderm Cq) 1 patch TD DAILY [facility] Last Admin: 07/29/18 08:59 Dose: 1 patch Nitroglycerin (Nitrostat Sl Tab) 0.4 mg SL DAILY PRN PRN Reason: chest pain Octreotide Acetate (Sandostatin) 100 mcg SC Q12 [facility] Last Admin: 07/29/18 09:10 Dose: 100 mcg Pantoprazole Sodium (Protonix Ec Tab) 40 mg PO DAILY [facility] Last Admin: 07/29/18 08:56 Dose: 40 mg Promethazine HCl/Dextromethorphan (Phenergan Dm Syrup) 10 ml PO Q6 PRN PRN Reason: Cough Sodium Chloride (Sodium Chloride Tab) 1 gm PO DAILY [facility] Last Admin: 07/29/18 08:58 Dose: 1 gm Trazodone HCl (Desyrel) 100 mg PO HS [facility] Last Admin: 07/28/18 21:55 Dose: 100 mg Zolpidem Tartrate (Ambien) 5 mg PO HS PRN PRN Reason: Sleep Last Admin: 07/28/18 00:16 Dose: 5 mg - Labs Labs: 07/28/18 14:05 07/27/18 08:23 PT 11.3 Seconds (9.8-13.1) 07/24/18 13:14 INR 1.0 07/24/18 13:14 - Respiratory Exam Respiratory Exam: Decreased Breath Sounds, Wheezes - Cardiovascular Exam Cardiovascular Exam: REGULAR RHYTHM, +S1, +S2 - Extremities Exam Additional comments: NO LE EDEMA - Additional Findings Additional findings: EXPERIMENTAL WELDER NSR Assessment and Plan - Assessment and Plan (Free Text) Assessment: ACUTE AWMI EXTENSION COPD EXACERBATION AND INFLUENZA HYPERTENSION Plan: CONTINUE ANTIBIOTICS, LOSARTAN, ASPIRIN, CLOPIDOGREL, NITRATES, FUROSEMIDE, ATORVASTATIN AND METOPROLOL
--- NOTE | 2018-07-29 13:30 | CT ---
Date of service: 07/29/2018 PROCEDURE: CT Chest without contrast HISTORY: cough, pna, f/u COMPARISON: CT chest dated 02/03/2016. TECHNIQUE: Contiguous axial images were obtained through the chest without intravenous contrast enhancement. Sagittal and coronal reconstructions were performed. Radiation dose: Total exam DLP = 185.17 mGy-cm. This CT exam was performed using one or more of the following dose reduction techniques: Automated exposure control, adjustment of the mA and/or kV according to patient size, and/or use of iterative reconstruction technique. FINDINGS: LUNGS: Chronic interstitial changes. Centrilobular emphysema. Right upper lobe subpleural blebs/bullae patchy reticular nodular/tree-in-bud opacities in the inferior right upper lobe, right middle lobe, left upper lobe and predominantly concentrated in the bilateral lower lobes. Left larger than right lower lobe consolidations. Visualized airway clear MEDIASTINUM: Unremarkable thoracic aorta. No aneurysm. Normal sized heart. Main pulmonary artery unremarkable. No vascular congestion. No lymphadenopathy. Aortic atherosclerotic calcification. Left chest wall subclavian vein access chest port with catheter tip at the cavoatrial junction. PLEURA: Trace bilateral pleural effusions. No pneumothorax. BONES: No fracture. No destructive lesion. UPPER ABDOMEN: Grossly unremarkable. OTHER FINDINGS: None. IMPRESSION: Bilateral lower lobe consolidations, left larger than right, with scattered reticular nodular/tree-in-bud opacities seen in all lobes, likely infectious/inflammatory. Trace bilateral pleural effusions.
[2018-07-29 13:41] LABS: MEAN CELL VOLUME 95.4 fl (81.0-99.0); MEAN CORPUSCULAR HEMOGLOBIN 32.6 pg (27.0-31.0); MEAN CORPUSCULAR HGB CONC 34.1 g/dL (33.0-37.0); RBC 3.26 Mil/uL (3.80-5.20); RED CELL DISTRIBUTION WIDTH 16.3 % (11.5-14.5); WHITE BLOOD COUNT 15.6 K/uL (4.8-10.8)
[2018-07-29 13:48] LABS: PROTHROMBIN TIME 11.1 Seconds (9.8-13.1)
[2018-07-29 13:56] LABS: HEMOGLOBIN 10.6 g/dL (12.0-16.0)
[2018-07-29] MEDS ORDERED: Acetylcysteine 10% 30 ML IH SCH (14:00)
[2018-07-29] MEDS: Promethazine DM 12.5 mg-30 mg/10 ml Syrup PO PRN ×2 (14:16→23:14)
[2018-07-29 14:18] LABS: BLOOD UREA NITROGEN 26 mg/dl (7-17); GFR NON-AFRICAN AMERICAN > 60
--- NOTE | 2018-07-29 21:32 | CP.PCM.PN ---
Subjective - Date & Time of Evaluation Date of Evaluation: 07/29/18 Objective - Vital Signs/Intake and Output Vital Signs (last 24 hours): Temp Pulse Resp BP Pulse Ox 98.1 F 75 22 129/85 95 07/29/18 19:59 07/29/18 19:59 07/29/18 19:59 07/29/18 19:59 07/29/18 19:59 - Medications Medications: Current Medications Acetaminophen (Tylenol 325mg Tab) 650 mg PO Q6 PRN PRN Reason: Headache Last Admin: 07/23/18 22:24 Dose: 650 mg Acetylcysteine (Acetylcysteine 20%) 2 ml INH RBID [facility] Last Admin: 07/29/18 19:17 Dose: 2 ml Albuterol/Ipratropium (Duoneb 3 Mg/0.5 Mg (3 Ml) Ud) 3 ml INH RQ4 [facility] Last Admin: 07/29/18 19:16 Dose: 3 ml Alprazolam (Xanax) 0.5 mg PO Q8 PRN PRN Reason: Anxiety Last Admin: 07/29/18 08:55 Dose: 0.5 mg Aspirin (Ecotrin) 325 mg PO DAILY [facility] Last Admin: 07/29/18 08:56 Dose: 325 mg Atorvastatin Calcium (Lipitor) 20 mg PO DAILY [facility] Last Admin: 07/29/18 08:58 Dose: 20 mg Budesonide (Pulmicort Respules) 0.25 mg INH RBID [facility] Last Admin: 07/29/18 19:16 Dose: 0.25 mg Clopidogrel Bisulfate (Plavix) 75 mg PO DAILY [facility] Last Admin: 07/29/18 08:58 Dose: 75 mg Cyanocobalamin (Vitamin B12 1000 Mcg/Ml Inj) 1,000 mcg IM Q14D [facility] Last Admin: 07/23/18 10:17 Dose: 1,000 mcg Ergocalciferol (Drisdol 50,000 Intl Units Cap) 1 cap PO MO [facility] Last Admin: 07/27/18 08:20 Dose: 1 cap Fluconazole (Diflucan) 100 mg PO DAILY [facility]; Protocol Last Admin: 07/29/18 08:59 Dose: 100 mg Fluticasone Propionate (Flonase) 2 spr PRATIBHA HS PRN PRN Reason: Allergy symptoms Last Admin: 07/27/18 01:35 Dose: 2 spr Furosemide (Lasix) 20 mg PO Q48H [facility] Guaifenesin/Dextromethorphan (Mucinex-Dm 600-30 Mg) 1 tab PO BID [facility] Last Admin: 07/29/18 19:01 Dose: 1 tab Home Med (Patient's Own Medication) 5 unit MT TID [facility] Last Admin: 07/29/18 19:00 Dose: 5 unit Hydromorphone HCl (Dilaudid) 0.5 mg IVP Q4 PRN PRN Reason: Pain, severe (8-10) Azithromycin 500 mg/ Sodium (Chloride) 250 mls @ 250 mls/hr IVPB DAILY [facility]; Protocol Last Admin: 07/29/18 09:01 Dose: 250 mls/hr Ceftriaxone Sodium 1 gm/ (Sodium Chloride) 100 mls @ 100 mls/hr IVPB DAILY [facility]; Protocol Last Admin: 07/29/18 12:18 Dose: 100 mls/hr Isosorbide Mononitrate (Imdur Er) 30 mg PO DAILY [facility] Last Admin: 07/29/18 09:19 Dose: 30 mg Losartan Potassium (Cozaar) 25 mg PO DAILY [facility] Last Admin: 07/29/18 08:58 Dose: 25 mg Methylprednisolone (Solu-Medrol) 40 mg IVP Q12 [facility] Last Admin: 07/29/18 21:13 Dose: 40 mg Metoprolol Succinate (Toprol Xl) 25 mg PO DAILY [facility] Last Admin: 07/29/18 09:00 Dose: 25 mg Multivitamins/Minerals (Therapeutic-M Tab) 1 tab PO DAILY [facility] Last Admin: 07/29/18 08:58 Dose: 1 tab Nicotine (Nicoderm Cq) 1 patch TD DAILY [facility] Last Admin: 07/29/18 08:59 Dose: 1 patch Nitroglycerin (Nitrostat Sl Tab) 0.4 mg SL DAILY PRN PRN Reason: chest pain Octreotide Acetate (Sandostatin) 100 mcg SC Q12 [facility] Last Admin: 07/29/18 21:12 Dose: 100 mcg Pantoprazole Sodium (Protonix Ec Tab) 40 mg PO DAILY [facility] Last Admin: 07/29/18 08:56 Dose: 40 mg Promethazine HCl/Dextromethorphan (Phenergan Dm Syrup) 10 ml PO Q6 PRN PRN Reason: Cough Last Admin: 07/29/18 14:16 Dose: 10 ml Sodium Chloride (Sodium Chloride Tab) 1 gm PO DAILY [facility] Last Admin: 07/29/18 08:58 Dose: 1 gm Trazodone HCl (Desyrel) 100 mg PO HS [facility] Last Admin: 07/29/18 21:13 Dose: 100 mg Zolpidem Tartrate (Ambien) 5 mg PO HS PRN PRN Reason: Sleep Last Admin: 07/28/18 00:16 Dose: 5 mg - Labs Labs: 07/29/18 13:30 07/29/18 13:30 PT 11.1 Seconds (9.8-13.1) 07/29/18 13:30 INR 1.0 07/29/18 13:30 APTT 25.0 Seconds (25.6-37.1) L 07/29/18 13:30 Assessment and Plan (1) Influenza A H1N1 infection Status: Acute (2) COPD exacerbation Status: Acute (3) NSTEMI (non-ST elevated myocardial infarction) Status: Acute (4) Hyponatremia Status: Acute (5) Chronic congestive heart failure Status: Chronic (6) Anxiety disorder Status: Acute (7) Hypertension Status: Chronic (8) Anemia Status: Acute
--- NOTE | 2018-07-29 22:38 | CP.PCM.PN ---
Subjective - Date & Time of Evaluation Date of Evaluation: 07/29/18 Time of Evaluation: 13:00 - Subjective Subjective: Patient with cough; emptied ostomy bag once today; s/p 1 u prbc transfusion today; Objective - Vital Signs/Intake and Output Vital Signs (last 24 hours): Temp Pulse Resp BP Pulse Ox 98.1 F 75 22 129/85 95 07/29/18 19:59 07/29/18 19:59 07/29/18 19:59 07/29/18 19:59 07/29/18 19:59 - Medications Medications: Current Medications Acetaminophen (Tylenol 325mg Tab) 650 mg PO Q6 PRN PRN Reason: Headache Last Admin: 07/23/18 22:24 Dose: 650 mg Acetylcysteine (Acetylcysteine 20%) 2 ml INH RBID [facility] Last Admin: 07/29/18 19:17 Dose: 2 ml Albuterol/Ipratropium (Duoneb 3 Mg/0.5 Mg (3 Ml) Ud) 3 ml INH RQ4 [facility] Last Admin: 07/29/18 19:16 Dose: 3 ml Alprazolam (Xanax) 0.5 mg PO Q8 PRN PRN Reason: Anxiety Last Admin: 07/29/18 08:55 Dose: 0.5 mg Aspirin (Ecotrin) 325 mg PO DAILY [facility] Last Admin: 07/29/18 08:56 Dose: 325 mg Atorvastatin Calcium (Lipitor) 20 mg PO DAILY [facility] Last Admin: 07/29/18 08:58 Dose: 20 mg Budesonide (Pulmicort Respules) 0.25 mg INH RBID [facility] Last Admin: 07/29/18 19:16 Dose: 0.25 mg Clopidogrel Bisulfate (Plavix) 75 mg PO DAILY [facility] Last Admin: 07/29/18 08:58 Dose: 75 mg Cyanocobalamin (Vitamin B12 1000 Mcg/Ml Inj) 1,000 mcg IM Q14D [facility] Last Admin: 07/23/18 10:17 Dose: 1,000 mcg Ergocalciferol (Drisdol 50,000 Intl Units Cap) 1 cap PO MO [facility] Last Admin: 07/27/18 08:20 Dose: 1 cap Fluconazole (Diflucan) 100 mg PO DAILY [facility]; Protocol Last Admin: 07/29/18 08:59 Dose: 100 mg Fluticasone Propionate (Flonase) 2 spr PRATIBHA HS PRN PRN Reason: Allergy symptoms Last Admin: 07/27/18 01:35 Dose: 2 spr Furosemide (Lasix) 20 mg PO Q48H [facility] Guaifenesin/Dextromethorphan (Mucinex-Dm 600-30 Mg) 1 tab PO BID [facility] Last Admin: 07/29/18 19:01 Dose: 1 tab Home Med (Patient's Own Medication) 5 unit MT TID [facility] Last Admin: 07/29/18 19:00 Dose: 5 unit Hydromorphone HCl (Dilaudid) 0.5 mg IVP Q4 PRN PRN Reason: Pain, severe (8-10) Azithromycin 500 mg/ Sodium (Chloride) 250 mls @ 250 mls/hr IVPB DAILY [facility]; Protocol Last Admin: 07/29/18 09:01 Dose: 250 mls/hr Ceftriaxone Sodium 1 gm/ (Sodium Chloride) 100 mls @ 100 mls/hr IVPB DAILY [facility]; Protocol Last Admin: 07/29/18 12:18 Dose: 100 mls/hr Isosorbide Mononitrate (Imdur Er) 30 mg PO DAILY [facility] Last Admin: 07/29/18 09:19 Dose: 30 mg Losartan Potassium (Cozaar) 25 mg PO DAILY [facility] Last Admin: 07/29/18 08:58 Dose: 25 mg Methylprednisolone (Solu-Medrol) 40 mg IVP Q12 [facility] Last Admin: 07/29/18 21:13 Dose: 40 mg Metoprolol Succinate (Toprol Xl) 25 mg PO DAILY [facility] Last Admin: 07/29/18 09:00 Dose: 25 mg Multivitamins/Minerals (Therapeutic-M Tab) 1 tab PO DAILY [facility] Last Admin: 07/29/18 08:58 Dose: 1 tab Nicotine (Nicoderm Cq) 1 patch TD DAILY [facility] Last Admin: 07/29/18 08:59 Dose: 1 patch Nitroglycerin (Nitrostat Sl Tab) 0.4 mg SL DAILY PRN PRN Reason: chest pain Octreotide Acetate (Sandostatin) 100 mcg SC Q12 [facility] Last Admin: 07/29/18 21:12 Dose: 100 mcg Pantoprazole Sodium (Protonix Ec Tab) 40 mg PO DAILY [facility] Last Admin: 07/29/18 08:56 Dose: 40 mg Promethazine HCl/Dextromethorphan (Phenergan Dm Syrup) 10 ml PO Q6 PRN PRN Reason: Cough Last Admin: 07/29/18 14:16 Dose: 10 ml Sodium Chloride (Sodium Chloride Tab) 1 gm PO DAILY [facility] Last Admin: 07/29/18 08:58 Dose: 1 gm Trazodone HCl (Desyrel) 100 mg PO HS [facility] Last Admin: 07/29/18 21:13 Dose: 100 mg Zolpidem Tartrate (Ambien) 5 mg PO HS PRN PRN Reason: Sleep Last Admin: 07/28/18 00:16 Dose: 5 mg - Labs Labs: 07/29/18 13:30 07/29/18 13:30 PT 11.1 Seconds (9.8-13.1) 07/29/18 13:30 INR 1.0 07/29/18 13:30 APTT 25.0 Seconds (25.6-37.1) L 07/29/18 13:30 - Constitutional Appears: Non-toxic, No Acute Distress - Eye Exam Eye Exam: Normal appearance - Respiratory Exam Respiratory Exam: absent: Respiratory Distress - Cardiovascular Exam Cardiovascular Exam: RRR, +S1, +S2 - GI/Abdominal Exam GI & Abdominal Exam: Soft. absent: Distended - Extremities Exam Additional comments: no significant leg edema; - Neurological Exam Neurological Exam: Alert, Awake - Psychiatric Exam Psychiatric exam: Normal Mood. absent: Agitated - Skin Skin Exam: Warm. absent: Cyanosis Assessment and Plan (1) Hyponatremia Assessment & Plan: Acute on chronic; repeat labs today showing mild hyponatremia but relatively stable; -recommend to continue salt tabs and increased Na diet; -will benefit from intermittent lasix 20 mg q48hr (received 40 mg IVP today with prbc transfusion); Status: Acute (2) Chronic congestive heart failure Assessment & Plan: No signs of being in failure currently; continue B-blockers/ARB per cardio; Status: Chronic (3) Hypertension Status: Chronic
[2018-07-29 23:09] LABS: FOLATE > 20.0 ng/mL
[2018-07-30] MEDS: Albuterol-Ipratrop 3 mg / 0.5 (3 ml) UD INH SCH ×6 (00:09→19:23)
[2018-07-30] MEDS: Acetylcysteine 20% Inhal Soln (4ml) INH SCH ×2 (08:10→19:23)
[2018-07-30] MEDS: Budesonide 0.25 mg/2 ml Inhal Susp UD INH SCH ×2 (08:10→19:23)
[2018-07-30] MEDS: Pantoprazole 40 mg EC Tab PO SCH (08:55)
[2018-07-30] MEDS: guaiFENesin-DM 600-30 mg ER Tab PO SCH ×2 (08:55→16:47)
[2018-07-30] MEDS: Aspirin 325 mg EC Tablets PO SCH (08:59)
[2018-07-30] MEDS: MethylPREDNISolone 40 mg Vial IVP SCH ×2 (08:59→21:26)
[2018-07-30] MEDS: Multivitamin With Minerals Tab PO SCH (09:00)
[2018-07-30] MEDS: Metoprolol Succinate 25 mg XL Tab PO SCH (09:00)
[2018-07-30] MEDS: Azithromycin 500 MG in Sodium Chloride 0.9% 250 ML IVPB SCH (09:11)
--- NOTE | 2018-07-30 09:27 | CP.PCM.PN ---
Subjective - Date & Time of Evaluation Date of Evaluation: 07/30/18 Time of Evaluation: 09:27 - Subjective Subjective: OOB TO CHAIR TOLERATING BREAKFAST SOB IMPROVING NO CHEST PAINS Objective - Vital Signs/Intake and Output Vital Signs (last 24 hours): Temp Pulse Resp BP Pulse Ox 97.9 F 73 20 128/72 98 07/30/18 08:28 07/30/18 09:00 07/30/18 08:28 07/30/18 09:00 07/30/18 08:28 - Medications Medications: Current Medications Acetaminophen (Tylenol 325mg Tab) 650 mg PO Q6 PRN PRN Reason: Headache Last Admin: 07/23/18 22:24 Dose: 650 mg Acetylcysteine (Acetylcysteine 20%) 2 ml INH RBID [facility] Last Admin: 07/30/18 08:10 Dose: 2 ml Albuterol/Ipratropium (Duoneb 3 Mg/0.5 Mg (3 Ml) Ud) 3 ml INH RQ4 [facility] Last Admin: 07/30/18 08:10 Dose: 3 ml Alprazolam (Xanax) 0.5 mg PO Q8 PRN PRN Reason: Anxiety Last Admin: 07/30/18 09:10 Dose: 0.5 mg Aspirin (Ecotrin) 325 mg PO DAILY [facility] Last Admin: 07/30/18 08:59 Dose: 325 mg Atorvastatin Calcium (Lipitor) 20 mg PO DAILY [facility] Last Admin: 07/30/18 08:55 Dose: 20 mg Budesonide (Pulmicort Respules) 0.25 mg INH RBID [facility] Last Admin: 07/30/18 08:10 Dose: 0.25 mg Clopidogrel Bisulfate (Plavix) 75 mg PO DAILY [facility] Last Admin: 07/30/18 08:59 Dose: 75 mg Cyanocobalamin (Vitamin B12 1000 Mcg/Ml Inj) 1,000 mcg IM Q14D [facility] Last Admin: 07/23/18 10:17 Dose: 1,000 mcg Ergocalciferol (Drisdol 50,000 Intl Units Cap) 1 cap PO MO [facility] Last Admin: 07/27/18 08:20 Dose: 1 cap Fluconazole (Diflucan) 100 mg PO DAILY [facility]; Protocol Last Admin: 07/30/18 08:55 Dose: 100 mg Fluticasone Propionate (Flonase) 2 spr PRATIBHA HS PRN PRN Reason: Allergy symptoms Last Admin: 07/27/18 01:35 Dose: 2 spr Furosemide (Lasix) 20 mg PO Q48H [facility] Guaifenesin/Dextromethorphan (Mucinex-Dm 600-30 Mg) 1 tab PO BID [facility] Last Admin: 07/30/18 08:55 Dose: 1 tab Home Med (Patient's Own Medication) 5 unit MT TID [facility] Last Admin: 07/30/18 08:59 Dose: 5 unit Hydromorphone HCl (Dilaudid) 0.5 mg IVP Q4 PRN PRN Reason: Pain, severe (8-10) Azithromycin 500 mg/ Sodium (Chloride) 250 mls @ 250 mls/hr IVPB DAILY [facility]; Protocol Last Admin: 07/30/18 09:11 Dose: 250 mls/hr Ceftriaxone Sodium 1 gm/ (Sodium Chloride) 100 mls @ 100 mls/hr IVPB DAILY [facility]; Protocol Last Admin: 07/30/18 09:10 Dose: 100 mls/hr Isosorbide Mononitrate (Imdur Er) 30 mg PO DAILY [facility] Last Admin: 07/30/18 08:58 Dose: 30 mg Losartan Potassium (Cozaar) 25 mg PO DAILY [facility] Last Admin: 07/30/18 08:54 Dose: 25 mg Methylprednisolone (Solu-Medrol) 40 mg IVP Q12 [facility] Last Admin: 07/30/18 08:59 Dose: 40 mg Metoprolol Succinate (Toprol Xl) 25 mg PO DAILY [facility] Last Admin: 07/30/18 09:00 Dose: 25 mg Multivitamins/Minerals (Therapeutic-M Tab) 1 tab PO DAILY [facility] Last Admin: 07/30/18 09:00 Dose: 1 tab Nicotine (Nicoderm Cq) 1 patch TD DAILY [facility] Last Admin: 07/30/18 08:58 Dose: 1 patch Nitroglycerin (Nitrostat Sl Tab) 0.4 mg SL DAILY PRN PRN Reason: chest pain Octreotide Acetate (Sandostatin) 100 mcg SC Q12 [facility] Last Admin: 07/30/18 09:20 Dose: 100 mcg Pantoprazole Sodium (Protonix Ec Tab) 40 mg PO DAILY [facility] Last Admin: 07/30/18 08:55 Dose: 40 mg Promethazine HCl/Dextromethorphan (Phenergan Dm Syrup) 10 ml PO Q6 PRN PRN Reason: Cough Last Admin: 07/29/18 23:14 Dose: 10 ml Sodium Chloride (Sodium Chloride Tab) 1 gm PO BID [facility] Last Admin: 07/30/18 09:18 Dose: 1 gm Trazodone HCl (Desyrel) 100 mg PO HS [facility] Last Admin: 07/29/18 21:13 Dose: 100 mg Zolpidem Tartrate (Ambien) 5 mg PO HS PRN PRN Reason: Sleep Last Admin: 07/29/18 23:13 Dose: 5 mg - Labs Labs: 07/29/18 13:30 07/29/18 13:30 PT 11.1 Seconds (9.8-13.1) 07/29/18 13:30 INR 1.0 07/29/18 13:30 APTT 25.0 Seconds (25.6-37.1) L 07/29/18 13:30 - Constitutional Appears: Chronically Ill - Head Exam Head Exam: ATRAUMATIC, NORMAL INSPECTION, NORMOCEPHALIC - Eye Exam Eye Exam: EOMI, Normal appearance, PERRL Pupil Exam: NORMAL ACCOMODATION, PERRL - ENT Exam ENT Exam: Mucous Membranes Moist, Normal Exam - Neck Exam Neck Exam: Full ROM, Normal Inspection. absent: Lymphadenopathy - Respiratory Exam Respiratory Exam: Prolonged Expiratory Phase, Rales, NORMAL BREATHING PATTERN - Cardiovascular Exam Cardiovascular Exam: REGULAR RHYTHM, +S1, +S2. absent: Murmur - GI/Abdominal Exam GI & Abdominal Exam: Soft, Normal Bowel Sounds. absent: Tenderness - Rectal Exam Rectal Exam: NORMAL INSPECTION - Extremities Exam Extremities Exam: Full ROM, Normal Capillary Refill, Normal Inspection. absent: Joint Swelling, Pedal Edema - Back Exam Back Exam: NORMAL INSPECTION - Neurological Exam Neurological Exam: Alert, Awake, CN II-XII Intact, Normal Gait, Oriented x3 - Psychiatric Exam Psychiatric exam: Normal Affect, Normal Mood - Skin Skin Exam: Dry, Intact, Normal Color, Warm Assessment and Plan - Assessment and Plan (Free Text) Assessment: COPD EXAC S/P [place] Plan: CONTINUE CURRENT RX
--- NOTE | 2018-07-30 10:44 | CP.PCM.PN ---
Subjective - Date & Time of Evaluation Date of Evaluation: 07/30/18 Time of Evaluation: 08:30 - Subjective Subjective: STILL SOB AND COUGHING BUT IMPROVING NO CHEST PAIN FEELS VERY WEAK Objective - Vital Signs/Intake and Output Vital Signs (last 24 hours): Temp Pulse Resp BP Pulse Ox 97.9 F 73 20 128/72 98 07/30/18 08:28 07/30/18 09:00 07/30/18 08:28 07/30/18 09:00 07/30/18 08:28 - Medications Medications: Current Medications Acetaminophen (Tylenol 325mg Tab) 650 mg PO Q6 PRN PRN Reason: Headache Last Admin: 07/23/18 22:24 Dose: 650 mg Acetylcysteine (Acetylcysteine 20%) 2 ml INH RBID [facility] Last Admin: 07/30/18 08:10 Dose: 2 ml Albuterol/Ipratropium (Duoneb 3 Mg/0.5 Mg (3 Ml) Ud) 3 ml INH RQ4 [facility] Last Admin: 07/30/18 08:10 Dose: 3 ml Alprazolam (Xanax) 0.5 mg PO Q8 PRN PRN Reason: Anxiety Last Admin: 07/30/18 09:10 Dose: 0.5 mg Aspirin (Ecotrin) 325 mg PO DAILY [facility] Last Admin: 07/30/18 08:59 Dose: 325 mg Atorvastatin Calcium (Lipitor) 20 mg PO DAILY [facility] Last Admin: 07/30/18 08:55 Dose: 20 mg Budesonide (Pulmicort Respules) 0.25 mg INH RBID [facility] Last Admin: 07/30/18 08:10 Dose: 0.25 mg Clopidogrel Bisulfate (Plavix) 75 mg PO DAILY [facility] Last Admin: 07/30/18 08:59 Dose: 75 mg Cyanocobalamin (Vitamin B12 1000 Mcg/Ml Inj) 1,000 mcg IM Q14D [facility] Last Admin: 07/23/18 10:17 Dose: 1,000 mcg Ergocalciferol (Drisdol 50,000 Intl Units Cap) 1 cap PO MO [facility] Last Admin: 07/27/18 08:20 Dose: 1 cap Fluconazole (Diflucan) 100 mg PO DAILY [facility]; Protocol Last Admin: 07/30/18 08:55 Dose: 100 mg Fluticasone Propionate (Flonase) 2 spr PRATIBHA HS PRN PRN Reason: Allergy symptoms Last Admin: 07/27/18 01:35 Dose: 2 spr Furosemide (Lasix) 20 mg PO Q48H [facility] Guaifenesin/Dextromethorphan (Mucinex-Dm 600-30 Mg) 1 tab PO BID [facility] Last Admin: 07/30/18 08:55 Dose: 1 tab Home Med (Patient's Own Medication) 5 unit MT TID [facility] Last Admin: 07/30/18 08:59 Dose: 5 unit Hydromorphone HCl (Dilaudid) 0.5 mg IVP Q4 PRN PRN Reason: Pain, severe (8-10) Azithromycin 500 mg/ Sodium (Chloride) 250 mls @ 250 mls/hr IVPB DAILY [facility]; Protocol Last Admin: 07/30/18 09:11 Dose: 250 mls/hr Ceftriaxone Sodium 1 gm/ (Sodium Chloride) 100 mls @ 100 mls/hr IVPB DAILY [facility]; Protocol Last Admin: 07/30/18 09:10 Dose: 100 mls/hr Isosorbide Mononitrate (Imdur Er) 30 mg PO DAILY [facility] Last Admin: 07/30/18 08:58 Dose: 30 mg Losartan Potassium (Cozaar) 25 mg PO DAILY [facility] Last Admin: 07/30/18 08:54 Dose: 25 mg Methylprednisolone (Solu-Medrol) 40 mg IVP Q12 [facility] Last Admin: 07/30/18 08:59 Dose: 40 mg Metoprolol Succinate (Toprol Xl) 25 mg PO DAILY [facility] Last Admin: 07/30/18 09:00 Dose: 25 mg Multivitamins/Minerals (Therapeutic-M Tab) 1 tab PO DAILY [facility] Last Admin: 07/30/18 09:00 Dose: 1 tab Nicotine (Nicoderm Cq) 1 patch TD DAILY [facility] Last Admin: 07/30/18 08:58 Dose: 1 patch Nitroglycerin (Nitrostat Sl Tab) 0.4 mg SL DAILY PRN PRN Reason: chest pain Octreotide Acetate (Sandostatin) 100 mcg SC Q12 [facility] Last Admin: 07/30/18 09:20 Dose: 100 mcg Pantoprazole Sodium (Protonix Ec Tab) 40 mg PO DAILY [facility] Last Admin: 07/30/18 08:55 Dose: 40 mg Promethazine HCl/Dextromethorphan (Phenergan Dm Syrup) 10 ml PO Q6 PRN PRN Reason: Cough Last Admin: 07/29/18 23:14 Dose: 10 ml Sodium Chloride (Sodium Chloride Tab) 1 gm PO BID [facility] Last Admin: 07/30/18 09:18 Dose: 1 gm Trazodone HCl (Desyrel) 100 mg PO HS [facility] Last Admin: 07/29/18 21:13 Dose: 100 mg Zolpidem Tartrate (Ambien) 5 mg PO HS PRN PRN Reason: Sleep Last Admin: 07/29/18 23:13 Dose: 5 mg - Labs Labs: 07/29/18 13:30 07/29/18 13:30 PT 11.1 Seconds (9.8-13.1) 07/29/18 13:30 INR 1.0 07/29/18 13:30 APTT 25.0 Seconds (25.6-37.1) L 07/29/18 13:30 - Respiratory Exam Additional comments: COARSE BREATH SOUNDS BUT BETTER - Cardiovascular Exam Cardiovascular Exam: REGULAR RHYTHM, +S1, +S2 - Extremities Exam Additional comments: NO LE EDEMA OR CALF TENDERNESS Assessment and Plan - Assessment and Plan (Free Text) Assessment: RECENT ACUTE EXTENSION OF AWMI-ATBLE AND CHEST PAIN FREE COPD EXACERBATION AND INFLUENZA HYPERTENSION Plan: CONTINUE ASPIRIN, CLOPIDOGREL, METOPROLOL, LOSARTAN, NITRATES, COPD MEDS, ANTOBIOTICS
--- NOTE | 2018-07-30 20:02 | CP.PCM.PN ---
Subjective - Date & Time of Evaluation Date of Evaluation: 07/30/18 Time of Evaluation: 13:00 - Subjective Subjective: Patient breathing better; not emptying out ostomy as much, says its related to the type of foods she eats; Objective - Vital Signs/Intake and Output Vital Signs (last 24 hours): Temp Pulse Resp BP Pulse Ox 97.7 F 80 20 138/72 97 07/30/18 19:58 07/30/18 19:58 07/30/18 19:58 07/30/18 19:58 07/30/18 19:58 - Medications Medications: Current Medications Acetaminophen (Tylenol 325mg Tab) 650 mg PO Q6 PRN PRN Reason: Headache Last Admin: 07/23/18 22:24 Dose: 650 mg Acetylcysteine (Acetylcysteine 20%) 2 ml INH RBID [facility] Last Admin: 07/30/18 19:23 Dose: 2 ml Albuterol/Ipratropium (Duoneb 3 Mg/0.5 Mg (3 Ml) Ud) 3 ml INH RQ4 [facility] Last Admin: 07/30/18 19:23 Dose: 3 ml Alprazolam (Xanax) 0.5 mg PO Q8 PRN PRN Reason: Anxiety Last Admin: 07/30/18 16:46 Dose: 0.5 mg Aspirin (Ecotrin) 325 mg PO DAILY [facility] Last Admin: 07/30/18 08:59 Dose: 325 mg Atorvastatin Calcium (Lipitor) 20 mg PO DAILY [facility] Last Admin: 07/30/18 08:55 Dose: 20 mg Budesonide (Pulmicort Respules) 0.25 mg INH RBID [facility] Last Admin: 07/30/18 19:23 Dose: 0.25 mg Clopidogrel Bisulfate (Plavix) 75 mg PO DAILY [facility] Last Admin: 07/30/18 08:59 Dose: 75 mg Cyanocobalamin (Vitamin B12 1000 Mcg/Ml Inj) 1,000 mcg IM Q14D [facility] Last Admin: 07/23/18 10:17 Dose: 1,000 mcg Ergocalciferol (Drisdol 50,000 Intl Units Cap) 1 cap PO MO [facility] Last Admin: 07/27/18 08:20 Dose: 1 cap Fluconazole (Diflucan) 100 mg PO DAILY [facility]; Protocol Last Admin: 07/30/18 08:55 Dose: 100 mg Fluticasone Propionate (Flonase) 2 spr PRATIBHA HS PRN PRN Reason: Allergy symptoms Last Admin: 07/27/18 01:35 Dose: 2 spr Furosemide (Lasix) 20 mg PO Q48H [facility] Guaifenesin/Dextromethorphan (Mucinex-Dm 600-30 Mg) 1 tab PO BID [facility] Last Admin: 07/30/18 16:47 Dose: 1 tab Home Med (Patient's Own Medication) 5 unit MT TID [facility] Last Admin: 07/30/18 16:47 Dose: 5 unit Hydromorphone HCl (Dilaudid) 0.5 mg IVP Q4 PRN PRN Reason: Pain, severe (8-10) Azithromycin 500 mg/ Sodium (Chloride) 250 mls @ 250 mls/hr IVPB DAILY [facility]; Protocol Last Admin: 07/30/18 09:11 Dose: 250 mls/hr Ceftriaxone Sodium 1 gm/ (Sodium Chloride) 100 mls @ 100 mls/hr IVPB DAILY [facility]; Protocol Last Admin: 07/30/18 09:10 Dose: 100 mls/hr Isosorbide Mononitrate (Imdur Er) 30 mg PO DAILY [facility] Last Admin: 07/30/18 08:58 Dose: 30 mg Losartan Potassium (Cozaar) 25 mg PO DAILY [facility] Last Admin: 07/30/18 08:54 Dose: 25 mg Methylprednisolone (Solu-Medrol) 40 mg IVP Q12 [facility] Last Admin: 07/30/18 08:59 Dose: 40 mg Metoprolol Succinate (Toprol Xl) 25 mg PO DAILY [facility] Last Admin: 07/30/18 09:00 Dose: 25 mg Multivitamins/Minerals (Therapeutic-M Tab) 1 tab PO DAILY [facility] Last Admin: 07/30/18 09:00 Dose: 1 tab Nicotine (Nicoderm Cq) 1 patch TD DAILY [facility] Last Admin: 07/30/18 08:58 Dose: 1 patch Nitroglycerin (Nitrostat Sl Tab) 0.4 mg SL DAILY PRN PRN Reason: chest pain Octreotide Acetate (Sandostatin) 100 mcg SC Q12 [facility] Last Admin: 07/30/18 09:20 Dose: 100 mcg Promethazine HCl/Dextromethorphan (Phenergan Dm Syrup) 10 ml PO Q6 PRN PRN Reason: Cough Last Admin: 01/23/19 23:14 Dose: 10 ml Sodium Chloride (Sodium Chloride Tab) 1 gm PO BID [facility] Last Admin: 07/30/18 16:47 Dose: 1 gm Trazodone HCl (Desyrel) 100 mg PO HS [facility] Last Admin: 07/29/18 21:13 Dose: 100 mg Zolpidem Tartrate (Ambien) 5 mg PO HS PRN PRN Reason: Sleep Last Admin: 07/29/18 23:13 Dose: 5 mg - Labs Labs: 07/29/18 13:30 07/29/18 13:30 PT 11.1 Seconds (9.8-13.1) 07/29/18 13:30 INR 1.0 07/29/18 13:30 APTT 25.0 Seconds (25.6-37.1) L 07/29/18 13:30 - Constitutional Appears: Non-toxic, No Acute Distress - Eye Exam Eye Exam: Normal appearance - Respiratory Exam Respiratory Exam: Clear to Ausculation Bilateral. absent: Respiratory Distress - Cardiovascular Exam Cardiovascular Exam: RRR, +S1, +S2 - GI/Abdominal Exam GI & Abdominal Exam: Soft. absent: Distended - Extremities Exam Additional comments: no significant leg edema; - Neurological Exam Neurological Exam: Alert, Awake - Psychiatric Exam Psychiatric exam: Normal Mood. absent: Agitated - Skin Skin Exam: Warm. absent: Cyanosis Assessment and Plan (1) Hyponatremia Assessment & Plan: Improved but mildly persistent; patient insists on decreasing her med regimen as much as possible, insists she doesn't want lasix (even low dose every other day to help counter hyponatremia); -keeping on salt tabs 1 g bid; -need to avoid volume depletion, maintain increased sodium diet due to tendency for hypovolemia from ostomy losses; -counseled on need for moderate PO fluid restriction; Status: Acute (2) Chronic congestive heart failure Assessment & Plan: Currently not in failure; continue B-blockers/ARB per cardio; Status: Chronic (3) Hypertension Status: Chronic
--- NOTE | 2018-07-30 21:57 | CP.PCM.PN ---
Subjective - Date & Time of Evaluation Date of Evaluation: 07/30/18 Time of Evaluation: 16:40 Objective - Vital Signs/Intake and Output Vital Signs (last 24 hours): Temp Pulse Resp BP Pulse Ox 97.7 F 80 20 138/72 97 07/30/18 19:58 07/30/18 19:58 07/30/18 19:58 07/30/18 19:58 07/30/18 19:58 - Medications Medications: Current Medications Acetaminophen (Tylenol 325mg Tab) 650 mg PO Q6 PRN PRN Reason: Headache Last Admin: 07/23/18 22:24 Dose: 650 mg Acetylcysteine (Acetylcysteine 20%) 2 ml INH RBID [facility] Last Admin: 07/30/18 19:23 Dose: 2 ml Albuterol/Ipratropium (Duoneb 3 Mg/0.5 Mg (3 Ml) Ud) 3 ml INH RQ4 [facility] Last Admin: 07/30/18 19:23 Dose: 3 ml Alprazolam (Xanax) 0.5 mg PO Q8 PRN PRN Reason: Anxiety Last Admin: 07/30/18 16:46 Dose: 0.5 mg Aspirin (Ecotrin) 325 mg PO DAILY [facility] Last Admin: 07/30/18 08:59 Dose: 325 mg Atorvastatin Calcium (Lipitor) 20 mg PO DAILY [facility] Last Admin: 07/30/18 08:55 Dose: 20 mg Budesonide (Pulmicort Respules) 0.25 mg INH RBID [facility] Last Admin: 07/30/18 19:23 Dose: 0.25 mg Clopidogrel Bisulfate (Plavix) 75 mg PO DAILY [facility] Last Admin: 07/30/18 08:59 Dose: 75 mg Cyanocobalamin (Vitamin B12 1000 Mcg/Ml Inj) 1,000 mcg IM Q14D [facility] Last Admin: 07/23/18 10:17 Dose: 1,000 mcg Ergocalciferol (Drisdol 50,000 Intl Units Cap) 1 cap PO MO [facility] Last Admin: 07/27/18 08:20 Dose: 1 cap Fluconazole (Diflucan) 100 mg PO DAILY [facility]; Protocol Last Admin: 07/30/18 08:55 Dose: 100 mg Fluticasone Propionate (Flonase) 2 spr PRATIBHA HS PRN PRN Reason: Allergy symptoms Last Admin: 07/27/18 01:35 Dose: 2 spr Guaifenesin/Dextromethorphan (Mucinex-Dm 600-30 Mg) 1 tab PO BID [facility] Last Admin: 07/30/18 16:47 Dose: 1 tab Home Med (Patient's Own Medication) 5 unit MT TID [facility] Last Admin: 07/30/18 16:47 Dose: 5 unit Hydromorphone HCl (Dilaudid) 0.5 mg IVP Q4 PRN PRN Reason: Pain, severe (8-10) Azithromycin 500 mg/ Sodium (Chloride) 250 mls @ 250 mls/hr IVPB DAILY [facility]; Protocol Last Admin: 07/30/18 09:11 Dose: 250 mls/hr Ceftriaxone Sodium 1 gm/ (Sodium Chloride) 100 mls @ 100 mls/hr IVPB DAILY [facility]; Protocol Last Admin: 07/30/18 09:10 Dose: 100 mls/hr Isosorbide Mononitrate (Imdur Er) 30 mg PO DAILY [facility] Last Admin: 07/30/18 08:58 Dose: 30 mg Losartan Potassium (Cozaar) 25 mg PO DAILY [facility] Last Admin: 07/30/18 08:54 Dose: 25 mg Methylprednisolone (Solu-Medrol) 40 mg IVP Q12 [facility] Last Admin: 07/30/18 21:26 Dose: 40 mg Metoprolol Succinate (Toprol Xl) 25 mg PO DAILY [facility] Last Admin: 07/30/18 09:00 Dose: 25 mg Multivitamins/Minerals (Therapeutic-M Tab) 1 tab PO DAILY [facility] Last Admin: 07/30/18 09:00 Dose: 1 tab Nicotine (Nicoderm Cq) 1 patch TD DAILY [facility] Last Admin: 07/30/18 08:58 Dose: 1 patch Nitroglycerin (Nitrostat Sl Tab) 0.4 mg SL DAILY PRN PRN Reason: chest pain Octreotide Acetate (Sandostatin) 100 mcg SC Q12 [facility] Last Admin: 07/30/18 21:27 Dose: 100 mcg Promethazine HCl/Dextromethorphan (Phenergan Dm Syrup) 10 ml PO Q6 PRN PRN Reason: Cough Last Admin: 07/29/18 23:14 Dose: 10 ml Sodium Chloride (Sodium Chloride Tab) 1 gm PO BID [facility] Last Admin: 07/30/18 16:47 Dose: 1 gm Trazodone HCl (Desyrel) 100 mg PO HS [facility] Last Admin: 07/30/18 21:26 Dose: 100 mg - Labs Labs: 07/29/18 13:30 07/29/18 13:30 PT 11.1 Seconds (9.8-13.1) 07/29/18 13:30 INR 1.0 07/29/18 13:30 APTT 25.0 Seconds (25.6-37.1) L 07/29/18 13:30 Assessment and Plan (1) Influenza A H1N1 infection Status: Acute (2) COPD exacerbation Status: Acute (3) NSTEMI (non-ST elevated myocardial infarction) Status: Acute (4) Hyponatremia Status: Acute (5) Chronic congestive heart failure Status: Chronic (6) Anxiety disorder Status: Acute (7) Hypertension Status: Chronic (8) Anemia Status: Acute
--- NOTE | 2018-07-30 22:13 | CP.PCM.PN ---
Subjective - Date & Time of Evaluation Date of Evaluation: 07/30/18 Time of Evaluation: 18:00 - Subjective Subjective: Breathing better Objective - Vital Signs/Intake and Output Vital Signs (last 24 hours): Temp Pulse Resp BP Pulse Ox 97.7 F 80 20 138/72 97 07/30/18 19:58 07/30/18 19:58 07/30/18 19:58 07/30/18 19:58 07/30/18 19:58 - Medications Medications: Current Medications Acetaminophen (Tylenol 325mg Tab) 650 mg PO Q6 PRN PRN Reason: Headache Last Admin: 07/23/18 22:24 Dose: 650 mg Acetylcysteine (Acetylcysteine 20%) 2 ml INH RBID [facility] Last Admin: 07/30/18 19:23 Dose: 2 ml Albuterol/Ipratropium (Duoneb 3 Mg/0.5 Mg (3 Ml) Ud) 3 ml INH RQ4 [facility] Last Admin: 07/30/18 19:23 Dose: 3 ml Alprazolam (Xanax) 0.5 mg PO Q8 PRN PRN Reason: Anxiety Last Admin: 07/30/18 16:46 Dose: 0.5 mg Aspirin (Ecotrin) 325 mg PO DAILY [facility] Last Admin: 07/30/18 08:59 Dose: 325 mg Atorvastatin Calcium (Lipitor) 20 mg PO DAILY [facility] Last Admin: 07/30/18 08:55 Dose: 20 mg Budesonide (Pulmicort Respules) 0.25 mg INH RBID [facility] Last Admin: 07/30/18 19:23 Dose: 0.25 mg Clopidogrel Bisulfate (Plavix) 75 mg PO DAILY [facility] Last Admin: 07/30/18 08:59 Dose: 75 mg Cyanocobalamin (Vitamin B12 1000 Mcg/Ml Inj) 1,000 mcg IM Q14D [facility] Last Admin: 07/23/18 10:17 Dose: 1,000 mcg Ergocalciferol (Drisdol 50,000 Intl Units Cap) 1 cap PO MO [facility] Last Admin: 07/27/18 08:20 Dose: 1 cap Fluconazole (Diflucan) 100 mg PO DAILY [facility]; Protocol Last Admin: 07/30/18 08:55 Dose: 100 mg Fluticasone Propionate (Flonase) 2 spr PRATIBHA HS PRN PRN Reason: Allergy symptoms Last Admin: 07/27/18 01:35 Dose: 2 spr Guaifenesin/Dextromethorphan (Mucinex-Dm 600-30 Mg) 1 tab PO BID [facility] Last Admin: 07/30/18 16:47 Dose: 1 tab Home Med (Patient's Own Medication) 5 unit MT TID [facility] Last Admin: 07/30/18 16:47 Dose: 5 unit Hydromorphone HCl (Dilaudid) 0.5 mg IVP Q4 PRN PRN Reason: Pain, severe (8-10) Azithromycin 500 mg/ Sodium (Chloride) 250 mls @ 250 mls/hr IVPB DAILY [facility]; Protocol Last Admin: 07/30/18 09:11 Dose: 250 mls/hr Ceftriaxone Sodium 1 gm/ (Sodium Chloride) 100 mls @ 100 mls/hr IVPB DAILY [facility]; Protocol Last Admin: 07/30/18 09:10 Dose: 100 mls/hr Isosorbide Mononitrate (Imdur Er) 30 mg PO DAILY [facility] Last Admin: 07/30/18 08:58 Dose: 30 mg Losartan Potassium (Cozaar) 25 mg PO DAILY [facility] Last Admin: 07/30/18 08:54 Dose: 25 mg Methylprednisolone (Solu-Medrol) 40 mg IVP Q12 [facility] Last Admin: 07/30/18 21:26 Dose: 40 mg Metoprolol Succinate (Toprol Xl) 25 mg PO DAILY [facility] Last Admin: 07/30/18 09:00 Dose: 25 mg Multivitamins/Minerals (Therapeutic-M Tab) 1 tab PO DAILY [facility] Last Admin: 07/30/18 09:00 Dose: 1 tab Nicotine (Nicoderm Cq) 1 patch TD DAILY [facility] Last Admin: 07/30/18 08:58 Dose: 1 patch Nitroglycerin (Nitrostat Sl Tab) 0.4 mg SL DAILY PRN PRN Reason: chest pain Octreotide Acetate (Sandostatin) 100 mcg SC Q12 [facility] Last Admin: 07/30/18 21:27 Dose: 100 mcg Promethazine HCl/Dextromethorphan (Phenergan Dm Syrup) 10 ml PO Q6 PRN PRN Reason: Cough Last Admin: 07/29/18 23:14 Dose: 10 ml Sodium Chloride (Sodium Chloride Tab) 1 gm PO BID [facility] Last Admin: 07/30/18 16:47 Dose: 1 gm Trazodone HCl (Desyrel) 100 mg PO HS [facility] Last Admin: 07/30/18 21:26 Dose: 100 mg - Labs Labs: 07/29/18 13:30 07/29/18 13:30 PT 11.1 Seconds (9.8-13.1) 07/29/18 13:30 INR 1.0 07/29/18 13:30 APTT 25.0 Seconds (25.6-37.1) L 07/29/18 13:30 - Head Exam Head Exam: ATRAUMATIC - Eye Exam Eye Exam: Normal appearance - ENT Exam ENT Exam: Mucous Membranes Dry - Respiratory Exam Respiratory Exam: Decreased Breath Sounds - Cardiovascular Exam Cardiovascular Exam: +S1, +S2 - GI/Abdominal Exam GI & Abdominal Exam: Normal Bowel Sounds Assessment and Plan (1) Hematoma Assessment & Plan: exacerbated by antiplatelets and lovenox agree with holding lovenox Status: Acute (2) Anemia Assessment & Plan: chronic disease and hematoma Status: Acute (3) Leukocytosis Assessment & Plan: on antibiotics Status: Acute
[2018-07-30] MEDS: Promethazine DM 12.5 mg-30 mg/10 ml Syrup PO PRN (23:29)
[2018-07-31] MEDS: Albuterol-Ipratrop 3 mg / 0.5 (3 ml) UD INH SCH ×6 (00:31→19:19)
[2018-07-31 05:46] LABS: BLOOD UREA NITROGEN 27 mg/dl (7-17); CALCIUM 9.3 mg/dL (8.4-10.2); GFR NON-AFRICAN AMERICAN > 60
[2018-07-31 05:54] LABS: MEAN CELL VOLUME 96.5 fl (81.0-99.0); MEAN CORPUSCULAR HEMOGLOBIN 32.7 pg (27.0-31.0); MEAN CORPUSCULAR HGB CONC 33.9 g/dL (33.0-37.0); RBC 3.35 Mil/uL (3.80-5.20); RED CELL DISTRIBUTION WIDTH 15.5 % (11.5-14.5); WHITE BLOOD COUNT 17.9 K/uL (4.8-10.8)
[2018-07-31] MEDS: Budesonide 0.25 mg/2 ml Inhal Susp UD INH SCH ×2 (08:08→19:30)
[2018-07-31] MEDS: Acetylcysteine 20% Inhal Soln (4ml) INH SCH ×2 (08:08→19:18)
[2018-07-31] MEDS: Azithromycin 500 MG in Sodium Chloride 0.9% 250 ML IVPB SCH (08:57)
[2018-07-31] MEDS: MethylPREDNISolone 40 mg Vial IVP SCH ×3 (08:58→21:38)
[2018-07-31] MEDS: guaiFENesin-DM 600-30 mg ER Tab PO SCH ×2 (08:59→16:49)
[2018-07-31] MEDS: Multivitamin With Minerals Tab PO SCH (08:59)
[2018-07-31] MEDS: Metoprolol Succinate 25 mg XL Tab PO SCH (08:59)
[2018-07-31] MEDS: Aspirin 325 mg EC Tablets PO SCH (09:01)
[2018-07-31] MEDS: Promethazine DM 12.5 mg-30 mg/10 ml Syrup PO PRN (09:12)
--- NOTE | 2018-07-31 12:27 | CP.PCM.PN ---
Subjective - Date & Time of Evaluation Date of Evaluation: 07/31/18 Time of Evaluation: 11:30 - Subjective Subjective: NO CHEST PAIN BREATHING A LITTLE BETTER FEELS VERY TIRED Objective - Vital Signs/Intake and Output Vital Signs (last 24 hours): Temp Pulse Resp BP Pulse Ox 97.6 F 63 18 126/68 94 L 07/31/18 08:03 07/31/18 09:01 07/31/18 08:03 07/31/18 09:01 07/31/18 08:03 - Medications Medications: Current Medications Acetaminophen (Tylenol 325mg Tab) 650 mg PO Q6 PRN PRN Reason: Headache Last Admin: 07/23/18 22:24 Dose: 650 mg Acetylcysteine (Acetylcysteine 20%) 2 ml INH RBID [facility] Last Admin: 07/31/18 08:08 Dose: 2 ml Albuterol/Ipratropium (Duoneb 3 Mg/0.5 Mg (3 Ml) Ud) 3 ml INH RQ4 [facility] Last Admin: 07/31/18 11:52 Dose: 3 ml Alprazolam (Xanax) 0.5 mg PO Q8 PRN PRN Reason: Anxiety Last Admin: 07/31/18 04:56 Dose: 0.5 mg Aspirin (Ecotrin) 325 mg PO DAILY [facility] Last Admin: 07/31/18 09:01 Dose: 325 mg Atorvastatin Calcium (Lipitor) 20 mg PO DAILY [facility] Last Admin: 07/31/18 09:01 Dose: 20 mg Budesonide (Pulmicort Respules) 0.25 mg INH RBID [facility] Last Admin: 07/31/18 08:08 Dose: Not Given Clopidogrel Bisulfate (Plavix) 75 mg PO DAILY [facility] Last Admin: 07/31/18 08:59 Dose: 75 mg Cyanocobalamin (Vitamin B12 1000 Mcg/Ml Inj) 1,000 mcg IM Q14D [facility] Last Admin: 07/23/18 10:17 Dose: 1,000 mcg Ergocalciferol (Drisdol 50,000 Intl Units Cap) 1 cap PO MO [facility] Last Admin: 07/27/18 08:20 Dose: 1 cap Fluconazole (Diflucan) 100 mg PO DAILY [facility]; Protocol Last Admin: 07/31/18 09:02 Dose: 100 mg Fluticasone Propionate (Flonase) 2 spr PRATIBHA HS PRN PRN Reason: Allergy symptoms Last Admin: 07/27/18 01:35 Dose: 2 spr Guaifenesin/Dextromethorphan (Mucinex-Dm 600-30 Mg) 1 tab PO BID [facility] Last Admin: 07/31/18 08:59 Dose: 1 tab Home Med (Patient's Own Medication) 5 unit MT TID [facility] Last Admin: 07/31/18 08:57 Dose: 5 unit Hydromorphone HCl (Dilaudid) 0.5 mg IVP Q4 PRN PRN Reason: Pain, severe (8-10) Azithromycin 500 mg/ Sodium (Chloride) 250 mls @ 250 mls/hr IVPB DAILY [facility]; Protocol Last Admin: 07/31/18 08:57 Dose: 250 mls/hr Ceftriaxone Sodium 1 gm/ (Sodium Chloride) 100 mls @ 100 mls/hr IVPB DAILY [facility]; Protocol Last Admin: 07/31/18 08:56 Dose: 100 mls/hr Isosorbide Mononitrate (Imdur Er) 30 mg PO DAILY [facility] Last Admin: 07/31/18 09:01 Dose: 30 mg Losartan Potassium (Cozaar) 25 mg PO DAILY [facility] Last Admin: 07/31/18 09:01 Dose: 25 mg Methylprednisolone (Solu-Medrol) 30 mg IVP Q12 [facility] Metoprolol Succinate (Toprol Xl) 25 mg PO DAILY [facility] Last Admin: 07/31/18 08:59 Dose: 25 mg Multivitamins/Minerals (Therapeutic-M Tab) 1 tab PO DAILY [facility] Last Admin: 07/31/18 08:59 Dose: 1 tab Nicotine (Nicoderm Cq) 1 patch TD DAILY [facility] Last Admin: 07/31/18 08:58 Dose: 1 patch Nitroglycerin (Nitrostat Sl Tab) 0.4 mg SL DAILY PRN PRN Reason: chest pain Octreotide Acetate (Sandostatin) 100 mcg SC Q12 [facility] Last Admin: 07/31/18 09:11 Dose: 100 mcg Promethazine HCl/Dextromethorphan (Phenergan Dm Syrup) 10 ml PO Q6 PRN PRN Reason: Cough Last Admin: 07/31/18 09:12 Dose: 10 ml Sodium Chloride (Sodium Chloride Tab) 1 gm PO BID [facility] Last Admin: 07/31/18 08:58 Dose: 1 gm Trazodone HCl (Desyrel) 100 mg PO HS [facility] Last Admin: 07/30/18 21:26 Dose: 100 mg Zolpidem Tartrate (Ambien) 5 mg PO HS PRN PRN Reason: Insomnia Last Admin: 07/30/18 23:55 Dose: 5 mg - Labs Labs: 07/31/18 04:30 07/31/18 04:30 PT 11.1 Seconds (9.8-13.1) 07/29/18 13:30 INR 1.0 07/29/18 13:30 APTT 25.0 Seconds (25.6-37.1) L 07/29/18 13:30 - Respiratory Exam Additional comments: MUCH CLEARER - Cardiovascular Exam Cardiovascular Exam: REGULAR RHYTHM, +S1, +S2 - Extremities Exam Additional comments: NO LE EDEMA - Additional Findings 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
--- NOTE | 2018-07-31 13:10 | PQF ---
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 -- Other, please specify 07/23; 2nd. EKG: Normal sinus rhythm Left axis deviation Anteroseptal infarct, possibly acute T wave abnormality, consider lateral ischemia ACUTE IA / STEMI 07/23; 3rd. EKG:Sinus rhythm with premature atrial complexes Left axis deviation Anteroseptal infarct, possibly acute ACUTE IA / STEMI 07/23: Cardio consult: RESENTLY WITH NEW AND ACUTE ANTERIOR WALL ST ELEVATIONS AND ELEVATED 2ND TROPON IN C/W ACUTE AWMI H and P: dxs. include: NSTEMI The patient's Clinical Indicators include: ---- Query created by: Yoselin Jasmine on 07/29/2018 8:58 AM Electronically signed by: Ana Gonzales MD 07/31/2018 1:07 PM
--- NOTE | 2018-07-31 14:09 | CP.PCM.CON ---
History of Present Illness - History of Present Illness History of Present Illness: 68 year old female presenting with shortness of breath, NSTEMI, s/p lovenox injection complicated by abdominal hematoma. Referred for ID eval of pneumonia / COPD IV antibiotic in progress Past medical history: COPD, HTN, subclavian steal syndrome, CAD s/p PCI Past surgical history: Hysterectomy, cholecystectomy, ileostomy Family history: Brother had throat cancer - smoker Social history: +tobacco Allergies: Sulfa Review of Systems - Constitutional Constitutional: As Per HPI, Anorexia, Chills, Malaise - EENT Eyes: absent: As Per HPI, Blind Spots, Blurred Vision, Change in Vision, Decreased Night Vision, Diplopia, Discharge, Dry Eye, Exophthalmos, Floaters, Irritation, Itchy Eyes, Loss of Peripheral Vision, Pain, Photophobia, Requires Corrective Lenses, Sees Flashes, Spots in Vision, Tunnel Vision, Other Visual Disturbances, Loss of Vision, Other Ears: absent: As Per HPI, Decreased Hearing, Ear Discharge, Ear Pain, Tinnitus, Abnormal Hearing, Disequilibrium, Dizziness, Other Nose/Mouth/Throat: absent: As Per HPI, Epistaxis, Nasal Congestion, Nasal Disc harge, Nasal Obstruction, Nasal Trauma, Nose Pain, Post Nasal Drip, Sinus Pain, Sinus Pressure, Bleeding Gums, Change in Voice, Dental Pain, Dry Mouth, Dysphagia, Halitosis, Hoarsness, Lip Swelling, Mouth Lesions, Mouth Pain, Odynophagia, Sore Throat, Throat Swelling, Tongue Swelling, Facial Pain, Neck Pain, Neck Mass, Other - Breasts Breasts: absent: As Per HPI, Change in Shape, Mass, Pain, Nipple Discharge, Nipple Inversion, Skin Changes, Swelling, Other - Cardiovascular Cardiovascular: As Per HPI, Dyspnea on Exertion - Respiratory Respiratory: As Per HPI, Cough, Dyspnea. absent: Hemoptysis - Gastrointestinal Gastrointestinal: absent: As Per HPI, Abdominal Pain, Belching, Bloating, Change in Bowel Habits, Change in Stool Character, Coffee Ground Emesis, Constipation, Cramping, Diarrhea, Dyspepsia, Dysphagia, Early Satiety, Excessive Flatus, Fecal Incontinence, Heartburn, Hematemesis, Hematochezia, Loose Stools, Melena, Nausea, Odynophagia, Temesmus, Vomiting, Other - Genitourinary Genitourinary: absent: As Per HPI, Change in Urinary Stream, Difficulty Urinating, Dysuria, Flank Pain, Hematuria, Pyuria, Nocturia, Urinary Incontinence, Urinary Frequency, Urinary Hesitance, Urinary Urgency, Voiding Freq/Small Amts, Freq UTI, Hx Renal/Bladder Calculi, Hx /Renal Surgery, Bladder Distension, Other - Reproductive: Female Reproductive:Female: absent: As Per HPI, Amenorrhea, Amenorrhea/ Control, Currently Menstual, Cycle <21 Days, Cycle >35 Days, Cycle Variable, Menses 1-7 Days, Menses >/= 8 Days, Menses Variable, Cycle > 4 Weeks Between, No Menses for 6 Months, Heavy Menses, Light Menses, Normal Menses, Spotting Between Cycles, S/P Hysterectomy, Menopausal, Post Menopausal, Premenarche, Abnormal Vaginal Bleeding, Dysmenorrhea, Dyspareunia, Genital Lesions, Genital Pruritis, Pelvic Pain, Prolapse Symptoms, Sexual Dysfunction, Vaginal Discharge, Vaginal Dryness, Vaginal Odor, Vaginal Pruritis, Other - Menstruation Menstruation: absent: As Per HPI, Amenorrhea, Amenorrhea/ Control, Currentl y Menstual, Cycle <21 Days, Cycle >35 Days, Cycle Variable, Menses 1-7 Days, Menses >/= 8 Days, Menses Variable, Cycle > 4 Weeks Between, No Menses for 6 Months, Heavy Menses, Light Menses, Normal Menses, Spotting Between Cycles, S/P Hysterectomy, Menopausal, Post Menopausal, Premenarche, Abnormal Vaginal Bleeding, Dysmenorrhea, Other - Musculoskeletal Musculoskeletal: As Per HPI - Integumentary Integumentary: As Per HPI - Neurological Neurological: absent: As Per HPI, Abnormal Gait, Abnormal Hearing, Abnormal Movements, Abnormal Speech, Behavioral Changes, Burning Sensations, Confusion, Convulsions, Disequilibrium, Dizziness, Numbness, Focal Weakness, Frequent Falls, Headaches, Lack of Coordination, Loss of Vision, Memory Loss, Paresthesias, Radicular Pain, Restless Legs, Sensory Deficit, Syncope, Tingling, Tremor, Vertigo, Weakness, Other Visual Disturbances, Other - Psychiatric Psychiatric: absent: As Per HPI, Abnormal Sleep Pattern, Anhedonia, Anxiety, Auditory Hallucinations, Behavioral Changes, Change in Appetite, Change in Libido, Confusion, Depression, Difficulty Concentrating, Hallucinations, Homicidal Ideation, Hopelessness, Irritability, Memory Loss, Mood Swings, Panic Attacks, Paranoia, Suicidal Ideation, Visual Hallucinations, Tactile Hallucinations, Other - Endocrine Endocrine: absent: As Per HPI, Change in Body Appearance, Change in Libido, Cold Intolorance, Deepening of Voice, Excessive Sweating, Fatigue, Flushing, Heat Intolorance, Increase in Ring/Shoe/Hat Size, Palpitations, Polydipsia, Polyphagia, Polyuria, Other - Hematologic/Lymphatic Hematologic: absent: As Per HPI, Easy Bleeding, Easy Bruising, Lymphadenopathy, Other Past Patient History - Past Medical History & Family History Past Medical History?: Yes Past Family History: Reviewed and not pertinent - Past Social History Smoking Status: Light Smoker < 10 Cigarettes Daily Alcohol: Social Drugs: Denies - CARDIAC Hx Hypercholesterolemia: Yes Hx Hypertension: Yes - PULMONARY Hx Chronic Obstructive Pulmonary Disease (COPD): Yes Hx Emphysema: Yes - NEUROLOGICAL Hx Neurological Disorder: Yes Other/Comment: FIBROMYALGIA - HEENT Hx HEENT Problems: No - RENAL Hx Chronic Kidney Disease: No - ENDOCRINE/METABOLIC Hx Endocrine Disorders: No - HEMATOLOGICAL/ONCOLOGICAL Hx Anemia: Yes Hx Human Immunodeficiency Virus (HIV): No - INTEGUMENTARY Hx Dermatological Problems: No - MUSCULOSKELETAL/RHEUMATOLOGICAL Hx Musculoskeletal Disorders: No Hx Falls: Yes - GASTROINTESTINAL Hx Gastrointestinal Disorders: Yes Hx Ileostomy: Yes - GENITOURINARY/GYNECOLOGICAL Hx Genitourinary Disorders: No - PSYCHIATRIC Hx Anxiety: Yes Hx Depression: Yes - SURGICAL HISTORY Hx Cholecystectomy: Yes - ANESTHESIA Hx Anesthesia: Yes Hx Anesthesia Reactions: No Hx Malignant Hyperthermia: No Meds Allergies/Adverse Reactions: Allergies Allergy/AdvReac Type Severity Reaction Status Date / Time Sulfa (Sulfonamide Allergy crystallized Verified 09/15/17 12:38 Antibiotics) kidneys - Medications Medications: Current Medications Acetaminophen (Tylenol 325mg Tab) 650 mg PO Q6 PRN PRN Reason: Headache Last Admin: 07/23/18 22:24 Dose: 650 mg Acetylcysteine (Acetylcysteine 20%) 2 ml INH RBID [facility] Last Admin: 07/31/18 08:08 Dose: 2 ml Albuterol/Ipratropium (Duoneb 3 Mg/0.5 Mg (3 Ml) Ud) 3 ml INH RQ4 [facility] Last Admin: 07/31/18 11:52 Dose: 3 ml Alprazolam (Xanax) 0.5 mg PO Q8 PRN PRN Reason: Anxiety Last Admin: 07/31/18 04:56 Dose: 0.5 mg Aspirin (Ecotrin) 325 mg PO DAILY [facility] Last Admin: 07/31/18 09:01 Dose: 325 mg Atorvastatin Calcium (Lipitor) 20 mg PO DAILY [facility] Last Admin: 07/31/18 09:01 Dose: 20 mg Budesonide (Pulmicort Respules) 0.25 mg INH RBID [facility] Last Admin: 07/31/18 08:08 Dose: Not Given Clopidogrel Bisulfate (Plavix) 75 mg PO DAILY [facility] Last Admin: 07/31/18 08:59 Dose: 75 mg Cyanocobalamin (Vitamin B12 1000 Mcg/Ml Inj) 1,000 mcg IM Q14D [facility] Last Admin: 07/23/18 10:17 Dose: 1,000 mcg Ergocalciferol (Drisdol 50,000 Intl Units Cap) 1 cap PO MO [facility] Last Admin: 07/27/18 08:20 Dose: 1 cap Fluconazole (Diflucan) 100 mg PO DAILY [facility]; Protocol Last Admin: 07/31/18 09:02 Dose: 100 mg Fluticasone Propionate (Flonase) 2 spr PRATIBHA HS PRN PRN Reason: Allergy symptoms Last Admin: 07/27/18 01:35 Dose: 2 spr Guaifenesin/Dextromethorphan (Mucinex-Dm 600-30 Mg) 1 tab PO BID [facility] Last Admin: 07/31/18 08:59 Dose: 1 tab Home Med (Patient's Own Medication) 5 unit MT TID [facility] Last Admin: 07/31/18 08:57 Dose: 5 unit Hydromorphone HCl (Dilaudid) 0.5 mg IVP Q4 PRN PRN Reason: Pain, severe (8-10) Azithromycin 500 mg/ Sodium (Chloride) 250 mls @ 250 mls/hr IVPB DAILY [facility]; Protocol Last Admin: 07/31/18 08:57 Dose: 250 mls/hr Ceftriaxone Sodium 1 gm/ (Sodium Chloride) 100 mls @ 100 mls/hr IVPB DAILY [facility]; Protocol Last Admin: 07/31/18 08:56 Dose: 100 mls/hr Isosorbide Mononitrate (Imdur Er) 30 mg PO DAILY [facility] Last Admin: 07/31/18 09:01 Dose: 30 mg Losartan Potassium (Cozaar) 25 mg PO DAILY [facility] Last Admin: 07/31/18 09:01 Dose: 25 mg Methylprednisolone (Solu-Medrol) 30 mg IVP Q12 [facility] Metoprolol Succinate (Toprol Xl) 25 mg PO DAILY [facility] Last Admin: 07/31/18 08:59 Dose: 25 mg Multivitamins/Minerals (Therapeutic-M Tab) 1 tab PO DAILY [facility] Last Admin: 07/31/18 08:59 Dose: 1 tab Nicotine (Nicoderm Cq) 1 patch TD DAILY [facility] Last Admin: 07/31/18 08:58 Dose: 1 patch Nitroglycerin (Nitrostat Sl Tab) 0.4 mg SL DAILY PRN PRN Reason: chest pain Octreotide Acetate (Sandostatin) 100 mcg SC Q12 [facility] Last Admin: 07/31/18 09:11 Dose: 100 mcg Promethazine HCl/Dextromethorphan (Phenergan Dm Syrup) 10 ml PO Q6 PRN PRN Reason: Cough Last Admin: 07/31/18 09:12 Dose: 10 ml Sodium Chloride (Sodium Chloride Tab) 1 gm PO BID [facility] Last Admin: 07/31/18 08:58 Dose: 1 gm Trazodone HCl (Desyrel) 100 mg PO HS [facility] Last Admin: 07/30/18 21:26 Dose: 100 mg Zolpidem Tartrate (Ambien) 5 mg PO HS PRN PRN Reason: Insomnia Last Admin: 07/30/18 23:55 Dose: 5 mg Physical Exam - Constitutional Appears: Non-toxic, Cachectic, Chronically Ill - Head Exam Head Exam: ATRAUMATIC, NORMAL INSPECTION, NORMOCEPHALIC - Eye Exam Eye Exam: PERRL - ENT Exam ENT Exam: Mucous Membranes Dry, Normal External Ear Exam - Neck Exam Neck exam: Negative for: Lymphadenopathy - Respiratory Exam Respiratory Exam: Decreased Breath Sounds, Prolonged Expiratory Phase, Rhonchi - Cardiovascular Exam Cardiovascular Exam: REGULAR RHYTHM, +S1, +S2 - GI/Abdominal Exam GI & Abdominal Exam: Diminished Bowel Sounds, Distended, Soft. absent: Guarding, Rebound, Rigid, Tenderness - Rectal Exam Rectal Exam: Deferred - Exam Exam: NORMAL INSPECTION - Extremities Exam Extremities exam: Positive for: pedal edema, pedal pulses present. Negative for: calf tenderness, tenderness - Back Exam Back exam: absent: CVA tenderness (L), CVA tenderness (R), paraspinal tenderness - Neurological Exam Neurological exam: Alert, CN II-XII Intact, Oriented x3, Reflexes Normal - Psychiatric Exam Psychiatric exam: Depressed - Skin Skin Exam: Dry, Intact Results - Vital Signs Recent Vital Signs: Last Vital Signs Temp 97.1 F L 07/31/18 12:38 Pulse 75 07/31/18 12:38 Resp 18 07/31/18 12:38 BP 132/76 07/31/18 12:38 Pulse Ox 94 L 07/31/18 12:38 - Labs Result Diagrams: 07/31/18 04:30 07/31/18 04:30 Labs: Laboratory Results - last 24 hr 07/31/18 07/31/18 04:30 04:30 WBC 17.9 H RBC 3.35 L Hgb 11.0 L Hct 32.3 L MCV 96.5 MCH 32.7 H MCHC 33.9 RDW 15.5 H Plt Count 328 Sodium 130 L Potassium 4.3 Chloride 92 L Carbon Dioxide 31 H Anion Gap 11 BUN 27 H Creatinine 0.9 Est GFR ( Amer) > 60 Est GFR (Non-Af Amer) > 60 Random Glucose 115 H Calcium 9.3 Assessment & Plan (1) Anxiety disorder Status: Acute (2) COPD exacerbation Status: Acute Priority: High (3) Hematoma Status: Acute (4) Hyponatremia Status: Acute (5) Influenza A H1N1 infection Status: Acute Priority: High (6) Leukocytosis Status: Acute (7) NSTEMI (non-ST elevated myocardial infarction) Status: Acute Priority: High (8) Chronic congestive heart failure Status: Chronic Priority: Medium - Assessment and Plan (Free Text) Assessment: cont empiric IV antibiotics will review cultures and adjust as needed
--- NOTE | 2018-07-31 22:34 | CP.PCM.PN ---
Subjective - Date & Time of Evaluation Date of Evaluation: 07/31/18 Time of Evaluation: 12:30 - Subjective Subjective: Patient reports tolerating diet; emptied out ostomy bag once already but was not nearly full of stool, mostly gas; Objective - Vital Signs/Intake and Output Vital Signs (last 24 hours): Temp Pulse Resp BP Pulse Ox 97.8 F 66 18 137/65 96 07/31/18 20:36 07/31/18 20:36 07/31/18 20:36 07/31/18 20:36 07/31/18 20:36 - Medications Medications: Current Medications Acetaminophen (Tylenol 325mg Tab) 650 mg PO Q6 PRN PRN Reason: Headache Last Admin: 07/23/18 22:24 Dose: 650 mg Acetylcysteine (Acetylcysteine 20%) 2 ml INH RBID [facility] Last Admin: 07/31/18 19:18 Dose: 2 ml Albuterol/Ipratropium (Duoneb 3 Mg/0.5 Mg (3 Ml) Ud) 3 ml INH RQ4 [facility] Last Admin: 07/31/18 19:19 Dose: 3 ml Alprazolam (Xanax) 0.5 mg PO Q8 PRN PRN Reason: Anxiety Last Admin: 07/31/18 14:48 Dose: 0.5 mg Aspirin (Ecotrin) 325 mg PO DAILY [facility] Last Admin: 07/31/18 09:01 Dose: 325 mg Atorvastatin Calcium (Lipitor) 20 mg PO DAILY [facility] Last Admin: 07/31/18 09:01 Dose: 20 mg Budesonide (Pulmicort Respules) 0.25 mg INH RBID [facility] Last Admin: 07/31/18 19:30 Dose: 0.25 mg Clopidogrel Bisulfate (Plavix) 75 mg PO DAILY [facility] Last Admin: 07/31/18 08:59 Dose: 75 mg Cyanocobalamin (Vitamin B12 1000 Mcg/Ml Inj) 1,000 mcg IM Q14D [facility] Last Admin: 07/23/18 10:17 Dose: 1,000 mcg Ergocalciferol (Drisdol 50,000 Intl Units Cap) 1 cap PO MO [facility] Last Admin: 07/27/18 08:20 Dose: 1 cap Fluconazole (Diflucan) 100 mg PO DAILY [facility]; Protocol Last Admin: 07/31/18 09:02 Dose: 100 mg Fluticasone Propionate (Flonase) 2 spr PRATIBHA HS PRN PRN Reason: Allergy symptoms Last Admin: 07/27/18 01:35 Dose: 2 spr Guaifenesin/Dextromethorphan (Mucinex-Dm 600-30 Mg) 1 tab PO BID [facility] Last Admin: 07/31/18 16:49 Dose: 1 tab Home Med (Patient's Own Medication) 5 unit MT TID [facility] Last Admin: 07/31/18 16:50 Dose: 5 unit Hydromorphone HCl (Dilaudid) 0.5 mg IVP Q4 PRN PRN Reason: Pain, severe (8-10) Azithromycin 500 mg/ Sodium (Chloride) 250 mls @ 250 mls/hr IVPB DAILY [facility]; Protocol Last Admin: 07/31/18 08:57 Dose: 250 mls/hr Ceftriaxone Sodium 1 gm/ (Sodium Chloride) 100 mls @ 100 mls/hr IVPB DAILY [facility]; Protocol Last Admin: 07/31/18 08:56 Dose: 100 mls/hr Isosorbide Mononitrate (Imdur Er) 30 mg PO DAILY [facility] Last Admin: 07/31/18 09:01 Dose: 30 mg Losartan Potassium (Cozaar) 25 mg PO DAILY [facility] Last Admin: 07/31/18 09:01 Dose: 25 mg Methylprednisolone (Solu-Medrol) 30 mg IVP Q12 [facility] Last Admin: 07/31/18 21:38 Dose: 30 mg Metoprolol Succinate (Toprol Xl) 25 mg PO DAILY [facility] Last Admin: 07/31/18 08:59 Dose: 25 mg Multivitamins/Minerals (Therapeutic-M Tab) 1 tab PO DAILY [facility] Last Admin: 07/31/18 08:59 Dose: 1 tab Nicotine (Nicoderm Cq) 1 patch TD DAILY [facility] Last Admin: 07/31/18 08:58 Dose: 1 patch Nitroglycerin (Nitrostat Sl Tab) 0.4 mg SL DAILY PRN PRN Reason: chest pain Octreotide Acetate (Sandostatin) 100 mcg SC Q12 [facility] Last Admin: 07/31/18 21:39 Dose: 100 mcg Promethazine HCl/Dextromethorphan (Phenergan Dm Syrup) 10 ml PO Q6 PRN PRN Reason: Cough Last Admin: 07/31/18 09:12 Dose: 10 ml Sodium Chloride (Sodium Chloride Tab) 1 gm PO BID [facility] Last Admin: 07/31/18 16:49 Dose: 1 gm Trazodone HCl (Desyrel) 100 mg PO HS [facility] Last Admin: 07/31/18 21:39 Dose: 100 mg Zolpidem Tartrate (Ambien) 5 mg PO HS PRN PRN Reason: Insomnia Last Admin: 07/30/18 23:55 Dose: 5 mg - Labs Labs: 07/31/18 04:30 07/31/18 04:30 PT 11.1 Seconds (9.8-13.1) 07/29/18 13:30 INR 1.0 07/29/18 13:30 APTT 25.0 Seconds (25.6-37.1) L 07/29/18 13:30 - Constitutional Appears: Non-toxic, No Acute Distress - Eye Exam Eye Exam: Normal appearance - Respiratory Exam Respiratory Exam: absent: Respiratory Distress Additional comments: some rales - Cardiovascular Exam Cardiovascular Exam: RRR, +S1, +S2 - GI/Abdominal Exam GI & Abdominal Exam: Soft - Extremities Exam Additional comments: no signficant leg edema; - Psychiatric Exam Psychiatric exam: Normal Affect. absent: Agitated - Skin Skin Exam: Warm. absent: Cyanosis Assessment and Plan (1) Hyponatremia Assessment & Plan: Improved; mild but persistent; doesn't want lasix; recommend to continue salt tabs, advised patient on need for PO fluid restriction; Status: Acute (2) Chronic congestive heart failure Assessment & Plan: No signs of failure; should be ok with salt tabs and increased soidum diet given her ostomy losses; Status: Chronic (3) Hypertension Status: Chronic
[2018-08-01] MEDS: Albuterol-Ipratrop 3 mg / 0.5 (3 ml) UD INH SCH ×7 (00:05→23:28)
--- NOTE | 2018-08-01 01:29 | CP.PCM.PN ---
Subjective - Date & Time of Evaluation Date of Evaluation: 07/31/18 Time of Evaluation: 16:15 Objective - Vital Signs/Intake and Output Vital Signs (last 24 hours): Temp Pulse Resp BP Pulse Ox 97.6 F 89 17 152/83 H 94 L 08/01/18 00:19 08/01/18 00:19 08/01/18 00:19 08/01/18 00:19 08/01/18 00:19 - Medications Medications: Current Medications Acetaminophen (Tylenol 325mg Tab) 650 mg PO Q6 PRN PRN Reason: Headache Last Admin: 07/23/18 22:24 Dose: 650 mg Acetylcysteine (Acetylcysteine 20%) 2 ml INH RBID [facility] Last Admin: 07/31/18 19:18 Dose: 2 ml Albuterol/Ipratropium (Duoneb 3 Mg/0.5 Mg (3 Ml) Ud) 3 ml INH RQ4 [facility] Last Admin: 07/31/18 19:19 Dose: 3 ml Alprazolam (Xanax) 0.5 mg PO Q8 PRN PRN Reason: Anxiety Last Admin: 07/31/18 14:48 Dose: 0.5 mg Aspirin (Ecotrin) 325 mg PO DAILY [facility] Last Admin: 07/31/18 09:01 Dose: 325 mg Atorvastatin Calcium (Lipitor) 20 mg PO DAILY [facility] Last Admin: 07/31/18 09:01 Dose: 20 mg Budesonide (Pulmicort Respules) 0.25 mg INH RBID [facility] Last Admin: 07/31/18 19:30 Dose: 0.25 mg Clopidogrel Bisulfate (Plavix) 75 mg PO DAILY [facility] Last Admin: 07/31/18 08:59 Dose: 75 mg Cyanocobalamin (Vitamin B12 1000 Mcg/Ml Inj) 1,000 mcg IM Q14D [facility] Last Admin: 07/23/18 10:17 Dose: 1,000 mcg Ergocalciferol (Drisdol 50,000 Intl Units Cap) 1 cap PO MO [facility] Last Admin: 07/27/18 08:20 Dose: 1 cap Fluconazole (Diflucan) 100 mg PO DAILY [facility]; Protocol Last Admin: 07/31/18 09:02 Dose: 100 mg Fluticasone Propionate (Flonase) 2 spr PRATIBHA HS PRN PRN Reason: Allergy symptoms Last Admin: 07/27/18 01:35 Dose: 2 spr Guaifenesin/Dextromethorphan (Mucinex-Dm 600-30 Mg) 1 tab PO BID [facility] Last Admin: 07/31/18 16:49 Dose: 1 tab Home Med (Patient's Own Medication) 5 unit MT TID [facility] Last Admin: 07/31/18 16:50 Dose: 5 unit Hydromorphone HCl (Dilaudid) 0.5 mg IVP Q4 PRN PRN Reason: Pain, severe (8-10) Last Admin: 08/01/18 00:29 Dose: 0.5 mg Azithromycin 500 mg/ Sodium (Chloride) 250 mls @ 250 mls/hr IVPB DAILY [facility]; Protocol Last Admin: 07/31/18 08:57 Dose: 250 mls/hr Ceftriaxone Sodium 1 gm/ (Sodium Chloride) 100 mls @ 100 mls/hr IVPB DAILY [facility]; Protocol Last Admin: 07/31/18 08:56 Dose: 100 mls/hr Isosorbide Mononitrate (Imdur Er) 30 mg PO DAILY [facility] Last Admin: 07/31/18 09:01 Dose: 30 mg Losartan Potassium (Cozaar) 25 mg PO DAILY [facility] Last Admin: 07/31/18 09:01 Dose: 25 mg Methylprednisolone (Solu-Medrol) 30 mg IVP Q12 [facility] Last Admin: 07/31/18 21:38 Dose: 30 mg Metoprolol Succinate (Toprol Xl) 25 mg PO DAILY [facility] Last Admin: 07/31/18 08:59 Dose: 25 mg Multivitamins/Minerals (Therapeutic-M Tab) 1 tab PO DAILY [facility] Last Admin: 07/31/18 08:59 Dose: 1 tab Nicotine (Nicoderm Cq) 1 patch TD DAILY [facility] Last Admin: 07/31/18 08:58 Dose: 1 patch Nitroglycerin (Nitrostat Sl Tab) 0.4 mg SL DAILY PRN PRN Reason: chest pain Octreotide Acetate (Sandostatin) 100 mcg SC Q12 [facility] Last Admin: 07/31/18 21:39 Dose: 100 mcg Promethazine HCl/Dextromethorphan (Phenergan Dm Syrup) 10 ml PO Q6 PRN PRN Reason: Cough Last Admin: 07/31/18 09:12 Dose: 10 ml Sodium Chloride (Sodium Chloride Tab) 1 gm PO BID [facility] Last Admin: 07/31/18 16:49 Dose: 1 gm Trazodone HCl (Desyrel) 100 mg PO HS [facility] Last Admin: 07/31/18 21:39 Dose: 100 mg Zolpidem Tartrate (Ambien) 5 mg PO HS PRN PRN Reason: Insomnia Last Admin: 07/31/18 23:04 Dose: 5 mg - Labs Labs: 07/31/18 04:30 07/31/18 04:30 PT 11.1 Seconds (9.8-13.1) 07/29/18 13:30 INR 1.0 07/29/18 13:30 APTT 25.0 Seconds (25.6-37.1) L 07/29/18 13:30 Assessment and Plan (1) Influenza A H1N1 infection Status: Acute (2) COPD exacerbation Status: Acute (3) NSTEMI (non-ST elevated myocardial infarction) Status: Acute (4) Hyponatremia Status: Acute (5) Chronic congestive heart failure Status: Chronic (6) Anxiety disorder Status: Acute (7) Hypertension Status: Chronic (8) Anemia Status: Acute
[2018-08-01] MEDS: Acetylcysteine 20% Inhal Soln (4ml) INH SCH ×2 (08:08→19:07)
[2018-08-01] MEDS: Budesonide 0.25 mg/2 ml Inhal Susp UD INH SCH ×2 (08:08→19:07)
[2018-08-01] MEDS: Aspirin 325 mg EC Tablets PO SCH (09:56)
[2018-08-01] MEDS: guaiFENesin-DM 600-30 mg ER Tab PO SCH ×2 (09:56→17:01)
[2018-08-01] MEDS: Metoprolol Succinate 25 mg XL Tab PO SCH (09:56)
[2018-08-01] MEDS: Azithromycin 500 MG in Sodium Chloride 0.9% 250 ML IVPB SCH (09:59)
--- NOTE | 2018-08-01 10:40 | CP.PCM.PN ---
Subjective - Date & Time of Evaluation Date of Evaluation: 08/01/18 Time of Evaluation: 10:39 - Subjective Subjective: SOB LESS NO CHEST PAINS COUGH IMPROVED STILL VERY ANXIOUS VSS Objective - Vital Signs/Intake and Output Vital Signs (last 24 hours): Temp Pulse Resp BP Pulse Ox 97.4 F L 85 20 134/66 91 L 08/01/18 09:08 08/01/18 09:08 08/01/18 09:08 08/01/18 09:08 08/01/18 09:08 - Medications Medications: Current Medications Acetaminophen (Tylenol 325mg Tab) 650 mg PO Q6 PRN PRN Reason: Headache Last Admin: 07/23/18 22:24 Dose: 650 mg Acetylcysteine (Acetylcysteine 20%) 2 ml INH RBID [facility] Last Admin: 08/01/18 08:08 Dose: 2 ml Albuterol/Ipratropium (Duoneb 3 Mg/0.5 Mg (3 Ml) Ud) 3 ml INH RQ4 [facility] Last Admin: 08/01/18 08:08 Dose: 3 ml Alprazolam (Xanax) 0.5 mg PO Q8 PRN PRN Reason: Anxiety Last Admin: 07/31/18 14:48 Dose: 0.5 mg Aspirin (Ecotrin) 325 mg PO DAILY [facility] Last Admin: 08/01/18 09:56 Dose: 325 mg Atorvastatin Calcium (Lipitor) 20 mg PO DAILY [facility] Last Admin: 08/01/18 09:56 Dose: 20 mg Budesonide (Pulmicort Respules) 0.25 mg INH RBID [facility] Last Admin: 08/01/18 08:08 Dose: 0.25 mg Clopidogrel Bisulfate (Plavix) 75 mg PO DAILY [facility] Last Admin: 08/01/18 09:56 Dose: 75 mg Cyanocobalamin (Vitamin B12 1000 Mcg/Ml Inj) 1,000 mcg IM Q14D [facility] Last Admin: 07/23/18 10:17 Dose: 1,000 mcg Ergocalciferol (Drisdol 50,000 Intl Units Cap) 1 cap PO MO [facility] Last Admin: 07/27/18 08:20 Dose: 1 cap Fluconazole (Diflucan) 100 mg PO DAILY [facility]; Protocol Last Admin: 08/01/18 09:56 Dose: 100 mg Fluticasone Propionate (Flonase) 2 spr PRATIBHA HS PRN PRN Reason: Allergy symptoms Last Admin: 07/27/18 01:35 Dose: 2 spr Guaifenesin/Dextromethorphan (Mucinex-Dm 600-30 Mg) 1 tab PO BID [facility] Last Admin: 08/01/18 09:56 Dose: 1 tab Home Med (Patient's Own Medication) 5 unit MT TID [facility] Last Admin: 08/01/18 09:57 Dose: 5 unit Hydromorphone HCl (Dilaudid) 0.5 mg IVP Q4 PRN PRN Reason: Pain, severe (8-10) Last Admin: 08/01/18 00:29 Dose: 0.5 mg Azithromycin 500 mg/ Sodium (Chloride) 250 mls @ 250 mls/hr IVPB DAILY [facility]; Protocol Last Admin: 08/01/18 09:59 Dose: 250 mls/hr Ceftriaxone Sodium 1 gm/ (Sodium Chloride) 100 mls @ 100 mls/hr IVPB DAILY [facility]; Protocol Last Admin: 08/01/18 09:58 Dose: 100 mls/hr Isosorbide Mononitrate (Imdur Er) 30 mg PO DAILY [facility] Last Admin: 08/01/18 09:57 Dose: 30 mg Losartan Potassium (Cozaar) 25 mg PO DAILY [facility] Last Admin: 08/01/18 09:56 Dose: 25 mg Methylprednisolone (Solu-Medrol) 30 mg IVP Q12 [facility] Last Admin: 07/31/18 21:38 Dose: 30 mg Metoprolol Succinate (Toprol Xl) 25 mg PO DAILY [facility] Last Admin: 08/01/18 09:56 Dose: 25 mg Multivitamins/Minerals (Therapeutic-M Tab) 1 tab PO DAILY [facility] Last Admin: 07/31/18 08:59 Dose: 1 tab Nicotine (Nicoderm Cq) 1 patch TD DAILY [facility] Last Admin: 08/01/18 09:56 Dose: 1 patch Nitroglycerin (Nitrostat Sl Tab) 0.4 mg SL DAILY PRN PRN Reason: chest pain Octreotide Acetate (Sandostatin) 100 mcg SC Q12 [facility] Last Admin: 07/31/18 21:39 Dose: 100 mcg Promethazine HCl/Dextromethorphan (Phenergan Dm Syrup) 10 ml PO Q6 PRN PRN Reason: Cough Last Admin: 07/31/18 09:12 Dose: 10 ml Sodium Chloride (Sodium Chloride Tab) 1 gm PO BID [facility] Last Admin: 08/01/18 09:56 Dose: 1 gm Trazodone HCl (Desyrel) 100 mg PO HS [facility] Last Admin: 07/31/18 21:39 Dose: 100 mg Zolpidem Tartrate (Ambien) 5 mg PO HS PRN PRN Reason: Insomnia Last Admin: 07/31/18 23:04 Dose: 5 mg - Labs Labs: 07/31/18 04:30 07/31/18 04:30 PT 11.1 Seconds (9.8-13.1) 07/29/18 13:30 INR 1.0 07/29/18 13:30 APTT 25.0 Seconds (25.6-37.1) L 07/29/18 13:30 - Constitutional Appears: No Acute Distress, Chronically Ill - Head Exam Head Exam: ATRAUMATIC, NORMAL INSPECTION, NORMOCEPHALIC - Eye Exam Eye Exam: EOMI, Normal appearance, PERRL Pupil Exam: NORMAL ACCOMODATION, PERRL - ENT Exam ENT Exam: Mucous Membranes Moist, Normal Exam - Neck Exam Neck Exam: Full ROM, Normal Inspection. absent: Lymphadenopathy - Respiratory Exam Respiratory Exam: Decreased Breath Sounds, Prolonged Expiratory Phase, Rales, NORMAL BREATHING PATTERN - Cardiovascular Exam Cardiovascular Exam: REGULAR RHYTHM, +S1, +S2. absent: Murmur - GI/Abdominal Exam GI & Abdominal Exam: Soft, Normal Bowel Sounds. absent: Tenderness - Rectal Exam Rectal Exam: NORMAL INSPECTION - Extremities Exam Extremities Exam: Full ROM, Normal Capillary Refill, Normal Inspection. absent: Joint Swelling, Pedal Edema - Back Exam Back Exam: NORMAL INSPECTION - Neurological Exam Neurological Exam: Alert, Awake, CN II-XII Intact, Normal Gait, Oriented x3 - Psychiatric Exam Psychiatric exam: Normal Affect, Normal Mood - Skin Skin Exam: Dry, Intact, Normal Color, Warm Assessment and Plan - Assessment and Plan (Free Text) Assessment: COPD EXAC FLU--RESOLVED S/P ACUTE [place] ANXIETY Plan: CONTINUE CURRENT RX WILL FOLLOW WITH YOU
[2018-08-01] MEDS: MethylPREDNISolone 40 mg Vial IVP SCH (20:49)
[2018-08-02] MEDS: Albuterol-Ipratrop 3 mg / 0.5 (3 ml) UD INH SCH ×6 (05:00→23:40)
[2018-08-02] MEDS: Acetylcysteine 20% Inhal Soln (4ml) INH SCH ×2 (07:47→19:01)
[2018-08-02] MEDS: guaiFENesin-DM 600-30 mg ER Tab PO SCH ×2 (10:07→17:08)
[2018-08-02] MEDS: Aspirin 325 mg EC Tablets PO SCH (10:08)
[2018-08-02] MEDS: Metoprolol Succinate 25 mg XL Tab PO SCH (10:11)
[2018-08-02] MEDS: Multivitamin With Minerals Tab PO SCH (10:11)
[2018-08-02] MEDS: MethylPREDNISolone 40 mg Vial IVP SCH ×2 (10:14→21:47)
--- NOTE | 2018-08-02 11:04 | CP.PCM.PN ---
Subjective - Date & Time of Evaluation Date of Evaluation: 08/02/18 Time of Evaluation: 11:05 - Subjective Subjective: SOB AND COUGH IMPROVED NO CHEST PAINS Objective - Vital Signs/Intake and Output Vital Signs (last 24 hours): Temp Pulse Resp BP Pulse Ox 97.2 F L 68 20 137/65 97 08/02/18 08:50 08/02/18 10:11 08/02/18 08:50 08/02/18 10:11 08/02/18 08:50 - Medications Medications: Current Medications Acetaminophen (Tylenol 325mg Tab) 650 mg PO Q6 PRN PRN Reason: Headache Last Admin: 07/23/18 22:24 Dose: 650 mg Acetylcysteine (Acetylcysteine 20%) 2 ml INH RBID [facility] Last Admin: 08/02/18 07:47 Dose: 2 ml Albuterol/Ipratropium (Duoneb 3 Mg/0.5 Mg (3 Ml) Ud) 3 ml INH RQ4 [facility] Last Admin: 08/02/18 07:47 Dose: 3 ml Alprazolam (Xanax) 0.5 mg PO Q8 PRN PRN Reason: Anxiety Last Admin: 08/02/18 05:19 Dose: 0.5 mg Aspirin (Ecotrin) 325 mg PO DAILY [facility] Last Admin: 08/02/18 10:08 Dose: 325 mg Atorvastatin Calcium (Lipitor) 20 mg PO DAILY [facility] Last Admin: 08/02/18 10:07 Dose: 20 mg Budesonide (Pulmicort Respules) 0.25 mg INH RBID [facility] Last Admin: 08/01/18 19:07 Dose: 0.25 mg Clopidogrel Bisulfate (Plavix) 75 mg PO DAILY [facility] Last Admin: 08/02/18 10:10 Dose: 75 mg Cyanocobalamin (Vitamin B12 1000 Mcg/Ml Inj) 1,000 mcg IM Q14D [facility] Last Admin: 07/23/18 10:17 Dose: 1,000 mcg Ergocalciferol (Drisdol 50,000 Intl Units Cap) 1 cap PO MO [facility] Last Admin: 07/27/18 08:20 Dose: 1 cap Fluconazole (Diflucan) 100 mg PO DAILY [facility]; Protocol Last Admin: 08/02/18 10:08 Dose: 100 mg Fluticasone Propionate (Flonase) 2 spr PRATIBHA HS PRN PRN Reason: Allergy symptoms Last Admin: 07/27/18 01:35 Dose: 2 spr Guaifenesin/Dextromethorphan (Mucinex-Dm 600-30 Mg) 1 tab PO BID [facility] Last Admin: 08/02/18 10:07 Dose: 1 tab Home Med (Patient's Own Medication) 5 unit MT TID [facility] Last Admin: 08/02/18 10:08 Dose: 5 unit Hydromorphone HCl (Dilaudid) 0.5 mg IVP Q4 PRN PRN Reason: Pain, severe (8-10) Last Admin: 08/02/18 05:52 Dose: 0.5 mg Ceftriaxone Sodium 1 gm/ (Sodium Chloride) 100 mls @ 100 mls/hr IVPB DAILY [facility]; Protocol Last Admin: 08/02/18 09:59 Dose: 100 mls/hr Isosorbide Mononitrate (Imdur Er) 30 mg PO DAILY [facility] Last Admin: 08/02/18 10:10 Dose: 30 mg Losartan Potassium (Cozaar) 25 mg PO DAILY [facility] Last Admin: 08/02/18 10:00 Dose: 25 mg Methylprednisolone (Solu-Medrol) 30 mg IVP Q12 [facility] Last Admin: 08/02/18 10:14 Dose: 30 mg Metoprolol Succinate (Toprol Xl) 25 mg PO DAILY [facility] Last Admin: 08/02/18 10:11 Dose: 25 mg Multivitamins/Minerals (Therapeutic-M Tab) 1 tab PO DAILY [facility] Last Admin: 08/02/18 10:11 Dose: 1 tab Nicotine (Nicoderm Cq) 1 patch TD DAILY [facility] Last Admin: 08/02/18 10:06 Dose: 1 patch Nitroglycerin (Nitrostat Sl Tab) 0.4 mg SL DAILY PRN PRN Reason: chest pain Octreotide Acetate (Sandostatin) 100 mcg SC Q12 [facility] Last Admin: 08/02/18 10:39 Dose: 100 mcg Promethazine HCl/Dextromethorphan (Phenergan Dm Syrup) 10 ml PO Q6 PRN PRN Reason: Cough Last Admin: 07/31/18 09:12 Dose: 10 ml Sodium Chloride (Sodium Chloride Tab) 1 gm PO BID [facility] Last Admin: 08/02/18 10:09 Dose: 1 gm Trazodone HCl (Desyrel) 100 mg PO HS [facility] Last Admin: 08/01/18 21:00 Dose: 100 mg Zolpidem Tartrate (Ambien) 5 mg PO HS PRN PRN Reason: Insomnia Last Admin: 08/01/18 23:37 Dose: 5 mg - Labs Labs: 07/31/18 04:30 07/31/18 04:30 PT 11.1 Seconds (9.8-13.1) 07/29/18 13:30 INR 1.0 07/29/18 13:30 APTT 25.0 Seconds (25.6-37.1) L 07/29/18 13:30 - Constitutional Appears: Chronically Ill - Head Exam Head Exam: ATRAUMATIC, NORMAL INSPECTION, NORMOCEPHALIC - Eye Exam Eye Exam: EOMI, Normal appearance, PERRL Pupil Exam: NORMAL ACCOMODATION, PERRL - ENT Exam ENT Exam: Mucous Membranes Moist, Normal Exam - Neck Exam Neck Exam: Full ROM, Normal Inspection. absent: Lymphadenopathy - Respiratory Exam Respiratory Exam: Decreased Breath Sounds, Prolonged Expiratory Phase, Rales, NORMAL BREATHING PATTERN - Cardiovascular Exam Cardiovascular Exam: REGULAR RHYTHM, +S1, +S2. absent: Murmur - GI/Abdominal Exam GI & Abdominal Exam: Soft, Normal Bowel Sounds. absent: Tenderness Additional comments: COLOSTOMY IN PLACE - Rectal Exam Rectal Exam: NORMAL INSPECTION - Extremities Exam Extremities Exam: Full ROM, Normal Capillary Refill, Normal Inspection. absent: Joint Swelling, Pedal Edema - Back Exam Back Exam: NORMAL INSPECTION - Neurological Exam Neurological Exam: Alert, Awake, CN II-XII Intact, Normal Gait, Oriented x3 - Psychiatric Exam Psychiatric exam: Anxious - Skin Skin Exam: Dry, Intact, Warm Additional comments: ECCHYMOSIS OF ABD WALL Assessment and Plan - Assessment and Plan (Free Text) Assessment: COPD CLINICALLY IMPROVING S/P ACUTE [place] FLU--RESOLVED [place] ANXIETY Plan: CONTINUE CURRENT RX WILL BENEFIT FROM [facility]
--- NOTE | 2018-08-02 14:39 | CP.PCM.PN ---
Subjective - Date & Time of Evaluation Date of Evaluation: 08/02/18 Time of Evaluation: 07:00 - Subjective Subjective: 68 year old female presenting with shortness of breath, NSTEMI, s/p lovenox injection complicated by abdominal hematoma. Referred for ID eval of pneumonia / COPD IV antibiotic in progress awake alert denies fever chills or chest pain Objective - Vital Signs/Intake and Output Vital Signs (last 24 hours): Temp Pulse Resp BP Pulse Ox 97.4 F L 65 20 125/58 L 97 08/02/18 13:03 08/02/18 13:03 08/02/18 13:03 08/02/18 13:03 08/02/18 13:03 - Medications Medications: Current Medications Acetaminophen (Tylenol 325mg Tab) 650 mg PO Q6 PRN PRN Reason: Headache Last Admin: 07/23/18 22:24 Dose: 650 mg Acetylcysteine (Acetylcysteine 20%) 2 ml INH RBID [facility] Last Admin: 08/02/18 07:47 Dose: 2 ml Albuterol/Ipratropium (Duoneb 3 Mg/0.5 Mg (3 Ml) Ud) 3 ml INH RQ4 [facility] Last Admin: 08/02/18 11:32 Dose: 3 ml Alprazolam (Xanax) 0.5 mg PO Q8 PRN PRN Reason: Anxiety Last Admin: 08/02/18 05:19 Dose: 0.5 mg Aspirin (Ecotrin) 325 mg PO DAILY [facility] Last Admin: 08/02/18 10:08 Dose: 325 mg Atorvastatin Calcium (Lipitor) 20 mg PO DAILY [facility] Last Admin: 08/02/18 10:07 Dose: 20 mg Budesonide (Pulmicort Respules) 0.25 mg INH RBID [facility] Last Admin: 08/01/18 19:07 Dose: 0.25 mg Clopidogrel Bisulfate (Plavix) 75 mg PO DAILY [facility] Last Admin: 08/02/18 10:10 Dose: 75 mg Cyanocobalamin (Vitamin B12 1000 Mcg/Ml Inj) 1,000 mcg IM Q14D [facility] Last Admin: 07/23/18 10:17 Dose: 1,000 mcg Ergocalciferol (Drisdol 50,000 Intl Units Cap) 1 cap PO MO [facility] Last Admin: 07/27/18 08:20 Dose: 1 cap Fluconazole (Diflucan) 100 mg PO DAILY [facility]; Protocol Last Admin: 08/02/18 10:08 Dose: 100 mg Fluticasone Propionate (Flonase) 2 spr PRATIBHA HS PRN PRN Reason: Allergy symptoms Last Admin: 07/27/18 01:35 Dose: 2 spr Guaifenesin/Dextromethorphan (Mucinex-Dm 600-30 Mg) 1 tab PO BID [facility] Last Admin: 08/02/18 10:07 Dose: 1 tab Home Med (Patient's Own Medication) 5 unit MT TID [facility] Last Admin: 08/02/18 13:41 Dose: 5 unit Hydromorphone HCl (Dilaudid) 0.5 mg IVP Q4 PRN PRN Reason: Pain, severe (8-10) Last Admin: 08/02/18 05:52 Dose: 0.5 mg Ceftriaxone Sodium 1 gm/ (Sodium Chloride) 100 mls @ 100 mls/hr IVPB DAILY [facility]; Protocol Last Admin: 08/02/18 09:59 Dose: 100 mls/hr Isosorbide Mononitrate (Imdur Er) 30 mg PO DAILY [facility] Last Admin: 08/02/18 10:10 Dose: 30 mg Losartan Potassium (Cozaar) 25 mg PO DAILY [facility] Last Admin: 08/02/18 10:00 Dose: 25 mg Methylprednisolone (Solu-Medrol) 30 mg IVP Q12 [facility] Last Admin: 08/02/18 10:14 Dose: 30 mg Metoprolol Succinate (Toprol Xl) 25 mg PO DAILY [facility] Last Admin: 08/02/18 10:11 Dose: 25 mg Multivitamins/Minerals (Therapeutic-M Tab) 1 tab PO DAILY [facility] Last Admin: 08/02/18 10:11 Dose: 1 tab Nicotine (Nicoderm Cq) 1 patch TD DAILY [facility] Last Admin: 08/02/18 10:06 Dose: 1 patch Nitroglycerin (Nitrostat Sl Tab) 0.4 mg SL DAILY PRN PRN Reason: chest pain Octreotide Acetate (Sandostatin) 100 mcg SC Q12 [facility] Last Admin: 08/02/18 10:39 Dose: 100 mcg Promethazine HCl/Dextromethorphan (Phenergan Dm Syrup) 10 ml PO Q6 PRN PRN Reason: Cough Last Admin: 07/31/18 09:12 Dose: 10 ml Sodium Chloride (Sodium Chloride Tab) 1 gm PO BID [facility] Last Admin: 08/02/18 10:09 Dose: 1 gm Trazodone HCl (Desyrel) 100 mg PO HS [facility] Last Admin: 08/01/18 21:00 Dose: 100 mg Zolpidem Tartrate (Ambien) 5 mg PO HS PRN PRN Reason: Insomnia Last Admin: 08/01/18 23:37 Dose: 5 mg - Labs Labs: 07/31/18 04:30 07/31/18 04:30 PT 11.1 Seconds (9.8-13.1) 07/29/18 13:30 INR 1.0 07/29/18 13:30 APTT 25.0 Seconds (25.6-37.1) L 07/29/18 13:30 - Constitutional Appears: Non-toxic, Cachectic, Chronically Ill - Head Exam Head Exam: ATRAUMATIC, NORMAL INSPECTION, NORMOCEPHALIC - Eye Exam Eye Exam: PERRL. absent: Scleral icterus - ENT Exam ENT Exam: Mucous Membranes Dry - Neck Exam Neck Exam: absent: Lymphadenopathy - Respiratory Exam Respiratory Exam: Decreased Breath Sounds, Rhonchi - Cardiovascular Exam Cardiovascular Exam: REGULAR RHYTHM, +S1, +S2 - GI/Abdominal Exam GI & Abdominal Exam: Distended, Soft. absent: Tenderness - Rectal Exam Rectal Exam: Deferred - Exam Exam: NORMAL INSPECTION - Extremities Exam Extremities Exam: absent: Pedal Edema - Back Exam Back Exam: absent: CVA tenderness (L), CVA tenderness (R), paraspinal tenderness - Neurological Exam Neurological Exam: Alert, Awake, Oriented x3 - Psychiatric Exam Psychiatric exam: Depressed - Skin Skin Exam: Dry Assessment and Plan (1) Anxiety disorder Status: Acute (2) COPD exacerbation Status: Acute (3) Hematoma Status: Acute (4) Hyponatremia Status: Acute (5) Influenza A H1N1 infection Status: Acute (6) Leukocytosis Status: Acute (7) NSTEMI (non-ST elevated myocardial infarction) Status: Acute (8) Chronic congestive heart failure Status: Chronic - Assessment and Plan (Free Text) Assessment: 68 year old female presenting with shortness of breath, NSTEMI, s/p lovenox injection complicated by abdominal hematoma. Referred for ID eval of pneumonia / COPD IV antibiotic in progress wbc elevation likely from steroids no new cultures cont rx
[2018-08-02] MEDS: Budesonide 0.25 mg/2 ml Inhal Susp UD INH SCH (19:01)
--- NOTE | 2018-08-02 22:05 | CP.PCM.PN ---
Subjective - Date & Time of Evaluation Date of Evaluation: 08/02/18 Time of Evaluation: 16:15 Objective - Vital Signs/Intake and Output Vital Signs (last 24 hours): Temp Pulse Resp BP Pulse Ox 97.5 F L 67 18 138/72 96 08/02/18 20:33 08/02/18 20:33 08/02/18 20:33 08/02/18 20:33 08/02/18 20:33 - Medications Medications: Current Medications Acetaminophen (Tylenol 325mg Tab) 650 mg PO Q6 PRN PRN Reason: Headache Last Admin: 07/23/18 22:24 Dose: 650 mg Acetylcysteine (Acetylcysteine 20%) 2 ml INH RBID [facility] Last Admin: 08/02/18 19:01 Dose: 2 ml Albuterol/Ipratropium (Duoneb 3 Mg/0.5 Mg (3 Ml) Ud) 3 ml INH RQ4 [facility] Last Admin: 08/02/18 19:01 Dose: 3 ml Alprazolam (Xanax) 0.5 mg PO Q8 PRN PRN Reason: Anxiety Last Admin: 08/02/18 17:08 Dose: 0.5 mg Aspirin (Ecotrin) 325 mg PO DAILY [facility] Last Admin: 08/02/18 10:08 Dose: 325 mg Atorvastatin Calcium (Lipitor) 20 mg PO DAILY [facility] Last Admin: 08/02/18 10:07 Dose: 20 mg Budesonide (Pulmicort Respules) 0.25 mg INH RBID [facility] Last Admin: 08/02/18 19:01 Dose: 0.25 mg Clopidogrel Bisulfate (Plavix) 75 mg PO DAILY [facility] Last Admin: 08/02/18 10:10 Dose: 75 mg Cyanocobalamin (Vitamin B12 1000 Mcg/Ml Inj) 1,000 mcg IM Q14D [facility] Last Admin: 07/23/18 10:17 Dose: 1,000 mcg Ergocalciferol (Drisdol 50,000 Intl Units Cap) 1 cap PO MO [facility] Last Admin: 07/27/18 08:20 Dose: 1 cap Fluconazole (Diflucan) 100 mg PO DAILY [facility]; Protocol Last Admin: 08/02/18 10:08 Dose: 100 mg Fluticasone Propionate (Flonase) 2 spr PRATIBHA HS PRN PRN Reason: Allergy symptoms Last Admin: 07/27/18 01:35 Dose: 2 spr Guaifenesin/Dextromethorphan (Mucinex-Dm 600-30 Mg) 1 tab PO BID [facility] Last Admin: 08/02/18 17:08 Dose: Not Given Home Med (Patient's Own Medication) 5 unit MT TID [facility] Last Admin: 08/02/18 17:08 Dose: 5 unit Hydromorphone HCl (Dilaudid) 0.5 mg IVP Q4 PRN PRN Reason: Pain, severe (8-10) Last Admin: 08/02/18 05:52 Dose: 0.5 mg Ceftriaxone Sodium 1 gm/ (Sodium Chloride) 100 mls @ 100 mls/hr IVPB DAILY [facility]; Protocol Last Admin: 08/02/18 09:59 Dose: 100 mls/hr Isosorbide Mononitrate (Imdur Er) 30 mg PO DAILY [facility] Last Admin: 08/02/18 10:10 Dose: 30 mg Losartan Potassium (Cozaar) 25 mg PO DAILY [facility] Last Admin: 08/02/18 10:00 Dose: 25 mg Methylprednisolone (Solu-Medrol) 30 mg IVP Q12 [facility] Last Admin: 08/02/18 21:47 Dose: 30 mg Metoprolol Succinate (Toprol Xl) 25 mg PO DAILY [facility] Last Admin: 08/02/18 10:11 Dose: 25 mg Multivitamins/Minerals (Therapeutic-M Tab) 1 tab PO DAILY [facility] Last Admin: 08/02/18 10:11 Dose: 1 tab Nicotine (Nicoderm Cq) 1 patch TD DAILY [facility] Last Admin: 08/02/18 10:06 Dose: 1 patch Nitroglycerin (Nitrostat Sl Tab) 0.4 mg SL DAILY PRN PRN Reason: chest pain Octreotide Acetate (Sandostatin) 100 mcg SC Q12 [facility] Last Admin: 08/02/18 21:48 Dose: 100 mcg Promethazine HCl/Dextromethorphan (Phenergan Dm Syrup) 10 ml PO Q6 PRN PRN Reason: Cough Last Admin: 07/31/18 09:12 Dose: 10 ml Sodium Chloride (Sodium Chloride Tab) 1 gm PO BID [facility] Last Admin: 08/02/18 10:09 Dose: 1 gm Trazodone HCl (Desyrel) 100 mg PO HS [facility] Last Admin: 08/02/18 21:45 Dose: 100 mg Zolpidem Tartrate (Ambien) 5 mg PO HS PRN PRN Reason: Insomnia Last Admin: 08/01/18 23:37 Dose: 5 mg - Labs Labs: 07/31/18 04:30 07/31/18 04:30 PT 11.1 Seconds (9.8-13.1) 07/29/18 13:30 INR 1.0 07/29/18 13:30 APTT 25.0 Seconds (25.6-37.1) L 07/29/18 13:30 Assessment and Plan (1) Influenza A H1N1 infection Status: Acute (2) COPD exacerbation Status: Acute (3) NSTEMI (non-ST elevated myocardial infarction) Status: Acute (4) Hyponatremia Status: Acute (5) Chronic congestive heart failure Status: Chronic (6) Anxiety disorder Status: Acute (7) Hypertension Status: Chronic (8) Anemia Status: Acute
--- NOTE | 2018-08-02 22:05 | CP.PCM.PN ---
Subjective - Date & Time of Evaluation Date of Evaluation: 08/01/18 Time of Evaluation: 17:15 Objective - Vital Signs/Intake and Output Vital Signs (last 24 hours): Temp Pulse Resp BP Pulse Ox 97.5 F L 67 18 138/72 96 08/02/18 20:33 08/02/18 20:33 08/02/18 20:33 08/02/18 20:33 08/02/18 20:33 - Medications Medications: Current Medications Acetaminophen (Tylenol 325mg Tab) 650 mg PO Q6 PRN PRN Reason: Headache Last Admin: 07/23/18 22:24 Dose: 650 mg Acetylcysteine (Acetylcysteine 20%) 2 ml INH RBID [facility] Last Admin: 08/02/18 19:01 Dose: 2 ml Albuterol/Ipratropium (Duoneb 3 Mg/0.5 Mg (3 Ml) Ud) 3 ml INH RQ4 [facility] Last Admin: 08/02/18 19:01 Dose: 3 ml Alprazolam (Xanax) 0.5 mg PO Q8 PRN PRN Reason: Anxiety Last Admin: 08/02/18 17:08 Dose: 0.5 mg Aspirin (Ecotrin) 325 mg PO DAILY [facility] Last Admin: 08/02/18 10:08 Dose: 325 mg Atorvastatin Calcium (Lipitor) 20 mg PO DAILY [facility] Last Admin: 08/02/18 10:07 Dose: 20 mg Budesonide (Pulmicort Respules) 0.25 mg INH RBID [facility] Last Admin: 08/02/18 19:01 Dose: 0.25 mg Clopidogrel Bisulfate (Plavix) 75 mg PO DAILY [facility] Last Admin: 08/02/18 10:10 Dose: 75 mg Cyanocobalamin (Vitamin B12 1000 Mcg/Ml Inj) 1,000 mcg IM Q14D [facility] Last Admin: 07/23/18 10:17 Dose: 1,000 mcg Ergocalciferol (Drisdol 50,000 Intl Units Cap) 1 cap PO MO [facility] Last Admin: 07/27/18 08:20 Dose: 1 cap Fluconazole (Diflucan) 100 mg PO DAILY [facility]; Protocol Last Admin: 08/02/18 10:08 Dose: 100 mg Fluticasone Propionate (Flonase) 2 spr PRATIBHA HS PRN PRN Reason: Allergy symptoms Last Admin: 07/27/18 01:35 Dose: 2 spr Guaifenesin/Dextromethorphan (Mucinex-Dm 600-30 Mg) 1 tab PO BID [facility] Last Admin: 08/02/18 17:08 Dose: Not Given Home Med (Patient's Own Medication) 5 unit MT TID [facility] Last Admin: 08/02/18 17:08 Dose: 5 unit Hydromorphone HCl (Dilaudid) 0.5 mg IVP Q4 PRN PRN Reason: Pain, severe (8-10) Last Admin: 08/02/18 05:52 Dose: 0.5 mg Ceftriaxone Sodium 1 gm/ (Sodium Chloride) 100 mls @ 100 mls/hr IVPB DAILY [facility]; Protocol Last Admin: 08/02/18 09:59 Dose: 100 mls/hr Isosorbide Mononitrate (Imdur Er) 30 mg PO DAILY [facility] Last Admin: 08/02/18 10:10 Dose: 30 mg Losartan Potassium (Cozaar) 25 mg PO DAILY [facility] Last Admin: 08/02/18 10:00 Dose: 25 mg Methylprednisolone (Solu-Medrol) 30 mg IVP Q12 [facility] Last Admin: 08/02/18 21:47 Dose: 30 mg Metoprolol Succinate (Toprol Xl) 25 mg PO DAILY [facility] Last Admin: 08/02/18 10:11 Dose: 25 mg Multivitamins/Minerals (Therapeutic-M Tab) 1 tab PO DAILY [facility] Last Admin: 08/02/18 10:11 Dose: 1 tab Nicotine (Nicoderm Cq) 1 patch TD DAILY [facility] Last Admin: 08/02/18 10:06 Dose: 1 patch Nitroglycerin (Nitrostat Sl Tab) 0.4 mg SL DAILY PRN PRN Reason: chest pain Octreotide Acetate (Sandostatin) 100 mcg SC Q12 [facility] Last Admin: 08/02/18 21:48 Dose: 100 mcg Promethazine HCl/Dextromethorphan (Phenergan Dm Syrup) 10 ml PO Q6 PRN PRN Reason: Cough Last Admin: 07/31/18 09:12 Dose: 10 ml Sodium Chloride (Sodium Chloride Tab) 1 gm PO BID [facility] Last Admin: 08/02/18 10:09 Dose: 1 gm Trazodone HCl (Desyrel) 100 mg PO HS [facility] Last Admin: 08/02/18 21:45 Dose: 100 mg Zolpidem Tartrate (Ambien) 5 mg PO HS PRN PRN Reason: Insomnia Last Admin: 08/01/18 23:37 Dose: 5 mg - Labs Labs: 07/31/18 04:30 07/31/18 04:30 PT 11.1 Seconds (9.8-13.1) 07/29/18 13:30 INR 1.0 07/29/18 13:30 APTT 25.0 Seconds (25.6-37.1) L 07/29/18 13:30 Assessment and Plan (1) Influenza A H1N1 infection Status: Acute (2) COPD exacerbation Status: Acute (3) NSTEMI (non-ST elevated myocardial infarction) Status: Acute (4) Hyponatremia Status: Acute (5) Chronic congestive heart failure Status: Chronic (6) Anxiety disorder Status: Acute (7) Hypertension Status: Chronic (8) Anemia Status: Acute
[2018-08-03 01:24] VITALS: RESP 20
[2018-08-03] MEDS ORDERED: HYDROmorphone 0.5 mg/0.5 ml ISec IVP ONE (03:12)
[2018-08-03] MEDS: Albuterol-Ipratrop 3 mg / 0.5 (3 ml) UD INH SCH ×4 (04:47→15:17)
[2018-08-03] MEDS: Budesonide 0.25 mg/2 ml Inhal Susp UD INH SCH ×2 (07:51→19:03)
[2018-08-03] MEDS: Acetylcysteine 20% Inhal Soln (4ml) INH SCH ×2 (07:52→19:03)
[2018-08-03] MEDS: Multivitamin With Minerals Tab PO SCH (09:04)
[2018-08-03] MEDS: Aspirin 325 mg EC Tablets PO SCH (09:05)
[2018-08-03] MEDS: Ergocalciferol 50,000 Intl Units Cap PO SCH (09:05)
[2018-08-03] MEDS: guaiFENesin-DM 600-30 mg ER Tab PO SCH ×2 (09:07→17:51)
[2018-08-03] MEDS: MethylPREDNISolone 40 mg Vial IVP SCH (09:10)
[2018-08-03] MEDS: Metoprolol Succinate 25 mg XL Tab PO SCH (09:10)
--- NOTE | 2018-08-03 10:11 | CP.PCM.PN ---
Subjective - Date & Time of Evaluation Date of Evaluation: 08/03/18 Time of Evaluation: 10:00 - Subjective Subjective: NO CHEST PAIN BREATHING MUCH BETTER, LESS COUGH Objective - Vital Signs/Intake and Output Vital Signs (last 24 hours): Temp Pulse Resp BP Pulse Ox 97.9 F 63 20 144/70 98 08/03/18 08:58 08/03/18 09:10 08/03/18 08:58 08/03/18 09:10 08/03/18 08:58 - Medications Medications: Current Medications Acetaminophen (Tylenol 325mg Tab) 650 mg PO Q6 PRN PRN Reason: Headache Last Admin: 07/23/18 22:24 Dose: 650 mg Acetylcysteine (Acetylcysteine 20%) 2 ml INH RBID [facility] Last Admin: 08/03/18 07:52 Dose: 2 ml Albuterol/Ipratropium (Duoneb 3 Mg/0.5 Mg (3 Ml) Ud) 3 ml INH RQ4 [facility] Last Admin: 08/03/18 07:51 Dose: 3 ml Aspirin (Ecotrin) 325 mg PO DAILY [facility] Last Admin: 08/03/18 09:05 Dose: 325 mg Atorvastatin Calcium (Lipitor) 20 mg PO DAILY [facility] Last Admin: 08/03/18 09:07 Dose: 20 mg Budesonide (Pulmicort Respules) 0.25 mg INH RBID [facility] Last Admin: 08/03/18 07:51 Dose: 0.25 mg Clopidogrel Bisulfate (Plavix) 75 mg PO DAILY [facility] Last Admin: 08/03/18 09:05 Dose: 75 mg Cyanocobalamin (Vitamin B12 1000 Mcg/Ml Inj) 1,000 mcg IM Q14D [facility] Last Admin: 07/23/18 10:17 Dose: 1,000 mcg Ergocalciferol (Drisdol 50,000 Intl Units Cap) 1 cap PO MO [facility] Last Admin: 08/03/18 09:05 Dose: 1 cap Fluticasone Propionate (Flonase) 2 spr PRATIBHA HS PRN PRN Reason: Allergy symptoms Last Admin: 07/27/18 01:35 Dose: 2 spr Guaifenesin/Dextromethorphan (Mucinex-Dm 600-30 Mg) 1 tab PO BID [facility] Last Admin: 08/03/18 09:07 Dose: 1 tab Home Med (Patient's Own Medication) 5 unit MT TID [facility] Last Admin: 08/03/18 09:08 Dose: 5 unit Isosorbide Mononitrate (Imdur Er) 30 mg PO DAILY [facility] Last Admin: 08/03/18 09:06 Dose: 30 mg Losartan Potassium (Cozaar) 25 mg PO DAILY [facility] Last Admin: 08/03/18 09:06 Dose: 25 mg Methylprednisolone (Solu-Medrol) 30 mg IVP Q12 [facility] Last Admin: 08/03/18 09:10 Dose: 30 mg Metoprolol Succinate (Toprol Xl) 25 mg PO DAILY [facility] Last Admin: 08/03/18 09:10 Dose: 25 mg Multivitamins/Minerals (Therapeutic-M Tab) 1 tab PO DAILY [facility] Last Admin: 08/03/18 09:04 Dose: 1 tab Nicotine (Nicoderm Cq) 1 patch TD DAILY [facility] Last Admin: 08/03/18 09:07 Dose: 1 patch Nitroglycerin (Nitrostat Sl Tab) 0.4 mg SL DAILY PRN PRN Reason: chest pain Octreotide Acetate (Sandostatin) 100 mcg SC Q12 [facility] Last Admin: 08/03/18 09:23 Dose: 100 mcg Promethazine HCl/Dextromethorphan (Phenergan Dm Syrup) 10 ml PO Q6 PRN PRN Reason: Cough Last Admin: 07/31/18 09:12 Dose: 10 ml Sodium Chloride (Sodium Chloride Tab) 1 gm PO BID [facility] Last Admin: 08/03/18 09:05 Dose: 1 gm Trazodone HCl (Desyrel) 100 mg PO HS [facility] Last Admin: 08/02/18 21:45 Dose: 100 mg - Labs Labs: 07/31/18 04:30 07/31/18 04:30 PT 11.1 Seconds (9.8-13.1) 07/29/18 13:30 INR 1.0 07/29/18 13:30 APTT 25.0 Seconds (25.6-37.1) L 07/29/18 13:30 - Respiratory Exam Respiratory Exam: Clear to Ausculation Bilateral - Cardiovascular Exam Cardiovascular Exam: REGULAR RHYTHM, +S1, +S2 - Extremities Exam Additional comments: NO LE EDEMA Assessment and Plan - Assessment and Plan (Free Text) Assessment: CAD WITH OLD AWMI AND NEW AWMI EXTENSION-STABLE AND CHEST PAIN FREE COPD EXACERBATION HYPERTENSION HYPERLIPIDEMIA ANXIETY Plan: CONTINIE LOSARTAN, METOPROLOL, ASPIRIN, CLOPIDOGREL, NITRATES, ATORVASTATIN AND COPD MEDICATIONS FOR TCU
--- NOTE | 2018-08-03 11:04 | CP.PCM.PN ---
Subjective - Date & Time of Evaluation Date of Evaluation: 08/03/18 Time of Evaluation: 06:00 - Subjective Subjective: 68 year old female presenting with shortness of breath, NSTEMI, s/p lovenox injection complicated by abdominal hematoma. Referred for ID eval of pneumonia / COPD IV antibiotic in progress Rocephin/zmax awake alert denies fever chills or chest pain Objective - Vital Signs/Intake and Output Vital Signs (last 24 hours): Temp Pulse Resp BP Pulse Ox 97.9 F 63 20 144/70 98 08/03/18 08:58 08/03/18 09:10 08/03/18 08:58 08/03/18 09:10 08/03/18 08:58 - Medications Medications: Current Medications Acetaminophen (Tylenol 325mg Tab) 650 mg PO Q6 PRN PRN Reason: Headache Last Admin: 07/23/18 22:24 Dose: 650 mg Acetylcysteine (Acetylcysteine 20%) 2 ml INH RBID [facility] Last Admin: 08/03/18 07:52 Dose: 2 ml Albuterol/Ipratropium (Duoneb 3 Mg/0.5 Mg (3 Ml) Ud) 3 ml INH RQ4 [facility] Last Admin: 08/03/18 07:51 Dose: 3 ml Aspirin (Ecotrin) 325 mg PO DAILY [facility] Last Admin: 08/03/18 09:05 Dose: 325 mg Atorvastatin Calcium (Lipitor) 20 mg PO DAILY [facility] Last Admin: 08/03/18 09:07 Dose: 20 mg Budesonide (Pulmicort Respules) 0.25 mg INH RBID [facility] Last Admin: 08/03/18 07:51 Dose: 0.25 mg Clopidogrel Bisulfate (Plavix) 75 mg PO DAILY [facility] Last Admin: 08/03/18 09:05 Dose: 75 mg Cyanocobalamin (Vitamin B12 1000 Mcg/Ml Inj) 1,000 mcg IM Q14D [facility] Last Admin: 07/23/18 10:17 Dose: 1,000 mcg Ergocalciferol (Drisdol 50,000 Intl Units Cap) 1 cap PO MO [facility] Last Admin: 08/03/18 09:05 Dose: 1 cap Fluticasone Propionate (Flonase) 2 spr PRATIBHA HS PRN PRN Reason: Allergy symptoms Last Admin: 07/27/18 01:35 Dose: 2 spr Guaifenesin/Dextromethorphan (Mucinex-Dm 600-30 Mg) 1 tab PO BID [facility] Last Admin: 08/03/18 09:07 Dose: 1 tab Home Med (Patient's Own Medication) 5 unit MT TID [facility] Last Admin: 08/03/18 09:08 Dose: 5 unit Isosorbide Mononitrate (Imdur Er) 30 mg PO DAILY [facility] Last Admin: 08/03/18 09:06 Dose: 30 mg Losartan Potassium (Cozaar) 25 mg PO DAILY [facility] Last Admin: 08/03/18 09:06 Dose: 25 mg Methylprednisolone (Solu-Medrol) 30 mg IVP Q12 [facility] Last Admin: 08/03/18 09:10 Dose: 30 mg Metoprolol Succinate (Toprol Xl) 25 mg PO DAILY [facility] Last Admin: 08/03/18 09:10 Dose: 25 mg Multivitamins/Minerals (Therapeutic-M Tab) 1 tab PO DAILY [facility] Last Admin: 08/03/18 09:04 Dose: 1 tab Nicotine (Nicoderm Cq) 1 patch TD DAILY [facility] Last Admin: 08/03/18 09:07 Dose: 1 patch Nitroglycerin (Nitrostat Sl Tab) 0.4 mg SL DAILY PRN PRN Reason: chest pain Octreotide Acetate (Sandostatin) 100 mcg SC Q12 [facility] Last Admin: 08/03/18 09:23 Dose: 100 mcg Promethazine HCl/Dextromethorphan (Phenergan Dm Syrup) 10 ml PO Q6 PRN PRN Reason: Cough Last Admin: 07/31/18 09:12 Dose: 10 ml Sodium Chloride (Sodium Chloride Tab) 1 gm PO BID [facility] Last Admin: 08/03/18 09:05 Dose: 1 gm Trazodone HCl (Desyrel) 100 mg PO HS [facility] Last Admin: 08/02/18 21:45 Dose: 100 mg - Labs Labs: 07/31/18 04:30 07/31/18 04:30 PT 11.1 Seconds (9.8-13.1) 07/29/18 13:30 INR 1.0 07/29/18 13:30 APTT 25.0 Seconds (25.6-37.1) L 07/29/18 13:30 - Constitutional Appears: Non-toxic, Chronically Ill - Head Exam Head Exam: NORMOCEPHALIC - Eye Exam Eye Exam: absent: Scleral icterus - ENT Exam ENT Exam: Mucous Membranes Dry - Neck Exam Neck Exam: absent: Lymphadenopathy - Respiratory Exam Respiratory Exam: Decreased Breath Sounds - Cardiovascular Exam Cardiovascular Exam: REGULAR RHYTHM - GI/Abdominal Exam GI & Abdominal Exam: Distended, Soft - Rectal Exam Rectal Exam: Deferred - Exam Exam: NORMAL INSPECTION - Extremities Exam Extremities Exam: absent: Pedal Edema - Back Exam Back Exam: absent: CVA tenderness (L), CVA tenderness (R) - Neurological Exam Neurological Exam: Alert, Awake - Psychiatric Exam Psychiatric exam: Depressed Assessment and Plan (1) Anxiety disorder Status: Acute (2) COPD exacerbation Status: Acute (3) Hematoma Status: Acute (4) Hyponatremia Status: Acute (5) Influenza A H1N1 infection Status: Acute (6) Leukocytosis Status: Acute (7) NSTEMI (non-ST elevated myocardial infarction) Status: Acute (8) Chronic congestive heart failure Status: Chronic - Assessment and Plan (Free Text) Assessment: 68 year old female presenting with shortness of breath, NSTEMI, s/p lovenox injection complicated by abdominal hematoma. Referred for ID eval of pneumonia / COPD IV antibiotic in progress d/c to TCU
[2018-08-03] MEDS ORDERED: Azithromycin 500 MG in Sodium Chloride 0.9% 250 ML IVPB SCH (12:15)
[2018-08-03 12:36] LABS: HEMOGLOBIN 9.9 g/dL (12.0-16.0); MEAN CORPUSCULAR HEMOGLOBIN 32.5 pg (27.0-31.0); MEAN CORPUSCULAR HGB CONC 33.2 g/dL (33.0-37.0); RBC 3.04 Mil/uL (3.80-5.20); RED CELL DISTRIBUTION WIDTH 15.4 % (11.5-14.5); WHITE BLOOD COUNT 16.7 K/uL (4.8-10.8)
[2018-08-03 13:26] VITALS: TEMP 97.8
[2018-08-03 16:57] VITALS: BP 126/69; PULSE 63; O2SAT 97
--- NOTE | 2018-08-03 18:14 | CP.PCM.PN ---
Objective - Vital Signs/Intake and Output Vital Signs (last 24 hours): Temp Pulse Resp BP Pulse Ox 97.8 F 63 20 126/69 97 08/03/18 16:56 08/03/18 16:56 08/03/18 16:56 08/03/18 16:56 08/03/18 16:56 - Medications Medications: Current Medications Acetaminophen (Tylenol 325mg Tab) 650 mg PO Q6 PRN PRN Reason: Headache Last Admin: 07/23/18 22:24 Dose: 650 mg Acetylcysteine (Acetylcysteine 20%) 2 ml INH RBID [facility] Last Admin: 08/03/18 07:52 Dose: 2 ml Albuterol/Ipratropium (Duoneb 3 Mg/0.5 Mg (3 Ml) Ud) 3 ml INH RQ4 [facility] Last Admin: 08/03/18 15:17 Dose: 3 ml Aspirin (Ecotrin) 325 mg PO DAILY [facility] Last Admin: 08/03/18 09:05 Dose: 325 mg Atorvastatin Calcium (Lipitor) 20 mg PO DAILY [facility] Last Admin: 08/03/18 09:07 Dose: 20 mg Budesonide (Pulmicort Respules) 0.25 mg INH RBID [facility] Last Admin: 08/03/18 07:51 Dose: 0.25 mg Clopidogrel Bisulfate (Plavix) 75 mg PO DAILY [facility] Last Admin: 08/03/18 09:05 Dose: 75 mg Cyanocobalamin (Vitamin B12 1000 Mcg/Ml Inj) 1,000 mcg IM Q14D [facility] Last Admin: 07/23/18 10:17 Dose: 1,000 mcg Ergocalciferol (Drisdol 50,000 Intl Units Cap) 1 cap PO MO [facility] Last Admin: 08/03/18 09:05 Dose: 1 cap Fluticasone Propionate (Flonase) 2 spr PRATIBHA HS PRN PRN Reason: Allergy symptoms Last Admin: 07/27/18 01:35 Dose: 2 spr Guaifenesin/Dextromethorphan (Mucinex-Dm 600-30 Mg) 1 tab PO BID [facility] Last Admin: 08/03/18 17:51 Dose: 1 tab Home Med (Patient's Own Medication) 5 unit MT TID [facility] Last Admin: 08/03/18 13:44 Dose: 5 unit Ceftriaxone Sodium 1 gm/ (Sodium Chloride) 100 mls @ 100 mls/hr IVPB DAILY [facility]; Protocol Last Admin: 08/03/18 13:45 Dose: Not Given Azithromycin 500 mg/ Sodium (Chloride) 250 mls @ 250 mls/hr IVPB DAILY [facility]; Protocol Last Admin: 08/03/18 13:38 Dose: 250 mls/hr Isosorbide Mononitrate (Imdur Er) 30 mg PO DAILY [facility] Last Admin: 08/03/18 09:06 Dose: 30 mg Losartan Potassium (Cozaar) 25 mg PO DAILY [facility] Last Admin: 08/03/18 09:06 Dose: 25 mg Methylprednisolone (Solu-Medrol) 30 mg IVP Q12 [facility] Last Admin: 08/03/18 09:10 Dose: 30 mg Metoprolol Succinate (Toprol Xl) 25 mg PO DAILY [facility] Last Admin: 08/03/18 09:10 Dose: 25 mg Multivitamins/Minerals (Therapeutic-M Tab) 1 tab PO DAILY [facility] Last Admin: 08/03/18 09:04 Dose: 1 tab Nicotine (Nicoderm Cq) 1 patch TD DAILY [facility] Last Admin: 08/03/18 09:07 Dose: 1 patch Nitroglycerin (Nitrostat Sl Tab) 0.4 mg SL DAILY PRN PRN Reason: chest pain Octreotide Acetate (Sandostatin) 100 mcg SC Q12 [facility] Last Admin: 08/03/18 09:23 Dose: 100 mcg Ondansetron HCl (Zofran Inj) 4 mg IVP Q6 PRN PRN Reason: Nausea/Vomiting Last Admin: 08/03/18 16:00 Dose: 4 mg Promethazine HCl/Dextromethorphan (Phenergan Dm Syrup) 10 ml PO Q6 PRN PRN Reason: Cough Last Admin: 07/31/18 09:12 Dose: 10 ml Sodium Chloride (Sodium Chloride Tab) 1 gm PO BID [facility] Last Admin: 08/03/18 09:05 Dose: 1 gm Trazodone HCl (Desyrel) 100 mg PO HS [facility] Last Admin: 08/02/18 21:45 Dose: 100 mg - Labs Labs: 08/03/18 12:25 07/31/18 04:30 PT 11.1 Seconds (9.8-13.1) 07/29/18 13:30 INR 1.0 07/29/18 13:30 APTT 25.0 Seconds (25.6-37.1) L 07/29/18 13:30 Assessment and Plan (1) Hyponatremia Status: Acute (2) Chronic congestive heart failure Status: Chronic (3) Hypertension Status: Chronic
[2018-08-03 19:33] LABS: BLOOD UREA NITROGEN 27 mg/dl (7-17); GFR NON-AFRICAN AMERICAN > 60
== END 2018-08-03 19:20 | DRG 280 ==
LOC: H.ER 00:02 → H.ERHOLD 01:53 → H.TEL 04:33
PROVIDERS: ADMIT Internal Medicine; ATTEND Internal Medicine
PROC: 30233N1 Transfusion of Nonautologous Red Blood Cells into Peripheral Vein, Percutaneous Approach (ICD-10-PCS; principal; 2018-07-29)
DX: I21.09 ST elevation (STEMI) myocardial infarction involving other coronary artery of anterior wall (principal); I50.23 Acute on chronic systolic (congestive) heart failure; J44.1 Chronic obstructive pulmonary disease with (acute) exacerbation; E87.1 Hypo-osmolality and hyponatremia; B37.0 Candidal stomatitis; D62 Acute posthemorrhagic anemia; J10.1 Influenza due to other identified influenza virus with other respiratory manifestations; I11.0 Hypertensive heart disease with heart failure; I25.10 Atherosclerotic heart disease of native coronary artery without angina pectoris; M79.81 Nontraumatic hematoma of soft tissue; T45.515A Adverse effect of anticoagulants, initial encounter; T17.990A Other foreign object in respiratory tract, part unspecified in causing asphyxiation, initial encounter; D72.828 Other elevated white blood cell count; D63.8 Anemia in other chronic diseases classified elsewhere; M79.7 Fibromyalgia; E78.00 Pure hypercholesterolemia, unspecified; E78.5 Hyperlipidemia, unspecified; F41.9 Anxiety disorder, unspecified; Z93.2 Ileostomy status; Z93.3 Colostomy status; Z66 Do not resuscitate; F17.210 Nicotine dependence, cigarettes, uncomplicated; I25.2 Old myocardial infarction; Z95.5 Presence of coronary angioplasty implant and graft; Z88.2 Allergy status to sulfonamides; Z90.710 Acquired absence of both cervix and uterus; Y92.239 Unspecified place in hospital as the place of occurrence of the external cause

== ENCOUNTER 2018-08-03 15:14 | Inpatient (IN) | payer OTHER ==
[2018-08-03 18:01] VITALS: BMI 19.0
[2018-08-04] MEDS: Acetylcysteine 20% Inhal Soln (4ml) INH SCH ×4 (00:17→19:11)
[2018-08-04] MEDS: Albuterol-Ipratrop 3 mg / 0.5 (3 ml) UD IH SCH ×7 (00:17→23:59)
[2018-08-04] MEDS: Ergocalciferol 50,000 Intl Units Cap PO SCH (00:50)
[2018-08-04] MEDS: MethylPREDNISolone 40 mg Vial IVP SCH ×3 (00:51→21:21)
[2018-08-04 05:51] LABS: HEMOGLOBIN 10.7 g/dL (12.0-16.0); MEAN CELL VOLUME 97.4 fl (81.0-99.0); MEAN CORPUSCULAR HEMOGLOBIN 32.2 pg (27.0-31.0); MEAN CORPUSCULAR HGB CONC 33.1 g/dL (33.0-37.0); RBC 3.32 Mil/uL (3.80-5.20); RED CELL DISTRIBUTION WIDTH 15.3 % (11.5-14.5); WHITE BLOOD COUNT 17.5 K/uL (4.8-10.8)
[2018-08-04 06:00] LABS: ALBUMIN 2.6 g/dL (3.5-5.0); ALT/SGPT 59 U/L (9-52); AST/SGOT 39 U/L (14-36); BLOOD UREA NITROGEN 25 mg/dl (7-17); CALCIUM 9.2 mg/dL (8.4-10.2); GFR NON-AFRICAN AMERICAN > 60
[2018-08-04] MEDS: Metoprolol Succinate 25 mg XL Tab PO SCH (08:51)
[2018-08-04] MEDS: Multivitamin With Minerals Tab PO SCH (08:51)
[2018-08-04] MEDS: Aspirin 325 mg EC Tablets PO SCH (08:51)
[2018-08-04] MEDS: MAGIC MOUTHWASH MT SCH ×3 (08:52→16:41)
[2018-08-04] MEDS ORDERED: BUDESONIDE 0.25 MG INH SCH (09:00)
[2018-08-04] MEDS ORDERED: Multivitamin With Minerals Tab PO SCH (09:00)
[2018-08-04] MEDS ORDERED: FOLIC ACID PO SCH (09:00)
[2018-08-04] MEDS ORDERED: IRON PO SCH (09:00)
[2018-08-04] MEDS ORDERED: MULTIVITAMIN PO SCH (09:00)
[2018-08-04] MEDS ORDERED: guaiFENesin-DM 600-30 mg ER Tab PO SCH (09:00)
[2018-08-04] MEDS: Budesonide 0.25 mg/2 ml Inhal Susp UD INH SCH ×2 (09:22→09:23)
--- NOTE | 2018-08-04 11:36 | CP.PCM.CON ---
History of Present Illness - History of Present Illness History of Present Illness: THE PATIENT IS A 68 YEAR OLD FEMALE WHO WAS JUST ADMITTED TO TCU FROM AND I WAS ASKED TO FOLLOW HER. SHE WAS ADMITTED TO FOR ACUTE EXACERBATION OF COPD AND INFLUENZA. SHE ALSO HAS CAD AN HAD AN AWMI SEVERAL MONTHS AGO AND HAS AN EXTENSION OF HER AWMI ON THE ADMISSION ALSO. SHE IS STABLE AND CHEST PAIN FREE AT THE PRESENT TIME. SHE HAD A CARDIAC CATH SEVERAL MONTHS AGO FOLLOWING HER ORIGINAL AWMI AND SHE LUCKILY HAD DISSOLVED THE LAD CLOT AND DIDN'T NEED A STENT AND THE OTHER CORONARY ARTERIES WERE GOOD ALSO. THIS TIME WE ADVISED HER TO HAVE A REPEAT CARDIAC CATH AND SHE DECLINED OPTING FOR ONLY CONSERVATIVE MEDICAL TREATMENT AND SHE IS A DNR AND DNI. SHE ALSO HAS HYPERTENSION, HYPERLIPIDEMIA, CHRONIC HYPONATREMIA AND ANXIETY. SHE WAS DISCHARGED TO TCU DUE TO EXTREME DECONDITIONING PRIOR TO GOING HOME AND STATES SHE IS NOT STRONG ENOUGH TO AMBULATE ON HER OWN AT THE PRESENT TIME. Past Patient History - Past Medical History & Family History Past Medical History?: Yes - Past Social History Smoking Status: Current Some Days Smoker - CARDIAC Hx Hypercholesterolemia: Yes Hx Hypertension: Yes - PULMONARY Hx Chronic Obstructive Pulmonary Disease (COPD): Yes Hx Emphysema: Yes Hx Respiratory Tract Infection: Yes - NEUROLOGICAL Hx Neurological Disorder: Yes Other/Comment: FIBROMYALGIA - HEENT Hx HEENT Problems: No - RENAL Hx Chronic Kidney Disease: No - ENDOCRINE/METABOLIC Hx Endocrine Disorders: No - HEMATOLOGICAL/ONCOLOGICAL Hx Anemia: Yes Hx Blood Transfusions: Yes Hx Blood Transfusion Reaction: No Hx Bruising: Yes Hx Human Immunodeficiency Virus (HIV): No - INTEGUMENTARY Hx Dermatological Problems: No - MUSCULOSKELETAL/RHEUMATOLOGICAL Hx Falls: No - GASTROINTESTINAL Hx Gastrointestinal Disorders: Yes Hx Ileostomy: Yes - GENITOURINARY/GYNECOLOGICAL Hx Genitourinary Disorders: No - PSYCHIATRIC Hx Substance Use: No - SURGICAL HISTORY Hx Cholecystectomy: Yes - ANESTHESIA Hx Anesthesia: Yes Hx Anesthesia Reactions: No Hx Malignant Hyperthermia: No Meds Allergies/Adverse Reactions: Allergies Allergy/AdvReac Type Severity Reaction Status Date / Time Sulfa (Sulfonamide Allergy crystallized Verified 08/03/18 18:01 Antibiotics) kidneys - Medications Medications: Current Medications Acetaminophen (Tylenol 325mg Tab) 650 mg PO Q6 PRN PRN Reason: Headache Acetylcysteine (Acetylcysteine 20%) 4 ml INH BID [facility] Last Admin: 08/04/18 07:40 Dose: 4 ml Albuterol/Ipratropium (Duoneb 3 Mg/0.5 Mg (3 Ml) Ud) 3 ml IH RQ4 [facility] Last Admin: 08/04/18 11:10 Dose: 3 ml Alprazolam (Xanax) 0.5 mg PO Q8 [facility] Last Admin: 08/04/18 08:57 Dose: 0.5 mg Aspirin (Ecotrin) 325 mg PO DAILY [facility] Last Admin: 08/04/18 08:51 Dose: 325 mg Atorvastatin Calcium (Lipitor) 20 mg PO DAILY [facility] Last Admin: 08/04/18 08:51 Dose: 20 mg Budesonide (Pulmicort Respules) 0.25 mg INH RBID [facility] Budesonide (Pulmicort Respules) 0.25 mg INH RBID [facility] Clopidogrel Bisulfate (Plavix) 75 mg PO DAILY [facility] Last Admin: 08/04/18 08:51 Dose: 75 mg Cyanocobalamin (Vitamin B12 1000 Mcg/Ml Inj) 1,000 mcg IM Q14D [facility] Last Admin: 08/04/18 00:52 Dose: Not Given Ergocalciferol (Drisdol 50,000 Intl Units Cap) 1 cap PO MO [facility] Last Admin: 08/04/18 00:50 Dose: Not Given Fluconazole (Diflucan) 100 mg PO DAILY [facility]; Protocol Last Admin: 08/04/18 08:50 Dose: 100 mg Fluticasone Propionate (Flonase) 2 spr PRATIBHA HS PRN PRN Reason: Allergy symptoms Last Admin: 08/04/18 08:53 Dose: 2 spr Guaifenesin/Dextromethorphan (Mucinex-Dm 600-30 Mg) 1 tab PO BID [facility] Last Admin: 08/04/18 08:50 Dose: 1 tab Home Med (Patient's Own Medication) 5 unit MT TID [facility] Last Admin: 08/04/18 08:52 Dose: 5 unit Hydromorphone HCl (Dilaudid) 0.5 mg IVP Q4 PRN PRN Reason: Pain, severe (8-10) Last Admin: 08/04/18 00:33 Dose: 0.5 mg Azithromycin 500 mg/ Sodium (Chloride) 250 mls @ 250 mls/hr IVPB DAILY@1700 [facility] Ceftriaxone Sodium 1 gm/ (Sodium Chloride) 100 mls @ 100 mls/hr IVPB DAILY@1700 [facility] Isosorbide Mononitrate (Imdur Er) 30 mg PO DAILY [facility] Last Admin: 08/04/18 08:51 Dose: 30 mg Losartan Potassium (Cozaar) 25 mg PO DAILY [facility] Last Admin: 08/04/18 08:50 Dose: 25 mg Methylprednisolone (Solu-Medrol) 30 mg IVP Q12 [facility] Last Admin: 08/04/18 08:52 Dose: 30 mg Metoprolol Succinate (Toprol Xl) 25 mg PO DAILY [facility] Last Admin: 08/04/18 08:51 Dose: 25 mg Multivitamins/Minerals (Therapeutic-M Tab) 1 tab PO DAILY [facility] Last Admin: 08/04/18 08:51 Dose: 1 tab Nicotine (Nicoderm Cq) 1 patch TD DAILY [facility] Last Admin: 08/04/18 08:50 Dose: 1 patch Nitroglycerin (Nitrostat Sl Tab) 0.4 mg SL DAILY [facility] Octreotide Acetate (Sandostatin) 100 mcg SC Q12 [facility] Last Admin: 08/04/18 08:56 Dose: 100 mcg Ondansetron HCl (Zofran Inj) 4 mg IVP Q6 PRN PRN Reason: Nausea/Vomiting Promethazine HCl/Dextromethorphan (Phenergan Dm Syrup) 10 ml PO Q6 PRN PRN Reason: Cough Sodium Chloride (Sodium Chloride Tab) 1 gm PO DAILY [facility] Last Admin: 08/04/18 08:50 Dose: 1 gm Trazodone HCl (Desyrel) 100 mg PO HS [facility] Last Admin: 08/04/18 00:40 Dose: 100 mg Zolpidem Tartrate (Ambien) 5 mg PO HS PRN PRN Reason: Insomnia Physical Exam - Respiratory Exam Respiratory Exam: Clear to Auscultation Bilateral - Cardiovascular Exam Cardiovascular Exam: REGULAR RHYTHM, +S1, +S2 - Extremities Exam Additional comments: NOLOWER EXTREMITY EDEMA Results - Vital Signs Recent Vital Signs: Last Vital Signs Temp 97.8 F 08/04/18 08:01 Pulse 76 08/04/18 08:58 Resp 18 08/04/18 08:01 BP 155/56 H 08/04/18 08:51 Pulse Ox 92 L 08/04/18 08:58 - Labs Result Diagrams: 08/04/18 05:25 08/04/18 05:25 Labs: Laboratory Results - last 24 hr 08/04/18 08/04/18 05:25 05:25 WBC 17.5 H RBC 3.32 L Hgb 10.7 L Hct 32.3 L MCV 97.4 MCH 32.2 H MCHC 33.1 RDW 15.3 H Plt Count 307 Sodium 129 L Potassium 4.7 Chloride 92 L Carbon Dioxide 30 Anion Gap 12 BUN 25 H Creatinine 0.9 Est GFR ( Amer) > 60 Est GFR (Non-Af Amer) > 60 Random Glucose 119 H Calcium 9.2 Total Bilirubin 0.5 AST 39 H ALT 59 H D Alkaline Phosphatase 71 Total Protein 5.3 L Albumin 2.6 L Globulin 2.7 Albumin/Globulin Ratio 1.0 Assessment & Plan - Assessment and Plan (Free Text) Assessment: DECONDITIONING CAD COPD HYPERTENSION Plan: CONTINUE LOSARTAN, METOPROLOL, ASPIRIN, CLOPIDOGREL, NITRATES, ATORVASTATIN, ANTIBIOTICS AND COPD MEDICATIONS CONTINUE ARCELIA FOR DECONDITIONING
[2018-08-04 11:44] LABS: OSMOLALITY,URINE 620 mosm/kg (300-1000)
[2018-08-04] MEDS: Azithromycin 500 MG in Sodium Chloride 0.9% 250 ML IVPB SCH (16:42)
[2018-08-04] MEDS ORDERED: cefTRIAXone IV 1 gm in Dextros 50 ML BAG IVPB SCH (17:00)
[2018-08-04] MEDS: guaiFENesin-DM 600-30 mg ER Tab PO SCH (21:22)
--- NOTE | 2018-08-04 22:51 | CP.PCM.CON ---
History of Present Illness - History of Present Illness History of Present Illness: 68 yo F w of CAD status post stent last year, HTN, COPD, Subclavian steal syndrome, anemia, s/p ileostomy creation, and chronic hyponatremia, presented to [facility] earlier this month with progressive shortness of breath; was found to have NSTEMI with concern for anterior wall AZ extension; however, she refused cardiac intervention due to previous complications that she had with cardiac cath; was found to be hyponatremic with serum Na 123 for which nephrology was consulted; Patient's hyponatremia was thought to be acute on chronic secondary to volume depletion in the setting of ostomy losses; patient was placed on increased sodium diet and placed on sodium chloride tabs; was also given single dose of tolvaptan; serum Na improved considerably but remained mildly low; Patient admitted to TCU yesterday; reports breathing improved; still with difficulty swallowing due to oral thrush; anxiety is improved; emptied ostomy twice today already; Past Patient History - Past Medical History & Family History Past Medical History?: Yes - Past Social History Smoking Status: Current Some Days Smoker - CARDIAC Hx Hypercholesterolemia: Yes Hx Hypertension: Yes - PULMONARY Hx Chronic Obstructive Pulmonary Disease (COPD): Yes Hx Emphysema: Yes Hx Respiratory Tract Infection: Yes - NEUROLOGICAL Hx Neurological Disorder: Yes Other/Comment: FIBROMYALGIA - HEENT Hx HEENT Problems: No - RENAL Hx Chronic Kidney Disease: No - ENDOCRINE/METABOLIC Hx Endocrine Disorders: No - HEMATOLOGICAL/ONCOLOGICAL Hx Anemia: Yes Hx Blood Transfusions: Yes Hx Blood Transfusion Reaction: No Hx Bruising: Yes Hx Human Immunodeficiency Virus (HIV): No - INTEGUMENTARY Hx Dermatological Problems: No - MUSCULOSKELETAL/RHEUMATOLOGICAL Hx Falls: No - GASTROINTESTINAL Hx Gastrointestinal Disorders: Yes Hx Ileostomy: Yes - GENITOURINARY/GYNECOLOGICAL Hx Genitourinary Disorders: No - PSYCHIATRIC Hx Substance Use: No - SURGICAL HISTORY Hx Cholecystectomy: Yes - ANESTHESIA Hx Anesthesia: Yes Hx Anesthesia Reactions: No Hx Malignant Hyperthermia: No Meds Allergies/Adverse Reactions: Allergies Allergy/AdvReac Type Severity Reaction Status Date / Time Sulfa (Sulfonamide Allergy crystallized Verified 08/03/18 18:01 Antibiotics) kidneys - Medications Medications: Current Medications Acetaminophen (Tylenol 325mg Tab) 650 mg PO Q6 PRN PRN Reason: Headache Acetylcysteine (Acetylcysteine 20%) 4 ml INH RBID [facility] Last Admin: 08/04/18 19:11 Dose: 4 ml Albuterol/Ipratropium (Duoneb 3 Mg/0.5 Mg (3 Ml) Ud) 3 ml IH RQ4 [facility] Last Admin: 08/04/18 19:12 Dose: 3 ml Alprazolam (Xanax) 0.5 mg PO Q8 [facility] Last Admin: 08/04/18 16:41 Dose: 0.5 mg Aspirin (Ecotrin) 325 mg PO DAILY [facility] Last Admin: 08/04/18 08:51 Dose: 325 mg Atorvastatin Calcium (Lipitor) 20 mg PO HS [facility] Budesonide (Pulmicort Respules) 0.25 mg INH RBID [facility] Last Admin: 08/04/18 09:22 Dose: Not Given Budesonide (Pulmicort Respules) 0.25 mg INH RBID [facility] Last Admin: 08/04/18 09:23 Dose: Not Given Clopidogrel Bisulfate (Plavix) 75 mg PO DAILY [facility] Last Admin: 08/04/18 08:51 Dose: 75 mg Cyanocobalamin (Vitamin B12 1000 Mcg/Ml Inj) 1,000 mcg IM Q14D [facility] Last Admin: 08/04/18 00:52 Dose: Not Given Ergocalciferol (Drisdol 50,000 Intl Units Cap) 1 cap PO MO [facility] Last Admin: 08/04/18 00:50 Dose: Not Given Fluconazole (Diflucan) 100 mg PO DAILY [facility]; Protocol Last Admin: 08/04/18 08:50 Dose: 100 mg Fluticasone Propionate (Flonase) 2 spr PRATIBHA HS PRN PRN Reason: Allergy symptoms Last Admin: 08/04/18 08:53 Dose: 2 spr Guaifenesin/Dextromethorphan (Mucinex-Dm 600-30 Mg) 1 tab PO Q12 [facility] Last Admin: 08/04/18 21:22 Dose: 1 tab Home Med (Patient's Own Medication) 5 unit MT TID [facility] Last Admin: 08/04/18 16:41 Dose: 5 unit Hydromorphone HCl (Dilaudid) 0.5 mg IVP Q4 PRN PRN Reason: Pain, severe (8-10) Last Admin: 08/04/18 00:33 Dose: 0.5 mg Azithromycin 500 mg/ Sodium (Chloride) 250 mls @ 250 mls/hr IVPB DAILY@1700 [facility] Last Admin: 08/04/18 16:42 Dose: 250 mls/hr Ceftriaxone Sodium 1 gm/ (Sodium Chloride) 100 mls @ 100 mls/hr IVPB DAILY@1700 [facility] Last Admin: 08/04/18 16:28 Dose: 100 mls/hr Isosorbide Mononitrate (Imdur Er) 30 mg PO DAILY [facility] Last Admin: 08/04/18 08:51 Dose: 30 mg Losartan Potassium (Cozaar) 25 mg PO DAILY [facility] Last Admin: 08/04/18 08:50 Dose: 25 mg Methylprednisolone (Solu-Medrol) 30 mg IVP Q12 [facility] Last Admin: 08/04/18 21:21 Dose: 30 mg Metoprolol Succinate (Toprol Xl) 25 mg PO DAILY [facility] Last Admin: 08/04/18 08:51 Dose: 25 mg Multivitamins/Minerals (Therapeutic-M Tab) 1 tab PO DAILY [facility] Last Admin: 08/04/18 08:51 Dose: 1 tab Nicotine (Nicoderm Cq) 1 patch TD DAILY [facility] Last Admin: 08/04/18 08:50 Dose: 1 patch Nitroglycerin (Nitrostat Sl Tab) 0.4 mg SL DAILY PRN PRN Reason: angina Octreotide Acetate (Sandostatin) 100 mcg SC Q12 [facility] Last Admin: 08/04/18 21:25 Dose: 100 mcg Ondansetron HCl (Zofran Inj) 4 mg IVP Q6 PRN PRN Reason: Nausea/Vomiting Promethazine HCl/Dextromethorphan (Phenergan Dm Syrup) 10 ml PO Q6 PRN PRN Reason: Cough Sodium Chloride (Sodium Chloride Tab) 1 gm PO DAILY [facility] Last Admin: 08/04/18 08:50 Dose: 1 gm Trazodone HCl (Desyrel) 100 mg PO HS [facility] Last Admin: 08/04/18 21:24 Dose: 100 mg Zolpidem Tartrate (Ambien) 5 mg PO HS PRN PRN Reason: Insomnia Results - Vital Signs Recent Vital Signs: Last Vital Signs Temp 98.1 F 08/04/18 19:39 Pulse 71 08/04/18 19:39 Resp 20 08/04/18 19:39 BP 151/91 H 08/04/18 19:39 Pulse Ox 96 08/04/18 19:39 - Labs Result Diagrams: 08/04/18 05:25 08/04/18 05:25 Labs: Laboratory Results - last 24 hr 08/04/18 08/04/18 08/04/18 05:25 05:25 11:00 WBC 17.5 H RBC 3.32 L Hgb 10.7 L Hct 32.3 L MCV 97.4 MCH 32.2 H MCHC 33.1 RDW 15.3 H Plt Count 307 Sodium 129 L Potassium 4.7 Chloride 92 L Carbon Dioxide 30 Anion Gap 12 BUN 25 H Creatinine 0.9 Est GFR ( Amer) > 60 Est GFR (Non-Af Amer) > 60 Random Glucose 119 H Calcium 9.2 Total Bilirubin 0.5 AST 39 H ALT 59 H D Alkaline Phosphatase 71 Total Protein 5.3 L Albumin 2.6 L Globulin 2.7 Albumin/Globulin Ratio 1.0 Urine Osmolality 620 Ur Random Sodium 124 Assessment & Plan (1) Hyponatremia Assessment and Plan: Appears to be multifactorial; has continued impetus for volume depletion due to ostomy losses (as was suggested by low urine Na); currently, however, is volume replete as suggested by elevated BP and increased urine sodium; urine osm inappropriately elevated and suggestive of SIADH; -continue salt tabs 1 g daily; -will benefit from low dose lasix 20 mg PO every other day (although patient has refused this); -avoid NSAIDS (can potentiate the effect of ADH); -PO fluid restriction <1.5 L daily; Status: Chronic Priority: High (2) CHF (congestive heart failure) Assessment and Plan: With systolic dysfunction; currently appears euvolemic on exam, no sign of being in failure; -continue B-jag ARB; diuretics prn; Status: Chronic (3) Hypertension Assessment and Plan: BP elevated lately; on 3 meds though not on standing diuretic; on increased Na diet and salt tabs due to hyponatremia, will try to encourage her to take diuretic at least every other day (lasix as above); Status: Chronic Priority: Low
[2018-08-05] MEDS: Albuterol-Ipratrop 3 mg / 0.5 (3 ml) UD IH SCH ×7 (04:26→23:47)
[2018-08-05] MEDS: Promethazine DM 12.5 mg-30 mg/10 ml Syrup PO PRN ×2 (05:22→18:09)
[2018-08-05] MEDS: Acetylcysteine 20% Inhal Soln (4ml) INH SCH ×2 (07:32→19:13)
[2018-08-05] MEDS: Budesonide 0.25 mg/2 ml Inhal Susp UD INH SCH ×3 (07:32→19:13)
[2018-08-05] MEDS: Aspirin 325 mg EC Tablets PO SCH (08:24)
[2018-08-05] MEDS: guaiFENesin-DM 600-30 mg ER Tab PO SCH ×2 (08:25→21:16)
[2018-08-05] MEDS: MAGIC MOUTHWASH MT SCH ×4 (08:25→22:17)
[2018-08-05] MEDS: MethylPREDNISolone 40 mg Vial IVP SCH ×2 (08:25→21:16)
[2018-08-05] MEDS: Metoprolol Succinate 25 mg XL Tab PO SCH (08:26)
[2018-08-05] MEDS: Multivitamin With Minerals Tab PO SCH (08:27)
--- NOTE | 2018-08-05 08:27 | CP.PCM.CON ---
History of Present Illness - History of Present Illness History of Present Illness: 68 YR OLD FEMALE WITH HISTORY OF COPD WHO IS WELL KNOWN TO ME.SHE WAS ADMITTED TO TELEMETRY THEN TRANSFERRED TO THE [facility]ITIONAL [facility]ARE UNIT.SHE WAS ADMITTED WITH COPD EXACERBATION ,PNEUMONIA/FLU AND ACUTE NSTEMI WITH SEVERE ANXIETY. SHE CONTINUES TO SMOKE CIGARETTES AT HOME. SYMPTOMS OF COPD HAVE IMPROVED SINCE ADMISSION. Past Patient History - Past Medical History & Family History Past Medical History?: Yes - Past Social History Smoking Status: Current Some Days Smoker - CARDIAC Hx Hypercholesterolemia: Yes Hx Hypertension: Yes - PULMONARY Hx Chronic Obstructive Pulmonary Disease (COPD): Yes Hx Emphysema: Yes Hx Respiratory Tract Infection: Yes - NEUROLOGICAL Hx Neurological Disorder: Yes Other/Comment: FIBROMYALGIA - HEENT Hx HEENT Problems: No - RENAL Hx Chronic Kidney Disease: No - ENDOCRINE/METABOLIC Hx Endocrine Disorders: No - HEMATOLOGICAL/ONCOLOGICAL Hx Anemia: Yes Hx Blood Transfusions: Yes Hx Blood Transfusion Reaction: No Hx Bruising: Yes Hx Human Immunodeficiency Virus (HIV): No - INTEGUMENTARY Hx Dermatological Problems: No - MUSCULOSKELETAL/RHEUMATOLOGICAL Hx Falls: No - GASTROINTESTINAL Hx Gastrointestinal Disorders: Yes Hx Ileostomy: Yes - GENITOURINARY/GYNECOLOGICAL Hx Genitourinary Disorders: No - PSYCHIATRIC Hx Substance Use: No - SURGICAL HISTORY Hx Cholecystectomy: Yes - ANESTHESIA Hx Anesthesia: Yes Hx Anesthesia Reactions: No Hx Malignant Hyperthermia: No Meds Allergies/Adverse Reactions: Allergies Allergy/AdvReac Type Severity Reaction Status Date / Time Sulfa (Sulfonamide Allergy crystallized Verified 08/03/18 18:01 Antibiotics) kidneys - Medications Medications: Current Medications Acetaminophen (Tylenol 325mg Tab) 650 mg PO Q6 PRN PRN Reason: Headache Last Admin: 08/05/18 05:25 Dose: 650 mg Acetylcysteine (Acetylcysteine 20%) 4 ml INH RBID [facility] Last Admin: 08/05/18 07:32 Dose: 4 ml Albuterol/Ipratropium (Duoneb 3 Mg/0.5 Mg (3 Ml) Ud) 3 ml IH RQ4 [facility] Last Admin: 08/05/18 07:32 Dose: 3 ml Alprazolam (Xanax) 0.5 mg PO Q8@0600,1400,2200 [facility] Last Admin: 08/05/18 05:24 Dose: 0.5 mg Aspirin (Ecotrin) 325 mg PO DAILY [facility] Last Admin: 08/04/18 08:51 Dose: 325 mg Atorvastatin Calcium (Lipitor) 20 mg PO HS [facility] Last Admin: 08/05/18 00:06 Dose: 20 mg Budesonide (Pulmicort Respules) 0.25 mg INH RBID [facility] Last Admin: 08/05/18 07:32 Dose: 0.25 mg Budesonide (Pulmicort Respules) 0.25 mg INH RBID [facility] Last Admin: 08/04/18 09:23 Dose: Not Given Clopidogrel Bisulfate (Plavix) 75 mg PO DAILY [facility] Last Admin: 08/04/18 08:51 Dose: 75 mg Cyanocobalamin (Vitamin B12 1000 Mcg/Ml Inj) 1,000 mcg IM Q14D [facility] Last Admin: 08/04/18 00:52 Dose: Not Given Ergocalciferol (Drisdol 50,000 Intl Units Cap) 1 cap PO MO [facility] Last Admin: 08/04/18 00:50 Dose: Not Given Fluconazole (Diflucan) 100 mg PO DAILY [facility]; Protocol Last Admin: 08/04/18 08:50 Dose: 100 mg Fluticasone Propionate (Flonase) 2 spr PRATIBHA HS PRN PRN Reason: Allergy symptoms Last Admin: 08/04/18 08:53 Dose: 2 spr Guaifenesin/Dextromethorphan (Mucinex-Dm 600-30 Mg) 1 tab PO Q12 [facility] Last Admin: 08/04/18 21:22 Dose: 1 tab Home Med (Patient's Own Medication) 5 unit MT TID [facility] Last Admin: 08/04/18 16:41 Dose: 5 unit Hydromorphone HCl (Dilaudid) 0.5 mg IVP Q4 PRN PRN Reason: Pain, severe (8-10) Last Admin: 08/04/18 00:33 Dose: 0.5 mg Azithromycin 500 mg/ Sodium (Chloride) 250 mls @ 250 mls/hr IVPB DAILY@1700 [facility] Last Admin: 08/04/18 16:42 Dose: 250 mls/hr Ceftriaxone Sodium 1 gm/ (Sodium Chloride) 100 mls @ 100 mls/hr IVPB DAILY@1700 [facility] Last Admin: 08/04/18 16:28 Dose: 100 mls/hr Isosorbide Mononitrate (Imdur Er) 30 mg PO DAILY [facility] Last Admin: 08/04/18 08:51 Dose: 30 mg Losartan Potassium (Cozaar) 25 mg PO DAILY [facility] Last Admin: 08/04/18 08:50 Dose: 25 mg Methylprednisolone (Solu-Medrol) 30 mg IVP Q12 [facility] Last Admin: 08/04/18 21:21 Dose: 30 mg Metoprolol Succinate (Toprol Xl) 25 mg PO DAILY [facility] Last Admin: 08/04/18 08:51 Dose: 25 mg Multivitamins/Minerals (Therapeutic-M Tab) 1 tab PO DAILY [facility] Last Admin: 08/04/18 08:51 Dose: 1 tab Nicotine (Nicoderm Cq) 1 patch TD DAILY [facility] Last Admin: 08/04/18 08:50 Dose: 1 patch Nitroglycerin (Nitrostat Sl Tab) 0.4 mg SL DAILY PRN PRN Reason: angina Octreotide Acetate (Sandostatin) 100 mcg SC Q12 [facility] Last Admin: 08/04/18 21:25 Dose: 100 mcg Ondansetron HCl (Zofran Inj) 4 mg IVP Q6 PRN PRN Reason: Nausea/Vomiting Promethazine HCl/Dextromethorphan (Phenergan Dm Syrup) 10 ml PO Q6 PRN PRN Reason: Cough Last Admin: 08/05/18 05:22 Dose: 10 ml Sodium Chloride (Sodium Chloride Tab) 1 gm PO DAILY [facility] Last Admin: 08/04/18 08:50 Dose: 1 gm Trazodone HCl (Desyrel) 100 mg PO HS [facility] Last Admin: 08/04/18 21:24 Dose: 100 mg Zolpidem Tartrate (Ambien) 5 mg PO HS PRN PRN Reason: Insomnia Last Admin: 08/04/18 23:12 Dose: 5 mg Physical Exam - Constitutional Appears: No Acute Distress - Head Exam Head Exam: ATRAUMATIC, NORMAL INSPECTION, NORMOCEPHALIC - Eye Exam Eye Exam: EOMI, Normal appearance, PERRL Pupil Exam: NORMAL ACCOMODATION, PERRL - ENT Exam ENT Exam: Mucous Membranes Moist, Normal Exam - Neck Exam Neck exam: Positive for: Normal Inspection - Respiratory Exam Respiratory Exam: Clear to Auscultation Bilateral, Prolonged Expiratory Phase, NORMAL BREATHING PATTERN - Cardiovascular Exam Cardiovascular Exam: REGULAR RHYTHM - GI/Abdominal Exam GI & Abdominal Exam: Normal Bowel Sounds, Soft. absent: Tenderness Additional comments: COLOSTOMY IN PLACE - Rectal Exam Rectal Exam: NORMAL INSPECTION - Extremities Exam Extremities exam: Positive for: normal inspection - Back Exam Back exam: NORMAL INSPECTION - Neurological Exam Neurological exam: Alert, CN II-XII Intact, Normal Gait, Oriented x3, Reflexes Normal - Psychiatric Exam Psychiatric exam: Anxious - Skin Skin Exam: Dry, Intact, Warm Additional comments: ECCHYMOSIS OF L ABDOMINAL WALL Results - Vital Signs Recent Vital Signs: Last Vital Signs Temp 98.5 F 08/05/18 07:47 Pulse 60 08/05/18 07:47 Resp 18 08/05/18 07:47 BP 129/75 08/05/18 07:47 Pulse Ox 99 08/05/18 07:47 - Labs Result Diagrams: 08/04/18 05:25 08/04/18 05:25 Labs: Laboratory Results - last 24 hr 08/04/18 11:00 Urine Osmolality 620 Ur Random Sodium 124 Assessment & Plan - Assessment and Plan (Free Text) Assessment: ACUTE EXACERBATION OF COPD ASHD--S/P ACUTE NSTEMI ANXIETY DISORDER URI FLU--RESOLVED Plan: CONTINUE RX ORDERED AGRESSIVE PT/OT SMOKING CAESATION ADVISED WILL CONTINUE TO FOLLOW WITH YOU - Date & Time Date: 08/05/18 Time: 08:33
--- NOTE | 2018-08-05 11:20 | RAD ---
Date of service: 08/05/2018 HISTORY: COPD COMPARISON: 07/23/2018 TECHNIQUE: Chest PA and lateral FINDINGS: LUNGS: No interval consolidation. The bilateral infrahilar medial and posterior peribronchial thickening (left greater than right) are findings compatible with bronchiectasis. Appearance is similar. Left Port-A-Cath tip in cavoatrial junction. PLEURA: No significant pleural effusion identified. No pneumothorax apparent. CARDIOVASCULAR: There is presence of aortic atherosclerotic calcification on x-ray. Normal cardiac size. No pulmonary vascular congestion. OSSEOUS STRUCTURES: No significant abnormalities. VISUALIZED UPPER ABDOMEN: Partially visualize right upper quadrant multiple surgical clips. OTHER FINDINGS: None. IMPRESSION: No interval pathology noted. Hyperaeration-COPD inferred-similar. Posterior and medial bilateral infrahilar bronchiectasis changes-similar. Other findings as above.
--- NOTE | 2018-08-05 12:05 | CP.PCM.CON ---
History of Present Illness - History of Present Illness History of Present Illness: 68 year old female presenting with shortness of breath, NSTEMI, s/p lovenox injection complicated by abdominal hematoma. Improved with empiric IV antibiotics Now transferred to TCU Past medical history: COPD, HTN, subclavian steal syndrome, CAD s/p PCI Past surgical history: Hysterectomy, cholecystectomy, ileostomy Family history: Brother had throat cancer - smoker Social history: +tobacco Allergies: Sulfa Review of Systems - Constitutional Constitutional: As Per HPI, Anorexia, Chills, Malaise - EENT Eyes: absent: As Per HPI, Blind Spots, Blurred Vision, Change in Vision, Decreased Night Vision, Diplopia, Discharge, Dry Eye, Exophthalmos, Floaters, Irritation, Itchy Eyes, Loss of Peripheral Vision, Pain, Photophobia, Requires Corrective Lenses, Sees Flashes, Spots in Vision, Tunnel Vision, Other Visual Disturbances, Loss of Vision, Other Ears: absent: As Per HPI, Decreased Hearing, Ear Discharge, Ear Pain, Tinnitus, Abnormal Hearing, Disequilibrium, Dizziness, Other Nose/Mouth/Throat: absent: As Per HPI, Epistaxis, Nasal Congestion, Nasal Discharge, Nasal Obstruction, Nasal Trauma, Nose Pain, Post Nasal Drip, Sinus Pain, Sinus Pressure, Bleeding Gums, Change in Voice, Dental Pain, Dry Mouth, Dysphagia, Halitosis, Hoarsness, Lip Swelling, Mouth Lesions, Mouth Pain, Odynophagia, Sore Throat, Throat Swelling, Tongue Swelling, Facial Pain, Neck Pain, Neck Mass, Other - Breasts Breasts: absent: As Per HPI, Change in Shape, Mass, Pain, Nipple Discharge, Nipple Inversion, Skin Changes, Swelling, Other - Cardiovascular Cardiovascular: As Per HPI, Dyspnea on Exertion - Respiratory Respiratory: As Per HPI, Cough, Dyspnea. absent: Hemoptysis - Gastrointestinal Gastrointestinal: absent: As Per HPI, Abdominal Pain, Belching, Bloating, Change in Bowel Habits, Change in Stool Character, Coffee Ground Emesis, Constipation, Cramping, Diarrhea, Dyspepsia, Dysphagia, Early Satiety, Excessive Flatus, Fecal Incontinence, Heartburn, Hematemesis, Hematochezia, Loose Stools, Melena, Nausea, Odynophagia, Temesmus, Vomiting, Other - Genitourinary Genitourinary: absent: As Per HPI, Change in Urinary Stream, Difficulty Urinating, Dysuria, Flank Pain, Hematuria, Pyuria, Nocturia, Urinary Incontinence, Urinary Frequency, Urinary Hesitance, Urinary Urgency, Voiding Freq/Small Amts, Freq UTI, Hx Renal/Bladder Calculi, Hx /Renal Surgery, Bladder Distension, Other - Reproductive: Female Reproductive:Female: absent: As Per HPI, Amenorrhea, Amenorrhea/ Control, Currently Menstual, Cycle <21 Days, Cycle >35 Days, Cycle Variable, Menses 1-7 Days, Menses >/= 8 Days, Menses Variable, Cycle > 4 Weeks Between, No Menses for 6 Months, Heavy Menses, Light Menses, Normal Menses, Spotting Between Cycles, S/P Hysterectomy, Menopausal, Post Menopausal, Premenarche, Abnormal Vaginal Bleeding, Dysmenorrhea, Dyspareunia, Genital Lesions, Genital Pruritis, Pelvic Pain, Prolapse Symptoms, Sexual Dysfunction, Vaginal Discharge, Vaginal Dryness, Vaginal Odor, Vaginal Pruritis, Other - Menstruation Menstruation: absent: As Per HPI, Amenorrhea, Amenorrhea/ Control, Currently Menstual, Cycle <21 Days, Cycle >35 Days, Cycle Variable, Menses 1-7 Days, Menses >/= 8 Days, Menses Variable, Cycle > 4 Weeks Between, No Menses for 6 Months, Heavy Menses, Light Menses, Normal Menses, Spotting Between Cycles, S/P Hysterectomy, Menopausal, Post Menopausal, Premenarche, Abnormal Vaginal Bl eeding, Dysmenorrhea, Other - Musculoskeletal Musculoskeletal: As Per HPI - Integumentary Integumentary: As Per HPI - Neurological Neurological: absent: As Per HPI, Abnormal Gait, Abnormal Hearing, Abnormal Movements, Abnormal Speech, Behavioral Changes, Burning Sensations, Confusion, Convulsions, Disequilibrium, Dizziness, Numbness, Focal Weakness, Frequent Falls, Headaches, Lack of Coordination, Loss of Vision, Memory Loss, Paresthesias, Radicular Pain, Restless Legs, Sensory Deficit, Syncope, Tingling, Tremor, Vertigo, Weakness, Other Visual Disturbances, Other - Psychiatric Psychiatric: absent: As Per HPI, Abnormal Sleep Pattern, Anhedonia, Anxiety, Auditory Hallucinations, Behavioral Changes, Change in Appetite, Change in Libido, Confusion, Depression, Difficulty Concentrating, Hallucinations, Homicidal Ideation, Hopelessness, Irritability, Memory Loss, Mood Swings, Panic Attacks, Paranoia, Suicidal Ideation, Visual Hallucinations, Tactile Hallucinations, Other - Endocrine Endocrine: absent: As Per HPI, Change in Body Appearance, Change in Libido, Cold Intolorance, Deepening of Voice, Excessive Sweating, Fatigue, Flushing, Heat Intolorance, Increase in Ring/Shoe/Hat Size, Palpitations, Polydipsia, Polyphagia, Polyuria, Other - Hematologic/Lymphatic Hematologic: absent: As Per HPI, Easy Bleeding, Easy Bruising, Lymphadenopathy, Other Past Patient History - Past Medical History & Family History Past Medical History?: Yes - Past Social History Smoking Status: Current Some Days Smoker - CARDIAC Hx Hypercholesterolemia: Yes Hx Hypertension: Yes - PULMONARY Hx Chronic Obstructive Pulmonary Disease (COPD): Yes Hx Emphysema: Yes Hx Respiratory Tract Infection: Yes - NEUROLOGICAL Hx Neurological Disorder: Yes Other/Comment: FIBROMYALGIA - HEENT Hx HEENT Problems: No - RENAL Hx Chronic Kidney Disease: No - ENDOCRINE/METABOLIC Hx Endocrine Disorders: No - HEMATOLOGICAL/ONCOLOGICAL Hx Anemia: Yes Hx Blood Transfusions: Yes Hx Blood Transfusion Reaction: No Hx Bruising: Yes Hx Human Immunodeficiency Virus (HIV): No - INTEGUMENTARY Hx Dermatological Problems: No - MUSCULOSKELETAL/RHEUMATOLOGICAL Hx Falls: No - GASTROINTESTINAL Hx Gastrointestinal Disorders: Yes Hx Ileostomy: Yes - GENITOURINARY/GYNECOLOGICAL Hx Genitourinary Disorders: No - PSYCHIATRIC Hx Substance Use: No - SURGICAL HISTORY Hx Cholecystectomy: Yes - ANESTHESIA Hx Anesthesia: Yes Hx Anesthesia Reactions: No Hx Malignant Hyperthermia: No Meds Allergies/Adverse Reactions: Allergies Allergy/AdvReac Type Severity Reaction Status Date / Time Sulfa (Sulfonamide Allergy crystallized Verified 08/03/18 18:01 Antibiotics) kidneys - Medications Medications: Current Medications Acetaminophen (Tylenol 325mg Tab) 650 mg PO Q6 PRN PRN Reason: Headache Last Admin: 08/05/18 05:25 Dose: 650 mg Acetylcysteine (Acetylcysteine 20%) 4 ml INH RBID [facility] Last Admin: 08/05/18 07:32 Dose: 4 ml Albuterol/Ipratropium (Duoneb 3 Mg/0.5 Mg (3 Ml) Ud) 3 ml IH RQ4 [facility] Last Admin: 08/05/18 11:13 Dose: Not Given Alprazolam (Xanax) 0.5 mg PO Q8@0600,1400,2200 [facility] Last Admin: 08/05/18 05:24 Dose: 0.5 mg Aspirin (Ecotrin) 325 mg PO DAILY [facility] Last Admin: 08/05/18 08:24 Dose: 325 mg Atorvastatin Calcium (Lipitor) 20 mg PO HS [facility] Last Admin: 08/05/18 00:06 Dose: 20 mg Budesonide (Pulmicort Respules) 0.25 mg INH RBID [facility] Last Admin: 08/05/18 07:32 Dose: 0.25 mg Budesonide (Pulmicort Respules) 0.25 mg INH RBID [facility] Last Admin: 08/04/18 09:23 Dose: Not Given Clopidogrel Bisulfate (Plavix) 75 mg PO DAILY [facility] Last Admin: 08/05/18 08:24 Dose: 75 mg Cyanocobalamin (Vitamin B12 1000 Mcg/Ml Inj) 1,000 mcg IM Q14D [facility] Last Admin: 08/04/18 00:52 Dose: Not Given Ergocalciferol (Drisdol 50,000 Intl Units Cap) 1 cap PO MO [facility] Last Admin: 08/04/18 00:50 Dose: Not Given Fluconazole (Diflucan) 100 mg PO DAILY [facility]; Protocol Last Admin: 08/05/18 08:24 Dose: 100 mg Fluticasone Propionate (Flonase) 2 spr PRATIBHA HS PRN PRN Reason: Allergy symptoms Last Admin: 08/04/18 08:53 Dose: 2 spr Guaifenesin/Dextromethorphan (Mucinex-Dm 600-30 Mg) 1 tab PO Q12 [facility] Last Admin: 08/05/18 08:25 Dose: 1 tab Home Med (Patient's Own Medication) 5 unit MT TID [facility] Last Admin: 08/05/18 08:25 Dose: 5 unit Hydromorphone HCl (Dilaudid) 0.5 mg IVP Q4 PRN PRN Reason: Pain, severe (8-10) Last Admin: 08/04/18 00:33 Dose: 0.5 mg Azithromycin 500 mg/ Sodium (Chloride) 250 mls @ 250 mls/hr IVPB DAILY@1700 [facility] Last Admin: 08/04/18 16:42 Dose: 250 mls/hr Ceftriaxone Sodium 1 gm/ (Sodium Chloride) 100 mls @ 100 mls/hr IVPB DAILY@1700 [facility] Last Admin: 08/04/18 16:28 Dose: 100 mls/hr Isosorbide Mononitrate (Imdur Er) 30 mg PO DAILY [facility] Last Admin: 08/05/18 08:25 Dose: 30 mg Losartan Potassium (Cozaar) 25 mg PO DAILY [facility] Last Admin: 08/05/18 08:24 Dose: 25 mg Methylprednisolone (Solu-Medrol) 30 mg IVP Q12 [facility] Last Admin: 08/05/18 08:25 Dose: 30 mg Metoprolol Succinate (Toprol Xl) 25 mg PO DAILY [facility] Last Admin: 08/05/18 08:26 Dose: 25 mg Multivitamins/Minerals (Therapeutic-M Tab) 1 tab PO DAILY [facility] Last Admin: 08/05/18 08:27 Dose: 1 tab Nicotine (Nicoderm Cq) 1 patch TD DAILY [facility] Last Admin: 08/05/18 08:23 Dose: 1 patch Nitroglycerin (Nitrostat Sl Tab) 0.4 mg SL DAILY PRN PRN Reason: angina Octreotide Acetate (Sandostatin) 100 mcg SC Q12 [facility] Last Admin: 08/05/18 08:27 Dose: 100 mcg Ondansetron HCl (Zofran Inj) 4 mg IVP Q6 PRN PRN Reason: Nausea/Vomiting Promethazine HCl/Dextromethorphan (Phenergan Dm Syrup) 10 ml PO Q6 PRN PRN Reason: Cough Last Admin: 08/05/18 05:22 Dose: 10 ml Sodium Chloride (Sodium Chloride Tab) 1 gm PO DAILY [facility] Last Admin: 08/05/18 08:24 Dose: 1 gm Trazodone HCl (Desyrel) 100 mg PO HS [facility] Last Admin: 08/04/18 21:24 Dose: 100 mg Zolpidem Tartrate (Ambien) 5 mg PO HS PRN PRN Reason: Insomnia Last Admin: 08/04/18 23:12 Dose: 5 mg Physical Exam - Constitutional Appears: No Acute Distress, Cachectic, Chronically Ill - Head Exam Head Exam: ATRAUMATIC, NORMOCEPHALIC - Eye Exam Eye Exam: absent: Scleral icterus - ENT Exam ENT Exam: Mucous Membranes Dry, Normal External Ear Exam - Neck Exam Neck exam: Negative for: Lymphadenopathy - Respiratory Exam Respiratory Exam: Decreased Breath Sounds, Rhonchi - Cardiovascular Exam Cardiovascular Exam: REGULAR RHYTHM, +S1, +S2 - GI/Abdominal Exam GI & Abdominal Exam: Diminished Bowel Sounds, Distended, Soft. absent: Tenderness - Rectal Exam Rectal Exam: Deferred - Exam Exam: NORMAL INSPECTION - Extremities Exam Extremities exam: Positive for: pedal pulses present. Negative for: calf tenderness, pedal edema, tenderness - Back Exam Back exam: absent: CVA tenderness (L), CVA tenderness (R), paraspinal tenderness - Neurological Exam Neurological exam: Alert, CN II-XII Intact, Oriented x3, Reflexes Normal - Psychiatric Exam Psychiatric exam: Depressed Results - Vital Signs Recent Vital Signs: Last Vital Signs Temp 98.5 F 08/05/18 07:47 Pulse 60 08/05/18 11:01 Resp 18 08/05/18 07:47 BP 129/75 08/05/18 11:01 Pulse Ox 93 L 08/05/18 11:01 - Labs Result Diagrams: 08/04/18 05:25 08/04/18 05:25 Assessment & Plan (1) CHF (congestive heart failure) Status: Chronic (2) Bronchitis Status: Acute (3) COPD exacerbation Status: Acute Priority: High - Assessment and Plan (Free Text) Assessment: refused cardiac cath leukocytosis on steroids IV rx in progress
[2018-08-05] MEDS: Azithromycin 500 MG in Sodium Chloride 0.9% 250 ML IVPB SCH (18:24)
[2018-08-06] MEDS: Albuterol-Ipratrop 3 mg / 0.5 (3 ml) UD IH SCH ×6 (05:00→23:40)
--- NOTE | 2018-08-06 05:16 | CP.PCM.HP ---
Past Patient History - Past Medical History & Family History Past Medical History?: Yes - Past Social History Smoking Status: Current Some Days Smoker - CARDIAC Hx Hypercholesterolemia: Yes Hx Hypertension: Yes - PULMONARY Hx Chronic Obstructive Pulmonary Disease (COPD): Yes Hx Emphysema: Yes Hx Respiratory Tract Infection: Yes - NEUROLOGICAL Hx Neurological Disorder: Yes Other/Comment: FIBROMYALGIA - HEENT Hx HEENT Problems: No - RENAL Hx Chronic Kidney Disease: No - ENDOCRINE/METABOLIC Hx Endocrine Disorders: No - HEMATOLOGICAL/ONCOLOGICAL Hx Anemia: Yes Hx Blood Transfusions: Yes Hx Blood Transfusion Reaction: No Hx Bruising: Yes Hx Human Immunodeficiency Virus (HIV): No - INTEGUMENTARY Hx Dermatological Problems: No - MUSCULOSKELETAL/RHEUMATOLOGICAL Hx Falls: No - GASTROINTESTINAL Hx Gastrointestinal Disorders: Yes Hx Ileostomy: Yes - GENITOURINARY/GYNECOLOGICAL Hx Genitourinary Disorders: No - PSYCHIATRIC Hx Substance Use: No - SURGICAL HISTORY Hx Cholecystectomy: Yes - ANESTHESIA Hx Anesthesia: Yes Hx Anesthesia Reactions: No Hx Malignant Hyperthermia: No Meds Allergies/Adverse Reactions: Allergies Allergy/AdvReac Type Severity Reaction Status Date / Time Sulfa (Sulfonamide Allergy crystallized Verified 08/03/18 18:01 Antibiotics) kidneys Results - Vital Signs Recent Vital Signs: Last Vital Signs Temp 97.3 F L 08/05/18 21:41 Pulse 93 H 08/05/18 21:41 Resp 20 08/05/18 21:41 BP 150/73 08/05/18 21:41 Pulse Ox 94 L 08/05/18 21:41 - Labs Result Diagrams: 08/04/18 05:25 08/04/18 05:25
--- NOTE | 2018-08-06 05:17 | CP.PCM.PN ---
Subjective - Date & Time of Evaluation Date of Evaluation: 08/05/18 Objective - Vital Signs/Intake and Output Vital Signs (last 24 hours): Temp Pulse Resp BP Pulse Ox 97.3 F L 93 H 20 150/73 94 L 08/05/18 21:41 08/05/18 21:41 08/05/18 21:41 08/05/18 21:41 08/05/18 21:41 - Medications Medications: Current Medications Acetaminophen (Tylenol 325mg Tab) 650 mg PO Q6 PRN PRN Reason: Headache Last Admin: 08/05/18 05:25 Dose: 650 mg Acetylcysteine (Acetylcysteine 20%) 4 ml INH RBID [facility] Last Admin: 08/05/18 19:13 Dose: 4 ml Albuterol/Ipratropium (Duoneb 3 Mg/0.5 Mg (3 Ml) Ud) 3 ml IH RQ4 [facility] Last Admin: 08/05/18 23:47 Dose: Not Given Alprazolam (Xanax) 0.5 mg PO Q8@0600,1400,2200 [facility] Last Admin: 08/05/18 22:00 Dose: Not Given Aspirin (Ecotrin) 325 mg PO DAILY [facility] Last Admin: 08/05/18 08:24 Dose: 325 mg Atorvastatin Calcium (Lipitor) 20 mg PO HS [facility] Last Admin: 08/05/18 21:16 Dose: 20 mg Budesonide (Pulmicort Respules) 0.25 mg INH RBID [facility] Last Admin: 08/05/18 19:12 Dose: 0.25 mg Budesonide (Pulmicort Respules) 0.25 mg INH RBID [facility] Last Admin: 08/05/18 19:13 Dose: Not Given Clopidogrel Bisulfate (Plavix) 75 mg PO DAILY [facility] Last Admin: 08/05/18 08:24 Dose: 75 mg Cyanocobalamin (Vitamin B12 1000 Mcg/Ml Inj) 1,000 mcg IM Q14D [facility] Last Admin: 08/04/18 00:52 Dose: Not Given Ergocalciferol (Drisdol 50,000 Intl Units Cap) 1 cap PO MO [facility] Last Admin: 08/04/18 00:50 Dose: Not Given Fluconazole (Diflucan) 100 mg PO DAILY [facility]; Protocol Last Admin: 08/05/18 08:24 Dose: 100 mg Fluticasone Propionate (Flonase) 2 spr PRATIBHA HS PRN PRN Reason: Allergy symptoms Last Admin: 08/04/18 08:53 Dose: 2 spr Guaifenesin/Dextromethorphan (Mucinex-Dm 600-30 Mg) 1 tab PO Q12 [facility] Last Admin: 08/05/18 21:16 Dose: 1 tab Home Med (Patient's Own Medication) 5 unit MT TID [facility] Last Admin: 08/05/18 22:17 Dose: 5 unit Hydromorphone HCl (Dilaudid) 0.5 mg IVP Q4 PRN PRN Reason: Pain, severe (8-10) Last Admin: 08/04/18 00:33 Dose: 0.5 mg Azithromycin 500 mg/ Sodium (Chloride) 250 mls @ 250 mls/hr IVPB DAILY@1700 [facility] Last Admin: 08/05/18 18:24 Dose: 250 mls/hr Ceftriaxone Sodium 1 gm/ (Sodium Chloride) 100 mls @ 100 mls/hr IVPB DAILY@1700 [facility] Last Admin: 08/05/18 17:02 Dose: 100 mls/hr Isosorbide Mononitrate (Imdur Er) 30 mg PO DAILY [facility] Last Admin: 08/05/18 08:25 Dose: 30 mg Losartan Potassium (Cozaar) 25 mg PO DAILY [facility] Last Admin: 08/05/18 08:24 Dose: 25 mg Methylprednisolone (Solu-Medrol) 30 mg IVP Q12 [facility] Last Admin: 08/05/18 21:16 Dose: 30 mg Metoprolol Succinate (Toprol Xl) 25 mg PO DAILY [facility] Last Admin: 08/05/18 08:26 Dose: 25 mg Multivitamins/Minerals (Therapeutic-M Tab) 1 tab PO DAILY [facility] Last Admin: 08/05/18 08:27 Dose: 1 tab Nicotine (Nicoderm Cq) 1 patch TD DAILY [facility] Last Admin: 08/05/18 08:23 Dose: 1 patch Nitroglycerin (Nitrostat Sl Tab) 0.4 mg SL DAILY PRN PRN Reason: angina Octreotide Acetate (Sandostatin) 100 mcg SC Q12 [facility] Last Admin: 08/05/18 21:16 Dose: 100 mcg Ondansetron HCl (Zofran Inj) 4 mg IVP Q6 PRN PRN Reason: Nausea/Vomiting Promethazine HCl/Dextromethorphan (Phenergan Dm Syrup) 10 ml PO Q6 PRN PRN Reason: Cough Last Admin: 08/05/18 18:09 Dose: 10 ml Sodium Chloride (Sodium Chloride Tab) 1 gm PO DAILY [facility] Last Admin: 08/05/18 08:24 Dose: 1 gm Trazodone HCl (Desyrel) 100 mg PO HS [facility] Last Admin: 08/05/18 22:17 Dose: 100 mg Zolpidem Tartrate (Ambien) 5 mg PO HS PRN PRN Reason: Insomnia Last Admin: 08/06/18 01:41 Dose: 5 mg - Labs Labs: 08/04/18 05:25 08/04/18 05:25
[2018-08-06] MEDS: Acetylcysteine 20% Inhal Soln (4ml) INH SCH ×2 (07:13→19:11)
[2018-08-06] MEDS: Budesonide 0.25 mg/2 ml Inhal Susp UD INH SCH ×2 (07:14→19:12)
--- NOTE | 2018-08-06 08:11 | CP.PCM.PN ---
Subjective - Date & Time of Evaluation Date of Evaluation: 08/06/18 Time of Evaluation: 08:11 - Subjective Subjective: SOB IMPROVING COUGH LESS TOLERATING DIET NO NEW PHYSICAL FINDINGS CXR REVIEWED IMP-COPD PLAN-CONTINUE CURRENT RX Objective - Vital Signs/Intake and Output Vital Signs (last 24 hours): Temp Pulse Resp BP Pulse Ox 97.3 F L 93 H 20 150/73 94 L 08/05/18 21:41 08/05/18 21:41 08/05/18 21:41 08/05/18 21:41 08/05/18 21:41 - Medications Medications: Current Medications Acetaminophen (Tylenol 325mg Tab) 650 mg PO Q6 PRN PRN Reason: Headache Last Admin: 08/05/18 05:25 Dose: 650 mg Acetylcysteine (Acetylcysteine 20%) 4 ml INH RBID [facility] Last Admin: 08/06/18 07:13 Dose: 4 ml Albuterol/Ipratropium (Duoneb 3 Mg/0.5 Mg (3 Ml) Ud) 3 ml IH RQ4 [facility] Last Admin: 08/06/18 07:14 Dose: 3 ml Alprazolam (Xanax) 0.5 mg PO Q8@0600,1400,2200 [facility] Last Admin: 08/06/18 06:17 Dose: 0.5 mg Aspirin (Ecotrin) 325 mg PO DAILY [facility] Last Admin: 08/05/18 08:24 Dose: 325 mg Atorvastatin Calcium (Lipitor) 20 mg PO HS [facility] Last Admin: 08/05/18 21:16 Dose: 20 mg Budesonide (Pulmicort Respules) 0.25 mg INH RBID [facility] Last Admin: 08/06/18 07:14 Dose: 0.25 mg Budesonide (Pulmicort Respules) 0.25 mg INH RBID [facility] Last Admin: 08/05/18 19:13 Dose: Not Given Clopidogrel Bisulfate (Plavix) 75 mg PO DAILY [facility] Last Admin: 08/05/18 08:24 Dose: 75 mg Cyanocobalamin (Vitamin B12 1000 Mcg/Ml Inj) 1,000 mcg IM Q14D [facility] Last Admin: 08/04/18 00:52 Dose: Not Given Ergocalciferol (Drisdol 50,000 Intl Units Cap) 1 cap PO MO [facility] Last Admin: 08/04/18 00:50 Dose: Not Given Fluconazole (Diflucan) 100 mg PO DAILY [facility]; Protocol Last Admin: 08/05/18 08:24 Dose: 100 mg Fluticasone Propionate (Flonase) 2 spr PRATIBHA HS PRN PRN Reason: Allergy symptoms Last Admin: 08/04/18 08:53 Dose: 2 spr Guaifenesin/Dextromethorphan (Mucinex-Dm 600-30 Mg) 1 tab PO Q12 [facility] Last Admin: 08/05/18 21:16 Dose: 1 tab Home Med (Patient's Own Medication) 5 unit MT TID [facility] Last Admin: 08/05/18 22:17 Dose: 5 unit Hydromorphone HCl (Dilaudid) 0.5 mg IVP Q4 PRN PRN Reason: Pain, severe (8-10) Last Admin: 08/04/18 00:33 Dose: 0.5 mg Azithromycin 500 mg/ Sodium (Chloride) 250 mls @ 250 mls/hr IVPB DAILY@1700 [facility] Last Admin: 08/05/18 18:24 Dose: 250 mls/hr Ceftriaxone Sodium 1 gm/ (Sodium Chloride) 100 mls @ 100 mls/hr IVPB DAILY@1700 [facility] Last Admin: 08/05/18 17:02 Dose: 100 mls/hr Isosorbide Mononitrate (Imdur Er) 30 mg PO DAILY [facility] Last Admin: 08/05/18 08:25 Dose: 30 mg Losartan Potassium (Cozaar) 25 mg PO DAILY [facility] Last Admin: 08/05/18 08:24 Dose: 25 mg Methylprednisolone (Solu-Medrol) 30 mg IVP Q12 [facility] Last Admin: 08/05/18 21:16 Dose: 30 mg Metoprolol Succinate (Toprol Xl) 25 mg PO DAILY [facility] Last Admin: 08/05/18 08:26 Dose: 25 mg Multivitamins/Minerals (Therapeutic-M Tab) 1 tab PO DAILY [facility] Last Admin: 08/05/18 08:27 Dose: 1 tab Nicotine (Nicoderm Cq) 1 patch TD DAILY [facility] Last Admin: 08/05/18 08:23 Dose: 1 patch Nitroglycerin (Nitrostat Sl Tab) 0.4 mg SL DAILY PRN PRN Reason: angina Octreotide Acetate (Sandostatin) 100 mcg SC Q12 [facility] Last Admin: 08/05/18 21:16 Dose: 100 mcg Ondansetron HCl (Zofran Inj) 4 mg IVP Q6 PRN PRN Reason: Nausea/Vomiting Promethazine HCl/Dextromethorphan (Phenergan Dm Syrup) 10 ml PO Q6 PRN PRN Reason: Cough Last Admin: 08/05/18 18:09 Dose: 10 ml Sodium Chloride (Sodium Chloride Tab) 1 gm PO DAILY [facility] Last Admin: 08/05/18 08:24 Dose: 1 gm Trazodone HCl (Desyrel) 100 mg PO HS [facility] Last Admin: 08/05/18 22:17 Dose: 100 mg Zolpidem Tartrate (Ambien) 5 mg PO HS PRN PRN Reason: Insomnia Last Admin: 08/06/18 01:41 Dose: 5 mg - Labs Labs: 08/04/18 05:25 08/04/18 05:25
[2018-08-06] MEDS: MAGIC MOUTHWASH MT SCH ×3 (08:28→16:29)
[2018-08-06] MEDS: Multivitamin With Minerals Tab PO SCH (08:29)
[2018-08-06] MEDS: guaiFENesin-DM 600-30 mg ER Tab PO SCH (08:29)
[2018-08-06] MEDS: Aspirin 325 mg EC Tablets PO SCH (08:30)
[2018-08-06] MEDS: Metoprolol Succinate 25 mg XL Tab PO SCH (08:32)
[2018-08-06] MEDS: MethylPREDNISolone 40 mg Vial IVP SCH ×2 (08:32→22:06)
--- NOTE | 2018-08-06 11:10 | CP.PCM.PN ---
Subjective - Date & Time of Evaluation Date of Evaluation: 08/06/18 Time of Evaluation: 10:30 - Subjective Subjective: FEELS BETTER NO CHEST PAIN BREATHING BETTER, LESS COUGH PROGRESSING WITH ARCELIA Objective - Vital Signs/Intake and Output Vital Signs (last 24 hours): Temp Pulse Resp BP Pulse Ox 98.4 F 90 18 158/56 H 98 08/06/18 08:14 08/06/18 08:32 08/06/18 08:14 08/06/18 08:32 08/06/18 08:14 - Medications Medications: Current Medications Acetaminophen (Tylenol 325mg Tab) 650 mg PO Q6 PRN PRN Reason: Headache Last Admin: 08/05/18 05:25 Dose: 650 mg Acetylcysteine (Acetylcysteine 20%) 4 ml INH RBID [facility] Last Admin: 08/06/18 07:13 Dose: 4 ml Albuterol/Ipratropium (Duoneb 3 Mg/0.5 Mg (3 Ml) Ud) 3 ml IH RQ4 [facility] Last Admin: 08/06/18 07:14 Dose: 3 ml Alprazolam (Xanax) 0.5 mg PO Q8@0600,1400,2200 [facility] Last Admin: 08/06/18 06:17 Dose: 0.5 mg Aspirin (Ecotrin) 325 mg PO DAILY [facility] Last Admin: 08/06/18 08:30 Dose: 325 mg Atorvastatin Calcium (Lipitor) 20 mg PO HS [facility] Last Admin: 08/05/18 21:16 Dose: 20 mg Budesonide (Pulmicort Respules) 0.25 mg INH RBID [facility] Last Admin: 08/06/18 07:14 Dose: 0.25 mg Budesonide (Pulmicort Respules) 0.25 mg INH RBID [facility] Last Admin: 08/05/18 19:13 Dose: Not Given Clopidogrel Bisulfate (Plavix) 75 mg PO DAILY [facility] Last Admin: 08/06/18 08:29 Dose: 75 mg Cyanocobalamin (Vitamin B12 1000 Mcg/Ml Inj) 1,000 mcg IM Q14D [facility] Last Admin: 08/04/18 00:52 Dose: Not Given Ergocalciferol (Drisdol 50,000 Intl Units Cap) 1 cap PO MO [facility] Last Admin: 08/04/18 00:50 Dose: Not Given Fluconazole (Diflucan) 100 mg PO DAILY [facility]; Protocol Last Admin: 08/06/18 08:31 Dose: 100 mg Fluticasone Propionate (Flonase) 2 spr PRATIBHA HS PRN PRN Reason: Allergy symptoms Last Admin: 08/04/18 08:53 Dose: 2 spr Guaifenesin/Dextromethorphan (Mucinex-Dm 600-30 Mg) 1 tab PO Q12 [facility] Last Admin: 08/06/18 08:29 Dose: 1 tab Home Med (Patient's Own Medication) 5 unit MT TID [facility] Last Admin: 08/06/18 08:28 Dose: 5 unit Hydromorphone HCl (Dilaudid) 0.5 mg IVP Q4 PRN PRN Reason: Pain, severe (8-10) Last Admin: 08/04/18 00:33 Dose: 0.5 mg Azithromycin 500 mg/ Sodium (Chloride) 250 mls @ 250 mls/hr IVPB DAILY@1700 [facility] Last Admin: 08/05/18 18:24 Dose: 250 mls/hr Ceftriaxone Sodium 1 gm/ (Sodium Chloride) 100 mls @ 100 mls/hr IVPB DAILY@1700 [facility] Last Admin: 08/05/18 17:02 Dose: 100 mls/hr Isosorbide Mononitrate (Imdur Er) 30 mg PO DAILY [facility] Last Admin: 08/06/18 08:30 Dose: 30 mg Losartan Potassium (Cozaar) 25 mg PO DAILY [facility] Last Admin: 08/06/18 08:31 Dose: 25 mg Methylprednisolone (Solu-Medrol) 30 mg IVP Q12 [facility] Last Admin: 08/06/18 08:32 Dose: 30 mg Metoprolol Succinate (Toprol Xl) 25 mg PO DAILY [facility] Last Admin: 08/06/18 08:32 Dose: 25 mg Multivitamins/Minerals (Therapeutic-M Tab) 1 tab PO DAILY [facility] Last Admin: 08/06/18 08:29 Dose: 1 tab Nicotine (Nicoderm Cq) 1 patch TD DAILY [facility] Last Admin: 08/06/18 08:27 Dose: 1 patch Nitroglycerin (Nitrostat Sl Tab) 0.4 mg SL DAILY PRN PRN Reason: angina Octreotide Acetate (Sandostatin) 100 mcg SC Q12 [facility] Last Admin: 08/06/18 08:35 Dose: 100 mcg Ondansetron HCl (Zofran Inj) 4 mg IVP Q6 PRN PRN Reason: Nausea/Vomiting Promethazine HCl/Dextromethorphan (Phenergan Dm Syrup) 10 ml PO Q6 PRN PRN Reason: Cough Last Admin: 08/05/18 18:09 Dose: 10 ml Sodium Chloride (Sodium Chloride Tab) 1 gm PO DAILY [facility] Last Admin: 08/06/18 08:30 Dose: 1 gm Trazodone HCl (Desyrel) 100 mg PO HS [facility] Last Admin: 08/05/18 22:17 Dose: 100 mg Zolpidem Tartrate (Ambien) 5 mg PO HS PRN PRN Reason: Insomnia Last Admin: 08/06/18 01:41 Dose: 5 mg - Labs Labs: 08/04/18 05:25 08/04/18 05:25 - Respiratory Exam Respiratory Exam: Clear to Ausculation Bilateral - Cardiovascular Exam Cardiovascular Exam: REGULAR RHYTHM, +S1, +S2 - Extremities Exam Additional comments: NO LE EDEMA Assessment and Plan - Assessment and Plan (Free Text) Assessment: CAD WITH OLD AWMI AND RECENT EXTENSION-CHEST PAIN FREE HYPERTENSION HYPERLIPIDEMIA COPD Plan: CONTINUE ASPIRIN, CLOPIDOGREL, METOPROLOL, LOSARTAN, NITRATES, ATORVASTATIN, ANTIBIOTICS AND COPD MEDICATIONS CONTINUE ARCELIA
[2018-08-06] MEDS: Azithromycin 500 MG in Sodium Chloride 0.9% 250 ML IVPB SCH (16:26)
[2018-08-07] MEDS: Promethazine/Cod 6.25mg-10mg/5ml Syr UD PO PRN (01:03)
[2018-08-07] MEDS: Albuterol-Ipratrop 3 mg / 0.5 (3 ml) UD IH SCH ×5 (04:04→19:31)
[2018-08-07] MEDS: Acetylcysteine 20% Inhal Soln (4ml) INH SCH ×2 (07:14→19:30)
[2018-08-07] MEDS: Budesonide 0.25 mg/2 ml Inhal Susp UD INH SCH ×2 (07:14→19:31)
[2018-08-07] MEDS: MethylPREDNISolone 40 mg Vial IVP SCH ×2 (08:57→21:50)
[2018-08-07] MEDS: Aspirin 325 mg EC Tablets PO SCH (08:58)
[2018-08-07] MEDS: Multivitamin With Minerals Tab PO SCH (08:58)
[2018-08-07] MEDS: MAGIC MOUTHWASH MT SCH ×2 (08:59→13:55)
[2018-08-07] MEDS: Metoprolol Succinate 25 mg XL Tab PO SCH (08:59)
--- NOTE | 2018-08-07 12:09 | CP.PCM.PN ---
Subjective - Date & Time of Evaluation Date of Evaluation: 08/07/18 Time of Evaluation: 12:09 - Subjective Subjective: CLINICALLY IMPROVING SOB LESS COUGH LESS Objective - Vital Signs/Intake and Output Vital Signs (last 24 hours): Temp Pulse Resp BP Pulse Ox 97.6 F 64 20 130/63 100 08/07/18 09:00 08/07/18 09:01 08/07/18 09:00 08/07/18 09:01 08/07/18 09:00 - Medications Medications: Current Medications Acetaminophen (Tylenol 325mg Tab) 650 mg PO Q6 PRN PRN Reason: Headache Last Admin: 08/05/18 05:25 Dose: 650 mg Acetylcysteine (Acetylcysteine 20%) 4 ml INH RBID [facility] Last Admin: 08/07/18 07:14 Dose: 4 ml Albuterol/Ipratropium (Duoneb 3 Mg/0.5 Mg (3 Ml) Ud) 3 ml IH RQ4 [facility] Last Admin: 08/07/18 07:14 Dose: 3 ml Alprazolam (Xanax) 0.5 mg PO Q8@0600,1400,2200 [facility] Last Admin: 08/07/18 06:20 Dose: 0.5 mg Aspirin (Ecotrin) 325 mg PO DAILY [facility] Last Admin: 08/07/18 08:58 Dose: 325 mg Atorvastatin Calcium (Lipitor) 20 mg PO HS [facility] Last Admin: 08/06/18 22:05 Dose: 20 mg Budesonide (Pulmicort Respules) 0.25 mg INH RBID [facility] Last Admin: 08/07/18 07:14 Dose: 0.25 mg Budesonide (Pulmicort Respules) 0.25 mg INH RBID [facility] Last Admin: 08/05/18 19:13 Dose: Not Given Clopidogrel Bisulfate (Plavix) 75 mg PO DAILY [facility] Last Admin: 08/07/18 08:58 Dose: 75 mg Cyanocobalamin (Vitamin B12 1000 Mcg/Ml Inj) 1,000 mcg IM Q14D [facility] Last Admin: 08/04/18 00:52 Dose: Not Given Ergocalciferol (Drisdol 50,000 Intl Units Cap) 1 cap PO MO [facility] Last Admin: 08/04/18 00:50 Dose: Not Given Fluconazole (Diflucan) 100 mg PO DAILY [facility]; Protocol Last Admin: 08/07/18 09:01 Dose: 100 mg Fluticasone Propionate (Flonase) 2 spr PRATIBHA HS PRN PRN Reason: Allergy symptoms Last Admin: 08/04/18 08:53 Dose: 2 spr Home Med (Patient's Own Medication) 5 unit MT TID [facility] Last Admin: 08/07/18 08:59 Dose: 5 unit Hydromorphone HCl (Dilaudid) 0.5 mg IVP Q4 PRN PRN Reason: Pain, severe (8-10) Last Admin: 08/04/18 00:33 Dose: 0.5 mg Azithromycin 500 mg/ Sodium (Chloride) 250 mls @ 250 mls/hr IVPB DAILY@1700 [facility] Last Admin: 08/06/18 16:26 Dose: 250 mls/hr Ceftriaxone Sodium 1 gm/ (Sodium Chloride) 100 mls @ 100 mls/hr IVPB DAILY@1700 [facility] Last Admin: 08/06/18 16:22 Dose: 100 mls/hr Isosorbide Mononitrate (Imdur Er) 30 mg PO DAILY [facility] Last Admin: 08/07/18 08:58 Dose: 30 mg Losartan Potassium (Cozaar) 25 mg PO DAILY [facility] Last Admin: 08/07/18 09:01 Dose: 25 mg Methylprednisolone (Solu-Medrol) 30 mg IVP Q12 [facility] Last Admin: 08/07/18 08:57 Dose: 30 mg Metoprolol Succinate (Toprol Xl) 25 mg PO DAILY [facility] Last Admin: 08/07/18 08:59 Dose: 25 mg Multivitamins/Minerals (Therapeutic-M Tab) 1 tab PO DAILY [facility] Last Admin: 08/07/18 08:58 Dose: 1 tab Nicotine (Nicoderm Cq) 1 patch TD DAILY [facility] Last Admin: 08/07/18 08:58 Dose: 1 patch Nitroglycerin (Nitrostat Sl Tab) 0.4 mg SL DAILY PRN PRN Reason: angina Octreotide Acetate (Sandostatin) 100 mcg SC Q12 [facility] Last Admin: 08/07/18 08:56 Dose: 100 mcg Ondansetron HCl (Zofran Inj) 4 mg IVP Q6 PRN PRN Reason: Nausea/Vomiting Promethazine HCl/Codeine (Phenergan/Codeine Oral Syrup) 10 ml PO Q6 PRN PRN Reason: Cough Last Admin: 08/07/18 01:03 Dose: 10 ml Sodium Chloride (Sodium Chloride Tab) 1 gm PO DAILY [facility] Last Admin: 08/07/18 08:57 Dose: 1 gm Trazodone HCl (Desyrel) 100 mg PO HS [facility] Last Admin: 08/06/18 22:05 Dose: 100 mg Zolpidem Tartrate (Ambien) 5 mg PO HS PRN PRN Reason: Insomnia Last Admin: 08/07/18 01:02 Dose: 5 mg - Labs Labs: 08/04/18 05:25 08/04/18 05:25 - Constitutional Appears: No Acute Distress - Head Exam Head Exam: ATRAUMATIC, NORMAL INSPECTION, NORMOCEPHALIC - Eye Exam Eye Exam: EOMI, Normal appearance, PERRL Pupil Exam: NORMAL ACCOMODATION, PERRL - ENT Exam ENT Exam: Mucous Membranes Moist, Normal Exam - Neck Exam Neck Exam: Full ROM, Normal Inspection. absent: Lymphadenopathy - Respiratory Exam Respiratory Exam: Clear to Ausculation Bilateral, Prolonged Expiratory Phase, NORMAL BREATHING PATTERN - Cardiovascular Exam Cardiovascular Exam: REGULAR RHYTHM, +S1, +S2. absent: Murmur - GI/Abdominal Exam GI & Abdominal Exam: Soft, Normal Bowel Sounds. absent: Tenderness - Rectal Exam Rectal Exam: NORMAL INSPECTION - Extremities Exam Extremities Exam: Full ROM, Normal Capillary Refill, Normal Inspection, Pedal Edema. absent: Joint Swelling - Back Exam Back Exam: NORMAL INSPECTION - Neurological Exam Neurological Exam: Alert, Awake, CN II-XII Intact, Normal Gait, Oriented x3 - Psychiatric Exam Psychiatric exam: Normal Affect, Normal Mood - Skin Skin Exam: Dry, Intact, Normal Color, Warm Assessment and Plan - Assessment and Plan (Free Text) Assessment: COPD IMPROVING Plan: CONTINUE CURRENT RX
[2018-08-07 12:33] LABS: BASO # 0.1 K/uL (0.0-0.2); BASO % 0.4 % (0.0-2.0); LYMPH # 0.2 K/uL (1.0-4.3); LYMPH % 1.5 % (20.0-40.0); MEAN CELL VOLUME 96.5 fl (81.0-99.0); MEAN CORPUSCULAR HEMOGLOBIN 32.5 pg (27.0-31.0); MEAN CORPUSCULAR HGB CONC 33.7 g/dL (33.0-37.0); MEAN PLATELET VOLUME 7.3 fl (7.2-11.7); MONO # 0.3 K/uL (0.0-0.8); MONO % 1.8 % (0.0-10.0); NEUT # 14.8 K/uL (1.8-7.0); NEUT % 96.3 % (50.0-75.0); PLATELET COUNT 219 K/uL (130-400); RBC 3.39 Mil/uL (3.80-5.20); RED CELL DISTRIBUTION WIDTH 15.6 % (11.5-14.5); WHITE BLOOD COUNT 15.4 K/uL (4.8-10.8)
[2018-08-07 12:51] LABS: B-TYPE NATRIURETIC PEPTIDE 3060 pg/ml (0-900)
[2018-08-07 12:54] LABS: ALBUMIN 2.8 g/dL (3.5-5.0); ALT/SGPT 65 U/L (9-52); AST/SGOT 31 U/L (14-36); BLOOD UREA NITROGEN 22 mg/dl (7-17); GFR NON-AFRICAN AMERICAN > 60
[2018-08-07 13:09] LABS: LYMPHOCYTE 4 % (20-50); MONOCYTE 2 % (0-10); NEUTROPHIL 94 % (42-75); TOTAL CELLS COUNTED 100
[2018-08-07 13:12] LABS: PLATELET ESTIMATE NORMAL (NORMAL)
[2018-08-07 13:13] LABS: ANISOCYTOSIS SLIGHT; TOXIC GRANULATION PRESENT
[2018-08-07] MEDS: Azithromycin 500 MG in Sodium Chloride 0.9% 250 ML IVPB SCH (16:26)
--- NOTE | 2018-08-07 18:10 | CP.PCM.PN ---
Subjective - Date & Time of Evaluation Date of Evaluation: 08/06/18 Time of Evaluation: 17:45 Objective - Vital Signs/Intake and Output Vital Signs (last 24 hours): Temp Pulse Resp BP Pulse Ox 97.3 F L 67 20 125/69 98 08/07/18 15:40 08/07/18 15:40 08/07/18 15:40 08/07/18 15:40 08/07/18 15:40 - Medications Medications: Current Medications Acetaminophen (Tylenol 325mg Tab) 650 mg PO Q6 PRN PRN Reason: Headache Last Admin: 08/05/18 05:25 Dose: 650 mg Acetylcysteine (Acetylcysteine 20%) 4 ml INH RBID [facility] Last Admin: 08/07/18 07:14 Dose: 4 ml Albuterol/Ipratropium (Duoneb 3 Mg/0.5 Mg (3 Ml) Ud) 3 ml IH RQ4 [facility] Last Admin: 08/07/18 16:32 Dose: 3 ml Alprazolam (Xanax) 0.5 mg PO Q8@0600,1400,2200 [facility] Last Admin: 08/07/18 13:54 Dose: 0.5 mg Aspirin (Ecotrin) 325 mg PO DAILY [facility] Last Admin: 08/07/18 08:58 Dose: 325 mg Atorvastatin Calcium (Lipitor) 20 mg PO HS [facility] Last Admin: 08/06/18 22:05 Dose: 20 mg Budesonide (Pulmicort Respules) 0.25 mg INH RBID [facility] Last Admin: 08/07/18 07:14 Dose: 0.25 mg Budesonide (Pulmicort Respules) 0.25 mg INH RBID [facility] Last Admin: 08/05/18 19:13 Dose: Not Given Clopidogrel Bisulfate (Plavix) 75 mg PO DAILY [facility] Last Admin: 08/07/18 08:58 Dose: 75 mg Cyanocobalamin (Vitamin B12 1000 Mcg/Ml Inj) 1,000 mcg IM Q14D [facility] Last Admin: 08/04/18 00:52 Dose: Not Given Ergocalciferol (Drisdol 50,000 Intl Units Cap) 1 cap PO MO [facility] Last Admin: 08/04/18 00:50 Dose: Not Given Fluconazole (Diflucan) 100 mg PO DAILY [facility]; Protocol Last Admin: 08/07/18 09:01 Dose: 100 mg Fluticasone Propionate (Flonase) 2 spr PRATIBHA HS PRN PRN Reason: Allergy symptoms Last Admin: 08/04/18 08:53 Dose: 2 spr Home Med (Patient's Own Medication) 5 unit MT TID [facility] Last Admin: 08/07/18 13:55 Dose: 5 unit Hydromorphone HCl (Dilaudid) 0.5 mg IVP Q4 PRN PRN Reason: Pain, severe (8-10) Last Admin: 08/04/18 00:33 Dose: 0.5 mg Azithromycin 500 mg/ Sodium (Chloride) 250 mls @ 250 mls/hr IVPB DAILY@1700 [facility] Last Admin: 08/07/18 16:26 Dose: 250 mls/hr Ceftriaxone Sodium 1 gm/ (Sodium Chloride) 100 mls @ 100 mls/hr IVPB DAILY@1700 [facility] Last Admin: 08/07/18 16:26 Dose: 100 mls/hr Isosorbide Mononitrate (Imdur Er) 30 mg PO DAILY [facility] Last Admin: 08/07/18 08:58 Dose: 30 mg Losartan Potassium (Cozaar) 25 mg PO DAILY [facility] Last Admin: 08/07/18 09:01 Dose: 25 mg Methylprednisolone (Solu-Medrol) 30 mg IVP Q12 [facility] Last Admin: 08/07/18 08:57 Dose: 30 mg Metoprolol Succinate (Toprol Xl) 25 mg PO DAILY [facility] Last Admin: 08/07/18 08:59 Dose: 25 mg Multivitamins/Minerals (Therapeutic-M Tab) 1 tab PO DAILY [facility] Last Admin: 08/07/18 08:58 Dose: 1 tab Nicotine (Nicoderm Cq) 1 patch TD DAILY [facility] Last Admin: 08/07/18 08:58 Dose: 1 patch Nitroglycerin (Nitrostat Sl Tab) 0.4 mg SL DAILY PRN PRN Reason: angina Octreotide Acetate (Sandostatin) 100 mcg SC Q12 [facility] Last Admin: 08/07/18 08:56 Dose: 100 mcg Ondansetron HCl (Zofran Inj) 4 mg IVP Q6 PRN PRN Reason: Nausea/Vomiting Promethazine HCl/Codeine (Phenergan/Codeine Oral Syrup) 10 ml PO Q6 PRN PRN Reason: Cough Last Admin: 08/07/18 01:03 Dose: 10 ml Sodium Chloride (Sodium Chloride Tab) 1 gm PO DAILY [facility] Last Admin: 08/07/18 08:57 Dose: 1 gm Trazodone HCl (Desyrel) 100 mg PO HS [facility] Last Admin: 08/06/18 22:05 Dose: 100 mg Zolpidem Tartrate (Ambien) 5 mg PO HS PRN PRN Reason: Insomnia Last Admin: 08/07/18 01:02 Dose: 5 mg - Labs Labs: 08/07/18 12:26 08/07/18 12:26
--- NOTE | 2018-08-07 18:13 | CP.PCM.PN ---
Subjective - Date & Time of Evaluation Date of Evaluation: 08/07/18 Time of Evaluation: 17:40 Objective - Vital Signs/Intake and Output Vital Signs (last 24 hours): Temp Pulse Resp BP Pulse Ox 97.3 F L 67 20 125/69 98 08/07/18 15:40 08/07/18 15:40 08/07/18 15:40 08/07/18 15:40 08/07/18 15:40 - Medications Medications: Current Medications Acetaminophen (Tylenol 325mg Tab) 650 mg PO Q6 PRN PRN Reason: Headache Last Admin: 08/05/18 05:25 Dose: 650 mg Acetylcysteine (Acetylcysteine 20%) 4 ml INH RBID [facility] Last Admin: 08/07/18 07:14 Dose: 4 ml Albuterol/Ipratropium (Duoneb 3 Mg/0.5 Mg (3 Ml) Ud) 3 ml IH RQ4 [facility] Last Admin: 08/07/18 16:32 Dose: 3 ml Alprazolam (Xanax) 0.5 mg PO Q8@0600,1400,2200 [facility] Last Admin: 08/07/18 13:54 Dose: 0.5 mg Aspirin (Ecotrin) 325 mg PO DAILY [facility] Last Admin: 08/07/18 08:58 Dose: 325 mg Atorvastatin Calcium (Lipitor) 20 mg PO HS [facility] Last Admin: 08/06/18 22:05 Dose: 20 mg Budesonide (Pulmicort Respules) 0.25 mg INH RBID [facility] Last Admin: 08/07/18 07:14 Dose: 0.25 mg Budesonide (Pulmicort Respules) 0.25 mg INH RBID [facility] Last Admin: 08/05/18 19:13 Dose: Not Given Clopidogrel Bisulfate (Plavix) 75 mg PO DAILY [facility] Last Admin: 08/07/18 08:58 Dose: 75 mg Cyanocobalamin (Vitamin B12 1000 Mcg/Ml Inj) 1,000 mcg IM Q14D [facility] Last Admin: 08/04/18 00:52 Dose: Not Given Ergocalciferol (Drisdol 50,000 Intl Units Cap) 1 cap PO MO [facility] Last Admin: 08/04/18 00:50 Dose: Not Given Fluconazole (Diflucan) 100 mg PO DAILY [facility]; Protocol Last Admin: 08/07/18 09:01 Dose: 100 mg Fluticasone Propionate (Flonase) 2 spr PRATIBHA HS PRN PRN Reason: Allergy symptoms Last Admin: 08/04/18 08:53 Dose: 2 spr Home Med (Patient's Own Medication) 5 unit MT TID [facility] Last Admin: 08/07/18 13:55 Dose: 5 unit Hydromorphone HCl (Dilaudid) 0.5 mg IVP Q4 PRN PRN Reason: Pain, severe (8-10) Last Admin: 08/04/18 00:33 Dose: 0.5 mg Azithromycin 500 mg/ Sodium (Chloride) 250 mls @ 250 mls/hr IVPB DAILY@1700 [facility] Last Admin: 08/07/18 16:26 Dose: 250 mls/hr Ceftriaxone Sodium 1 gm/ (Sodium Chloride) 100 mls @ 100 mls/hr IVPB DAILY@1700 [facility] Last Admin: 08/07/18 16:26 Dose: 100 mls/hr Isosorbide Mononitrate (Imdur Er) 30 mg PO DAILY [facility] Last Admin: 08/07/18 08:58 Dose: 30 mg Losartan Potassium (Cozaar) 25 mg PO DAILY [facility] Last Admin: 08/07/18 09:01 Dose: 25 mg Methylprednisolone (Solu-Medrol) 30 mg IVP Q12 [facility] Last Admin: 08/07/18 08:57 Dose: 30 mg Metoprolol Succinate (Toprol Xl) 25 mg PO DAILY [facility] Last Admin: 08/07/18 08:59 Dose: 25 mg Multivitamins/Minerals (Therapeutic-M Tab) 1 tab PO DAILY [facility] Last Admin: 08/07/18 08:58 Dose: 1 tab Nicotine (Nicoderm Cq) 1 patch TD DAILY [facility] Last Admin: 08/07/18 08:58 Dose: 1 patch Nitroglycerin (Nitrostat Sl Tab) 0.4 mg SL DAILY PRN PRN Reason: angina Octreotide Acetate (Sandostatin) 100 mcg SC Q12 [facility] Last Admin: 08/07/18 08:56 Dose: 100 mcg Ondansetron HCl (Zofran Inj) 4 mg IVP Q6 PRN PRN Reason: Nausea/Vomiting Promethazine HCl/Codeine (Phenergan/Codeine Oral Syrup) 10 ml PO Q6 PRN PRN Reason: Cough Last Admin: 08/07/18 01:03 Dose: 10 ml Sodium Chloride (Sodium Chloride Tab) 1 gm PO DAILY [facility] Last Admin: 08/07/18 08:57 Dose: 1 gm Trazodone HCl (Desyrel) 100 mg PO HS [facility] Last Admin: 08/06/18 22:05 Dose: 100 mg Zolpidem Tartrate (Ambien) 5 mg PO HS PRN PRN Reason: Insomnia Last Admin: 08/07/18 01:02 Dose: 5 mg - Labs Labs: 08/07/18 12:26 08/07/18 12:26
--- NOTE | 2018-08-07 22:37 | CP.PCM.PN ---
Subjective - Date & Time of Evaluation Date of Evaluation: 08/07/18 Time of Evaluation: 18:00 - Subjective Subjective: Patient reports increased leg swelling; tolerating diet; working with PT; Objective - Vital Signs/Intake and Output Vital Signs (last 24 hours): Temp Pulse Resp BP Pulse Ox 98.3 F 77 20 132/68 98 08/07/18 19:35 08/07/18 19:35 08/07/18 19:35 08/07/18 19:35 08/07/18 19:35 - Medications Medications: Current Medications Acetaminophen (Tylenol 325mg Tab) 650 mg PO Q6 PRN PRN Reason: Headache Last Admin: 08/05/18 05:25 Dose: 650 mg Acetylcysteine (Acetylcysteine 20%) 4 ml INH RBID [facility] Last Admin: 08/07/18 19:30 Dose: 4 ml Albuterol/Ipratropium (Duoneb 3 Mg/0.5 Mg (3 Ml) Ud) 3 ml IH RQ4 [facility] Last Admin: 08/07/18 19:31 Dose: 3 ml Alprazolam (Xanax) 0.5 mg PO Q8@0600,1400,2200 [facility] Last Admin: 08/07/18 21:50 Dose: 0.5 mg Aspirin (Ecotrin) 325 mg PO DAILY [facility] Last Admin: 08/07/18 08:58 Dose: 325 mg Atorvastatin Calcium (Lipitor) 20 mg PO HS [facility] Last Admin: 08/07/18 21:48 Dose: 20 mg Budesonide (Pulmicort Respules) 0.25 mg INH RBID [facility] Last Admin: 08/07/18 19:31 Dose: 0.25 mg Budesonide (Pulmicort Respules) 0.25 mg INH RBID [facility] Last Admin: 08/05/18 19:13 Dose: Not Given Clopidogrel Bisulfate (Plavix) 75 mg PO DAILY [facility] Last Admin: 08/07/18 08:58 Dose: 75 mg Cyanocobalamin (Vitamin B12 1000 Mcg/Ml Inj) 1,000 mcg IM Q14D [facility] Last Admin: 08/04/18 00:52 Dose: Not Given Ergocalciferol (Drisdol 50,000 Intl Units Cap) 1 cap PO MO [facility] Last Admin: 08/04/18 00:50 Dose: Not Given Fluconazole (Diflucan) 100 mg PO DAILY [facility]; Protocol Last Admin: 08/07/18 09:01 Dose: 100 mg Fluticasone Propionate (Flonase) 2 spr PRATIBHA HS PRN PRN Reason: Allergy symptoms Last Admin: 08/04/18 08:53 Dose: 2 spr Furosemide (Lasix) 20 mg PO Q48H [facility] Home Med (Patient's Own Medication) 5 unit MT TID [facility] Last Admin: 08/07/18 13:55 Dose: 5 unit Hydromorphone HCl (Dilaudid) 0.5 mg IVP Q4 PRN PRN Reason: Pain, severe (8-10) Last Admin: 08/04/18 00:33 Dose: 0.5 mg Azithromycin 500 mg/ Sodium (Chloride) 250 mls @ 250 mls/hr IVPB DAILY@1700 [facility] Last Admin: 08/07/18 16:26 Dose: 250 mls/hr Ceftriaxone Sodium 1 gm/ (Sodium Chloride) 100 mls @ 100 mls/hr IVPB DAILY@1700 [facility] Last Admin: 08/07/18 16:26 Dose: 100 mls/hr Isosorbide Mononitrate (Imdur Er) 30 mg PO DAILY [facility] Last Admin: 08/07/18 08:58 Dose: 30 mg Losartan Potassium (Cozaar) 25 mg PO DAILY [facility] Last Admin: 08/07/18 09:01 Dose: 25 mg Methylprednisolone (Solu-Medrol) 30 mg IVP Q12 [facility] Last Admin: 08/07/18 21:50 Dose: 30 mg Metoprolol Succinate (Toprol Xl) 25 mg PO DAILY [facility] Last Admin: 08/07/18 08:59 Dose: 25 mg Multivitamins/Minerals (Therapeutic-M Tab) 1 tab PO DAILY [facility] Last Admin: 08/07/18 08:58 Dose: 1 tab Nicotine (Nicoderm Cq) 1 patch TD DAILY [facility] Last Admin: 08/07/18 08:58 Dose: 1 patch Nitroglycerin (Nitrostat Sl Tab) 0.4 mg SL DAILY PRN PRN Reason: angina Octreotide Acetate (Sandostatin) 100 mcg SC Q12 [facility] Last Admin: 08/07/18 21:49 Dose: 100 mcg Ondansetron HCl (Zofran Inj) 4 mg IVP Q6 PRN PRN Reason: Nausea/Vomiting Promethazine HCl/Codeine (Phenergan/Codeine Oral Syrup) 10 ml PO Q6 PRN PRN Reason: Cough Last Admin: 08/07/18 01:03 Dose: 10 ml Sodium Chloride (Sodium Chloride Tab) 1 gm PO DAILY [facility] Last Admin: 08/07/18 08:57 Dose: 1 gm Tolvaptan (Samsca) 15 mg PO ONCE ONE Stop: 08/08/18 06:01 Trazodone HCl (Desyrel) 100 mg PO HS [facility] Last Admin: 08/07/18 21:48 Dose: 100 mg Zolpidem Tartrate (Ambien) 5 mg PO HS PRN PRN Reason: Insomnia Last Admin: 08/07/18 01:02 Dose: 5 mg - Labs Labs: 08/07/18 12:26 08/07/18 12:26 - Constitutional Appears: Non-toxic, No Acute Distress - Eye Exam Eye Exam: Normal appearance - Respiratory Exam Respiratory Exam: Rales. absent: Respiratory Distress - Cardiovascular Exam Cardiovascular Exam: RRR. absent: Gallop, Rubs - GI/Abdominal Exam GI & Abdominal Exam: Soft. absent: Distended - Extremities Exam Additional comments: 1+ leg edema - Neurological Exam Neurological Exam: Alert, Awake - Psychiatric Exam Psychiatric exam: Normal Affect, Normal Mood. absent: Agitated - Skin Skin Exam: Warm. absent: Cyanosis Assessment and Plan (1) Hyponatremia Assessment & Plan: Worsened in the setting of increased PO fluid intake; may have SIADH; previously refusing lasix but now agreeable; -Giving single dose of tolvaptan 15 mg; -Starting PO lasix 20 mg every other day; -Continue salt tab 1 g daily; Status: Chronic (2) CHF (congestive heart failure) Assessment & Plan: With some increased edema; will benefit from standing dose of lasix; Status: Chronic (3) Hypertension Assessment & Plan: BP controlled, continue current meds; Status: Chronic
[2018-08-08] MEDS: Albuterol-Ipratrop 3 mg / 0.5 (3 ml) UD IH SCH ×7 (00:37→23:40)
[2018-08-08] MEDS: Promethazine/Cod 6.25mg-10mg/5ml Syr UD PO PRN (00:58)
[2018-08-08] MEDS: Acetylcysteine 20% Inhal Soln (4ml) INH SCH ×2 (08:25→19:38)
[2018-08-08] MEDS: Budesonide 0.25 mg/2 ml Inhal Susp UD INH SCH ×4 (08:25→19:40)
[2018-08-08] MEDS: Aspirin 325 mg EC Tablets PO SCH (08:48)
[2018-08-08] MEDS: MAGIC MOUTHWASH MT SCH ×3 (08:49→16:10)
[2018-08-08] MEDS: Multivitamin With Minerals Tab PO SCH (08:50)
[2018-08-08] MEDS: MethylPREDNISolone 40 mg Vial IVP SCH ×2 (08:50→21:38)
[2018-08-08] MEDS: Metoprolol Succinate 25 mg XL Tab PO SCH (08:50)
[2018-08-08] MEDS: Azithromycin 500 MG in Sodium Chloride 0.9% 250 ML IVPB SCH (16:08)
--- NOTE | 2018-08-08 23:46 | CP.PCM.PN ---
Subjective - Date & Time of Evaluation Date of Evaluation: 08/08/18 Time of Evaluation: 20:00 Objective - Vital Signs/Intake and Output Vital Signs (last 24 hours): Temp Pulse Resp BP Pulse Ox 97.5 F L 93 H 20 127/69 96 08/08/18 21:19 08/08/18 21:19 08/08/18 21:19 08/08/18 21:19 08/08/18 21:19 - Medications Medications: Current Medications Acetaminophen (Tylenol 325mg Tab) 650 mg PO Q6 PRN PRN Reason: Headache Last Admin: 08/05/18 05:25 Dose: 650 mg Acetylcysteine (Acetylcysteine 20%) 4 ml INH RBID [facility] Last Admin: 08/08/18 19:38 Dose: 4 ml Albuterol/Ipratropium (Duoneb 3 Mg/0.5 Mg (3 Ml) Ud) 3 ml IH RQ4 [facility] Last Admin: 08/08/18 23:40 Dose: Not Given Alprazolam (Xanax) 0.5 mg PO Q8@0600,1400,2200 [facility] Last Admin: 08/08/18 22:56 Dose: 0.5 mg Aspirin (Ecotrin) 325 mg PO DAILY [facility] Last Admin: 08/08/18 08:48 Dose: 325 mg Atorvastatin Calcium (Lipitor) 20 mg PO HS [facility] Last Admin: 08/08/18 22:56 Dose: 20 mg Benzocaine/Menthol (Cepacol Sore Throat) 1 stephanie PO Q2 PRN PRN Reason: Sore Throat Budesonide (Pulmicort Respules) 0.25 mg INH RBID [facility] Last Admin: 08/08/18 19:40 Dose: Not Given Clopidogrel Bisulfate (Plavix) 75 mg PO DAILY [facility] Last Admin: 08/08/18 08:49 Dose: 75 mg Cyanocobalamin (Vitamin B12 1000 Mcg/Ml Inj) 1,000 mcg IM Q14D [facility] Last Admin: 08/04/18 00:52 Dose: Not Given Ergocalciferol (Drisdol 50,000 Intl Units Cap) 1 cap PO MO [facility] Last Admin: 08/04/18 00:50 Dose: Not Given Fluconazole (Diflucan) 100 mg PO DAILY [facility]; Protocol Last Admin: 08/08/18 08:48 Dose: 100 mg Fluticasone Propionate (Flonase) 2 spr PRATIBHA HS PRN PRN Reason: Allergy symptoms Last Admin: 08/08/18 21:37 Dose: 2 spr Furosemide (Lasix) 20 mg PO Q48H [facility] Last Admin: 08/08/18 05:51 Dose: 20 mg Home Med (Patient's Own Medication) 5 unit MT TID [facility] Last Admin: 08/08/18 16:10 Dose: 5 unit Hydromorphone HCl (Dilaudid) 0.5 mg IVP Q4 PRN PRN Reason: Pain, severe (8-10) Last Admin: 08/04/18 00:33 Dose: 0.5 mg Azithromycin 500 mg/ Sodium (Chloride) 250 mls @ 250 mls/hr IVPB DAILY@1700 [facility] Last Admin: 08/08/18 16:08 Dose: 250 mls/hr Ceftriaxone Sodium 1 gm/ (Sodium Chloride) 100 mls @ 100 mls/hr IVPB DAILY@1700 [facility] Last Admin: 08/08/18 16:08 Dose: 100 mls/hr Isosorbide Mononitrate (Imdur Er) 30 mg PO DAILY [facility] Last Admin: 08/08/18 08:48 Dose: 30 mg Losartan Potassium (Cozaar) 25 mg PO DAILY [facility] Last Admin: 08/08/18 08:47 Dose: 25 mg Methylprednisolone (Solu-Medrol) 30 mg IVP Q12 [facility] Last Admin: 08/08/18 21:38 Dose: 30 mg Metoprolol Succinate (Toprol Xl) 25 mg PO DAILY [facility] Last Admin: 08/08/18 08:50 Dose: 25 mg Multivitamins/Minerals (Therapeutic-M Tab) 1 tab PO DAILY [facility] Last Admin: 08/08/18 08:50 Dose: 1 tab Nicotine (Nicoderm Cq) 1 patch TD DAILY [facility] Last Admin: 08/08/18 08:48 Dose: 1 patch Nitroglycerin (Nitrostat Sl Tab) 0.4 mg SL DAILY PRN PRN Reason: angina Octreotide Acetate (Sandostatin) 100 mcg SC Q12 [facility] Last Admin: 08/08/18 21:45 Dose: 100 mcg Ondansetron HCl (Zofran Inj) 4 mg IVP Q6 PRN PRN Reason: Nausea/Vomiting Promethazine HCl/Codeine (Phenergan/Codeine Oral Syrup) 10 ml PO Q6 PRN PRN Reason: Cough Last Admin: 08/08/18 00:58 Dose: 10 ml Sodium Chloride (Sodium Chloride Tab) 1 gm PO DAILY [facility] Last Admin: 08/08/18 08:49 Dose: 1 gm Trazodone HCl (Desyrel) 100 mg PO HS [facility] Last Admin: 08/08/18 22:56 Dose: 100 mg Zolpidem Tartrate (Ambien) 5 mg PO HS PRN PRN Reason: Insomnia Last Admin: 08/08/18 00:55 Dose: 5 mg - Labs Labs: 08/07/18 12:26 08/07/18 12:26
[2018-08-09] MEDS: Promethazine/Cod 6.25mg-10mg/5ml Syr UD PO PRN (00:25)
[2018-08-09] MEDS: Benzocaine/Menthol (Cepacol) Lozenge PO PRN ×2 (02:24→14:28)
[2018-08-09] MEDS: Albuterol-Ipratrop 3 mg / 0.5 (3 ml) UD IH SCH ×5 (04:37→19:57)
[2018-08-09] MEDS: MAGIC MOUTHWASH MT SCH ×3 (08:27→22:29)
[2018-08-09] MEDS: Metoprolol Succinate 25 mg XL Tab PO SCH (08:28)
[2018-08-09] MEDS: Aspirin 325 mg EC Tablets PO SCH (08:29)
[2018-08-09] MEDS: Multivitamin With Minerals Tab PO SCH (08:29)
[2018-08-09] MEDS: MethylPREDNISolone 40 mg Vial IVP SCH (08:29)
[2018-08-09] MEDS: Acetylcysteine 20% Inhal Soln (4ml) INH SCH (08:46)
[2018-08-09] MEDS: Budesonide 0.25 mg/2 ml Inhal Susp UD INH SCH ×2 (08:47→19:57)
--- NOTE | 2018-08-09 08:52 | CP.PCM.PN ---
Subjective - Date & Time of Evaluation Date of Evaluation: 08/08/18 Time of Evaluation: 20:00 - Subjective Subjective: Leg swelling much improved; urinating very frequently today; breathing improved; Objective - Vital Signs/Intake and Output Vital Signs (last 24 hours): Temp Pulse Resp BP Pulse Ox 97.4 F L 77 18 109/72 99 08/09/18 08:07 08/09/18 08:30 08/09/18 08:07 08/09/18 08:30 08/09/18 08:07 - Medications Medications: Current Medications Acetaminophen (Tylenol 325mg Tab) 650 mg PO Q6 PRN PRN Reason: Headache Last Admin: 08/05/18 05:25 Dose: 650 mg Acetylcysteine (Acetylcysteine 20%) 4 ml INH RBID [facility] Last Admin: 08/09/18 08:46 Dose: 4 ml Albuterol/Ipratropium (Duoneb 3 Mg/0.5 Mg (3 Ml) Ud) 3 ml IH RQ4 [facility] Last Admin: 08/09/18 08:45 Dose: 3 ml Alprazolam (Xanax) 0.5 mg PO Q8@0600,1400,2200 [facility] Last Admin: 08/09/18 05:07 Dose: 0.5 mg Aspirin (Ecotrin) 325 mg PO DAILY [facility] Last Admin: 08/09/18 08:29 Dose: 325 mg Atorvastatin Calcium (Lipitor) 20 mg PO HS [facility] Last Admin: 08/08/18 22:56 Dose: 20 mg Benzocaine/Menthol (Cepacol Sore Throat) 1 stephanie PO Q2 PRN PRN Reason: Sore Throat Last Admin: 08/09/18 02:24 Dose: 1 stephanie Budesonide (Pulmicort Respules) 0.25 mg INH RBID [facility] Last Admin: 08/09/18 08:47 Dose: 0.25 mg Clopidogrel Bisulfate (Plavix) 75 mg PO DAILY [facility] Last Admin: 08/09/18 08:30 Dose: 75 mg Cyanocobalamin (Vitamin B12 1000 Mcg/Ml Inj) 1,000 mcg IM Q14D [facility] Last Admin: 08/04/18 00:52 Dose: Not Given Ergocalciferol (Drisdol 50,000 Intl Units Cap) 1 cap PO MO [facility] Last Admin: 08/04/18 00:50 Dose: Not Given Fluconazole (Diflucan) 100 mg PO DAILY [facility]; Protocol Last Admin: 08/09/18 08:29 Dose: 100 mg Fluticasone Propionate (Flonase) 2 spr PRATIBHA HS PRN PRN Reason: Allergy symptoms Last Admin: 08/08/18 21:37 Dose: 2 spr Furosemide (Lasix) 20 mg PO Q48H [facility] Last Admin: 08/08/18 05:51 Dose: 20 mg Home Med (Patient's Own Medication) 5 unit MT TID [facility] Last Admin: 08/09/18 08:27 Dose: 5 unit Hydromorphone HCl (Dilaudid) 0.5 mg IVP Q4 PRN PRN Reason: Pain, severe (8-10) Last Admin: 08/04/18 00:33 Dose: 0.5 mg Azithromycin 500 mg/ Sodium (Chloride) 250 mls @ 250 mls/hr IVPB DAILY@1700 [facility] Last Admin: 08/08/18 16:08 Dose: 250 mls/hr Ceftriaxone Sodium 1 gm/ (Sodium Chloride) 100 mls @ 100 mls/hr IVPB DAILY@1700 [facility] Last Admin: 08/08/18 16:08 Dose: 100 mls/hr Isosorbide Mononitrate (Imdur Er) 30 mg PO DAILY [facility] Last Admin: 08/09/18 08:30 Dose: 30 mg Losartan Potassium (Cozaar) 25 mg PO DAILY [facility] Last Admin: 08/09/18 08:30 Dose: 25 mg Methylprednisolone (Solu-Medrol) 30 mg IVP Q12 [facility] Last Admin: 08/09/18 08:29 Dose: 30 mg Metoprolol Succinate (Toprol Xl) 25 mg PO DAILY [facility] Last Admin: 08/09/18 08:28 Dose: 25 mg Multivitamins/Minerals (Therapeutic-M Tab) 1 tab PO DAILY [facility] Last Admin: 08/09/18 08:29 Dose: 1 tab Nicotine (Nicoderm Cq) 1 patch TD DAILY [facility] Last Admin: 08/09/18 08:27 Dose: 1 patch Nitroglycerin (Nitrostat Sl Tab) 0.4 mg SL DAILY PRN PRN Reason: angina Octreotide Acetate (Sandostatin) 100 mcg SC Q12 [facility] Last Admin: 08/09/18 08:47 Dose: 100 mcg Ondansetron HCl (Zofran Inj) 4 mg IVP Q6 PRN PRN Reason: Nausea/Vomiting Promethazine HCl/Codeine (Phenergan/Codeine Oral Syrup) 10 ml PO Q6 PRN PRN Reason: Cough Last Admin: 08/09/18 00:25 Dose: 10 ml Sodium Chloride (Sodium Chloride Tab) 1 gm PO DAILY [facility] Last Admin: 08/09/18 08:30 Dose: 1 gm Trazodone HCl (Desyrel) 100 mg PO HS [facility] Last Admin: 08/08/18 22:56 Dose: 100 mg Zolpidem Tartrate (Ambien) 5 mg PO HS PRN PRN Reason: Insomnia Last Admin: 08/09/18 00:21 Dose: 5 mg - Labs Labs: 08/07/18 12:26 08/07/18 12:26 - Constitutional Appears: Non-toxic, No Acute Distress - Eye Exam Eye Exam: Normal appearance - Respiratory Exam Respiratory Exam: Clear to Ausculation Bilateral. absent: Respiratory Distress - Cardiovascular Exam Cardiovascular Exam: RRR. absent: Gallop, Rubs - GI/Abdominal Exam GI & Abdominal Exam: Soft. absent: Distended - Extremities Exam Additional comments: leg swelling much improved; - Neurological Exam Neurological Exam: Alert, Awake - Psychiatric Exam Psychiatric exam: Normal Mood. absent: Agitated - Skin Skin Exam: Warm. absent: Cyanosis Assessment and Plan (1) Hyponatremia Assessment & Plan: s/p single dose of tolvaptan 15 mg this morning and started on PO lasix 20 mg q4 8h, will continue same; should continue PO fluid restriction <1.5L per day; Status: Chronic (2) CHF (congestive heart failure) Assessment & Plan: Leg swelling improved; continue PO lasix as above; Status: Chronic (3) Hypertension Assessment & Plan: BP controlled, continue current meds; Status: Chronic
--- NOTE | 2018-08-09 10:42 | CP.PCM.PN ---
Subjective - Date & Time of Evaluation Date of Evaluation: 08/09/18 Time of Evaluation: 10:42 - Subjective Subjective: sob improved no chest pains c/o difficulty with swallowing Objective - Vital Signs/Intake and Output Vital Signs (last 24 hours): Temp Pulse Resp BP Pulse Ox 97.4 F L 77 18 109/72 99 08/09/18 09:00 08/09/18 09:00 08/09/18 09:00 08/09/18 09:00 08/09/18 09:00 - Medications Medications: Current Medications Acetaminophen (Tylenol 325mg Tab) 650 mg PO Q6 PRN PRN Reason: Headache Last Admin: 08/05/18 05:25 Dose: 650 mg Albuterol/Ipratropium (Duoneb 3 Mg/0.5 Mg (3 Ml) Ud) 3 ml IH RQ4 [facility] Last Admin: 08/09/18 08:45 Dose: 3 ml Alprazolam (Xanax) 0.5 mg PO Q8@0600,1400,2200 [facility] Last Admin: 08/09/18 05:07 Dose: 0.5 mg Aspirin (Ecotrin) 325 mg PO DAILY [facility] Last Admin: 08/09/18 08:29 Dose: 325 mg Atorvastatin Calcium (Lipitor) 20 mg PO HS [facility] Last Admin: 08/08/18 22:56 Dose: 20 mg Benzocaine/Menthol (Cepacol Sore Throat) 1 stephanie PO Q2 PRN PRN Reason: Sore Throat Last Admin: 08/09/18 02:24 Dose: 1 stephanie Budesonide (Pulmicort Respules) 0.25 mg INH RBID [facility] Last Admin: 08/09/18 08:47 Dose: 0.25 mg Clopidogrel Bisulfate (Plavix) 75 mg PO DAILY [facility] Last Admin: 08/09/18 08:30 Dose: 75 mg Cyanocobalamin (Vitamin B12 1000 Mcg/Ml Inj) 1,000 mcg IM Q14D [facility] Last Admin: 08/04/18 00:52 Dose: Not Given Ergocalciferol (Drisdol 50,000 Intl Units Cap) 1 cap PO MO [facility] Last Admin: 08/04/18 00:50 Dose: Not Given Fluconazole (Diflucan) 100 mg PO DAILY [facility]; Protocol Last Admin: 08/09/18 08:29 Dose: 100 mg Fluticasone Propionate (Flonase) 2 spr PRATIBHA HS PRN PRN Reason: Allergy symptoms Last Admin: 08/08/18 21:37 Dose: 2 spr Furosemide (Lasix) 20 mg PO Q48H [facility] Last Admin: 08/08/18 05:51 Dose: 20 mg Home Med (Patient's Own Medication) 5 unit MT TID [facility] Last Admin: 08/09/18 08:27 Dose: 5 unit Hydromorphone HCl (Dilaudid) 0.5 mg IVP Q4 PRN PRN Reason: Pain, severe (8-10) Last Admin: 08/04/18 00:33 Dose: 0.5 mg Azithromycin 500 mg/ Sodium (Chloride) 250 mls @ 250 mls/hr IVPB DAILY@1700 [facility] Last Admin: 08/08/18 16:08 Dose: 250 mls/hr Ceftriaxone Sodium 1 gm/ (Sodium Chloride) 100 mls @ 100 mls/hr IVPB DAILY@1700 [facility] Last Admin: 08/08/18 16:08 Dose: 100 mls/hr Isosorbide Mononitrate (Imdur Er) 30 mg PO DAILY [facility] Last Admin: 08/09/18 08:30 Dose: 30 mg Losartan Potassium (Cozaar) 25 mg PO DAILY [facility] Last Admin: 08/09/18 08:30 Dose: 25 mg Methylprednisolone (Solu-Medrol) 30 mg IVP DAILY [facility] Metoprolol Succinate (Toprol Xl) 25 mg PO DAILY [facility] Last Admin: 08/09/18 08:28 Dose: 25 mg Multivitamins/Minerals (Therapeutic-M Tab) 1 tab PO DAILY [facility] Last Admin: 08/09/18 08:29 Dose: 1 tab Nicotine (Nicoderm Cq) 1 patch TD DAILY [facility] Last Admin: 08/09/18 08:27 Dose: 1 patch Nitroglycerin (Nitrostat Sl Tab) 0.4 mg SL DAILY PRN PRN Reason: angina Octreotide Acetate (Sandostatin) 100 mcg SC Q12 [facility] Last Admin: 08/09/18 08:47 Dose: 100 mcg Ondansetron HCl (Zofran Inj) 4 mg IVP Q6 PRN PRN Reason: Nausea/Vomiting Promethazine HCl/Codeine (Phenergan/Codeine Oral Syrup) 10 ml PO Q6 PRN PRN Reason: Cough Last Admin: 08/09/18 00:25 Dose: 10 ml Sodium Chloride (Sodium Chloride Tab) 1 gm PO DAILY [facility] Last Admin: 08/09/18 08:30 Dose: 1 gm Trazodone HCl (Desyrel) 100 mg PO HS [facility] Last Admin: 08/08/18 22:56 Dose: 100 mg Zolpidem Tartrate (Ambien) 5 mg PO HS PRN PRN Reason: Insomnia Last Admin: 08/09/18 00:21 Dose: 5 mg - Labs Labs: 08/07/18 12:26 08/07/18 12:26 - Constitutional Appears: No Acute Distress - Head Exam Head Exam: ATRAUMATIC, NORMAL INSPECTION, NORMOCEPHALIC - Eye Exam Eye Exam: EOMI, Normal appearance, PERRL Pupil Exam: NORMAL ACCOMODATION, PERRL - ENT Exam ENT Exam: Mucous Membranes Moist, Normal Exam - Neck Exam Neck Exam: Full ROM, Normal Inspection. absent: Lymphadenopathy - Respiratory Exam Respiratory Exam: Clear to Ausculation Bilateral, NORMAL BREATHING PATTERN - Cardiovascular Exam Cardiovascular Exam: REGULAR RHYTHM, +S1, +S2. absent: Murmur - GI/Abdominal Exam GI & Abdominal Exam: Soft, Normal Bowel Sounds. absent: Tenderness - Rectal Exam Rectal Exam: NORMAL INSPECTION - Extremities Exam Extremities Exam: Full ROM, Normal Capillary Refill, Normal Inspection. absent: Joint Swelling, Pedal Edema - Back Exam Back Exam: NORMAL INSPECTION - Neurological Exam Neurological Exam: Alert, Awake, CN II-XII Intact, Normal Gait, Oriented x3 - Psychiatric Exam Psychiatric exam: Normal Affect, Normal Mood - Skin Skin Exam: Dry, Intact, Normal Color, Warm Assessment and Plan - Assessment and Plan (Free Text) Assessment: copd improving dysphagia s/p acute mi Plan: d/c mucomyst and taper steroids consider gastroenterology evaluation
--- NOTE | 2018-08-09 13:50 | CP.PCM.PN ---
Subjective - Date & Time of Evaluation Date of Evaluation: 08/09/18 Time of Evaluation: 13:00 - Subjective Subjective: NO CHEST PAIN SOB MUCH IMPROVED VERY LITTLE COUGH Objective - Vital Signs/Intake and Output Vital Signs (last 24 hours): Temp Pulse Resp BP Pulse Ox 97.4 F L 77 18 109/72 99 08/09/18 09:00 08/09/18 09:00 08/09/18 09:00 08/09/18 09:00 08/09/18 09:00 - Medications Medications: Current Medications Acetaminophen (Tylenol 325mg Tab) 650 mg PO Q6 PRN PRN Reason: Headache Last Admin: 08/05/18 05:25 Dose: 650 mg Albuterol/Ipratropium (Duoneb 3 Mg/0.5 Mg (3 Ml) Ud) 3 ml IH RQ4 [facility] Last Admin: 08/09/18 11:27 Dose: 3 ml Alprazolam (Xanax) 0.5 mg PO Q8@0600,1400,2200 [facility] Last Admin: 08/09/18 05:07 Dose: 0.5 mg Aspirin (Ecotrin) 325 mg PO DAILY [facility] Last Admin: 08/09/18 08:29 Dose: 325 mg Atorvastatin Calcium (Lipitor) 20 mg PO HS [facility] Last Admin: 08/08/18 22:56 Dose: 20 mg Benzocaine/Menthol (Cepacol Sore Throat) 1 stephanie PO Q2 PRN PRN Reason: Sore Throat Last Admin: 08/09/18 02:24 Dose: 1 stephanie Budesonide (Pulmicort Respules) 0.25 mg INH RBID [facility] Last Admin: 08/09/18 08:47 Dose: 0.25 mg Clopidogrel Bisulfate (Plavix) 75 mg PO DAILY [facility] Last Admin: 08/09/18 08:30 Dose: 75 mg Cyanocobalamin (Vitamin B12 1000 Mcg/Ml Inj) 1,000 mcg IM Q14D [facility] Last Admin: 08/04/18 00:52 Dose: Not Given Ergocalciferol (Drisdol 50,000 Intl Units Cap) 1 cap PO MO [facility] Last Admin: 08/04/18 00:50 Dose: Not Given Fluconazole (Diflucan) 100 mg PO DAILY [facility]; Protocol Last Admin: 08/09/18 08:29 Dose: 100 mg Fluticasone Propionate (Flonase) 2 spr PRATIBHA HS PRN PRN Reason: Allergy symptoms Last Admin: 08/08/18 21:37 Dose: 2 spr Furosemide (Lasix) 20 mg PO Q48H [facility] Last Admin: 08/08/18 05:51 Dose: 20 mg Home Med (Patient's Own Medication) 5 unit MT Q6 [facility] Hydromorphone HCl (Dilaudid) 0.5 mg IVP Q4 PRN PRN Reason: Pain, severe (8-10) Last Admin: 08/04/18 00:33 Dose: 0.5 mg Azithromycin 500 mg/ Sodium (Chloride) 250 mls @ 250 mls/hr IVPB DAILY@1700 [facility] Last Admin: 08/08/18 16:08 Dose: 250 mls/hr Ceftriaxone Sodium 1 gm/ (Sodium Chloride) 100 mls @ 100 mls/hr IVPB DAILY@1700 [facility] Last Admin: 08/08/18 16:08 Dose: 100 mls/hr Isosorbide Mononitrate (Imdur Er) 30 mg PO DAILY [facility] Last Admin: 08/09/18 08:30 Dose: 30 mg Losartan Potassium (Cozaar) 25 mg PO DAILY [facility] Last Admin: 08/09/18 08:30 Dose: 25 mg Methylprednisolone (Solu-Medrol) 30 mg IVP DAILY [facility] Metoprolol Succinate (Toprol Xl) 25 mg PO DAILY [facility] Last Admin: 08/09/18 08:28 Dose: 25 mg Multivitamins/Minerals (Therapeutic-M Tab) 1 tab PO DAILY [facility] Last Admin: 08/09/18 08:29 Dose: 1 tab Nicotine (Nicoderm Cq) 1 patch TD DAILY [facility] Last Admin: 08/09/18 08:27 Dose: 1 patch Nitroglycerin (Nitrostat Sl Tab) 0.4 mg SL DAILY PRN PRN Reason: angina Octreotide Acetate (Sandostatin) 100 mcg SC Q12 [facility] Last Admin: 08/09/18 08:47 Dose: 100 mcg Ondansetron HCl (Zofran Inj) 4 mg IVP Q6 PRN PRN Reason: Nausea/Vomiting Promethazine HCl/Codeine (Phenergan/Codeine Oral Syrup) 10 ml PO Q6 PRN PRN Reason: Cough Last Admin: 08/09/18 00:25 Dose: 10 ml Sodium Chloride (Sodium Chloride Tab) 1 gm PO DAILY [facility] Last Admin: 08/09/18 08:30 Dose: 1 gm Trazodone HCl (Desyrel) 100 mg PO HS [facility] Last Admin: 08/08/18 22:56 Dose: 100 mg Zolpidem Tartrate (Ambien) 5 mg PO HS PRN PRN Reason: Insomnia Last Admin: 08/09/18 00:21 Dose: 5 mg - Labs Labs: 08/07/18 12:26 08/07/18 12:26 - Respiratory Exam Respiratory Exam: Clear to Ausculation Bilateral - Cardiovascular Exam Cardiovascular Exam: REGULAR RHYTHM, +S1, +S2 - Extremities Exam Additional comments: NO LE EDEMA Assessment and Plan - Assessment and Plan (Free Text) Assessment: RECENT AWMI WITH EXTENSION-CHEST PAIN FREE AND STABLE COPD HYPERTENSION HYPERLIPIDEMIA Plan: CONTINUE O2, NITRATES, METOPROLOL, LOSARTAN, ASPIRIN, CLOPIDOGREL, FUROSEMIDE, ATORVASTATIN, ANTIBIOTICS AND COPD MEDS
[2018-08-09] MEDS: Azithromycin 500 MG in Sodium Chloride 0.9% 250 ML IVPB SCH (17:08)
[2018-08-10] MEDS: Albuterol-Ipratrop 3 mg / 0.5 (3 ml) UD IH SCH ×7 (00:28→23:50)
[2018-08-10] MEDS: MAGIC MOUTHWASH MT SCH ×4 (04:00→22:14)
[2018-08-10] MEDS: Promethazine/Cod 6.25mg-10mg/5ml Syr UD PO PRN ×2 (05:48→14:35)
[2018-08-10] MEDS: Budesonide 0.25 mg/2 ml Inhal Susp UD INH SCH ×2 (07:10→19:00)
[2018-08-10] MEDS: MethylPREDNISolone 40 mg Vial IVP SCH (08:15)
[2018-08-10] MEDS: Aspirin 325 mg EC Tablets PO SCH (09:06)
[2018-08-10] MEDS: Metoprolol Succinate 25 mg XL Tab PO SCH (09:07)
[2018-08-10] MEDS: Multivitamin With Minerals Tab PO SCH (09:08)
--- NOTE | 2018-08-10 21:28 | CP.PCM.PN ---
Objective - Vital Signs/Intake and Output Vital Signs (last 24 hours): Temp Pulse Resp BP Pulse Ox 97.7 F 87 20 99/59 L 94 L 08/10/18 20:34 08/10/18 20:34 08/10/18 20:34 08/10/18 20:34 08/10/18 20:34 - Medications Medications: Current Medications Acetaminophen (Tylenol 325mg Tab) 650 mg PO Q6 PRN PRN Reason: Headache Last Admin: 08/05/18 05:25 Dose: 650 mg Albuterol/Ipratropium (Duoneb 3 Mg/0.5 Mg (3 Ml) Ud) 3 ml IH RQ4 [facility] Last Admin: 08/10/18 19:00 Dose: 3 ml Alprazolam (Xanax) 0.5 mg PO Q8@0600,1400,2200 [facility] Last Admin: 08/10/18 14:35 Dose: 0.5 mg Aspirin (Ecotrin) 325 mg PO DAILY [facility] Last Admin: 08/10/18 09:06 Dose: 325 mg Atorvastatin Calcium (Lipitor) 20 mg PO HS [facility] Last Admin: 08/09/18 21:20 Dose: 20 mg Benzocaine/Menthol (Cepacol Sore Throat) 1 stephanie PO Q2 PRN PRN Reason: Sore Throat Last Admin: 08/09/18 14:28 Dose: 1 stephanie Budesonide (Pulmicort Respules) 0.25 mg INH RBID [facility] Last Admin: 08/10/18 19:00 Dose: 0.25 mg Clopidogrel Bisulfate (Plavix) 75 mg PO DAILY [facility] Last Admin: 08/10/18 09:02 Dose: 75 mg Cyanocobalamin (Vitamin B12 1000 Mcg/Ml Inj) 1,000 mcg IM Q14D [facility] Last Admin: 08/04/18 00:52 Dose: Not Given Ergocalciferol (Drisdol 50,000 Intl Units Cap) 1 cap PO MO [facility] Last Admin: 08/04/18 00:50 Dose: Not Given Fluconazole (Diflucan) 100 mg PO DAILY [facility]; Protocol Last Admin: 08/10/18 09:02 Dose: 100 mg Fluticasone Propionate (Flonase) 2 spr PRATIBHA HS PRN PRN Reason: Allergy symptoms Last Admin: 08/08/18 21:37 Dose: 2 spr Furosemide (Lasix) 20 mg PO Q48H [facility] Last Admin: 08/10/18 05:48 Dose: 20 mg Home Med (Patient's Own Medication) 5 unit MT Q6 [facility] Last Admin: 08/10/18 17:29 Dose: 5 unit Hydromorphone HCl (Dilaudid) 0.5 mg IVP Q4 PRN PRN Reason: Pain, severe (8-10) Last Admin: 08/04/18 00:33 Dose: 0.5 mg Ceftriaxone Sodium 1 gm/ (Sodium Chloride) 100 mls @ 100 mls/hr IVPB DAILY@1700 [facility] Last Admin: 08/10/18 17:28 Dose: 100 mls/hr Isosorbide Mononitrate (Imdur Er) 30 mg PO DAILY [facility] Last Admin: 08/10/18 09:06 Dose: 30 mg Losartan Potassium (Cozaar) 25 mg PO DAILY [facility] Last Admin: 08/10/18 09:07 Dose: 25 mg Methylprednisolone (Solu-Medrol) 30 mg IVP DAILY [facility] Last Admin: 08/10/18 08:15 Dose: 30 mg Metoprolol Succinate (Toprol Xl) 25 mg PO DAILY [facility] Last Admin: 08/10/18 09:07 Dose: 25 mg Multivitamins/Minerals (Therapeutic-M Tab) 1 tab PO DAILY [facility] Last Admin: 08/10/18 09:08 Dose: 1 tab Nicotine (Nicoderm Cq) 1 patch TD DAILY [facility] Last Admin: 08/10/18 08:16 Dose: 1 patch Nitroglycerin (Nitrostat Sl Tab) 0.4 mg SL DAILY PRN PRN Reason: angina Octreotide Acetate (Sandostatin) 100 mcg SC Q12 [facility] Last Admin: 08/10/18 08:14 Dose: 100 mcg Ondansetron HCl (Zofran Inj) 4 mg IVP Q6 PRN PRN Reason: Nausea/Vomiting Promethazine HCl/Codeine (Phenergan/Codeine Oral Syrup) 10 ml PO Q6 PRN PRN Reason: Cough Last Admin: 08/10/18 14:35 Dose: 10 ml Sodium Chloride (Sodium Chloride Tab) 1 gm PO DAILY [facility] Last Admin: 08/10/18 09:01 Dose: 1 gm Trazodone HCl (Desyrel) 100 mg PO HS [facility] Last Admin: 08/09/18 21:19 Dose: 100 mg Zolpidem Tartrate (Ambien) 5 mg PO HS PRN PRN Reason: Insomnia Last Admin: 08/09/18 23:23 Dose: 5 mg - Labs Labs: 08/07/18 12:26 08/07/18 12:26 Assessment and Plan (1) Hyponatremia Status: Chronic (2) CHF (congestive heart failure) Status: Chronic (3) Hypertension Status: Chronic
[2018-08-11] MEDS: Promethazine/Cod 6.25mg-10mg/5ml Syr UD PO PRN (01:08)
[2018-08-11] MEDS: Ergocalciferol 50,000 Intl Units Cap PO SCH (01:17)
[2018-08-11] MEDS: Albuterol-Ipratrop 3 mg / 0.5 (3 ml) UD IH SCH ×6 (04:05→23:42)
[2018-08-11] MEDS: MAGIC MOUTHWASH MT SCH ×4 (04:39→22:36)
[2018-08-11 06:31] LABS: BLOOD UREA NITROGEN 31 mg/dl (7-17); CALCIUM 8.5 mg/dL (8.4-10.2); GFR NON-AFRICAN AMERICAN > 60
[2018-08-11] MEDS: Budesonide 0.25 mg/2 ml Inhal Susp UD INH SCH ×2 (07:13→19:53)
--- NOTE | 2018-08-11 08:59 | CP.PCM.PN ---
Subjective - Date & Time of Evaluation Date of Evaluation: 08/11/18 Time of Evaluation: 08:59 - Subjective Subjective: FEELS BETTER NO APPARENT RESPIRATORY DISTRESS VSS WILL CONTINUE CURRENT RX WILL CONTINUE TO FOLLOW WITH YOU Objective - Vital Signs/Intake and Output Vital Signs (last 24 hours): Temp Pulse Resp BP Pulse Ox 98.4 F 73 18 112/67 98 08/11/18 08:00 08/11/18 08:00 08/11/18 08:00 08/11/18 08:00 08/11/18 08:00 - Medications Medications: Current Medications Acetaminophen (Tylenol 325mg Tab) 650 mg PO Q6 PRN PRN Reason: Headache Last Admin: 08/05/18 05:25 Dose: 650 mg Albuterol/Ipratropium (Duoneb 3 Mg/0.5 Mg (3 Ml) Ud) 3 ml IH RQ4 [facility] Last Admin: 08/11/18 07:13 Dose: 3 ml Alprazolam (Xanax) 0.5 mg PO Q8@0600,1400,2200 [facility] Last Admin: 08/11/18 05:43 Dose: 0.5 mg Aspirin (Ecotrin) 325 mg PO DAILY [facility] Last Admin: 08/10/18 09:06 Dose: 325 mg Atorvastatin Calcium (Lipitor) 20 mg PO HS [facility] Last Admin: 08/10/18 22:13 Dose: 20 mg Benzocaine/Menthol (Cepacol Sore Throat) 1 stephanie PO Q2 PRN PRN Reason: Sore Throat Last Admin: 08/09/18 14:28 Dose: 1 stephanie Budesonide (Pulmicort Respules) 0.25 mg INH RBID [facility] Last Admin: 08/11/18 07:13 Dose: 0.25 mg Clopidogrel Bisulfate (Plavix) 75 mg PO DAILY [facility] Last Admin: 08/10/18 09:02 Dose: 75 mg Cyanocobalamin (Vitamin B12 1000 Mcg/Ml Inj) 1,000 mcg IM Q14D [facility] Last Admin: 08/04/18 00:52 Dose: Not Given Ergocalciferol (Drisdol 50,000 Intl Units Cap) 1 cap PO MO [facility] Last Admin: 08/11/18 01:17 Dose: Not Given Fluconazole (Diflucan) 100 mg PO DAILY [facility]; Protocol Last Admin: 08/10/18 09:02 Dose: 100 mg Fluticasone Propionate (Flonase) 2 spr PRATIBHA HS PRN PRN Reason: Allergy symptoms Last Admin: 08/08/18 21:37 Dose: 2 spr Furosemide (Lasix) 20 mg PO Q48H [facility] Last Admin: 08/10/18 05:48 Dose: 20 mg Home Med (Patient's Own Medication) 5 unit MT Q6 [facility] Last Admin: 08/11/18 04:39 Dose: Not Given Hydromorphone HCl (Dilaudid) 0.5 mg IVP Q4 PRN PRN Reason: Pain, severe (8-10) Last Admin: 08/04/18 00:33 Dose: 0.5 mg Ceftriaxone Sodium 1 gm/ (Sodium Chloride) 100 mls @ 100 mls/hr IVPB DAILY@1700 [facility] Last Admin: 08/10/18 17:28 Dose: 100 mls/hr Isosorbide Mononitrate (Imdur Er) 30 mg PO DAILY [facility] Last Admin: 08/10/18 09:06 Dose: 30 mg Losartan Potassium (Cozaar) 25 mg PO DAILY [facility] Last Admin: 08/10/18 09:07 Dose: 25 mg Methylprednisolone (Solu-Medrol) 30 mg IVP DAILY [facility] Last Admin: 08/10/18 08:15 Dose: 30 mg Metoprolol Succinate (Toprol Xl) 25 mg PO DAILY [facility] Last Admin: 08/10/18 09:07 Dose: 25 mg Multivitamins/Minerals (Therapeutic-M Tab) 1 tab PO DAILY [facility] Last Admin: 08/10/18 09:08 Dose: 1 tab Nicotine (Nicoderm Cq) 1 patch TD DAILY [facility] Last Admin: 08/10/18 08:16 Dose: 1 patch Nitroglycerin (Nitrostat Sl Tab) 0.4 mg SL DAILY PRN PRN Reason: angina Octreotide Acetate (Sandostatin) 100 mcg SC Q12 [facility] Last Admin: 08/10/18 22:14 Dose: 100 mcg Ondansetron HCl (Zofran Inj) 4 mg IVP Q6 PRN PRN Reason: Nausea/Vomiting Promethazine HCl/Codeine (Phenergan/Codeine Oral Syrup) 10 ml PO Q6 PRN PRN Reason: Cough Last Admin: 08/11/18 01:08 Dose: 10 ml Sodium Chloride (Sodium Chloride Tab) 1 gm PO DAILY [facility] Last Admin: 08/10/18 09:01 Dose: 1 gm Trazodone HCl (Desyrel) 100 mg PO HS [facility] Last Admin: 08/10/18 22:13 Dose: 100 mg Zolpidem Tartrate (Ambien) 5 mg PO HS PRN PRN Reason: Insomnia Last Admin: 08/11/18 01:07 Dose: 5 mg - Labs Labs: 08/07/18 12:26 08/11/18 05:30
[2018-08-11] MEDS: Aspirin 325 mg EC Tablets PO SCH (10:08)
[2018-08-11] MEDS: MethylPREDNISolone 40 mg Vial IVP SCH (10:09)
[2018-08-11] MEDS: Multivitamin With Minerals Tab PO SCH (10:10)
[2018-08-11] MEDS: Metoprolol Succinate 25 mg XL Tab PO SCH (10:10)
--- NOTE | 2018-08-11 12:05 | CP.PCM.PN ---
Subjective - Date & Time of Evaluation Date of Evaluation: 08/11/18 Time of Evaluation: 11:00 - Subjective Subjective: NO CHEST PAIN Objective - Vital Signs/Intake and Output Vital Signs (last 24 hours): Temp Pulse Resp BP Pulse Ox 98.4 F 75 18 114/64 98 08/11/18 08:00 08/11/18 10:10 08/11/18 08:00 08/11/18 10:10 08/11/18 08:00 - Medications Medications: Current Medications Acetaminophen (Tylenol 325mg Tab) 650 mg PO Q6 PRN PRN Reason: Headache Last Admin: 08/05/18 05:25 Dose: 650 mg Albuterol/Ipratropium (Duoneb 3 Mg/0.5 Mg (3 Ml) Ud) 3 ml IH RQ4 [facility] Last Admin: 08/11/18 11:03 Dose: 3 ml Alprazolam (Xanax) 0.5 mg PO Q8@0600,1400,2200 [facility] Last Admin: 08/11/18 05:43 Dose: 0.5 mg Aspirin (Ecotrin) 325 mg PO DAILY [facility] Last Admin: 08/11/18 10:08 Dose: 325 mg Atorvastatin Calcium (Lipitor) 20 mg PO HS [facility] Last Admin: 08/10/18 22:13 Dose: 20 mg Benzocaine/Menthol (Cepacol Sore Throat) 1 stephanie PO Q2 PRN PRN Reason: Sore Throat Last Admin: 08/09/18 14:28 Dose: 1 stephanie Budesonide (Pulmicort Respules) 0.25 mg INH RBID [facility] Last Admin: 08/11/18 07:13 Dose: 0.25 mg Clopidogrel Bisulfate (Plavix) 75 mg PO DAILY [facility] Last Admin: 08/11/18 10:09 Dose: 75 mg Cyanocobalamin (Vitamin B12 1000 Mcg/Ml Inj) 1,000 mcg IM Q14D [facility] Last Admin: 08/04/18 00:52 Dose: Not Given Ergocalciferol (Drisdol 50,000 Intl Units Cap) 1 cap PO MO [facility] Last Admin: 08/11/18 01:17 Dose: Not Given Fluconazole (Diflucan) 100 mg PO DAILY [facility]; Protocol Last Admin: 08/11/18 10:08 Dose: 100 mg Fluticasone Propionate (Flonase) 2 spr PRATIBHA HS PRN PRN Reason: Allergy symptoms Last Admin: 08/08/18 21:37 Dose: 2 spr Furosemide (Lasix) 20 mg PO Q48H [facility] Last Admin: 08/10/18 05:48 Dose: 20 mg Home Med (Patient's Own Medication) 5 unit MT Q6 [facility] Last Admin: 08/11/18 10:11 Dose: Not Given Hydromorphone HCl (Dilaudid) 0.5 mg IVP Q4 PRN PRN Reason: Pain, severe (8-10) Last Admin: 08/04/18 00:33 Dose: 0.5 mg Ceftriaxone Sodium 1 gm/ (Sodium Chloride) 100 mls @ 100 mls/hr IVPB DAILY@1700 [facility] Last Admin: 08/10/18 17:28 Dose: 100 mls/hr Isosorbide Mononitrate (Imdur Er) 30 mg PO DAILY [facility] Last Admin: 08/11/18 10:09 Dose: 30 mg Losartan Potassium (Cozaar) 25 mg PO DAILY [facility] Last Admin: 08/11/18 10:08 Dose: 25 mg Methylprednisolone (Solu-Medrol) 30 mg IVP DAILY [facility] Last Admin: 08/11/18 10:09 Dose: 30 mg Metoprolol Succinate (Toprol Xl) 25 mg PO DAILY [facility] Last Admin: 08/11/18 10:10 Dose: 25 mg Multivitamins/Minerals (Therapeutic-M Tab) 1 tab PO DAILY [facility] Last Admin: 08/11/18 10:10 Dose: 1 tab Nicotine (Nicoderm Cq) 1 patch TD DAILY [facility] Last Admin: 08/11/18 10:09 Dose: 1 patch Nitroglycerin (Nitrostat Sl Tab) 0.4 mg SL DAILY PRN PRN Reason: angina Octreotide Acetate (Sandostatin) 100 mcg SC Q12 [facility] Last Admin: 08/11/18 10:21 Dose: 100 mcg Ondansetron HCl (Zofran Inj) 4 mg IVP Q6 PRN PRN Reason: Nausea/Vomiting Last Admin: 08/11/18 09:31 Dose: 4 mg Promethazine HCl/Codeine (Phenergan/Codeine Oral Syrup) 10 ml PO Q6 PRN PRN Reason: Cough Last Admin: 08/11/18 01:08 Dose: 10 ml Sodium Chloride (Sodium Chloride Tab) 1 gm PO DAILY [facility] Last Admin: 08/11/18 10:09 Dose: 1 gm Trazodone HCl (Desyrel) 100 mg PO HS [facility] Last Admin: 08/10/18 22:13 Dose: 100 mg Zolpidem Tartrate (Ambien) 5 mg PO HS PRN PRN Reason: Insomnia Last Admin: 08/11/18 01:07 Dose: 5 mg - Labs Labs: 08/07/18 12:26 08/11/18 05:30 - Respiratory Exam Respiratory Exam: Clear to Ausculation Bilateral - Cardiovascular Exam Cardiovascular Exam: REGULAR RHYTHM, +S1, +S2 Assessment and Plan - Assessment and Plan (Free Text) Assessment: CAD HYPERTENSION HYPERLIPIDEMIA COPD Plan: CONTINUE PRESENT TX CONTINUE ARCELIA
--- NOTE | 2018-08-11 17:35 | CP.PCM.PN ---
Subjective - Date & Time of Evaluation Date of Evaluation: 08/09/18 Time of Evaluation: 17:35 Objective - Vital Signs/Intake and Output Vital Signs (last 24 hours): Temp Pulse Resp BP Pulse Ox 97.5 F L 87 20 107/62 95 08/11/18 15:37 08/11/18 15:37 08/11/18 15:37 08/11/18 15:37 08/11/18 15:37 - Medications Medications: Current Medications Acetaminophen (Tylenol 325mg Tab) 650 mg PO Q6 PRN PRN Reason: Headache Last Admin: 08/05/18 05:25 Dose: 650 mg Albuterol/Ipratropium (Duoneb 3 Mg/0.5 Mg (3 Ml) Ud) 3 ml IH RQ4 [facility] Last Admin: 08/11/18 15:53 Dose: 3 ml Alprazolam (Xanax) 0.5 mg PO Q8@0600,1400,2200 [facility] Last Admin: 08/11/18 14:51 Dose: 0.5 mg Aspirin (Ecotrin) 325 mg PO DAILY [facility] Last Admin: 08/11/18 10:08 Dose: 325 mg Atorvastatin Calcium (Lipitor) 20 mg PO HS [facility] Last Admin: 08/10/18 22:13 Dose: 20 mg Benzocaine/Menthol (Cepacol Sore Throat) 1 stephanie PO Q2 PRN PRN Reason: Sore Throat Last Admin: 08/09/18 14:28 Dose: 1 stephanie Budesonide (Pulmicort Respules) 0.25 mg INH RBID [facility] Last Admin: 08/11/18 07:13 Dose: 0.25 mg Clopidogrel Bisulfate (Plavix) 75 mg PO DAILY [facility] Last Admin: 08/11/18 10:09 Dose: 75 mg Cyanocobalamin (Vitamin B12 1000 Mcg/Ml Inj) 1,000 mcg IM Q14D [facility] Last Admin: 08/04/18 00:52 Dose: Not Given Ergocalciferol (Drisdol 50,000 Intl Units Cap) 1 cap PO MO [facility] Last Admin: 08/11/18 01:17 Dose: Not Given Fluticasone Propionate (Flonase) 2 spr PRATIBHA HS PRN PRN Reason: Allergy symptoms Last Admin: 08/08/18 21:37 Dose: 2 spr Furosemide (Lasix) 20 mg PO Q48H [facility] Last Admin: 08/10/18 05:48 Dose: 20 mg Home Med (Patient's Own Medication) 5 unit MT Q6 [facility] Last Admin: 08/11/18 10:11 Dose: Not Given Hydromorphone HCl (Dilaudid) 0.5 mg IVP Q4 PRN PRN Reason: Pain, severe (8-10) Last Admin: 08/04/18 00:33 Dose: 0.5 mg Isosorbide Mononitrate (Imdur Er) 30 mg PO DAILY [facility] Last Admin: 08/11/18 10:09 Dose: 30 mg Losartan Potassium (Cozaar) 25 mg PO DAILY [facility] Last Admin: 08/11/18 10:08 Dose: 25 mg Methylprednisolone (Solu-Medrol) 30 mg IVP DAILY [facility] Last Admin: 08/11/18 10:09 Dose: 30 mg Metoprolol Succinate (Toprol Xl) 25 mg PO DAILY [facility] Last Admin: 08/11/18 10:10 Dose: 25 mg Multivitamins/Minerals (Therapeutic-M Tab) 1 tab PO DAILY [facility] Last Admin: 08/11/18 10:10 Dose: 1 tab Nicotine (Nicoderm Cq) 1 patch TD DAILY [facility] Last Admin: 08/11/18 10:09 Dose: 1 patch Nitroglycerin (Nitrostat Sl Tab) 0.4 mg SL DAILY PRN PRN Reason: angina Octreotide Acetate (Sandostatin) 100 mcg SC Q12 [facility] Last Admin: 08/11/18 10:21 Dose: 100 mcg Ondansetron HCl (Zofran Inj) 4 mg IVP Q6 PRN PRN Reason: Nausea/Vomiting Last Admin: 08/11/18 09:31 Dose: 4 mg Promethazine HCl/Codeine (Phenergan/Codeine Oral Syrup) 10 ml PO Q6 PRN PRN Reason: Cough Last Admin: 08/11/18 01:08 Dose: 10 ml Sodium Chloride (Sodium Chloride Tab) 1 gm PO DAILY [facility] Last Admin: 08/11/18 10:09 Dose: 1 gm Trazodone HCl (Desyrel) 100 mg PO HS [facility] Last Admin: 08/10/18 22:13 Dose: 100 mg Zolpidem Tartrate (Ambien) 5 mg PO HS PRN PRN Reason: Insomnia Last Admin: 08/11/18 01:07 Dose: 5 mg - Labs Labs: 08/07/18 12:26 08/11/18 05:30
--- NOTE | 2018-08-11 17:36 | CP.PCM.PN ---
Subjective - Date & Time of Evaluation Date of Evaluation: 08/10/18 Time of Evaluation: 19:15 Objective - Vital Signs/Intake and Output Vital Signs (last 24 hours): Temp Pulse Resp BP Pulse Ox 97.5 F L 87 20 107/62 95 08/11/18 15:37 08/11/18 15:37 08/11/18 15:37 08/11/18 15:37 08/11/18 15:37 - Medications Medications: Current Medications Acetaminophen (Tylenol 325mg Tab) 650 mg PO Q6 PRN PRN Reason: Headache Last Admin: 08/05/18 05:25 Dose: 650 mg Albuterol/Ipratropium (Duoneb 3 Mg/0.5 Mg (3 Ml) Ud) 3 ml IH RQ4 [facility] Last Admin: 08/11/18 15:53 Dose: 3 ml Alprazolam (Xanax) 0.5 mg PO Q8@0600,1400,2200 [facility] Last Admin: 08/11/18 14:51 Dose: 0.5 mg Aspirin (Ecotrin) 325 mg PO DAILY [facility] Last Admin: 08/11/18 10:08 Dose: 325 mg Atorvastatin Calcium (Lipitor) 20 mg PO HS [facility] Last Admin: 08/10/18 22:13 Dose: 20 mg Benzocaine/Menthol (Cepacol Sore Throat) 1 stephanie PO Q2 PRN PRN Reason: Sore Throat Last Admin: 08/09/18 14:28 Dose: 1 stephanie Budesonide (Pulmicort Respules) 0.25 mg INH RBID [facility] Last Admin: 08/11/18 07:13 Dose: 0.25 mg Clopidogrel Bisulfate (Plavix) 75 mg PO DAILY [facility] Last Admin: 08/11/18 10:09 Dose: 75 mg Cyanocobalamin (Vitamin B12 1000 Mcg/Ml Inj) 1,000 mcg IM Q14D [facility] Last Admin: 08/04/18 00:52 Dose: Not Given Ergocalciferol (Drisdol 50,000 Intl Units Cap) 1 cap PO MO [facility] Last Admin: 08/11/18 01:17 Dose: Not Given Fluticasone Propionate (Flonase) 2 spr PRATIBHA HS PRN PRN Reason: Allergy symptoms Last Admin: 08/08/18 21:37 Dose: 2 spr Furosemide (Lasix) 20 mg PO Q48H [facility] Last Admin: 08/10/18 05:48 Dose: 20 mg Home Med (Patient's Own Medication) 5 unit MT Q6 [facility] Last Admin: 08/11/18 10:11 Dose: Not Given Hydromorphone HCl (Dilaudid) 0.5 mg IVP Q4 PRN PRN Reason: Pain, severe (8-10) Last Admin: 08/04/18 00:33 Dose: 0.5 mg Isosorbide Mononitrate (Imdur Er) 30 mg PO DAILY [facility] Last Admin: 08/11/18 10:09 Dose: 30 mg Losartan Potassium (Cozaar) 25 mg PO DAILY [facility] Last Admin: 08/11/18 10:08 Dose: 25 mg Methylprednisolone (Solu-Medrol) 30 mg IVP DAILY [facility] Last Admin: 08/11/18 10:09 Dose: 30 mg Metoprolol Succinate (Toprol Xl) 25 mg PO DAILY [facility] Last Admin: 08/11/18 10:10 Dose: 25 mg Multivitamins/Minerals (Therapeutic-M Tab) 1 tab PO DAILY [facility] Last Admin: 08/11/18 10:10 Dose: 1 tab Nicotine (Nicoderm Cq) 1 patch TD DAILY [facility] Last Admin: 08/11/18 10:09 Dose: 1 patch Nitroglycerin (Nitrostat Sl Tab) 0.4 mg SL DAILY PRN PRN Reason: angina Octreotide Acetate (Sandostatin) 100 mcg SC Q12 [facility] Last Admin: 08/11/18 10:21 Dose: 100 mcg Ondansetron HCl (Zofran Inj) 4 mg IVP Q6 PRN PRN Reason: Nausea/Vomiting Last Admin: 08/11/18 09:31 Dose: 4 mg Promethazine HCl/Codeine (Phenergan/Codeine Oral Syrup) 10 ml PO Q6 PRN PRN Reason: Cough Last Admin: 08/11/18 01:08 Dose: 10 ml Sodium Chloride (Sodium Chloride Tab) 1 gm PO DAILY [facility] Last Admin: 08/11/18 10:09 Dose: 1 gm Trazodone HCl (Desyrel) 100 mg PO HS [facility] Last Admin: 08/10/18 22:13 Dose: 100 mg Zolpidem Tartrate (Ambien) 5 mg PO HS PRN PRN Reason: Insomnia Last Admin: 08/11/18 01:07 Dose: 5 mg - Labs Labs: 08/07/18 12:26 08/11/18 05:30
--- NOTE | 2018-08-11 17:37 | CP.PCM.PN ---
Subjective - Date & Time of Evaluation Date of Evaluation: 08/11/18 Time of Evaluation: 16:30 Objective - Vital Signs/Intake and Output Vital Signs (last 24 hours): Temp Pulse Resp BP Pulse Ox 97.5 F L 87 20 107/62 95 08/11/18 15:37 08/11/18 15:37 08/11/18 15:37 08/11/18 15:37 08/11/18 15:37 - Medications Medications: Current Medications Acetaminophen (Tylenol 325mg Tab) 650 mg PO Q6 PRN PRN Reason: Headache Last Admin: 08/05/18 05:25 Dose: 650 mg Albuterol/Ipratropium (Duoneb 3 Mg/0.5 Mg (3 Ml) Ud) 3 ml IH RQ4 [facility] Last Admin: 08/11/18 15:53 Dose: 3 ml Alprazolam (Xanax) 0.5 mg PO Q8@0600,1400,2200 [facility] Last Admin: 08/11/18 14:51 Dose: 0.5 mg Aspirin (Ecotrin) 325 mg PO DAILY [facility] Last Admin: 08/11/18 10:08 Dose: 325 mg Atorvastatin Calcium (Lipitor) 20 mg PO HS [facility] Last Admin: 08/10/18 22:13 Dose: 20 mg Benzocaine/Menthol (Cepacol Sore Throat) 1 stephanie PO Q2 PRN PRN Reason: Sore Throat Last Admin: 08/09/18 14:28 Dose: 1 stephanie Budesonide (Pulmicort Respules) 0.25 mg INH RBID [facility] Last Admin: 08/11/18 07:13 Dose: 0.25 mg Clopidogrel Bisulfate (Plavix) 75 mg PO DAILY [facility] Last Admin: 08/11/18 10:09 Dose: 75 mg Cyanocobalamin (Vitamin B12 1000 Mcg/Ml Inj) 1,000 mcg IM Q14D [facility] Last Admin: 08/04/18 00:52 Dose: Not Given Ergocalciferol (Drisdol 50,000 Intl Units Cap) 1 cap PO MO [facility] Last Admin: 08/11/18 01:17 Dose: Not Given Fluticasone Propionate (Flonase) 2 spr PRATIBHA HS PRN PRN Reason: Allergy symptoms Last Admin: 08/08/18 21:37 Dose: 2 spr Furosemide (Lasix) 20 mg PO Q48H [facility] Last Admin: 08/10/18 05:48 Dose: 20 mg Home Med (Patient's Own Medication) 5 unit MT Q6 [facility] Last Admin: 08/11/18 10:11 Dose: Not Given Hydromorphone HCl (Dilaudid) 0.5 mg IVP Q4 PRN PRN Reason: Pain, severe (8-10) Last Admin: 08/04/18 00:33 Dose: 0.5 mg Isosorbide Mononitrate (Imdur Er) 30 mg PO DAILY [facility] Last Admin: 08/11/18 10:09 Dose: 30 mg Losartan Potassium (Cozaar) 25 mg PO DAILY [facility] Last Admin: 08/11/18 10:08 Dose: 25 mg Methylprednisolone (Solu-Medrol) 30 mg IVP DAILY [facility] Last Admin: 08/11/18 10:09 Dose: 30 mg Metoprolol Succinate (Toprol Xl) 25 mg PO DAILY [facility] Last Admin: 08/11/18 10:10 Dose: 25 mg Multivitamins/Minerals (Therapeutic-M Tab) 1 tab PO DAILY [facility] Last Admin: 08/11/18 10:10 Dose: 1 tab Nicotine (Nicoderm Cq) 1 patch TD DAILY [facility] Last Admin: 08/11/18 10:09 Dose: 1 patch Nitroglycerin (Nitrostat Sl Tab) 0.4 mg SL DAILY PRN PRN Reason: angina Octreotide Acetate (Sandostatin) 100 mcg SC Q12 [facility] Last Admin: 08/11/18 10:21 Dose: 100 mcg Ondansetron HCl (Zofran Inj) 4 mg IVP Q6 PRN PRN Reason: Nausea/Vomiting Last Admin: 08/11/18 09:31 Dose: 4 mg Promethazine HCl/Codeine (Phenergan/Codeine Oral Syrup) 10 ml PO Q6 PRN PRN Reason: Cough Last Admin: 08/11/18 01:08 Dose: 10 ml Sodium Chloride (Sodium Chloride Tab) 1 gm PO DAILY [facility] Last Admin: 08/11/18 10:09 Dose: 1 gm Trazodone HCl (Desyrel) 100 mg PO HS [facility] Last Admin: 08/10/18 22:13 Dose: 100 mg Zolpidem Tartrate (Ambien) 5 mg PO HS PRN PRN Reason: Insomnia Last Admin: 08/11/18 01:07 Dose: 5 mg - Labs Labs: 08/07/18 12:26 08/11/18 05:30
[2018-08-11] MEDS: Benzocaine/Menthol (Cepacol) Lozenge PO PRN (19:42)
[2018-08-12] MEDS: Albuterol-Ipratrop 3 mg / 0.5 (3 ml) UD IH SCH ×6 (03:36→23:23)
[2018-08-12] MEDS: MAGIC MOUTHWASH MT SCH ×4 (04:30→22:02)
[2018-08-12] MEDS: Budesonide 0.25 mg/2 ml Inhal Susp UD INH SCH ×2 (07:40→19:16)
[2018-08-12] MEDS: MethylPREDNISolone 40 mg Vial IVP SCH (08:33)
[2018-08-12] MEDS: Aspirin 325 mg EC Tablets PO SCH (08:35)
[2018-08-12] MEDS: Multivitamin With Minerals Tab PO SCH (08:37)
[2018-08-12] MEDS: Metoprolol Succinate 25 mg XL Tab PO SCH (08:37)
--- NOTE | 2018-08-12 09:14 | CP.PCM.PN ---
Subjective - Date & Time of Evaluation Date of Evaluation: 08/12/18 Time of Evaluation: 09:14 - Subjective Subjective: SOB IMPROVED ANXIOUS ABOUT DISCONTINUATION OF IV STEROIDS AND BEGINNING PO Objective - Vital Signs/Intake and Output Vital Signs (last 24 hours): Temp Pulse Resp BP Pulse Ox 97.5 F L 68 20 99/57 L 100 08/12/18 08:03 08/12/18 08:37 08/12/18 08:03 08/12/18 08:37 08/12/18 08:03 - Medications Medications: Current Medications Acetaminophen (Tylenol 325mg Tab) 650 mg PO Q6 PRN PRN Reason: Headache Last Admin: 08/05/18 05:25 Dose: 650 mg Albuterol/Ipratropium (Duoneb 3 Mg/0.5 Mg (3 Ml) Ud) 3 ml IH RQ4 [facility] Last Admin: 08/12/18 07:40 Dose: Not Given Alprazolam (Xanax) 0.5 mg PO Q8@0600,1400,2200 [facility] Last Admin: 08/12/18 06:17 Dose: 0.5 mg Aspirin (Ecotrin) 325 mg PO DAILY [facility] Last Admin: 08/12/18 08:35 Dose: 325 mg Atorvastatin Calcium (Lipitor) 20 mg PO HS [facility] Last Admin: 08/11/18 22:36 Dose: 20 mg Benzocaine/Menthol (Cepacol Sore Throat) 1 stephanie PO Q2 PRN PRN Reason: Sore Throat Last Admin: 08/11/18 19:42 Dose: 1 stephanie Budesonide (Pulmicort Respules) 0.25 mg INH RBID [facility] Last Admin: 08/12/18 07:40 Dose: Not Given Clopidogrel Bisulfate (Plavix) 75 mg PO DAILY [facility] Last Admin: 08/12/18 08:35 Dose: 75 mg Cyanocobalamin (Vitamin B12 1000 Mcg/Ml Inj) 1,000 mcg IM Q14D [facility] Last Admin: 08/04/18 00:52 Dose: Not Given Ergocalciferol (Drisdol 50,000 Intl Units Cap) 1 cap PO MO [facility] Last Admin: 08/11/18 01:17 Dose: Not Given Fluticasone Propionate (Flonase) 2 spr PRATIBHA HS PRN PRN Reason: Allergy symptoms Last Admin: 08/08/18 21:37 Dose: 2 spr Furosemide (Lasix) 20 mg PO Q48H [facility] Last Admin: 08/12/18 06:22 Dose: 20 mg Home Med (Patient's Own Medication) 5 unit MT Q6 [facility] Last Admin: 08/12/18 09:05 Dose: 5 unit Hydromorphone HCl (Dilaudid) 0.5 mg IVP Q4 PRN PRN Reason: Pain, severe (8-10) Last Admin: 08/12/18 02:02 Dose: 0.5 mg Isosorbide Mononitrate (Imdur Er) 30 mg PO DAILY [facility] Last Admin: 08/12/18 08:35 Dose: 30 mg Losartan Potassium (Cozaar) 25 mg PO DAILY [facility] Last Admin: 08/12/18 08:34 Dose: 25 mg Methylprednisolone (Solu-Medrol) 30 mg IVP DAILY [facility] Last Admin: 08/12/18 08:33 Dose: 30 mg Metoprolol Succinate (Toprol Xl) 25 mg PO DAILY [facility] Last Admin: 08/12/18 08:37 Dose: 25 mg Multivitamins/Minerals (Therapeutic-M Tab) 1 tab PO DAILY [facility] Last Admin: 08/12/18 08:37 Dose: 1 tab Nicotine (Nicoderm Cq) 1 patch TD DAILY [facility] Last Admin: 08/12/18 08:34 Dose: 1 patch Nitroglycerin (Nitrostat Sl Tab) 0.4 mg SL DAILY PRN PRN Reason: angina Octreotide Acetate (Sandostatin) 100 mcg SC Q12 [facility] Last Admin: 08/12/18 08:37 Dose: 100 mcg Ondansetron HCl (Zofran Inj) 4 mg IVP Q6 PRN PRN Reason: Nausea/Vomiting Last Admin: 08/12/18 09:00 Dose: 4 mg Promethazine HCl/Codeine (Phenergan/Codeine Oral Syrup) 10 ml PO Q6 PRN PRN Reason: Cough Last Admin: 08/11/18 01:08 Dose: 10 ml Sodium Chloride (Sodium Chloride Tab) 1 gm PO DAILY [facility] Last Admin: 08/12/18 08:36 Dose: 1 gm Trazodone HCl (Desyrel) 100 mg PO HS [facility] Last Admin: 08/11/18 22:36 Dose: 100 mg Zolpidem Tartrate (Ambien) 5 mg PO HS PRN PRN Reason: Insomnia Last Admin: 08/11/18 01:07 Dose: 5 mg - Labs Labs: 08/07/18 12:26 08/11/18 05:30 - Constitutional Appears: No Acute Distress - Head Exam Head Exam: ATRAUMATIC, NORMAL INSPECTION, NORMOCEPHALIC - Eye Exam Eye Exam: EOMI, Normal appearance, PERRL Pupil Exam: NORMAL ACCOMODATION, PERRL - ENT Exam ENT Exam: Mucous Membranes Moist, Normal Exam - Neck Exam Neck Exam: Full ROM, Normal Inspection. absent: Lymphadenopathy - Respiratory Exam Respiratory Exam: Clear to Ausculation Bilateral, Prolonged Expiratory Phase, NORMAL BREATHING PATTERN - Cardiovascular Exam Cardiovascular Exam: REGULAR RHYTHM, +S1, +S2. absent: Murmur - GI/Abdominal Exam GI & Abdominal Exam: Soft, Normal Bowel Sounds. absent: Tenderness - Rectal Exam Rectal Exam: NORMAL INSPECTION - Extremities Exam Extremities Exam: Full ROM, Normal Capillary Refill, Normal Inspection. absent: Joint Swelling, Pedal Edema - Back Exam Back Exam: NORMAL INSPECTION - Neurological Exam Neurological Exam: Alert, Awake, CN II-XII Intact, Normal Gait, Oriented x3 - Psychiatric Exam Psychiatric exam: Normal Affect, Normal Mood - Skin Skin Exam: Dry, Intact, Normal Color, Warm Assessment and Plan - Assessment and Plan (Free Text) Assessment: COPD--IMPROVING ANXIETY ASHD Plan: TAPER STEROIDS AND SWITCH TO PO IF OKAY WITH DR FITZGERALD
[2018-08-13] MEDS: Promethazine/Cod 6.25mg-10mg/5ml Syr UD PO PRN (03:42)
[2018-08-13] MEDS: MAGIC MOUTHWASH MT SCH ×4 (03:43→22:47)
[2018-08-13] MEDS: Albuterol-Ipratrop 3 mg / 0.5 (3 ml) UD IH SCH ×6 (03:49→23:35)
[2018-08-13] MEDS: Budesonide 0.25 mg/2 ml Inhal Susp UD INH SCH ×2 (07:14→19:14)
--- NOTE | 2018-08-13 08:20 | CP.PCM.PN ---
Subjective - Date & Time of Evaluation Date of Evaluation: 08/13/18 Time of Evaluation: 08:20 - Subjective Subjective: NO NEW CLINICAL FINDINGS PHYSICAL EXAM UNCHANGED IMP-COPD--IMPROVED PLAN --D/C IV STEROIDS AND BEGIN PO Objective - Vital Signs/Intake and Output Vital Signs (last 24 hours): Temp Pulse Resp BP Pulse Ox 97.7 F 96 H 18 99/51 L 96 08/13/18 07:57 08/13/18 07:57 08/13/18 07:57 08/13/18 07:57 08/13/18 07:57 - Medications Medications: Current Medications Acetaminophen (Tylenol 325mg Tab) 650 mg PO Q6 PRN PRN Reason: Headache Last Admin: 08/05/18 05:25 Dose: 650 mg Albuterol/Ipratropium (Duoneb 3 Mg/0.5 Mg (3 Ml) Ud) 3 ml IH RQ4 [facility] Last Admin: 08/13/18 07:14 Dose: 3 ml Alprazolam (Xanax) 0.5 mg PO Q8@0600,1400,2200 [facility] Last Admin: 08/13/18 06:30 Dose: 0.5 mg Aspirin (Ecotrin) 325 mg PO DAILY [facility] Last Admin: 08/12/18 08:35 Dose: 325 mg Atorvastatin Calcium (Lipitor) 20 mg PO HS [facility] Last Admin: 08/12/18 22:02 Dose: 20 mg Benzocaine/Menthol (Cepacol Sore Throat) 1 stephanie PO Q2 PRN PRN Reason: Sore Throat Last Admin: 08/11/18 19:42 Dose: 1 stephanie Budesonide (Pulmicort Respules) 0.25 mg INH RBID [facility] Last Admin: 08/13/18 07:14 Dose: 0.25 mg Clopidogrel Bisulfate (Plavix) 75 mg PO DAILY [facility] Last Admin: 08/12/18 08:35 Dose: 75 mg Cyanocobalamin (Vitamin B12 1000 Mcg/Ml Inj) 1,000 mcg IM Q14D [facility] Last Admin: 08/04/18 00:52 Dose: Not Given Ergocalciferol (Drisdol 50,000 Intl Units Cap) 1 cap PO MO [facility] Last Admin: 08/11/18 01:17 Dose: Not Given Fluticasone Propionate (Flonase) 2 spr PRATIBHA HS PRN PRN Reason: Allergy symptoms Last Admin: 08/08/18 21:37 Dose: 2 spr Furosemide (Lasix) 20 mg PO Q48H [facility] Last Admin: 08/12/18 06:22 Dose: 20 mg Home Med (Patient's Own Medication) 5 unit MT Q6 [facility] Last Admin: 08/13/18 03:43 Dose: 5 unit Hydromorphone HCl (Dilaudid) 0.5 mg IVP Q4 PRN PRN Reason: Pain, severe (8-10) Last Admin: 08/12/18 02:02 Dose: 0.5 mg Isosorbide Mononitrate (Imdur Er) 30 mg PO DAILY [facility] Last Admin: 08/12/18 08:35 Dose: 30 mg Losartan Potassium (Cozaar) 25 mg PO DAILY [facility] Last Admin: 08/12/18 08:34 Dose: 25 mg Metoprolol Succinate (Toprol Xl) 25 mg PO DAILY [facility] Last Admin: 08/12/18 08:37 Dose: 25 mg Multivitamins/Minerals (Therapeutic-M Tab) 1 tab PO DAILY [facility] Last Admin: 08/12/18 08:37 Dose: 1 tab Nicotine (Nicoderm Cq) 1 patch TD DAILY [facility] Last Admin: 08/12/18 08:34 Dose: 1 patch Nitroglycerin (Nitrostat Sl Tab) 0.4 mg SL DAILY PRN PRN Reason: angina Octreotide Acetate (Sandostatin) 100 mcg SC Q12 [facility] Last Admin: 08/12/18 21:00 Dose: 100 mcg Ondansetron HCl (Zofran Inj) 4 mg IVP Q6 PRN PRN Reason: Nausea/Vomiting Last Admin: 08/12/18 09:00 Dose: 4 mg Promethazine HCl/Codeine (Phenergan/Codeine Oral Syrup) 10 ml PO Q6 PRN PRN Reason: Cough Last Admin: 08/13/18 03:42 Dose: 10 ml Sodium Chloride (Sodium Chloride Tab) 1 gm PO DAILY [facility] Last Admin: 08/12/18 08:36 Dose: 1 gm Trazodone HCl (Desyrel) 100 mg PO HS [facility] Last Admin: 08/12/18 22:02 Dose: 100 mg Zolpidem Tartrate (Ambien) 5 mg PO HS PRN PRN Reason: Insomnia Last Admin: 08/11/18 01:07 Dose: 5 mg - Labs Labs: 08/07/18 12:26 08/11/18 05:30
[2018-08-13] MEDS: Benzocaine/Menthol (Cepacol) Lozenge PO PRN (09:32)
[2018-08-13] MEDS: Multivitamin With Minerals Tab PO SCH (09:33)
[2018-08-13] MEDS: Aspirin 325 mg EC Tablets PO SCH (09:33)
[2018-08-13] MEDS: Metoprolol Succinate 25 mg XL Tab PO SCH (09:41)
--- NOTE | 2018-08-13 11:02 | CP.PCM.PN ---
Subjective - Date & Time of Evaluation Date of Evaluation: 08/13/18 Time of Evaluation: 10:30 - Subjective Subjective: FEELS BETTER AND STRONGER BREATHING BETTER NO CHEST PAIN Objective - Vital Signs/Intake and Output Vital Signs (last 24 hours): Temp Pulse Resp BP Pulse Ox 97.7 F 68 18 108/55 L 96 08/13/18 07:57 08/13/18 09:41 08/13/18 07:57 08/13/18 09:41 08/13/18 07:57 - Medications Medications: Current Medications Acetaminophen (Tylenol 325mg Tab) 650 mg PO Q6 PRN PRN Reason: Headache Last Admin: 08/05/18 05:25 Dose: 650 mg Albuterol/Ipratropium (Duoneb 3 Mg/0.5 Mg (3 Ml) Ud) 3 ml IH RQ4 [facility] Last Admin: 08/13/18 07:14 Dose: 3 ml Alprazolam (Xanax) 0.5 mg PO Q8@0600,1400,2200 [facility] Last Admin: 08/13/18 06:30 Dose: 0.5 mg Aspirin (Ecotrin) 325 mg PO DAILY [facility] Last Admin: 08/13/18 09:33 Dose: 325 mg Atorvastatin Calcium (Lipitor) 20 mg PO HS [facility] Last Admin: 08/12/18 22:02 Dose: 20 mg Benzocaine/Menthol (Cepacol Sore Throat) 1 stephanie PO Q2 PRN PRN Reason: Sore Throat Last Admin: 08/13/18 09:32 Dose: 1 stephanie Budesonide (Pulmicort Respules) 0.25 mg INH RBID [facility] Last Admin: 08/13/18 07:14 Dose: 0.25 mg Clopidogrel Bisulfate (Plavix) 75 mg PO DAILY [facility] Last Admin: 08/13/18 09:33 Dose: 75 mg Cyanocobalamin (Vitamin B12 1000 Mcg/Ml Inj) 1,000 mcg IM Q14D [facility] Last Admin: 08/04/18 00:52 Dose: Not Given Ergocalciferol (Drisdol 50,000 Intl Units Cap) 1 cap PO MO [facility] Last Admin: 08/11/18 01:17 Dose: Not Given Fluticasone Propionate (Flonase) 2 spr PRATIBHA HS PRN PRN Reason: Allergy symptoms Last Admin: 08/08/18 21:37 Dose: 2 spr Furosemide (Lasix) 20 mg PO Q48H [facility] Last Admin: 08/12/18 06:22 Dose: 20 mg Home Med (Patient's Own Medication) 5 unit MT Q6 [facility] Last Admin: 08/13/18 09:32 Dose: 5 unit Hydromorphone HCl (Dilaudid) 0.5 mg IVP Q4 PRN PRN Reason: Pain, severe (8-10) Last Admin: 08/12/18 02:02 Dose: 0.5 mg Isosorbide Mononitrate (Imdur Er) 30 mg PO DAILY [facility] Last Admin: 08/13/18 09:33 Dose: 30 mg Losartan Potassium (Cozaar) 25 mg PO DAILY [facility] Last Admin: 08/13/18 09:41 Dose: 25 mg Metoprolol Succinate (Toprol Xl) 25 mg PO DAILY [facility] Last Admin: 08/13/18 09:41 Dose: 25 mg Multivitamins/Minerals (Therapeutic-M Tab) 1 tab PO DAILY [facility] Last Admin: 08/13/18 09:33 Dose: 1 tab Nicotine (Nicoderm Cq) 1 patch TD DAILY [facility] Last Admin: 08/13/18 09:31 Dose: 1 patch Nitroglycerin (Nitrostat Sl Tab) 0.4 mg SL DAILY PRN PRN Reason: angina Octreotide Acetate (Sandostatin) 100 mcg SC Q12 [facility] Last Admin: 08/13/18 09:32 Dose: 100 mcg Ondansetron HCl (Zofran Inj) 4 mg IVP Q6 PRN PRN Reason: Nausea/Vomiting Last Admin: 08/12/18 09:00 Dose: 4 mg Prednisone (Prednisone Tab) 20 mg PO DAILY [facility] Last Admin: 08/13/18 09:32 Dose: 20 mg Promethazine HCl/Codeine (Phenergan/Codeine Oral Syrup) 10 ml PO Q6 PRN PRN Reason: Cough Last Admin: 08/13/18 03:42 Dose: 10 ml Sodium Chloride (Sodium Chloride Tab) 1 gm PO DAILY [facility] Last Admin: 08/13/18 09:33 Dose: 1 gm Trazodone HCl (Desyrel) 100 mg PO HS [facility] Last Admin: 08/12/18 22:02 Dose: 100 mg Zolpidem Tartrate (Ambien) 5 mg PO HS PRN PRN Reason: Insomnia Last Admin: 08/11/18 01:07 Dose: 5 mg - Labs Labs: 08/07/18 12:26 08/11/18 05:30 Assessment and Plan - Assessment and Plan (Free Text) Plan: CONTINUE PRESENT TREATMENT CONTINUE [facility] FOR POSSIBLE DISCHARGE 08/15/18
--- NOTE | 2018-08-13 12:09 | CP.PCM.PN ---
Subjective - Date & Time of Evaluation Date of Evaluation: 08/12/18 Time of Evaluation: 15:05 - Subjective Subjective: Seen and examined at the bed side. Patient Optimally treated for Acute Respiratory Failure due to COPD Exacerbation which was precipitated by CHF and CAD, and received Physical and Occupational Therapy at Rehabilitation. Despite all therapies exhausted, Patient's Pulse Oxygenation remains 83-85% in Room Air at rest. Oxygenation improves to 92-98% on 2-4Liter/min of oxygen at rest. Given patient's chronic Hypoxemia due to Chronic Lung and Heart Disease, patient will require Home oxygen upon discharge. Also Continue to have Cough but denies fever or chills. Denies chest pain, Orthopnia or PND at this time. B/L Leg swelling has subsided. Objective - Vital Signs/Intake and Output Vital Signs (last 24 hours): Temp Pulse Resp BP Pulse Ox 97.7 F 68 18 108/55 L 96 08/13/18 07:57 08/13/18 09:41 08/13/18 07:57 08/13/18 09:41 08/13/18 07:57 - Medications Medications: Current Medications Acetaminophen (Tylenol 325mg Tab) 650 mg PO Q6 PRN PRN Reason: Headache Last Admin: 08/05/18 05:25 Dose: 650 mg Albuterol/Ipratropium (Duoneb 3 Mg/0.5 Mg (3 Ml) Ud) 3 ml IH RQ4 [facility] Last Admin: 08/13/18 11:08 Dose: 3 ml Alprazolam (Xanax) 0.5 mg PO Q8@0600,1400,2200 [facility] Last Admin: 08/13/18 06:30 Dose: 0.5 mg Aspirin (Ecotrin) 325 mg PO DAILY [facility] Last Admin: 08/13/18 09:33 Dose: 325 mg Atorvastatin Calcium (Lipitor) 20 mg PO HS [facility] Last Admin: 08/12/18 22:02 Dose: 20 mg Benzocaine/Menthol (Cepacol Sore Throat) 1 stephanie PO Q2 PRN PRN Reason: Sore Throat Last Admin: 08/13/18 09:32 Dose: 1 stephanie Budesonide (Pulmicort Respules) 0.25 mg INH RBID [facility] Last Admin: 08/13/18 07:14 Dose: 0.25 mg Clopidogrel Bisulfate (Plavix) 75 mg PO DAILY [facility] Last Admin: 08/13/18 09:33 Dose: 75 mg Cyanocobalamin (Vitamin B12 1000 Mcg/Ml Inj) 1,000 mcg IM Q14D [facility] Last Admin: 08/04/18 00:52 Dose: Not Given Ergocalciferol (Drisdol 50,000 Intl Units Cap) 1 cap PO MO [facility] Last Admin: 08/11/18 01:17 Dose: Not Given Fluticasone Propionate (Flonase) 2 spr PRATIBHA HS PRN PRN Reason: Allergy symptoms Last Admin: 08/08/18 21:37 Dose: 2 spr Furosemide (Lasix) 20 mg PO Q48H [facility] Last Admin: 08/12/18 06:22 Dose: 20 mg Home Med (Patient's Own Medication) 5 unit MT Q6 [facility] Last Admin: 08/13/18 09:32 Dose: 5 unit Hydromorphone HCl (Dilaudid) 0.5 mg IVP Q4 PRN PRN Reason: Pain, severe (8-10) Last Admin: 08/12/18 02:02 Dose: 0.5 mg Isosorbide Mononitrate (Imdur Er) 30 mg PO DAILY [facility] Last Admin: 08/13/18 09:33 Dose: 30 mg Losartan Potassium (Cozaar) 25 mg PO DAILY [facility] Last Admin: 08/13/18 09:41 Dose: 25 mg Metoprolol Succinate (Toprol Xl) 25 mg PO DAILY [facility] Last Admin: 08/13/18 09:41 Dose: 25 mg Multivitamins/Minerals (Therapeutic-M Tab) 1 tab PO DAILY [facility] Last Admin: 08/13/18 09:33 Dose: 1 tab Nicotine (Nicoderm Cq) 1 patch TD DAILY [facility] Last Admin: 08/13/18 09:31 Dose: 1 patch Nitroglycerin (Nitrostat Sl Tab) 0.4 mg SL DAILY PRN PRN Reason: angina Octreotide Acetate (Sandostatin) 100 mcg SC Q12 [facility] Last Admin: 08/13/18 09:32 Dose: 100 mcg Ondansetron HCl (Zofran Inj) 4 mg IVP Q6 PRN PRN Reason: Nausea/Vomiting Last Admin: 08/12/18 09:00 Dose: 4 mg Prednisone (Prednisone Tab) 20 mg PO DAILY [facility] Last Admin: 08/13/18 09:32 Dose: 20 mg Promethazine HCl/Codeine (Phenergan/Codeine Oral Syrup) 10 ml PO Q6 PRN PRN Reason: Cough Last Admin: 08/13/18 03:42 Dose: 10 ml Sodium Chloride (Sodium Chloride Tab) 1 gm PO DAILY [facility] Last Admin: 08/13/18 09:33 Dose: 1 gm Trazodone HCl (Desyrel) 100 mg PO HS [facility] Last Admin: 08/12/18 22:02 Dose: 100 mg Zolpidem Tartrate (Ambien) 5 mg PO HS PRN PRN Reason: Insomnia Last Admin: 08/11/18 01:07 Dose: 5 mg - Labs Labs: 08/07/18 12:26 08/11/18 05:30 - Constitutional Appears: No Acute Distress, Chronically Ill - Head Exam Head Exam: ATRAUMATIC, NORMAL INSPECTION, NORMOCEPHALIC - Eye Exam Eye Exam: EOMI, Normal appearance, PERRL Pupil Exam: NORMAL ACCOMODATION, PERRL - ENT Exam ENT Exam: Mucous Membranes Moist, Normal Exam - Neck Exam Neck Exam: Full ROM, Normal Inspection. absent: Lymphadenopathy - Respiratory Exam Respiratory Exam: Decreased Breath Sounds, Prolonged Expiratory Phase, Wheezes, NORMAL BREATHING PATTERN. absent: Rales - Cardiovascular Exam Cardiovascular Exam: REGULAR RHYTHM, +S1, +S2. absent: Murmur - GI/Abdominal Exam GI & Abdominal Exam: Soft, Normal Bowel Sounds. absent: Tenderness - Extremities Exam Extremities Exam: Full ROM, Normal Capillary Refill, Normal Inspection. absent: Joint Swelling, Pedal Edema - Back Exam Back Exam: NORMAL INSPECTION - Neurological Exam Neurological Exam: Abnormal Gait, Awake, CN II-XII Intact, Oriented x3 - Psychiatric Exam Psychiatric exam: Normal Affect, Normal Mood - Skin Skin Exam: Dry, Intact, Normal Color, Warm Assessment and Plan (1) COPD exacerbation Status: Resolved (2) Hypoxemia Status: Chronic (3) CHF (congestive heart failure) Status: Chronic (4) Hypertension, uncontrolled Status: Chronic (5) Hyponatremia Status: Chronic (6) Hypertension Status: Chronic (7) Physical deconditioning Status: Acute - Assessment and Plan (Free Text) Plan: O2 Via NC 2-4 L/Min titrate to SPO2>92% Prednisone Duoneb RTC Phenergan DM PRN IV Lasix ASA/Plavix/BB Flonase Imdur Nitro S/L PRN Pain medication PRN
[2018-08-14] MEDS: Promethazine/Cod 6.25mg-10mg/5ml Syr UD PO PRN (03:09)
[2018-08-14] MEDS: Benzocaine/Menthol (Cepacol) Lozenge PO PRN (03:17)
[2018-08-14] MEDS: Albuterol-Ipratrop 3 mg / 0.5 (3 ml) UD IH SCH ×6 (04:34→23:49)
[2018-08-14] MEDS: Budesonide 0.25 mg/2 ml Inhal Susp UD INH SCH ×2 (07:13→19:29)
[2018-08-14] MEDS: Metoprolol Succinate 25 mg XL Tab PO SCH (08:44)
[2018-08-14] MEDS: Multivitamin With Minerals Tab PO SCH (08:44)
[2018-08-14] MEDS: MAGIC MOUTHWASH MT SCH ×4 (08:47→21:07)
[2018-08-14] MEDS: Aspirin 325 mg EC Tablets PO SCH (11:47)
[2018-08-15] MEDS: Promethazine/Cod 6.25mg-10mg/5ml Syr UD PO PRN ×2 (01:18→13:04)
[2018-08-15] MEDS: Albuterol-Ipratrop 3 mg / 0.5 (3 ml) UD IH SCH ×5 (04:13→19:25)
[2018-08-15] MEDS: Benzocaine/Menthol (Cepacol) Lozenge PO PRN (04:34)
[2018-08-15] MEDS: Budesonide 0.25 mg/2 ml Inhal Susp UD INH SCH ×2 (07:17→19:26)
[2018-08-15] MEDS: Multivitamin With Minerals Tab PO SCH (08:23)
[2018-08-15] MEDS: Aspirin 325 mg EC Tablets PO SCH (08:25)
[2018-08-15] MEDS: Metoprolol Succinate 25 mg XL Tab PO SCH (08:25)
--- NOTE | 2018-08-15 10:42 | CP.PCM.PN ---
Subjective - Date & Time of Evaluation Date of Evaluation: 08/15/18 Time of Evaluation: 10:42 - Subjective Subjective: FEELS BETTER NO COMPLAINTS OR DISTRESS VSS NO NEW CLINICAL FINDINGS FOR DISCHARGE HOME TODAY WILL SIGN OFF AND SEE AGAIN AT YOUR REQUEST Objective - Vital Signs/Intake and Output Vital Signs (last 24 hours): Temp Pulse Resp BP Pulse Ox 97.9 F 71 20 91/61 L 98 08/15/18 10:11 08/15/18 10:11 08/15/18 10:11 08/15/18 10:11 08/15/18 10:11 - Medications Medications: Current Medications Acetaminophen (Tylenol 325mg Tab) 650 mg PO Q6 PRN PRN Reason: Headache Last Admin: 08/05/18 05:25 Dose: 650 mg Albuterol/Ipratropium (Duoneb 3 Mg/0.5 Mg (3 Ml) Ud) 3 ml IH RQ4 [facility] Last Admin: 08/15/18 07:13 Dose: Not Given Alprazolam (Xanax) 0.5 mg PO Q8@0600,1400,2200 [facility] Last Admin: 08/15/18 06:36 Dose: 0.5 mg Aspirin (Ecotrin) 325 mg PO DAILY [facility] Last Admin: 08/15/18 08:25 Dose: 325 mg Atorvastatin Calcium (Lipitor) 20 mg PO HS [facility] Last Admin: 08/14/18 21:07 Dose: 20 mg Benzocaine/Menthol (Cepacol Sore Throat) 1 stephanie PO Q2 PRN PRN Reason: Sore Throat Last Admin: 08/15/18 04:34 Dose: 1 stephaine Budesonide (Pulmicort Respules) 0.25 mg INH RBID [facility] Last Admin: 08/15/18 07:17 Dose: Not Given Clopidogrel Bisulfate (Plavix) 75 mg PO DAILY [facility] Last Admin: 08/15/18 08:23 Dose: 75 mg Cyanocobalamin (Vitamin B12 1000 Mcg/Ml Inj) 1,000 mcg IM Q14D [facility] Last Admin: 08/04/18 00:52 Dose: Not Given Ergocalciferol (Drisdol 50,000 Intl Units Cap) 1 cap PO MO [facility] Last Admin: 08/11/18 01:17 Dose: Not Given Fluticasone Propionate (Flonase) 2 spr PRATIBHA HS PRN PRN Reason: Allergy symptoms Last Admin: 08/14/18 03:17 Dose: 2 spr Furosemide (Lasix) 20 mg PO Q48H [facility] Last Admin: 08/14/18 06:35 Dose: 20 mg Home Med (Patient's Own Medication) 5 unit MT Q6 [facility] Last Admin: 08/14/18 21:07 Dose: 5 unit Hydromorphone HCl (Dilaudid) 0.5 mg IVP Q4 PRN PRN Reason: Pain, severe (8-10) Last Admin: 08/12/18 02:02 Dose: 0.5 mg Isosorbide Mononitrate (Imdur Er) 30 mg PO DAILY [facility] Last Admin: 08/15/18 08:24 Dose: 30 mg Losartan Potassium (Cozaar) 25 mg PO DAILY [facility] Last Admin: 08/15/18 08:24 Dose: Not Given Metoprolol Succinate (Toprol Xl) 25 mg PO DAILY [facility] Last Admin: 08/15/18 08:25 Dose: Not Given Multivitamins/Minerals (Therapeutic-M Tab) 1 tab PO DAILY [facility] Last Admin: 08/15/18 08:23 Dose: 1 tab Nicotine (Nicoderm Cq) 1 patch TD DAILY [facility] Last Admin: 08/15/18 08:24 Dose: 1 patch Nitroglycerin (Nitrostat Sl Tab) 0.4 mg SL DAILY PRN PRN Reason: angina Octreotide Acetate (Sandostatin) 100 mcg SC Q12 [facility] Last Admin: 08/15/18 08:22 Dose: 100 mcg Ondansetron HCl (Zofran Inj) 4 mg IVP Q6 PRN PRN Reason: Nausea/Vomiting Last Admin: 08/12/18 09:00 Dose: 4 mg Prednisone (Prednisone Tab) 20 mg PO DAILY [facility] Last Admin: 08/15/18 08:23 Dose: 20 mg Promethazine HCl/Codeine (Phenergan/Codeine Oral Syrup) 10 ml PO Q6 PRN PRN Reason: Cough Last Admin: 08/15/18 01:18 Dose: 10 ml Sodium Chloride (Sodium Chloride Tab) 1 gm PO DAILY [facility] Last Admin: 08/15/18 08:23 Dose: 1 gm Trazodone HCl (Desyrel) 100 mg PO HS [facility] Last Admin: 08/14/18 21:07 Dose: 100 mg Zolpidem Tartrate (Ambien) 5 mg PO HS PRN PRN Reason: Insomnia Last Admin: 08/15/18 01:00 Dose: 5 mg - Labs Labs: 08/07/18 12:26 08/11/18 05:30
[2018-08-15] MEDS: MAGIC MOUTHWASH MT SCH ×4 (13:05→22:04)
--- NOTE | 2018-08-15 22:27 | CP.PCM.PN ---
Subjective - Date & Time of Evaluation Date of Evaluation: 08/13/18 Time of Evaluation: 18:10 Objective - Vital Signs/Intake and Output Vital Signs (last 24 hours): Temp Pulse Resp BP Pulse Ox 97.7 F 82 20 114/72 97 08/15/18 19:28 08/15/18 19:28 08/15/18 19:28 08/15/18 19:28 08/15/18 19:28 - Medications Medications: Current Medications Acetaminophen (Tylenol 325mg Tab) 650 mg PO Q6 PRN PRN Reason: Headache Last Admin: 08/05/18 05:25 Dose: 650 mg Albuterol/Ipratropium (Duoneb 3 Mg/0.5 Mg (3 Ml) Ud) 3 ml IH RQ4 [facility] Last Admin: 08/15/18 19:25 Dose: 3 ml Alprazolam (Xanax) 0.5 mg PO Q8@0600,1400,2200 [facility] Last Admin: 08/15/18 22:02 Dose: 0.5 mg Aspirin (Ecotrin) 325 mg PO DAILY [facility] Last Admin: 08/15/18 08:25 Dose: 325 mg Atorvastatin Calcium (Lipitor) 20 mg PO HS [facility] Last Admin: 08/15/18 22:03 Dose: 20 mg Benzocaine/Menthol (Cepacol Sore Throat) 1 stephanie PO Q2 PRN PRN Reason: Sore Throat Last Admin: 08/15/18 04:34 Dose: 1 stephanie Budesonide (Pulmicort Respules) 0.25 mg INH RBID [facility] Last Admin: 08/15/18 19:26 Dose: 0.25 mg Clopidogrel Bisulfate (Plavix) 75 mg PO DAILY [facility] Last Admin: 08/15/18 08:23 Dose: 75 mg Cyanocobalamin (Vitamin B12 1000 Mcg/Ml Inj) 1,000 mcg IM Q14D [facility] Last Admin: 08/04/18 00:52 Dose: Not Given Ergocalciferol (Drisdol 50,000 Intl Units Cap) 1 cap PO MO [facility] Last Admin: 08/11/18 01:17 Dose: Not Given Fluticasone Propionate (Flonase) 2 spr PRATIBHA HS PRN PRN Reason: Allergy symptoms Last Admin: 08/14/18 03:17 Dose: 2 spr Furosemide (Lasix) 20 mg PO Q48H [facility] Last Admin: 08/14/18 06:35 Dose: 20 mg Home Med (Patient's Own Medication) 5 unit MT Q6 [facility] Last Admin: 08/15/18 22:04 Dose: 5 unit Hydromorphone HCl (Dilaudid) 0.5 mg IVP Q4 PRN PRN Reason: Pain, severe (8-10) Last Admin: 08/12/18 02:02 Dose: 0.5 mg Hydromorphone HCl (Dilaudid) 2 mg PO Q4 PRN PRN Reason: Pain, severe (8-10) Isosorbide Mononitrate (Imdur Er) 30 mg PO DAILY [facility] Last Admin: 08/15/18 08:24 Dose: 30 mg Losartan Potassium (Cozaar) 25 mg PO DAILY [facility] Last Admin: 08/15/18 08:24 Dose: Not Given Metoprolol Succinate (Toprol Xl) 25 mg PO DAILY [facility] Last Admin: 08/15/18 08:25 Dose: Not Given Multivitamins/Minerals (Therapeutic-M Tab) 1 tab PO DAILY [facility] Last Admin: 08/15/18 08:23 Dose: 1 tab Nicotine (Nicoderm Cq) 1 patch TD DAILY [facility] Last Admin: 08/15/18 08:24 Dose: 1 patch Nitroglycerin (Nitrostat Sl Tab) 0.4 mg SL DAILY PRN PRN Reason: angina Octreotide Acetate (Sandostatin) 100 mcg SC Q12 [facility] Last Admin: 08/15/18 22:03 Dose: 100 mcg Ondansetron HCl (Zofran Inj) 4 mg IVP Q6 PRN PRN Reason: Nausea/Vomiting Last Admin: 08/12/18 09:00 Dose: 4 mg Prednisone (Prednisone Tab) 20 mg PO DAILY [facility] Last Admin: 08/15/18 08:23 Dose: 20 mg Promethazine HCl/Codeine (Phenergan/Codeine Oral Syrup) 10 ml PO Q6 PRN PRN Reason: Cough Last Admin: 08/15/18 13:04 Dose: 10 ml Sodium Chloride (Sodium Chloride Tab) 1 gm PO DAILY [facility] Last Admin: 08/15/18 08:23 Dose: 1 gm Trazodone HCl (Desyrel) 100 mg PO HS [facility] Last Admin: 08/15/18 22:03 Dose: 100 mg Zolpidem Tartrate (Ambien) 5 mg PO HS PRN PRN Reason: Insomnia Last Admin: 08/15/18 01:00 Dose: 5 mg - Labs Labs: 08/07/18 12:26 08/11/18 05:30 Assessment and Plan (1) COPD exacerbation Status: Resolved (2) Hypoxemia Status: Chronic (3) CHF (congestive heart failure) Status: Chronic (4) Hypertension, uncontrolled Status: Chronic (5) Hyponatremia Status: Chronic (6) Hypertension Status: Chronic (7) Physical deconditioning Status: Acute
--- NOTE | 2018-08-15 22:29 | CP.PCM.PN ---
Subjective - Date & Time of Evaluation Date of Evaluation: 08/14/18 Time of Evaluation: 18:50 Objective - Vital Signs/Intake and Output Vital Signs (last 24 hours): Temp Pulse Resp BP Pulse Ox 97.7 F 82 20 114/72 97 08/15/18 19:28 08/15/18 19:28 08/15/18 19:28 08/15/18 19:28 08/15/18 19:28 - Medications Medications: Current Medications Acetaminophen (Tylenol 325mg Tab) 650 mg PO Q6 PRN PRN Reason: Headache Last Admin: 08/05/18 05:25 Dose: 650 mg Albuterol/Ipratropium (Duoneb 3 Mg/0.5 Mg (3 Ml) Ud) 3 ml IH RQ4 [facility] Last Admin: 08/15/18 19:25 Dose: 3 ml Alprazolam (Xanax) 0.5 mg PO Q8@0600,1400,2200 [facility] Last Admin: 08/15/18 22:02 Dose: 0.5 mg Aspirin (Ecotrin) 325 mg PO DAILY [facility] Last Admin: 08/15/18 08:25 Dose: 325 mg Atorvastatin Calcium (Lipitor) 20 mg PO HS [facility] Last Admin: 08/15/18 22:03 Dose: 20 mg Benzocaine/Menthol (Cepacol Sore Throat) 1 stephanie PO Q2 PRN PRN Reason: Sore Throat Last Admin: 08/15/18 04:34 Dose: 1 stephanie Budesonide (Pulmicort Respules) 0.25 mg INH RBID [facility] Last Admin: 08/15/18 19:26 Dose: 0.25 mg Clopidogrel Bisulfate (Plavix) 75 mg PO DAILY [facility] Last Admin: 08/15/18 08:23 Dose: 75 mg Cyanocobalamin (Vitamin B12 1000 Mcg/Ml Inj) 1,000 mcg IM Q14D [facility] Last Admin: 08/04/18 00:52 Dose: Not Given Ergocalciferol (Drisdol 50,000 Intl Units Cap) 1 cap PO MO [facility] Last Admin: 08/11/18 01:17 Dose: Not Given Fluticasone Propionate (Flonase) 2 spr PRATIBHA HS PRN PRN Reason: Allergy symptoms Last Admin: 08/14/18 03:17 Dose: 2 spr Furosemide (Lasix) 20 mg PO Q48H [facility] Last Admin: 08/14/18 06:35 Dose: 20 mg Home Med (Patient's Own Medication) 5 unit MT Q6 [facility] Last Admin: 08/15/18 22:04 Dose: 5 unit Hydromorphone HCl (Dilaudid) 0.5 mg IVP Q4 PRN PRN Reason: Pain, severe (8-10) Last Admin: 08/12/18 02:02 Dose: 0.5 mg Hydromorphone HCl (Dilaudid) 2 mg PO Q4 PRN PRN Reason: Pain, severe (8-10) Isosorbide Mononitrate (Imdur Er) 30 mg PO DAILY [facility] Last Admin: 08/15/18 08:24 Dose: 30 mg Losartan Potassium (Cozaar) 25 mg PO DAILY [facility] Last Admin: 08/15/18 08:24 Dose: Not Given Metoprolol Succinate (Toprol Xl) 25 mg PO DAILY [facility] Last Admin: 08/15/18 08:25 Dose: Not Given Multivitamins/Minerals (Therapeutic-M Tab) 1 tab PO DAILY [facility] Last Admin: 08/15/18 08:23 Dose: 1 tab Nicotine (Nicoderm Cq) 1 patch TD DAILY [facility] Last Admin: 08/15/18 08:24 Dose: 1 patch Nitroglycerin (Nitrostat Sl Tab) 0.4 mg SL DAILY PRN PRN Reason: angina Octreotide Acetate (Sandostatin) 100 mcg SC Q12 [facility] Last Admin: 08/15/18 22:03 Dose: 100 mcg Ondansetron HCl (Zofran Inj) 4 mg IVP Q6 PRN PRN Reason: Nausea/Vomiting Last Admin: 08/12/18 09:00 Dose: 4 mg Prednisone (Prednisone Tab) 20 mg PO DAILY [facility] Last Admin: 08/15/18 08:23 Dose: 20 mg Promethazine HCl/Codeine (Phenergan/Codeine Oral Syrup) 10 ml PO Q6 PRN PRN Reason: Cough Last Admin: 08/15/18 13:04 Dose: 10 ml Sodium Chloride (Sodium Chloride Tab) 1 gm PO DAILY [facility] Last Admin: 08/15/18 08:23 Dose: 1 gm Trazodone HCl (Desyrel) 100 mg PO HS [facility] Last Admin: 08/15/18 22:03 Dose: 100 mg Zolpidem Tartrate (Ambien) 5 mg PO HS PRN PRN Reason: Insomnia Last Admin: 08/15/18 01:00 Dose: 5 mg - Labs Labs: 08/07/18 12:26 08/11/18 05:30 Assessment and Plan (1) COPD exacerbation Status: Resolved (2) Hypoxemia Status: Chronic (3) CHF (congestive heart failure) Status: Chronic (4) Hypertension, uncontrolled Status: Chronic (5) Hyponatremia Status: Chronic (6) Hypertension Status: Chronic (7) Physical deconditioning Status: Acute
--- NOTE | 2018-08-15 22:31 | CP.PCM.PN ---
Subjective - Date & Time of Evaluation Date of Evaluation: 08/15/18 Time of Evaluation: 17:35 Objective - Vital Signs/Intake and Output Vital Signs (last 24 hours): Temp Pulse Resp BP Pulse Ox 97.7 F 82 20 114/72 97 08/15/18 19:28 08/15/18 19:28 08/15/18 19:28 08/15/18 19:28 08/15/18 19:28 - Medications Medications: Current Medications Acetaminophen (Tylenol 325mg Tab) 650 mg PO Q6 PRN PRN Reason: Headache Last Admin: 08/05/18 05:25 Dose: 650 mg Albuterol/Ipratropium (Duoneb 3 Mg/0.5 Mg (3 Ml) Ud) 3 ml IH RQ4 [facility] Last Admin: 08/15/18 19:25 Dose: 3 ml Alprazolam (Xanax) 0.5 mg PO Q8@0600,1400,2200 [facility] Last Admin: 08/15/18 22:02 Dose: 0.5 mg Aspirin (Ecotrin) 325 mg PO DAILY [facility] Last Admin: 08/15/18 08:25 Dose: 325 mg Atorvastatin Calcium (Lipitor) 20 mg PO HS [facility] Last Admin: 08/15/18 22:03 Dose: 20 mg Benzocaine/Menthol (Cepacol Sore Throat) 1 tsephanie PO Q2 PRN PRN Reason: Sore Throat Last Admin: 08/15/18 04:34 Dose: 1 stephanie Budesonide (Pulmicort Respules) 0.25 mg INH RBID [facility] Last Admin: 08/15/18 19:26 Dose: 0.25 mg Clopidogrel Bisulfate (Plavix) 75 mg PO DAILY [facility] Last Admin: 08/15/18 08:23 Dose: 75 mg Cyanocobalamin (Vitamin B12 1000 Mcg/Ml Inj) 1,000 mcg IM Q14D [facility] Last Admin: 08/04/18 00:52 Dose: Not Given Ergocalciferol (Drisdol 50,000 Intl Units Cap) 1 cap PO MO [facility] Last Admin: 08/11/18 01:17 Dose: Not Given Fluticasone Propionate (Flonase) 2 spr PRATIBHA HS PRN PRN Reason: Allergy symptoms Last Admin: 08/14/18 03:17 Dose: 2 spr Furosemide (Lasix) 20 mg PO Q48H [facility] Last Admin: 08/14/18 06:35 Dose: 20 mg Home Med (Patient's Own Medication) 5 unit MT Q6 [facility] Last Admin: 08/15/18 22:04 Dose: 5 unit Hydromorphone HCl (Dilaudid) 0.5 mg IVP Q4 PRN PRN Reason: Pain, severe (8-10) Last Admin: 08/12/18 02:02 Dose: 0.5 mg Hydromorphone HCl (Dilaudid) 2 mg PO Q4 PRN PRN Reason: Pain, severe (8-10) Isosorbide Mononitrate (Imdur Er) 30 mg PO DAILY [facility] Last Admin: 08/15/18 08:24 Dose: 30 mg Losartan Potassium (Cozaar) 25 mg PO DAILY [facility] Last Admin: 08/15/18 08:24 Dose: Not Given Metoprolol Succinate (Toprol Xl) 25 mg PO DAILY [facility] Last Admin: 08/15/18 08:25 Dose: Not Given Multivitamins/Minerals (Therapeutic-M Tab) 1 tab PO DAILY [facility] Last Admin: 08/15/18 08:23 Dose: 1 tab Nicotine (Nicoderm Cq) 1 patch TD DAILY [facility] Last Admin: 08/15/18 08:24 Dose: 1 patch Nitroglycerin (Nitrostat Sl Tab) 0.4 mg SL DAILY PRN PRN Reason: angina Octreotide Acetate (Sandostatin) 100 mcg SC Q12 [facility] Last Admin: 08/15/18 22:03 Dose: 100 mcg Ondansetron HCl (Zofran Inj) 4 mg IVP Q6 PRN PRN Reason: Nausea/Vomiting Last Admin: 08/12/18 09:00 Dose: 4 mg Prednisone (Prednisone Tab) 20 mg PO DAILY [facility] Last Admin: 08/15/18 08:23 Dose: 20 mg Promethazine HCl/Codeine (Phenergan/Codeine Oral Syrup) 10 ml PO Q6 PRN PRN Reason: Cough Last Admin: 08/15/18 13:04 Dose: 10 ml Sodium Chloride (Sodium Chloride Tab) 1 gm PO DAILY [facility] Last Admin: 08/15/18 08:23 Dose: 1 gm Trazodone HCl (Desyrel) 100 mg PO HS [facility] Last Admin: 08/15/18 22:03 Dose: 100 mg Zolpidem Tartrate (Ambien) 5 mg PO HS PRN PRN Reason: Insomnia Last Admin: 08/15/18 01:00 Dose: 5 mg - Labs Labs: 08/07/18 12:26 08/11/18 05:30 Assessment and Plan (1) COPD exacerbation Status: Resolved (2) Hypoxemia Status: Chronic (3) CHF (congestive heart failure) Status: Chronic (4) Hypertension, uncontrolled Status: Chronic (5) Hyponatremia Status: Chronic (6) Hypertension Status: Chronic (7) Physical deconditioning Status: Acute
[2018-08-16] MEDS: Albuterol-Ipratrop 3 mg / 0.5 (3 ml) UD IH SCH ×6 (00:06→19:10)
[2018-08-16] MEDS: Promethazine/Cod 6.25mg-10mg/5ml Syr UD PO PRN (01:20)
[2018-08-16] MEDS: MAGIC MOUTHWASH MT SCH ×4 (04:02→22:37)
[2018-08-16] MEDS: Budesonide 0.25 mg/2 ml Inhal Susp UD INH SCH ×2 (07:33→19:10)
[2018-08-16] MEDS: Multivitamin With Minerals Tab PO SCH (09:32)
[2018-08-16] MEDS: Aspirin 325 mg EC Tablets PO SCH (09:33)
[2018-08-16] MEDS: Metoprolol Succinate 25 mg XL Tab PO SCH (10:09)
--- NOTE | 2018-08-16 13:12 | CP.PCM.PN ---
Subjective - Date & Time of Evaluation Date of Evaluation: 08/16/18 Time of Evaluation: 12:00 - Subjective Subjective: NO CHEST PAIN BREATHING BETTER Objective - Vital Signs/Intake and Output Vital Signs (last 24 hours): Temp Pulse Resp BP Pulse Ox 97.8 F 83 20 126/55 L 100 08/16/18 10:25 08/16/18 10:25 08/16/18 10:25 08/16/18 10:25 08/16/18 10:25 - Medications Medications: Current Medications Acetaminophen (Tylenol 325mg Tab) 650 mg PO Q6 PRN PRN Reason: Headache Last Admin: 08/05/18 05:25 Dose: 650 mg Albuterol/Ipratropium (Duoneb 3 Mg/0.5 Mg (3 Ml) Ud) 3 ml IH RQ4 [facility] Last Admin: 08/16/18 11:08 Dose: 3 ml Alprazolam (Xanax) 0.5 mg PO Q8@0600,1400,2200 [facility] Last Admin: 08/16/18 06:35 Dose: 0.5 mg Aspirin (Ecotrin) 325 mg PO DAILY [facility] Last Admin: 08/16/18 09:33 Dose: 325 mg Atorvastatin Calcium (Lipitor) 20 mg PO HS [facility] Last Admin: 08/15/18 22:03 Dose: 20 mg Benzocaine/Menthol (Cepacol Sore Throat) 1 stephanie PO Q2 PRN PRN Reason: Sore Throat Last Admin: 08/15/18 04:34 Dose: 1 stephanie Budesonide (Pulmicort Respules) 0.25 mg INH RBID [facility] Last Admin: 08/16/18 07:33 Dose: 0.25 mg Clopidogrel Bisulfate (Plavix) 75 mg PO DAILY [facility] Last Admin: 08/16/18 09:33 Dose: 75 mg Cyanocobalamin (Vitamin B12 1000 Mcg/Ml Inj) 1,000 mcg IM Q14D [facility] Last Admin: 08/04/18 00:52 Dose: Not Given Ergocalciferol (Drisdol 50,000 Intl Units Cap) 1 cap PO MO [facility] Last Admin: 08/11/18 01:17 Dose: Not Given Fluticasone Propionate (Flonase) 2 spr PRATIBHA HS PRN PRN Reason: Allergy symptoms Last Admin: 08/14/18 03:17 Dose: 2 spr Furosemide (Lasix) 20 mg PO Q48H [facility] Last Admin: 08/16/18 06:36 Dose: 20 mg Home Med (Patient's Own Medication) 5 unit MT Q6 [facility] Last Admin: 08/16/18 09:30 Dose: 5 unit Hydromorphone HCl (Dilaudid) 0.5 mg IVP Q4 PRN PRN Reason: Pain, severe (8-10) Last Admin: 08/12/18 02:02 Dose: 0.5 mg Hydromorphone HCl (Dilaudid) 2 mg PO Q4 PRN PRN Reason: Pain, severe (8-10) Last Admin: 08/16/18 04:19 Dose: 2 mg Isosorbide Mononitrate (Imdur Er) 30 mg PO DAILY [facility] Last Admin: 08/16/18 09:33 Dose: 30 mg Losartan Potassium (Cozaar) 25 mg PO DAILY [facility] Last Admin: 08/16/18 09:32 Dose: 25 mg Metoprolol Succinate (Toprol Xl) 25 mg PO DAILY [facility] Last Admin: 08/16/18 10:09 Dose: 25 mg Multivitamins/Minerals (Therapeutic-M Tab) 1 tab PO DAILY [facility] Last Admin: 08/16/18 09:32 Dose: 1 tab Nicotine (Nicoderm Cq) 1 patch TD DAILY [facility] Last Admin: 08/16/18 09:31 Dose: 1 patch Nitroglycerin (Nitrostat Sl Tab) 0.4 mg SL DAILY PRN PRN Reason: angina Octreotide Acetate (Sandostatin) 100 mcg SC Q12 [facility] Last Admin: 08/16/18 09:30 Dose: 100 mcg Ondansetron HCl (Zofran Inj) 4 mg IVP Q6 PRN PRN Reason: Nausea/Vomiting Last Admin: 08/12/18 09:00 Dose: 4 mg Prednisone (Prednisone Tab) 20 mg PO DAILY [facility] Last Admin: 08/16/18 09:33 Dose: 20 mg Promethazine HCl/Codeine (Phenergan/Codeine Oral Syrup) 10 ml PO Q6 PRN PRN Reason: Cough Last Admin: 08/16/18 01:20 Dose: 10 ml Sodium Chloride (Sodium Chloride Tab) 1 gm PO DAILY [facility] Last Admin: 08/16/18 09:32 Dose: 1 gm Trazodone HCl (Desyrel) 100 mg PO HS [facility] Last Admin: 08/15/18 22:03 Dose: 100 mg Zolpidem Tartrate (Ambien) 5 mg PO HS PRN PRN Reason: Insomnia Last Admin: 08/16/18 01:19 Dose: 5 mg - Labs Labs: 08/07/18 12:26 08/11/18 05:30 - Respiratory Exam Respiratory Exam: Clear to Ausculation Bilateral - Cardiovascular Exam Cardiovascular Exam: REGULAR RHYTHM, +S1, +S2 - Extremities Exam Additional comments: NO LE EDEMA Assessment and Plan - Assessment and Plan (Free Text) Assessment: CAD COPD WIDTH PNEUMONIA-TREATED HYPERTENSION HYPERLIPIDEMIA Plan: CONTINUE LOSARTAN, METOPROLOL, ASPIRIN, CLOPIDOGREL, ATORVASTATIN, NITRATES, FUROSEMIDE AND COPD MEDS FOR DISCHARGE IN AM
[2018-08-17] MEDS: Albuterol-Ipratrop 3 mg / 0.5 (3 ml) UD IH SCH ×4 (00:22→11:06)
[2018-08-17] MEDS: Promethazine/Cod 6.25mg-10mg/5ml Syr UD PO PRN ×2 (01:44→09:42)
[2018-08-17] MEDS: MAGIC MOUTHWASH MT SCH ×2 (04:30→10:24)
[2018-08-17] MEDS: Budesonide 0.25 mg/2 ml Inhal Susp UD INH SCH (07:32)
[2018-08-17 08:04] VITALS: BP 99/52; PULSE 69; RESP 18; TEMP 98.7; O2SAT 97
[2018-08-17] MEDS: Aspirin 325 mg EC Tablets PO SCH (09:16)
[2018-08-17] MEDS: Multivitamin With Minerals Tab PO SCH (09:18)
[2018-08-17] MEDS: Metoprolol Succinate 25 mg XL Tab PO SCH (09:19)
--- NOTE | 2018-08-18 23:47 | CP.PCM.PN ---
Subjective - Date & Time of Evaluation Date of Evaluation: 08/16/18 Objective - Vital Signs/Intake and Output Vital Signs (last 24 hours): Temp Pulse Resp BP Pulse Ox 98.7 F 69 18 99/52 L 97 08/17/18 08:02 08/17/18 08:02 08/17/18 08:02 08/17/18 09:19 08/17/18 08:02 - Labs Labs: 08/07/18 12:26 08/11/18 05:30 Assessment and Plan (1) COPD exacerbation Status: Resolved (2) Hypoxemia Status: Chronic (3) CHF (congestive heart failure) Status: Chronic (4) Hypertension, uncontrolled Status: Chronic (5) Hyponatremia Status: Chronic (6) Hypertension Status: Chronic (7) Physical deconditioning Status: Acute
--- NOTE | 2018-08-18 23:48 | CP.PCM.DIS ---
Provider - Provider Date of Admission: 08/03/18 19:30 Attending physician: Ana Gonzales MD Consults: 08/04/18 01:48 Nephrology Consult Routine Comment: Consulting Provider: Alberto Thompson Consulting Physician: Alberto Thompson Reason for Consult: hyponatremia 08/04/18 01:50 Infectious Disease Consult Routine Comment: Consulting Provider: Sly Wray Consulting Physician: Sly Wray Reason for Consult: follow up, pt transfer from [facility] 08/04/18 01:51 Cardiology Consult Routine Comment: Consulting Provider: Sly Rutledge Consulting Physician: Sly Rutledge Reason for Consult: follow up - pt transfer from [facility] 08/04/18 01:59 Social Work Referral Routine Comment: evaluate needs Physician Instructions: Reason For Exam: new admission 08/04/18 04:01 Wound Care [Nursing Referral for Wound Care] Routine Comment: Physician Instructions: Reason For Exam: sulma [email or web address] 16. 08/04/18 13:17 Pulmonology Consult Routine Comment: Consulting Provider: Nam Huddleston I Consulting Physician: Nam Huddleston I Reason for Consult: COPD Time Spent in preparation of Discharge (in minutes): 25 Diagnosis - Discharge Diagnosis (1) COPD exacerbation Status: Resolved Priority: High (2) Hypoxemia Status: Chronic (3) CHF (congestive heart failure) Status: Chronic (4) Hypertension, uncontrolled Status: Chronic Priority: High (5) Hyponatremia Status: Chronic (6) Hypertension Status: Chronic Priority: Low (7) Physical deconditioning Status: Acute Hospital Course - Lab Results Lab Results: Most Recent Lab Values WBC 15.4 K/uL (4.8-10.8) H 08/07/18 12:26 RBC 3.39 Mil/uL (3.80-5.20) L 08/07/18 12:26 Hgb 11.0 g/dL (12.0-16.0) L 08/07/18 12:26 Hct 32.8 % (34.0-47.0) L 08/07/18 12:26 MCV 96.5 fl (81.0-99.0) 08/07/18 12:26 MCH 32.5 pg (27.0-31.0) H 08/07/18 12:26 MCHC 33.7 g/dL (33.0-37.0) 08/07/18 12:26 RDW 15.6 % (11.5-14.5) H 08/07/18 12:26 Plt Count 219 K/uL (130-400) 08/07/18 12:26 MPV 7.3 fl (7.2-11.7) 08/07/18 12:26 Neut % (Auto) 96.3 % (50.0-75.0) H 08/07/18 12:26 Lymph % (Auto) 1.5 % (20.0-40.0) L 08/07/18 12:26 Woodruff % (Auto) 1.8 % (0.0-10.0) 08/07/18 12: Eos % (Auto) 0.0 % (0.0-4.0) 08/07/18 12: Baso % (Auto) 0.4 % (0.0-2.0) 08/07/18 12:26 Neut # (Auto) 14.8 K/uL (1.8-7.0) H 08/07/18 12:26 Lymph # (Auto) 0.2 K/uL (1.0-4.3) L 08/07/18 12:26 Woodruff # (Auto) 0.3 K/uL (0.0-0.8) 08/07/18 12: Eos # (Auto) 0.0 K/uL (0.0-0.7) 08/07/18 12: Baso # (Auto) 0.1 K/uL (0.0-0.2) 08/07/18 12:26 Neutrophils % (Manual) 94 % (42-75) H 08/07/18 12:26 Lymphocytes % (Manual) 4 % (20-50) L 08/07/18 12:26 Monocytes % (Manual) 2 % (0-10) 08/07/18 12:26 Toxic Granulation Present 08/07/18 12:26 Platelet Estimate Normal (NORMAL) 08/07/18 12:26 Anisocytosis (manual) Slight 08/07/18 12:26 Sodium 131 mmol/l (132-148) L 08/11/18 05:30 Potassium 4.0 MMOL/L (3.6-5.0) 08/11/18 05:30 Chloride 92 mmol/L (98-107) L 08/11/18 05:30 Carbon Dioxide 33 mmol/L (22-30) H 08/11/18 05:30 Anion Gap 10 (10-20) 08/11/18 05:30 BUN 31 mg/dl (7-17) H 08/11/18 05:30 Creatinine 0.8 mg/dl (0.7-1.2) 08/11/18 05:30 Est GFR ( Amer) > 60 08/11/18 05:30 Est GFR (Non-Af Amer) > 60 08/11/18 05:30 Random Glucose 90 mg/dL (65-105) 08/11/18 05:30 Calcium 8.5 mg/dL (8.4-10.2) 08/11/18 05:30 Total Bilirubin 0.5 mg/dl (0.2-1.3) 08/07/18 12:26 AST 31 U/L (14-36) 08/07/18 12:26 ALT 65 U/L (9-52) H 08/07/18 12:26 Alkaline Phosphatase 81 U/L (38-126) 08/07/18 12:26 NT-Pro-B Natriuret Pep 3060 pg/ml (0-900) H 08/07/18 12:26 Total Protein 5.5 G/DL (6.3-8.2) L 08/07/18 12:26 Albumin 2.8 g/dL (3.5-5.0) L 08/07/18 12:26 Globulin 2.7 gm/dL (2.2-3.9) 08/07/18 12:26 Albumin/Globulin Ratio 1.0 (1.0-2.1) 08/07/18 12:26 Urine Osmolality 620 mosm/kg (300-1000) 08/04/18 11:00 Ur Random Sodium 124 mmol/L 08/04/18 11:00 Discharge Exam - Head Exam Head Exam: ATRAUMATIC, NORMAL INSPECTION, NORMOCEPHALIC Discharge Plan - Follow Up Plan Condition: FAIR Disposition: DISCHARGED TO HOME CARE Instructions: Oxygen Therapy, Adult (DC), Preventing Falls, Exacerbation of COPD (DC)
== END 2018-08-17 12:15 | disposition home health service (06) | DRG 190 ==
LOC: H.TCU 19:30
PROVIDERS: ADMIT Internal Medicine; ATTEND Internal Medicine
PROC: F07Z9FZ Gait Training/Functional Ambulation Treatment using Assistive, Adaptive, Supportive or Protective Equipment (ICD-10-PCS; principal; 2018-08-03)
PROC: F08Z4FZ Home Management Treatment using Assistive, Adaptive, Supportive or Protective Equipment (ICD-10-PCS; 2018-08-03)
PROC: 3E0F73Z Introduction of Anti-inflammatory into Respiratory Tract, Via Natural or Artificial Opening (ICD-10-PCS; 2018-08-03)
PROC: 3E03329 Introduction of Other Anti-infective into Peripheral Vein, Percutaneous Approach (ICD-10-PCS; 2018-08-03)
PROC: 3E0F7GC Introduction of Other Therapeutic Substance into Respiratory Tract, Via Natural or Artificial Opening (ICD-10-PCS; 2018-08-03)
PROC: F07M6FZ Therapeutic Exercise Treatment of Musculoskeletal System - Whole Body using Assistive, Adaptive, Supportive or Protective Equipment (ICD-10-PCS; 2018-08-04)
DX: J44.1 Chronic obstructive pulmonary disease with (acute) exacerbation (principal); I22.2 Subsequent non-ST elevation (NSTEMI) myocardial infarction; I50.22 Chronic systolic (congestive) heart failure; E87.1 Hypo-osmolality and hyponatremia; B37.0 Candidal stomatitis; J44.0 Chronic obstructive pulmonary disease with (acute) lower respiratory infection; J20.9 Acute bronchitis, unspecified; I11.0 Hypertensive heart disease with heart failure; R09.02 Hypoxemia; I25.10 Atherosclerotic heart disease of native coronary artery without angina pectoris; R13.10 Dysphagia, unspecified; M79.7 Fibromyalgia; E78.5 Hyperlipidemia, unspecified; E78.00 Pure hypercholesterolemia, unspecified; F41.9 Anxiety disorder, unspecified; F17.210 Nicotine dependence, cigarettes, uncomplicated; Z66 Do not resuscitate; Z99.81 Dependence on supplemental oxygen; Z93.2 Ileostomy status; Z95.5 Presence of coronary angioplasty implant and graft; Z88.2 Allergy status to sulfonamides